=== PATIENT | female | born 1955 | race Caucasian/White ===

== ENCOUNTER 2023-06-06 09:47 | Outpatient (OUT) | payer OTHER, SELFPAY ==
--- NOTE | 2023-06-06 | XR_ITS ---
[address] [address] Patient Name: HENRY BROCK MRN: [id number] date: 1955 Sex: F Assigned Patient Location: [facility] Current Patient Location: [facility] Accession/Order Number: [id number] Exam Date: 06/06/2023 10:08 Report Date: 06/06/2023 11:14 At the request of: SIERRA AUGUSTINE Procedure: XR ankle RT min 3V PROCEDURE: XR ankle RT min 3V, XR foot RT min 3V COMPARISON: 06/06/2023 HISTORY: RIGHT ANKLE PAIN FINDINGS: BONES:Severe hallux valgus with degenerative osteoarthropathy. No acute fracture or dislocation. Mild degenerative changes. SOFT TISSUES:Moderate medial ankle soft tissue swelling EFFUSION:None visible. OTHER: Negative. XR/XR ankle RT min 3V IMPRESSION: Medial ankle soft tissue swelling No acute fracture Electronically authenticated by: JG RUTLEDGE Date: 06/06/2023 11:14
--- NOTE | 2023-06-06 | XR_ITS ---
[address] [address] Patient Name: HENRY BROCK MRN: [id number] date: 1955 Sex: F Assigned Patient Location: [facility] Current Patient Location: [facility] Accession/Order Number: [id number] Exam Date: 06/06/2023 10:08 Report Date: 06/06/2023 11:14 At the request of: SIERRA AUGUSTINE Procedure: XR foot RT min 3V PROCEDURE: XR ankle RT min 3V, XR foot RT min 3V COMPARISON: 06/06/2023 HISTORY: RIGHT ANKLE PAIN FINDINGS: BONES:Severe hallux valgus with degenerative osteoarthropathy. No acute fracture or dislocation. Mild degenerative changes. SOFT TISSUES:Moderate medial ankle soft tissue swelling EFFUSION:None visible. OTHER: Negative. XR/XR foot RT min 3V IMPRESSION: Medial ankle soft tissue swelling No acute fracture Electronically authenticated by: JG RUTLEDGE Date: 06/06/2023 11:14
== END 2023-06-06 09:48 | disposition home or self-care (01) ==
PROVIDERS: Visit Provider Podiatrist Foot & Ankle Surgery
DX: M25.571 Pain in right ankle and joints of right foot (principal)
CPT/HCPCS: 73610; 73630

== ENCOUNTER 2023-07-10 10:05 | Outpatient (OUT) | payer MEDICARE, SELFPAY ==
--- OUTSIDE RECORDS SUMMARY | 2023-07-10 10:23 | XMS_ITS | CCD ---
Author Name Unknown Address [id number] [place] [address] Organization [facility] Care Team Providers Care Quality Head Name Role Phone SHIN SCHWARTZ Unavailable Unavailable [facility] Unavailable Unavailable SHIN ARIAS Unavailable Unavailable Arias Shin NORMAN Primary Care Provider Arias Shin NORMAN Primary Care Provider ATWAY, SAID A Referring Unavailable SHIN ARIAS Primary Care Unavailable ATWAY, SAID A Attending Unavailable ATWAY, SAID A Attending Unavailable SELF, SELF Referring Unavailable SHIN ARIAS Primary Care Unavailable ARIASSHIN AREVALO Primary Care Unavailable ATWAY, SAID A Referring Unavailable ARIASSHIN Primary Care Unavailable ATWAY, SAID A Attending Unavailable Arias hSin NORMAN Primary Care Provider Arias Shin NORMAN Primary Care Provider Arias Shin NORMAN Primary Care Provider SHIN ARIAS Attending Unavailable ARIAS, SHIN Mckeon Primary Care Unavailable ARIAS, SHIN L Primary Care Unavailable ARIAS, SHIN L Attending Unavailable ARIASSHIN Primary Care Unavailable ARIASSHIN L Referring Unavailable ARIAS, SHIN Mckeon Primary Care Unavailable ARIAS, SHIN L Referring Unavailable ARIAS, SHIN Mckeon Primary Care Unavailable ARIAS, SHIN L Referring Unavailable ARIAS, SHIN L Primary Care Unavailable ARIAS, SHIN L Primary Care Unavailable ARIAS, SHIN L Attending Unavailable ARIAS, SHIN Mckeon Primary Care Unavailable ARIAS, SHIN L Attending Unavailable ARIAS, SHIN L Primary Care Unavailable ARIAS, SHIN L Referring Unavailable ARIASSHIN L Primary Care Unavailable ARIAS, SHIN L Attending Unavailable SHIN ARIAS L Primary Care Unavailable CARL LEYVA Attending Unavailable SHIN ARIAS L Primary Care Unavailable CARL LEYVA Attending Unavailable SHIN ARIAS L Primary Care Unavailable SHIN ARIAS L Primary Care Unavailable Shin Arias Primary Care Unavailable Mata [place]ilo Attending Unavailable Shin Arias Primary Care Unavailable Shin Arias Attending Unavailable Shin Arias Referring Unavailable Allergies Allergy Classification Reported Allergen(s) Allergy Type Date of Onset Reaction(s) Facility (20 sources) morphine; Translations: [MORPHINE SULFATE] Drug Allergy 5 Itching [facility] Repository (20 sources) sulfamethoxazole; Translations: [SULFAMETHOXAZOLE ] Drug Allergy 5 Hives [facility] Repository (20 sources) tea tree oil; Translations: [TEA TREE OIL] Drug Allergy 0 Rash [facility] Repository (2 sources) Morphine Drug Allergy 5 Itching [facility] (1 source) Trimethoprim Drug Allergy 0 unknown [facility] Work Phone: (1 source) tea tree Allergy to substance 0 unknown [facility] Work Phone: (1 source) Morphine Drug Allergy 0 [facility] Repository (1 source) Trimethoprim Drug Allergy 0 [facility] Repository (1 source) tea tree Drug allergy (disorder) 0 [facility] Repository Medications Current Medications Medication Drug Class(es) Dates Sig (Normalized) Sig (Original) amphetamine aspartate 2.5 mg / amphetamine sulfate 2.5 mg / dextroamphetamine saccharate 2.5 mg / dextroamphetamine sulfate 2.5 mg oral tablet (20 sources) Central Nervous System Stimulant Start: 05-18-2023 End: 07-23-2023 take 1 tablet by mouth once daily dextroamphetamine- amphetamine (ADDERALL) 10 mg tablet Indications: Concentration deficit Take 0.5-1 tablets by mouth once daily for 30 days. 30 tablet 0 06/23/2023 07/23/2023 Active Start: 02-20-2023 End: 05-12-2023 take 1 tablet by mouth once daily dextroamphetamine-amphetamine (ADDERALL) 10 mg tablet Indications: Concentration deficit Take 0.5-1 tablets by mouth once daily for 30 days. 30 tablet 0 04/12/2023 05/12/2023 Active Start: 02-13-2023 End: 02-16-2023 take 1 tablet by mouth once daily dextroamphetamine-amphetamine (ADDERALL) 10 mg tablet Indications: Concentration deficit Take 0.5-1 tablets by mouth once daily for 30 days. 30 tablet 0 02/13/2023 02/16/2023 Discontinued Start: 12-26-2022 End: 02-04-2023 take 1 tablet by mouth once daily dextroamphetamine-amphetamine (ADDERALL) 10 mg tablet Indications: Concentration deficit Take 0.5-1 tablets by mouth once daily for 30 days. 30 tablet 0 01/05/2023 02/04/2023 Active Start: 11-08-2022 End: 12-24-2022 take 1 tablet by mouth once daily dextroamphetamine-amphetamine (ADDERALL) 10 mg tablet Indications: Concentration deficit Take 0.5-1 tablets by mouth once daily for 30 days. 30 tablet 0 11/08/2022 12/24/2022 Discontinued Start: 10-04-2022 End: 11-03-2022 take 1 tablet by mouth once daily dextroamphetamine-amphetamine (ADDERALL) 10 mg tablet Indications: Concentration deficit Take 0.5-1 tablets by mouth once daily for 30 days. 30 tablet 0 10/04/2022 11/03/2022 Active Start: 06-20-2022 End: 07-21-2022 take 1 tablet by mouth once daily dextroamphetamine-amphetamine (ADDERALL) 10 mg tablet Indications: Concentration deficit Take 0.5-1 tablets by mouth once daily for 30 days. 30 tablet 0 06/21/2022 Active Start: 10-22-2021 End: 06-17-2022 take 1 tablet by mouth once daily dextroamphetamine-amphetamine (ADDERALL) 10 mg tablet Indications: Concentration deficit Take 0.5-1 tablets by mouth once daily for 30 days. 30 tablet 0 05/11/2022 06/17/2022 Discontinued Comment on above: Take 0.5-1 tablets b y mouth once daily for 30 days. Ca-D3-Mag Sn-Cyxh-Ehf-Ravi-Bor (Calcium 600-D3 Plus (Mag-Zinc)) 600 mg calcium- 800 unit-50 mg tablet (1 source) Start: 0 Ca-D3-Mag Ys-Hjsb-Fau-Ravi-Bor (Calcium 600-D3 Plus (Mag-Zinc)) 600 mg calcium- 800 unit-50 mg tablet Active TABLET PO April 01, 2020 12:00am calcium ascorbate 500 mg oral tablet (1 source) Start: 0 take 500 mg by mouth once daily Ascorbate Calcium (Vitamin C) Active 500 MG PO DAILY April 01, 2020 12:00am cholecalciferol 0.01 mg oral capsule (20 sources) Vitamin D Start: 0 take 10 ug by mouth once daily Cholecalciferol (Vitamin D3) Active 10 MCG PO DAILY April 01, 2020 12:00am Start: 08-15-2017 take 1 capsule by mo [facility] once daily Cholecalciferol, Vitamin D3, 5,000 unit cap Take 1 capsule by mouth once daily. 90 capsule 3 08/15/2017 Active Comment on above: Take 1 capsule by mo ut once daily. docusate sodium 100 mg oral capsule (1 source) Start: 10-05-19 19 take 1 capsule by mouth twice daily docusate 100 MG Cap Take 1 capsule by mouth 2 times daily. 0 10/04/2018 Active 1 ml heparin sodium, porcine 5000 unt/ml prefilled syringe (1 source) Unfractionated Heparin, Anti-coagulant Start: 10-04-19 19 heparin 5000 UNIT/ML Solution Indications: DVT/PE prophylaxis Inject 1 mL under the skin 3 times daily (at 8am, 4 pm and 10pm). 0 10/03/2018 Active lisinopril 5 mg oral tablet (1 source) Angiotensin Converting Enzyme Inhibitor Start: 10-05-19 19 take 1 tablet by mouth once daily lisinopril 5 MG Tab tablet Take 1 tablet by mouth daily. 0 10/04/2018 Active meloxicam 15 mg oral tablet (1 source) Nonsteroidal Anti-inflammatory Drug Start: 04-01-20 20 take 1 tablet by mouth once daily Meloxicam (Mobic) 15 mg tablet Active 15 MG PO DAILY April 01, 2020 12:00am Do not take in conjunction with other NSAIDs. Multivitamin With Minerals (Hair,Skin And Nails) tablet (1 source) Start: 04-01-20 take 1 tablet by mouth once daily Multivitamin With Minerals (Hair,Skin And Nails) tablet Active 1 TABLET PO DAILY April 01, 2020 12:00am perflutren lipid microspheres 1.3 mL in NaCl (PF) 0.9% 10 mL injection (DEFINITY) (20 sources) Start: 05-19-19 End: 08-18-19 perflutren lipid microspheres 1.3 mL in NaCl (PF) 0.9% 10 mL injection (DEFINITY) sennosides, chcf 8.6 mg oral tablet (1 source) Start: 10-05-19 19 take 1 tablet by mouth once daily in the morning senna 8.6 MG Tab Take 1 tablet by mouth daily every morning. 0 10/04/2018 Active 125 ml sodium chloride 9 mg/ml prefilled syringe (20 sources) Start: 05-19-19 End: 08-18-19 sodium chloride 0.9 % (flush) 10 mL (BD POSIFLUSH) Turmeric extract (1 source) Start: 04-01-20 Turmeric Active MG PO April 01, 2020 12:00am Completed/Discontinued Medications Medication Drug Class(es) Dates Sig (Normalized) Sig (Original) ascorbic acid 500 mg oral tablet (20 sources) Vitamin C Start: 08-15-2017 take 1 tablet by mouth three times daily ascorbic acid, vitamin C, (VITAMIN C) 500 mg tablet Take 1 tablet by mouth three times daily. 270 tablet 3 08/15/2017 Active Comment on above: Take 1 tablet by portia th three times daily. aspirin 325 mg oral tablet (20 sources) Platelet Aggregation Inhibitor, Nonsteroidal Anti-inflammatory Drug Start: 10-11-2018 End: 11-25-2022 take 1 tablet by mouth once daily aspirin 325 mg tablet Take 1 tablet by mouth once daily. 0 10/15/2018 11/25/2022 Discontinued (Discontinued by Patient) Start: 10-04-2018 take 1 tablet by portia th once daily aspirin EC [address] Take 1 tablet by mouth daily. 0 10/04/2018 Active Start: 11-18-2011 take 4 tablets by mouth once A spirin 81 mg Tab Indications: Chest pain at rest Take 4 tablets by mouth one time only for 1 dose. 4 tablet 0 11/18/2011 Active Comment on above: Take 4 tablets by mo uth one time only for 1 dose. Take 1 tablet by portia once daily. atorvastatin 80 mg oral tablet (2 sources) HMG-CoA Reductase Inhibitor Start: 9 End: 9 take 80 mg by mouth at bedtime Atorvastatin Discontinued 80 MG PO AT BEDTIME October 10, 2018 11:00pm November 22, 2018 3:24pm Start: 10-03-2018 take 1 tablet by portia at bedtime atorvastatin 40 MG Tab tablet Take 1 tablet by mouth at bedtime. 0 10/03/2018 Active cephalexin 500 mg oral capsule (1 source) Cephalosporin Antibacterial Start: 10-23-2019 End: 04-01-2020 take 500 mg by mouth four times daily Cephalexin Discontinued 500 MG PO 4 TIMES DAILY October 22, 2019 11:00pm April 01, 2020 9:49am CPAP (20 sources) Start: 05-14-2020 CPAP Indications: HERNAN (obstructive sleep apnea) Initiate CPAP @ 6 cm of water with humidification. Mask (per patient preference) optional chin strap (if indicated) , filters, tubing, humidifier and lifetime supplies. 1 Device 0 05/14/2020 Active Comment on above: Initiate CPAP @ 6 cm of water with humidification. Mask (per patient preference) optional chin strap (if indicated) , filters, tubing, humidifier and lifetime supplies. cyclobenzaprine hydrochloride 10 mg oral tablet (20 sources) Muscle Relaxant Start: 08-15-2017 End: 11-25-2022 take 1 tablet by mouth three times daily as needed for muscle spasms cyclobenzaprine (FLEXERIL) 10 mg tablet Indications: Fall, initial encounter Take 1 tablet by mouth three times daily as needed for Muscle Spasm. 30 tablet 0 08/15/2017 Active Comment on above: Take 1 tablet by portia three times daily as needed for Muscle Spasm. dexmethylphenidate hydrochloride 5 mg oral tablet (17 sources) Central Nervous System Stimulant Start: 01-23-2021 End: 10-22-2021 take 1 tablet by mouth twice daily dexmethylphenidate HCl (FOCALIN) 5 mg tablet Indications: Concentration deficit Take 1 tablet by mouth twice daily for 14 days. 28 tablet 0 10/08/2021 10/22/2021 Discontinued Comment on above: Take 1 tablet by portia twice daily for 30 days. Take 1 tablet by portia twice daily for 14 days. Take 1 tablet by portia twice daily for 30 days. Do not start before January 23, 2021. diazePAM 2 mg oral tablet (1 source) Benzodiazepine Start: 09-29-2018 End: 10-02-2018 take 2 mg by mouth three times daily Diazepam Discontinued 2 MG PO THREE TIMES A DAY 10 3 September 28, 2018 11:00pm October 01, 2018 11:06pm FLUoxetine 10 mg oral capsule (20 sources) Serotonin Reuptake Inhibitor Start: 02-08-2023 take 1 capsule by mouth once daily FLUoxetine (PROZAC) 10 mg capsule Indications: Adjustment insomnia , Anxiety with depression Take 1 capsule by mouth once daily. 90 capsule 1 02/08/2023 Active Start: 11-25-2022 take 1 capsule by mo [facility] once daily FLUoxetine (PROZAC) 10 mg capsule Indications: Adjustment insomnia , Anxiety with depression Take 1 capsule by mouth once daily. 90 capsule 1 11/25/2022 Active Start: 06-24-2021 End: 01-21-2022 take 1 capsule by mouth once daily FLUoxetine (PROZAC) 20 mg capsule Indications: Anxiety with depression , Mood disorder (HCC) Take 1 capsule by mouth once daily. 90 capsule 1 10/22/2021 01/21/2022 Discontinued Start: 10-11-2018 take 30 mg by mouth once daily Fluoxetine Active 30 MG PO DAILY October 10, 2018 11:00pm Start: 10-04-2018 take 3 capsules by [facility] once daily fluoxetine 10 MG Cap capsule Take 3 capsules by mouth daily. 0 10/04/2018 Active Start: 08-02-2018 End: 10-11-2018 Fluoxetine (Prozac) 40 mg ca psule Discontinued 30 MG PO DAILY August 01, 2018 11:00pm October 11, 2018 8:58am Comment on above: Take 1 capsule by mo [facility] once daily. hydrOXYzine hydrochloride 25 mg oral tablet (3 sources) Antihistamine Start: 08-11-19 End: 11-26-19 take 0.5-1 tablets by mouth four times daily as needed hydrOXYzine HCl (ATARAX) 25 mg tablet Indications: Dermatitis contact Take 0.5-1 tablets by mouth four times daily as needed for itching/rash. 20 tablet 0 08/10/2022 11/25/2022 Discontinued (Course of therapy completed) Comment on above: Take 0.5-1 tablets b y mouth four times daily as needed for itching/rash. L-LYSINE ORAL (20 sources) take 1 capsule by mouth once daily L-LYSINE ORAL Take 1 capsule by mouth once daily. 0 Active Comment on above: Take 1 capsule by mo uth once daily. mometasone furoate 0.001 mg/mg topical ointment (11 sources) Corticosteroid Start: 10-06-19 23 mometasone (ELOCON) 0.1 % ointment Indications: Rash and nonspecific skin eruption Apply to affected area once daily as needed. Once daily as needed on rash 15 g 2 10/05/2022 Active Comment on above: Apply to affected ar ea once daily as needed. Once daily as needed on rash mupirocin 0.02 mg/mg topical ointment (11 sources) RNA Synthetase Inhibitor Antibacterial Start: 10-06-19 23 mupirocin (BACTROBAN) 2 % ointment Indications: Rash and nonspecific skin eruption Apply to affected area twice daily as needed (skin infection). 30 g 0 10/05/2022 Active Comment on above: Apply to affected ar ea twice daily as needed (skin infection). omega 9-sjv-zvl-fish oil (FISH OIL) 100-160-1,000 mg cap (20 sources) omega 4-cqj-fyn-fish oil (FISH OIL) 100-160-1,000 mg cap Take 1 capsule by mouth. 0 Active Comment on above: Take [address] [facility]. ondansetron 4 mg disintegrating oral tablet (3 sources) Serotonin-3 Receptor Antagonist Start: 10-04-19 19 End: 10-12-19 19 take 4 mg by mouth every six hours as needed Ondansetron Discontinued 4 MG PO EVERY 6 HOURS NEEDED October 03, 2018 8:27pm October 11, 2018 8:58am Start: 10-03-2018 [facility] hours as needed ondansetron 4 MG Tab tablet Take 1 tablet by mouth every 6 hours as needed for Nausea / Vomiting. 0 10/03/2018 Active Start: 09-29-2018 End: 10-03-2018 take 4 mg by mouth every eight hours as needed Ondansetron Discontinued 4 MG PO EVERY 8 HOURS NEEDED September 28, 2018 11:00pm October 03, 2018 8:27pm predniSONE 20 mg oral tablet (3 sources) Start: 08-10-2022 End: 11-25-2022 take 1 tablet by mouth once daily at mealtime predniSONE (DELTASONE) 20 mg tablet Indications: Dermatitis contact Take 1 tablet by mouth once daily. With food 7 tablet 0 08/10/2022 11/25/2022 Discontinued (Course of therapy completed) Comment on above: Take 1 tablet by portia th once daily. With food PROPYLENE GLYCOL/PEG 400 (BLINK TEARS LUBRICATING) Eye Drops (20 sources) take 1 drop(s) into the eye(s) four times daily PROPYLENE GLYCOL/PEG 400 (BLINK TEARS LUBRICATING) Eye Drops Use 1 Drop in both eyes four times daily. 0 Active Comment on above: Use 1 Drop in both e yes four times daily. selenium 200 mcg cap (20 sources) selenium 200 mcg cap Take by mouth. 0 Active Comment on above: Take by mouth. thyroid (chcf) 60 mg oral tablet (20 sources) Start: 05-03-2023 take 1 tablet by mouth once daily ARMOUR THYROID 60 mg tablet Indications: Hypothyroidism, unspecified type Take 1 tablet by mouth once daily. 90 tablet 1 05/03/2023 Active Start: 02-08-2023 take 1 tablet by portia th once daily ARMOUR THYROID 60 mg tablet Indications: Hypothyroidism, unspecified type Take 1 tablet by mouth once daily. 90 tablet 1 02/08/2023 Active Start: 08-10-2022 take 1 tablet by portia th once daily ARMOUR THYROID 60 mg tablet Indications: Hypothyroidism, unspecified type Take 1 tablet by mouth once daily. 90 tablet 1 08/10/2022 Active Start: 10-11-2018 take 90 mg by mouth once daily Thyroid (Pork) Active 90 MG PO DAILY@0600 October 10, 2018 11:00pm Start: 09-29-2018 End: 08-10-2022 take 1 tablet by mouth once daily ARMOUR THYROID 90 mg tablet Take 1 tablet by mouth once daily. 30 tablet 0 07/21/2022 08/10/2022 Discontinued Start: 03-19-2018 End: 08-10-2022 take 1 tablet by mouth once daily in the morning Thyroid, Pork, (NATURE-THROID) 195 mg tab Indications: Fatigue, unspecified type , Hypothyroidism, unspecified type 1 tablet PO daily in the morning 30 tablet 11 03/19/2018 08/10/2022 Discontinued Comment on above: 1 tablet PO daily in the morning Take 1 tablet by portia th daily before breakfast. Take 1 tablet by portia th once daily. traZODone hydrochloride 50 mg oral tablet (20 sources) Serotonin Reuptake Inhibitor Start: 06-10-2021 End: 12-26-2022 traZODone (DESYREL) 50 mg tablet Indications: Situational insomnia , Anxiety with depression TAKE 1 TO 2 TABLETS AT BEDTIME FOR SLEEP 90 tablet 1 12/26/2022 Active Comment on above: Take 1-2 tablets by mouth daily at bedtime. For sleep TAKE 1 TO 2 TABLETS AT BEDTIME FOR SLEEP triamcinolone acetonide 5 mg/ml topical cream (20 sources) Corticosteroid Start: 08-10-2022 triamcinolone acetonide (KENALOG) 0.5 % cream Indications: Dermatitis contact Apply 1 application to affected area three times daily. For rash/itching. Apply sparingly. Avoid face/skin fold. 15 g 1 08/10/2022 Active Start: 08-15-2017 End: 08-10-2022 triamcinolone acetonide (JJ ALOG) 0.1 % cream Indications: Other eczema Apply 1 application to affected area twice daily as needed. Apply sparingly to area for rash/itching. 30 g 1 08/15/2017 08/10/2022 Discontinued Comment on above: Apply 1 application to affected area twice daily as needed. Apply sparingly to area for rash/itching. Apply 1 application to affected area three times daily. For rash/itching. Apply sparingly. Avoid face/skin fold. Vitamin B Complex (20 sources) take 1 tablet by mouth once daily vitamin B complex (B COMPLEX ORAL) Take 1 tablet by mouth once daily. 0 Active Comment on above: Take 1 tablet by portia th once daily. Zinc Sulfate (20 sources) zinc sulfate (ZINC-15 ORAL) Take by mouth. 0 Active Comment on above: Take by mouth. 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 artery; Translations: [Cerebral infarction due to unspecified occlusion or stenosis of right cerebellar artery] Onset: 09-30-2018 10-30-2018 Chronic Adjustment disorders (20 sources) Stress; Translations: [Reaction to severe stress, unspecified] Onset: 02-28-2017 02-28-2017 Chronic Anxiety disorders (20 sources) Anxiety; Translations: [Anxiety disorder, unspecified] Onset: 12-27-2012 12-27-2012 Chronic Cataract (20 sources) Bilateral age-related cataract; Translations: [Unspecified age-related cataract] Onset: 01-21-2022 Chronic Conditions associated with dizziness or vertigo (2 sources) Benign paroxysmal positional vertigo; Translations: [Benign paroxysmal vertigo, unspecified ear] Episodic Disorders of lipid metabolism (20 sources) Dyslipidemia; Translations: [Hyperlipidemia, unspecified] Onset: 11-08-2010 03-24-2021 Chronic Disorders usually diagnosed in infancy, childhood, or adolescence (20 sources) Attention deficit hyperactivity disorder, predominantly inattentive type; Translations: [Other specified behavioral and emotional disorders with onset usually occurring in childhood and adolescence] Onset: 09-21-2020 09-21-2020 Chronic Influenza (1 source) Influenza-like illness; Translations: [Influenza due to unidentified influenza virus with other respiratory manifestations] 01-25-2023 Episodic Miscellaneous mental health disorders (20 sources) Insomnia; Translations: [Other insomnia not due to a substance or known physiological condition] Onset: 12-21-2019 12-21-2019 Chronic Miscellaneous mental health disorders (1 source) Acute insomnia; Translations: [Adjustment insomnia] 11-25-2022 Episodic Mood disorders (20 sources) Depressive disorder; Translations: [Depression] Onset: 02-08-2013 02-08-2013 Chronic Nutritional deficiencies (20 sources) Vitamin D deficiency; Translations: [Vitamin D deficiency, unspecified] Onset: 10-30-2013 10-30-2013 Chronic Occlusion or stenosis of precerebral arteries (20 sources) Bilateral stenosis of vertebral arteries; Translations: [Occlusion and stenosis of bilateral vertebral arteries] Onset: 10-30-2018 10-30-2018 Chronic Open wounds of extremities (1 source) Laceration of right elbow; Translations: [Laceration without foreign body of right elbow, initial encounter] Episodic Osteoarthritis (20 sources) Osteoarthritis; Translations: [Unspecified osteoarthritis, unspecified site] Onset: 11-08-2010 08-08-2011 Chronic Other congenital anomalies (20 sources) Metatarsus primus varus; 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, unspecified foot] Onset: 09-02-2011 09-02-2011 Chronic Other connective tissue disease (1 source) Pain in both feet; Translations: [Pain in right foot] Episodic Other eye disorders (20 sources) Bilateral vitreous floaters; Translations: [Other vitreous opacities, bilateral] Onset: 02-23-2016 02-23-2016 Chronic Other liver diseases (5 sources) Alkaline phosphatase raised; Translations: [Abnormal levels of other serum enzymes] Episodic Other lower respiratory disease (2 sources) Shortness of breath; Translations: [SOB (shortness of breath)] Onset: 07-19-2022 Episodic Other nervous system disorders (20 sources) Disturbance of attention; Translations: [Attention and concentration deficit] Onset: 02-28-2017 02-28-2017 Chronic Other non-traumatic joint disorders (1 source) Chronic pain of right upper limb; Translations: [Pain in right shoulder] Episodic Other non-traumatic joint disorders (1 source) Chronic ankle pain; Translations: [Pain in right ankle and joints of right foot] Episodic Other non-traumatic joint disorders (1 source) Swollen ankle region; Translations: [Effusion, right ankle] Episodic Other skin disorders (1 source) Eruption; Translations: [Rash and other nonspecific skin eruption] Episodic Other upper respiratory infections (1 source) Sore throat symptom; Translations: [Acute pharyngitis, unspecified] 01-25-2023 Episodic Residual codes; unclassified (20 sources) Obstructive sleep apnea syndrome; Translations: [Obstructive sleep apnea (adult) (pediatric)] Onset: 05-23-2014 05-23-2014 Chronic Residual codes; unclassified (20 sources) Daytime somnolence; Translations: [Other hypersomnia] Onset: 05-23-2014 05-23-2014 Chronic Residual codes; unclassified (1 source) Influenza-like symptoms; Translations: [Other general symptoms and signs] Episodic Spondylosis; intervertebral disc disorders; other back problems (20 sources) Degeneration of lumbar intervertebral disc; Translations: [Other intervertebral disc degeneration, lumbar region] Onset: 07-17-2017 07-17-2017 Chronic Superficial injury; contusion (1 source) Contusion of elbow; Translations: [Contusion of right elbow, initial encounter] Episodic Syncope (2 sources) Vasovagal symptom; Translations: [Syncope and collapse] Episodic Thyroid disorders (20 sources) Hypothyroidism; Translations: [Hypothyroidism, unspecified] Onset: 10-27-2014 Chronic Varicose veins of lower extremity (20 sources) Venous varices; Translations: [Asymptomatic varicose veins of unspecified lower extremity] 08-08-2011 Episodic Past or Other Problems Problem Classification Problem Date Documented Date Episodic/Chronic Allergic reactions (3 sources) Contact dermatitis; Translations: [Unspecified contact dermatitis, unspecified cause] Onset: 10-05-2022 Episodic Blindness and vision defects (20 sources) Diplopia; Translations: [Diplopia] Onset: 01-21-2022 Episodic Diabetes mellitus without complication (20 sources) Hyperglycemia; Translations: [Hyperglycemia, unspecified] Onset: 03-24-2021 03-24-2021 Episodic Malaise and fatigue (20 sources) Fatigue; Translations: [Other fatigue] Onset: 02-28-2017 02-28-2017 Episodic Nutritional deficiencies (20 sources) Cobalamin deficiency; Translations: [Deficiency of other specified B group vitamins] Onset: 03-24-2021 03-24-2021 Episodic Other acquired deformities (20 sources) Acquired deformity of right foot; Translations: [Unspecified acquired deformity of right lower leg] Onset: 06-23-2021 06-23-2021 Episodic Other and unspecified benign neoplasm (20 sources) Benign neoplasm of skin of shoulder; Translations: [Melanocytic nevi of unspecified upper limb, including shoulder] Onset: 09-16-2015 09-16-2015 Episodic Other and unspecified benign neoplasm (20 sources) Dysplastic nevus of trunk; Translations: [Melanocytic nevi of trunk] Onset: 09-16-2015 09-16-2015 Episodic Other and unspecified benign neoplasm (5 sources) Dysplastic nevus of skin; Translations: [Melanocytic nevi of unspecified upper limb, including shoulder] Onset: 09-16-2015 09-16-2015 Episodic Other bone disease and musculoskeletal deformities (20 sources) Somatic dysfunction of pelvic region; Translations: [Segmental and somatic dysfunction of pelvic region] Onset: 11-01-2016 11-01-2016 Episodic Other bone disease and musculoskeletal deformities (20 sources) Somatic dysfunction of lumbar region; Translations: [Segmental and somatic dysfunction of lumbar region] Onset: 11-01-2016 11-01-2016 Episodic Other circulatory disease (20 sources) History of cerebellar stroke; Translations: [Personal history of transient ischemic attack (TIA), and cerebral infarction without residual deficits] Onset: 05-11-2022 05-11-2022 Episodic Other circulatory disease (1 source) Personal history of transient ischemic attack (TIA), and cerebral infarction without residual deficits; Translations: [Hx of ischemic vertebrobasilar artery cerebellar stroke] Onset: 05-11-2022 Episodic Other connective tissue disease (20 sources) Metatarsalgia; Translations: [Metatarsalgia, unspecified foot] Onset: 09-02-2011 09-02-2011 Episodic Other connective tissue disease (20 sources) Pain in right foot; Translations: [Pain in right foot] Onset: 06-23-2021 06-23-2021 Episodic Other connective tissue disease (20 sources) Tendonitis of right ankle; Translations: [Other enthesopathy of right foot and ankle] Onset: 07-19-2022 Episodic Other eye disorders (20 sources) Tear film insufficiency; Translations: [Dry eye syndrome of unspecified lacrimal gland] Onset: 02-23-2016 02-23-2016 Episodic Other liver diseases (1 source) Abnormal levels of other serum enzymes; Translations: [Elevated alkaline phosphatase level] Onset: 10-05-2022 Episodic Other lower respiratory disease (20 sources) Dyspnea; Translations: [Shortness of breath] Onset: 07-19-2022 Episodic Other non-traumatic joint disorders (20 sources) Pain of left wrist; Translations: [Pain in left wrist] Onset: 09-21-2020 09-21-2020 Episodic Other screening for suspected conditions (not mental disorders or infectious disease) (20 sources) Patient encounter status; Translations: [Encounter for screening mammogram for malignant neoplasm of breast] Onset: 03-31-2016 03-31-2016 Episodic Other skin disorders (20 sources) Loss of hair; Translations: [Nonscarring hair loss, unspecified] Onset: 07-19-2022 Episodic Other skin disorders (1 source) Nonscarring hair loss, unspecified; Translations: [Hair thinning] Onset: 07-19-2022 Episodic Residual codes; unclassified (20 sources) Insomnia; Translations: [Insomnia, unspecified] Onset: 12-27-2012 12-27-2012 Episodic Residual codes; unclassified (20 sources) Exposure to mercury; Translations: [Contact with and (suspected) exposure to other hazardous metals] Onset: 03-24-2021 03-24-2021 Episodic Spondylosis; intervertebral disc disorders; other back problems (20 sources) Chronic low back pain; Translations: [Chronic low back pain] Onset: 11-08-2010 08-08-2011 Episodic Results Test Name Value Interpretation Reference Range Facility Chest PA and Lateralon 06-20 Chest PA and Lateral [facility] Imaging Services [address] [place] [address] Chest PA and Lateral MR#: [id number] Acct: [id number] Name: HENRY OLIVEIRA Rep #: [id number] : 1955 F 67 From: Sathya Everett PCP: Dr. Shin Arias DO Status: REG CLI Study: Chest PA and Lateral Date of Exam: 06/20/23 Exam# [id number] Ordering Dr: Shin Arias DO [id number] INDICATION: Shortness of breath EXAMINATION/TECHNIQUE: X-RAY - XR Chest 2 Views COMPARISON: No relevant prior comparison study available FINDINGS: LINES/DEVICES: None. LUNGS: No consolidation, edema or effusion. No pneumothorax. MEDIASTINUM AND CARDIOVASCULAR STRUCTURES: Cardiac silhouette not enlarged. Central airways and mediastinal contour are unremarkable. BONES AND SOFT TISSUES: Unremarkable. RAD/Chest PA and Lateral IMPRESSION: No radiographic evidence of acute cardiopulmonary disease. Electronically Signed: Sathya Coreas MD at 9:45 EST , CC: Dr. Shin Arias DO Daily Sales Audit Clerk: Signed Normal [facility] Echo Completeon 06-20-2023 Echo Complete [facility] Cardi[facility] [address] [place] [address] Echo Complete 06/20/23 1324 MR#: [id number] Acct: [id number] Name: HENRY OLIVEIRA Rep #: [id number] : 1955 67 From: Shilo August MD Attending Dr: Dr. Shin Arias, Status: R EG CLI Ordering Dr: Shin Arias DO Date: 06/20/23 Location: [facility] Sex: F C Admitted: Reason For Study: SOB Procedure This was a 2D Doppler, Color Flow transthoracic echocardiogram. Exam performed in department. Left Ventricle Normal size and thickness. The left ventricular ejection fraction is 60 %. Normal diastology for age. Right Ventricle Normal right ventricle. Atria Normal left atrium. The right atrium is mildly enlarged. Mitral Valve Trivial mitral valve insufficiency. Tricuspid Valve Moderate to severe tricuspid valve regurgitation. Right ventricular systolic pressure estimated to be 37 mmHg. Aortic Valve Trisinus/trileaflet aortic valve. Pulmonic Valve The pulmonic valve is not well visualized. Great Vessels Normal sized aortic root. Pericardium/Pleural No pericardial effusion. MMode/2D Measurements Calculations LVIDd: 4.7 cm IVSd: 0.74 cm Ao root diam: 3.2 cm LVIDs: 3.0 cm LVPWd: 0.80 cm RVDd: 3.3 cm FS: 35.8 % LAV(MOD-bp): 49.9 ml LVAd ap4: 26.6 cm2 LVAd ap2: 22.8 cm2 LAV(MOD-bp) Indexed: 32.0 ml/m2 LVLd ap4: 7.5 cm LVLd ap2: 7.6 cm LAV(MOD-sp2): 49.8 ml EDV(MOD-sp4): 78.7 ml EDV(MOD-sp2): 55.7 ml LAV(MOD-sp4): 38.7 ml EDV(sp4-el): 80.7 ml EDV(sp2-el): 58.3 ml LVAs ap4: 15.4 cm2 LVAs ap2: 14.3 cm2 LVLs ap4: 6.1 cm LVLs ap2: 6.8 cm ESV(MOD-sp4): 33.8 ml ESV(MOD-sp2): 25.4 ml ESV(sp4-el): 33.1 ml ESV(sp2-el): 25.6 ml EF(MOD-sp4): 57.0 % EF(MOD-sp2): 54.4 % EF(sp4-el): 58.9 % SV(MOD-sp4): 44.9 ml SV(MOD-sp2): 30.3 ml SV(sp4-el): 47.5 ml LA dimension(2D): 2.8 cm LA A4 area: 14.3 cm2 RA A4 area: 16.4 cm2 TAPSE: 2.8 cm Time Measurements MV dec time: 0.20 sec Doppler Measurements Calculations MV E max yuni: 76.6 cm/sec Lat Peak E' Yuni: 9.6 cm/sec Med Peak E' Yuni: 9.7 cm/sec MV A max yuni: 84.1 cm/sec E/E' lat: 8.0 E/E' med: 7.9 MV E/A: 0.91 MV V2 max: 89.3 cm/sec MV P1/2t max yuni: 93.1 cm/sec Ao V2 max: 127.8 cm/sec MV max P.2 mmHg MV P1/2t: 72.8 msec Ao max P.5 mmHg MV V2 mean: 46.0 cm/sec MV dec slope: 374.4 cm/sec2 Ao V2 mean: 85.6 cm/sec MV mean P.1 mmHg Ao mean P.4 mmHg MV V2 VTI: 28.1 cm MVA(P1/2t): 3.0 cm2 Ao V2 VTI: 33.8 cm AV (velocity ratio): 0.77 LV V1 max: 101.0 cm/sec PA V2 max: 83.8 cm/sec TR max yuni: 235.1 cm/sec LV V1 max P.1 mmHg PA V2 mean: 57.2 cm/sec TR max P.1 mmHg LV V1 mean P.3 mmHg LV V1 mean: 72.1 cm/sec LV V1 VTI: 26.2 cm ECHO/Echo Complete Interpretation Summary The left ventricular ejection fraction is 60 %. The right atrium is mildly enlarged. Moderate to severe tricuspid valve regurgitation Right ventricular systolic pressure estimated to be 37 mmHg. Ordering Physician: Shin Arias Referring Physician: Shin Arias Performed By: Angela Marshall, ROZINA, RVT 06/20/234 Date Shilo August MD CC: Dr. Shin Arias DO Date Dictated: 06/20/23 1324 Date Transcribed: 06/20/231623 Daily Sales Audit Clerk: Signed [facility] 06-09-2023 [facility] Telephone (FAMPST) HENRY OLIVEIRA ([id number]) 1955 F Date Time Provider Department 06/09/23 SHIN ARIAS During your visit today, we recorded the following information about you: Mary Jo Alcantara 06/09/2023 4:24 PM Signed Tawana is calling Shin Arias DO today to request a RX to start generic synthroid as the [employer] thyroid has become too expensive. Patient has not picked up that RX from [facility] as it was to costly. Please send the levothyroxine to [facility] if provider agrees. Patient is almost out of this and only has two tablets left. Please call patient to advise of provider response at cell phone below which has been verified. Patient also asking for labs to do blood work if provider will need. Patient has been identified by name and birthdate. Duration of symptoms: N/A Person calling: self Call patient at: on cell [phone] (home) [phone] (work) [phone] (cell) Was an appointment scheduled: No Closing statement: Results or non-symptom based questions: Thank you for calling [facility], your call will be returned within the next business day. [place] Jo [place] [facility] [place] Fagan RN 06/12/2023 9:27 AM Signed Pt wants to cancel this request. States she wants to stick with the [employer] thyroid for now. Allergies As of Date: 06/09/2023 Noted Allergy Reaction BACTRIM (SULFAMETHOXAZOLE) 05/23/2014 4 - Hives MORPHINE SULFATE 03/30/2005 9 - Itching TEA TREE OIL 07/22/2009 2 - Rash Date Reviewed: 05/03/2023 Reviewed by: Lupe Stoll LPN - Fully Assessed Reason for Visit: Medication Request [138] Prescriptions as of 06/12/2023 - dextroamphetamine-amph etamine (ADDERALL) 10 mg tablet Take 0.5-1 tablets by mouth once daily for 30 days. - ARMOUR THYROID 60 mg tablet Take 1 tablet by mouth once daily. - FLUoxetine (PROZAC) 10 mg capsule Take 1 capsule by mouth once daily. - traZODone (DESYREL) 50 mg tablet TAKE 1 TO 2 TABLETS AT BEDTIME FOR SLEEP - mometasone (ELOCON) 0.1 % ointment Apply to affected area once daily as needed. Once daily as needed on rash - mupirocin (BACTROBAN) 2 % ointment Apply to affected area twice daily as needed (skin infection). - omega 8-vrc-xwd-fish oil (FISH OIL) 100-160-1,000 mg cap Take 1 capsule by mouth. - selenium 200 mcg cap Take by mouth. - zinc sulfate (ZINC-15 ORAL) Take by mouth. - CPAP Initiate CPAP @ 6 cm of water with humidification. Mask (per patient preference) optional chin strap (if indicated) , filters, tubing, humidifier and lifetime supplies. - vitamin B complex (B COMPLEX ORAL) Take 1 tablet by mouth once daily. - L-LYSINE ORAL Take 1 capsule by mouth once daily. - cyclobenzaprine (FLEXERIL) 10 mg tablet Take 1 tablet by mouth three times daily as needed for Muscle Spasm. - Cholecalciferol, Vitamin D3, 5,000 unit cap Take 1 capsule by mouth once daily. - ascorbic acid, vitamin C, (VITAMIN C) 500 mg tablet Take 1 tablet by mouth three times daily. - PROPYLENE GLYCOL/PEG 400 (BLINK TEARS LUBRICATING) Eye Drops Use 1 Drop in both eyes four times daily. - Aspirin 81 mg Tab Take 4 tablets by mouth one time only for 1 dose. Facility-Administered Medications as of 06/12/2023 - perflutren lipid microspheres 1.3 mL in NaCl (PF) 0.9% 10 mL injection (DEFINITY) - sodium chloride 0.9 % (flush) 10 mL (BD POSIFLUSH) Meds Comments as of 08/09/2021: .rxe Problem List As Of Date 06/09/2023 Noted Resolved DEPRESSIVE DISORDER NEC [F32.89] 09/27/2006 09/19/2008 SPRAIN OF NECK [S13.9XXA] 10/11/2006 06/28/2007 CERVICALGIA [M54.2] 11/13/2006 06/28/2007 ANXIETY STATE NOS [F41.1] 12/12/2006 09/19/2008 Asymptomatic varicose veins [I83.90] Adjustment disorder with mixed anxiety and depr*09/19/2008 11/30/2015 Dyslipidemia [E78.5] 11/08/2010 Chronic low back pain [M54.50, G89.29] 11/08/2010 Degenerative joint disease [M19.90] 11/08/2010 Metatarsalgia [M77.40] 09/02/2011 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] 09/02/2011 Other hammer toe (acquired) [M20.40] 09/02/2011 Hallux valgus (acquired) [M20.10] 09/02/2011 Traumatic tear of right rotator cuff [S46.011A] 05/03/2012 11/11/2013 Rotator cuff (capsule) sprain [S43.429A] 05/23/2012 11/11/2013 Insomnia [G47.00] 12/27/2012 Anxiety [F41.9] 12/27/2012 Depression [F32.A] 02/08/2013 Vitamin D deficiency [E55.9] 10/30/2013 Pain in joint, shoulder region [M25.519] 11/04/2013 11/30/2015 HERNAN (obstructive sleep apnea) [G47.33] 05/23/2014 Excessive daytime sleepiness [G47.19] 05/23/2014 Hypothyroidism [E03.9] 10/27/2014 Atypical nevus of shoulder [D22.60] 09/16/2015 Atypical nevus of back [D22.5] 09/16/2015 Vitreous floaters of both eyes [H43.393] 02/23/2016 Dry eye syndrome [H04.129] 02/23/2016 Encounter for screening mammogram for malignant*03/31/2016 Acute bilateral low back pain with right-sided *11/01/2016 (more content not included)... Normal [facility] CNOVon 05-03-2023 CNOV Office Visit (FAMPWS ) HENRY OLIVEIRA ([id number]) 1955 F Date Time Provider Department 05/03/23 9:40 AM [facility] During your visit today, we recorded the following information about you: Temperature Pulse Respiration Blood pressure 97.1 degrees 64/minute 16/minute 120/80 Weight 54.9 kg Shin Arias DO 05/03/2023 2:17 PM Signed CC: Henry Oliveira is a 67 year old female who presents to the office for follow up HPI: Sen in office in October, at that time History of stroke 4 years ago, no new neurologic symptoms. Still able to drive without difficulty. Sometimes with low back pain/aching that comes and goes with prolonged standing or walking. 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 Did have some b/l foot soreness and low back pain at work and end of the day, better with rest. No injuries. Bunions b/l feet and hammer toe 2nd toe left foot, has been seen by Podiatry, doesn't want to have surgery if doesn't have to Fatigue, stable, is taking supplements for B complex and vitamin D and trying to eat healthy diet. Mood, still sometimes very frustrated with her daughter and her lack of wanting to be in her life, still watching her 2 granddaughters several days a week and enjoying this although makes her feel tired afterwards. No SI or HI. Doesn't want to start new medication for mood. Hypothyroidism, taking armour thyroid supplement, feels stable TSH Date Value Ref Range Status 10/14/2022 1.130 0.270 - 4.200 mIU/L Final Free T4 Date Value Ref Range Status 10/14/2022 1.2 0.9 - 1.7 ng/dL Final Free T3 5.2 10/14/2022 HPL, trying to cut out sugar from her diet, has made drastic dietary changes, doesn't want to start statin therapy Cholesterol, Total Date Value Ref Range Status 10/14/2022 200 (H) <200 mg/dL Final Comment: <200 mg/dL, Desirable 200-239 mg/dL, Borderline high >239 mg/dL, High HDL Cholesterol Date Value Ref Range Status 10/14/2022 71 >39 mg/dL Final Comment: 40-59 mg/dL, Acceptable >59 mg/dL, High: Negative risk factor for coronary heart disease <40 mg/dL, Low: Positive risk factor for coronary heart disease LDL Cholesterol Date Value Ref Range Status 10/14/2022 121 (H) <100 mg/dL Final Comment: <100 mg/dL, Optimal 100-129 mg/dL, Near optimal/above optimal 130-159 mg/dL, Borderline high 160-189 mg/dL, High >189 mg/dL, Very high Secondary prevention optimal LDL Cholesterol levels are recommended to be < 70 mg/dL Triglyceride Date Value Ref Range Status 10/14/2022 38 <150 mg/dL Final Comment: <150 mg/dL, Normal 150-199 mg/dL, Borderline high 200-499 mg/dL, High >499 mg/dL, Very high Glucose (mg/dL) Date Value 10/14/2022 83 06/30/2021 88 Potassium (mmol/L) Date Value 10/14/2022 3.9 06/30/2021 4.8 Sodium (mmol/L) Date Value 10/14/2022 143 06/30/2021 139 Chloride (mmol/L) Date Value 10/14/2022 106 06/30/2021 103 CO2 (mmol/L) Date Value 10/14/2022 25 06/30/2021 29 Creatinine (mg/dL) Date Value 10/14/2022 0.56 06/30/2021 0.57 BUN (mg/dL) Date Value 10/14/2022 9 06/30/2021 13 Anion Gap (mmol/L) Date Value 10/14/2022 12 06/30/2021 7 Calcium (mg/dL) Date Value 06/30/2021 9.6 Calcium, Total (mg/dL) Date Value 10/14/2022 9.7 Protein, Total (g/dL) Date Value 10/14/2022 6.6 06/30/2021 7.0 Albumin (g/dL) Date Value 10/14/2022 4.5 06/30/2021 4.4 Bilirubin, Total (mg/dL) Date Value 10/14/2022 0.5 06/30/2021 0.4 Alkaline Phosphatase (U/L) Date Value 10/14/2022 104 06/30/2021 106 AST (U/L) Date Value 10/14/2022 20 06/30/2021 23 ALT (U/L) Date Value 10/14/2022 14 06/30/2021 16 Hemoglobin (g/dL) Date Value 10/14/2022 13.9 06/30/2021 13.8 Hematocrit (%) Date Value 10/14/2022 42.5 06/30/2021 42.5 WBC (k/uL) Date Value 10/14/2022 5.09 06/30/2021 5.11 Currently Admits to having some intermittent feeling of dyspnea, no chest pressure or pain symptoms, no dizziness/Lh or edema, no fevers or chills. No known history of CAD Anxiety, depression, taking prozac, recently has been having increased stressors with her grown adult daughter and has difficulty with talking with her and she would like to have a closer relationship. She is babysitting her daughter's 2 children, her grandchildren, which she really enjoys and this brings her melyssa. 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 Interested in seeing [employer] at [facility]. PAST MEDICAL HISTORY Diagnosis Date Abnormal glandular Papanicolaou smear of cervix Abn. Pap smear (cervix) Asymptomatic varicose veins Depressive disorder, not elsewhere classified 09/27/2006 Hearing decreased Hyperlipidemia Hypothyroidism 2010 HERNAN on CPAP [facility] Peripheral vascular disease, (more content not included)... Normal [facility] [id number] 05-03-2023 ECG01 Ventricular Rate : 5 2 BPM Atrial Rate : 52 BPM P-R Interval : 160 ms QRS Duration : 84 ms Q-T Interval : 442 ms QTC Calculation(Bazett) : 411 ms Calculated P Raymond : 67 degrees Calculated R Raymond : 28 degrees Calculated T Raymond : 55 degrees SINUS BRADYCARDIA OTHERWISE NORMAL ECG Confirmed by ISRAEL LIU D.O. ([id number]) on 05/19/2023 3:41:26 PM NAME : HENRY OLIVEIRA PID : [id number] : 1955 Gender : Female Race : ORD : Procedure Date : May 03 2023 10:54:51 Edit Date : May 19 2023 15:41:31 Diagnosis: SINUS BRADYCARDIA OTHERWISE NORMAL ECG Confirmed by ISRAEL LIU D.O. ([id number]) on 05/19/2023 3:41:26 PM Test Reason : Location : 185 : [facility] Overread By : ISRAEL LIU D.O. Edited By : ISRAEL LIU D.O. Referred By : , Acquired by : Ana arcos [facility] HENRY OLIVEIRA ([id number]) 1955 F Date Time Provider Department 02/09/23 [facility] During your visit today, we recorded the following information about you: Marie Dobson Mabeth 02/09/2023 8:48 AM Signed Received fax from pharmacy PA needed for [place] thyroid. Electronic PA submitted Sera Matt Ma, Ma 02/09/2023 10:00 AM Signed PA denied [place] Thyroid is not covered and does not look has tried formulary levothyroxine or unithroid Spoke to patient who refuses to change an will continue to pay out of pocket for rx Sera Dobson Ma Allergies As of Date: 02/09/2023 Noted Allergy Reaction BACTRIM (SULFAMETHOXAZOLE) 05/23/2014 4 - Hives MORPHINE SULFATE 03/30/2005 9 - Itching TEA TREE OIL 07/22/2009 2 - Rash Date Reviewed: 01/25/2023 Reviewed by: Marjorie Cui - Fully Assessed Reason for Visit: Insurance Authorization [[id number]] Cmt: [employer] thyroid Prescriptions as of 02/09/2023 - ARMCHRISTINA THYROID 60 mg tablet Take 1 tablet by mouth once daily. - FLUoxetine (PROZAC) 10 mg capsule Take 1 capsule by mouth once daily. - dextroamphetamine-amph etamine (ADDERALL) 10 mg tablet Take 0.5-1 tablets by mouth once daily for 30 days. - traZODone (DESYREL) 50 mg tablet TAKE 1 TO 2 TABLETS AT BEDTIME FOR SLEEP - mometasone (ELOCON) 0.1 % ointment Apply to affected area once daily as needed. Once daily as needed on rash - mupirocin (BACTROBAN) 2 % ointment Apply to affected area twice daily as needed (skin infection). - omega 7-zma-fhb-fish oil (FISH OIL) 100-160-1,000 mg cap Take 1 capsule by mouth. - selenium 200 mcg cap Take by mouth. - zinc sulfate (ZINC-15 ORAL) Take by mouth. - CPAP Initiate CPAP @ 6 cm of water with humidification. Mask (per patient preference) optional chin strap (if indicated) , filters, tubing, humidifier and lifetime supplies. - vitamin B complex (B COMPLEX ORAL) Take 1 tablet by mouth once daily. - L-LYSINE ORAL Take 1 capsule by mouth once daily. - cyclobenzaprine (FLEXERIL) 10 mg tablet Take 1 tablet by mouth three times daily as needed for Muscle Spasm. - Cholecalciferol, Vitamin D3, 5,000 unit cap Take 1 capsule by mouth once daily. - ascorbic acid, vitamin C, (VITAMIN C) 500 mg tablet Take 1 tablet by mouth three times daily. - PROPYLENE GLYCOL/PEG 400 (BLINK TEARS LUBRICATING) Eye Drops Use 1 Drop in both eyes four times daily. - Aspirin 81 mg Tab Take 4 tablets by mouth one time only for 1 dose. Facility-Administered Medications as of 02/09/2023 - perflutren lipid microspheres 1.3 mL in NaCl (PF) 0.9% 10 mL injection (DEFINITY) - sodium chloride 0.9 % (flush) 10 mL (BD POSIFLUSH) Meds Comments as of 08/09/2021: .rxe Problem List As Of Date 02/09/2023 Noted Resolved DEPRESSIVE DISORDER NEC [F32.89] 09/27/2006 09/19/2008 SPRAIN OF NECK [S13.9XXA] 10/11/2006 06/28/2007 CERVICALGIA [M54.2] 11/13/2006 06/28/2007 ANXIETY STATE NOS [F41.1] 12/12/2006 09/19/2008 Asymptomatic varicose veins [I83.90] Adjustment disorder with mixed anxiety and depr*09/19/2008 11/30/2015 Dyslipidemia [E78.5] 11/08/2010 Chronic low back pain [M54.50, G89.29] 11/08/2010 Degenerative joint disease [M19.90] 11/08/2010 Metatarsalgia [M77.40] 09/02/2011 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] 09/02/2011 Other hammer toe (acquired) [M20.40] 09/02/2011 Hallux valgus (acquired) [M20.10] 09/02/2011 Traumatic tear of right rotator cuff [S46.011A] 05/03/2012 11/11/2013 Rotator cuff (capsule) sprain [S43.429A] 05/23/2012 11/11/2013 Insomnia [G47.00] 12/27/2012 Anxiety [F41.9] 12/27/2012 Depression [F32.A] 02/08/2013 Vitamin D deficiency [E55.9] 10/30/2013 Pain in joint, shoulder region [M25.519] 11/04/2013 11/30/2015 HERNAN (obstructive sleep apnea) [G47.33] 05/23/2014 Excessive daytime sleepiness [G47.19] 05/23/2014 Hypothyroidism [E03.9] 10/27/2014 Atypical nevus of shoulder [D22.60] 09/16/2015 Atypical nevus of back [D22.5] 09/16/2015 Vitreous floaters of both eyes [H43.393] 02/23/2016 Dry eye syndrome [H04.129] 02/23/2016 Encounter for screening mammogram for malignant*03/31/2016 Acute bilateral low back pain with right-sided *11/01/2016 Somatic dysfunction of pelvic region [M99.05] 11/01/2016 Somatic dysfunction of lumbar region [M99.03] 11/01/2016 Acute back pain with sciatica [M54.40] 12/05/2016 Situational stress [F43.9] 02/28/2017 Fatigue [R53.83] 02/28/2017 Concentration deficit [R41.840] 02/28/2017 Mood disorder (HCC) [F39] 02/28/2017 Neural foraminal stenosis of lumbar spine [M48.*07/17/2017 Intervertebral disc disorder with radiculopathy*07/18/19 DDD (degenerative disc disease), lumbar [M51.36]07/17/2017 Hypothyroidism, acquired [E03.9] 07/25/2018 Well adult exam [Z00.00] 07/25/2018 Vertebral artery stenosis, bilateral [I65.03] 10/30/2018 Stroke due to occlusion of ri (more content not included)... Normal [facility] CNPZainab 01-26-2023 CNPN Telephone (UCWSTR) HENRY OLIVEIRA ([id number]) 1955 F Date Time Provider Department 01/26/23 [facility] CARDENAS [facility] During your visit today, we recorded the following information about you: Kelsea VallecilloZIA 01/26/2023 8:35 AM Signed ----- Message from Lida Cardenas APRN.ARA sent at 01/26/2023 7:21 AM EDT ----- Please advise patient: You tested positive for COVID-19. Follow the CDC guidelines for isolation: 1. Everyone, regardless of vaccination status, should stay home for 5 days. 2. If you have no symptoms or your symptoms are resolving after 5 days, you can leave your house. 3. Continue to wear a mask around others for 5 additional days. If you have a fever, continue to stay home until your fever resolves, even if it is longer than 5 days. Please monitor your symptoms, and for any worrisome symptoms, call your primary care provider or schedule a visit with [facility]. A test is not recommended to return to work/school when meeting the above criteria. Lida Cardenas APRN.Xochilt Mott LPN 01/26/2023 8:42 AM Signed Left message for patient to return call. VITA Smith Melissa 01/26/2023 4:38 PM Signed Patient given results and verbalized understanding of instructions given. Marjorie Cui Allergies As of Date: 01/26/2023 Noted Allergy Reaction BACTRIM (SULFAMETHOXAZOLE) 05/23/2014 4 - Hives MORPHINE SULFATE 03/30/2005 9 - Itching TEA TREE OIL 07/22/2009 2 - Rash Date Reviewed: 01/25/2023 Reviewed by: Marjorie Cui - Fully Assessed Reason for Visit: Results [95] Prescriptions as of 01/26/2023 - dextroamphetamine-amph etamine (ADDERALL) 10 mg tablet Take 0.5-1 tablets by mouth once daily for 30 days. - traZODone (DESYREL) 50 mg tablet TAKE 1 TO 2 TABLETS AT BEDTIME FOR SLEEP - FLUoxetine (PROZAC) 10 mg capsule Take 1 capsule by mouth once daily. - mometasone (ELOCON) 0.1 % ointment Apply to affected area once daily as needed. Once daily as needed on rash - mupirocin (BACTROBAN) 2 % ointment Apply to affected area twice daily as needed (skin infection). - ARMOUR THYROID 60 mg tablet Take 1 tablet by mouth once daily. - omega 3-mdt-pww-fish oil (FISH OIL) 100-160-1,000 mg cap Take 1 capsule by mouth. - selenium 200 mcg cap Take by mouth. - zinc sulfate (ZINC-15 ORAL) Take by mouth. - CPAP Initiate CPAP @ 6 cm of water with humidification. Mask (per patient preference) optional chin strap (if indicated) , filters, tubing, humidifier and lifetime supplies. - vitamin B complex (B COMPLEX ORAL) Take 1 tablet by mouth once daily. - L-LYSINE ORAL Take 1 capsule by mouth once daily. - cyclobenzaprine (FLEXERIL) 10 mg tablet Take 1 tablet by mouth three times daily as needed for Muscle Spasm. - Cholecalciferol, Vitamin D3, 5,000 unit cap Take 1 capsule by mouth once daily. - ascorbic acid, vitamin C, (VITAMIN C) 500 mg tablet Take 1 tablet by mouth three times daily. - PROPYLENE GLYCOL/PEG 400 (BLINK TEARS LUBRICATING) Eye Drops Use 1 Drop in both eyes four times daily. - Aspirin 81 mg Tab Take 4 tablets by mouth one time only for 1 dose. Facility-Administered Medications as of 01/26/2023 - perflutren lipid microspheres 1.3 mL in NaCl (PF) 0.9% 10 mL injection (DEFINITY) - sodium chloride 0.9 % (flush) 10 mL (BD POSIFLUSH) Meds Comments as of 08/09/2021: .rxe Problem List As Of Date 01/26/2023 Noted Resolved DEPRESSIVE DISORDER NEC [F32.89] 09/27/2006 09/19/2008 SPRAIN OF NECK [S13.9XXA] 10/11/2006 06/28/2007 CERVICALGIA [M54.2] 11/13/2006 06/28/2007 ANXIETY STATE NOS [F41.1] 12/12/2006 09/19/2008 Asymptomatic varicose veins [I83.90] Adjustment disorder with mixed anxiety and depr*09/19/2008 11/30/2015 Dyslipidemia [E78.5] 11/08/2010 Chronic low back pain [M54.50, G89.29] 11/08/2010 Degenerative joint disease [M19.90] 11/08/2010 Metatarsalgia [M77.40] 09/02/2011 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] 09/02/2011 Other hammer toe (acquired) [M20.40] 09/02/2011 Hallux valgus (acquired) [M20.10] 09/02/2011 Traumatic tear of right rotator cuff [S46.011A] 05/03/2012 11/11/2013 Rotator cuff (capsule) sprain [S43.429A] 05/23/2012 11/11/2013 Insomnia [G47.00] 12/27/2012 Anxiety [F41.9] 12/27/2012 Depression [F32.A] 02/08/2013 Vitamin D deficiency [E55.9] 10/30/2013 Pain in joint, shoulder region [M25.519] 11/04/2013 11/30/2015 HERNAN (obstructive sleep apnea) [G47.33] 05/23/2014 Excessive daytime sleepiness [G47.19] 05/23/2014 Hypothyroidism [E03.9] 10/27/2014 Atypical nevus of shoulder [D22.60] 09/16/2015 Atypical nevus of back [D22.5] 09/16/2015 Vitreous floaters of both eyes [H43.393] 02/23/2016 Dry eye syndrome [H04.129] 02/23/2016 Encounter for screening mammogram for malignant*03/31/2016 Acute bilateral low back pain with right-sided *11/01/2016 Somatic dysfunction of pelvic region [M99.0 (more content not included)... Normal [facility] Influenza virus A and B RNA and SARS-CoV-2 (COVID-19) N gene panel TAYLER+probe (Resp)on 01-26-2023 FLUAV RNA TAYLER+probe Ql (Unsp spec) Not detected Not Detected [facility] FLUBV RNA TAYLER+probe Ql (Unsp spec) Not detected Not Detected [facility] SARS-CoV-2 (COVID-19) RNA TAYLER+probe Ql (Resp) Detected Abnormal See comment [facility] CNOVon 01-25-2023 CNOV Office Visit (UCWSTR ) HENRY OLIVEIRA ([id number]) 1955 F Date Time Provider Department 01/25/23 3:30 PM CHRIS RENDON [facility] During your visit today, we recorded the following information about you: Temperature Pulse Respiration Blood pressure 98.8 degrees 58/minute 16/minute 120/80 Weight 56.2 kg Chris Rendon MD 01/25/2023 3:56 PM Signed Patient presents with: Sore Throat: head congestion x 4 days HPI: Feeling sick for 5 days. Positive symptoms: sore throat, Fever, Chills, Malaise, Fatigue, Headache, Nausea, some Cough, Sinus pressure, Nasal Congestion, Rhinorrhea, Negative symptoms: Vomiting, Diarrhea, OTC: Mucinex, Cold Medicine, Tylenol MEDICATIONS: Current Outpatient Medications Medication Sig dextroamphetamine-amph etamine (ADDERALL) 10 mg tablet Take 0.5-1 tablets by mouth once daily for 30 days. traZODone (DESYREL) 50 mg tablet TAKE 1 TO 2 TABLETS AT BEDTIME FOR SLEEP FLUoxetine (PROZAC) 10 mg capsule Take 1 capsule by mouth once daily. mometasone (ELOCON) 0.1 % ointment Apply to affected area once daily as needed. Once daily as needed on rash mupirocin (BACTROBAN) 2 % ointment Apply to affected area twice daily as needed (skin infection). ARMOUR THYROID 60 mg tablet Take 1 tablet by mouth once daily. omega 2-qst-aar-fish oil (FISH OIL) 100-160-1,000 mg cap Take 1 capsule by mouth. selenium 200 mcg cap Take by mouth. zinc sulfate (ZINC-15 ORAL) Take by mouth. CPAP Initiate CPAP @ 6 cm of water with humidification. Mask (per patient preference) optional chin strap (if indicated) , filters, tubing, humidifier and lifetime supplies. vitamin B complex (B COMPLEX ORAL) Take 1 tablet by mouth once daily. L-LYSINE ORAL Take 1 capsule by mouth once daily. cyclobenzaprine (FLEXERIL) 10 mg tablet Take 1 tablet by mouth three times daily as needed for Muscle Spasm. Cholecalciferol, Vitamin D3, 5,000 unit cap Take 1 capsule by mouth once daily. ascorbic acid, vitamin C, (VITAMIN C) 500 mg tablet Take 1 tablet by mouth three times daily. PROPYLENE GLYCOL/PEG 400 (BLINK TEARS LUBRICATING) Eye Drops Use 1 Drop in both eyes four times daily. Aspirin 81 mg Tab Take 4 tablets by mouth one time only for 1 dose. Current Facility-Administered Medications Medication Dose Route Frequency perflutren lipid microspheres 1.3 mL in NaCl (PF) 0.9% 10 mL injection (DEFINITY) INTRAVENOUS DIRECTED PRN sodium chloride 0.9 % (flush) 10 mL (BD POSIFLUSH) 10 mL INTRAVENOUS DIRECTED PRN ALLERGIES: ALLERGIES Allergen Reactions Bactrim [Sulfametho* Hives Morphine Sulfate Itching Tea Tree Oil Rash VITALS: BP 120/80 Pulse (!) 58 Temp 37.1 ?C (98.8 ?F) Resp 16 Wt 56.2 kg (124 lb) LMP 10/13/2006 SpO2 98% BMI 21.83 kg/m? PHYSICAL EXAM: GEN: mildly ill appearing HEENT: PERRL, EOMI, conjunctiva clear Ears: canals clear. TMs without erythema, bulge, or effusion Sinuses: non-tender frontal sinus, non-tender maxillary sinuses Throat: moist mucous membranes, mild erythema, no exudate Neck: supple, no thyromegaly, no lymphadenopathy HEART: regular rate and rhythm, no murmurs LUNGS: clear to auscultation, no wheezes or crackles, no increased WOB ASSESSMENT/PLAN: 1. Sore throat - ICD9: 462, ICD10: J02.9 (primary diagnosis) 2. Influenza-like illness - ICD9: 487.1, ICD10: J11.1 - STREP A MOLECULAR (POC) - negative - suspect viral URI, differential includes COVID-19. - Discussed supportive care treatment with home isolation, rest, cold medicine, and analgesia. - Red flags to seek further treatment include chest pain, shortness of breath, and lethargy; in the ER if severe. - COVID AND INFLUENZA A/B NAAT, ROUTINE Chris Rendon MD Allergies As of Date: 01/25/2023 Noted Allergy Reaction BACTRIM (SULFAMETHOXAZOLE) 05/23/2014 4 - Hives MORPHINE SULFATE 03/30/2005 9 - Itching TEA TREE OIL 07/22/2009 2 - Rash Date Reviewed: 01/25/2023 Reviewed by: Marjorie Cui - Fully Assessed Reason for Visit: Sore Throat [200] Cmt: head congestion x 4 days Primary Visit Diagnosis:Sore throat [J02.9] Other Visit Diagnosis:Influenza-li ke illness [J11.1] Order(s):STREP A MOLECULAR (POC) [[id number]] Order #: [id number]. #:[id number] COVID AND INFLUENZA A/B NAAT, ROUTINE [SQCOVFLU] Order #: [id number]. #:[id number] Prescriptions as of 01/25/2023 - dextroamphetamine-amph etamine (ADDERALL) 10 mg tablet Take 0.5-1 tablets by mouth once daily for 30 days. - traZODone (DESYREL) 50 mg tablet TAKE 1 TO 2 TABLETS AT BEDTIME FOR SLEEP - FLUoxetine (PROZAC) 10 mg capsule Take 1 capsule by mouth once daily. - mometasone (ELOCON) 0.1 % ointment Apply to affected area once daily as needed. Once daily as needed on rash - mupirocin (BACTROBAN) 2 % ointment Apply to affected area twice daily as needed (skin infection). - ARMOUR THYROID (more content not included)... Normal [facility] FLUABV + SARS-CoV-2 Pnl Resp TAYLER+prbon 01-25-2023 Influenza virus A and B RNA and SARS-CoV-2 (COVID-19) N gene panel TAYLER+probe (Resp) COVID 19 RESULT: Detected The method used is RT-PCR or an equivalent NAAT method. Reference Range (the expected result in uninfected individuals): Not detected INFLUENZA A PCR: Not detected INFLUENZA B PCR: Not detected Abnormal [facility] Comment on above: Performed By: #### 2 4323-8, [id number], 2276-4, 2284-8 #### [facility] CLIA [id number] [address] [place] [address] [place] STREP A MOLECULAR (POC)on Procedural Control Valid [facility] Strep A (POCT) Negative Negative [facility] CNOVon 12-26-2022 CNOV Office Visit (FAMPWS ) HENRY OLIVEIRA ([id number]) 1955 F Date Time Provider Department 12/26/22 8:00 AM [facility] During your visit today, we recorded the following information about you: Pulse Respiration Blood pressure Weight 67/minute 16/minute 110/60 55.8 kg Alivia Leyva PA-C 12/26/2022 9:17 AM Signed 67 year old female with c/o here for follow up on fluoxetine. F/U on medication start: fluoxetine 10 mg daily Feeling better, can tell medication is making a difference. Less anxious. Sleeping with trazodone, not waking as often. Talked with daughter about her feelings, daughter shut down the conversation by saying she was traumatized by the stroke event. Tawana felt she was again in a hopeless situation Went to counselor who has also counseled her daughter and ex-, and advised to understand they are unlikely to be sympathetic or change. Feels today that she will just have to accept the relationship Found someone she liked dated for a few months, and he stopped. Discussed relationship and details regarding his friend, and also with his ex- and daughter. He called later and apologized but also stated he need to take time to work on his own issues. HISTORIES FAMILY HISTORY Problem Relation Age of Onset Cancer Father LUNG Hypertension Mother Cataract Mother Heart Maternal Grandfather Cancer Maternal Aunt BLADDER Cancer Maternal Uncle KIDNEY Diabetes Maternal Uncle Diabetes Maternal Aunt other (HODGKINS) Sister Lung Cancer Breast Cancer Maternal Aunt Hyperlipidemia Son Hypertension Son PAST MEDICAL HISTORY Diagnosis Date Abnormal glandular Papanicolaou smear of cervix Abn. Pap smear (cervix) Asymptomatic varicose veins Depressive disorder, not elsewhere classified 09/27/2006 Hearing decreased Hyperlipidemia Hypothyroidism 2010 HERNAN on CPAP [facility] Peripheral vascular disease, unspecified (HCC) varicose veins Sleep apnea CPAP Supraspinatus tendon tear 04/03/2012 right shoulder Vitamin B12 deficiency Vitamin D deficiency 10/30/2013 PAST SURGICAL HISTORY Procedure Laterality Date COLPOSCOPY CERVIX UPPER/ADJACENT VAGINA Colposcopy CORRECT BUNION,SIMPLE 01-31-12 Bunion, left DILATION AND CURETTAGE DXAND/THER NONOBSTETRIC 1980s Dilation AND curettage LIG/TRNSXJ FLP TUBE ABDL/VAG APPR UNI/BI COMPLETE Tubal ligation PAST SURGICAL HISTORY OF 11/2003 breast biopsy right, benign PAST SURGICAL HISTORY OF 1997 wrist surgery - after fracture, right PAST SURGICAL HISTORY OF 06/28/13 arthroscopy with open rotator cuff repair Social History Tobacco Use Smoking status: Former Packs/day: 1.00 Years: 15.00 Additional pack years: 0.00 Total pack years: 15.00 Types: Cigarettes Quit date: 02/12/1987 Years since quittin.8 Smokeless tobacco: Never Vaping Use Vaping Use: Never used Substance Use Topics Alcohol use: No Drug use: No ACTIVE PROBLEM LIST Asymptomatic Varicose Veins Dyslipidemia Chronic Low Back Pain Degenerative Joint Disease Metatarsalgia Metatarsus Primus Varus Other Hammer Toe (Acquired) Hallux Valgus (Acquired) Insomnia Anxiety Depression Vitamin D Deficiency Hernan (Obstructive Sleep Apnea) Excessive Daytime Sleepiness Hypothyroidism Atypical Nevus of Shoulder Atypical Nevus of Back Vitreous Floaters of Both Eyes Dry Eye Syndrome Encounter for Screening Mammogram for Malignant Neoplasm of Breast Acute Bilateral Low Back Pain With Right-Sided Sciatica Somatic Dysfunction of Pelvic Region Somatic Dysfunction of Lumbar Region Acute Back Pain With Sciatica Situational Stress Fatigue Concentration 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 Ddd (Degenerative Disc Disease), Lumbar Hypothyroidism, Acquired Well Adult Exam Vertebral Artery Stenosis, 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 90 capsule 1 dextroamphetamine-amph etamine (ADDERALL) 10 mg tablet Take 0.5-1 tablets by mouth once daily for 30 days. 30 tablet 0 mometasone (ELOCON) 0.1 % ointment Apply to affected area once daily as needed. Once daily as needed on rash 15 (more content not included)... Normal [facility] CNOVon 11-25-2022 CNOV Office Visit (FAMPWS ) HENRY OLIVEIRA ([id number]) 1955 F Date Time Provider Department 11/25/22 2:00 PM [facility] During your visit today, we recorded the following information about you: Pulse Respiration Blood pressure Weight 87/minute 16/minute 116/68 57.6 kg M Thien Leyva PA-C 11/25/2022 5:53 PM Signed 67 year old female with c/o insomnia over last three weeks. Doesn't seem to matter when she goes to bed, seems to wake 2-3h and then can't go back to sleep. Drinks chamomile tea and water in the evening. Has trazodone 50 mg and has taken doses from 25 to 75 mg but states when she gets higher doses causes hangover in the morning which she does not like. Stopped fluoxetine a year ago because she felt she was stable and can go without. Notes that she has been steadily more melancholy and irritable. Much of this surrounds relationship with her daughter who seems to be more open to her father and his new , vacationing together, allowing her granddaughter to stay overnight with them but not with her. Feels the daughter hasn't forgiven for divorce, loveless marriage. She is grandmother who babysits . Due to her history of stroke, daughter does not want her to take her granddaughter anywhere that she would have to drive. She had no driving restrictions, nor has any specialist been concerned about her ability. She knows her daughter loves her but does not feel she has been able to talk about these issues openly. Identifies a sense of feeling trapped. No thoughts of self injury. Continues to work at [employer], job that she enjoys related to the social environment. Feels content at home and in no particular need. HISTORIES FAMILY HISTORY Problem Relation Age of Onset Cancer Father LUNG Hypertension Mother Cataract Mother Heart Maternal Grandfather Cancer Maternal Aunt BLADDER Cancer Maternal Uncle KIDNEY Diabetes Maternal Uncle Diabetes Maternal Aunt other (HODGKINS) Sister Lung Cancer Breast Cancer Maternal Aunt Hyperlipidemia Son Hypertension Son PAST MEDICAL HISTORY Diagnosis Date Abnormal glandular Papanicolaou smear of cervix Abn. Pap smear (cervix) Asymptomatic varicose veins Depressive disorder, not elsewhere classified 09/27/2006 Hearing decreased Hyperlipidemia Hypothyroidism 2010 HERNAN on CPAP [facility] Peripheral vascular disease, unspecified (HCC) varicose veins Sleep apnea CPAP Supraspinatus tendon tear 04/03/2012 right shoulder Vitamin B12 deficiency Vitamin D deficiency 10/30/2013 PAST SURGICAL HISTORY Procedure Laterality Date COLPOSCOPY CERVIX UPPER/ADJACENT VAGINA Colposcopy CORRECT BUNION,SIMPLE 01-31-12 Bunion, left DILATION AND CURETTAGE DXAND/THER NONOBSTETRIC 1980s Dilation AND curettage LIG/TRNSXJ FLP TUBE ABDL/VAG APPR UNI/BI COMPLETE Tubal ligation PAST SURGICAL HISTORY OF 11/2003 breast biopsy right, benign PAST SURGICAL HISTORY OF 1997 wrist surgery - after fracture, right PAST SURGICAL HISTORY OF 06/28/13 arthroscopy with open rotator cuff repair Social History Tobacco Use Smoking status: Former Packs/day: 1.00 Years: 15.00 Total pack years: 15.00 Types: Cigarettes Quit date: 02/12/1987 Years since quittin.8 Smokeless tobacco: Never Vaping Use Vaping Use: Never used Substance Use Topics Alcohol use: No Drug use: No ACTIVE PROBLEM LIST Asymptomatic Varicose Veins Dyslipidemia Chronic Low Back Pain Degenerative Joint Disease Metatarsalgia Metatarsus Primus Varus Other Hammer Toe (Acquired) Hallux Valgus (Acquired) Insomnia Anxiety Depression Vitamin D Deficiency Hernan (Obstructive Sleep Apnea) Excessive Daytime Sleepiness Hypothyroidism Atypical Nevus of Shoulder Atypical Nevus of Back Vitreous Floaters of Both Eyes Dry Eye Syndrome Encounter for Screening Mammogram for Malignant Neoplasm of Breast Acute Bilateral Low Back Pain With Right-Sided Sciatica Somatic Dysfunction of Pelvic Region Somatic Dysfunction of Lumbar Region Acute Back Pain With Sciatica Situational Stress Fatigue Concentration 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 Ddd (Degenerative Disc Disease), Lumbar Hypothyroidism, Acquired Well Adult Exam Vertebral Artery Stenosis, 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 (Hcc) Situational Insomnia Anxiety With Depression Attention Deficit Disorder (Add) Without Hyperactivity Left Wrist Pain Vitamin B12 Deficiency Hyperglycemia Exposure to Mercury Foot Pain, Right Acquired Deformity of Right Foot Double Vision Age-Related Cataract of Both Eyes Occlusion and Stenosis of Right Vertebral Artery Hx of Ischemic Vertebrobasilar Artery Cerebellar Stroke Sob (Shortness of (more content not included)... Normal [facility] CNOVon 10-19-2022 CNOV Office Visit (FAMPWS ) TEEHENRY J ([id number]) 1955 F Date Time Provider Department 10/19/22 8:40 AM [facility]IN [facility]AS [facility] During your visit today, we recorded the following information about you: Temperature Pulse Respiration Blood pressure 98.2 degrees 64/minute 16/minute 130/74 Weight 58.5 kg Shin Arias DO 10/19/2022 11:09 AM Signed CC: Henry Oliveira is a 67 year old female who presents to the office for follow up HPI: Seen in office 2 weeks ago as below Rash on right hand and skin changes around left great toe, using Mometasone ointment with benefit. Had this ointment at home. Wasn't getting better with triamcinolone cream given. 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 Hx of stroke and is watching her 4 year old and 18 month old granddaughters 2 days a week and enjoying this. No new neurologic symptoms Hair is thinning, + fatigue, taking her armour thyroid supplement for hypothyroidism, thinning hair mostly in front, mother did have alopecia and thinning early in her life as well. Hyperlipidemia, diet controlled, refuses statin therapy Currently History of stroke 4 years ago, no new neurologic symptoms. Still able to drive without difficulty. Sometimes with low back pain/aching that comes and goes with prolonged standing or walking. 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 Did have some b/l foot soreness and low back pain at work and end of the day, better with rest. No injuries. Bunions b/l feet and hammer toe 2nd toe left foot, has been seen by Podiatry, doesn't want to have surgery if doesn't have to Fatigue, stable, is taking supplements for B complex and vitamin D and trying to eat healthy diet. Mood, still sometimes very frustrated with her daughter and her lack of wanting to be in her life, still watching her 2 granddaughters several days a week and enjoying this although makes her feel tired afterwards. No SI or HI. Doesn't want to start new medication for mood. Hypothyroidism, taking armour thyroid supplement, feels stable TSH Date Value Ref Range Status 10/14/2022 1.130 0.270 - 4.200 mIU/L Final Free T4 Date Value Ref Range Status 10/14/2022 1.2 0.9 - 1.7 ng/dL Final Free T3 5.2 10/14/2022 HPL, trying to cut out sugar from her diet, has made drastic dietary changes, doesn't want to start statin therapy Cholesterol, Total Date Value Ref Range Status 10/14/2022 200 (H) <200 mg/dL Final Comment: <200 mg/dL, Desirable 200-239 mg/dL, Borderline high >239 mg/dL, High HDL Cholesterol Date Value Ref Range Status 10/14/2022 71 >39 mg/dL Final Comment: 40-59 mg/dL, Acceptable >59 mg/dL, High: Negative risk factor for coronary heart disease <40 mg/dL, Low: Positive risk factor for coronary heart disease LDL Cholesterol Date Value Ref Range Status 10/14/2022 121 (H) <100 mg/dL Final Comment: <100 mg/dL, Optimal 100-129 mg/dL, Near optimal/above optimal 130-159 mg/dL, Borderline high 160-189 mg/dL, High >189 mg/dL, Very high Secondary prevention optimal LDL Cholesterol levels are recommended to be < 70 mg/dL Triglyceride Date Value Ref Range Status 10/14/2022 38 <150 mg/dL Final Comment: <150 mg/dL, Normal 150-199 mg/dL, Borderline high 200-499 mg/dL, High >499 mg/dL, Very high Glucose (mg/dL) Date Value 10/14/2022 83 06/30/2021 88 Potassium (mmol/L) Date Value 10/14/2022 3.9 06/30/2021 4.8 Sodium (mmol/L) Date Value 10/14/2022 143 06/30/2021 139 Chloride (mmol/L) Date Value 10/14/2022 106 06/30/2021 103 CO2 (mmol/L) Date Value 10/14/2022 25 06/30/2021 29 Creatinine (mg/dL) Date Value 10/14/2022 0.56 06/30/2021 0.57 BUN (mg/dL) Date Value 10/14/2022 9 06/30/2021 13 Anion Gap (mmol/L) Date Value 10/14/2022 12 06/30/2021 7 Calcium (mg/dL) Date Value 06/30/2021 9.6 Calcium, Total (mg/dL) Date Value 10/14/2022 9.7 Protein, Total (g/dL) Date Value 10/14/2022 6.6 06/30/2021 7.0 Albumin (g/dL) Date Value 10/14/2022 4.5 06/30/2021 4.4 Bilirubin, Total (mg/dL) Date Value 10/14/2022 0.5 06/30/2021 0.4 Alkaline Phosphatase (U/L) Date Value 10/14/2022 104 06/30/2021 106 AST (U/L) Date Value 10/14/2022 20 06/30/2021 23 ALT (U/L) Date Value 10/14/2022 14 06/30/2021 16 Hemoglobin (g/dL) Date Value 10/14/2022 13.9 06/30/2021 13.8 Hematocrit (%) Date Value 10/14/2022 42.5 06/30/2021 42.5 WBC (k/uL) Date Value 10/14/2022 5.09 06/30/2021 5.11 PAST MEDICAL HISTORY Diagnosis Date Abnormal glandular Papanicolaou smear of cervix Abn. Pap smear (cervix) Asymptomatic varicose veins Depressive disorder, not elsewhere classified 09/27/2006 Hearing decreased Hyperlipidemia Hypothyroidism 2010 HERNAN on CPAP JUSTIN Oleary (more content not included)... Normal [facility] CBC W Auto Differential pane l (Bld)on 10-14-2022 Basophils (Bld) [#/Vol] 0.05 10*3/uL Normal <0.11 [facility] Comment on above: Order Comment: Speci men Type: BLOOD SPECIMEN Ordering Facility: [facility] Address: [address] [address] Performed By: #### 5 7021-8 #### [facility] CLIA [id number] [address] [place] [address] [place] Basophils/100 WBC (Bld) 1.0 % Normal [facility] Comment on above: Order Comment: Speci men Type: BLOOD SPECIMEN Ordering Facility: [facility] Address: [address] [place] [address] Performed By: #### 5 7021-8 #### [facility] CLIA [id number] [address] [place] [address] [place] Differential cell count method Nom (Bld) Auto Normal [facility] Comment on above: Order Comment: Speci men Type: BLOOD SPECIMEN Ordering Facility: [facility] Address: [address] [place], [place] [address] Performed By: #### 5 7021-8 #### [facility] CLIA [id number] [address] [place] [address] [place] Eosinophils (Bld) [#/Vol] 0.12 10*3/uL Normal <0.46 [facility] Comment on above: Order Comment: Speci men Type: BLOOD SPECIMEN Ordering Facility: [facility] Address: [address] [place] [address] Performed By: #### 5 7021-8 #### [facility] CLIA [id number] [address] [place] [address] [place] Eosinophils/100 WBC (Bld) 2.4 % Normal [facility] Comment on above: Order Comment: Speci men Type: BLOOD SPECIMEN Ordering Facility: [facility] Address: [address] [place] [address] Performed By: #### 5 7021-8 #### [facility] CLIA [id number] [address] [place] [address] [place] Erythrocyte distribution width (RBC) [Ratio] 12.4 % Normal 11.5-15.0 [facility] Comment on above: Order Comment: Speci men Type: BLOOD SPECIMEN Ordering Facility: [facility] Address: [address] [place] [address] Performed By: #### 5 7021-8 #### [facility] CLIA [id number] [address] [place] [address] [place] Hematocrit (Bld) [Volume fraction] 42.5 % Normal 36.0-46.0 [facility] Comment on above: Order Comment: Speci men Type: BLOOD SPECIMEN Ordering Facility: [facility] Address: [address] [place], [place] [address] Performed By: #### 5 7021-8 #### [facility] CLIA [id number] [address] [place] [address] [place] Hemoglobin (Bld) [Mass/Vol] 13.9 g/dL Normal 11.5-15.5 [facility] Comment on above: Order Comment: Speci men Type: BLOOD SPECIMEN Ordering Facility: [facility] Address: [address] [place], [place] [address] Performed By: #### 5 7021-8 #### [facility] CLIA [id number] [address] [place] [address] [place] Immature granulocytes (Bld) [#/Vol] 10*3/uL Normal <0.10 [facility] Comment on above: Order Comment: Speci men Type: BLOOD SPECIMEN Ordering Facility: [facility] Address: [address] Performed By: #### 5 7021-8 #### [facility] CLIA [id number] [address] [place] [address] [place] Immature granulocytes/100 WBC (Bld) 0.2 % Normal [facility] Comment on above: Order Comment: Speci men Type: BLOOD SPECIMEN Ordering Facility: [facility] Address: [address] Performed By: #### 5 7021-8 #### [facility] CLIA [id number] [address] [place] [address] [place] Lymphocytes (Bld) [#/Vol] 1.71 10*3/uL Normal 1.00-4.00 [facility] Comment on above: Order Comment: Speci men Type: BLOOD SPECIMEN Ordering Facility: [facility] Address: [address] Performed By: #### 5 7021-8 #### [facility] CLIA [id number] [address] [place] [address] [place] Lymphocytes/100 WBC (Bld) 33.6 % Normal [facility] Comment on above: Order Comment: Speci men Type: BLOOD SPECIMEN Ordering Facility: [facility] Address: [address] Performed By: #### 5 7021-8 #### [facility] CLIA [id number] [address] [place] [address] [place] MCH (RBC) [Entitic mass] 30.2 pg Normal 26.0-34.0 [facility] Comment on above: Order Comment: Speci men Type: BLOOD SPECIMEN Ordering Facility: [facility] Address: [address] Performed By: #### 5 7021-8 #### [facility] CLIA [id number] [address] [place] [address] [place] MCHC (RBC) [Mass/Vol] 32.7 g/dL Normal 30.5-36.0 [facility] Comment on above: Order Comment: Speci men Type: BLOOD SPECIMEN Ordering Facility: [facility] Address: [address] [address] Performed By: #### 5 7021-8 #### [facility] CLIA [id number] [address] [place] [address] [place] MCV (RBC) [Entitic vol] 92.2 fL Normal 80.0-100.0 [facility] Comment on above: Order Comment: Speci men Type: BLOOD SPECIMEN Ordering Facility: [facility] Address: [address] [place] [address] Performed By: #### 5 7021-8 #### [facility] CLIA [id number] [address] [place] [address] [place] Monocytes (Bld) [#/Vol] 0.40 10*3/uL Normal <0.87 [facility] Comment on above: Order Comment: Speci men Type: BLOOD SPECIMEN Ordering Facility: [facility] Address: [address] [place], [place] [address] Performed By: #### 5 7021-8 #### [facility] CLIA [id number] [address] [place] [address] [place] Monocytes/100 WBC (Bld) 7.9 % Normal [facility] Comment on above: Order Comment: Speci men Type: BLOOD SPECIMEN Ordering Facility: [facility] Address: [address] [place] [address] Performed By: #### 5 7021-8 #### [facility] CLIA [id number] [address] [place] [address] [place] Neutrophils (Bld) [#/Vol] 2.80 10*3/uL Normal 1.45-7.50 [facility] Comment on above: Order Comment: Speci men Type: BLOOD SPECIMEN Ordering Facility: [facility] Address: [address] Performed By: #### 5 7021-8 #### [facility] CLIA [id number] [address] [place] [address] [place] Neutrophils/100 WBC (Bld) 54.9 % Normal [facility] Comment on above: Order Comment: Speci men Type: BLOOD SPECIMEN Ordering Facility: [facility] Address: [address] Performed By: #### 5 7021-8 #### [facility] CLIA [id number] [address] [place] [address] [place] Nucleated RBC (Bld) [#/Vol] 10*3/uL Normal <0.01 [facility] Comment on above: Order Comment: Speci men Type: BLOOD SPECIMEN Ordering Facility: [facility] Address: [address] Performed By: #### 5 7021-8 #### [facility] CLIA [id number] [address] [place] [address] [place] Nucleated RBC/100 WBC (Bld) [Ratio] 0.0 /100 WBC Normal [facility] Comment on above: Order Comment: Speci men Type: BLOOD SPECIMEN Ordering Facility: [facility] Address: [address] Performed By: #### 5 7021-8 #### [facility] CLIA [id number] [address] [place] [address] [place] Platelet mean volume (Bld) [Entitic vol] 11.1 fL Normal 9.0-12.7 [facility] Comment on above: Order Comment: Speci men Type: BLOOD SPECIMEN Ordering Facility: [facility] Address: [address] [place] [address] Performed By: #### 5 7021-8 #### [facility] CLIA [id number] [address] [place] [address] [place] Platelets (Bld) [#/Vol] 214 10*3/uL Normal 150-400 [facility] Comment on above: Order Comment: Speci men Type: BLOOD SPECIMEN Ordering Facility: [facility] Address: [address] Performed By: #### 5 7021-8 #### [facility] CLIA [id number] [address] OF [facility] RBC (Bld) [#/Vol] 4.61 10*6/uL Normal 3.90-5.20 [facility] Comment on above: Order Comment: Speci men Type: BLOOD SPECIMEN Ordering Facility: [facility] Address: [address] Performed By: #### 5 7021-8 #### [facility] CLIA [id number] [address] [place] [address] [place] WBC (Bld) [#/Vol] 5.09 10*3/uL Normal 3.70-11.00 [facility] Comment on above: Order Comment: Speci men Type: BLOOD SPECIMEN Ordering Facility: [facility] Address: [address] Performed By: #### 5 7021-8 #### [facility] CLIA [id number] [address] [place] [address] [place] Comprehensive metabolic 2000 panelon 10-14-2022 Albumin [Mass/Vol] 4.5 g/dL Normal 3.9-4.9 [facility] Comment on above: Order Comment: Speci men Type: BLOOD SPECIMEN Ordering Facility: [facility] Address: [address] [place], [place] [address] Performed By: #### 2 4323-8, 85691-3, 2275-4, 8 #### [facility] CLIA [id number] [address] [place] [address] [place] ALP [Catalytic activity/Vol] 104 U/L Normal 34-123 [facility] Comment on above: Order Comment: Speci men Type: BLOOD SPECIMEN Ordering Facility: [facility] Address: [address] [place] [address] Performed By: #### 2 4323-8, 87729-8, 2275-4, 8 #### [facility] CLIA [id number] [address] [place] [address] [place] ALT [Catalytic activity/Vol] 14 U/L Normal 7-38 [facility] Comment on above: Order Comment: Speci men Type: BLOOD SPECIMEN Ordering Facility: [facility] Address: [address] [place] [address] Performed By: #### 2 4323-8, 31750-9, 2275-4, 8 #### [facility] CLIA [id number] [address] [place] [address] [place] Anion gap [Moles/Vol] 12 mmol/L Normal 9-18 [facility] Comment on above: Order Comment: Speci men Type: BLOOD SPECIMEN Ordering Facility: [facility] Address: [address] [place], [place] [address] Performed By: #### 2 4323-8, 30440-8, 2275-4, 8 #### [facility] CLIA [id number] [address] [place] [address] [place] AST [Catalytic activity/Vol] 20 U/L Normal 13-35 [facility] Comment on above: Order Comment: Speci men Type: BLOOD SPECIMEN Ordering Facility: [facility] Address: [address] [place], [place] [address] Performed By: #### 2 4323-8, 05274-7, 2275-08, 2283-12 #### [facility] CLIA [id number] [address] [place] [address] [place] Bilirubin [Mass/Vol] 0.5 mg/dL Normal 0.2-1.3 [facility] Comment on above: Order Comment: Speci men Type: BLOOD SPECIMEN Ordering Facility: [facility] Address: [address] [place] [address] Performed By: #### 2 4323-8, 04381-9, 4, 2283-12 #### [facility] CLIA [id number] [address] [place] [address] [place] Calcium [Mass/Vol] 9.7 mg/dL Normal 8.5-10.2 [facility] Comment on above: Order Comment: Speci men Type: BLOOD SPECIMEN Ordering Facility: [facility] Address: [address] [place], [place] [address] Performed By: #### 2 4323-8, 86121-2, 2275-08, 8 #### [facility] CLIA [id number] [address] [place] [address] [place] Chloride [Moles/Vol] 106 mmol/L High 97-105 [facility] Comment on above: Order Comment: Speci men Type: BLOOD SPECIMEN Ordering Facility: [facility] Address: [address] [place] [address] Performed By: #### 2 4323-8, 10508-2, 2275-08, 8 #### [facility] CLIA [id number] [address] [place], [place] [address] [place] CO2 [Moles/Vol] 25 mmol/L Normal 22-30 [facility] Comment on above: Order Comment: Speci men Type: BLOOD SPECIMEN Ordering Facility: [facility] Address: [address] [place], [place] [address] Performed By: #### 2 4323-8, 59276-4, 4, 8 #### [facility] CLIA [id number] [address] [place] Creatinine [Mass/Vol] 0.56 mg/dL Low 0.58-0.96 [facility] Comment on above: Order Comment: Ciara levine Type: BLOOD SPECIMEN Ordering Facility: [facility] Address: [address] [place] [address] Performed By: #### 2 4323-8, 81593-2, 2275-08, 8 #### [facility] CLIA [id number] [facility] [place] [address] [place] ESTIMATED GLOMERULAR FILTRATION RATE 100 mL/min/1.73m??? Normal >=60 [facility] Comment on above: Order Comment: Ciara levine Type: BLOOD SPECIMEN Ordering Facility: [facility] Address: [address] [place] [address] Result Comment: Letty mated Glomerular Filtration Rate (eGFR) is calculated using the 2020 CKD-EPI creatinine equation. This equation utilizes serum creatinine, sex, and age as parameters. The creatinine assay has traceable calibration to isotope dilution-mass spectrometry. Refer to KDIGO guidelines for clinical interpretation. In patients with unstable renal function, e.g. those with acute kidney injury, the eGFR may not accurately reflect actual GFR. Performed By: #### 2 4323-8, 40502-5, 4, 8 #### [facility] CLIA [id number] [facility] [place] [address] [place] Glucose [Mass/Vol] 83 mg/dL Normal 74-99 [facility] Comment on above: Order Comment: Alexanderi julianna Type: BLOOD SPECIMEN Ordering Facility: [facility] Address: [address] [place] [address] Result Comment: The [place] Diabetes Association (ADA) provides guidance for cutoff values for fasting glucose and random glucose. The ADA defines fasting as no caloric intake for at least 8 hours. Fasting plasma glucose results between 100 to 125 mg/dL indicate increased risk for diabetes (prediabetes). Fasting plasma glucose results greater than or equal to 126 mg/dL meet the criteria for diagnosis of diabetes. In the absence of unequivocal hyperglycemia, results should be confirmed by repeat testing. In a patient with classic symptoms of hyperglycemia or hyperglycemic crisis, random plasma glucose results greater than or equal to 200 mg/dL meet the criteria for diagnosis of diabetes. Reference: Standards of Medical Care in Diabetes 2016, [place] Diabetes Association. Diabetes Care. 2016.39(Suppl 1). Performed By: #### 2 4323-8, 44718-1, 4, 2283-12 #### [facility] CLIA [id number] [address] [place] [address] [place] Potassium [Moles/Vol] 3.9 mmol/L Normal 3.7-5.1 [facility] Comment on above: Order Comment: Ciara levine Type: BLOOD SPECIMEN Ordering Facility: [facility] Address: [address] [place] [address] Performed By: #### 2 4323-8, 24438-7, 2275-08, 2283-12 #### [facility] CLIA [id number] [address] [place] [address] [place] Protein [Mass/Vol] 6.6 g/dL Normal 6.3-8.0 [facility] Comment on above: Order Comment: Ciara levine Type: BLOOD SPECIMEN Ordering Facility: [facility] Address: [address] [place] [address] Performed By: #### 2 4323-8, 61940-4, 2275-08, 2283-12 #### [facility] CLIA [id number] [address] [place] [address] [place] Sodium [Moles/Vol] 143 mmol/L Normal 136-144 [facility] Comment on above: Order Comment: Alexanderi julianna Type: BLOOD SPECIMEN Ordering Facility: [facility] Address: [address] [place], [place] [address] Performed By: #### 2 4323-8, 96055-2, 2275-08, 8 #### [facility] CLIA [id number] [facility] [place] [address] [place] Urea nitrogen [Mass/Vol] 9 mg/dL Normal 7-21 [facility] Comment on above: Order Comment: Speci men Type: BLOOD SPECIMEN Ordering Facility: [facility] Address: [address] [place] [address] Performed By: #### 2 4323-8, 29041-4, 2275-4, 8 #### [facility] CLIA [id number] [address] [place] [address] [place] Ferritin SerPl-mCncon 2022 Ferritin [Mass/Vol] 170.0 ng/mL Normal 14.7-205.1 [facility] Comment on above: Order Comment: Speci men Type: BLOOD SPECIMEN Ordering Facility: [facility] Address: [address] [place] [address] Performed By: #### 2 4323-8, 03393-5, 4, 8 #### [facility] [place] [id number] [address] [place] [address] [place] Folate SerPl-mCncon 10-15-19 23 Folate [Mass/Vol] ng/mL Normal >4.7 [facility] Comment on above: Order Comment: Speci men Type: BLOOD SPECIMEN Ordering Facility: [facility] Address: [address] [place] [address] Result Comment: A re sult of > 20 ng/mL is not necessarily indicative of a pathologic or treatable condition: it reflects a limitation of the test methodology. Assay reference range: 4.8 to 24.2 ng/mL. Suitable for detection of folate deficiency. Reference: Folate III (Folate III) [package insert V 1.0 [place]]. [facility], [place], [place]: March 2015. Performed By: #### 2 4323-8, 66596-0, 2275-4, 2283-8 #### [facility] CLIA [id number] [address] [place] [address] [place] HbA1c (Bld)on 10-14-2022 Average glucose Estimated from glycated hemoglobin (Bld) [Mass/Vol] 100 mg/dL Normal [facility] Comment on above: Order Comment: Specshahnaz men Type: BLOOD SPECIMEN Ordering Facility: [facility] Address: [address] [place] [address] Result Comment: eAG: (Estimated average glucose) is a calculated value from HgbA1c and is student services representative of the average blood glucose level in the last 2-3 month period. Performed By: #### 2 4323-8, 36481-3, 2275-4, 8 #### [facility] [place] [id number] [address] [place] [address] OF [facility] HbA1c (Bld) [Mass fraction] 5.1 % Normal 4.3-5.6 [facility] Comment on above: Order Comment: Ciara men Type: BLOOD SPECIMEN Ordering Facility: [facility] Address: [address] [place] [address] Result Comment: [place] Diabetes Association guidelines indicate that patients with HgbA1c in the range 5.7-6.4% are at increased risk for development of diabetes, and intervention by lifestyle modification may be beneficial. HgbA1c greater or equal to 6.5% is considered diagnostic of diabetes. Performed By: #### 2 4323-8, 95100-0, 2275-4, 8 #### [facility] [place] [id number] [address] [place] [address] [place] [employer] and [employer] binding capaci ty panelon 10-14-2022 Iron [Mass/Vol] 119 ug/dL Normal 41-186 [facility] Comment on above: Order Comment: Alexanderi men Type: BLOOD SPECIMEN Ordering Facility: [facility] Address: [address] [place] [address] Performed By: #### 2 4323-8, 29478-8, 2275-4, 2284-8 #### [facility] CLIA [id number] [address] [place] [address] [place] Iron binding capacity [Mass/Vol] 277 ug/dL Normal 232-386 [facility] Comment on above: Order Comment: Speci men Type: BLOOD SPECIMEN Ordering Facility: [facility] Address: [address] [place] [address] Performed By: #### 2 4323-8, 32258-2, 2275-4, 8 #### [facility] CLIA [id number] [address] [place] [address] [place] Iron/TIBC [Molar ratio] 43.0 % Normal 15.0-57.0 [facility] Comment on above: Order Comment: Speci men Type: BLOOD SPECIMEN Ordering Facility: [facility] Address: [address] [place] [address] Performed By: #### 2 4323-8, 00209-6, 2275-4, 8 #### [facility] CLIA [id number] [address] [place] [address] [place] Lipid 1996 panelon 3 Cholesterol [Mass/Vol] 200 mg/dL High <200 [facility] Comment on above: Order Comment: Speci men Type: BLOOD SPECIMEN Ordering Facility: [facility] Address: [address] [place], [place] [address] Result Comment: <200 mg/dL, Desirable 200-239 mg/dL, Borderline high >239 mg/dL, High Performed By: #### 2 4323-8, 96340-4, 2275-4, 2283-8 #### [facility] CLIA [id number] [address] [id number] [place] Cholesterol in HDL [Mass/Vol] 71 mg/dL Normal >39 [facility] Comment on above: Order Comment: Speci men Type: BLOOD SPECIMEN Ordering Facility: [facility] Address: [address] [place] [address] Result Comment: 40-5 9 mg/dL, Acceptable >59 mg/dL, High: Negative risk factor for coronary heart disease <40 mg/dL, Low: Positive risk factor for coronary heart disease Performed By: #### 2 4323-8, 27273-4, 2275-4, 8 #### [facility] CLIA [id number] [address] [place] [address] [place] Cholesterol in LDL [Mass/Vol] 121 mg/dL High <100 [facility] Comment on above: Order Comment: Speci men Type: BLOOD SPECIMEN Ordering Facility: [facility] Address: [address] [place] [place] [address] Result Comment: <100 mg/dL, Optimal 100-129 mg/dL, Near optimal/above optimal 130-159 mg/dL, Borderline high 160-189 mg/dL, High >189 mg/dL, Very high Secondary prevention optimal LDL Cholesterol levels are recommended to be < 70 mg/dL Performed By: #### 2 4323-8, 69122-0, 2275-4, 2283-12 #### [facility] CLIA [id number] [address] [place] [address] [place] Cholesterol in LDL/Cholesterol in HDL [Mass ratio] 1.70 {ratio} Normal <2.54 [facility] Comment on above: Order Comment: Speci men Type: BLOOD SPECIMEN Ordering Facility: [facility] Address: [address] [place] [place] [address] Result Comment: Miguel pena: 1. National Cholesterol Education Program ATP III Guideline At-A-Glance Quick Desk Reference: National Heart, Lung, and Blood Harvey. National Institutes of Health. 2001: NIH Publication No. 01-3305. 2. An International Atherosclerosis Society position paper: global recommendations for the management of dyslipidemia: executive summary, Atherosclerosis. 2014: 232(2):410-413. Performed By: #### 2 4323-8, 26994-3, 2275-4, 2283-8 #### [facility] CLIA [id number] [address] [place] [address] [place] Cholesterol in VLDL [Mass/Vol] 8 mg/dL Normal <30 [facility] Comment on above: Order Comment: Speci men Type: BLOOD SPECIMEN Ordering Facility: [facility] Address: [address] [place], [place] [address] Performed By: #### 2 4323-8, 96326-5, 6-4, 2283-8 #### [facility] CLIA [id number] [address] [place] [address] [place] Cholesterol non HDL [Mass/Vol] 129 mg/dL Normal <130 [facility] Comment on above: Order Comment: Speci men Type: BLOOD SPECIMEN Ordering Facility: [facility] Address: [address] [place] [address] Result Comment: <130 mg/dL, Optimal 130-159 mg/dL, Near optimal/above optimal 160-189 mg/dL, Borderline high 190-219 mg/dL, High >219 mg/dL, Very high Secondary prevention optimal non HDL Cholesterol levels are recommended to be <100 mg/dL Performed By: #### 2 4323-8, 42998-6, 6-4, 2283-8 #### [facility] CLIA [id number] [address] [place] [address] [place] Cholesterol.total/C holesterol in HDL [Mass ratio] 2.82 {ratio} Normal <5.10 [facility] Comment on above: Order Comment: Speci men Type: BLOOD SPECIMEN Ordering Facility: [facility] Address: [address] [place] [address] Performed By: #### 2 4323-8, 14973-4, 2275-4, 2283-8 #### [facility] CLIA [id number] [address] [place] [address] [place] FASTING TIME 14 hrs Normal [facility] Comment on above: Order Comment: Speci men Type: BLOOD SPECIMEN Ordering Facility: [facility] Address: [address] [place] [address] Performed By: #### 2 4323-8, 97522-0, 2275-4, 2283-8 #### [facility] CLIA [id number] [address] [place] [address] [place] Triglyceride [Mass/Vol] 38 mg/dL Normal <150 [facility] Comment on above: Order Comment: Speci men Type: BLOOD SPECIMEN Ordering Facility: [facility] Address: [address] [place], [place] [id number] Result Comment: <150 mg/dL, Normal 150-199 mg/dL, Borderline high 200-499 mg/dL, High >499 mg/dL, Very high Performed By: #### 2 4323-8, 57539-2, 2275-4, 8 #### [facility] CLIA [id number] [facility] [place] [address] [place] T3Free SerPl-mCncon 10-15-19 23 Free T3 [Mass/Vol] 5.2 pg/mL High 2.3-4.1 [facility] Comment on above: Order Comment: Speci men Type: BLOOD SPECIMEN Ordering Facility: [facility] Address: [address] [place] [address] Performed By: #### 2 4323-8, 32538-3, 2275-4, 8 #### [facility] CLIA [id number] [address] [place] [address] [place] T4 Free SerPl-mCncon 023 Free T4 [Mass/Vol] 1.2 ng/dL Normal 0.9-1.7 [facility] Comment on above: Order Comment: Speci men Type: BLOOD SPECIMEN Ordering Facility: [facility] Address: [address] [place] [address] Performed By: #### 2 4323-8, 98795-8, 2275-4, 2283-8 #### [facility] CLIA [id number] [address] [place] TSH SerPl-aCncon 10-14-2022 TSH Qn 1.130 m[IU]/L Normal 0.270-4.200 [facility] Comment on above: Order Comment: Speci men Type: BLOOD SPECIMEN Ordering Facility: [facility] Address: [address] [place] [address] Performed By: #### 2 4323-8, 15284-3, 2276-4, 2284-8 #### [facility] CLIA [id number] [address] [place] VITAMIN B6/PYRIDOXINon 10-14 VITAMIN B6 73.3 nmol/L Normal 20.0-125.0 [facility] Comment on above: Order Comment: Alexandershahnaz levine Type: BLOOD SPECIMENOrdering Facility: [facility] Address: [address] [address] Result Comment: INTE RPRETIVE INFORMATION: Vitamin B6 (Pyridoxal 5-Phosphate) Pyridoxal 5'-phosphate measured in a specimen collected following an 8-hour or overnight fast accurately indicates vitamin B6 nutritional status. Non-fasting specimen concentration reflects recent vitamin intake. This test was developed and its performance characteristics determined by [employer]. It has not been cleared or approved by the [place] Food and Drug Administration. This test was performed in a CLIA certified laboratory and is intended for clinical purposes. Performed By: [facility] [address] [place] [address] Physical Therapist Center Manager: Steve Rios MD, PhD Performed By: #### V ITB6 ####[facility] [employer] [employer] [id number] [place] [address] CNOVon 10-05-2022 CNOV Office Visit (FAMPWS ) HENRY OLIVEIRA ([id number]) 1955 F Date Time Provider Department 10/05/22 8:20 AM SHIN ARIAS During your visit today, we recorded the following information about you: Temperature Pulse Respiration Blood pressure 98.5 degrees 76/minute 16/minute 120/60 Weight 58.1 kg Shin Arias DO 10/05/2022 10:54 AM Signed CC: Henry Oliveira is a 67 year old female who presents to the office for follow up HPI: Rash on right hand and skin changes around left great toe, using Mometasone ointment with benefit. Had this ointment at home. Wasn't getting better with triamcinolone cream given. 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 Hx of stroke and is watching her 4 year old and 18 month old granddaughters 2 days a week and enjoying this. No new neurologic symptoms Hair is thinning, + fatigue, taking her armour thyroid supplement for hypothyroidism, thinning hair mostly in front, mother did have alopecia and thinning early in her life as well. Hyperlipidemia, diet controlled, refuses statin therapy PAST MEDICAL HISTORY Diagnosis Date Abnormal glandular Papanicolaou smear of cervix Abn. Pap smear (cervix) Asymptomatic varicose veins Depressive disorder, not elsewhere classified 09/27/2006 Hearing decreased Hyperlipidemia Hypothyroidism 2010 HERNAN on CPAP [facility] Peripheral vascular disease, unspecified (HCC) varicose veins Sleep apnea CPAP Supraspinatus tendon tear 04/03/2012 right shoulder Vitamin B12 deficiency Vitamin D deficiency 10/30/2013 PAST SURGICAL HISTORY Procedure Laterality Date COLPOSCOPY CERVIX UPPER/ADJACENT VAGINA Colposcopy CORRECT BUNION,SIMPLE 01-31-12 Bunion, left DILATION AND CURETTAGE DXAND/THER NONOBSTETRIC Dilation AND curettage LIG/TRNSXJ FLP TUBE ABDL/VAG APPR UNI/BI COMPLETE Tubal ligation PAST SURGICAL HISTORY OF 11/2003 breast biopsy right, benign PAST SURGICAL HISTORY OF 1997 wrist surgery - after fracture, right PAST SURGICAL HISTORY OF 06/28/13 arthroscopy with open rotator cuff repair Current Outpatient Medications Medication Sig omega 4-pcw-fxw-fish oil (FISH OIL) 100-160-1,000 mg cap Take 1 capsule by mouth. traZODone (DESYREL) 50 mg tablet TAKE 1 TO 2 TABLETS AT BEDTIME FOR SLEEP selenium 200 mcg cap Take by mouth. zinc sulfate (ZINC-15 ORAL) Take by mouth. vitamin B complex (B COMPLEX ORAL) Take 1 tablet by mouth once daily. L-LYSINE ORAL Take 1 capsule by mouth once daily. Cholecalciferol, Vitamin D3, 5,000 unit cap Take 1 capsule by mouth once daily. Aspirin 81 mg Tab Take 4 tablets by mouth one time only for 1 dose. mometasone (ELOCON) 0.1 % ointment Apply to affected area once daily as needed. Once daily as needed on rash mupirocin (BACTROBAN) 2 % ointment Apply to affected area twice daily as needed (skin infection). dextroamphetamine-amph etamine (ADDERALL) 10 mg tablet Take 0.5-1 tablets by mouth once daily for 30 days. predniSONE (DELTASONE) 20 mg tablet Take 1 tablet by mouth once daily. With food hydrOXYzine HCl (ATARAX) 25 mg tablet Take 0.5-1 tablets by mouth four times daily as needed for itching/rash. ARMOUR THYROID 60 mg tablet Take 1 tablet by mouth once daily. cyclobenzaprine (FLEXERIL) 10 mg tablet Take 1 tablet by mouth three times daily as needed for muscle spasm. CPAP Initiate CPAP @ 6 cm of water with humidification. Mask (per patient preference) optional chin strap (if indicated) , filters, tubing, humidifier and lifetime supplies. aspirin 325 mg tablet Take 1 tablet by mouth once daily. cyclobenzaprine (FLEXERIL) 10 mg tablet Take 1 tablet by mouth three times daily as needed for Muscle Spasm. ascorbic acid, vitamin C, (VITAMIN C) 500 mg tablet Take 1 tablet by mouth three times daily. PROPYLENE GLYCOL/PEG 400 (BLINK TEARS LUBRICATING) Eye Drops Use 1 Drop in both eyes four times daily. Current Facility-Administered Medications Medication Dose Route Frequency perflutren lipid microspheres 1.3 mL in NaCl (PF) 0.9% 10 mL injection (DEFINITY) INTRAVENOUS DIRECTED PRN sodium chloride 0.9 % (flush) 10 mL (BD POSIFLUSH) 10 mL INTRAVENOUS DIRECTED PRN ALLERGIES Allergen Reactions Bactrim [Sulfametho* Hives Morphine Sulfate Itching Tea Tree Oil Rash Social History Tobacco Use Smoking status: Former Packs/day: 1.00 Years: 15.00 Pack years: 15.00 Types: Cigarettes Quit date: 02/12/1987 Years since quittin.6 Smokeless tobacco: Never Vaping Use Vaping Use: Never used Substance Use Topics Alcohol use: No Drug use: No ROS: See HPI PE: BP 120/60 Pulse 76 Temp (Src) 98.5 (Left Tympanic) Resp 16 Wt 128 lb (58.1kg) LMP 10/13/2006 Gen: AANDOX3, NAD, non-toxic appearing HEENT: PERRLA, EOMs intact b/l, na (more content not included)... Normal [facility] CNOVon 08-10-2022 CNOV Office Visit (FAMPWS ) TEEHENRY J ([id number]) 1955 F Date Time Provider Department 08/10/22 11:20 AM [facility] During your visit today, we recorded the following information about you: Temperature Pulse Respiration Blood pressure 98.4 degrees 88/minute 16/minute 120/80 Weight 58.1 kg Shin Arias DO 08/10/2022 12:04 PM Signed CC: Henryamie Oliveira is a 66 year old female who presents to the office for rash HPI: Rash, present on great toes/feet, as well as present on her hands, mostly thenar eminence and thumb and index finger by description, red and irritated and blistering. Present for the last 3-4 weeks, no known exposures except for was doing some weeding in her flower bed prior to this starting. Has been trying over the counter creams without relief. Itching a lot, worse at night and sometimes causes difficulty to fall asleep due to the itching. PAST MEDICAL HISTORY Diagnosis Date Abnormal glandular Papanicolaou smear of cervix Abn. Pap smear (cervix) Asymptomatic varicose veins Depressive disorder, not elsewhere classified 09/27/2006 Hearing decreased Hyperlipidemia Hypothyroidism 2010 HERNAN on CPAP [facility] Peripheral vascular disease, unspecified (HCC) varicose veins Sleep apnea CPAP Supraspinatus tendon tear 04/03/2012 right shoulder Vitamin B12 deficiency Vitamin D deficiency 10/30/2013 PAST SURGICAL HISTORY Procedure Laterality Date COLPOSCOPY CERVIX UPPER/ADJACENT VAGINA Colposcopy CORRECT BUNION,SIMPLE 01-31-12 Bunion, left DILATION AND CURETTAGE DXAND/THER NONOBSTETRIC 1980s Dilation AND curettage LIG/TRNSXJ FLP TUBE ABDL/VAG APPR UNI/BI COMPLETE Tubal ligation PAST SURGICAL HISTORY OF 11/2003 breast biopsy right, benign PAST SURGICAL HISTORY OF 1997 wrist surgery - after fracture, right PAST SURGICAL HISTORY OF 06/28/13 arthroscopy with open rotator cuff repair Current Outpatient Medications Medication Sig omega 9-dux-kqm-fish oil (FISH OIL) 100-160-1,000 mg cap Take 1 capsule by mouth. traZODone (DESYREL) 50 mg tablet TAKE 1 TO 2 TABLETS AT BEDTIME FOR SLEEP selenium 200 mcg cap Take by mouth. zinc sulfate (ZINC-15 ORAL) Take by mouth. CPAP Initiate CPAP @ 6 cm of water with humidification. Mask (per patient preference) optional chin strap (if indicated) , filters, tubing, humidifier and lifetime supplies. vitamin B complex (B COMPLEX ORAL) Take 1 tablet by mouth once daily. L-LYSINE ORAL Take 1 capsule by mouth once daily. aspirin 325 mg tablet Take 1 tablet by mouth once daily. cyclobenzaprine (FLEXERIL) 10 mg tablet Take 1 tablet by mouth three times daily as needed for Muscle Spasm. Cholecalciferol, Vitamin D3, 5,000 unit cap Take 1 capsule by mouth once daily. ascorbic acid, vitamin C, (VITAMIN C) 500 mg tablet Take 1 tablet by mouth three times daily. PROPYLENE GLYCOL/PEG 400 (BLINK TEARS LUBRICATING) Eye Drops Use 1 Drop in both eyes four times daily. Aspirin 81 mg Tab Take 4 tablets by mouth one time only for 1 dose. triamcinolone acetonide (KENALOG) 0.5 % cream Apply 1 application to affected area three times daily. For rash/itching. Apply sparingly. Avoid face/skin fold. predniSONE (DELTASONE) 20 mg tablet Take 1 tablet by mouth once daily. With food hydrOXYzine HCl (ATARAX) 25 mg tablet Take 0.5-1 tablets by mouth four times daily as needed for itching/rash. ARMOUR THYROID 60 mg tablet Take 1 tablet by mouth once daily. dextroamphetamine-amph etamine (ADDERALL) 10 mg tablet Take 0.5-1 tablets by mouth once daily for 30 days. cyclobenzaprine (FLEXERIL) 10 mg tablet Take 1 tablet by mouth three times daily as needed for muscle spasm. Current Facility-Administered Medications Medication Dose Route Frequency perflutren lipid microspheres 1.3 mL in NaCl (PF) 0.9% 10 mL injection (DEFINITY) INTRAVENOUS DIRECTED PRN sodium chloride 0.9 % (flush) 10 mL (BD POSIFLUSH) 10 mL INTRAVENOUS DIRECTED PRN ALLERGIES Allergen Reactions Bactrim [Sulfametho* Hives Morphine Sulfate Itching Tea Tree Oil Rash Social History Tobacco Use Smoking status: Former Packs/day: 1.00 Years: 15.00 Pack years: 15.00 Types: Cigarettes Quit date: 02/12/1987 Years since quittin.5 Smokeless tobacco: Never Vaping Use Vaping Use: Never used Substance Use Topics Alcohol use: No Drug use: No ROS: See HPI PE: BP 120/80 Pulse 88 Temp (Src) 98.4 (Right Tympanic) Resp 16 Wt 128 lb (58.1kg) LMP 10/13/2006 Gen: AANDOX3, NAD, non-toxic appearing Skin: vesicular papular rash with crusting and erythematous base on thenar and 1-2nd fingers on hands as well as b/l great toes and onto proximal dorsal foot without signs of infection ASSESSMENT/PLAN: 1. Dermatitis contact - ICD9: 692.9, ICD10: L25.9 (primary diagnosis) - Oral Steriod tx -Prednisone burst - Topica (more content not included)... Normal [facility] 08-09-2022 CNPN Telephone (FAMPWS) HENRY OLIVEIRA ([id number]) 1955 F Date Time Provider Department 08/09/22 SHIN ARIAS During your visit today, we recorded the following information about you: Breana Saha FLIGHT PHYSICIAN 08/09/2022 8:08 AM Signed Patient calling asking for appt today with PCP she has poison ismael rash and hands and feet and is spreading. Patient refuses to go to express care, aware PLAYERS ASSISTANT are out of office today. Please advise Shin Arias DO 08/09/2022 5:22 PM Signed Please schedule her an appt. I have 3 openings tomorrow or can see PLAYERS ASSISTANT as well Shin Arias DO Lupe Jerman GORMAN 08/09/2022 5:26 PM Signed Appointment made message left on . Allergies As of Date: 08/09/2022 Noted Allergy Reaction BACTRIM (SULFAMETHOXAZOLE) 05/23/2014 4 - Hives MORPHINE SULFATE 03/30/2005 9 - Itching TEA TREE OIL 07/22/2009 2 - Rash Date Reviewed: 06/06/2022 Reviewed by: Jossy Gustafson APRN.BANK OPERATIONS OFFICER - Fully Assessed Reason for Visit: Appointment [186] Prescriptions as of 08/09/2022 - ARMOUR THYROID 90 mg tablet Take 1 tablet by mouth once daily. - dextroamphetamine-amph etamine (ADDERALL) 10 mg tablet Take 0.5-1 tablets by mouth once daily for 30 days. - omega 1-drt-ogp-fish oil (FISH OIL) 100-160-1,000 mg cap Take 1 capsule by mouth. - ARMOUR THYROID 90 mg tablet Take 1 tablet by mouth daily before breakfast. - traZODone (DESYREL) 50 mg tablet TAKE 1 TO 2 TABLETS AT BEDTIME FOR SLEEP - selenium 200 mcg cap Take by mouth. - zinc sulfate (ZINC-15 ORAL) Take by mouth. - cyclobenzaprine (FLEXERIL) 10 mg tablet Take 1 tablet by mouth three times daily as needed for muscle spasm. - CPAP Initiate CPAP @ 6 cm of water with humidification. Mask (per patient preference) optional chin strap (if indicated) , filters, tubing, humidifier and lifetime supplies. - vitamin B complex (B COMPLEX ORAL) Take 1 tablet by mouth once daily. - L-LYSINE ORAL Take 1 capsule by mouth once daily. - aspirin 325 mg tablet Take 1 tablet by mouth once daily. - Thyroid, Pork, (NATURE-THROID) 195 mg tab 1 tablet PO daily in the morning - cyclobenzaprine (FLEXERIL) 10 mg tablet Take 1 tablet by mouth three times daily as needed for Muscle Spasm. - triamcinolone acetonide (KENALOG) 0.1 % cream Apply 1 application to affected area twice daily as needed. Apply sparingly to area for rash/itching. - Cholecalciferol, Vitamin D3, 5,000 unit cap Take 1 capsule by mouth once daily. - ascorbic acid, vitamin C, (VITAMIN C) 500 mg tablet Take 1 tablet by mouth three times daily. - PROPYLENE GLYCOL/PEG 400 (BLINK TEARS LUBRICATING) Eye Drops Use 1 Drop in both eyes four times daily. - Aspirin 81 mg Tab Take 4 tablets by mouth one time only for 1 dose. Facility-Administered Medications as of 08/09/2022 - perflutren lipid microspheres 1.3 mL in NaCl (PF) 0.9% 10 mL injection (DEFINITY) - sodium chloride 0.9 % (flush) 10 mL (BD POSIFLUSH) Meds Comments as of 08/09/2021: .rxe Problem List As Of Date 08/09/2022 Noted Resolved DEPRESSIVE DISORDER NEC [F32.89] 09/27/2006 09/19/2008 SPRAIN OF NECK [S13.9XXA] 10/11/2006 06/28/2007 CERVICALGIA [M54.2] 11/13/2006 06/28/2007 ANXIETY STATE NOS [F41.1] 12/12/2006 09/19/2008 Asymptomatic varicose veins [I83.90] Adjustment disorder with mixed anxiety and depr*09/19/2008 11/30/2015 Dyslipidemia [E78.5] 11/08/2010 Chronic low back pain [M54.50, G89.29] 11/08/2010 Degenerative joint disease [M19.90] 11/08/2010 Metatarsalgia [M77.40] 09/02/2011 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] 09/02/2011 Other hammer toe (acquired) [M20.40] 09/02/2011 Hallux valgus (acquired) [M20.10] 09/02/2011 Traumatic tear of right rotator cuff [S46.011A] 05/03/2012 11/11/2013 Rotator cuff (capsule) sprain [S43.429A] 05/23/2012 11/11/2013 Insomnia [G47.00] 12/27/2012 Anxiety [F41.9] 12/27/2012 Depression [F32.A] 02/08/2013 Vitamin D deficiency [E55.9] 10/30/2013 Pain in joint, shoulder region [M25.519] 11/04/2013 11/30/2015 HERNAN (obstructive sleep apnea) [G47.33] 05/23/2014 Excessive daytime sleepiness [G47.19] 05/23/2014 Hypothyroidism [E03.9] 10/27/2014 Atypical nevus of shoulder [D22.60] 09/16/2015 Atypical nevus of back [D22.5] 09/16/2015 Vitreous floaters of both eyes [H43.393] 02/23/2016 Dry eye syndrome [H04.129] 02/23/2016 Encounter for screening mammogram for malignant*03/31/2016 Acute bilateral low back pain with right-sided *11/01/2016 Somatic dysfunction of pelvic region [M99.05] 11/01/2016 Somatic dysfunction of lumbar region [M99.03] 11/01/2016 Acute back pain with sciatica [M54.40] 12/05/2016 Situational stress [F43.9] 02/28/2017 Fatigue [R53.83] 02/28/2017 Concentration deficit [R41.840] 02/28/2017 Mood disorder (HCC) [F39] 02/28/2017 Neural foraminal stenosis of lumbar spine [M48.*07/17/2017 Intervertebral disc disorder with radiculopathy*03 (more content not included)... Normal [facility] CNPNon 08-03-2022 CNPN Telephone (FAMPWS) HENRY OLIVEIRA ([id number]) 1955 F Date Time Provider Department 08/03/22 HUGOSHIN FAMPWS During your visit today, we recorded the following information about you: Shin Arias, 08/03/2022 8:53 PM Signed Please inform patient that her labs show that her cholesterol is still high but improving. Continue good diet with less intake of animal fats as well as need for regular exercise 3-4 days a week Her free t3 is slightly high and free t4 is normal and TSH is normal. Would recommend holding her armour thyroid 1 day a week Shin Arias, DO 08/04/2022 8:48 AM Signed Left message for patient to return call [facility] Breana Yifan GORMAN 08/05/2022 8:38 AM Signed Patient returned call and went over results, notes from Dr Arias with understanding. Patient said she has been skipping one day a week for long time with her amour thyroid. Patient asking what did you want her to do now? Jossy Gustafson APRN.ARA 08/05/2022 3:25 PM Signed Hold armour thyroid 2x per week. Jossy Gustafson APRN.ARA Jaz08/05/2022 3:29 PM Signed Pt informed, verbalized understanding Allergies As of Date: 08/03/2022 Noted Allergy Reaction BACTRIM (SULFAMETHOXAZOLE) 05/23/2014 4 - Hives MORPHINE SULFATE 03/30/2005 9 - Itching TEA TREE OIL 07/22/2009 2 - Rash Date Reviewed: 06/06/2022 Reviewed by: Jossy Gustafson APRN.BANK OPERATIONS OFFICER - Fully Assessed Reason for Visit: Results [95] Prescriptions as of 08/05/2022 - ARMOUR THYROID 90 mg tablet Take 1 tablet by mouth once daily. - dextroamphetamine-amph etamine (ADDERALL) 10 mg tablet Take 0.5-1 tablets by mouth once daily for 30 days. - omega 4-rbw-wpx-fish oil (FISH OIL) 100-160-1,000 mg cap Take 1 capsule by mouth. - ARMOUR THYROID 90 mg tablet Take 1 tablet by mouth daily before breakfast. - traZODone (DESYREL) 50 mg tablet TAKE 1 TO 2 TABLETS AT BEDTIME FOR SLEEP - selenium 200 mcg cap Take by mouth. - zinc sulfate (ZINC-15 ORAL) Take by mouth. - cyclobenzaprine (FLEXERIL) 10 mg tablet Take 1 tablet by mouth three times daily as needed for muscle spasm. - CPAP Initiate CPAP @ 6 cm of water with humidification. Mask (per patient preference) optional chin strap (if indicated) , filters, tubing, humidifier and lifetime supplies. - vitamin B complex (B COMPLEX ORAL) Take 1 tablet by mouth once daily. - L-LYSINE ORAL Take 1 capsule by mouth once daily. - aspirin 325 mg tablet Take 1 tablet by mouth once daily. - Thyroid, Pork, (NATURE-THROID) 195 mg tab 1 tablet PO daily in the morning - cyclobenzaprine (FLEXERIL) 10 mg tablet Take 1 tablet by mouth three times daily as needed for Muscle Spasm. - triamcinolone acetonide (KENALOG) 0.1 % cream Apply 1 application to affected area twice daily as needed. Apply sparingly to area for rash/itching. - Cholecalciferol, Vitamin D3, 5,000 unit cap Take 1 capsule by mouth once daily. - ascorbic acid, vitamin C, (VITAMIN C) 500 mg tablet Take 1 tablet by mouth three times daily. - PROPYLENE GLYCOL/PEG 400 (BLINK TEARS LUBRICATING) Eye Drops Use 1 Drop in both eyes four times daily. - Aspirin 81 mg Tab Take 4 tablets by mouth one time only for 1 dose. Facility-Administered Medications as of 08/05/2022 - perflutren lipid microspheres 1.3 mL in NaCl (PF) 0.9% 10 mL injection (DEFINITY) - sodium chloride 0.9 % (flush) 10 mL (BD POSIFLUSH) Meds Comments as of 08/09/2021: .rxe Problem List As Of Date 08/03/2022 Noted Resolved DEPRESSIVE DISORDER NEC [F32.89] 09/27/2006 09/19/2008 SPRAIN OF NECK [S13.9XXA] 10/11/2006 06/28/2007 CERVICALGIA [M54.2] 11/13/2006 06/28/2007 ANXIETY STATE NOS [F41.1] 12/12/2006 09/19/2008 Asymptomatic varicose veins [I83.90] Adjustment disorder with mixed anxiety and depr*09/19/2008 11/30/2015 Dyslipidemia [E78.5] 11/08/2010 Chronic low back pain [M54.50, G89.29] 11/08/2010 Degenerative joint disease [M19.90] 11/08/2010 Metatarsalgia [M77.40] 09/02/2011 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] 09/02/2011 Other hammer toe (acquired) [M20.40] 09/02/2011 Hallux valgus (acquired) [M20.10] 09/02/2011 Traumatic tear of right rotator cuff [S46.011A] 05/03/2012 11/11/2013 Rotator cuff (capsule) sprain [S43.429A] 05/23/2012 11/11/2013 Insomnia [G47.00] 12/27/2012 Anxiety [F41.9] 12/27/2012 Depression [F32.A] 02/08/2013 Vitamin D deficiency [E55.9] 10/30/2013 Pain in joint, shoulder region [M25.519] 11/04/2013 11/30/2015 HERNAN (obstructive sleep apnea) [G47.33] 05/23/2014 Excessive daytime sleepiness [G47.19] 05/23/2014 Hypothyroidism [E03.9] 10/27/2014 Atypical nevus of shoulder [D22.60] 09/16/2015 Atypical nevus of back [D22.5] 09/16/2015 Vitreous floaters of both eyes [H43.393] 02/23/2016 Dry eye syndrome [H04.129] 02/23/2016 Encounter for screening mammogram for malignant*03/31/2016 (more content not included)... [facility] ([id number]) 1955 F Date Time Provider Department 08/03/22 [facility]AS [facility] During your visit today, we recorded the following information about you: Laury Pierre RN 08/03/2022 10:55 AM Signed Pt called in and reports office will need to call insurance phone # [phone] to get their [employer] Thyroid added to insurance formulary. Pt reports she is almost out of medication. Prior Authorization Documentation Prior authorization requested for the following medication: Medication: [employer] Thyroid Provider: Dr Arias Insurance Company Name: [facility] Medicare Insurance Company Phone number: [phone] Patient ID number: [id number] Pharmacy Name: [facility] Telephone number: [phone] Doretha Judd [facility] 08/05/2022 2:03 PM Addendum THE OFFICE CAN COMPLETE A PA. we have no pharmacy benefits on file. Will have to review via covermymeds.We do not have the ability to add meds to a formulary. Doretha Judd FLIGHT PHYSICIAN 08/03/2022 11:39 AM Signed Henry Oliveira Sawyer: [id number] - PA help? Call us at Status Sent to [facility] [employer] Thyroid 90MG tablets Form [employer] Electronic Prior Authorization Form (2016 NCPDP) Doretha Judd FLIGHT PHYSICIAN 08/03/2022 2:23 PM Signed Henry Oliveira Sawyer: [id number] - [place] help? Call us at Outcome Deniedtoday Request Reference Number: [id number]. ARMOUR THYRO TAB 90MG is denied for not meeting the prior authorization requirement(s). Details of this decision are in the notice attached below or have been faxed to you Breana Saha [facility] 08/05/2022 8:37 AM Signed Patient calling said she needs formulary exception done for the Amour thyroid. Doretha Judd FLIGHT PHYSICIAN 08/05/2022 2:08 PM Signed Called the number provided. This was not correct. Pharmacy is [phone]. PA already completed and denied. Tier exception is being reviewed. Will rec'd response via fax. The reference number for this is [id number]. This call took over 20 minutes. Doretha Judd FLIGHT PHYSICIAN 09/07/2022 10:25 AM Signed Called insurance and they report if the if the insurance has denied this for a PA for the medicine. The tier exception is also denied. They are faxing this info to the providers office. Doretha Judd VITA 09/07/2022 10:53 AM Signed Rec'd fax and this was dated 08/05/22. To medical records for scanning. My chart message to pt. Allergies As of Date: 08/03/2022 Noted Allergy Reaction BACTRIM (SULFAMETHOXAZOLE) 05/23/2014 4 - Hives MORPHINE SULFATE 03/30/2005 9 - Itching TEA TREE OIL 07/22/2009 2 - Rash Date Reviewed: 06/06/2022 Reviewed by: Jossy Gustafson APRN.BANK OPERATIONS OFFICER - Fully Assessed Reason for Visit: Medication Problem [65] Prescriptions as of 09/07/2022 - triamcinolone acetonide (KENALOG) 0.5 % cream Apply 1 application to affected area three times daily. For rash/itching. Apply sparingly. Avoid face/skin fold. - predniSONE (DELTASONE) 20 mg tablet Take 1 tablet by mouth once daily. With food - hydrOXYzine HCl (ATARAX) 25 mg tablet Take 0.5-1 tablets by mouth four times daily as needed for itching/rash. - ARMOUR THYROID 60 mg tablet Take 1 tablet by mouth once daily. - dextroamphetamine-amph etamine (ADDERALL) 10 mg tablet Take 0.5-1 tablets by mouth once daily for 30 days. - omega 0-sdf-fbh-fish oil (FISH OIL) 100-160-1,000 mg cap Take 1 capsule by mouth. - traZODone (DESYREL) 50 mg tablet TAKE 1 TO 2 TABLETS AT BEDTIME FOR SLEEP - selenium 200 mcg cap Take by mouth. - zinc sulfate (ZINC-15 ORAL) Take by mouth. - cyclobenzaprine (FLEXERIL) 10 mg tablet Take 1 tablet by mouth three times daily as needed for muscle spasm. - CPAP Initiate CPAP @ 6 cm of water with humidification. Mask (per patient preference) optional chin strap (if indicated) , filters, tubing, humidifier and lifetime supplies. - vitamin B complex (B COMPLEX ORAL) Take 1 tablet by mouth once daily. - L-LYSINE ORAL Take 1 capsule by mouth once daily. - aspirin 325 mg tablet Take 1 tablet by mouth once daily. - cyclobenzaprine (FLEXERIL) 10 mg tablet Take 1 tablet by mouth three times daily as needed for Muscle Spasm. - Cholecalciferol, Vitamin D3, 5,000 unit cap Take 1 capsule by mouth once daily. - ascorbic acid, vitamin C, (VITAMIN C) 500 mg tablet Take 1 tablet by mouth three times daily. - PROPYLENE GLYCOL/PEG 400 (BLINK TEARS LUBRICATING) Eye Drops Use 1 Drop in both eyes four times daily. - Aspirin 81 mg Tab Take 4 tablets by mouth one time only for 1 dose. Facility-Administered Medications as of 09/07/2022 - perflutren lipid microspheres 1.3 mL in NaCl (PF) 0.9% 10 mL injection (DEFINITY) - sodium chloride 0.9 % (flush) 10 mL (BD POSIFLUSH) Meds Comments as of 08/09/2021: .rxe Problem List As Of Date 08/03/2022 Noted Resolved (more content not included)... Normal [facility] Hemoccult Stl Ql IAon 2022 Lower GI hemoglobin IA Ql (Stl) Negative Normal Negative [facility] Comment on above: Order Comment: Speci men Type: STOOL SPECIMENOrdering Facility: [facility] Address: [address] [place] [address] Performed By: #### 2 9771-3 ####[facility] LABCLIA [id number] [address] [place] Bailey 07-22-2022 ARAN Telephone (NORRISWS) HENRY OLIVEIRA ([id number]) 1955 F Date Time Provider Department 07/22/22 SHIN ARIAS During your visit today, we recorded the following information about you: Shin Arias DO 07/22/2022 7:36 AM Signed Please inform patient that her PFTs and lung volumes were normal as below IMPRESSION: Spirometry is normal. There was not a significant bronchodilator response. The TLC, RV and RV/TLC are normal. DO Lupe Yarbrough LPN 07/22/2022 10:09 AM Signed Pt. informed via My Chart. Allergies As of Date: 07/22/2022 Noted Allergy Reaction BACTRIM (SULFAMETHOXAZOLE) 05/23/2014 4 - Hives MORPHINE SULFATE 03/30/2005 9 - Itching TEA TREE OIL 07/22/2009 2 - Rash Date Reviewed: 06/06/2022 Reviewed by: Jossy Gustafson APRN.BANK OPERATIONS OFFICER - Fully Assessed Reason for Visit: Results [95] Prescriptions as of 07/22/2022 - ARMOUR THYROID 90 mg tablet Take 1 tablet by mouth once daily. - dextroamphetamine-amph etamine (ADDERALL) 10 mg tablet Take 0.5-1 tablets by mouth once daily for 30 days. - omega 8-gqg-vyc-fish oil (FISH OIL) 100-160-1,000 mg cap Take 1 capsule by mouth. - ARMOUR THYROID 90 mg tablet Take 1 tablet by mouth daily before breakfast. - traZODone (DESYREL) 50 mg tablet TAKE 1 TO 2 TABLETS AT BEDTIME FOR SLEEP - selenium 200 mcg cap Take by mouth. - zinc sulfate (ZINC-15 ORAL) Take by mouth. - cyclobenzaprine (FLEXERIL) 10 mg tablet Take 1 tablet by mouth three times daily as needed for muscle spasm. - CPAP Initiate CPAP @ 6 cm of water with humidification. Mask (per patient preference) optional chin strap (if indicated) , filters, tubing, humidifier and lifetime supplies. - vitamin B complex (B COMPLEX ORAL) Take 1 tablet by mouth once daily. - L-LYSINE ORAL Take 1 capsule by mouth once daily. - aspirin 325 mg tablet Take 1 tablet by mouth once daily. - Thyroid, Pork, (NATURE-THROID) 195 mg tab 1 tablet PO daily in the morning - cyclobenzaprine (FLEXERIL) 10 mg tablet Take 1 tablet by mouth three times daily as needed for Muscle Spasm. - triamcinolone acetonide (KENALOG) 0.1 % cream Apply 1 application to affected area twice daily as needed. Apply sparingly to area for rash/itching. - Cholecalciferol, Vitamin D3, 5,000 unit cap Take 1 capsule by mouth once daily. - ascorbic acid, vitamin C, (VITAMIN C) 500 mg tablet Take 1 tablet by mouth three times daily. - PROPYLENE GLYCOL/PEG 400 (BLINK TEARS LUBRICATING) Eye Drops Use 1 Drop in both eyes four times daily. - Aspirin 81 mg Tab Take 4 tablets by mouth one time only for 1 dose. Facility-Administered Medications as of 07/22/2022 - perflutren lipid microspheres 1.3 mL in NaCl (PF) 0.9% 10 mL injection (DEFINITY) - sodium chloride 0.9 % (flush) 10 mL (BD POSIFLUSH) Meds Comments as of 08/09/2021: .rxe Problem List As Of Date 07/22/2022 Noted Resolved DEPRESSIVE DISORDER NEC [F32.89] 09/27/2006 09/19/2008 SPRAIN OF NECK [S13.9XXA] 10/11/2006 06/28/2007 CERVICALGIA [M54.2] 11/13/2006 06/28/2007 ANXIETY STATE NOS [F41.1] 12/12/2006 09/19/2008 Asymptomatic varicose veins [I83.90] Adjustment disorder with mixed anxiety and depr*09/19/2008 11/30/2015 Dyslipidemia [E78.5] 11/08/2010 Chronic low back pain [M54.50, G89.29] 11/08/2010 Degenerative joint disease [M19.90] 11/08/2010 Metatarsalgia [M77.40] 09/02/2011 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] 09/02/2011 Other hammer toe (acquired) [M20.40] 09/02/2011 Hallux valgus (acquired) [M20.10] 09/02/2011 Traumatic tear of right rotator cuff [S46.011A] 05/03/2012 11/11/2013 Rotator cuff (capsule) sprain [S43.429A] 05/23/2012 11/11/2013 Insomnia [G47.00] 12/27/2012 Anxiety [F41.9] 12/27/2012 Depression [F32.A] 02/08/2013 Vitamin D deficiency [E55.9] 10/30/2013 Pain in joint, shoulder region [M25.519] 11/04/2013 11/30/2015 HERNAN (obstructive sleep apnea) [G47.33] 05/23/2014 Excessive daytime sleepiness [G47.19] 05/23/2014 Hypothyroidism [E03.9] 10/27/2014 Atypical nevus of shoulder [D22.60] 09/16/2015 Atypical nevus of back [D22.5] 09/16/2015 Vitreous floaters of both eyes [H43.393] 02/23/2016 Dry eye syndrome [H04.129] 02/23/2016 Encounter for screening mammogram for malignant*03/31/2016 Acute bilateral low back pain with right-sided *11/01/2016 Somatic dysfunction of pelvic region [M99.05] 11/01/2016 Somatic dysfunction of lumbar region [M99.03] 11/01/2016 Acute back pain with sciatica [M54.40] 12/05/2016 Situational stress [F43.9] 02/28/2017 Fatigue [R53.83] 02/28/2017 Concentration deficit [R41.840] 02/28/2017 Mood disorder (HCC) [F39] 02/28/2017 Neural foraminal stenosis of lumbar spine [M48.*07/17/2017 Intervertebral disc disorder with radiculopathy*07/18/19 DDD (degenerative disc disease), lumbar [M51.36]07/17/2017 Hypothyroidism, acquired [E03.9] 07/25/2018 Well adult exam [Z00.00 (more content not included)... Normal [facility] 25(OH)D3 [facility] 2022 25-hydroxyvitamin D3 [Mass/Vol] 59.2 ng/mL Normal 31.0-80.0 [facility] Comment on above: Order Comment: Speci men Type: BLOOD SPECIMEN [facility]: [facility] Address: [address] [place] [address] [place] [address] Result Comment: Clas sification of 25 [place] Vitamin D status: Deficiency/Insufficiency: < or = 30 ng/ml. Sufficiency/Optimal Levels: 31-80 ng/mL Toxicity: > 100 ng/mL. Test performed by chemiluminescent immunoassay. Performed By: #### 2 4323-8, 54752-9, 2276-4, 2284-8 #### [facility] CLIA [id number] [address] [place] [address] [place] CBC W Auto Differential pane l (Bld)on 07-20-2022 Basophils (Bld) [#/Vol] 0.08 10*3/uL Normal <0.11 [facility] Comment on above: Order Comment: Speci men Type: BLOOD SPECIMENOrdering Facility: [facility] Address: [address] [place] [address] Performed By: #### 5 7021-8 ####[facility] LABCLIA [id number] [place] [address] [place] Basophils/100 WBC (Bld) 1.3 % Normal [facility] Comment on above: Order Comment: Speci men Type: BLOOD SPECIMENOrdering Facility: [facility] Address: [address] [place] [address] Performed By: #### 5 7021-8 ####[facility] LABCLIA [id number] [place] [address] [place] Differential cell count method Nom (Bld) Auto Normal [facility] Comment on above: Order Comment: Speci men Type: BLOOD SPECIMENOrdering Facility: [facility] Address: [address] [place] [address] Performed By: #### 5 7021-8 ####[facility] LABCLIA [id number] [place] [address] [place] Eosinophils (Bld) [#/Vol] 0.12 10*3/uL Normal <0.46 [facility] Comment on above: Order Comment: Speci men Type: BLOOD SPECIMENOrdering Facility: [facility] Address: [address] [place] [address] Performed By: #### 5 7021-8 ####[facility] LABCLIA [id number] [place] [address] [place] Eosinophils/100 WBC (Bld) 1.9 % Normal [facility] Comment on above: Order Comment: Speci men Type: BLOOD SPECIMENOrdering Facility: [facility] Address: [address] [place], [place] [address] Performed By: #### 5 7021-8 ####[facility] LABCLIA [id number] [place] [address] [place] Erythrocyte distribution width (RBC) [Ratio] 12.4 % Normal 11.5-15.0 [facility] Comment on above: Order Comment: Speci men Type: BLOOD SPECIMENOrdering Facility: [facility] Address: [address] [place], [place] [address] Performed By: #### 5 7021-8 ####[facility] LABIA [id number] [place] [address] [place] Hematocrit (Bld) [Volume fraction] 43.5 % Normal 36.0-46.0 [facility] Comment on above: Order Comment: Speci men Type: BLOOD SPECIMENOrdering Facility: [facility] Address: [address] [place], [place] [address] Performed By: #### 5 7021-8 ####[facility] LABIA [id number] [place] [address] [place] Hemoglobin (Bld) [Mass/Vol] 14.7 g/dL Normal 11.5-15.5 [facility] Comment on above: Order Comment: Speci men Type: BLOOD SPECIMENOrdering Facility: [facility] Address: [address] [place], [place] [address] Performed By: #### 5 7021-8 ####[facility] LABIA [id number] [place] [address] [place] Immature granulocytes (Bld) [#/Vol] 10*3/uL Normal <0.10 [facility] Comment on above: Order Comment: Speci men Type: BLOOD SPECIMENOrdering Facility: [facility] Address: [address] Performed By: #### 5 7021-8 ####[facility] LABCLIA [id number] [address] STATES [facility] Immature granulocytes/100 WBC (Bld) 0.2 % Normal [facility] Comment on above: Order Comment: Speci men Type: BLOOD SPECIMENOrdering Facility: [facility] Address: [address] Performed By: #### 5 7021-8 ####[facility] LABIA [id number] [place] [address] [place] Lymphocytes (Bld) [#/Vol] 1.98 10*3/uL Normal 1.00-4.00 [facility] Comment on above: Order Comment: Speci men Type: BLOOD SPECIMENOrdering Facility: [facility] Address: [address] [place], [place] [address] Performed By: #### 5 7021-8 ####[facility] LABIA [id number] [address] [place] Lymphocytes/100 WBC (Bld) 31.8 % Normal [facility] Comment on above: Order Comment: Speci men Type: BLOOD SPECIMENOrdering Facility: [facility] Address: [address] [place], [place] [address] Performed By: #### 5 7021-8 ####[facility] LABIA [id number] [place] [address] [place] MCH (RBC) [Entitic mass] 30.1 pg Normal 26.0-34.0 [facility] Comment on above: Order Comment: Speci men Type: BLOOD SPECIMENOrdering Facility: [facility] Address: [address] [place], [place] [address] Performed By: #### 5 7021-8 ####[facility] LABIA [id number] [place] [address] [place] [facility] MCHC (RBC) [Mass/Vol] 33.8 g/dL Normal 30.5-36.0 [facility] Comment on above: Order Comment: Speci men Type: BLOOD SPECIMENOrdering Facility: [facility] Address: [address] [place] [address] Performed By: #### 5 7021-8 ####[facility] LABIA [id number] [place] [address] [place] MCV (RBC) [Entitic vol] 89.0 fL Normal 80.0-100.0 [facility] Comment on above: Order Comment: Speci men Type: BLOOD SPECIMENOrdering Facility: [facility] Address: [address] [place] [address] Performed By: #### 5 7021-8 ####[facility] LABIA [id number] [place] [address] [place] Monocytes (Bld) [#/Vol] 0.45 10*3/uL Normal <0.87 [facility] Comment on above: Order Comment: Speci men Type: BLOOD SPECIMENOrdering Facility: [facility] Address: [address] [place] [address] Performed By: #### 5 7021-8 ####[facility] LABIA [id number] [place] [address] [place] Monocytes/100 WBC (Bld) 7.2 % Normal [facility] Comment on above: Order Comment: Speci men Type: BLOOD SPECIMENOrdering Facility: [facility] Address: [address] [place], [place] [address] Performed By: #### 5 7021-8 ####[facility] LABIA [id number] [place] [address] [place] Neutrophils (Bld) [#/Vol] 3.59 10*3/uL Normal 1.45-7.50 [facility] Comment on above: Order Comment: Speci men Type: BLOOD SPECIMENOrdering Facility: [facility] Address: [address] Performed By: #### 5 7021-8 ####[facility] LABCLIA [id number] [address] [place] Neutrophils/100 WBC (Bld) 57.6 % Normal [facility] Comment on above: Order Comment: Speci men Type: BLOOD SPECIMENOrdering Facility: [facility] Address: [address] Performed By: #### 5 7021-8 ####[facility] LABCLIA [id number] [place] [address] [place] Nucleated RBC (Bld) [#/Vol] 10*3/uL Normal <0.01 [facility] Comment on above: Order Comment: Speci men Type: BLOOD SPECIMENOrdering Facility: [facility] Address: [address] Performed By: #### 5 7021-8 ####[facility] LABCLIA [id number] [place] [address] [place] Nucleated RBC/100 WBC (Bld) [Ratio] 0.0 /100 WBC Normal [facility] Comment on above: Order Comment: Speci men Type: BLOOD SPECIMENOrdering Facility: [facility] Address: [address] [place], [place] [address] Performed By: #### 5 7021-8 ####[facility] LABCLIA [id number] [place] [address] [place] Platelet mean volume (Bld) [Entitic vol] 10.6 fL Normal 9.0-12.7 [facility] Comment on above: Order Comment: Speci men Type: BLOOD SPECIMENOrdering Facility: [facility] Address: [address] Performed By: #### 5 7021-8 ####[facility] LABCLIA [id number] [place] [address] [place] Platelets (Bld) [#/Vol] 233 10*3/uL Normal 150-400 [facility] Comment on above: Order Comment: Speci men Type: BLOOD SPECIMENOrdering Facility: [facility] Address: [address] [place] [address] Performed By: #### 5 7021-8 ####[facility] LABCLIA [id number] [place] [address] [place] RBC (Bld) [#/Vol] 4.89 10*6/uL Normal 3.90-5.20 [facility] Comment on above: Order Comment: Speci men Type: BLOOD SPECIMENOrdering Facility: [facility] Address: [address] [place] [address] Performed By: #### 5 7021-8 ####[facility] LABCLIA [id number] [place] [address] [place] WBC (Bld) [#/Vol] 6.23 10*3/uL Normal 3.70-11.00 [facility] Comment on above: Order Comment: Speci men Type: BLOOD SPECIMENOrdering Facility: [facility] Address: [address] [place] [address] Performed By: #### 5 7021-8 ####[facility] LABCLIA [id number] [place] [address] [place] Comprehensive metabolic 2000 panelon 07-20-2022 Albumin [Mass/Vol] 4.6 g/dL Normal 3.9-4.9 [facility] Comment on above: Order Comment: Speci men Type: BLOOD SPECIMEN [facility] Address: [address] [place] [address] Performed By: #### 2 4323-8, 28143-9, 2276-4, 2284-8 #### [facility] CLIA [id number] [address] [place] [address] [place] ALP [Catalytic activity/Vol] 116 U/L Normal 34-123 [facility] Comment on above: Order Comment: Speci men Type: BLOOD SPECIMEN [facility] Address: [address] [place], [place] [address] Performed By: #### 2 4323-8, 98693-8, 2275-4, 2283-8 #### [facility] CLIA [id number] [address] [place] [address] [place] ALT [Catalytic activity/Vol] 14 U/L Normal 7-38 [facility] Comment on above: Order Comment: Speci men Type: BLOOD SPECIMEN [facility] Address: [address] [place] [address] Performed By: #### 2 4323-8, 65449-7, 2275-4, 2283-8 #### [facility] CLIA [id number] [address] [place] [address] [place] Anion gap [Moles/Vol] 9 mmol/L Normal 9-18 [facility] Comment on above: Order Comment: Speci men Type: BLOOD SPECIMEN [facility] Address: [address] [place] [address] Performed By: #### 2 4323-8, 92445-5, 2275-4, 2283-8 #### [facility] CLIA [id number] [facility] [place] [address] [place] AST [Catalytic activity/Vol] 17 U/L Normal 13-35 [facility] Comment on above: Order Comment: Speci men Type: BLOOD SPECIMEN [facility] Address: [address] [place] [address] Performed By: #### 2 4323-8, 44558-9, 2275-4, 2283-8 #### [facility] CLIA [id number] [address] [place] [address] [place] Bilirubin [Mass/Vol] 0.4 mg/dL Normal 0.2-1.3 [facility] Comment on above: Order Comment: Speci men Type: BLOOD SPECIMEN [facility] Address: [address] [place] [address] Performed By: #### 2 4323-8, 97930-8, 2275-4, 2283-8 #### [facility] CLIA [id number] [address] [place] [address] [place] Calcium [Mass/Vol] 10.0 mg/dL Normal 8.5-10.2 [facility] Comment on above: Order Comment: Speci men Type: BLOOD SPECIMEN [facility] Address: [address] [place] [address] Performed By: #### 2 4323-8, 43119-6, 4, 8 #### [facility] CLIA [id number] [address] [place] [address] [place] Chloride [Moles/Vol] 107 mmol/L High 97-105 [facility] Comment on above: Order Comment: Speci men Type: BLOOD SPECIMEN [facility] Address: [address] [place] [address] Performed By: #### 2 4323-8, 58403-4, 2275-4, 8 #### [facility] CLIA [id number] [address] [place] [address] [place] CO2 [Moles/Vol] 28 mmol/L Normal 22-30 [facility] Comment on above: Order Comment: Speci men Type: BLOOD SPECIMEN [facility] Address: [address] [place] [address] Performed By: #### 2 4323-8, 43515-1, 2275-4, 2283-8 #### [facility] CLIA [id number] [address] [place] [address] [place] [facility] Creatinine [Mass/Vol] 0.63 mg/dL Normal 0.58-0.96 [facility] Comment on above: Order Comment: Ciara levine Type: BLOOD SPECIMEN [facility] Address: [address] [place] [id number] Performed By: #### 2 4323-8, 41947-5, 6-4, 2283-8 #### [facility] CLIA [id number] [address] [place] [address] [place] ESTIMATED GLOMERULAR FILTRATION RATE 98 mL/min/1.73m??? Normal >=60 [facility] Comment on above: Order Comment: Ciara levine Type: BLOOD SPECIMEN [facility] Address: [address] [place] [address] Result Comment: Letty mated Glomerular Filtration Rate (eGFR) is calculated using the 2020 CKD-EPI creatinine equation. This equation utilizes serum creatinine, sex, and age as parameters. The creatinine assay has traceable calibration to isotope dilution-mass spectrometry. Refer to KDIGO guidelines for clinical interpretation. In patients with unstable renal function, e.g. those with acute kidney injury, the eGFR may not accurately reflect actual GFR. Performed By: #### 2 4323-8, 08941-8, 6-4, 2283-8 #### [facility] CLIA [id number] [address] [place] [address] [place] Glucose [Mass/Vol] 92 mg/dL Normal 74-99 [facility] Comment on above: Order Comment: Ciara levine Type: BLOOD SPECIMEN [facility] Address: [address] [place], [place] [address] Result Comment: The [place] Diabetes Association (ADA) provides guidance for cutoff values for fasting glucose and random glucose. The ADA defines fasting as no caloric intake for at least 8 hours. Fasting plasma glucose results between 100 to 125 mg/dL indicate increased risk for diabetes (prediabetes). Fasting plasma glucose results greater than or equal to 126 mg/dL meet the criteria for diagnosis of diabetes. In the absence of unequivocal hyperglycemia, results should be confirmed by repeat testing. In a patient with classic symptoms of hyperglycemia or hyperglycemic crisis, random plasma glucose results greater than or equal to 200 mg/dL meet the criteria for diagnosis of diabetes. Reference: Standards of Medical Care in Diabetes 2016, [place] [employer]. Diabetes Care. 2016.39(Suppl 1). Performed By: #### 2 4323-8, 41506-2, 2275-4, 2283-8 #### [facility] CLIA [id number] [address] [place] [address] [place] [place] Potassium [Moles/Vol] 4.7 mmol/L Normal 3.7-5.1 [facility] Comment on above: Order Comment: Ciara levine Type: BLOOD SPECIMEN Ordering Facility: [facility] Address: [address] [place] [address] Performed By: #### 2 4323-8, 07129-8, 2275-4, 8 #### [facility] CLIA [id number] [address] [place] [address] [place] Protein [Mass/Vol] 7.4 g/dL Normal 6.3-8.0 [facility] Comment on above: Order Comment: Ciara levine Type: BLOOD SPECIMEN Ordering Facility: [facility] Address: [address] [place] [address] Performed By: #### 2 4323-8, 07571-9, 2275-4, 8 #### [facility] CLIA [id number] [address] [place] [address] [place] Sodium [Moles/Vol] 144 mmol/L Normal 136-144 [facility] Comment on above: Order Comment: Ciara levine Type: BLOOD SPECIMEN Ordering Facility: [facility] Address: [address] [place] [address] Performed By: #### 2 4323-8, 01421-8, 2275-4, 8 #### [facility] CLIA [id number] [address] [place] [address] [place] Urea nitrogen [Mass/Vol] 8 mg/dL Normal 7-21 [facility] Comment on above: Order Comment: Speci men Type: BLOOD SPECIMEN Ordering Facility: [facility] Address: [address] [place] [address] Performed By: #### 2 4323-8, 46577-6, 2275-4, 8 #### [facility] CLIA [id number] [address] [place] [address] [place] Ferritin SerPl-mCncon 2022 Ferritin [Mass/Vol] 265.0 ng/mL High 14.7-205.1 [facility] Comment on above: Order Comment: Speci men Type: BLOOD SPECIMENOrdering Facility: [facility] Address: [address] [place] [address] Performed By: #### 1 9123-9, 6-4, 3024-7, 3016-3 ####[facility] [id number] [place] [address] [place] Iron and Iron binding capaci ty panelon 07-20-2022 Iron [Mass/Vol] 99 ug/dL Normal 41-186 [facility] Comment on above: Order Comment: Speci men Type: BLOOD SPECIMEN Ordering Facility: [facility] Address: [address] [place], [place] [address] Performed By: #### 2 4323-8, 72255-3, 2275-4, 8 #### [facility] CLIA [id number] [address] [place] [address] [place] Iron binding capacity [Mass/Vol] 303 ug/dL Normal 232-386 [facility] Comment on above: Order Comment: Speci men Type: BLOOD SPECIMEN Ordering Facility: [facility] Address: [address] [place], [place] [address] Performed By: #### 2 4323-8, 43880-6, 2275-08, 2283-12 #### [facility] CLIA [id number] [address] [place] [address] [place] Iron/TIBC [Molar ratio] 32.7 % Normal 15.0-57.0 [facility] Comment on above: Order Comment: Speci men Type: BLOOD SPECIMEN Ordering Facility: [facility] Address: [address] [place] [address] Performed By: #### 2 4323-8, 03650-8, 2275-08, 2283-12 #### [facility] CLIA [id number] [address] [place] [address] [place] Lipid 1996 panelon 3 Cholesterol [Mass/Vol] 213 mg/dL High <200 [facility] Comment on above: Order Comment: Speci men Type: BLOOD SPECIMEN Ordering Facility: [facility] Address: [address] [place], [place] [address] Result Comment: <200 mg/dL, Desirable 200-239 mg/dL, Borderline high >239 mg/dL, High Performed By: #### 2 4323-8, 09180-6, 2275-08, 2283-12 #### [facility] CLIA [id number] [address] [place] [address] [place] Cholesterol in HDL [Mass/Vol] 73 mg/dL Normal >39 [facility] Comment on above: Order Comment: Speci men Type: BLOOD SPECIMEN Ordering Facility: [facility] Address: [address] [place], [place] [id number] Result Comment: 40-5 9 mg/dL, Acceptable >59 mg/dL, High: Negative risk factor for coronary heart disease <40 mg/dL, Low: Positive risk factor for coronary heart disease Performed By: #### 2 4323-8, 85163-2, 2275-08, 2283-12 #### [facility] CLIA [id number] [address] [place] [address] [place] Cholesterol in LDL [Mass/Vol] 129 mg/dL High <100 [facility] Comment on above: Order Comment: Ciara levine Type: BLOOD SPECIMEN Ordering Facility: [facility] Address: [address] [place] [address] Result Comment: <100 mg/dL, Optimal 100-129 mg/dL, Near optimal/above optimal 130-159 mg/dL, Borderline high 160-189 mg/dL, High >189 mg/dL, Very high Secondary prevention optimal LDL Cholesterol levels are recommended to be < 70 mg/dL Performed By: #### 2 4323-8, 95933-6, 2275-4, 2283-8 #### [facility] CLIA [id number] [address] [place] [address] [place] Cholesterol in LDL/Cholesterol in HDL [Mass ratio] 1.77 {ratio} Normal <2.54 [facility] Comment on above: Order Comment: Ciara levine Type: BLOOD SPECIMEN Ordering Facility: [facility] Address: [address] [place] [address] Result Comment: Refe rence: 1. National Cholesterol Education Program ATP III Guideline At-A-Glance Quick Desk Reference: National Heart, Lung, and Blood Harvey. National Institutes of Health. 2001: NIH Publication No. 01-3305. 2. An International Atherosclerosis Society position paper: global recommendations for the management of dyslipidemia: executive summary, Atherosclerosis. 2014: 232(2):410-413. Performed By: #### 2 4323-8, 87485-4, 2275-4, 2283-8 #### [facility] CLIA [id number] [address] [place] [address] [place] Cholesterol in VLDL [Mass/Vol] 11 mg/dL Normal <30 [facility] Comment on above: Order Comment: Ciara levine Type: BLOOD SPECIMEN Ordering Facility: [facility] Address: [address] [place] [address] Performed By: #### 2 4323-8, 55015-6, 2275-4, 2283-8 #### [facility] CLIA [id number] [address] [place] [id number] [place] Cholesterol non HDL [Mass/Vol] 140 mg/dL High <130 [facility] Comment on above: Order Comment: Speci men Type: BLOOD SPECIMEN Ordering Facility: [facility] Address: [address] [place] [id number] Result Comment: <130 mg/dL, Optimal 130-159 mg/dL, Near optimal/above optimal 160-189 mg/dL, Borderline high 190-219 mg/dL, High >219 mg/dL, Very high Secondary prevention optimal non HDL Cholesterol levels are recommended to be <100 mg/dL Performed By: #### 2 4323-8, 93487-1, 6-4, 2283-8 #### [facility] CLIA [id number] [facility] [place] [address] [place] Cholesterol.total/C holesterol in HDL [Mass ratio] 2.92 {ratio} Normal <5.10 [facility] Comment on above: Order Comment: Speci men Type: BLOOD SPECIMEN Ordering Facility: [facility] Address: [address] [address] Performed By: #### 2 4323-8, 59276-0, 2275-4, 2283-8 #### [facility] CLIA [id number] [facility] [place] [address] [place] FASTING TIME 12 hrs Normal [facility] Comment on above: Order Comment: Speci men Type: BLOOD SPECIMEN Ordering Facility: [facility] Address: [address] [place] [id number] Performed By: #### 2 4323-8, 63195-2, 2275-4, 2283-8 #### [facility] CLIA [id number] [address] [place] [address] [place] Triglyceride [Mass/Vol] 54 mg/dL Normal <150 [facility] Comment on above: Order Comment: Speci men Type: BLOOD SPECIMEN Ordering Facility: [facility] Address: [address] [place], [place] [phone] Result Comment: <150 mg/dL, Normal 150-199 mg/dL, Borderline high 200-499 mg/dL, High >499 mg/dL, Very high Performed By: #### 2 4323-8, 84330-3, 2275-4, 8 #### [facility] CLIA [id number] [address] [place] [address] [place] Magnesium SerPl-mCncon 07-20 Magnesium [Mass/Vol] 2.4 mg/dL High 1.7-2.3 [facility] Comment on above: Order Comment: Speci men Type: BLOOD SPECIMEN Ordering Facility: [facility] Address: [address] [place] [address] Performed By: #### 2 4323-8, 64948-9, 2275-4, 8 #### [facility] CLIA [id number] [address] [place] [address] [place] T3Free SerPl-mCncon 07-21-19 23 Free T3 [Mass/Vol] 7.4 pg/mL High 2.3-4.1 [facility] Comment on above: Order Comment: Speci men Type: BLOOD SPECIMEN Ordering Facility: [facility] Address: [address] [place] [address] Performed By: #### 2 4323-8, 83438-5, 4, 8 #### [facility] CLIA [id number] [address] [place] [address] [place] T4 Free SerPl-mCncon 023 Free T4 [Mass/Vol] 1.3 ng/dL Normal 0.9-1.7 [facility] Comment on above: Order Comment: Speci men Type: BLOOD SPECIMENOrdering Facility: [facility] Address: [address] [place] [address] Performed By: #### 1 9123-9, 2275-4, 3024-7, 3016-3 ####[facility] [id number] [place] [id number] [place] TSH SerPl-aCncon 07-20-2022 TSH Qn 1.280 m[IU]/L Normal 0.270-4.200 [facility] Comment on above: Order Comment: Speci men Type: BLOOD SPECIMENOrdering Facility: [facility] Address: [address] [place] [address] Performed By: #### 1 9123-9, 6-4, 3024-7, 3016-3 ####[facility] [id number] [place] [address] [place] VITAMIN Con 07-20-2022 VITAMIN C 59 umol/L Normal 23-114 [facility] Comment on above: Order Comment: Speci men Type: BLOOD SPECIMEN Ordering Facility: [facility] Address: [address] [place] [address] Result Comment: INTE RPRETIVE DATA: Vitamin C (Ascorbic Acid), Plasma Vitamin C concentrations lower than 11 umol/L indicate deficiency. Concentrations between 11 and 23 umol/L are consistent with a moderate risk of deficiency due to inadequate tissue stores. Vitamin C concentration is reported as micromoles per liter (umol/L). To convert concentration to milligrams per deciliter (mg/dL), multiply the result by 0.0176. This test was developed and its performance characteristics determined by [employer]. It has not been cleared or approved by the US Food and Drug Administration. This test was performed in a CLIA certified laboratory and is intended for clinical purposes. Performed By: [facility] [address] [place] [address] Physical Therapist Center Manager: Steve Rios MD, PhD Performed By: #### 2 4323-8, 38992-7, 6-4, 2283-8 #### [facility] CLIA [id number] [address] [place] [address] [place] Vit B12 SerPl-mCncon 023 Cobalamin (Vitamin B12) [Mass/Vol] 1429 pg/mL High 232-1245 [facility] Comment on above: Order Comment: Speci men Type: BLOOD SPECIMEN Ordering Facility: [facility] Address: [address] [place] [address] Performed By: #### 2 4323-8, 12871-4, 2276-4, 2284-8 #### [facility] CLIA [id number] [address] [facility] [id number] [address] [facility] CNOVon 07-19-2022 CNOV Office Visit (FAMPWS ) TEEHENRY J ([id number]) 1955 F Date Time Provider Department 07/19/22 9:00 AM SHIN ARIAS FAMPWS During your visit today, we recorded the following information about you: Temperature Pulse Respiration Blood pressure 98.5 degrees 72/minute 16/minute 138/82 Weight 59.9 kg Shin Arias DO 07/19/2022 5:20 PM Signed CC: Henry Oliveira is a 66 year old female who presents to the office for follow up HPI: Right ankle and foot pain, was told needs to wear a Boot then x-rays then likely brace for right ankle tendinitis, seen by Supervisor [employer], no surgery needed at this time. Going to have metal fillings removed from her mouth. Feels that this is affecting her health Mood, feels she is managing well with being off the Prozac medication, doesn't feel she needs anything at this time. Has good foundation with scientologist and scientologist friends as well. Hypothyroidism, taking her armour thyroid medication, cost is expensive, doesn't want to be on synthetic medication. Hair is thinning, + chronic fatigue + shortness of breath, mostly at scientologist when she is trying to sing or when trying to take a deep breath feels she is unable. No known wheezing or cough or chest pressure or pain. No fevers or chills. No sputum PAST MEDICAL HISTORY Diagnosis Date Abnormal glandular Papanicolaou smear of cervix Abn. Pap smear (cervix) Asymptomatic varicose veins Depressive disorder, not elsewhere classified 09/27/2006 Hearing decreased Hyperlipidemia Hypothyroidism 2010 HERNAN on CPAP DME [facility] Peripheral vascular disease, unspecified (HCC) varicose veins Sleep apnea CPAP Supraspinatus tendon tear 04/03/2012 right shoulder Vitamin B12 deficiency Vitamin D deficiency 10/30/2013 PAST SURGICAL HISTORY Procedure Laterality Date COLPOSCOPY CERVIX UPPER/ADJACENT VAGINA Colposcopy CORRECT BUNION,SIMPLE 01-31-12 Bunion, left DILATION AND CURETTAGE DXAND/THER NONOBSTETRIC 1980s Dilation AND curettage LIG/TRNSXJ FLP TUBE ABDL/VAG APPR UNI/BI COMPLETE Tubal ligation PAST SURGICAL HISTORY OF 11/2003 breast biopsy right, benign PAST SURGICAL HISTORY OF 1997 wrist surgery - after fracture, right PAST SURGICAL HISTORY OF 06/28/13 arthroscopy with open rotator cuff repair Current Outpatient Medications Medication Sig omega 8-ons-ren-fish oil (FISH OIL) 100-160-1,000 mg cap Take 1 capsule by mouth. ARMOUR THYROID 90 mg tablet Take 1 tablet by mouth daily before breakfast. traZODone (DESYREL) 50 mg tablet TAKE 1 TO 2 TABLETS AT BEDTIME FOR SLEEP selenium 200 mcg cap Take by mouth. zinc sulfate (ZINC-15 ORAL) Take by mouth. cyclobenzaprine (FLEXERIL) 10 mg tablet Take 1 tablet by mouth three times daily as needed for muscle spasm. CPAP Initiate CPAP @ 6 cm of water with humidification. Mask (per patient preference) optional chin strap (if indicated) , filters, tubing, humidifier and lifetime supplies. L-LYSINE ORAL Take 1 capsule by mouth once daily. dextroamphetamine-amph etamine (ADDERALL) 10 mg tablet Take 0.5-1 tablets by mouth once daily for 30 days. vitamin B complex (B COMPLEX ORAL) Take 1 tablet by mouth once daily. aspirin 325 mg tablet Take 1 tablet by mouth once daily. (Patient not taking: Reported on 06/06/2022) Thyroid, Pork, (NATURE-THROID) 195 mg tab 1 tablet PO daily in the morning cyclobenzaprine (FLEXERIL) 10 mg tablet Take 1 tablet by mouth three times daily as needed for Muscle Spasm. (Patient not taking: Reported on 06/06/2022) triamcinolone acetonide (KENALOG) 0.1 % cream Apply 1 application to affected area twice daily as needed. Apply sparingly to area for rash/itching. Cholecalciferol, Vitamin D3, 5,000 unit cap Take 1 capsule by mouth once daily. ascorbic acid, vitamin C, (VITAMIN C) 500 mg tablet Take 1 tablet by mouth three times daily. PROPYLENE GLYCOL/PEG 400 (BLINK TEARS LUBRICATING) Eye Drops Use 1 Drop in both eyes four times daily. Aspirin 81 mg Tab Take 4 tablets by mouth one time only for 1 dose. Current Facility-Administered Medications Medication Dose Route Frequency perflutren lipid microspheres 1.3 mL in NaCl (PF) 0.9% 10 mL injection (DEFINITY) INTRAVENOUS DIRECTED PRN sodium chloride 0.9 % (flush) 10 mL (BD POSIFLUSH) 10 mL INTRAVENOUS DIRECTED PRN ALLERGIES Allergen Reactions Bactrim [Sulfametho* Hives Morphine Sulfate Itching Tea Tree Oil Rash Social History Tobacco Use Smoking status: Former Packs/day: 1.00 Years: 15.00 Pack years: 15.00 Types: Cigarettes Quit date: 02/12/1987 Years since quittin.4 Smokeless tobacco: Never Vaping Use Vaping Use: Never used Substance Use Topics Alcohol use: No Drug use: No ROS: See HPI PE: BP 138/82 Pulse 72 Temp (Src) 98.5 (Left Tympanic) Resp 16 Wt 132 lb (59.9kg) LMP 10/13/2006 Gen: AANDOX3, NAD, non-toxic a (more content not included)... Normal [facility] 07-19-2022 [facility] HENRY OLIVEIRA ([id number]) 1955 F Date Time Provider Department 07/19/22 SHIN ARIAS [facility] During your visit today, we recorded the following information about you: Neri Robles LPN 07/19/2022 3:18 PM Signed Pt calling office to request a 1 month supply of [employer] thyroid to be sent to [facility]. in [place]. Rx pending. Please review and advise. Neri Gustafson APRN.[facility] 07/21/2022 2:21 PM Signed The following approved medication requests have been transmitted electronically. Requested Prescriptions Signed Prescriptions Disp Refills ARMOUR THYROID 90 mg tablet 30 tablet 0 Sig: Take 1 tablet by mouth once daily. Authorizing Provider: JOSSY GUSTAFSON APRN.[facility] 07/21/2022 3:49 PM Signed Sent Biz[employer] message [facility] Allergies As of Date: 07/19/2022 Noted Allergy Reaction BACTRIM (SULFAMETHOXAZOLE) 05/23/2014 4 - Hives MORPHINE SULFATE 03/30/2005 9 - Itching TEA TREE OIL 07/22/2009 2 - Rash Date Reviewed: 06/06/2022 Reviewed by: Jossy Gustafson APRN.BANK OPERATIONS OFFICER - Fully Assessed Reason for Visit: Medication Question [1478] Order(s):ARMOUR THYROID 90 mg tabletTake 1 tablet by mouth once daily.Disp: 30 tabletRfl: 0 Prescriptions as of 07/21/2022 - ARMOUR THYROID 90 mg tablet Take 1 tablet by mouth once daily. - dextroamphetamine-amph etamine (ADDERALL) 10 mg tablet Take 0.5-1 tablets by mouth once daily for 30 days. - omega 8-tpe-hna-fish oil (FISH OIL) 100-160-1,000 mg cap Take 1 capsule by mouth. - ARMOUR THYROID 90 mg tablet Take 1 tablet by mouth daily before breakfast. - traZODone (DESYREL) 50 mg tablet TAKE 1 TO 2 TABLETS AT BEDTIME FOR SLEEP - selenium 200 mcg cap Take by mouth. - zinc sulfate (ZINC-15 ORAL) Take by mouth. - cyclobenzaprine (FLEXERIL) 10 mg tablet Take 1 tablet by mouth three times daily as needed for muscle spasm. - CPAP Initiate CPAP @ 6 cm of water with humidification. Mask (per patient preference) optional chin strap (if indicated) , filters, tubing, humidifier and lifetime supplies. - vitamin B complex (B COMPLEX ORAL) Take 1 tablet by mouth once daily. - L-LYSINE ORAL Take 1 capsule by mouth once daily. - aspirin 325 mg tablet Take 1 tablet by mouth once daily. - Thyroid, Pork, (NATURE-THROID) 195 mg tab 1 tablet PO daily in the morning - cyclobenzaprine (FLEXERIL) 10 mg tablet Take 1 tablet by mouth three times daily as needed for Muscle Spasm. - triamcinolone acetonide (KENALOG) 0.1 % cream Apply 1 application to affected area twice daily as needed. Apply sparingly to area for rash/itching. - Cholecalciferol, Vitamin D3, 5,000 unit cap Take 1 capsule by mouth once daily. - ascorbic acid, vitamin C, (VITAMIN C) 500 mg tablet Take 1 tablet by mouth three times daily. - PROPYLENE GLYCOL/PEG 400 (BLINK TEARS LUBRICATING) Eye Drops Use 1 Drop in both eyes four times daily. - Aspirin 81 mg Tab Take 4 tablets by mouth one time only for 1 dose. Facility-Administered Medications as of 07/21/2022 - perflutren lipid microspheres 1.3 mL in NaCl (PF) 0.9% 10 mL injection (DEFINITY) - sodium chloride 0.9 % (flush) 10 mL (BD POSIFLUSH) Meds Comments as of 08/09/2021: .rxe Problem List As Of Date 07/19/2022 Noted Resolved DEPRESSIVE DISORDER NEC [F32.89] 09/27/2006 09/19/2008 SPRAIN OF NECK [S13.9XXA] 10/11/2006 06/28/2007 CERVICALGIA [M54.2] 11/13/2006 06/28/2007 ANXIETY STATE NOS [F41.1] 12/12/2006 09/19/2008 Asymptomatic varicose veins [I83.90] Adjustment disorder with mixed anxiety and depr*09/19/2008 11/30/2015 Dyslipidemia [E78.5] 11/08/2010 Chronic low back pain [M54.50, G89.29] 11/08/2010 Degenerative joint disease [M19.90] 11/08/2010 Metatarsalgia [M77.40] 09/02/2011 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] 09/02/2011 Other hammer toe (acquired) [M20.40] 09/02/2011 Hallux valgus (acquired) [M20.10] 09/02/2011 Traumatic tear of right rotator cuff [S46.011A] 05/03/2012 11/11/2013 Rotator cuff (capsule) sprain [S43.429A] 05/23/2012 11/11/2013 Insomnia [G47.00] 12/27/2012 Anxiety [F41.9] 12/27/2012 Depression [F32.A] 02/08/2013 Vitamin D deficiency [E55.9] 10/30/2013 Pain in joint, shoulder region [M25.519] 11/04/2013 11/30/2015 HERNAN (obstructive sleep apnea) [G47.33] 05/23/2014 Excessive daytime sleepiness [G47.19] 05/23/2014 Hypothyroidism [E03.9] 10/27/2014 Atypical nevus of shoulder [D22.60] 09/16/2015 Atypical nevus of back [D22.5] 09/16/2015 Vitreous floaters of both eyes [H43.393] 02/23/2016 Dry eye syndrome [H04.129] 02/23/2016 Encounter for screening mammogram for malignant*03/31/2016 Acute bilateral low back pain with right-sided *11/01/2016 Somatic dysfunction of pelvic region [M99.05] 11/01/2016 Somatic dysfunction of lumbar region [M99.03] 11/01/2016 Acute back pain with sciatica [M54.40] 12/05/2016 Situational stress [F43.9] (more content not included)... Normal [facility] Hepatic function 2000 panelo n 05-20-2022 Albumin [Mass/Vol] 3.9 g/dL 3.9 - 4.9 g/dL [facility] ALP [Catalytic activity/Vol] 99 U/L 34 - 123 U/L [facility] ALT [Catalytic activity/Vol] 15 U/L 7 - 38 U/L [facility] AST [Catalytic activity/Vol] 21 U/L 13 - 35 U/L [facility] Bilirubin [Mass/Vol] 0.2 mg/dL 0.2 - 1.3 mg/dL [facility] Bilirubin.conjugate d [Mass/Vol] <0.2 mg/dL [facility] Protein [Mass/Vol] 6.6 g/dL 6.3 - 8.0 g/dL [facility] Influenza virus A and B RNA and SARS-CoV-2 (COVID-19) N gene panel TAYLER+probe (Resp)on 05-20-2022 FLUAV RNA TAYLER+probe Ql (Unsp spec) Negative Negative for Influenza A by RT-PCR [facility] FLUBV RNA TAYLER+probe Ql (Unsp spec) Negative Negative for Influenza B by RT-PCR [facility] SARS-CoV-2 (COVID-19) RNA TAYLER+probe Ql (Resp) SARS-CoV-2 (Agent of COVID-19) Not Detected by RT-PCR or equivalent method. Not Detected [facility] CBC W Auto Differential pane l (Bld)on 05-19-2022 Basophils (Bld) [#/Vol] 0.03 10*3/uL <0.11 k/uL [facility] Basophils/100 WBC (Bld) 0.5 % [facility] Differential cell count method Nom (Bld) Auto [facility] Eosinophils (Bld) [#/Vol] 0.08 10*3/uL <0.46 k/uL [facility] Eosinophils/100 WBC (Bld) 1.4 % [facility] Erythrocyte distribution width (RBC) [Ratio] 11.5 % 11.5 - 15.0 % [facility] Hematocrit (Bld) [Volume fraction] 40.3 % 36.0 - 46.0 % [facility] Hemoglobin (Bld) [Mass/Vol] 13.4 g/dL 11.5 - 15.5 g/dL [facility] Immature granulocytes (Bld) [#/Vol] <0.10 k/uL [facility] Immature granulocytes/100 WBC (Bld) 0.3 % [facility] Lymphocytes (Bld) [#/Vol] 1.92 10*3/uL 1.00 - 4.00 k/uL [facility] Lymphocytes/100 WBC (Bld) 33.3 % [facility] MCH (RBC) [Entitic mass] 29.8 pg 26.0 - 34.0 pg [facility] MCHC (RBC) [Mass/Vol] 33.3 g/dL 30.5 - 36.0 g/dL [facility] MCV (RBC) [Entitic vol] 89.6 fL 80.0 - 100.0 fL [facility] Monocytes (Bld) [#/Vol] 0.30 10*3/uL <0.87 k/uL [facility] Monocytes/100 WBC (Bld) 5.2 % [facility] Neutrophils (Bld) [#/Vol] 3.41 10*3/uL 1.45 - 7.50 k/uL [facility] Neutrophils/100 WBC (Bld) 59.3 % [facility] Nucleated RBC (Bld) [#/Vol] <0.01 k/uL [facility] Nucleated RBC/100 WBC (Bld) [Ratio] 0.0 /100 WBC [facility] Platelet mean volume (Bld) [Entitic vol] 10.4 fL 9.0 - 12.7 fL [facility] Platelets (Bld) [#/Vol] 206 10*3/uL 150 - 400 k/uL [facility] RBC (Bld) [#/Vol] 4.50 10*6/uL 3.90 - 5.2 0 m/uL [facility] WBC (Bld) [#/Vol] 5.76 10*3/uL 3.70 - 11. 00 k/uL [facility] XR FOOT LEFT 3 VIEWSon 07-29 XR FOOT LEFT 3 VIEWS EXAM: XR FOOT LEFT 3 VIEWS, 07/29/2021 11:38 AM COMPARISON: No prior studies available for comparison. CLINICAL INDICATIONS: left foot pain RELEVANT CLINICAL HISTORY: M79.671:Bilateral foot pain M79.672:Bilateral foot pain AP/lat/oblique weight bearing; FINDINGS: 3 nonweightbearing images obtained. There is a severe hallux valgus deformity with likely postsurgical changes in the first metatarsal head. There is minimal diffuse interphalangeal joint osteoarthritis. There is fusion at the second PIP joint. More proximally there is an arthrodesis at the first metatarsal tarsal joints which is fused. Hardware is intact. The calcaneal inclination angle is 16 degrees IMPRESSION: Severe hallux valgus deformity with likely partial resection of the first metatarsal head. Prior arthrodesis at the first metatarsal tarsal joint with intact hardware Diffuse interphalangeal joint arthritic changes with likely prior surgery at the second PIP joint [facility] XR FOOT RIGHT 3 VIEWSon 07-13 XR FOOT RIGHT 3 VIEWS EXAM: XR FOOT RIGHT 3 VIEWS, 07/29/2021 11:37 AM COMPARISON: No prior studies available for comparison. CLINICAL INDICATIONS: Right Foot Pain RELEVANT CLINICAL HISTORY: M79.671:Bilateral foot pain M79.672:Bilateral foot pain AP/lat/oblique weight bearing; FINDINGS: 3 nonweightbearing images obtained. Right foot: There is a hallux valgus deformity with first MTP and diffuse interphalangeal joint osteoarthritis. No acute osseous abnormality. In addition there is hammertoe deformity. The calcaneal inclination angle is approximately 17 degrees. IMPRESSION: Hallux valgus deformity with first MTP and diffuse interphalangeal joint osteoarthritis No acute osseous abnormality [facility] XR Foot - left 3 Viewson IMPRESSION: Severe hallux valgus deformity with likely partial resection of the first metatarsal head. Prior arthrodesis at the first metatarsal tarsal joint with intact hardware Diffuse interphalangeal joint arthritic changes with likely prior surgery at the second PIP joint OLOGY EXAM: XR FOOT LEFT 3 VIEWS, 07/29/2021 11:38 AM COMPARISON: No prior studies available for comparison. CLINICAL INDICATIONS: left foot pain RELEVANT CLINICAL HISTORY: M79.671:Bilateral foot pain M79.672:Bilateral foot pain AP/lat/oblique weight bearing; FINDINGS: 3 nonweightbearing images obtained. There is a severe hallux valgus deformity with likely postsurgical changes in the first metatarsal head. There is minimal diffuse interphalangeal joint osteoarthritis. There is fusion at the second PIP joint. More proximally there is an arthrodesis at the first metatarsal tarsal joints which is fused. Hardware is intact. The calcaneal inclination angle is 16 degrees RADIOLOGY Andria Bermudez D O - 07/29/2021 EXAM: XR FOOT LEFT 3 VIEWS, 07/29/2021 11:38 AM COMPARISON: No prior studies available for comparison. CLINICAL INDICATIONS: left foot pain RELEVANT CLINICAL HISTORY: M79.671:Bilateral foot pain M79.672:Bilateral foot pain AP/lat/oblique weight bearing; FINDINGS: 3 nonweightbearing images obtained. There is a severe hallux valgus deformity with likely postsurgical changes in the first metatarsal head. There is minimal diffuse interphalangeal joint osteoarthritis. There is fusion at the second PIP joint. More proximally there is an arthrodesis at the first metatarsal tarsal joints which is fused. Hardware is intact. The calcaneal inclination angle is 16 degrees IMPRESSION IMPRESSION: Severe hallux valgus deformity with likely partial resection of the first metatarsal head. Prior arthrodesis at the first metatarsal tarsal joint with intact hardware Diffuse interphalangeal joint arthritic changes with likely prior surgery at the second PIP joint [facility] Radiology Study observation (narrative) [facility] XR Foot - right 3 Viewson IMPRESSION: Hallux valgus deformity with first MTP and diffuse interphalangeal joint osteoarthritis No acute osseous abnormality OLOGY EXAM: XR FOOT RIGHT 3 VIEWS, 07/29/2021 11:37 AM COMPARISON: No prior studies available for comparison. CLINICAL INDICATIONS: Right Foot Pain RELEVANT CLINICAL HISTORY: M79.671:Bilateral foot pain M79.672:Bilateral foot pain AP/lat/oblique weight bearing; FINDINGS: 3 nonweightbearing images obtained. Right foot: There is a hallux valgus deformity with first MTP and diffuse interphalangeal joint osteoarthritis. No acute osseous abnormality. In addition there is hammertoe deformity. The calcaneal inclination angle is approximately 17 degrees. RADIOLOGY Andria Bermudez D O - 07/29/2021 EXAM: XR FOOT RIGHT 3 VIEWS, 07/29/2021 11:37 AM COMPARISON: No prior studies available for comparison. CLINICAL INDICATIONS: Right Foot Pain RELEVANT CLINICAL HISTORY: M79.671:Bilateral foot pain M79.672:Bilateral foot pain AP/lat/oblique weight bearing; FINDINGS: 3 nonweightbearing images obtained. Right foot: There is a hallux valgus deformity with first MTP and diffuse interphalangeal joint osteoarthritis. No acute osseous abnormality. In addition there is hammertoe deformity. The calcaneal inclination angle is approximately 17 degrees. IMPRESSION IMPRESSION: Hallux valgus deformity with first MTP and diffuse interphalangeal joint osteoarthritis No acute osseous abnormality [facility] Radiology Study observation (narrative) [facility] XR Foot - right 3 ViewsOrder ed By: Andria Bermudez on 07-29-2021 [facility] Work Phone: Vital Signs Date Time Vital Sign Value Performing Clinician Faci lity 01-25-2023 15:35-0400 Body temperature 98.8 [degF] Chris Rendon MD Work Phone: [facility] 01-25-2023 15:35-0400 Body weight 56.25 kg Chris Rendon MD Work Phone: [facility] 01-25-2023 15:35-0400 Diastolic blood pressure 80 mm[Hg] Chris Rendon MD Work Phone: [facility] 01-25-2023 15:35-0400 Heart rate 58 /min Chris Rendon MD Work Phone: [facility] 01-25-2023 15:35-0400 Respiratory rate 16 /min Chris Rendon MD Work Phone: [facility] 01-25-2023 15:35-0400 SaO2% (BldA) [Mass fraction] 98 % Chris Rendon MD Work Phone: [facility] 01-25-2023 15:35-0400 Systolic blood pressure 120 mm[Hg] Chris Rendon MD Work Phone: [facility] 12-26-2022 07:59-0400 Body weight 55.79 kg JOSEFINA Leyva PA-C Work Phone: [facility] 12-26-2022 07:59-0400 Diastolic blood pressure 60 mm[Hg] JOSEFINA Leyva PA-C Work Phone: [facility] 12-26-2022 07:59-0400 Heart rate 67 /min NA Leyva PA-C Work Phone: [facility] 12-26-2022 07:59-0400 Respiratory rate 16 /min NA Leyva PA-C Work Phone: [facility] 12-26-2022 07:59-0400 SaO2% (BldA) [Mass fraction] 97 % NA Leyva PA-C Work Phone: [facility] 12-26-2022 07:59-0400 Systolic blood pressure 110 mm[Hg] NA Leyva PA-C Work Phone: [facility] 11-25-2022 13:59-0400 Body weight 57.61 kg NA Leyva PA-C Work Phone: [facility] 11-25-2022 13:59-0400 Diastolic blood pressure 68 mm[Hg] NA Leyva PA-C Work Phone: [facility] 11-25-2022 13:59-0400 Heart rate 87 /min NA Leyva PA-C Work Phone: [facility] 11-25-2022 13:59-0400 Respiratory rate 16 /min NA Leyva PA-C Work Phone: [facility] 11-25-2022 13:59-0400 SaO2% (BldA) [Mass fraction] 100 % NA Leyva PA-C Work Phone: [facility] 11-25-2022 13:59-0400 Systolic blood pressure 116 mm[Hg] NA Leyva PA-C Work Phone: [facility] 10-19-2022 08:29-0400 Body temperature 98.2 [degF] Shin Arias DO Work Phone: [facility] 10-19-2022 08:29-0400 Body weight 58.51 kg Shin Arias DO Work Phone: [facility] 10-19-2022 08:29-0400 Diastolic blood pressure 74 mm[Hg] Shin Arias DO Work Phone: [facility] 10-19-2022 08:29-0400 Heart rate 64 /min Shin Arias DO Work Phone: [facility] 10-19-2022 08:29-0400 Respiratory rate 16 /min Shin Arias DO Work Phone: [facility] 10-19-2022 08:29-0400 Systolic blood pressure 130 mm[Hg] Shin Arias DO Work Phone: [facility] 08-10-2022 11:05-0400 Body temperature 98.4 [degF] Shin Arias DO Work Phone: [facility] 08-10-2022 11:05-0400 Body weight 58.06 kg Shin Arias DO Work Phone: [facility] 08-10-2022 11:05-0400 Diastolic blood pressure 80 mm[Hg] Shin Arias DO Work Phone: [facility] 08-10-2022 11:05-0400 Heart rate 88 /min Shin Arias DO Work Phone: [facility] 08-10-2022 11:05-0400 Respiratory rate 16 /min Shin Arias DO Work Phone: [facility] 08-10-2022 11:05-0400 Systolic blood pressure 120 mm[Hg] Shin Arias DO Work Phone: [facility] 07-20-2022 09:10-0500 Body height 160.5 cm Pulm Wstr Work Phone: [facility] 07-20-2022 09:10-0500 Body weight 58.06 kg Pulm Wstr Work Phone: [facility] 07-20-2022 09:10-0500 Heart rate 70 /min Pulm Wstr Work Phone: [facility] 07-20-2022 09:10-0500 Respiratory rate 14 /min Pulm Wstr Work Phone: [facility] 07-20-2022 09:10-0500 SaO2% (BldA) [Mass fraction] 99 % Pulm Wstr Work Phone: [facility] 07-19-2022 08:54-0500 Body temperature 98.49 [degF] Shin Arias DO Work Phone: [facility] 07-19-2022 08:54-0500 Body weight 59.88 kg Shin Arias DO Work Phone: [facility] 07-19-2022 08:54-0500 Diastolic blood pressure 82 mm[Hg] Shin Arias DO Work Phone: [facility] 07-19-2022 08:54-0500 Heart rate 72 /min Shin Arias DO Work Phone: [facility] 07-19-2022 08:54-0500 Respiratory rate 16 /min Shin Arias DO Work Phone: [facility] 07-19-2022 08:54-0500 Systolic blood pressure 138 mm[Hg] Shin Arias DO Work Phone: [facility] 06-06-2022 10:10-0500 Body weight 59.33 kg Jossy Gustafson 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.[employer]ANK OPERATIONS OFFICER Work Phone: [facility] 06-06-2022 10:10-0500 Diastolic blood pressure 60 mm[Hg] Jossy Gustafson 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.BANK OPERATIONS OFFICER Work Phone: [facility] 06-06-2022 10:10-0500 Heart rate 62 /min Jossy Gustafson 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.BANK OPERATIONS OFFICER Work Phone: [facility] 06-06-2022 10:10-0500 Respiratory rate 14 /min Jossy Gustafson 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.BANK OPERATIONS OFFICER Work Phone: [facility] 06-06-2022 10:10-0500 Systolic blood pressure 120 mm[Hg] Jossy Gustafson 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.BANK OPERATIONS OFFICER Work Phone: [facility] 05-19-2022 13:35-0500 Body temperature 98.91 [degF] JOSEFINA Leyva PA-C Work Phone: [facility] 05-19-2022 13:35-0500 Body weight 59.42 kg NA Leyva PA-C Work Phone: [facility] 05-19-2022 13:35-0500 Diastolic blood pressure 70 mm[Hg] NA Leyva PA-C Work Phone: [facility] 05-19-2022 13:35-0500 Heart rate 70 /min NA Leyva PA-C Work Phone: [facility] 05-19-2022 13:35-0500 Respiratory rate 14 /min NA Leyva PA-C Work Phone: [facility] 05-19-2022 13:35-0500 SaO2% (BldA) [Mass fraction] 99 % NA Leyva PA-C Work Phone: [facility] 05-19-2022 13:35-0500 Systolic blood pressure 128 mm[Hg] NA Leyva PA-C Work Phone: [facility] 05-10-2022 16:40-0500 Body weight 60.78 kg NA Leyva PA-C Work Phone: [facility] 05-10-2022 16:40-0500 Diastolic blood pressure 58 mm[Hg] NA Leyva PA-C Work Phone: [facility] 05-10-2022 16:40-0500 Heart rate 98 /min NA Leyva PA-C Work Phone: [facility] 05-10-2022 16:40-0500 Respiratory rate 16 /min NA Leyva PA-C Work Phone: [facility] 05-10-2022 16:40-0500 SaO2% (BldA) [Mass fraction] 97 % NA Leyva PA-C Work Phone: [facility] 05-10-2022 16:40-0500 Systolic blood pressure 118 mm[Hg] NA Leyva PA-C Work Phone: [facility] 04-19-2022 09:47-0500 Body temperature 97.81 [degF] Shin Arias DO Work Phone: [facility] 04-19-2022 09:47-0500 Body weight 61.24 kg Shin Arias DO Work Phone: [facility] 04-19-2022 09:47-0500 Diastolic blood pressure 80 mm[Hg] Shin Arias DO Work Phone: [facility] 04-19-2022 09:47-0500 Heart rate 64 /min Shin Arias DO Work Phone: [facility] 04-19-2022 09:47-0500 Respiratory rate 16 /min Shin Arias DO Work Phone: [facility] 04-19-2022 09:47-0500 Systolic blood pressure 138 mm[Hg] Shin Arias DO Work Phone: [facility] 01-21-2022 12:03-0400 Body height 158.8 cm Shin Arias DO Work Phone: [facility] 01-21-2022 12:03-0400 Body temperature 98.2 [degF] Shin Arias DO Work Phone: [facility] 01-21-2022 12:03-0400 Body weight 61.24 kg Shin Arias DO Work Phone: [facility] 01-21-2022 12:03-0400 Diastolic blood pressure 70 mm[Hg] Shin Arias DO Work Phone: [facility] 01-21-2022 12:03-0400 Heart rate 76 /min Shin Arias DO Work Phone: [facility] 01-21-2022 12:03-0400 Respiratory rate 16 /min Shin Arias DO Work Phone: [facility] 01-21-2022 12:03-0400 Systolic blood pressure 120 mm[Hg] Shin Arias DO Work Phone: [facility] 10-22-2021 16:03-0400 Body temperature 98.91 [degF] Shin Arias DO Work Phone: [facility] 10-22-2021 16:03-0400 Body weight 60.78 kg Shin Arias DO Work Phone: [facility] 10-22-2021 16:03-0400 Diastolic blood pressure 60 mm[Hg] Shin Arias DO Work Phone: [facility] 10-22-2021 16:03-0400 Heart rate 64 /min Shin Arias DO Work Phone: [facility] 10-22-2021 16:03-0400 Respiratory rate 16 /min Shin Arias DO Work Phone: [facility] 10-22-2021 16:03-0400 Systolic blood pressure 120 mm[Hg] Shin Arias DO Work Phone: [facility] Encounters Encounter Date Encounter Type Care Provider Facility Start: 06-23-2023 Refill Shin Reavesri son DO Work Phone: Family [facility] Comment on above: Refill Request Start: 06-20-2023 End: 06-20-2023 ambulatory Shin Arias Facility:[facility] Start: 05-17-2023 ambulatory Shin Mckeon Garri son DO Work Phone: Internal Medicine [facility] Start: 05-04-2023 ambulatory Pcp (Historical) [facility] Start: 05-03-2023 End: 05-04-2023 ambulatory SHIN L ARIAS Facility:[facility] Start: 04-11-2023 Refill Shin Reavesri son DO Work Phone: [facility] [place] Comment on above: Refill Request Start: 02-16-2023 Refill Shin Mckeon Garri son DO Work Phone: [facility] [place] Comment on above: Refill Request Start: 01-26-2023 Telephone encounter Lida Garcia APRN.BANK OPERATIONS OFFICER Work Phone: [place] Comment on above: Results Start: 01-25-2023 End: 01-25-2023 ambulatory SHIN L ARIAS Facility:[facility] Start: 01-25-2023 End: 01-25-2023 Patient encounter procedure Chris Rendon MD Work Phone: [facility] Comment on above: Sore throat (Primary Dx); Influenza-like illness Start: 12-26-2022 End: 12-27-2022 ambulatory CARL LEYVA Facility:[facility] Start: 12-26-2022 End: 12-26-2022 Patient encounter procedure Alivia Leyva PA-C Work Phone: [facility] Comment on above: Situational insomnia ; Anxiety with depression Start: 12-24-2022 Refill Shin L Jean Paulri son DO Work Phone: [facility] Comment on above: Refill Request Start: 11-25-2022 End: 11-25-2022 ambulatory CARL LEYVA Facility:[facility] Start: 11-25-2022 End: 11-25-2022 Patient encounter procedure Alivia Leyva PA-C Work Phone: [facility] Comment on above: Adjustment insomnia (Primary Dx); Anxiety with depression; Hx of ischemic vertebrobasilar artery cerebellar stroke Start: 10-19-2022 End: 10-19-2022 ambulatory SHIN L ARIAS Facility:[facility] Start: 10-19-2022 End: 10-19-2022 Patient encounter procedure Shin L Arias DO Work Phone: [facility] [place] Comment on above: Elevated ferritin (P rimary Dx); Rash and nonspecific skin eruption; Elevated alkaline phosphatase level; Dermatitis contact; Hypothyroidism, unspecified type; Dyslipidemia; Mood disorder (HCC); Fatigue, unspecified type; Hyperglycemia Start: 10-14-2022 End: 10-15-2022 ambulatory SHIN L ARIAS Facility:[facility] Start: 10-05-2022 End: 10-06-2022 ambulatory SHIN L ARIAS Facility:[facility] Start: 10-05-2022 End: 10-05-2022 ambulatory SHIN L ARIAS Facility:[facility] Start: 08-10-2022 End: 08-10-2022 ambulatory SHIN L ARIAS Facility:[facility] Start: 08-10-2022 End: 08-10-2022 Patient encounter procedure Shin Arias DO Work Phone: [facility] [place] Comment on above: Dermatitis contact ( Primary Dx); Hypothyroidism, unspecified type Start: 08-09-2022 Telephone encounter Shin steiner DO Work Phone: [facility] Comment on above: Appointment Start: 08-03-2022 Telephone encounter Shin steiner DO Work Phone: [facility] [place] Comment on above: Results Medication Problem Start: 07-29-2022 End: 07-30-2022 ambulatory SHIN ARIAS Facility:[facility] Start: 07-22-2022 Telephone encounter Shin steiner DO Work Phone: [facility] Comment on above: Results Start: 07-20-2022 End: 07-21-2022 ambulatory Pulm [facility] Work Phone: PULM [facility] Comment on above: Spirometry Start: 07-20-2022 End: 07-20-2022 Patient encounter procedure [facility] Work Phone: [place] [facility] [place] Start: 07-19-2022 Telephone encounter Shin steiner DO Work Phone: [facility] [place] Comment on above: Medication Question Start: 07-19-2022 End: 07-19-2022 ambulatory SHIN ARIAS Facility:[facility] Start: 07-19-2022 End: 07-19-2022 Patient encounter procedure Shin Arias DO Work Phone: [facility] Comment on above: Dyslipidemia (Primar y Dx); Hair thinning; Fatigue, unspecified type; Tendinitis of right ankle; SOB (shortness of breath); Hypothyroidism, unspecified type; Screening for colon cancer; Concentration deficit; Anxiety with depression Start: 06-21-2022 Refill Shin ortiz DO Work Phone: [facility] Comment on above: Refill Request Start: 06-17-2022 Refill Shin ortiz DO Work Phone: [facility] [place] Comment on above: Refill Request Start: 06-07-2022 Telephone encounter Jossy ortiz 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.BANK OPERATIONS OFFICER Work Phone: [facility] Comment on above: Results Start: 06-06-2022 End: 06-06-2022 Patient encounter procedure Jossy Gustafson 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.BANK OPERATIONS OFFICER Work Phone: [facility] Comment on above: Right ankle swelling (Primary Dx); Encounter for screening for osteoporosis; Encounter for screening mammogram for malignant neoplasm of breast Start: 05-19-2022 End: 05-19-2022 Patient encounter procedure Alivia Thien Gordon NIXON Work Phone: [facility] Comment on above: Flu-like symptoms (P rimary Dx); Elevated alkaline phosphatase level Start: 05-17-2022 Refill Shin ortiz DO Work Phone: [facility] Comment on above: Refill Request Start: 05-11-2022 Telephone encounter Shin steiner DO Work Phone: [facility] Comment on above: requesting orders fo r stress test Start: 05-10-2022 End: 05-10-2022 Refill Shin Arias DO Work Phone: [facility] Comment on above: Refill Request Vasovagal symptom (P rimary Dx); Elevated alkaline phosphatase level; Hypothyroidism, unspecified type; Hyperglycemia; Mood disorder (HCC); Anxiety with depression; Hx of ischemic vertebrobasilar artery cerebellar stroke; Occlusion and stenosis of right vertebral artery; Stenosis of left vertebral artery Start: 05-03-2022 Telephone encounter Shin steiner DO Work Phone: [facility] Comment on above: Results; Appointment Start: 04-19-2022 End: 04-19-2022 Patient encounter procedure Shin Arias DO Work Phone: [facility] Comment on above: Vitamin B12 deficien cy (Primary Dx); Vitamin D deficiency; Dyslipidemia; Hypothyroidism, unspecified type; Elevated alkaline phosphatase level; Chronic right shoulder pain; Chronic pain of right ankle Start: 03-15-2022 Refill Shin ortiz DO Work Phone: [facility] [place] Comment on above: Refill Request Start: 01-21-2022 End: 01-21-2022 Patient encounter procedure Shin Arias DO Work Phone: [facility] [place] Comment on above: Age-related cataract of both eyes, unspecified age-related cataract type (Primary Dx); Double vision; Vitamin B12 deficiency; Vitamin D deficiency; Hypothyroidism, unspecified type; Dyslipidemia; Hyperglycemia; Anxiety with depression Start: 01-19-2022 Refill Shin ortiz DO Work Phone: [facility] [place] Comment on above: Refill Request Start: 12-31-2021 Refill Jossy Tri k 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.BANK OPERATIONS OFFICER Work Phone: [facility] [place] Comment on above: Refill Request Start: 11-25-2021 Refill Shin ortiz DO Work Phone: [facility] [place] Comment on above: Refill Request Start: 11-10-2021 ambulatory Shin ortiz DO Work Phone: [facility] [place] Start: 10-22-2021 End: 10-22-2021 Patient encounter procedure Shin Arias DO Work Phone: [facility] [place] Comment on above: Anxiety with depress ion (Primary Dx); Mood disorder (HCC); Concentration deficit; Hypothyroidism, unspecified type; Vitamin B12 deficiency; Vitamin D deficiency; Fatigue, unspecified type; Dyslipidemia Start: 10-08-2021 Refill Shin ortiz DO Work Phone: [facility] Comment on above: Refill Request Start: 09-06-2021 Refill Shin ortiz DO Work Phone: [facility] [place] Comment on above: Refill Request Start: 08-09-2021 Refill Jossysilvia Suarezc k 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.BANK OPERATIONS OFFICER Work Phone: [facility] [place] Start: 07-29-2021 ambulatory SAID A ATWAY Facility:[facility] Start: 07-29-2021 End: 07-29-2021 Office outpatient new 30 minutes Said A Atway DPM Work Phone: [facility] [place] Comment on above: Bilateral foot pain (Primary Dx) Start: 07-22-2021 ambulatory SHIN Garay ity:[facility] Start: 06-28-2021 Telephone encounter Shin steiner DO Work Phone: [facility] Comment on above: Medication Problem Start: 07-25-2018 Patient encounter status Aleah kimi Chahal 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.BANK OPERATIONS OFFICER Work Phone: [facility] Work Phone: Start: 08-17-2017 Ambulatory SHIN SCHWARTZ Facil ity:[facility] Procedures Date Procedure Procedure Detail Performing Clinician Start: 01-25-2023 COVID & INFLUENZA A/ B NAAT, ROUTINE Chris Rendon MD Work Phone: Start: 01-25-2023 STREP A MOLECULAR (POC) Latanya Seaman PAKristenC Work Phone: Start: 10-14-2022 Lipid 1996 panel - S zen or Plasma Chris Rendon MD Work Phone: Start: 07-20-2022 Brncdilat rspse spmt ry pre&post-brncdilat admn Shin Arias DO Work Phone: Start: 05-19-2022 COVID WITH FLUA+B, ROUTINE M Thien Leyva PAKristenC Work Phone: Start: 11-20-2018 Mammography Jossywhitney murray 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.BANK OPERATIONS OFFICER Work Phone: Start: 10-01-2018 Lipid 1996 panel - S zen or Plasma Said Atway DPM Work Phone: Plan of Treatment Date Care Activity Detail Author Start: 10-22-2029 Urine microalbumin profile DTa P,Tdap,Td Vaccine (3 - Td or Tdap) [facility] Start: 10-15-2027 Lipid 1996 panel - S zen or Plasma Lipid Screening [facility] Start: 10-15-2027 Lipid panel Lipid Screening [facility] Start: 10-15-2027 LIPID SCREEN LIPID SCREEN [facility] Start: 07-21-2027 LIPID SCREEN LIPID SCREEN [facility] Start: 04-19-2027 LIPID SCREEN LIPID SCREEN [facility] Start: 01-28-2027 LIPID SCREEN LIPID SCREEN [facility] Start: 10-26-2026 LIPID SCREEN LIPID SCREEN [facility] Start: 06-30-2026 LIPID SCREEN LIPID SCREEN [facility] Start: 10-14-2025 DIABETES SCREEN DIABETES SCREEN [facility] Start: 10-14-2025 Diabetes Screening Diabetes Screenin g [facility] Start: 07-20-2025 DIABETES SCREEN DIABETES SCREEN [facility] Start: 04-19-2025 DIABETES SCREEN DIABETES SCREEN [facility] Start: 01-28-2025 DIABETES SCREEN DIABETES SCREEN [facility] Start: 10-26-2024 DIABETES SCREEN DIABETES SCREEN [facility] Start: 06-30-2024 DIABETES SCREEN DIABETES SCREEN [facility] Start: 05-03-2024 Annual PCP Team Money [employer]er paulie Disease Visit Annual PCP Team Chronic Disease Visit [facility] Start: 05-03-2024 Covid-19 Vaccine (#1) Covid-19 Vacci ne (#1) [facility] Comment on above: Postponed from 03/12 (Declined at this time) Start: 12-27-2023 ANNUAL PCP TEAM BLOWER INSTALLER PAULIE DISEASE VISIT ANNUAL PCP TEAM CHRONIC DISEASE VISIT [facility] Start: 11-26-2023 ANNUAL PCP TEAM BLOWER INSTALLER PAULIE DISEASE VISIT ANNUAL PCP TEAM CHRONIC DISEASE VISIT [facility] Start: 11-12-2023 Influenza vaccination Influenza Vacc ine (#1) [facility] Comment on above: Postponed from 01/13 (Declined at this time) Start: 10-20-2023 ANNUAL PCP TEAM BLOWER INSTALLER PAULIE DISEASE VISIT ANNUAL PCP TEAM CHRONIC DISEASE VISIT [facility] Start: 10-02-2023 Fasting lipid profile LIPID SCREENIN [facility] Start: 08-11-2023 ANNUAL PCP TEAM BLOWER INSTALLER PAULIE DISEASE VISIT ANNUAL PCP TEAM CHRONIC DISEASE VISIT [facility] Start: 07-29-2023 COLORECTAL CANCER SCREENING COLORECTAL CANCER SCREENING [facility] Start: 07-29-2023 FECAL OCCULT BLOOD FECAL OCCULT BLOO D [facility] Start: 07-29-2023 Screening for malign ant neoplasm of colon [facility] Start: 03-07-2024 ANNUAL PCP TEAM BLOWER INSTALLER PAULIE DISEASE VISIT ANNUAL PCP TEAM CHRONIC DISEASE VISIT [facility] Start: 06-06-2023 ANNUAL PCP TEAM BLOWER INSTALLER PAULIE DISEASE VISIT ANNUAL PCP TEAM CHRONIC DISEASE VISIT [facility] Start: 06-06-2023 Pneumococcal Vaccine : 65+ (1 - PCV) Pneumococcal Vaccine: 65+ (1 - PCV) [facility] Comment on above: Postponed from 09/10 (Declined at this time) Start: 06-06-2023 Pneumococcal Vaccine : 65+ (1 of 1 - PCV) Pneumococcal Vaccine: 65+ (1 of 1 - PCV) [facility] Comment on above: Postponed from 09/10 (Declined at this time) Start: 06-06-2023 PNEUMOCOCCAL: 65+ (1 - PCV) PNEUMOCOCCAL: 65+ (1 - PCV) [facility] Comment on above: Postponed from 09/10 (Declined at this time) Start: 06-06-2023 Urine microalbumin profile [facility] Comment on above: Postponed from 08/03 (Declined at this time) Start: 05-19-2023 ANNUAL PCP TEAM BLOWER INSTALLER PAULIE DISEASE VISIT ANNUAL PCP TEAM CHRONIC DISEASE VISIT [facility] Start: 05-10-2023 ANNUAL PCP TEAM BLOWER INSTALLER PAULIE DISEASE VISIT ANNUAL PCP TEAM CHRONIC DISEASE VISIT [facility] Start: 04-19-2023 ANNUAL PCP TEAM BLOWER INSTALLER PAULIE DISEASE VISIT ANNUAL PCP TEAM CHRONIC DISEASE VISIT [facility] Start: 01-21-2023 ANNUAL PCP TEAM BLOWER INSTALLER PAULIE DISEASE VISIT ANNUAL PCP TEAM CHRONIC DISEASE VISIT [facility] Start: 01-21-2023 COVID-19 VACCINE (#1) COVID-19 VACCI NE (#1) [facility] Comment on above: Postponed from 03/12 (Declined at this time) Start: 01-13-2023 Influenza vaccination [facility] Start: 11-11-2022 Influenza vaccination INFLUENZA (#1) [facility] Comment on above: Postponed from 01/13 (Declined at this time) Start: 10-22-2022 ANNUAL PCP TEAM BLOWER INSTALLER PAULIE DISEASE VISIT ANNUAL PCP TEAM CHRONIC DISEASE VISIT [facility] Start: 07-19-2022 End: 09-18-2022 25-hydroxyvitamin D3 [Mass/volume] in Serum or Plasma VITAMIN D 25 HYDROXY Lab Routine Hair thinning Fatigue, unspecified type Expected: 07/19/2022, Expires: 09/18/[address] [facility] Work Phone: Comment on above: Expected: 07/19/2022 , Expires: 09/18/2022 Start: 07-19-2022 End: 09-18-2022 Ascorbate [Mass/volume] in Serum or Plasma VITAMIN C Lab Routine Hair thinning Fatigue, unspecified type Expected: 07/19/2022, Expires: 09/18/[address] [facility] Work Phone: Comment on above: Expected: 07/19/2022 , Expires: 09/18/2022 Start: 07-19-2022 End: 09-18-2022 CBC W Auto Differential panel - Blood CBC + DIFF Lab Routine SOB (shortness of breath) Expected: 07/19/2022, Expires: 09/18/[address] [facility] Work Phone: Comment on above: Expected: 07/19/2022 , Expires: 09/18/2022 Start: 07-19-2022 End: 09-18-2022 Cobalamin (Vitamin B12) [Mass/volume] in Serum or Plasma VITAMIN B12 BLOOD Lab Routine Hair thinning Fatigue, unspecified type Expected: 07/19/2022, Expires: 09/18/[address] [facility] Work Phone: Comment on above: Expected: 07/19/2022 , Expires: 09/18/2022 Start: 07-19-2022 End: 09-18-2022 Comprehensive metabolic 2000 panel - Serum or Plasma COMP METABOLIC PANEL Lab Routine SOB (shortness of breath) Expected: 07/19/2022, Expires: 09/18/[address] [facility] Work Phone: Comment on above: Expected: 07/19/2022 , Expires: 09/18/2022 Start: 07-19-2022 End: 09-18-2022 Ferritin [Mass/volume] in Serum or Plasma FERRITIN BLD Lab Routine SOB (shortness of breath) Expected: 07/19/2022, Expires: 09/18/[address] [facility] Work Phone: Comment on above: Expected: 07/19/2022 , Expires: 09/18/2022 Start: 07-19-2022 End: 09-18-2022 Iron and Iron binding capacity panel - Serum or Plasma IRON + TIBC Lab Routine SOB (shortness of breath) Expected: 07/19/2022, Expires: 09/18/[address] [facility] Work Phone: Comment on above: Expected: 07/19/2022 , Expires: 09/18/2022 Start: 07-19-2022 End: 09-18-2022 Lipid 1996 panel - Serum or Plasma LIPID PANEL BASIC Lab Routine Dyslipidemia Expected: 07/19/2022, Expires: 09/18/[address] [facility] Work Phone: Comment on above: Expected: 07/19/2022 , Expires: 09/18/2022 Start: 07-19-2022 End: 09-18-2022 Magnesium [Mass/volume] in Serum or Plasma MAGNESIUM BLD Lab Routine Hair thinning Fatigue, unspecified type Expected: 07/19/2022, Expires: 09/18/[address] [facility] Work Phone: Comment on above: Expected: 07/19/2022 , Expires: 09/18/2022 Start: 07-19-2022 End: 09-18-2022 Thyrotropin [Units/volume] in Serum or Plasma TSH BLD Lab Routine Hypothyroidism, unspecified type Expected: 07/19/2022, Expires: 09/18/[address] [facility] Work Phone: Comment on above: Expected: 07/19/2022 , Expires: 09/18/2022 Start: 07-19-2022 End: 09-18-2022 Thyroxine (T4) free [Mass/volume] in Serum or Plasma T4 FREE/FREE THYROX Lab Routine Hypothyroidism, unspecified type Expected: 07/19/2022, Expires: 09/18/[address] [facility] Work Phone: Comment on above: Expected: 07/19/2022 , Expires: 09/18/2022 Start: 07-19-2022 End: 09-18-2022 Triiodothyronine (T3) Free [Mass/volume] in Serum or Plasma T3 FREE BLD Lab Routine Hypothyroidism, unspecified type Expected: 07/19/2022, Expires: 09/18/[address] [facility] Work Phone: Comment on above: Expected: 07/19/2022 , Expires: 09/18/2022 Start: 06-23-2022 ANNUAL PCP TEAM BLOWER INSTALLER PAULIE DISEASE VISIT ANNUAL PCP TEAM CHRONIC DISEASE VISIT [facility] Start: 05-15-2022 ADVANCE DIRECTIVE DISCUSSION ADVANCE DIRECTIVE DISCUSSION [facility] Start: 04-19-2022 End: 06-19-2022 ALK PHOS ISOENZYM BL [facility] Work Phone: Comment on above: Expected: 04/19/2022 , Expires: 06/19/2022 Start: 04-19-2022 End: 06-19-2022 Comprehensive metabolic 2000 panel - Serum or Plasma [facility] Work Phone: Comment on above: Expected: 04/19/2022 , Expires: 06/19/2022 Start: 04-19-2022 End: 06-19-2022 Lipid 1996 panel - Serum or Plasma [facility] Work Phone: Comment on above: Expected: 04/19/2022 , Expires: 06/19/2022 Start: 04-19-2022 End: 06-19-2022 Thyrotropin [Units/volume] in Serum or Plasma [facility] Work Phone: Comment on above: Expected: 04/19/2022 , Expires: 06/19/2022 Start: 04-19-2022 End: 06-19-2022 Thyroxine (T4) free [Mass/volume] in Serum or Plasma [facility] Work Phone: Comment on above: Expected: 04/19/2022 , Expires: 06/19/2022 Start: 04-19-2022 End: 06-19-2022 Triiodothyronine (T3) Free [Mass/volume] in Serum or Plasma [facility] Work Phone: Comment on above: Expected: 04/19/2022 , Expires: 06/19/2022 Start: 01-21-2022 End: 03-23-2022 25-hydroxyvitamin D3 [Mass/volume] in Serum or Plasma VITAMIN D 25 HYDROXY Lab Routine Vitamin D deficiency Expected: 01/21/2022, Expires: 03/23/[address] [facility] Work Phone: Comment on above: Expected: 01/21/2022 , Expires: 03/23/2022 Start: 01-21-2022 End: 03-23-2022 CBC W Auto Differential panel - Blood CBC + DIFF Lab Routine Hypothyroidism, unspecified type Expected: 01/21/2022, Expires: 03/23/[address] [facility] Work Phone: Comment on above: Expected: 01/21/2022 , Expires: 03/23/2022 Start: 01-21-2022 End: 03-23-2022 Cobalamin (Vitamin B12) [Mass/volume] in Serum or Plasma VITAMIN B12 BLOOD Lab Routine Vitamin B12 deficiency Expected: 01/21/2022, Expires: 03/23/[address] [facility] Work Phone: Comment on above: Expected: 01/21/2022 , Expires: 03/23/2022 Start: 01-21-2022 End: 03-23-2022 Comprehensive metabolic 2000 panel - Serum or Plasma COMP METABOLIC PANEL Lab Routine Hypothyroidism, unspecified type Expected: 01/21/2022, Expires: 03/23/[address] [facility] Work Phone: Comment on above: Expected: 01/21/2022 , Expires: 03/23/2022 Start: 01-21-2022 End: 03-23-2022 Hemoglobin A1c in Blood HGB A1C Lab Routine Hyperglycemia Expected: 01/21/2022 (Approximate), Expires: 03/23/[address] [facility] Work Phone: Comment on above: Expected: 01/21/2022 (Approximate), Expires: 03/23/2022 Start: 01-21-2022 End: 03-23-2022 Lipid 1996 panel - Serum or Plasma LIPID PANEL BASIC Lab Routine Dyslipidemia Expected: 01/21/2022, Expires: 03/23/[address] [facility] Work Phone: Comment on above: Expected: 01/21/2022 , Expires: 03/23/2022 Start: 01-21-2022 End: 03-23-2022 Magnesium [Mass/volume] in Serum or Plasma MAGNESIUM BLD Lab Routine Hypothyroidism, unspecified type Expected: 01/21/2022, Expires: 03/23/[address] [facility] Work Phone: Comment on above: Expected: 01/21/2022 , Expires: 03/23/2022 Start: 01-21-2022 End: 03-23-2022 THYROID PEROXIDASE ANTIBODY BLOOD THYROID PEROXIDASE ANTIBODY BLOOD Lab Routine Hypothyroidism, unspecified type Expected: 01/21/2022, Expires: 03/23/[address] [facility] Work Phone: Comment on above: Expected: 01/21/2022 , Expires: 03/23/2022 Start: 01-21-2022 End: 03-23-2022 Thyrotropin [Units/volume] in Serum or Plasma TSH BLD Lab Routine Hypothyroidism, unspecified type Expected: 01/21/2022, Expires: 03/23/[address] [facility] Work Phone: Comment on above: Expected: 01/21/2022 , Expires: 03/23/2022 Start: 01-21-2022 End: 03-23-2022 Thyroxine (T4) free [Mass/volume] in Serum or Plasma T4 FREE/FREE THYROX Lab Routine Hypothyroidism, unspecified type Expected: 01/21/2022, Expires: 03/23/[address] [facility] Work Phone: Comment on above: Expected: 01/21/2022 , Expires: 03/23/2022 Start: 01-21-2022 End: 03-23-2022 Triiodothyronine (T3) Free [Mass/volume] in Serum or Plasma T3 FREE BLD Lab Routine Hypothyroidism, unspecified type Expected: 01/21/2022, Expires: 03/23/[address] [facility] Work Phone: Comment on above: Expected: 01/21/2022 , Expires: 03/23/2022 Start: 01-13-2022 Influenza vaccination O [facility] Start: 11-11-2021 Influenza vaccination INFLUENZA (#1) [facility] Comment on above: Postponed from 01/13 (Declined at this time) Start: 10-23-2021 End: 12-23-2021 25-hydroxyvitamin D3 [Mass/volume] in Serum or Plasma VITAMIN D 25 HYDROXY Lab Routine Vitamin D deficiency Fatigue, unspecified type Expected: 10/23/2021, Expires: 12/23/[address] [facility] Work Phone: Comment on above: Expected: 10/23/2021 , Expires: 12/23/2021 Start: 10-23-2021 End: 12-23-2021 CBC W Auto Differential panel - Blood CBC + DIFF Lab Routine Fatigue, unspecified type Expected: 10/23/2021, Expires: 12/23/[address] [facility] Work Phone: Comment on above: Expected: 10/23/2021 , Expires: 12/23/2021 Start: 10-23-2021 End: 12-23-2021 Cobalamin (Vitamin B12) [Mass/volume] in Serum or Plasma VITAMIN B12 BLOOD Lab Routine Vitamin B12 deficiency Fatigue, unspecified type Expected: 10/23/2021, Expires: 12/23/[address] [facility] Work Phone: Comment on above: Expected: 10/23/2021 , Expires: 12/23/2021 Start: 10-23-2021 End: 12-23-2021 Comprehensive metabolic 2000 panel - Serum or Plasma COMP METABOLIC PANEL Lab Routine Fatigue, unspecified type Expected: 10/23/2021, Expires: 12/23/[address] [facility] Work Phone: Comment on above: Expected: 10/23/2021 , Expires: 12/23/2021 Start: 10-23-2021 End: 12-23-2021 Lipid 1996 panel - Serum or Plasma LIPID PANEL BASIC Lab Routine Dyslipidemia Expected: 10/23/2021, Expires: 12/23/[address] [facility] Work Phone: Comment on above: Expected: 10/23/2021 , Expires: 12/23/2021 Start: 10-23-2021 End: 12-23-2021 Thyrotropin [Units/volume] in Serum or Plasma TSH BLD Lab Routine Hypothyroidism, unspecified type Fatigue, unspecified type Expected: 10/23/2021, Expires: 12/23/[address] [facility] Work Phone: Comment on above: Expected: 10/23/2021 , Expires: 12/23/2021 Start: 10-23-2021 End: 12-23-2021 Thyroxine (T4) free [Mass/volume] in Serum or Plasma T4 FREE/FREE THYROX Lab Routine Hypothyroidism, unspecified type Fatigue, unspecified type Expected: 10/23/2021, Expires: 12/23/[address] [facility] Work Phone: Comment on above: Expected: 10/23/2021 , Expires: 12/23/2021 Start: 10-23-2021 End: 12-23-2021 Triiodothyronine (T3) Free [Mass/volume] in Serum or Plasma T3 FREE BLD Lab Routine Hypothyroidism, unspecified type Fatigue, unspecified type Expected: 10/23/2021, Expires: 12/23/[address] [facility] Work Phone: Comment on above: Expected: 10/23/2021 , Expires: 12/23/2021 Start: 05-15-2021 ADVANCE DIRECTIVE DISCUSSION ADVANCE DIRECTIVE DISCUSSION [facility] Start: 04-07-2021 COLORECTAL CANCER SCREENING COLORECTAL CANCER SCREENING [facility] Start: 04-07-2021 FECAL OCCULT BLOOD FECAL OCCULT BLOO D [facility] Start: 09-10-2020 BONE DENSITY BONE DENSITY [facility] Start: 09-10-2020 Bone Density Screening Bone Density Screening [facility] Start: 09-10-2020 Pneumococcal vaccination PNEUM OCOCCAL VACCINE SERIES (1 of 1 - PPSV23) [facility] Start: 09-10-2020 Pneumococcal Vaccine : 65+ (1 of 1 - PCV) Pneumococcal Vaccine: 65+ (1 of 1 - PCV) [facility] Start: 09-10-2020 PNEUMOCOCCAL: 65+ (1 - PCV) PNEUMOCOCCAL: 65+ (1 - PCV) [facility] Start: 09-10-2020 PNEUMOVAX AGE 65 AND OVER WITH 5YR LOOKBACK (#1) PNEUMOVAX AGE 65 AND OVER WITH 5YR LOOKBACK (#1) [facility] Start: 09-10-2020 Screening for osteoporosis Bone Dens ity Screening [facility] Start: 08-03-2020 Urine microalbumin profile DTA P,TDAP,TD (2 - Td or Tdap) [facility] Start: 11-21-2019 Mammography [facility] Start: 11-21-2019 Screening for malign ant neoplasm of breast Mammogram Screening [facility] Start: 10-02-2019 Thyroid stimulating hormone measurement TSH [facility] Start: 2015 RSV Vaccine (1 - 1-d ose 60+ series) RSV Vaccine (1 - 1-dose 60+ series) [facility] Start: 09-10-2005 SHINGRIX VACCINE (1 of 2) HAIRSTON GRIX VACCINE (1 of 2) [facility] Start: 09-10-2005 Zoster vaccine hzv l rafy for subcutaneous use ZOSTER (SHINGLES) VACCINE (1 of 2) [facility] Start: 09-10-2000 COLOGUARD (FIT-DNA) COLOGUARD (FIT-D NA) [facility] Start: 09-10-2000 Colonoscopy [facility] Start: 09-10-[address] COLONOGRAPHY [facility] Start: 09-10-2000 Screening for malign ant neoplasm of colon [facility] Start: 09-10-2000 SIGMOIDOSCOPY SIGMOIDOSCOPY [facility] Start: 1995 Screening mammography MAMMOGRA M SCREENING DISCUSSION [facility] Start: 09-10-1976 Screening for malign ant neoplasm of cervix CERVICAL CANCER SCREENING DISCUSSION [facility] Start: 09-10-1974 Third diphtheria, te tanus and acellular pertussis (DTaP) vaccination TDAP (ADULT) [facility] Start: 09-10-1973 HIV SCREENING HIV SCREENING [facility] Start: 09-10-1973 Tetanus vaccination TETANUS [facility] Start: 09-10-1960 COVID-19 VACCINE (#1) COVID-19 VACCI NE (#1) [facility] Start: 09-10-1960 COVID-19 VACCINE (1) COVID-19 VACCIN E (1) [facility] Start: 03-12-1956 COVID-19 VACCINE (#1) COVID-19 VACCI NE (#1) [facility] Start: 1955 Hepatitis C antibody , confirmatory test HEPATITIS C VIRUS SCREENING [facility] Start: 1955 Screening for osteoporosis DEXA SCAN DISCUSSION [facility] End: 07-06-2023 DXA-AXIAL SKELETON DXA-AXIAL SKELETON Radiology Routine Encounter for screening for osteoporosis 1 Occurrences starting 06/06/2022 until 07/06/[address] [facility] Work Phone: Comment on above: 1 Occurrences starti ng 06/06/2022 until 07/06/2023 Hemoglobin.gastroint estina l.lower [Presence] in Stool by Immunoassay FECAL OCCULT BLOOD TEST Lab Routine Screening for colon cancer Ordered: 07/19/[address] [facility] Work Phone: Comment on above: Ordered: 07/19/2022 End: 08-18-2023 LUNG VOLUMES LUNG VOLUMES PFT Routine SOB (shortness of breath) 1 Occurrences starting 07/19/2022 until 08/18/[address] [facility] Work Phone: Comment on above: 1 Occurrences starti ng 07/19/2022 until 08/18/2023 LUNG VOLUMES LUNG VOLUMES PFT Routine SOB (shortness of breath) 07/20/2022 8:[address] [facility] Work Phone: End: 07-06-2023 MANDO SCREENING MANDO SCREENING Radiology Routine Encounter for screening mammogram for malignant neoplasm of breast 1 Occurrences starting 06/06/2022 until 07/06/[address] [facility] Work Phone: Comment on above: 1 Occurrences starti ng 06/06/2022 until 07/06/2023 End: 06-15-2024 MANDO SCREENING MANDO SCREENING Radiology Routine Encounter for screening mammogram for breast cancer 1 Occurrences starting 05/17/2023 until 06/15/[address] [facility] Work Phone: Comment on above: 1 Occurrences starti ng 05/17/2023 until 06/15/2024 End: 08-18-2023 Radiologic exam chest 2 views XR CHEST 2V FRONTAL/LAT Radiology Routine SOB (shortness of breath) 1 Occurrences starting 07/19/2022 until 08/18/[address] [facility] Work Phone: Comment on above: 1 Occurrences starti ng 07/19/2022 until 08/18/2023 End: 12-10-2022 Screening mammography bi 2-view breast inc cad MANDO SCREENING Radiology Routine Encounter for screening mammogram for breast cancer 1 Occurrences starting 11/10/2021 until 12/10/[address] [facility] Work Phone: Comment on above: 1 Occurrences starti ng 11/10/2021 until 12/10/2022 End: 08-18-2023 SPIROMETRY - BASELINE AND POST DILATOR SPIROMETRY - BASELINE AND POST DILATOR PFT Routine SOB (shortness of breath) 1 Occurrences starting 07/19/2022 until 08/18/[address] [facility] Work Phone: Comment on above: 1 Occurrences starti ng 07/19/2022 until 08/18/2023 SPIROMETRY - BASELIN E AND POST DILATOR SPIROMETRY - BASELINE AND POST DILATOR PFT Routine SOB (shortness of breath) 07/20/2022 8:[address] [facility] Work Phone: End: 05-19-2023 STRESS ECHO TREADMILL STRESS ECHO TREADMILL Cardiology Routine Near syncope 1 Occurrences starting 05/19/2022 until 05/19/[address] [facility] Work Phone: Comment on above: 1 Occurrences starti ng 05/19/2022 until 05/19/2023 End: 06-02-2023 Us abdominal real time w/image limited US ABD RT UPPER QUADRANT Radiology Routine Elevated alkaline phosphatase level 1 Occurrences starting 05/03/2022 until 06/02/[address] [facility] Work Phone: Comment on above: 1 Occurrences starti ng 05/03/2022 until 06/02/2023 End: 07-06-2023 XR ANKLE GENERAL 3V AP/LAT/OBL RIGHT XR ANKLE GENERAL 3V AP/LAT/OBL RIGHT Radiology Routine Right ankle swelling 1 Occurrences starting 06/06/2022 until 07/06/[address] [facility] Work Phone: Comment on above: 1 Occurrences starti ng 06/06/2022 until 07/06/2023 XR ANKLE GENERAL 3V AP/LAT/OBL RIGHT XR ANKLE GENERAL 3V AP/LAT/OBL RIGHT Radiology Routine Right ankle swelling 06/06/2022 11:[address] [facility] Work Phone: [facility] Immunizations Immunization Date Immunization Notes Care Provider Kareem sanders 03-24-2020 influenza, seasonal, injectable 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.[facility] Work Phone: [facility] Work Phone: 03-24-2020 influenza virus vaccine, unspecified formulation Said Atway DPM Work Phone: [facility] 03-18-2020 influenza, seasonal, injectable [facility] Work Phone: 10-23-2019 tetanus toxoid, redu bianka diphtheria toxoid, and acellular pertussis vaccine, adsorbed [facility] Work Phone: 03-27-2019 influenza, seasonal, injectable [facility] Work Phone: 02-19-2019 influenza, seasonal, injectable 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.[facility] Work Phone: [facility] Work Phone: 03-05-2018 influenza, seasonal, injectable [facility] Work Phone: 02-14-2018 influenza, seasonal, injectable 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.[employer]IC[employer] Work Phone: [facility] Work Phone: 08-03-2010 tetanus toxoid, redu bianka diphtheria toxoid, and acellular pertussis vaccine, adsorbed 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.[facility] Work Phone: [facility] Work Phone: Payers Date Payer Category Payer Self-pay [id number] 2023 Unknown [id number] 2022 Medicare [id number] 2021 Medicare [id number] 2021 Medicare HUMANA MEDICARE HUMANA GOLD PLUS [id number] 2021-[facility] [phone] [place] [id number] [facility] [id number] 2021 Medicare [id number] 2017 Unknown [id number] 1955 Unknown [id number] 1955 Unknown [id number] 1955 Unknown [id number] 1955 Unknown [id number] Medicare MEDICARE PART A B [id number] Unknown [id number] Unknown [employer] OTHER [id number] Unknown [employer] [id number] Unknown [facility] [id number] Unknown [id number] Unknown [id number] Social History Date Type Detail Facility Start: 09-30-2018 End: 01-21-2022 Tobacco smoking status NHIS Ex-smoker [facility] Work Phone: End: 05-15-1988 History of tobacco use Current smoker [facility] Work Phone: End: 05-15-1988 History of tobacco use Cigarette Smoker [facility] Work Phone: Start: 06-23-2021 End: 05-03-2023 Alcohol intake Current non-drinker of alcohol (finding) [facility] Start: 1955 Sex Assigned At Not on file [facility] Start: 09-30-2018 End: 10-05-2022 Cigarettes smoked current (pack per day) - Reported 2 [facility] Start: 09-30-2018 End: 01-21-2022 Tobacco use and exposure Smokeless tobacco non-user [facility] Start: 07-19-2021 End: 01-21-2022 Exposure to SARS-CoV-2 (event) Not sure [facility] Start: 1955 Sex Assigned At Female [facility] Work Phone: Start: 10-05-2022 End: 11-25-2022 Tobacco use panel [facility] Adult Depression Screening Assessment 0 [facility] Medical Equipment Procedure Code Equipment Code Equipment Origin al Text Equipment Identifier Dates [id number] Implant - [id number] Start: 01-31-2012 Comment on above: Description: [id number],S CREW Screw Bn 3.5mm 45mm Ti Harris - [id number] Start: 01-31-2012 Wire Fix .054in 6in Krsh Ss Ns - [id number] Start: 01-31-2012 Comment on above: Description: ONE .O5 4 KWIRE EXPLANTED Clinical Notes 11-04-2013 to 06-23-2023 Telephone Encounter - Ivana Mitchell APRN.CNP - 06/23/2023 2:58 PM ESTTelephone Encounter - Cydney Mahmood LPN - 06/23/2023 1:19 PM Viji Parekh - 05/04/2023 12:04 PM EST Note Date & Type Note Facility 06-23-2023 Miscellaneous Notes The following approved medication requests have been transmitted electronically. Requested Prescriptions Signed Prescriptions Disp Refills dextroamphetamine-amphetamine (ADDERALL) 10 mg tablet 30 tablet 0 Sig: Take 0.5-1 tablets by mouth once daily for 30 days. Authorizing Provider: IVANA MITCHELL APRN.CNP PDMP website checked and validated. All prescriptions have been APPROPRIATELY filled. No suspicious activity was identified. 06/23/2023 by Ivana Mitchell CNP. Patient has been identified by name and date of : Yes, Provider Dr. Arias Date 06/23/23 Time 1:21 Patient phones for refill(s): Requested Prescriptions Pending Prescriptions Disp Refills dextroamphetamine-amphetamine (ADDERALL) 10 mg tablet 30 tablet 0 Sig: Take 0.5-1 tablets by mouth once daily for 30 days. Date of last office visit in primary care: Visit date not found Date of next office visit in primary care: Visit date not found Please advise. Thank you. Cydney Mahmood LPN. Patient has been identified by name and date of : Yes, Provider Shin Arias DO Date 06/23/2023 Time 12:45 pm Patient phones for refill(s): Requested Prescriptions Pending Prescriptions Disp Refills dextroamphetamine-amphetamine (ADDERALL) 10 mg tablet 30 tablet 0 Sig: Take 0.5-1 tablets by mouth once daily for 30 days. Date of last office visit in primary care: Date of next office visit in primary care: 08/02/2023 Please advise. Thank you. Mary Jo Rodriguez. documented in this encounter [facility] 05-17-2023 Note Patient Outreach (IN TMMN) HENRY OLIVEIRA ([id number]) 1955 F Date Time Provider Department 05/17/23 SHIN ARIAS During your visit today, we recorded the following information about you: Allergies As of Date: 05/17/2023 Noted Allergy Reaction BACTRIM (SULFAMETHOXAZOLE) 05/23/2014 4 - Hives MORPHINE SULFATE 03/30/2005 9 - Itching TEA TREE OIL 07/22/2009 2 - Rash Date Reviewed: 05/03/2023 Reviewed by: Lupe Stoll LPN - Fully Assessed Visit Diagnosis:Encounter for screening mammogram for breast cancer [Z12.31] Order(s):[facility] SCREENING [[id number]] Order #: [id number] FUTURE Prescriptions as of 05/22/2023 - dextroamphetamine-amphetamine (ADDERALL) 10 mg tablet Take 0.5-1 tablets by mouth once daily for 30 days. - ARMOUR THYROID 60 mg tablet Take 1 tablet by mouth once daily. - FLUoxetine (PROZAC) 10 mg capsule Take 1 capsule by mouth once daily. - traZODone (DESYREL) 50 mg tablet TAKE 1 TO 2 TABLETS AT BEDTIME FOR SLEEP - mometasone (ELOCON) 0.1 % ointment Apply to affected area once daily as needed. Once daily as needed on rash - mupirocin (BACTROBAN) 2 % ointment Apply to affected area twice daily as needed (skin infection). - omega 5-fuf-asv-fish oil (FISH OIL) 100-160-1,000 mg cap Take 1 capsule by mouth. - selenium 200 mcg cap Take by mouth. - zinc sulfate (ZINC-15 ORAL) Take by mouth. - CPAP Initiate CPAP @ 6 cm of water with humidification. Mask (per patient preference) optional chin strap (if indicated) , filters, tubing, humidifier and lifetime supplies. - vitamin B complex (B COMPLEX ORAL) Take 1 tablet by mouth once daily. - L-LYSINE ORAL Take 1 capsule by mouth once daily. - cyclobenzaprine (FLEXERIL) 10 mg tablet Take 1 tablet by mouth three times daily as needed for Muscle Spasm. - Cholecalciferol, Vitamin D3, 5,000 unit cap Take 1 capsule by mouth once daily. - ascorbic acid, vitamin C, (VITAMIN C) 500 mg tablet Take 1 tablet by mouth three times daily. - PROPYLENE GLYCOL/PEG 400 (BLINK TEARS LUBRICATING) Eye Drops Use 1 Drop in both eyes four times daily. - Aspirin 81 mg Tab Take 4 tablets by mouth one time only for 1 dose. Facility-Administered Medications as of 05/22/2023 - perflutren lipid microspheres 1.3 mL in NaCl (PF) 0.9% 10 mL injection (DEFINITY) - sodium chloride 0.9 % (flush) 10 mL (BD POSIFLUSH) Meds Comments as of 08/09/2021: .rxe Problem List As Of Date 05/17/2023 Noted Resolved DEPRESSIVE DISORDER NEC [F32.89] 09/27/2006 09/19/2008 SPRAIN OF NECK [S13.9XXA] 10/11/2006 06/28/2007 CERVICALGIA [M54.2] 11/13/2006 06/28/2007 ANXIETY STATE NOS [F41.1] 12/12/2006 09/19/2008 Asymptomatic varicose veins [I83.90] Adjustment disorder with mixed anxiety and depr*09/19/2008 11/30/2015 Dyslipidemia [E78.5] 11/08/2010 Chronic low back pain [M54.50, G89.29] 11/08/2010 Degenerative joint disease [M19.90] 11/08/2010 Metatarsalgia [M77.40] 09/02/2011 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] 09/02/2011 Other hammer toe (acquired) [M20.40] 09/02/2011 Hallux valgus (acquired) [M20.10] 09/02/2011 Traumatic tear of right rotator cuff [S46.011A] 05/03/2012 11/11/2013 Rotator cuff (capsule) sprain [S43.429A] 05/23/2012 11/11/2013 Insomnia [G47.00] 12/27/2012 Anxiety [F41.9] 12/27/2012 Depression [F32.A] 02/08/2013 Vitamin D deficiency [E55.9] 10/30/2013 Pain in joint, shoulder region [M25.519] 11/04/2013 11/30/2015 HERNAN (obstructive sleep apnea) [G47.33] 05/23/2014 Excessive daytime sleepiness [G47.19] 05/23/2014 Hypothyroidism [E03.9] 10/27/2014 Atypical nevus of shoulder [D22.60] 09/16/2015 Atypical nevus of back [D22.5] 09/16/2015 Vitreous floaters of both eyes [H43.393] 02/23/2016 Dry eye syndrome [H04.129] 02/23/2016 Encounter for screening mammogram for malignant*03/31/2016 Acute bilateral low back pain with right-sided *11/01/2016 Somatic dysfunction of pelvic region [M99.05] 11/01/2016 Somatic dysfunction of lumbar region [M99.03] 11/01/2016 Acute back pain with sciatica [M54.40] 12/05/2016 Situational stress [F43.9] 02/28/2017 Fatigue [R53.83] 02/28/2017 Concentration deficit [R41.840] 02/28/2017 Mood disorder (HCC) [F39] 02/28/2017 Neural foraminal stenosis of lumbar spine [M48.*07/17/2017 Intervertebral disc disorder with radiculopathy*07/17/2017 DDD (degenerative disc disease), lumbar [M51.36]07/17/2017 Hypothyroidism, acquired [E03.9] 07/25/2018 Well adult exam [Z00.00] 07/25/2018 Vertebral artery stenosis, bilateral [I65.03] 10/30/2018 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 [facility] 05-09-2023 Note HNO ID: [id number] Author: Viji Marrero Service: ? Author Type: ? Type: Progress Notes Filed: 05/09/2023 12:09 PM Note Text: POPULATION HEALTH NAVIGATION OUTREACH Action/FYI 2nd call, left vm Patient Identified by Name and : NO Outreach Outcome/Action Unable to reach patient: Left message [employer] S[employer] message sent Did you use a PCP flex slot to schedule this appointment? No Reason for Outreach Care Gap or Scheduling/Wellness visits Payer: Payor: O MEDICARE / Plan: [employer] HMO / Product Type: HMO / Care Gap Reviewed:: Specialty Scheduling Reminder: Reminder note to check Health Maintenance for items below Health Maintenance items due: Shingrix Vaccine(1 of 2) Never done RSV Vaccine(1 - 1-dose 60+ series) Never done Mammogram Screening due on 11/21/2019 Bone Density Screening Never done Colorectal Cancer Screening due on 07/29/2023 Navigation Signature: Viji Marrero May 09, 2023 12:09 PM [facility] 05-09-2023 Note Patient Outreach (AC CC) HENRY OLIVEIRA ([id number]) 1955 F Date Time Provider Department 05/09/23 PCP (HISTORICAL) [facility] During your visit today, we recorded the following information about you: Viji Marrero 05/09/2023 12:09 PM Signed POPULATION HEALTH NAVIGATION OUTREACH Action/FYI 2nd call, left vm Patient Identified by Name and : NO Outreach Outcome/Action Unable to reach patient: Left message [employer] message sent Did you use a PCP flex slot to schedule this appointment? No Reason for Outreach Care Gap or Scheduling/Wellness visits Payer: Payor: O MEDICARE / Plan: [employer] HMO / Product Type: HMO / Care Gap Reviewed:: Specialty Scheduling Reminder: Reminder note to check Health Maintenance for items below Health Maintenance items due: Shingrix Vaccine(1 of 2) Never done RSV Vaccine(1 - 1-dose 60+ series) Never done Mammogram Screening due on 11/21/2019 Bone Density Screening Never done Colorectal Cancer Screening due on 07/29/2023 Navigation Signature: Viji Marrero May 09, 2023 12:09 PM Allergies As of Date: 05/09/2023 Noted Allergy Reaction BACTRIM (SULFAMETHOXAZOLE) 05/23/2014 4 - Hives MORPHINE SULFATE 03/30/2005 9 - Itching TEA TREE OIL 07/22/2009 2 - Rash Date Reviewed: 05/03/2023 Reviewed by: Lupe Stoll LPN - Fully Assessed Prescriptions as of 05/09/2023 - ARMOUR THYROID 60 mg tablet Take 1 tablet by mouth once daily. - dextroamphetamine-amphetamine (ADDERALL) 10 mg tablet Take 0.5-1 tablets by mouth once daily for 30 days. - FLUoxetine (PROZAC) 10 mg capsule Take 1 capsule by mouth once daily. - traZODone (DESYREL) 50 mg tablet TAKE 1 TO 2 TABLETS AT BEDTIME FOR SLEEP - mometasone (ELOCON) 0.1 % ointment Apply to affected area once daily as needed. Once daily as needed on rash - mupirocin (BACTROBAN) 2 % ointment Apply to affected area twice daily as needed (skin infection). - omega 2-gks-wqg-fish oil (FISH OIL) 100-160-1,000 mg cap Take 1 capsule by mouth. - selenium 200 mcg cap Take by mouth. - zinc sulfate (ZINC-15 ORAL) Take by mouth. - CPAP Initiate CPAP @ 6 cm of water with humidification. Mask (per patient preference) optional chin strap (if indicated) , filters, tubing, humidifier and lifetime supplies. - vitamin B complex (B COMPLEX ORAL) Take 1 tablet by mouth once daily. - L-LYSINE ORAL Take 1 capsule by mouth once daily. - cyclobenzaprine (FLEXERIL) 10 mg tablet Take 1 tablet by mouth three times daily as needed for Muscle Spasm. - Cholecalciferol, Vitamin D3, 5,000 unit cap Take 1 capsule by mouth once daily. - ascorbic acid, vitamin C, (VITAMIN C) 500 mg tablet Take 1 tablet by mouth three times daily. - PROPYLENE GLYCOL/PEG 400 (BLINK TEARS LUBRICATING) Eye Drops Use 1 Drop in both eyes four times daily. - Aspirin 81 mg Tab Take 4 tablets by mouth one time only for 1 dose. Facility-Administered Medications as of 05/09/2023 - perflutren lipid microspheres 1.3 mL in NaCl (PF) 0.9% 10 mL injection (DEFINITY) - sodium chloride 0.9 % (flush) 10 mL (BD POSIFLUSH) Meds Comments as of 08/09/2021: .rxe Problem List As Of Date 05/09/2023 Noted Resolved DEPRESSIVE DISORDER NEC [F32.89] 09/27/2006 09/19/2008 SPRAIN OF NECK [S13.9XXA] 10/11/2006 06/28/2007 CERVICALGIA [M54.2] 11/13/2006 06/28/2007 ANXIETY STATE NOS [F41.1] 12/12/2006 09/19/2008 Asymptomatic varicose veins [I83.90] Adjustment disorder with mixed anxiety and depr*09/19/2008 11/30/2015 Dyslipidemia [E78.5] 11/08/2010 Chronic low back pain [M54.50, G89.29] 11/08/2010 Degenerative joint disease [M19.90] 11/08/2010 Metatarsalgia [M77.40] 09/02/2011 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] 09/02/2011 Other hammer toe (acquired) [M20.40] 09/02/2011 Hallux valgus (acquired) [M20.10] 09/02/2011 Traumatic tear of right rotator cuff [S46.011A] 05/03/2012 11/11/2013 Rotator cuff (capsule) sprain [S43.429A] 05/23/2012 11/11/2013 Insomnia [G47.00] 12/27/2012 Anxiety [F41.9] 12/27/2012 Depression [F32.A] 02/08/2013 Vitamin D deficiency [E55.9] 10/30/2013 Pain in joint, shoulder region [M25.519] 11/04/2013 11/30/2015 HERNAN (obstructive sleep apnea) [G47.33] 05/23/2014 Excessive daytime sleepiness [G47.19] 05/23/2014 Hypothyroidism [E03.9] 10/27/2014 Atypical nevus of shoulder [D22.60] 09/16/2015 Atypical nevus of back [D22.5] 09/16/2015 Vitreous floaters of both eyes [H43.393] 02/23/2016 Dry eye syndrome [H04.129] 02/23/2016 Encounter for screening mammogram for malignant*03/31/2016 Acute bilateral low back pain with right-sided *11/01/2016 Somatic dysfunction of pelvic region [M99.05] 11/01/2016 Somatic dysfunction of lumbar region [M99.03] 11/01/2016 Acute back pain with sciatica [M54.40] 12/05/2016 Situational stress [F43.9] 02/28/2017 Fatigue [R53.83] 02/28/2017 Concentration deficit [R41.840] 02/28/2017 (more content not included)... [facility] 05-04-2023 Note HNO ID: [id number] Author: Viji Marrero Service: ? Author Type: ? Type: Progress Notes Filed: 05/04/2023 12:04 PM Note Text: POPULATION HEALTH NAVIGATION OUTREACH Action/FYI Left vm Patient Identified by Name and : NO Outreach Outcome/Action Unable to reach patient: Left message Red Swooshhart message sent Did you use a PCP flex slot to schedule this appointment? No Reason for Outreach Care Gap or Scheduling/Wellness visits Payer: Payor: MMO MEDICARE / Plan: [employer] HMO / Product Type: HMO / Care Gap Reviewed:: Specialty Scheduling Reminder: Reminder note to check Health Maintenance for items below Health Maintenance items due: Shingrix Vaccine(1 of 2) Never done RSV Vaccine(1 - 1-dose 60+ series) Never done Mammogram Screening due on 11/21/2019 Bone Density Screening Never done Colorectal Cancer Screening due on 07/29/2023 Navigation Signature: Viji Marrero May 04, 2023 12:04 PM [facility] 05-04-2023 Note Patient Outreach (AC CC) HENRY OLIVEIRA ([id number]) 1955 F Date Time Provider Department 05/04/23 PCP (HISTORICAL) [facility] During your visit today, we recorded the following information about you: Viji Marrero 05/04/2023 12:04 PM Signed POPULATION HEALTH NAVIGATION OUTREACH Action/FYI Left vm Patient Identified by Name and : NO Outreach Outcome/Action Unable to reach patient: Left message [employer] message sent Did you use a PCP flex slot to schedule this appointment? No Reason for Outreach Care Gap or Scheduling/Wellness visits Payer: Payor: O MEDICARE / Plan: [employer] HMO / Product Type: HMO / Care Gap Reviewed:: Specialty Scheduling Reminder: Reminder note to check Health Maintenance for items below Health Maintenance items due: Shingrix Vaccine(1 of 2) Never done RSV Vaccine(1 - 1-dose 60+ series) Never done Mammogram Screening due on 11/21/2019 Bone Density Screening Never done Colorectal Cancer Screening due on 07/29/2023 Navigation Signature: Viji Marrero May 04, 2023 12:04 PM Allergies As of Date: 05/04/2023 Noted Allergy Reaction BACTRIM (SULFAMETHOXAZOLE) 05/23/2014 4 - Hives MORPHINE SULFATE 03/30/2005 9 - Itching TEA TREE OIL 07/22/2009 2 - Rash Date Reviewed: 05/03/2023 Reviewed by: Lupe Stoll LPN - Fully Assessed Prescriptions as of 05/04/2023 - ARMOUR THYROID 60 mg tablet Take 1 tablet by mouth once daily. - dextroamphetamine-amphetamine (ADDERALL) 10 mg tablet Take 0.5-1 tablets by mouth once daily for 30 days. - FLUoxetine (PROZAC) 10 mg capsule Take 1 capsule by mouth once daily. - traZODone (DESYREL) 50 mg tablet TAKE 1 TO 2 TABLETS AT BEDTIME FOR SLEEP - mometasone (ELOCON) 0.1 % ointment Apply to affected area once daily as needed. Once daily as needed on rash - mupirocin (BACTROBAN) 2 % ointment Apply to affected area twice daily as needed (skin infection). - omega 3-lkg-kvl-fish oil (FISH OIL) 100-160-1,000 mg cap Take 1 capsule by mouth. - selenium 200 mcg cap Take by mouth. - zinc sulfate (ZINC-15 ORAL) Take by mouth. - CPAP Initiate CPAP @ 6 cm of water with humidification. Mask (per patient preference) optional chin strap (if indicated) , filters, tubing, humidifier and lifetime supplies. - vitamin B complex (B COMPLEX ORAL) Take 1 tablet by mouth once daily. - L-LYSINE ORAL Take 1 capsule by mouth once daily. - cyclobenzaprine (FLEXERIL) 10 mg tablet Take 1 tablet by mouth three times daily as needed for Muscle Spasm. - Cholecalciferol, Vitamin D3, 5,000 unit cap Take 1 capsule by mouth once daily. - ascorbic acid, vitamin C, (VITAMIN C) 500 mg tablet Take 1 tablet by mouth three times daily. - PROPYLENE GLYCOL/PEG 400 (BLINK TEARS LUBRICATING) Eye Drops Use 1 Drop in both eyes four times daily. - Aspirin 81 mg Tab Take 4 tablets by mouth one time only for 1 dose. Facility-Administered Medications as of 05/04/2023 - perflutren lipid microspheres 1.3 mL in NaCl (PF) 0.9% 10 mL injection (DEFINITY) - sodium chloride 0.9 % (flush) 10 mL (BD POSIFLUSH) Meds Comments as of 08/09/2021: .rxe Problem List As Of Date 05/04/2023 Noted Resolved DEPRESSIVE DISORDER NEC [F32.89] 09/27/2006 09/19/2008 SPRAIN OF NECK [S13.9XXA] 10/11/2006 06/28/2007 CERVICALGIA [M54.2] 11/13/2006 06/28/2007 ANXIETY STATE NOS [F41.1] 12/12/2006 09/19/2008 Asymptomatic varicose veins [I83.90] Adjustment disorder with mixed anxiety and depr*09/19/2008 11/30/2015 Dyslipidemia [E78.5] 11/08/2010 Chronic low back pain [M54.50, G89.29] 11/08/2010 Degenerative joint disease [M19.90] 11/08/2010 Metatarsalgia [M77.40] 09/02/2011 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] 09/02/2011 Other hammer toe (acquired) [M20.40] 09/02/2011 Hallux valgus (acquired) [M20.10] 09/02/2011 Traumatic tear of right rotator cuff [S46.011A] 05/03/2012 11/11/2013 Rotator cuff (capsule) sprain [S43.429A] 05/23/2012 11/11/2013 Insomnia [G47.00] 12/27/2012 Anxiety [F41.9] 12/27/2012 Depression [F32.A] 02/08/2013 Vitamin D deficiency [E55.9] 10/30/2013 Pain in joint, shoulder region [M25.519] 11/04/2013 11/30/2015 HERNAN (obstructive sleep apnea) [G47.33] 05/23/2014 Excessive daytime sleepiness [G47.19] 05/23/2014 Hypothyroidism [E03.9] 10/27/2014 Atypical nevus of shoulder [D22.60] 09/16/2015 Atypical nevus of back [D22.5] 09/16/2015 Vitreous floaters of both eyes [H43.393] 02/23/2016 Dry eye syndrome [H04.129] 02/23/2016 Encounter for screening mammogram for malignant*03/31/2016 Acute bilateral low back pain with right-sided *11/01/2016 Somatic dysfunction of pelvic region [M99.05] 11/01/2016 Somatic dysfunction of lumbar region [M99.03] 11/01/2016 Acute back pain with sciatica [M54.40] 12/05/2016 Situational stress [F43.9] 02/28/2017 Fatigue [R53.83] 02/28/2017 Concentration deficit [R41.840] 02/28/2017 Mood diso (more content not included)... [facility] 05-04-2023 History of Present illness Narrative POPULATION HEALTH NAVIGATION OUTREACH Action/FYI Left vm Patient Identified by Name and : NO Outreach Outcome/Action Unable to reach patient: Left message [employer] S[employer] message sent Did you use a PCP flex slot to schedule this appointment? No Reason for Outreach Care Gap or Scheduling/Wellness visits Payer: Payor: O MEDICARE / Plan: [employer] HMO / Product Type: HMO / Care Gap Reviewed:: Specialty Scheduling Reminder: Reminder note to check Health Maintenance for items below Health Maintenance items due: Shingrix Vaccine(1 of 2) Never done RSV Vaccine(1 - 1-dose 60+ series) Never done Mammogram Screening due on 11/21/2019 Bone Density Screening Never done Colorectal Cancer Screening due on 07/29/2023 Navigation Signature: Viji Marrero May 04, 2023 12:04 PM documented in this encounter [facility] 05-03-2023 Note HNO ID: [id number] Author: Shin Arias, DO Service: ? Author Type: Physician Type: Progress Notes Filed: 05/03/2023 2:17 PM Note Text: CC: Henry Oliveira is a 67 year old female who presents to the office for follow up HPI: Sen in office in October, at that time History of stroke 4 years ago, no new neurologic symptoms. Still able to drive without difficulty. Sometimes with low back pain/aching that comes and goes with prolonged standing or walking. 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 Did have some b/l foot soreness and low back pain at work and end of the day, better with rest. No injuries. Bunions b/l feet and hammer toe 2nd toe left foot, has been seen by Podiatry, doesn't want to have surgery if doesn't have to Fatigue, stable, is taking supplements for B complex and vitamin D and trying to eat healthy diet. Mood, still sometimes very frustrated with her daughter and her lack of wanting to be in her life, still watching her 2 granddaughters several days a week and enjoying this although makes her feel tired afterwards. No SI or HI. Doesn't want to start new medication for mood. Hypothyroidism, taking armour thyroid supplement, feels stable TSH Date Value Ref Range Status 10/14/2022 1.130 0.270 - 4.200 mIU/L Final Free T4 Date Value Ref Range Status 10/14/2022 1.2 0.9 - 1.7 ng/dL Final Free T3 5.2 10/14/2022 HPL, trying to cut out sugar from her diet, has made drastic dietary changes, doesn't want to start statin therapy Cholesterol, Total Date Value Ref Range Status 10/14/2022 200 (H) <200 mg/dL Final Comment: <200 mg/dL, Desirable 200-239 mg/dL, Borderline high >239 mg/dL, High HDL Cholesterol Date Value Ref Range Status 10/14/2022 71 >39 mg/dL Final Comment: 40-59 mg/dL, Acceptable >59 mg/dL, High: Negative risk factor for coronary heart disease <40 mg/dL, Low: Positive risk factor for coronary heart disease LDL Cholesterol Date Value Ref Range Status 10/14/2022 121 (H) <100 mg/dL Final Comment: <100 mg/dL, Optimal 100-129 mg/dL, Near optimal/above optimal 130-159 mg/dL, Borderline high 160-189 mg/dL, High >189 mg/dL, Very high Secondary prevention optimal LDL Cholesterol levels are recommended to be < 70 mg/dL Triglyceride Date Value Ref Range Status 10/14/2022 38 <150 mg/dL Final Comment: <150 mg/dL, Normal 150-199 mg/dL, Borderline high 200-499 mg/dL, High >499 mg/dL, Very high Glucose (mg/dL) Date Value 10/14/2022 83 06/30/2021 88 Potassium (mmol/L) Date Value 10/14/2022 3.9 06/30/2021 4.8 Sodium (mmol/L) Date Value 10/14/2022 143 06/30/2021 139 Chloride (mmol/L) Date Value 10/14/2022 106 06/30/2021 103 CO2 (mmol/L) Date Value 10/14/2022 25 06/30/2021 29 Creatinine (mg/dL) Date Value 10/14/2022 0.56 06/30/2021 0.57 BUN (mg/dL) Date Value 10/14/2022 9 06/30/2021 13 Anion Gap (mmol/L) Date Value 10/14/2022 12 06/30/2021 7 Calcium (mg/dL) Date Value 06/30/2021 9.6 Calcium, Total (mg/dL) Date Value 10/14/2022 9.7 Protein, Total (g/dL) Date Value 10/14/2022 6.6 06/30/2021 7.0 Albumin (g/dL) Date Value 10/14/2022 4.5 06/30/2021 4.4 Bilirubin, Total (mg/dL) Date Value 10/14/2022 0.5 06/30/2021 0.4 Alkaline Phosphatase (U/L) Date Value 10/14/2022 104 06/30/2021 106 AST (U/L) Date Value 10/14/2022 20 06/30/2021 23 ALT (U/L) Date Value 10/14/2022 14 06/30/2021 16 Hemoglobin (g/dL) Date Value 10/14/2022 13.9 06/30/2021 13.8 Hematocrit (%) Date Value 10/14/2022 42.5 06/30/2021 42.5 WBC (k/uL) Date Value 10/14/2022 5.09 06/30/2021 5.11 Currently Admits to having some intermittent feeling of dyspnea, no chest pressure or pain symptoms, no dizziness/Lh or edema, no fevers or chills. No known history of CAD Anxiety, depression, taking prozac, recently has been having increased stressors with her grown adult daughter and has difficulty with talking with her and she would like to have a closer relationship. She is babysitting her daughter's 2 children, her grandchildren, which she really enjoys and this brings her melyssa. 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 Interested in seeing [employer] at [facility]. PAST MEDICAL HISTORY Diagnosis Date Abnormal glandular Papanicolaou smear of cervix Abn. Pap smear (cervix) Asymptomatic varicose veins Depressive disorder, not elsewhere classified 09/27/2006 Hearing decreased Hyperlipidemia Hypothyroidism 2010 HERNAN on CPAP [facility] Peripheral vascular disease, unspecified (HCC) varicose veins Sleep apnea CPAP Supraspinatus tendon tear 04/03/2012 right shoulder Vitamin B12 deficiency Vitamin D deficiency 10/30/2013 PAST SURGICAL HISTORY Procedure Laterality Date COLPOSCOPY CERVIX UPPER/ADJACENT VAGINA Colposcopy CORRECT BUNION,SIMPLE - (more content not included)... [facility] 04-11-2023 Miscellaneous Notes Patient has been identified by name and date of : Yes Requested Prescriptions Pending Prescriptions Disp Refills dextroamphetamine-amphetamine (ADDERALL) 10 mg tablet 30 tablet 0 Sig: Take 0.5-1 tablets by mouth once daily for 30 days. RX INSTRUCTIONS: Patient aware RX will be sent to pharmacy. No need to notify patient. Komal Smith MA Nohemi 12/2022 Nov 04/2023 Last refill; 02/20/2023 Patient has been identified by name and date of : Yes Requested Prescriptions Pending Prescriptions Disp Refills dextroamphetamine-amphetamine (ADDERALL) 10 mg tablet 30 tablet 0 Sig: Take 0.5-1 tablets by mouth once daily for 30 days. RX INSTRUCTIONS: Patient aware RX will be sent to pharmacy. No need to notify patient. Jamia Young documented in this encounter [facility] 02-20-2023 Miscellaneous Notes TC to patient who verbalized understanding of script sent to pharmacy. Nothing further at this time. CLAUDE Powell PDMP website checked and validated. All prescriptions have been APPROPRIATELY filled. No suspicious activity was identified. 02/20/2023 by Jossy Gustafson APRN.CNP The following approved medication requests have been transmitted electronically. Requested Prescriptions Signed Prescriptions Disp Refills dextroamphetamine-amphetamine (ADDERALL) 10 mg tablet 30 tablet 0 Sig: Take 0.5-1 tablets by mouth once daily for 30 days. Authorizing Provider: JOSSY GUSTAFSON APRN.CNP Patient called frustrated to check on the status of her refill. Review and advise. Patient's Adderall was sent to the wrong pharmacy. She is asking it be sent to the [facility] in [place]. Pended order pharmacy has been updated. Please resend. Pharmacy verified in Epic Patient has been identified by name and date of : Yes Patient aware RX will be sent to pharmacy. No need to notify patient. Patient phones for refill(s): Requested Prescriptions Pending Prescriptions Disp Refills dextroamphetamine-amphetamine (ADDERALL) 10 mg tablet 30 tablet 0 Sig: Take 0.5-1 tablets by mouth once daily for 30 days. Date of last office visit : 12/26/2022 Date of next office visit : 05/03/2023 Last 2 Encounter Wt Readings: Date: Wt: 01/25/2023 56.2 kg (124 lb) 12/26/2022 55.8 kg (123 lb) Not applicable Please advise. Gayla Peck documented in this encounter [facility] 01-26-2023 Miscellaneous Notes Patient given results and verbalized understanding of instructions given. Marjorie Cui Left message for patient to return call. Xochilt Thomson LPN ----- Message from Lida Cardenas APRN.BANK OPERATIONS OFFICER sent at 01/26/2023 7:21 AM EDT ----- Please advise patient: You tested positive for COVID-19. Follow the CDC guidelines for isolation: 1. Everyone, regardless of vaccination status, should stay home for 5 days. 2. If you have no symptoms or your symptoms are resolving after 5 days, you can leave your house. 3. Continue to wear a mask around others for 5 additional days. If you have a fever, continue to stay home until your fever resolves, even if it is longer than 5 days. Please monitor your symptoms, and for any worrisome symptoms, call your primary care provider or schedule a visit with [facility]. A test is not recommended to return to work/school when meeting the above criteria. Lida Cardenas APRN.BANK OPERATIONS OFFICER documented in this encounter [facility] 01-25-2023 Note HNO ID: [id number] Author: Chris Rendon MD Service: ? Author Type: Physician Type: Progress Notes Filed: 01/25/2023 3:56 PM Note Text: Patient presents with: Sore Throat: head congestion x 4 days HPI: Feeling sick for 5 days. Positive symptoms: sore throat, Fever, Chills, Malaise, Fatigue, Headache, Nausea, some Cough, Sinus pressure, Nasal Congestion, Rhinorrhea, Negative symptoms: Vomiting, Diarrhea, OTC: Mucinex, Cold Medicine, Tylenol MEDICATIONS: Current Outpatient Medications Medication Sig dextroamphetamine-amphetamine (ADDERALL) 10 mg tablet Take 0.5-1 tablets by mouth once daily for 30 days. traZODone (DESYREL) 50 mg tablet TAKE 1 TO 2 TABLETS AT BEDTIME FOR SLEEP FLUoxetine (PROZAC) 10 mg capsule Take 1 capsule by mouth once daily. mometasone (ELOCON) 0.1 % ointment Apply to affected area once daily as needed. Once daily as needed on rash mupirocin (BACTROBAN) 2 % ointment Apply to affected area twice daily as needed (skin infection). ARMOUR THYROID 60 mg tablet Take 1 tablet by mouth once daily. omega 9-lur-vjw-fish oil (FISH OIL) 100-160-1,000 mg cap Take 1 capsule by mouth. selenium 200 mcg cap Take by mouth. zinc sulfate (ZINC-15 ORAL) Take by mouth. CPAP Initiate CPAP @ 6 cm of water with humidification. Mask (per patient preference) optional chin strap (if indicated) , filters, tubing, humidifier and lifetime supplies. vitamin B complex (B COMPLEX ORAL) Take 1 tablet by mouth once daily. L-LYSINE ORAL Take 1 capsule by mouth once daily. cyclobenzaprine (FLEXERIL) 10 mg tablet Take 1 tablet by mouth three times daily as needed for Muscle Spasm. Cholecalciferol, Vitamin D3, 5,000 unit cap Take 1 capsule by mouth once daily. ascorbic acid, vitamin C, (VITAMIN C) 500 mg tablet Take 1 tablet by mouth three times daily. PROPYLENE GLYCOL/PEG 400 (BLINK TEARS LUBRICATING) Eye Drops Use 1 Drop in both eyes four times daily. Aspirin 81 mg Tab Take 4 tablets by mouth one time only for 1 dose. Current Facility-Administered Medications Medication Dose Route Frequency perflutren lipid microspheres 1.3 mL in NaCl (PF) 0.9% 10 mL injection (DEFINITY) INTRAVENOUS DIRECTED PRN sodium chloride 0.9 % (flush) 10 mL (BD POSIFLUSH) 10 mL INTRAVENOUS DIRECTED PRN ALLERGIES: ALLERGIES Allergen Reactions Bactrim [Sulfametho* Hives Morphine Sulfate Itching Tea Tree Oil Rash VITALS: BP 120/80 Pulse (!) 58 Temp 37.1 ?C (98.8 ?F) Resp 16 Wt 56.2 kg (124 lb) LMP 10/13/2006 SpO2 98% BMI 21.83 kg/m? PHYSICAL EXAM: GEN: mildly ill appearing HEENT: PERRL, EOMI, conjunctiva clear Ears: canals clear. TMs without erythema, bulge, or effusion Sinuses: non-tender frontal sinus, non-tender maxillary sinuses Throat: moist mucous membranes, mild erythema, no exudate Neck: supple, no thyromegaly, no lymphadenopathy HEART: regular rate and rhythm, no murmurs LUNGS: clear to auscultation, no wheezes or crackles, no increased WOB ASSESSMENT/PLAN: 1. Sore throat - ICD9: 462, ICD10: J02.9 (primary diagnosis) 2. Influenza-like illness - ICD9: 487.1, ICD10: J11.1 - STREP A MOLECULAR (POC) - negative - suspect viral URI, differential includes COVID-19. - Discussed supportive care treatment with home isolation, rest, cold medicine, and analgesia. - Red flags to seek further treatment include chest pain, shortness of breath, and lethargy; in the ER if severe. - COVID AND INFLUENZA A/B NAAT, ROUTINE Chris Rendon MD [facility] 01-25-2023 History of Present illness Narrative Patient presents with: Sore Throat: head congestion x 4 days HPI: Feeling sick for 5 days. Positive symptoms: sore throat, Fever, Chills, Malaise, Fatigue, Headache, Nausea, some Cough, Sinus pressure, Nasal Congestion, Rhinorrhea, Negative symptoms: Vomiting, Diarrhea, OTC: Mucinex, Cold Medicine, Tylenol MEDICATIONS: Current Outpatient Medications Medication Sig dextroamphetamine-amphetamine (ADDERALL) 10 mg tablet Take 0.5-1 tablets by mouth once daily for 30 days. traZODone (DESYREL) 50 mg tablet TAKE 1 TO 2 TABLETS AT BEDTIME FOR SLEEP FLUoxetine (PROZAC) 10 mg capsule Take 1 capsule by mouth once daily. mometasone (ELOCON) 0.1 % ointment Apply to affected area once daily as needed. Once daily as needed on rash mupirocin (BACTROBAN) 2 % ointment Apply to affected area twice daily as needed (skin infection). ARMOUR THYROID 60 mg tablet Take 1 tablet by mouth once daily. omega 4-gad-bbu-fish oil (FISH OIL) 100-160-1,000 mg cap Take 1 capsule by mouth. selenium 200 mcg cap Take by mouth. zinc sulfate (ZINC-15 ORAL) Take by mouth. CPAP Initiate CPAP @ 6 cm of water with humidification. Mask (per patient preference) optional chin strap (if indicated) , filters, tubing, humidifier and lifetime supplies. vitamin B complex (B COMPLEX ORAL) Take 1 tablet by mouth once daily. L-LYSINE ORAL Take 1 capsule by mouth once daily. cyclobenzaprine (FLEXERIL) 10 mg tablet Take 1 tablet by mouth three times daily as needed for Muscle Spasm. Cholecalciferol, Vitamin D3, 5,000 unit cap Take 1 capsule by mouth once daily. ascorbic acid, vitamin C, (VITAMIN C) 500 mg tablet Take 1 tablet by mouth three times daily. PROPYLENE GLYCOL/PEG 400 (BLINK TEARS LUBRICATING) Eye Drops Use 1 Drop in both eyes four times daily. Aspirin 81 mg Tab Take 4 tablets by mouth one time only for 1 dose. Current Facility-Administered Medications Medication Dose Route Frequency perflutren lipid microspheres 1.3 mL in NaCl (PF) 0.9% 10 mL injection (DEFINITY) INTRAVENOUS DIRECTED PRN sodium chloride 0.9 % (flush) 10 mL (BD POSIFLUSH) 10 mL INTRAVENOUS DIRECTED PRN ALLERGIES: ALLERGIES Allergen Reactions Bactrim [Sulfametho* Hives Morphine Sulfate Itching Tea Tree Oil Rash VITALS: BP 120/80 Pulse (!) 58 Temp 37.1 C (98.8 F) Resp 16 Wt 56.2 kg (124 lb) LMP 10/13/2006 SpO2 98% BMI 21.83 kg/m PHYSICAL EXAM: GEN: mildly ill appearing HEENT: PERRL, EOMI, conjunctiva clear Ears: canals clear. TMs without erythema, bulge, or effusion Sinuses: non-tender frontal sinus, non-tender maxillary sinuses Throat: moist mucous membranes, mild erythema, no exudate Neck: supple, no thyromegaly, no lymphadenopathy HEART: regular rate and rhythm, no murmurs LUNGS: clear to auscultation, no wheezes or crackles, no increased WOB ASSESSMENT/PLAN: 1. Sore throat - ICD9: 462, ICD10: J02.9 (primary diagnosis) 2. Influenza-like illness - ICD9: 487.1, ICD10: J11.1 - STREP A MOLECULAR (POC) - negative - suspect viral URI, differential includes COVID-19. - Discussed supportive care treatment with home isolation, rest, cold medicine, and analgesia. - Red flags to seek further treatment include chest pain, shortness of breath, and lethargy; in the ER if severe. - COVID & INFLUENZA A/B NAAT, ROUTINE Chris Rendon MD documented in this encounter [facility] 12-26-2022 Note HNO ID: [id number] Author: Alivia Leyva PA-C Service: ? Author Type: Physician Object Oriented Programmer Type: Progress Notes Filed: 12/26/2022 9:17 AM Note Text: 67 year old female with c/o here for follow up on fluoxetine. F/U on medication start: fluoxetine 10 mg daily Feeling better, can tell medication is making a difference. Less anxious. Sleeping with trazodone, not waking as often. Talked with daughter about her feelings, daughter shut down the conversation by saying she was traumatized by the stroke event. Tawana felt she was again in a hopeless situation Went to counselor who has also counseled her daughter and ex-, and advised to understand they are unlikely to be sympathetic or change. Feels today that she will just have to accept the relationship Found someone she liked dated for a few months, and he stopped. Discussed relationship and details regarding his friend, and also with his ex- and daughter. He called later and apologized but also stated he need to take time to work on his own issues. HISTORIES FAMILY HISTORY Problem Relation Age of Onset Cancer Father LUNG Hypertension Mother Cataract Mother Heart Maternal Grandfather Cancer Maternal Aunt BLADDER Cancer Maternal Uncle KIDNEY Diabetes Maternal Uncle Diabetes Maternal Aunt other (HODGKINS) Sister Lung Cancer Breast Cancer Maternal Aunt Hyperlipidemia Son Hypertension Son PAST MEDICAL HISTORY Diagnosis Date Abnormal glandular Papanicolaou smear of cervix Abn. Pap smear (cervix) Asymptomatic varicose veins Depressive disorder, not elsewhere classified 09/27/2006 Hearing decreased Hyperlipidemia Hypothyroidism 2010 HERNAN on CPAP [facility] Peripheral vascular disease, unspecified (HCC) varicose veins Sleep apnea CPAP Supraspinatus tendon tear 04/03/2012 right shoulder Vitamin B12 deficiency Vitamin D deficiency 10/30/2013 PAST SURGICAL HISTORY Procedure Laterality Date COLPOSCOPY CERVIX UPPER/ADJACENT VAGINA Colposcopy CORRECT BUNION,SIMPLE 01-31-12 Bunion, left DILATION AND CURETTAGE DXAND/THER NONOBSTETRIC 1980s Dilation AND curettage LIG/TRNSXJ FLP TUBE ABDL/VAG APPR UNI/BI COMPLETE Tubal ligation PAST SURGICAL HISTORY OF 11/2003 breast biopsy right, benign PAST SURGICAL HISTORY OF 1997 wrist surgery - after fracture, right PAST SURGICAL HISTORY OF 06/28/13 arthroscopy with open rotator cuff repair Social History Tobacco Use Smoking status: Former Packs/day: 1.00 Years: 15.00 Additional pack years: 0.00 Total pack years: 15.00 Types: Cigarettes Quit date: 02/12/1987 Years since quittin.8 Smokeless tobacco: Never Vaping Use Vaping Use: Never used Substance Use Topics Alcohol use: No Drug use: No ACTIVE PROBLEM LIST Asymptomatic Varicose Veins Dyslipidemia Chronic Low Back Pain Degenerative Joint Disease Metatarsalgia Metatarsus Primus Varus Other Hammer Toe (Acquired) Hallux Valgus (Acquired) Insomnia Anxiety Depression Vitamin D Deficiency Hernan (Obstructive Sleep Apnea) Excessive Daytime Sleepiness Hypothyroidism Atypical Nevus of Shoulder Atypical Nevus of Back Vitreous Floaters of Both Eyes Dry Eye Syndrome Encounter for Screening Mammogram for Malignant Neoplasm of Breast Acute Bilateral Low Back Pain With Right-Sided Sciatica Somatic Dysfunction of Pelvic Region Somatic Dysfunction of Lumbar Region Acute Back Pain With Sciatica Situational Stress Fatigue Concentration 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 Ddd (Degenerative Disc Disease), Lumbar Hypothyroidism, Acquired Well Adult Exam Vertebral Artery Stenosis, 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 90 capsule 1 dextroamphetamine-amphetamine (ADDERALL) 10 mg tablet Take 0.5-1 tablets by mouth once daily for 30 days. 30 tablet 0 mometasone (ELOCON) 0.1 % ointment Apply to affected area once daily as needed. Once daily as needed on rash 15 g 2 mupirocin (BACTROBAN) 2 % ointment Apply to affected area twice daily as needed (skin infection). 30 g 0 ARMOUR THYROID 60 mg tablet Take 1 tablet by mouth once daily. 90 tablet 1 omega 5-ltq-ivm-fish oil (FISH OIL) 100-160-1,000 mg cap Take 1 capsul (more content not included)... [facility] 12-26-2022 Miscellaneous Notes The following approved medication requests have been transmitted electronically. Requested Prescriptions Signed Prescriptions Disp Refills dextroamphetamine-amphetamine (ADDERALL) 10 mg tablet 30 tablet 0 Sig: Take 0.5-1 tablets by mouth once daily for 30 days. Authorizing Provider: IVANA MITCHELL APRN.CNP PDMP website checked and validated. All prescriptions have been APPROPRIATELY filled. No suspicious activity was identified. 12/26/2022 by Ivana Mitchell CNP. Last Office Visit: 10/19/2022 Future Office Visit: 01/25/2023 Requested Prescriptions Pending Prescriptions Disp Refills dextroamphetamine-amphetamine (ADDERALL) 10 mg tablet 30 tablet 0 Sig: Take 0.5-1 tablets by mouth once daily for 30 days. Date of Last Labs: 10/14/2022 Patient has been identified by name and date of : Yes Last office visit in this department: Visit date not found RX INSTRUCTIONS: Patient aware RX will be sent to pharmacy. No need to notify patient. Patient phones requesting refills as follows: Requested Prescriptions Pending Prescriptions Disp Refills dextroamphetamine-amphetamine (ADDERALL) 10 mg tablet 30 tablet 0 Sig: Take 0.5-1 tablets by mouth once daily for 30 days. Please review and advise. Lizzy Peck documented in this encounter [facility] 12-26-2022 History of Present illness Narrative 67 year old female with c/o here for follow up on fluoxetine. F/U on medication start: fluoxetine 10 mg daily Feeling better, can tell medication is making a difference. Less anxious. Sleeping with trazodone, not waking as often. Talked with daughter about her feelings, daughter shut down the conversation by saying she was traumatized by the stroke event. Tawana felt she was again in a hopeless situation Went to counselor who has also counseled her daughter and ex-, and advised to understand they are unlikely to be sympathetic or change. Feels today that she will just have to accept the relationship Found someone she liked dated for a few months, and he stopped. Discussed relationship and details regarding his friend, and also with his ex- and daughter. He called later and apologized but also stated he need to take time to work on his own issues. HISTORIES FAMILY HISTORY Problem Relation Age of Onset Cancer Father LUNG Hypertension Mother Cataract Mother Heart Maternal Grandfather Cancer Maternal Aunt BLADDER Cancer Maternal Uncle KIDNEY Diabetes Maternal Uncle Diabetes Maternal Aunt other (HODGKINS) Sister Lung Cancer Breast Cancer Maternal Aunt Hyperlipidemia Son Hypertension Son PAST MEDICAL HISTORY Diagnosis Date Abnormal glandular Papanicolaou smear of cervix Abn. Pap smear (cervix) Asymptomatic varicose veins Depressive disorder, not elsewhere classified 09/27/2006 Hearing decreased Hyperlipidemia Hypothyroidism 2010 HERNAN on CPAP [facility] Peripheral vascular disease, unspecified (HCC) varicose veins Sleep apnea CPAP Supraspinatus tendon tear 04/03/2012 right shoulder Vitamin B12 deficiency Vitamin D deficiency 10/30/2013 PAST SURGICAL HISTORY Procedure Laterality Date COLPOSCOPY CERVIX UPPER/ADJACENT VAGINA Colposcopy CORRECT BUNION,SIMPLE 01-31-12 Bunion, left DILATION & CURETTAGE DX&/THER NONOBSTETRIC 1980s Dilation & curettage LIG/TRNSXJ FLP TUBE ABDL/VAG APPR UNI/BI COMPLETE Tubal ligation PAST SURGICAL HISTORY OF 11/2003 breast biopsy right, benign PAST SURGICAL HISTORY OF 1997 wrist surgery - after fracture, right PAST SURGICAL HISTORY OF 06/28/13 arthroscopy with open rotator cuff repair Social History Tobacco Use Smoking status: Former Packs/day: 1.00 Years: 15.00 Additional pack years: 0.00 Total pack years: 15.00 Types: Cigarettes Quit date: 02/12/1987 Years since quittin.8 Smokeless tobacco: Never Vaping Use Vaping Use: Never used Substance Use Topics Alcohol use: No Drug use: No ACTIVE PROBLEM LIST Asymptomatic Varicose Veins Dyslipidemia Chronic Low Back Pain Degenerative Joint Disease Metatarsalgia Metatarsus Primus Varus Other Hammer Toe (Acquired) Hallux Valgus (Acquired) Insomnia Anxiety Depression Vitamin D Deficiency Hernan (Obstructive Sleep Apnea) Excessive Daytime Sleepiness Hypothyroidism Atypical Nevus of Shoulder Atypical Nevus of Back Vitreous Floaters of Both Eyes Dry Eye Syndrome Encounter for Screening Mammogram for Malignant Neoplasm of Breast Acute Bilateral Low Back Pain With Right-Sided Sciatica Somatic Dysfunction of Pelvic Region Somatic Dysfunction of Lumbar Region Acute Back Pain With Sciatica Situational Stress Fatigue Concentration 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 Ddd (Degenerative Disc Disease), Lumbar Hypothyroidism, Acquired Well Adult Exam Vertebral Artery Stenosis, 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 90 capsule 1 dextroamphetamine-amphetamine (ADDERALL) 10 mg tablet Take 0.5-1 tablets by mouth once daily for 30 days. 30 tablet 0 mometasone (ELOCON) 0.1 % ointment Apply to affected area once daily as needed. Once daily as needed on rash 15 g 2 mupirocin (BACTROBAN) 2 % ointment Apply to affected area twice daily as needed (skin infection). 30 g 0 ARMOUR THYROID 60 mg tablet Take 1 tablet by mouth once daily. 90 tablet 1 omega 7-jif-xst-fish oil (FISH OIL) 100-160-1,000 mg cap Take 1 capsule by mouth. traZODone (DESYREL) 50 mg tablet TAKE 1 TO 2 TABLETS AT BEDTIME FOR SLEEP 90 tablet 0 selenium 200 mcg cap Take by mouth. zinc sulfate (ZINC-15 ORAL) Take by mouth. CPAP Initiate CPAP @ 6 cm of water with humidification. Mask (per patient preference) optional chin strap (if indicated) , filters, tubing, humidifier and lifetime supplies. 1 Device 0 vitamin B complex (B COMPLEX ORAL) Take 1 tablet by mouth once daily. L-LYSINE ORAL Take 1 capsule by mouth once daily. cyclobenzaprine (FLEXERIL) 10 mg tablet Take 1 tablet by mouth three times daily as needed for Muscle Spasm. 30 tablet 0 Cholecalciferol, Vitamin D3, 5,000 unit cap Take 1 capsule by mouth once daily. 90 capsule 3 ascorbic acid, vitamin C, (VITAMIN C) 500 mg tablet Take 1 tablet by mouth three times daily. 270 tablet 3 PROPYLENE GLYCOL/PEG 400 (BLINK TEARS LUBRICATING) Eye Drops Use 1 Drop in both eyes four times daily. Aspirin 81 mg Tab Take 4 tablets by mouth one time only for 1 dose. 4 tablet 0 Current Facility-Administered Medications Medication Dose Route Frequency Provider Last Rate Last Admin perflutren lipid microspheres 1.3 mL in NaCl (PF) 0.9% 10 mL injection (DEFINITY) INTRAVENOUS DIRECTED PRN Alivia Leyva PA-C sodium chloride 0.9 % (flush) 10 mL (BD POSIFLUSH) 10 mL INTRAVENOUS DIRECTED PRN Alivia Leyva PA-C SHINGRIX VACCINE(1 of 2) Never done MAMMOGRAM due on 11/21/2019 BONE DENSITY Never done EXAM: BP 110/60 Pulse 67 Resp 16 Wt 55.8 kg (123 lb) LMP 10/13/2006 SpO2 97% BMI 21.65 kg/m Pleasant adult woman in no acute distress. Alert and oriented all spheres. Normal affect and cognition. Speech normal. No deficits to learning or comprehension. Skin warm, dry, pink to lips and nailbeds. Normal turgor. Respirations regular and unlabored. Extrem: no clubbing or cyanosis. Edema: none. Extremities are warm and pink with prompt capillary refill. ASSESSMENT/PLAN: 1. Situational insomnia - ICD9: 307.41, ICD10: F51.09 2. Anxiety with depression - ICD9: 300.4, ICD10: F41.8 Continue Floxetine which seems to be helping - TRAZODONE 50 MG TABLET Discussed hopeless feeling for improvement in daughter relationship: was able to self identify a great opportunity to explore what daughter meant by being traumatized, and discussed validating and working through her daughter's experience while also working toward a better compromise. She plans to have an appointment with her daughter to explore how she feels and to continue working toward a win-win. With new friend, she plans to let him contact her, but otherwise will move on. F/u as needed with me or with Dr. Arias. 35 minute visit Alivia Leyva PA-C documented in this encounter [facility] 11-25-2022 Note HNO ID: [id number] Author: Alivia Leyva PA-C Service: ? Author Type: Physician Object Oriented Programmer Type: Progress Notes Filed: 11/25/2022 5:53 PM Note Text: 67 year old female with c/o insomnia over last three weeks. Doesn't seem to matter when she goes to bed, seems to wake 2-3h and then can't go back to sleep. Drinks chamomile tea and water in the evening. Has trazodone 50 mg and has taken doses from 25 to 75 mg but states when she gets higher doses causes hangover in the morning which she does not like. Stopped fluoxetine a year ago because she felt she was stable and can go without. Notes that she has been steadily more melancholy and irritable. Much of this surrounds relationship with her daughter who seems to be more open to her father and his new , vacationing together, allowing her granddaughter to stay overnight with them but not with her. Feels the daughter hasn't forgiven for divorce, loveless marriage. She is grandmother who babysits . Due to her history of stroke, daughter does not want her to take her granddaughter anywhere that she would have to drive. She had no driving restrictions, nor has any specialist been concerned about her ability. She knows her daughter loves her but does not feel she has been able to talk about these issues openly. Identifies a sense of feeling trapped. No thoughts of self injury. Continues to work at [employer], job that she enjoys related to the social environment. Feels content at home and in no particular need. HISTORIES FAMILY HISTORY Problem Relation Age of Onset Cancer Father LUNG Hypertension Mother Cataract Mother Heart Maternal Grandfather Cancer Maternal Aunt BLADDER Cancer Maternal Uncle KIDNEY Diabetes Maternal Uncle Diabetes Maternal Aunt other (HODGKINS) Sister Lung Cancer Breast Cancer Maternal Aunt Hyperlipidemia Son Hypertension Son PAST MEDICAL HISTORY Diagnosis Date Abnormal glandular Papanicolaou smear of cervix Abn. Pap smear (cervix) Asymptomatic varicose veins Depressive disorder, not elsewhere classified 09/27/2006 Hearing decreased Hyperlipidemia Hypothyroidism 2010 HERNAN on CPAP [facility] Peripheral vascular disease, unspecified (HCC) varicose veins Sleep apnea CPAP Supraspinatus tendon tear 04/03/2012 right shoulder Vitamin B12 deficiency Vitamin D deficiency 10/30/2013 PAST SURGICAL HISTORY Procedure Laterality Date COLPOSCOPY CERVIX UPPER/ADJACENT VAGINA Colposcopy CORRECT BUNION,SIMPLE 9-18-12 Bunion, left DILATION AND CURETTAGE DXAND/THER NONOBSTETRIC 1980s Dilation AND curettage LIG/TRNSXJ FLP TUBE ABDL/VAG APPR UNI/BI COMPLETE Tubal ligation PAST SURGICAL HISTORY OF 11/2003 breast biopsy right, benign PAST SURGICAL HISTORY OF 1997 wrist surgery - after fracture, right PAST SURGICAL HISTORY OF 06/28/13 arthroscopy with open rotator cuff repair Social History Tobacco Use Smoking status: Former Packs/day: 1.00 Years: 15.00 Total pack years: 15.00 Types: Cigarettes Quit date: 02/12/1987 Years since quittin.8 Smokeless tobacco: Never Vaping Use Vaping Use: Never used Substance Use Topics Alcohol use: No Drug use: No ACTIVE PROBLEM LIST Asymptomatic Varicose Veins Dyslipidemia Chronic Low Back Pain Degenerative Joint Disease Metatarsalgia Metatarsus Primus Varus Other Hammer Toe (Acquired) Hallux Valgus (Acquired) Insomnia Anxiety Depression Vitamin D Deficiency Hernan (Obstructive Sleep Apnea) Excessive Daytime Sleepiness Hypothyroidism Atypical Nevus of Shoulder Atypical Nevus of Back Vitreous Floaters of Both Eyes Dry Eye Syndrome Encounter for Screening Mammogram for Malignant Neoplasm of Breast Acute Bilateral Low Back Pain With Right-Sided Sciatica Somatic Dysfunction of Pelvic Region Somatic Dysfunction of Lumbar Region Acute Back Pain With Sciatica Situational Stress Fatigue Concentration 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 Ddd (Degenerative Disc Disease), Lumbar Hypothyroidism, Acquired Well Adult Exam Vertebral Artery Stenosis, 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 (Hcc) Situational Insomnia Anxiety With Depression Attention Deficit Disorder (Add) Without Hyperactivity Left Wrist Pain Vitamin B12 Deficiency Hyperglycemia Exposure to Mercury Foot Pain, Right Acquired Deformity of Right Foot Double Vision Age-Related Cataract of Both Eyes Occlusion and Stenosis of Right Vertebral Artery Hx of Ischemic Vertebrobasilar Artery Cerebellar Stroke Sob (Shortness of Breath) Tendinitis of Right Ankle Hair Thinning Current Outpatient Medications Medication Sig Dispense Refill dextroamphetamine-amphetamine (ADDERALL) 10 mg tablet Take 0.5-1 tablets by mouth once daily for 30 days. 30 tablet 0 mometasone (ELOCON) (more content not included)... [facility] 11-25-2022 History of Present illness Narrative 67 year old female with c/o insomnia over last three weeks. Doesn't seem to matter when she goes to bed, seems to wake 2-3h and then can't go back to sleep. Drinks chamomile tea and water in the evening. Has trazodone 50 mg and has taken doses from 25 to 75 mg but states when she gets higher doses causes hangover in the morning which she does not like. Stopped fluoxetine a year ago because she felt she was stable and can go without. Notes that she has been steadily more melancholy and irritable. Much of this surrounds relationship with her daughter who seems to be more open to her father and his new , vacationing together, allowing her granddaughter to stay overnight with them but not with her. Feels the daughter hasn't forgiven for divorce, loveless marriage. She is grandmother who babysits . Due to her history of stroke, daughter does not want her to take her granddaughter anywhere that she would have to drive. She had no driving restrictions, nor has any specialist been concerned about her ability. She knows her daughter loves her but does not feel she has been able to talk about these issues openly. Identifies a sense of feeling trapped. No thoughts of self injury. Continues to work at [employer], job that she enjoys related to the social environment. Feels content at home and in no particular need. HISTORIES FAMILY HISTORY Problem Relation Age of Onset Cancer Father LUNG Hypertension Mother Cataract Mother Heart Maternal Grandfather Cancer Maternal Aunt BLADDER Cancer Maternal Uncle KIDNEY Diabetes Maternal Uncle Diabetes Maternal Aunt other (HODGKINS) Sister Lung Cancer Breast Cancer Maternal Aunt Hyperlipidemia Son Hypertension Son PAST MEDICAL HISTORY Diagnosis Date Abnormal glandular Papanicolaou smear of cervix Abn. Pap smear (cervix) Asymptomatic varicose veins Depressive disorder, not elsewhere classified 09/27/2006 Hearing decreased Hyperlipidemia Hypothyroidism 2010 HERNAN on CPAP [facility] Peripheral vascular disease, unspecified (HCC) varicose veins Sleep apnea CPAP Supraspinatus tendon tear 04/03/2012 right shoulder Vitamin B12 deficiency Vitamin D deficiency 10/30/2013 PAST SURGICAL HISTORY Procedure Laterality Date COLPOSCOPY CERVIX UPPER/ADJACENT VAGINA Colposcopy CORRECT BUNION,SIMPLE 01-31-12 Bunion, left DILATION & CURETTAGE DX&/THER NONOBSTETRIC 1980s Dilation & curettage LIG/TRNSXJ FLP TUBE ABDL/VAG APPR UNI/BI COMPLETE Tubal ligation PAST SURGICAL HISTORY OF 11/2003 breast biopsy right, benign PAST SURGICAL HISTORY OF 1997 wrist surgery - after fracture, right PAST SURGICAL HISTORY OF 06/28/13 arthroscopy with open rotator cuff repair Social History Tobacco Use Smoking status: Former Packs/day: 1.00 Years: 15.00 Total pack years: 15.00 Types: Cigarettes Quit date: 02/12/1987 Years since quittin.8 Smokeless tobacco: Never Vaping Use Vaping Use: Never used Substance Use Topics Alcohol use: No Drug use: No ACTIVE PROBLEM LIST Asymptomatic Varicose Veins Dyslipidemia Chronic Low Back Pain Degenerative Joint Disease Metatarsalgia Metatarsus Primus Varus Other Hammer Toe (Acquired) Hallux Valgus (Acquired) Insomnia Anxiety Depression Vitamin D Deficiency Hernan (Obstructive Sleep Apnea) Excessive Daytime Sleepiness Hypothyroidism Atypical Nevus of Shoulder Atypical Nevus of Back Vitreous Floaters of Both Eyes Dry Eye Syndrome Encounter for Screening Mammogram for Malignant Neoplasm of Breast Acute Bilateral Low Back Pain With Right-Sided Sciatica Somatic Dysfunction of Pelvic Region Somatic Dysfunction of Lumbar Region Acute Back Pain With Sciatica Situational Stress Fatigue Concentration 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 Ddd (Degenerative Disc Disease), Lumbar Hypothyroidism, Acquired Well Adult Exam Vertebral Artery Stenosis, 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 (Hcc) Situational Insomnia Anxiety With Depression Attention Deficit Disorder (Add) Without Hyperactivity Left Wrist Pain Vitamin B12 Deficiency Hyperglycemia Exposure to Mercury Foot Pain, Right Acquired Deformity of Right Foot Double Vision Age-Related Cataract of Both Eyes Occlusion and Stenosis of Right Vertebral Artery Hx of Ischemic Vertebrobasilar Artery Cerebellar Stroke Sob (Shortness of Breath) Tendinitis of Right Ankle Hair Thinning Current Outpatient Medications Medication Sig Dispense Refill dextroamphetamine-amphetamine (ADDERALL) 10 mg tablet Take 0.5-1 tablets by mouth once daily for 30 days. 30 tablet 0 mometasone (ELOCON) 0.1 % ointment Apply to affected area once daily as needed. Once daily as needed on rash 15 g 2 mupirocin (BACTROBAN) 2 % ointment Apply to affected area twice daily as needed (skin infection). 30 g 0 predniSONE (DELTASONE) 20 mg tablet Take 1 tablet by mouth once daily. With food 7 tablet 0 hydrOXYzine HCl (ATARAX) 25 mg tablet Take 0.5-1 tablets by mouth four times daily as needed for itching/rash. 20 tablet 0 ARMOUR THYROID 60 mg tablet Take 1 tablet by mouth once daily. 90 tablet 1 omega 3-gnb-teo-fish oil (FISH OIL) 100-160-1,000 mg cap Take 1 capsule by mouth. traZODone (DESYREL) 50 mg tablet TAKE 1 TO 2 TABLETS AT BEDTIME FOR SLEEP 90 tablet 0 selenium 200 mcg cap Take by mouth. zinc sulfate (ZINC-15 ORAL) Take by mouth. cyclobenzaprine (FLEXERIL) 10 mg tablet Take 1 tablet by mouth three times daily as needed for muscle spasm. 30 tablet 0 CPAP Initiate CPAP @ 6 cm of water with humidification. Mask (per patient preference) optional chin strap (if indicated) , filters, tubing, humidifier and lifetime supplies. 1 Device 0 vitamin B complex (B COMPLEX ORAL) Take 1 tablet by mouth once daily. L-LYSINE ORAL Take 1 capsule by mouth once daily. aspirin 325 mg tablet Take 1 tablet by mouth once daily. cyclobenzaprine (FLEXERIL) 10 mg tablet Take 1 tablet by mouth three times daily as needed for Muscle Spasm. 30 tablet 0 Cholecalciferol, Vitamin D3, 5,000 unit cap Take 1 capsule by mouth once daily. 90 capsule 3 ascorbic acid, vitamin C, (VITAMIN C) 500 mg tablet Take 1 tablet by mouth three times daily. 270 tablet 3 PROPYLENE GLYCOL/PEG 400 (BLINK TEARS LUBRICATING) Eye Drops Use 1 Drop in both eyes four times daily. Aspirin 81 mg Tab Take 4 tablets by mouth one time only for 1 dose. 4 tablet 0 Current Facility-Administered Medications Medication Dose Route Frequency Provider Last Rate Last Admin perflutren lipid microspheres 1.3 mL in NaCl (PF) 0.9% 10 mL injection (DEFINITY) INTRAVENOUS DIRECTED PRN Alivia Leyva PA-C sodium chloride 0.9 % (flush) 10 mL (BD POSIFLUSH) 10 mL INTRAVENOUS DIRECTED PRN Alivia Leyva PA-C SHINGRIX VACCINE(1 of 2) Never done MAMMOGRAM due on 11/21/2019 BONE DENSITY Never done EXAM: BP 116/68 Pulse 87 Resp 16 Wt 57.6 kg (127 lb) LMP 10/13/2006 SpO2 100% BMI 22.35 kg/m Pleasant well-appearing middle-aged adult woman in no acute distress. Alert and oriented all spheres. Mood mildly depressed, somewhat tearful intermittently. Easy report. Speech is normal. No barriers to learning. No perceptions. Skin warm, dry, pink to lips and nailbeds. Normal turgor. Respirations regular and unlabored. HEENT: NCAT. No scleral icterus or conjunctival injection. TM's clear. Nose and oropharynx free from injection or lesion. Oral membranes moist and pink. No cervical lymph nodes. Thyroid non-tender, no masses, or enlargement. Carotids pulses 2+/4+ without bruits. No JVD with HOB at 30 degrees. Chest is normal shape. Lungs are clear to all allen with good air exchange through out. HRRR without murmur or gallop. No lifts, heaves, or rubs. Extrem: no clubbing or cyanosis. Edema: none. Extremities are warm and pink with prompt capillary refill. ASSESSMENT/PLAN: 1. Adjustment insomnia - ICD9: 307.41, ICD10: F51.02 (primary diagnosis) 2. Anxiety with depression - ICD9: 300.4, ICD10: F41.8 Recommended fluid intake to stop in early evening around 5 PM based on her schedule. Try to get fluids in before that time so she is not waking at night. We discussed the effects of unresolved anger and grief which may also be stimulating restlessness at night since she has not yet resolved her problems with this appointment and managing her grandchildren. We discussed the need to only her only problem which is her disappointment, not try to fix her daughter's problem which she feels is a sense of unfairness. Encouraged her to approach with seeking to understand first and then to be understood, asking open-ended questions with how and what rather than why. Encouraged her to be vulnerable about her hurt feelings and sense of being for lack of a better word second rate to her father and stepmother. We did also discuss the possible posttrauma stress her daughter experienced having been present when her stroke took place and having to summon and follow emergency services. Also encouraged discussion on the fact that he has no medical restrictions on driving and/or to find alternative ways for transportation such as having a friend or relative drive she and her granddaughter, or taking a taxi when they want to go on an outing. - FLUOXETINE 10 MG CAPSULE 3. Hx of ischemic vertebrobasilar artery cerebellar stroke - ICD9: V12.54, ICD10: Z86.73 40-minute appointment almost all spent in [id number] counseling and education. Follow-up 4 weeks to see how fluoxetine and fluid restrictions are affecting sleep Alivia Leyva PA-C documented in this encounter [facility] 10-19-2022 Note HNO ID: [id number] Author: Shin Arias, DO Service: ? Author Type: Physician Type: Progress Notes Filed: 10/19/2022 11:09 AM Note Text: CC: Henry Oliveira is a 67 year old female who presents to the office for follow up HPI: Seen in office 2 weeks ago as below Rash on right hand and skin changes around left great toe, using Mometasone ointment with benefit. Had this ointment at home. Wasn't getting better with triamcinolone cream given. 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 Hx of stroke and is watching her 4 year old and 18 month old granddaughters 2 days a week and enjoying this. No new neurologic symptoms Hair is thinning, + fatigue, taking her armour thyroid supplement for hypothyroidism, thinning hair mostly in front, mother did have alopecia and thinning early in her life as well. Hyperlipidemia, diet controlled, refuses statin therapy Currently History of stroke 4 years ago, no new neurologic symptoms. Still able to drive without difficulty. Sometimes with low back pain/aching that comes and goes with prolonged standing or walking. 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 Did have some b/l foot soreness and low back pain at work and end of the day, better with rest. No injuries. Bunions b/l feet and hammer toe 2nd toe left foot, has been seen by Podiatry, doesn't want to have surgery if doesn't have to Fatigue, stable, is taking supplements for B complex and vitamin D and trying to eat healthy diet. Mood, still sometimes very frustrated with her daughter and her lack of wanting to be in her life, still watching her 2 granddaughters several days a week and enjoying this although makes her feel tired afterwards. No SI or HI. Doesn't want to start new medication for mood. Hypothyroidism, taking armour thyroid supplement, feels stable TSH Date Value Ref Range Status 10/14/2022 1.130 0.270 - 4.200 mIU/L Final Free T4 Date Value Ref Range Status 10/14/2022 1.2 0.9 - 1.7 ng/dL Final Free T3 5.2 10/14/2022 HPL, trying to cut out sugar from her diet, has made drastic dietary changes, doesn't want to start statin therapy Cholesterol, Total Date Value Ref Range Status 10/14/2022 200 (H) <200 mg/dL Final Comment: <200 mg/dL, Desirable 200-239 mg/dL, Borderline high >239 mg/dL, High HDL Cholesterol Date Value Ref Range Status 10/14/2022 71 >39 mg/dL Final Comment: 40-59 mg/dL, Acceptable >59 mg/dL, High: Negative risk factor for coronary heart disease <40 mg/dL, Low: Positive risk factor for coronary heart disease LDL Cholesterol Date Value Ref Range Status 10/14/2022 121 (H) <100 mg/dL Final Comment: <100 mg/dL, Optimal 100-129 mg/dL, Near optimal/above optimal 130-159 mg/dL, Borderline high 160-189 mg/dL, High >189 mg/dL, Very high Secondary prevention optimal LDL Cholesterol levels are recommended to be < 70 mg/dL Triglyceride Date Value Ref Range Status 10/14/2022 38 <150 mg/dL Final Comment: <150 mg/dL, Normal 150-199 mg/dL, Borderline high 200-499 mg/dL, High >499 mg/dL, Very high Glucose (mg/dL) Date Value 10/14/2022 83 06/30/2021 88 Potassium (mmol/L) Date Value 10/14/2022 3.9 06/30/2021 4.8 Sodium (mmol/L) Date Value 10/14/2022 143 06/30/2021 139 Chloride (mmol/L) Date Value 10/14/2022 106 06/30/2021 103 CO2 (mmol/L) Date Value 10/14/2022 25 06/30/2021 29 Creatinine (mg/dL) Date Value 10/14/2022 0.56 06/30/2021 0.57 BUN (mg/dL) Date Value 10/14/2022 9 06/30/2021 13 Anion Gap (mmol/L) Date Value 10/14/2022 12 06/30/2021 7 Calcium (mg/dL) Date Value 06/30/2021 9.6 Calcium, Total (mg/dL) Date Value 10/14/2022 9.7 Protein, Total (g/dL) Date Value 10/14/2022 6.6 06/30/2021 7.0 Albumin (g/dL) Date Value 10/14/2022 4.5 06/30/2021 4.4 Bilirubin, Total (mg/dL) Date Value 10/14/2022 0.5 06/30/2021 0.4 Alkaline Phosphatase (U/L) Date Value 10/14/2022 104 06/30/2021 106 AST (U/L) Date Value 10/14/2022 20 06/30/2021 23 ALT (U/L) Date Value 10/14/2022 14 06/30/2021 16 Hemoglobin (g/dL) Date Value 10/14/2022 13.9 06/30/2021 13.8 Hematocrit (%) Date Value 10/14/2022 42.5 06/30/2021 42.5 WBC (k/uL) Date Value 10/14/2022 5.09 06/30/2021 5.11 PAST MEDICAL HISTORY Diagnosis Date Abnormal glandular Papanicolaou smear of cervix Abn. Pap smear (cervix) Asymptomatic varicose veins Depressive disorder, not elsewhere classified 09/27/2006 Hearing decreased Hyperlipidemia Hypothyroidism 2010 HERNAN on CPAP [facility] Peripheral vascular disease, unspecified (HCC) varicose veins Sleep apnea CPAP Supraspinatus tendon tear 04/03/2012 right shoulder Vitamin B12 deficiency Vitamin D deficiency 10/30/2013 PAST SURGICAL HISTORY Procedure Laterality Date COLPOSCOPY CERVIX UPPER/ADJACENT VAGINA (more content not included)... [facility] 10-19-2022 History of Present illness Narrative CC: Henry Oliveira is a 67 year old female who presents to the office for follow up HPI: Seen in office 2 weeks ago as below Rash on right hand and skin changes around left great toe, using Mometasone ointment with benefit. Had this ointment at home. Wasn't getting better with triamcinolone cream given. 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 Hx of stroke and is watching her 4 year old and 18 month old granddaughters 2 days a week and enjoying this. No new neurologic symptoms Hair is thinning, + fatigue, taking her armour thyroid supplement for hypothyroidism, thinning hair mostly in front, mother did have alopecia and thinning early in her life as well. Hyperlipidemia, diet controlled, refuses statin therapy Currently History of stroke 4 years ago, no new neurologic symptoms. Still able to drive without difficulty. Sometimes with low back pain/aching that comes and goes with prolonged standing or walking. 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 Did have some b/l foot soreness and low back pain at work and end of the day, better with rest. No injuries. Bunions b/l feet and hammer toe 2nd toe left foot, has been seen by Podiatry, doesn't want to have surgery if doesn't have to Fatigue, stable, is taking supplements for B complex and vitamin D and trying to eat healthy diet. Mood, still sometimes very frustrated with her daughter and her lack of wanting to be in her life, still watching her 2 granddaughters several days a week and enjoying this although makes her feel tired afterwards. No SI or HI. Doesn't want to start new medication for mood. Hypothyroidism, taking armour thyroid supplement, feels stable TSH Date Value Ref Range Status 10/14/2022 1.130 0.270 - 4.200 mIU/L Final Free T4 Date Value Ref Range Status 10/14/2022 1.2 0.9 - 1.7 ng/dL Final Free T3 5.2 10/14/2022 HPL, trying to cut out sugar from her diet, has made drastic dietary changes, doesn't want to start statin therapy Cholesterol, Total Date Value Ref Range Status 10/14/2022 200 (H) <200 mg/dL Final Comment: <200 mg/dL, Desirable 200-239 mg/dL, Borderline high >239 mg/dL, High HDL Cholesterol Date Value Ref Range Status 10/14/2022 71 >39 mg/dL Final Comment: 40-59 mg/dL, Acceptable >59 mg/dL, High: Negative risk factor for coronary heart disease <40 mg/dL, Low: Positive risk factor for coronary heart disease LDL Cholesterol Date Value Ref Range Status 10/14/2022 121 (H) <100 mg/dL Final Comment: <100 mg/dL, Optimal 100-129 mg/dL, Near optimal/above optimal 130-159 mg/dL, Borderline high 160-189 mg/dL, High >189 mg/dL, Very high Secondary prevention optimal LDL Cholesterol levels are recommended to be < 70 mg/dL Triglyceride Date Value Ref Range Status 10/14/2022 38 <150 mg/dL Final Comment: <150 mg/dL, Normal 150-199 mg/dL, Borderline high 200-499 mg/dL, High >499 mg/dL, Very high Glucose (mg/dL) Date Value 10/14/2022 83 06/30/2021 88 Potassium (mmol/L) Date Value 10/14/2022 3.9 06/30/2021 4.8 Sodium (mmol/L) Date Value 10/14/2022 143 06/30/2021 139 Chloride (mmol/L) Date Value 10/14/2022 106 06/30/2021 103 CO2 (mmol/L) Date Value 10/14/2022 25 06/30/2021 29 Creatinine (mg/dL) Date Value 10/14/2022 0.56 06/30/2021 0.57 BUN (mg/dL) Date Value 10/14/2022 9 06/30/2021 13 Anion Gap (mmol/L) Date Value 10/14/2022 12 06/30/2021 7 Calcium (mg/dL) Date Value 06/30/2021 9.6 Calcium, Total (mg/dL) Date Value 10/14/2022 9.7 Protein, Total (g/dL) Date Value 10/14/2022 6.6 06/30/2021 7.0 Albumin (g/dL) Date Value 10/14/2022 4.5 06/30/2021 4.4 Bilirubin, Total (mg/dL) Date Value 10/14/2022 0.5 06/30/2021 0.4 Alkaline Phosphatase (U/L) Date Value 10/14/2022 104 06/30/2021 106 AST (U/L) Date Value 10/14/2022 20 06/30/2021 23 ALT (U/L) Date Value 10/14/2022 14 06/30/2021 16 Hemoglobin (g/dL) Date Value 10/14/2022 13.9 06/30/2021 13.8 Hematocrit (%) Date Value 10/14/2022 42.5 06/30/2021 42.5 WBC (k/uL) Date Value 10/14/2022 5.09 06/30/2021 5.11 PAST MEDICAL HISTORY Diagnosis Date Abnormal glandular Papanicolaou smear of cervix Abn. Pap smear (cervix) Asymptomatic varicose veins Depressive disorder, not elsewhere classified 09/27/2006 Hearing decreased Hyperlipidemia Hypothyroidism 2010 HERNAN on CPAP [facility] Peripheral vascular disease, unspecified (HCC) varicose veins Sleep apnea CPAP Supraspinatus tendon tear 04/03/2012 right shoulder Vitamin B12 deficiency Vitamin D deficiency 10/30/2013 PAST SURGICAL HISTORY Procedure Laterality Date COLPOSCOPY CERVIX UPPER/ADJACENT VAGINA Colposcopy CORRECT BUNION,SIMPLE 01-31-12 Bunion, left DILATION & CURETTAGE DX&/THER NONOBSTETRIC 1980s Dilation & curettage LIG/TRNSXJ FLP TUBE ABDL/VAG APPR UNI/BI COMPLETE Tubal ligation PAST SURGICAL HISTORY OF 11/2003 breast biopsy right, benign PAST SURGICAL HISTORY OF 1997 wrist surgery - after fracture, right PAST SURGICAL HISTORY OF 06/28/13 arthroscopy with open rotator cuff repair Current Outpatient Medications Medication Sig mometasone (ELOCON) 0.1 % ointment Apply to affected area once daily as needed. Once daily as needed on rash mupirocin (BACTROBAN) 2 % ointment Apply to affected area twice daily as needed (skin infection). dextroamphetamine-amphetamine (ADDERALL) 10 mg tablet Take 0.5-1 tablets by mouth once daily for 30 days. predniSONE (DELTASONE) 20 mg tablet Take 1 tablet by mouth once daily. With food hydrOXYzine HCl (ATARAX) 25 mg tablet Take 0.5-1 tablets by mouth four times daily as needed for itching/rash. ARMOUR THYROID 60 mg tablet Take 1 tablet by mouth once daily. omega 2-ugf-kcn-fish oil (FISH OIL) 100-160-1,000 mg cap Take 1 capsule by mouth. traZODone (DESYREL) 50 mg tablet TAKE 1 TO 2 TABLETS AT BEDTIME FOR SLEEP selenium 200 mcg cap Take by mouth. zinc sulfate (ZINC-15 ORAL) Take by mouth. cyclobenzaprine (FLEXERIL) 10 mg tablet Take 1 tablet by mouth three times daily as needed for muscle spasm. CPAP Initiate CPAP @ 6 cm of water with humidification. Mask (per patient preference) optional chin strap (if indicated) , filters, tubing, humidifier and lifetime supplies. vitamin B complex (B COMPLEX ORAL) Take 1 tablet by mouth once daily. L-LYSINE ORAL Take 1 capsule by mouth once daily. aspirin 325 mg tablet Take 1 tablet by mouth once daily. cyclobenzaprine (FLEXERIL) 10 mg tablet Take 1 tablet by mouth three times daily as needed for Muscle Spasm. Cholecalciferol, Vitamin D3, 5,000 unit cap Take 1 capsule by mouth once daily. ascorbic acid, vitamin C, (VITAMIN C) 500 mg tablet Take 1 tablet by mouth three times daily. PROPYLENE GLYCOL/PEG 400 (BLINK TEARS LUBRICATING) Eye Drops Use 1 Drop in both eyes four times daily. Aspirin 81 mg Tab Take 4 tablets by mouth one time only for 1 dose. Current Facility-Administered Medications Medication Dose Route Frequency perflutren lipid microspheres 1.3 mL in NaCl (PF) 0.9% 10 mL injection (DEFINITY) INTRAVENOUS DIRECTED PRN sodium chloride 0.9 % (flush) 10 mL (BD POSIFLUSH) 10 mL INTRAVENOUS DIRECTED PRN ALLERGIES Allergen Reactions Bactrim [Sulfametho* Hives Morphine Sulfate Itching Tea Tree Oil Rash Social History Tobacco Use Smoking status: Former Packs/day: 1.00 Years: 15.00 Pack years: 15.00 Types: Cigarettes Quit date: 02/12/1987 Years since quittin.7 Smokeless tobacco: Never Vaping Use Vaping Use: Never used Substance Use Topics Alcohol use: No Drug use: No ROS: See HPI PE: BP 130/74 Pulse 64 Temp (Src) 98.2 (Left Tympanic) Resp 16 Wt 129 lb (58.5kg) LMP 10/13/2006 Gen: A&OX3, NAD, non-toxic appearing HEENT: PERRLA, EOMs intact b/l, nares without drainage, pharynx without erythema, exudate, lesions, or drainage. Uvula midline. Neck: No LAD, no thyromegaly, no meningismus. CV: RRR, no murmur Lungs: CTA b/l, no wheezing Skin: mild redness right great toe around nailbed without signs of infection- eczema changes of feet Bunion b/l great toe, hammer toe on left foot 2nd toe Mild papular rash on hands by thumbs No edema, normal pulses Normal non focal neurologic exam ASSESSMENT/PLAN: 1. Elevated ferritin - ICD9: 790.6, ICD10: R79.89 (primary diagnosis) Resolved, now normal 2. Rash and nonspecific skin eruption - ICD9: 782.1, ICD10: R21 - improving, secondary to contact dermatitis/eczema, continue prn steroid cream 3. Elevated alkaline phosphatase level - ICD9: 790.5, ICD10: R74.8 - resolved, now normal 4. Dermatitis contact - ICD9: 692.9, ICD10: L25.9 - discussed skin care of rash - follow up if symptoms persist or worsen. 5. Hypothyroidism, unspecified type - ICD9: 244.9, ICD10: E03.9 - Instructed patient on importance of taking on an empty stomach either first thing in the morning or at bedtime. Stable - Behavioral intervention and - Continue current medications 6. Dyslipidemia - ICD9: 272.4, ICD10: E78.5 - Improving control - Counseled on healthy diet and regular exercise 7. Mood disorder (HCC) - ICD9: 296.90, ICD10: F39 Stable, chronic, situational 8. Fatigue, unspecified type - ICD9: 780.79, ICD10: R53.83 - stable 9. Hyperglycemia - ICD9: 790.29, ICD10: R73.9 Stable, improving with dietary changes, a1c at 5.1% Shin Arias DO Return if no improvement. Follow up with Shin Arias DO. To ER if develops chest pain, shortness of breath Discussed risks, benefits, alternatives, and potential side effects of medications. Patient/Guardian expressed understanding and agreed with the plan. See patient instructions. Shin Arias DO [address] [place] [address] documented in this encounter [facility] 10-05-2022 Note HNO ID: [id number] Author: Shin Arias DO Service: ? Author Type: Physician Type: Progress Notes Filed: 10/05/2022 10:54 AM Note Text: CC: Henry Oliveira is a 67 year old female who presents to the office for follow up HPI: Rash on right hand and skin changes around left great toe, using Mometasone ointment with benefit. Had this ointment at home. Wasn't getting better with triamcinolone cream given. 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 Hx of stroke and is watching her 4 year old and 18 month old granddaughters 2 days a week and enjoying this. No new neurologic symptoms Hair is thinning, + fatigue, taking her armour thyroid supplement for hypothyroidism, thinning hair mostly in front, mother did have alopecia and thinning early in her life as well. Hyperlipidemia, diet controlled, refuses statin therapy PAST MEDICAL HISTORY Diagnosis Date Abnormal glandular Papanicolaou smear of cervix Abn. Pap smear (cervix) Asymptomatic varicose veins Depressive disorder, not elsewhere classified 09/27/2006 Hearing decreased Hyperlipidemia Hypothyroidism 2010 HERNAN on CPAP [facility] Peripheral vascular disease, unspecified (HCC) varicose veins Sleep apnea CPAP Supraspinatus tendon tear 04/03/2012 right shoulder Vitamin B12 deficiency Vitamin D deficiency 10/30/2013 PAST SURGICAL HISTORY Procedure Laterality Date COLPOSCOPY CERVIX UPPER/ADJACENT VAGINA Colposcopy CORRECT BUNION,SIMPLE 01-31-12 Bunion, left DILATION AND CURETTAGE DXAND/THER NONOBSTETRIC 1980s Dilation AND curettage LIG/TRNSXJ FLP TUBE ABDL/VAG APPR UNI/BI COMPLETE Tubal ligation PAST SURGICAL HISTORY OF 11/2003 breast biopsy right, benign PAST SURGICAL HISTORY OF 1997 wrist surgery - after fracture, right PAST SURGICAL HISTORY OF 06/28/13 arthroscopy with open rotator cuff repair Current Outpatient Medications Medication Sig omega 0-wui-ruv-fish oil (FISH OIL) 100-160-1,000 mg cap Take 1 capsule by mouth. traZODone (DESYREL) 50 mg tablet TAKE 1 TO 2 TABLETS AT BEDTIME FOR SLEEP selenium 200 mcg cap Take by mouth. zinc sulfate (ZINC-15 ORAL) Take by mouth. vitamin B complex (B COMPLEX ORAL) Take 1 tablet by mouth once daily. L-LYSINE ORAL Take 1 capsule by mouth once daily. Cholecalciferol, Vitamin D3, 5,000 unit cap Take 1 capsule by mouth once daily. Aspirin 81 mg Tab Take 4 tablets by mouth one time only for 1 dose. mometasone (ELOCON) 0.1 % ointment Apply to affected area once daily as needed. Once daily as needed on rash mupirocin (BACTROBAN) 2 % ointment Apply to affected area twice daily as needed (skin infection). dextroamphetamine-amphetamine (ADDERALL) 10 mg tablet Take 0.5-1 tablets by mouth once daily for 30 days. predniSONE (DELTASONE) 20 mg tablet Take 1 tablet by mouth once daily. With food hydrOXYzine HCl (ATARAX) 25 mg tablet Take 0.5-1 tablets by mouth four times daily as needed for itching/rash. ARMOUR THYROID 60 mg tablet Take 1 tablet by mouth once daily. cyclobenzaprine (FLEXERIL) 10 mg tablet Take 1 tablet by mouth three times daily as needed for muscle spasm. CPAP Initiate CPAP @ 6 cm of water with humidification. Mask (per patient preference) optional chin strap (if indicated) , filters, tubing, humidifier and lifetime supplies. aspirin 325 mg tablet Take 1 tablet by mouth once daily. cyclobenzaprine (FLEXERIL) 10 mg tablet Take 1 tablet by mouth three times daily as needed for Muscle Spasm. ascorbic acid, vitamin C, (VITAMIN C) 500 mg tablet Take 1 tablet by mouth three times daily. PROPYLENE GLYCOL/PEG 400 (BLINK TEARS LUBRICATING) Eye Drops Use 1 Drop in both eyes four times daily. Current Facility-Administered Medications Medication Dose Route Frequency perflutren lipid microspheres 1.3 mL in NaCl (PF) 0.9% 10 mL injection (DEFINITY) INTRAVENOUS DIRECTED PRN sodium chloride 0.9 % (flush) 10 mL (BD POSIFLUSH) 10 mL INTRAVENOUS DIRECTED PRN ALLERGIES Allergen Reactions Bactrim [Sulfametho* Hives Morphine Sulfate Itching Tea Tree Oil Rash Social History Tobacco Use Smoking status: Former Packs/day: 1.00 Years: 15.00 Pack years: 15.00 Types: Cigarettes Quit date: 02/12/1987 Years since quittin.6 Smokeless tobacco: Never Vaping Use Vaping Use: Never used Substance Use Topics Alcohol use: No Drug use: No ROS: See HPI PE: BP 120/60 Pulse 76 Temp (Src) 98.5 (Left Tympanic) Resp 16 Wt 128 lb (58.1kg) LMP 10/13/2006 Gen: AANDOX3, NAD, non-toxic appearing HEENT: PERRLA, EOMs intact b/l, nares without drainage, pharynx without erythema, exudate, lesions, or drainage. Uvula midline. Neck: No LAD, no thyromegaly, no meningismus. CV: RRR, no murmur Lungs: CTA b/l, no wheezing Skin: mild redness right great toe around nailbed without signs of infection Mild papular rash on hands (more content not included)... [facility] 09-07-2022 Miscellaneous Notes Rec'd fax and this was dated 08/05/22. To medical records for scanning. My chart message to pt. Called insurance and they report if the if the insurance has denied this for a PA for the medicine. The tier exception is also denied. They are faxing this info to the providers office. Called the number provided. This was not correct. Pharmacy is [phone]. PA already completed and denied. Tier exception is being reviewed. Will rec'd response via fax. The reference number for this is [id number]. This call took over 20 minutes. Patient calling said she needs formulary exception done for the Amour thyroid. Henry Oliveira Sawyer: [id number] - PA help? Call us at Outcome Deniedtoday Request Reference Number: [id number]. ARMOUR THYRO TAB 90MG is denied for not meeting the prior authorization requirement(s). Details of this decision are in the notice attached below or have been faxed to you Henry Oliveira Sawyer: [id number] - PA help? Call us at Status Sent to [facility] [employer] Thyroid 90MG tablets Form [employer] Electronic Prior Authorization Form (2016 NCPDP) THE OFFICE CAN COMPLETE A PA. we have no pharmacy benefits on file. Will have to review via covermymeds.We do not have the ability to add meds to a formulary. Pt called in and reports office will need to call insurance phone # [phone] to get their [employer] Thyroid added to insurance formulary. Pt reports she is almost out of medication. Prior Authorization Documentation Prior authorization requested for the following medication: Medication: [employer] Thyroid Provider: Dr Arias Insurance Company Name: [facility] Medicare Insurance Company Phone number: [phone] Patient ID number: [id number] Pharmacy Name: [facility] Telephone number: [phone] documented in this encounter [facility] 08-10-2022 Note HNO ID: [id number] Author: Shin Arias, DO Service: ? Author Type: Physician Type: Progress Notes Filed: 08/10/2022 12:04 PM Note Text: CC: Henry Oliveira is a 66 year old female who presents to the office for rash HPI: Rash, present on great toes/feet, as well as present on her hands, mostly thenar eminence and thumb and index finger by description, red and irritated and blistering. Present for the last 3-4 weeks, no known exposures except for was doing some weeding in her flower bed prior to this starting. Has been trying over the counter creams without relief. Itching a lot, worse at night and sometimes causes difficulty to fall asleep due to the itching. PAST MEDICAL HISTORY Diagnosis Date Abnormal glandular Papanicolaou smear of cervix Abn. Pap smear (cervix) Asymptomatic varicose veins Depressive disorder, not elsewhere classified 09/27/2006 Hearing decreased Hyperlipidemia Hypothyroidism 2010 HERNAN on CPAP [facility] Peripheral vascular disease, unspecified (HCC) varicose veins Sleep apnea CPAP Supraspinatus tendon tear 04/03/2012 right shoulder Vitamin B12 deficiency Vitamin D deficiency 10/30/2013 PAST SURGICAL HISTORY Procedure Laterality Date COLPOSCOPY CERVIX UPPER/ADJACENT VAGINA Colposcopy CORRECT BUNION,SIMPLE 01-31-12 Bunion, left DILATION AND CURETTAGE DXAND/THER NONOBSTETRIC 1980s Dilation AND curettage LIG/TRNSXJ FLP TUBE ABDL/VAG APPR UNI/BI COMPLETE Tubal ligation PAST SURGICAL HISTORY OF 11/2003 breast biopsy right, benign PAST SURGICAL HISTORY OF 1997 wrist surgery - after fracture, right PAST SURGICAL HISTORY OF 06/28/13 arthroscopy with open rotator cuff repair Current Outpatient Medications Medication Sig omega 1-juj-cfa-fish oil (FISH OIL) 100-160-1,000 mg cap Take 1 capsule by mouth. traZODone (DESYREL) 50 mg tablet TAKE 1 TO 2 TABLETS AT BEDTIME FOR SLEEP selenium 200 mcg cap Take by mouth. zinc sulfate (ZINC-15 ORAL) Take by mouth. CPAP Initiate CPAP @ 6 cm of water with humidification. Mask (per patient preference) optional chin strap (if indicated) , filters, tubing, humidifier and lifetime supplies. vitamin B complex (B COMPLEX ORAL) Take 1 tablet by mouth once daily. L-LYSINE ORAL Take 1 capsule by mouth once daily. aspirin 325 mg tablet Take 1 tablet by mouth once daily. cyclobenzaprine (FLEXERIL) 10 mg tablet Take 1 tablet by mouth three times daily as needed for Muscle Spasm. Cholecalciferol, Vitamin D3, 5,000 unit cap Take 1 capsule by mouth once daily. ascorbic acid, vitamin C, (VITAMIN C) 500 mg tablet Take 1 tablet by mouth three times daily. PROPYLENE GLYCOL/PEG 400 (BLINK TEARS LUBRICATING) Eye Drops Use 1 Drop in both eyes four times daily. Aspirin 81 mg Tab Take 4 tablets by mouth one time only for 1 dose. triamcinolone acetonide (KENALOG) 0.5 % cream Apply 1 application to affected area three times daily. For rash/itching. Apply sparingly. Avoid face/skin fold. predniSONE (DELTASONE) 20 mg tablet Take 1 tablet by mouth once daily. With food hydrOXYzine HCl (ATARAX) 25 mg tablet Take 0.5-1 tablets by mouth four times daily as needed for itching/rash. ARMOUR THYROID 60 mg tablet Take 1 tablet by mouth once daily. dextroamphetamine-amphetamine (ADDERALL) 10 mg tablet Take 0.5-1 tablets by mouth once daily for 30 days. cyclobenzaprine (FLEXERIL) 10 mg tablet Take 1 tablet by mouth three times daily as needed for muscle spasm. Current Facility-Administered Medications Medication Dose Route Frequency perflutren lipid microspheres 1.3 mL in NaCl (PF) 0.9% 10 mL injection (DEFINITY) INTRAVENOUS DIRECTED PRN sodium chloride 0.9 % (flush) 10 mL (BD POSIFLUSH) 10 mL INTRAVENOUS DIRECTED PRN ALLERGIES Allergen Reactions Bactrim [Sulfametho* Hives Morphine Sulfate Itching Tea Tree Oil Rash Social History Tobacco Use Smoking status: Former Packs/day: 1.00 Years: 15.00 Pack years: 15.00 Types: Cigarettes Quit date: 02/12/1987 Years since quittin.5 Smokeless tobacco: Never Vaping Use Vaping Use: Never used Substance Use Topics Alcohol use: No Drug use: No ROS: See HPI PE: BP 120/80 Pulse 88 Temp (Src) 98.4 (Right Tympanic) Resp 16 Wt 128 lb (58.1kg) LMP 10/13/2006 Gen: AANDOX3, NAD, non-toxic appearing Skin: vesicular papular rash with crusting and erythematous base on thenar and 1-2nd fingers on hands as well as b/l great toes and onto proximal dorsal foot without signs of infection ASSESSMENT/PLAN: 1. Dermatitis contact - ICD9: 692.9, ICD10: L25.9 (primary diagnosis) - Oral Steriod tx -Prednisone burst - Topical steriod tx with Rx for steriod cream/ointment- see orders - Anti itch therapy of Rx for Atarax recommended prn - discussed skin care of rash - follow up if symptoms persist or worsen. - TRIAMCINOLONE ACETONIDE 0.5 % TOPICAL CREAM - PREDNISONE 20 MG TABLET - HYDROXYZINE HCL 25 MG TABLET (more content not included)... [facility] 08-10-2022 History of Present illness Narrative CC: Henry Oliveira is a 66 year old female who presents to the office for rash HPI: Rash, present on great toes/feet, as well as present on her hands, mostly thenar eminence and thumb and index finger by description, red and irritated and blistering. Present for the last 3-4 weeks, no known exposures except for was doing some weeding in her flower bed prior to this starting. Has been trying over the counter creams without relief. Itching a lot, worse at night and sometimes causes difficulty to fall asleep due to the itching. PAST MEDICAL HISTORY Diagnosis Date Abnormal glandular Papanicolaou smear of cervix Abn. Pap smear (cervix) Asymptomatic varicose veins Depressive disorder, not elsewhere classified 09/27/2006 Hearing decreased Hyperlipidemia Hypothyroidism 2010 HERNAN on CPAP [facility] Peripheral vascular disease, unspecified (HCC) varicose veins Sleep apnea CPAP Supraspinatus tendon tear 04/03/2012 right shoulder Vitamin B12 deficiency Vitamin D deficiency 10/30/2013 PAST SURGICAL HISTORY Procedure Laterality Date COLPOSCOPY CERVIX UPPER/ADJACENT VAGINA Colposcopy CORRECT BUNION,SIMPLE 01-31-12 Bunion, left DILATION & CURETTAGE DX&/THER NONOBSTETRIC 1980s Dilation & curettage LIG/TRNSXJ FLP TUBE ABDL/VAG APPR UNI/BI COMPLETE Tubal ligation PAST SURGICAL HISTORY OF 11/2003 breast biopsy right, benign PAST SURGICAL HISTORY OF 1997 wrist surgery - after fracture, right PAST SURGICAL HISTORY OF 06/28/13 arthroscopy with open rotator cuff repair Current Outpatient Medications Medication Sig omega 1-nlv-wrb-fish oil (FISH OIL) 100-160-1,000 mg cap Take 1 capsule by mouth. traZODone (DESYREL) 50 mg tablet TAKE 1 TO 2 TABLETS AT BEDTIME FOR SLEEP selenium 200 mcg cap Take by mouth. zinc sulfate (ZINC-15 ORAL) Take by mouth. CPAP Initiate CPAP @ 6 cm of water with humidification. Mask (per patient preference) optional chin strap (if indicated) , filters, tubing, humidifier and lifetime supplies. vitamin B complex (B COMPLEX ORAL) Take 1 tablet by mouth once daily. L-LYSINE ORAL Take 1 capsule by mouth once daily. aspirin 325 mg tablet Take 1 tablet by mouth once daily. cyclobenzaprine (FLEXERIL) 10 mg tablet Take 1 tablet by mouth three times daily as needed for Muscle Spasm. Cholecalciferol, Vitamin D3, 5,000 unit cap Take 1 capsule by mouth once daily. ascorbic acid, vitamin C, (VITAMIN C) 500 mg tablet Take 1 tablet by mouth three times daily. PROPYLENE GLYCOL/PEG 400 (BLINK TEARS LUBRICATING) Eye Drops Use 1 Drop in both eyes four times daily. Aspirin 81 mg Tab Take 4 tablets by mouth one time only for 1 dose. triamcinolone acetonide (KENALOG) 0.5 % cream Apply 1 application to affected area three times daily. For rash/itching. Apply sparingly. Avoid face/skin fold. predniSONE (DELTASONE) 20 mg tablet Take 1 tablet by mouth once daily. With food hydrOXYzine HCl (ATARAX) 25 mg tablet Take 0.5-1 tablets by mouth four times daily as needed for itching/rash. ARMOUR THYROID 60 mg tablet Take 1 tablet by mouth once daily. dextroamphetamine-amphetamine (ADDERALL) 10 mg tablet Take 0.5-1 tablets by mouth once daily for 30 days. cyclobenzaprine (FLEXERIL) 10 mg tablet Take 1 tablet by mouth three times daily as needed for muscle spasm. Current Facility-Administered Medications Medication Dose Route Frequency perflutren lipid microspheres 1.3 mL in NaCl (PF) 0.9% 10 mL injection (DEFINITY) INTRAVENOUS DIRECTED PRN sodium chloride 0.9 % (flush) 10 mL (BD POSIFLUSH) 10 mL INTRAVENOUS DIRECTED PRN ALLERGIES Allergen Reactions Bactrim [Sulfametho* Hives Morphine Sulfate Itching Tea Tree Oil Rash Social History Tobacco Use Smoking status: Former Packs/day: 1.00 Years: 15.00 Pack years: 15.00 Types: Cigarettes Quit date: 02/12/1987 Years since quittin.5 Smokeless tobacco: Never Vaping Use Vaping Use: Never used Substance Use Topics Alcohol use: No Drug use: No ROS: See HPI PE: BP 120/80 Pulse 88 Temp (Src) 98.4 (Right Tympanic) Resp 16 Wt 128 lb (58.1kg) LMP 10/13/2006 Gen: A&OX3, NAD, non-toxic appearing Skin: vesicular papular rash with crusting and erythematous base on thenar and 1-2nd fingers on hands as well as b/l great toes and onto proximal dorsal foot without signs of infection ASSESSMENT/PLAN: 1. Dermatitis contact - ICD9: 692.9, ICD10: L25.9 (primary diagnosis) - Oral Steriod tx -Prednisone burst - Topical steriod tx with Rx for steriod cream/ointment- see orders - Anti itch therapy of Rx for Atarax recommended prn - discussed skin care of rash - follow up if symptoms persist or worsen. - TRIAMCINOLONE ACETONIDE 0.5 % TOPICAL CREAM - PREDNISONE 20 MG TABLET - HYDROXYZINE HCL 25 MG TABLET 2. Hypothyroidism, unspecified type - ICD9: 244.9, ICD10: E03.9 - Instructed patient on importance of taking on an empty stomach either first thing in the morning or at bedtime. Stable - Behavioral intervention - ARMOUR THYROID 60 MG TABLET Shin Arias DO Return if no improvement. Follow up with Shin Arias DO. To ER if develops chest pain, shortness of breath Discussed risks, benefits, alternatives, and potential side effects of medications. Patient/Guardian expressed understanding and agreed with the plan. See patient instructions. Shin Arias DO [address] [place] [address] documented in this encounter [facility] 08-09-2022 Miscellaneous Notes Appointment made message left on . Please schedule her an appt. I have 3 openings tomorrow or can see PLAYERS ASSISTANT as well Shin Arias DO Patient calling asking for appt today with PCP she has poison ismael rash and hands and feet and is spreading. Patient refuses to go to express care, aware PLAYERS ASSISTANT are out of office today. Please advise documented in this encounter [facility] 08-05-2022 Miscellaneous Notes Pt informed, verbalized understanding Jaz Solis Hold armour thyroid 2x per week. Jossy Gustafson APRN.ARA Patient returned call and went over results, notes from Dr Arias with understanding. Patient said she has been skipping one day a week for long time with her amour thyroid. Patient asking what did you want her to do now? Left message for patient to return call Jaz Solis Please inform patient that her labs show that her cholesterol is still high but improving. Continue good diet with less intake of animal fats as well as need for regular exercise 3-4 days a week Her free t3 is slightly high and free t4 is normal and TSH is normal. Would recommend holding her armour thyroid 1 day a week Shin Arias DO documented in this encounter [facility] 07-22-2022 Miscellaneous Notes Pt. informed via My Chart. Please inform patient that her PFTs and lung volumes were normal as below IMPRESSION: Spirometry is normal. There was not a significant bronchodilator response. The TLC, RV and RV/TLC are normal. Shin Arias DO documented in this encounter [facility] 07-21-2022 Miscellaneous Notes Sent [employer] message Jaz Irma The following approved medication requests have been transmitted electronically. Requested Prescriptions Signed Prescriptions Disp Refills ARMOUR THYROID 90 mg tablet 30 tablet 0 Sig: Take 1 tablet by mouth once daily. Authorizing Provider: JOSSY GUSTAFSON APRN.ARA Pt calling office to request a 1 month supply of [employer] thyroid to be sent to [facility] in [place]. Rx pending. Please review and advise. Neri Robles LPN documented in this encounter [facility] 07-20-2022 Note HNO ID: [id number] Author: ONEYDA Narnajo Service: ? Author Type: Respiratory Therapist Type: Progress Notes Filed: 07/20/2022 9:11 AM Note Text: PULM FUNCTION SMARTBLOCK: Provider: Shin Arias DO Assisting Tech: ONEYDA Naranjo Spirometry w/BD: 1 LV - Box: 1 [facility] 07-20-2022 History of Present illness Narrative PULM FUNCTION SMARTBLOCK: Provider: Shin Arias DO Assisting Tech: ONEYDA Naranjo Spirometry w/BD: 1 LV - Box: 1 documented in this encounter [facility] 07-19-2022 Note HNO ID: [id number] Author: Shin Arias DO Service: ? Author Type: Physician Type: Progress Notes Filed: 07/19/2022 5:20 PM Note Text: CC: Henry Oliveira is a 66 year old female who presents to the office for follow up HPI: Right ankle and foot pain, was told needs to wear a Boot then x-rays then likely brace for right ankle tendinitis, seen by Supervisor Power Reactor, no surgery needed at this time. Going to have metal fillings removed from her mouth. Feels that this is affecting her health Mood, feels she is managing well with being off the Prozac medication, doesn't feel she needs anything at this time. Has good foundation with scientologist and scientologist friends as well. Hypothyroidism, taking her armour thyroid medication, cost is expensive, doesn't want to be on synthetic medication. Hair is thinning, + chronic fatigue + shortness of breath, mostly at scientologist when she is trying to sing or when trying to take a deep breath feels she is unable. No known wheezing or cough or chest pressure or pain. No fevers or chills. No sputum PAST MEDICAL HISTORY Diagnosis Date Abnormal glandular Papanicolaou smear of cervix Abn. Pap smear (cervix) Asymptomatic varicose veins Depressive disorder, not elsewhere classified 09/27/2006 Hearing decreased Hyperlipidemia Hypothyroidism 2010 HERNAN on CPAP DME [facility] Peripheral vascular disease, unspecified (HCC) varicose veins Sleep apnea CPAP Supraspinatus tendon tear 04/03/2012 right shoulder Vitamin B12 deficiency Vitamin D deficiency 10/30/2013 PAST SURGICAL HISTORY Procedure Laterality Date COLPOSCOPY CERVIX UPPER/ADJACENT VAGINA Colposcopy CORRECT BUNION,SIMPLE 01-31-12 Bunion, left DILATION AND CURETTAGE DXAND/THER NONOBSTETRIC 1980s Dilation AND curettage LIG/TRNSXJ FLP TUBE ABDL/VAG APPR UNI/BI COMPLETE Tubal ligation PAST SURGICAL HISTORY OF 11/2003 breast biopsy right, benign PAST SURGICAL HISTORY OF 1997 wrist surgery - after fracture, right PAST SURGICAL HISTORY OF 06/28/13 arthroscopy with open rotator cuff repair Current Outpatient Medications Medication Sig omega 7-afk-hqp-fish oil (FISH OIL) 100-160-1,000 mg cap Take 1 capsule by mouth. ARMOUR THYROID 90 mg tablet Take 1 tablet by mouth daily before breakfast. traZODone (DESYREL) 50 mg tablet TAKE 1 TO 2 TABLETS AT BEDTIME FOR SLEEP selenium 200 mcg cap Take by mouth. zinc sulfate (ZINC-15 ORAL) Take by mouth. cyclobenzaprine (FLEXERIL) 10 mg tablet Take 1 tablet by mouth three times daily as needed for muscle spasm. CPAP Initiate CPAP @ 6 cm of water with humidification. Mask (per patient preference) optional chin strap (if indicated) , filters, tubing, humidifier and lifetime supplies. L-LYSINE ORAL Take 1 capsule by mouth once daily. dextroamphetamine-amphetamine (ADDERALL) 10 mg tablet Take 0.5-1 tablets by mouth once daily for 30 days. vitamin B complex (B COMPLEX ORAL) Take 1 tablet by mouth once daily. aspirin 325 mg tablet Take 1 tablet by mouth once daily. (Patient not taking: Reported on 06/06/2022) Thyroid, Pork, (NATURE-THROID) 195 mg tab 1 tablet PO daily in the morning cyclobenzaprine (FLEXERIL) 10 mg tablet Take 1 tablet by mouth three times daily as needed for Muscle Spasm. (Patient not taking: Reported on 06/06/2022) triamcinolone acetonide (KENALOG) 0.1 % cream Apply 1 application to affected area twice daily as needed. Apply sparingly to area for rash/itching. Cholecalciferol, Vitamin D3, 5,000 unit cap Take 1 capsule by mouth once daily. ascorbic acid, vitamin C, (VITAMIN C) 500 mg tablet Take 1 tablet by mouth three times daily. PROPYLENE GLYCOL/PEG 400 (BLINK TEARS LUBRICATING) Eye Drops Use 1 Drop in both eyes four times daily. Aspirin 81 mg Tab Take 4 tablets by mouth one time only for 1 dose. Current Facility-Administered Medications Medication Dose Route Frequency perflutren lipid microspheres 1.3 mL in NaCl (PF) 0.9% 10 mL injection (DEFINITY) INTRAVENOUS DIRECTED PRN sodium chloride 0.9 % (flush) 10 mL (BD POSIFLUSH) 10 mL INTRAVENOUS DIRECTED PRN ALLERGIES Allergen Reactions Bactrim [Sulfametho* Hives Morphine Sulfate Itching Tea Tree Oil Rash Social History Tobacco Use Smoking status: Former Packs/day: 1.00 Years: 15.00 Pack years: 15.00 Types: Cigarettes Quit date: 02/12/1987 Years since quittin.4 Smokeless tobacco: Never Vaping Use Vaping Use: Never used Substance Use Topics Alcohol use: No Drug use: No ROS: See HPI PE: BP 138/82 Pulse 72 Temp (Src) 98.5 (Left Tympanic) Resp 16 Wt 132 lb (59.9kg) LMP 10/13/2006 Gen: AANDOX3, NAD, non-toxic appearing, cooperative, pleasant HEENT: PERRLA, wearing glasses, EOMs intact b/l, nares without drainage, pharynx without erythema, exudate, lesions, or drainage. Uvula midline. Neck: No LAD, no thyromegaly, no meningismus. CV: RRR, no murmur Lungs: CTA b/l, no wheezing No edema, norm (more content not included)... [facility] 07-19-2022 History of Present illness Narrative CC: Henry Oliveira is a 66 year old female who presents to the office for follow up HPI: Right ankle and foot pain, was told needs to wear a Boot then x-rays then likely brace for right ankle tendinitis, seen by Supervisor Power Reactor, no surgery needed at this time. Going to have metal fillings removed from her mouth. Feels that this is affecting her health Mood, feels she is managing well with being off the Prozac medication, doesn't feel she needs anything at this time. Has good foundation with scientologist and scientologist friends as well. Hypothyroidism, taking her armour thyroid medication, cost is expensive, doesn't want to be on synthetic medication. Hair is thinning, + chronic fatigue + shortness of breath, mostly at scientologist when she is trying to sing or when trying to take a deep breath feels she is unable. No known wheezing or cough or chest pressure or pain. No fevers or chills. No sputum PAST MEDICAL HISTORY Diagnosis Date Abnormal glandular Papanicolaou smear of cervix Abn. Pap smear (cervix) Asymptomatic varicose veins Depressive disorder, not elsewhere classified 09/27/2006 Hearing decreased Hyperlipidemia Hypothyroidism 2010 HERNAN on CPAP [facility] Peripheral vascular disease, unspecified (HCC) varicose veins Sleep apnea CPAP Supraspinatus tendon tear 04/03/2012 right shoulder Vitamin B12 deficiency Vitamin D deficiency 10/30/2013 PAST SURGICAL HISTORY Procedure Laterality Date COLPOSCOPY CERVIX UPPER/ADJACENT VAGINA Colposcopy CORRECT BUNION,SIMPLE -- Bunion, left DILATION & CURETTAGE DX&/THER NONOBSTETRIC [facility] Dilation & curettage LIG/TRNSXJ FLP TUBE ABDL/VAG APPR UNI/BI COMPLETE Tubal ligation PAST SURGICAL HISTORY OF 11/2003 breast biopsy right, benign PAST SURGICAL HISTORY OF 1997 wrist surgery - after fracture, right PAST SURGICAL HISTORY OF 06/28/13 arthroscopy with open rotator cuff repair Current Outpatient Medications Medication Sig omega 7-zrb-ant-fish oil (FISH OIL) 100-160-1,000 mg cap Take 1 capsule by mouth. ARMOUR THYROID 90 mg tablet Take 1 tablet by mouth daily before breakfast. traZODone (DESYREL) 50 mg tablet TAKE 1 TO 2 TABLETS AT BEDTIME FOR SLEEP selenium 200 mcg cap Take by mouth. zinc sulfate (ZINC-15 ORAL) Take by mouth. cyclobenzaprine (FLEXERIL) 10 mg tablet Take 1 tablet by mouth three times daily as needed for muscle spasm. CPAP Initiate CPAP @ 6 cm of water with humidification. Mask (per patient preference) optional chin strap (if indicated) , filters, tubing, humidifier and lifetime supplies. L-LYSINE ORAL Take 1 capsule by mouth once daily. dextroamphetamine-amphetamine (ADDERALL) 10 mg tablet Take 0.5-1 tablets by mouth once daily for 30 days. vitamin B complex (B COMPLEX ORAL) Take 1 tablet by mouth once daily. aspirin 325 mg tablet Take 1 tablet by mouth once daily. (Patient not taking: Reported on 06/06/2022) Thyroid, Pork, (NATURE-THROID) 195 mg tab 1 tablet PO daily in the morning cyclobenzaprine (FLEXERIL) 10 mg tablet Take 1 tablet by mouth three times daily as needed for Muscle Spasm. (Patient not taking: Reported on 06/06/2022) triamcinolone acetonide (KENALOG) 0.1 % cream Apply 1 application to affected area twice daily as needed. Apply sparingly to area for rash/itching. Cholecalciferol, Vitamin D3, 5,000 unit cap Take 1 capsule by mouth once daily. ascorbic acid, vitamin C, (VITAMIN C) 500 mg tablet Take 1 tablet by mouth three times daily. PROPYLENE GLYCOL/PEG 400 (BLINK TEARS LUBRICATING) Eye Drops Use 1 Drop in both eyes four times daily. Aspirin 81 mg Tab Take 4 tablets by mouth one time only for 1 dose. Current Facility-Administered Medications Medication Dose Route Frequency perflutren lipid microspheres 1.3 mL in NaCl (PF) 0.9% 10 mL injection (DEFINITY) INTRAVENOUS DIRECTED PRN sodium chloride 0.9 % (flush) 10 mL (BD POSIFLUSH) 10 mL INTRAVENOUS DIRECTED PRN ALLERGIES Allergen Reactions Bactrim [Sulfametho* Hives Morphine Sulfate Itching Tea Tree Oil Rash Social History Tobacco Use Smoking status: Former Packs/day: 1.00 Years: 15.00 Pack years: 15.00 Types: Cigarettes Quit date: 02/12/1987 Years since quittin.4 Smokeless tobacco: Never Vaping Use Vaping Use: Never used Substance Use Topics Alcohol use: No Drug use: No ROS: See HPI PE: BP 138/82 Pulse 72 Temp (Src) 98.5 (Left Tympanic) Resp 16 Wt 132 lb (59.9kg) LMP 10/13/2006 Gen: A&OX3, NAD, non-toxic appearing, cooperative, pleasant HEENT: PERRLA, wearing glasses, EOMs intact b/l, nares without drainage, pharynx without erythema, exudate, lesions, or drainage. Uvula midline. Neck: No LAD, no thyromegaly, no meningismus. CV: RRR, no murmur Lungs: CTA b/l, no wheezing No edema, normal pulses Skin: No rashes, lesions, or wounds on exposed skin. ASSESSMENT/PLAN: 1. Dyslipidemia - ICD9: 272.4, ICD10: E78.5 (primary diagnosis) - suboptimal control - Encouraged following a low fat, low cholesterol diet. - Discussed the benefits of regular aerobic exercise and weight loss. - Check fasting lipid panel - LIPID PANEL BASIC 2. Hair thinning - ICD9: 704.00, ICD10: L65.9 Recheck labs, worsening symptoms - MAGNESIUM BLD - VITAMIN C - VITAMIN D 25 HYDROXY - VITAMIN B12 BLOOD 3. Fatigue, unspecified type - ICD9: 780.79, ICD10: R53.83 Recheck labs, chronic, consistent symptoms - MAGNESIUM BLD - VITAMIN C - VITAMIN D 25 HYDROXY - VITAMIN B12 BLOOD 4. Tendinitis of right ankle - ICD9: 727.06, ICD10: M77.51 - f/u with Supervisor [employer] 5. SOB (shortness of breath) - ICD9: 786.05, ICD10: R06.02 Chronic, worsening, no chest pressure or pain, no tobacco exposure or known COPD or Asthma - COMP METABOLIC PANEL - IRON + TIBC - FERRITIN BLD - CBC + DIFF - SPIROMETRY - BASELINE AND POST DILATOR - LUNG VOLUMES - XR CHEST 2V FRONTAL/LAT 6. Hypothyroidism, unspecified type - ICD9: 244.9, ICD10: E03.9 - Instructed patient on importance of taking on an empty stomach either first thing in the morning or at bedtime. Stable - Behavioral intervention, - Pharmacological intervention, and - Continue current medications - T4 FREE/FREE THYROX - T3 FREE BLD - TSH BLD 7. Screening for colon cancer - ICD9: V76.51, ICD10: Z12.11 - FECAL OCCULT BLOOD TEST 8. Concentration deficit - ICD9: 799.51, ICD10: R41.840 Continue prn use of stimulant, stable 9. Anxiety with depression - ICD9: 300.4, ICD10: F41.8 Stable off of medications at this time Shin Arias DO Return if no improvement. Follow up with Shin Arias DO. To ER if develops chest pain, shortness of breath Discussed risks, benefits, alternatives, and potential side effects of medications. Patient/Guardian expressed understanding and agreed with the plan. See patient instructions. Shin Arias DO [address] [place] [address] documented in this encounter [facility] 06-21-2022 Miscellaneous Notes Pt informed, verbalized understanding Jaz Solis Yes, please inform patient that [facility] Shin Arias DO Patient reports Baljinder is out of adderall 10 mg. Reports she has 4 pills left. Asking if provider would send Rx to [facility]? Pended. documented in this encounter [facility] 06-20-2022 Miscellaneous Notes PDMP website checked and validated. All prescriptions have been APPROPRIATELY filled. No suspicious activity was identified. 06/20/2022 by Jossy Gustafson APRN.[facility] The following approved medication requests have been transmitted electronically. Requested Prescriptions Signed Prescriptions Disp Refills dextroamphetamine-amphetamine (ADDERALL) 10 mg tablet 30 tablet 0 Sig: Take 0.5-1 tablets by mouth once daily for 30 days. Authorizing Provider: JOSSY GUSTAFSON APRN.CNP [facility] 06/06/22 NOV 07/19/22 Patient has been identified by name and date of : Yes Requested Prescriptions Pending Prescriptions Disp Refills dextroamphetamine-amphetamine (ADDERALL) 10 mg tablet 30 tablet 0 Sig: Take 0.5-1 tablets by mouth once daily for 30 days. RX INSTRUCTIONS: Patient aware RX will be sent to pharmacy. No need to notify patient. Angela Buchanan Pss documented in this encounter [facility] 06-09-2022 Miscellaneous Notes Status on below was pt scheduled? Rosamaria Montaño LPN Telephone on 05/11/22 STRESS ECHO TREADMILL .please schedule Thanks, Bonifacio Leyva PA-C Will send to Bonifacio to review since she saw her last week Shin Arias DO Pt is calling and due to everything going on she would like to have a stress test done. Her family is asking her to do this also. Please review and advise pt. Pt wa sseen by Bonifacio Leyva yesterday 05-10-22, please review his notes. Pt reports she is going to come in and get labs done Bonifacio has asked her to do. Aware US to be done. Please advise pt. Rosamaria Montaño LPN documented in this encounter [facility] 06-08-2022 Miscellaneous Notes Patient called and notified of results and providers instructions. Patient verbalizes understanding. Genie Calles RN X-ray showed swelling but no abnormalities to bone or alignment. This could be ankle sprain from unknown cause or related to bunions. I would continue RICE therapy as discussed in office,rotate between motrin or tylenol as needed and if no improvement within 2 weeks -- get opinion of desk operator. Thank you, Jossy Gustafson APRN.BANK OPERATIONS OFFICER Patient calls to request results of right ankle x-ray. Reviewed x-ray results and OV note from 06/06/2022. Patient asking if any further instructions from provider. Patient aware provider out of office today and will return tomorrow. Please review and advise, Genie Calles RN documented in this encounter [facility] 06-06-2022 Instructions Cydney Mahmood LPN - 06/06/2022 10:16 AM EST BONE MINERAL DENSITY PATIENT INSTRUCTIONS ======== Bone mineral density testing measures the amount of calcium in certain parts of your bones. This information determines how strong your bones are. The test is used to detect osteoporosis, a disease in which the bone's mineral content and density are low, increasing a person's risk of fractures. The lumbar spine (lower back) and the hip are the skeletal sites usually examined. For the test, remember that: 1. You cannot take this test if you are . 2. Eat a normal diet on the day of the test. 3. Take your medications as you normally would. 4. DO NOT take calcium supplements (such as Tums) for 24 hours before the test. 5. On the day of the test, leave valuables (jewelry or credit cards) at home. 6. The test should be performed prior to oral, rectal or IV contrast studies, or at least 7 days after any of these studies. For the test, you may be asked to wear a hospital gown. You will lie on your back, on a padded table, in a comfortable position. Generally, you can resume your usual activities immediately. documented in this encounter [facility] 06-06-2022 History of Present illness Narrative Chief Complaint Patient presents with: rt ankle swelling: Been bothersome for a while now worse swelling and bothersome HPI Henry Oliveira is a 66 year old female who presents here today for Above Complaints.. Henry is an established patient of Dr. Hugo DO. Tawana is a new patient to me today. Concerns today... Ankle pain --- No fall or injury. R ankle pain x a few months. Worsening over the last week or so. Started as pain only when first waking up or when standing up. Pain has worsened to all of the time. Swelling started this week to inside park of ankle. Has not taken any analgesic for discomfort. Reports pain is minimal. Using Aspercreme with some relief. Able to walk on this ankle. Reports hx of severe bunions to bilateral feet. Had surgery on L foot bunion due to causing similar problems a few years ago that did not go well. Did not improve. Pt hesitant and worried about going back to desk operator for repeat surgery on other foot. Past medical history, appointments, medications, allergies reviewed. Previous Medical History PAST MEDICAL HISTORY Diagnosis Date Abnormal glandular Papanicolaou smear of cervix Abn. Pap smear (cervix) Asymptomatic varicose veins Depressive disorder, not elsewhere classified 09/27/2006 Hearing decreased Hyperlipidemia Hypothyroidism 2010 HERNAN on CPAP [facility] Peripheral vascular disease, unspecified (HCC) varicose veins Sleep apnea CPAP Supraspinatus tendon tear 04/03/2012 right shoulder Vitamin B12 deficiency Vitamin D deficiency 10/30/2013 Previous Surgical History PAST SURGICAL HISTORY Procedure Laterality Date COLPOSCOPY CERVIX UPPER/ADJACENT VAGINA Colposcopy CORRECT BUNION,SIMPLE 01-31-12 Bunion, left DILATION & CURETTAGE DX&/THER NONOBSTETRIC 1980s Dilation & curettage LIG/TRNSXJ FLP TUBE ABDL/VAG APPR UNI/BI COMPLETE Tubal ligation PAST SURGICAL HISTORY OF 11/2003 breast biopsy right, benign PAST SURGICAL HISTORY OF 1997 wrist surgery - after fracture, right PAST SURGICAL HISTORY OF 06/28/13 arthroscopy with open rotator cuff repair Family History FAMILY HISTORY Problem Relation Age of Onset Cancer Father LUNG Hypertension Mother Cataract Mother Heart Maternal Grandfather Cancer Maternal Aunt BLADDER Cancer Maternal Uncle KIDNEY Diabetes Maternal Uncle Diabetes Maternal Aunt other (HODGKINS) Sister Lung Cancer Breast Cancer Maternal Aunt Hyperlipidemia Son Hypertension Son Patient Allergies ALLERGIES Allergen Reactions Bactrim [Sulfametho* Hives Morphine Sulfate Itching Tea Tree Oil Rash Current Medications Current Outpatient Medications on File Prior to Visit Medication Sig ARMOUR THYROID 90 mg tablet Take 1 tablet by mouth daily before breakfast. dextroamphetamine-amphetamine (ADDERALL) 10 mg tablet Take 0.5-1 tablets by mouth once daily for 30 days. traZODone (DESYREL) 50 mg tablet TAKE 1 TO 2 TABLETS AT BEDTIME FOR SLEEP selenium 200 mcg cap Take by mouth. zinc sulfate (ZINC-15 ORAL) Take by mouth. cyclobenzaprine (FLEXERIL) 10 mg tablet Take 1 tablet by mouth three times daily as needed for muscle spasm. CPAP Initiate CPAP @ 6 cm of water with humidification. Mask (per patient preference) optional chin strap (if indicated) , filters, tubing, humidifier and lifetime supplies. vitamin B complex (B COMPLEX ORAL) Take 1 tablet by mouth once daily. L-LYSINE ORAL Take 1 capsule by mouth once daily. aspirin 325 mg tablet Take 1 tablet by mouth once daily. Thyroid, Pork, (NATURE-THROID) 195 mg tab 1 tablet PO daily in the morning cyclobenzaprine (FLEXERIL) 10 mg tablet Take 1 tablet by mouth three times daily as needed for Muscle Spasm. triamcinolone acetonide (KENALOG) 0.1 % cream Apply 1 application to affected area twice daily as needed. Apply sparingly to area for rash/itching. Cholecalciferol, Vitamin D3, 5,000 unit cap Take 1 capsule by mouth once daily. ascorbic acid, vitamin C, (VITAMIN C) 500 mg tablet Take 1 tablet by mouth three times daily. PROPYLENE GLYCOL/PEG 400 (BLINK TEARS LUBRICATING) Eye Drops Use 1 Drop in both eyes four times daily. Aspirin 81 mg Tab Take 4 tablets by mouth one time only for 1 dose. Current Facility-Administered Medications on File Prior to Visit Medication perflutren lipid microspheres 1.3 mL in NaCl (PF) 0.9% 10 mL injection (DEFINITY) sodium chloride 0.9 % (flush) 10 mL (BD POSIFLUSH) Social History Social History Tobacco Use Smoking status: Former Packs/day: 1.00 Years: 15.00 Pack years: 15.00 Types: Cigarettes Quit date: 02/12/1987 Years since quittin.3 Smokeless tobacco: Never Vaping Use Vaping Use: Never used Substance Use Topics Alcohol use: No Drug use: No REVIEW OF SYSTEMS: as above Reviewed relevant PMHx, PSHx, Social Hx, current medications and allergies. Review of Symptoms REVIEW OF SYSTEMS See HPI. All other systems are negative. EXAM: BP 120/60 (BP Site: Left Arm, BP Position: Sitting, BP Cuff Size: Regular Adult) Pulse 62 Resp 14 Wt 59.3 kg (130 lb 12.8 oz) LMP 10/13/2006 BMI 23.54 kg/m General Appearance: Well appearing, alert, in no acute distress, well-hydrated, well nourished.. Skin: Skin color, texture, turgor normal, no suspicious rashes or lesions. Head: Normocephalic, no masses, lesions, tenderness or abnormalities. Extremities: Normal except for joint location: on right ankle pain and swelling. Possible slight effusion. Full ROM with discomfort. Bunion to R proximal phalanx of great toe. Musculoskeletal: Range of motion normal in hips, knees, shoulders, and spine. Peripheral Pulses: Normal. Neurologic: Gait normal. Reflexes normal and symmetric. Sensation grossly intact.. Health Maintenance List SHINGRIX VACCINE(1 of 2) Never done MAMMOGRAM due on 11/21/2019 DTAP,TDAP,TD(2 - Td or Tdap) due on 08/03/2020 BONE DENSITY Never done PNEUMOCOCCAL: 65+(1 - PCV) Never done COLORECTAL CANCER SCREENING due on 04/07/2021 ADVANCE DIRECTIVE DISCUSSION Never done INFLUENZA(1) due on 11/11/2022 COVID-19 VACCINE(1) due on 01/21/2023 ANNUAL PCP TEAM CHRONIC DISEASE VISIT due on 05/19/2023 DIABETES SCREEN due on 04/19/2025 LIPID SCREEN due on 04/19/2027 HEPATITIS C SCREENING Completed ASSESSMENT/PLAN: 1. Right ankle swelling - ICD9: 719.07, ICD10: M25.471 (primary diagnosis) X-ray ankle. OTC tylenol or ibuprofen as needed for discomfort. RICE therapy -- rest, ice, compress, and elevate extremity. If no improvement within 1-2 weeks, may need to see desk operator about bunion correction. Pt agrees. Has recommendation of which desk operator she would like to go to if needed. - XR ANKLE GENERAL 3V AP/LAT/OBL RIGHT 2. Encounter for screening for osteoporosis - ICD9: V82.81, ICD10: Z13.820 - DXA-AXIAL SKELETON 3. Encounter for screening mammogram for malignant neoplasm of breast - ICD9: V76.12, ICD10: Z12.31 - MANDO SCREENING RTO if symptoms do not improve. Prescription instructions reviewed with patient as applicable. Potential red flag symptoms discussed with the patient. Reviewed appropriate action plan to take if red flag symptoms occur. Patient agreeable to treatment plan. Jossy Chahal APRN.BANK OPERATIONS OFFICER [address] [place] [address] documented in this encounter [facility] 05-19-2022 History of Present illness Narrative 66 year old female with c/o not feeling well since last visit. Low grade temp, nauseous and weak. 3 days ago 101.3F Was blowing out green mucus previously which stopped. Nausea without vomiting. No diarrhea. Normal BMs. Appetite so-so, a little better. Lost 3lbs from last. Had one day with generalized achiness. See note from Dr. Arias- patient asking for stress test. HISTORIES FAMILY HISTORY Problem Relation Age of Onset Cancer Father LUNG Hypertension Mother Cataract Mother Heart Maternal Grandfather Cancer Maternal Aunt BLADDER Cancer Maternal Uncle KIDNEY Diabetes Maternal Uncle Diabetes Maternal Aunt other (HODGKINS) Sister Lung Cancer Breast Cancer Maternal Aunt Hyperlipidemia Son Hypertension Son PAST MEDICAL HISTORY Diagnosis Date Abnormal glandular Papanicolaou smear of cervix Abn. Pap smear (cervix) Asymptomatic varicose veins Depressive disorder, not elsewhere classified 09/27/2006 Hearing decreased Hyperlipidemia Hypothyroidism 2010 HERNAN on CPAP [facility] Peripheral vascular disease, unspecified (HCC) varicose veins Sleep apnea CPAP Supraspinatus tendon tear 04/03/2012 right shoulder Vitamin B12 deficiency Vitamin D deficiency 10/30/2013 PAST SURGICAL HISTORY Procedure Laterality Date COLPOSCOPY CERVIX UPPER/ADJACENT VAGINA Colposcopy CORRECT BUNION,SIMPLE 01-31-12 Bunion, left DILATION & CURETTAGE DX&/THER NONOBSTETRIC 1980s Dilation & curettage LIG/TRNSXJ FLP TUBE ABDL/VAG APPR UNI/BI COMPLETE Tubal ligation PAST SURGICAL HISTORY OF 11/2003 breast biopsy right, benign PAST SURGICAL HISTORY OF 1997 wrist surgery - after fracture, right PAST SURGICAL HISTORY OF 06/28/13 arthroscopy with open rotator cuff repair Social History Tobacco Use Smoking status: Former Packs/day: 1.00 Years: 15.00 Pack years: 15.00 Types: Cigarettes Quit date: 02/12/1987 Years since quittin.2 Smokeless tobacco: Never Vaping Use Vaping Use: Never used Substance Use Topics Alcohol use: No Drug use: No ACTIVE PROBLEM LIST Asymptomatic Varicose Veins Dyslipidemia Chronic Low Back Pain Degenerative Joint Disease Metatarsalgia Metatarsus Primus Varus Other Hammer Toe (Acquired) Hallux Valgus (Acquired) Insomnia Anxiety Depression Vitamin D Deficiency Hernan (Obstructive Sleep Apnea) Excessive Daytime Sleepiness Hypothyroidism Atypical Nevus of Shoulder Atypical Nevus of Back Vitreous Floaters of Both Eyes Dry Eye Syndrome Encounter for Screening Mammogram for Malignant Neoplasm of Breast Acute Bilateral Low Back Pain With Right-Sided Sciatica Somatic Dysfunction of Pelvic Region Somatic Dysfunction of Lumbar Region Acute Back Pain With Sciatica Situational Stress Fatigue Concentration 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 Ddd (Degenerative Disc Disease), Lumbar Hypothyroidism, Acquired Well Adult Exam Vertebral Artery Stenosis, 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 90 tablet 3 dextroamphetamine-amphetamine (ADDERALL) 10 mg tablet Take 0.5-1 tablets by mouth once daily for 30 days. 30 tablet 0 traZODone (DESYREL) 50 mg tablet TAKE 1 TO 2 TABLETS AT BEDTIME FOR SLEEP 90 tablet 0 selenium 200 mcg cap Take by mouth. zinc sulfate (ZINC-15 ORAL) Take by mouth. cyclobenzaprine (FLEXERIL) 10 mg tablet Take 1 tablet by mouth three times daily as needed for muscle spasm. 30 tablet 0 CPAP Initiate CPAP @ 6 cm of water with humidification. Mask (per patient preference) optional chin strap (if indicated) , filters, tubing, humidifier and lifetime supplies. 1 Device 0 vitamin B complex (B COMPLEX ORAL) Take 1 tablet by mouth once daily. L-LYSINE ORAL Take 1 capsule by mouth once daily. aspirin 325 mg tablet Take 1 tablet by mouth once daily. Thyroid, Pork, (NATURE-THROID) 195 mg tab 1 tablet PO daily in the morning 30 tablet 11 cyclobenzaprine (FLEXERIL) 10 mg tablet Take 1 tablet by mouth three times daily as needed for Muscle Spasm. 30 tablet 0 triamcinolone acetonide (KENALOG) 0.1 % cream Apply 1 application to affected area twice daily as needed. Apply sparingly to area for rash/itching. 30 g 1 Cholecalciferol, Vitamin D3, 5,000 unit cap Take 1 capsule by mouth once daily. 90 capsule 3 ascorbic acid, vitamin C, (VITAMIN C) 500 mg tablet Take 1 tablet by mouth three times daily. 270 tablet 3 PROPYLENE GLYCOL/PEG 400 (BLINK TEARS LUBRICATING) Eye Drops Use 1 Drop in both eyes four times daily. Aspirin 81 mg Tab Take 4 tablets by mouth one time only for 1 dose. 4 tablet 0 Current Facility-Administered Medications Medication Dose Route Frequency Provider Last Rate Last Admin perflutren lipid microspheres 1.3 mL in NaCl (PF) 0.9% 10 mL injection (DEFINITY) INTRAVENOUS DIRECTED PRN Alivia Leyva PA-C sodium chloride 0.9 % (flush) 10 mL (BD POSIFLUSH) 10 mL INTRAVENOUS DIRECTED PRN Alivia Leyva PA-C SHINGRIX VACCINE(1 of 2) Never done MAMMOGRAM due on 11/21/2019 DTAP,TDAP,TD(2 - Td or Tdap) due on 08/03/2020 BONE DENSITY Never done PNEUMOCOCCAL: 65+(1 - PCV) Never done COLORECTAL CANCER SCREENING due on 04/07/2021 ADVANCE DIRECTIVE DISCUSSION Never done EXAM: BP 128/70 Pulse 70 Temp 37.2 C (98.9 F) (Tympanic) Resp 14 Wt 59.4 kg (131 lb) LMP 10/13/2006 SpO2 99% BMI 23.58 kg/m Pleasant well appearing but slightly fatigued adult woman in no acute distress. Alert and oriented all spheres. Normal affect and cognition. Speech normal. No deficits to learning or comprehension. Skin warm, dry, pink to lips and nailbeds. Normal turgor. Respirations regular and unlabored. HEENT: NCAT. No scleral icterus or conjunctival injection. TM's clear. Nose and oropharynx free from injection or lesion. Oral membranes moist and pink. No cervical lymph nodes. Thyroid non-tender, no masses, or enlargement. Carotids pulses 2+/4+ without bruits. No JVD with HOB at 30 degrees. Chest is normal shape. Lungs are clear to all allen with good air exchange through out. HRRR without murmur or gallop. No lifts, heaves, or rubs. Abdomen: active bowel sounds throughout, soft, nontender, no masses or organomegaly. No CVAT. Extrem: no clubbing or cyanosis. Edema: none. Extremities are warm and pink with prompt capillary refill. ASSESSMENT/PLAN: 1. Flu-like symptoms - ICD9: 780.99, ICD10: R68.89 (primary diagnosis) Suspect viral illness - COVID WITH FLUA+B, ROUTINE - CBC + DIFF - HEPATIC FUNCTION PNL 2. Elevated alkaline phosphatase level - ICD9: 790.5, ICD10: R74.8 - CBC + DIFF - HEPATIC FUNCTION PNL Alivia Leyva PA-C documented in this encounter [facility] 05-17-2022 Miscellaneous Notes Patient has been identified by name and date of : Yes (by Jazlyn Clifford RN 05/17/22) Patient phones for refill(s): Requested Prescriptions Pending Prescriptions Disp Refills ARMOUR THYROID 90 mg tablet 90 tablet 3 Sig: Take 1 tablet by mouth daily before breakfast. Date of last office visit in primary care: 05/10/22 Last 2 Encounter Wt Readings: Date: Wt: 05/10/2022 60.8 kg (134 lb) 04/19/2022 61.2 kg (135 lb) Previous labs/tests for medication: Thyroid: TSH Date Value 04/19/2022 0.715 mIU/L 06/30/2021 0.822 uU/mL Please advise. Thank you. Jazlyn Marquez RN documented in this encounter [facility] 05-11-2022 Miscellaneous Notes PDMP website checked and validated. All prescriptions have been APPROPRIATELY filled. No suspicious activity was identified. 05/11/2022 by Jossy Chahal APRN.BANK OPERATIONS OFFICER The following approved medication requests have been transmitted electronically. Requested Prescriptions Signed Prescriptions Disp Refills dextroamphetamine-amphetamine (ADDERALL) 10 mg tablet 30 tablet 0 Sig: Take 0.5-1 tablets by mouth once daily for 30 days. Authorizing Provider: JOSSY CHAHAL APRN.CNP Patient has been identified by name and date of : Yes Requested Prescriptions Pending Prescriptions Disp Refills dextroamphetamine-amphetamine (ADDERALL) 10 mg tablet 30 tablet 0 Sig: Take 0.5-1 tablets by mouth once daily for 30 days. NOHEMI-04/19/22 Labs-04/19/22 NOV-07/19/22 med filled 03/16/22 RX INSTRUCTIONS: Patient aware RX will be sent to pharmacy. No need to notify patient. Lupe Garcia Pss documented in this encounter [facility] 05-11-2022 Miscellaneous Notes Spoke with pt and information listed below given. Pt verbalizes understanding. Rosamaria Montaño LPN Called and left a voicemail for the Patient to call back and ask for a nurse to receive the providers message. Laury Pierre RN Please inform patient that her labs show that her alkaline phosphatase is slightly high, with further lab analysis this is coming from the liver. I would like her to have a RUQ US to check liver. I am suspicious of potential fatty liver causing this due to her elevated cholesterol levels. Shin Arias DO documented in this encounter [facility] 05-10-2022 History of Present illness Narrative 66 year old female with hx anxiety, depression, ADD, hypothyroidism, HERNAN, stroke r/t right cerebellar artery, VA stenosis with c/o episode hot, weak, sick to stomach . [place]acios like when she had her stroke. 9:30a Giving an infirm friend a bath: she was standing, Tawana was bent over washing under belly and suddenly felt sick to stomach, weak, drove home. Episode came up from toes, hot all over, nausea, weak, not syncopal but somewhat lightheaded. No focal symptoms. [place]ios somewhat like sx when she had her stroke. Lasted about an hour but within a few minutes was rapidly improving. Slight headache twice today which didn't last very long, both which went away. Just had two cataract surgery. Daughter who is a PA-C was concerned for heart issues. We discussed the appropriate actions if concerned about stroke or heart attack and that we cannot safely rule them out in the office, and less so at this hour. She was directed to go to ED but says she really doesn't think it was a stoke but came because daughter urged her to be checked. Asking to be examined here at her own risk. Currently she feels better not 100 percent but near. She denies specifically chest, neck, jaw, shoulder, or upper back pain. She denies focal weakness, loss of speech or swallowing difficulty, change in vision, change in balance. No nausea, vomiting, heartburn, change in bowels. Notes skin has been tender. Has been coughing over last week. Feels maybe getting cold/flu bug Hx cerebellar stroke 12/14/2018 echo: LV size + LVSF WNL, EF 60%. Normal wall motion. RV size and RVSF WNL. RVSP 27mmHg Atria size WNL, negative bubble study MVI trace-1+, TV1 1-2+, Normal great vessels 10/03/2018 CT brain WO: microvascular changes MRI 4 x 1.7 cm area inferior right cerebellar consistent with stroke MRA neck: occlusion right VA, normal carotid flow. 09/29/2018 admit [facility] Right inferior cerebellar infarct (09/29/18): Presenting with acute onset of headache and nausea with no prior trauma. Does state her PCP 'cracked her neck' ~4 weeks before symptom onset. No prior history of stroke. No ASA/statin prior to admission as well. CT head: Subacute R inferior cerebellar infarct. CTA brain/neck: R vert occlusion with reconstitution at V4. Severe stenosis of L vert with multifocal irregularity and narrowing up to 50%. OSH MRI: R cerebellar infarct without hemorrhage. LDL: 123, continue Lipitor 40mg daily. A1C: 5.2. TTE: Normal EF, no shunt or thrombus. 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 Continue ASA 325mg daily. Instructed patient to avoid heavy lifting (including grandchild) for 3-6 months after stroke given likely dissection HISTORIES FAMILY HISTORY Problem Relation Age of Onset Cancer Father LUNG Hypertension Mother Cataract Mother Heart Maternal Grandfather Cancer Maternal Aunt BLADDER Cancer Maternal Uncle KIDNEY Diabetes Maternal Uncle Diabetes Maternal Aunt other (HODGKINS) Sister Lung Cancer Breast Cancer Maternal Aunt Hyperlipidemia Son Hypertension Son PAST MEDICAL HISTORY Diagnosis Date Abnormal glandular Papanicolaou smear of cervix Abn. Pap smear (cervix) Asymptomatic varicose veins Depressive disorder, not elsewhere classified 09/27/2006 Hearing decreased Hyperlipidemia Hypothyroidism 2010 HERNAN on CPAP [facility] Peripheral vascular disease, unspecified (HCC) varicose veins Sleep apnea CPAP Supraspinatus tendon tear 04/03/2012 right shoulder Vitamin B12 deficiency Vitamin D deficiency 10/30/2013 PAST SURGICAL HISTORY Procedure Laterality Date COLPOSCOPY CERVIX UPPER/ADJACENT VAGINA Colposcopy CORRECT BUNION,SIMPLE 01-31-12 Bunion, left DILATION & CURETTAGE DX&/THER NONOBSTETRIC 1980s Dilation & curettage LIG/TRNSXJ FLP TUBE ABDL/VAG APPR UNI/BI COMPLETE Tubal ligation PAST SURGICAL HISTORY OF 11/2003 breast biopsy right, benign PAST SURGICAL HISTORY OF 1997 wrist surgery - after fracture, right PAST SURGICAL HISTORY OF 06/28/13 arthroscopy with open rotator cuff repair Social History Tobacco Use Smoking status: Former Packs/day: 1.00 Years: 15.00 Pack years: 15.00 Types: Cigarettes Quit date: 02/12/1987 Years since quittin.2 Smokeless tobacco: Never Vaping Use Vaping Use: Never used Substance Use Topics Alcohol use: No Drug use: No ACTIVE PROBLEM LIST Asymptomatic Varicose Veins Dyslipidemia Chronic Low Back Pain Degenerative Joint Disease Metatarsalgia Metatarsus Primus Varus Other Hammer Toe (Acquired) Hallux Valgus (Acquired) Insomnia Anxiety Depression Vitamin D Deficiency Hernan (Obstructive Sleep Apnea) Excessive Daytime Sleepiness Hypothyroidism Atypical Nevus of Shoulder Atypical Nevus of Back Vitreous Floaters of Both Eyes Dry Eye Syndrome Encounter for Screening Mammogram for Malignant Neoplasm of Breast Acute Bilateral Low Back Pain With Right-Sided Sciatica Somatic Dysfunction of Pelvic Region Somatic Dysfunction of Lumbar Region Acute Back Pain With Sciatica Situational Stress Fatigue Concentration 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 Ddd (Degenerative Disc Disease), Lumbar Hypothyroidism, Acquired Well Adult Exam Vertebral Artery Stenosis, 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 90 tablet 3 selenium 200 mcg cap Take by mouth. zinc sulfate (ZINC-15 ORAL) Take by mouth. cyclobenzaprine (FLEXERIL) 10 mg tablet Take 1 tablet by mouth three times daily as needed for muscle spasm. 30 tablet 0 CPAP Initiate CPAP @ 6 cm of water with humidification. Mask (per patient preference) optional chin strap (if indicated) , filters, tubing, humidifier and lifetime supplies. 1 Device 0 vitamin B complex (B COMPLEX ORAL) Take 1 tablet by mouth once daily. L-LYSINE ORAL Take 1 capsule by mouth once daily. Thyroid, Pork, (NATURE-THROID) 195 mg tab 1 tablet PO daily in the morning 30 tablet 11 cyclobenzaprine (FLEXERIL) 10 mg tablet Take 1 tablet by mouth three times daily as needed for Muscle Spasm. 30 tablet 0 triamcinolone acetonide (KENALOG) 0.1 % cream Apply 1 application to affected area twice daily as needed. Apply sparingly to area for rash/itching. 30 g 1 ascorbic acid, vitamin C, (VITAMIN C) 500 mg tablet Take 1 tablet by mouth three times daily. 270 tablet 3 PROPYLENE GLYCOL/PEG 400 (BLINK TEARS LUBRICATING) Eye Drops Use 1 Drop in both eyes four times daily. dextroamphetamine-amphetamine (ADDERALL) 10 mg tablet Take 0.5-1 tablets by mouth once daily for 30 days. 30 tablet 0 aspirin 325 mg tablet Take 1 tablet by mouth once daily. Cholecalciferol, Vitamin D3, 5,000 unit cap Take 1 capsule by mouth once daily. 90 capsule 3 Aspirin 81 mg Tab Take 4 tablets by mouth one time only for 1 dose. 4 tablet 0 No current facility-administered medications for this visit. SHINGRIX VACCINE(1 of 2) Never done MAMMOGRAM due on 11/21/2019 DTAP,TDAP,TD(2 - Td or Tdap) due on 08/03/2020 BONE DENSITY Never done PNEUMOCOCCAL: 65+(1 - PCV) Never done COLORECTAL CANCER SCREENING due on 04/07/2021 ADVANCE DIRECTIVE DISCUSSION Never done Lab review: Component Latest Ref Rng & Units 10/26/2021 01/28/2022 04/19/2022 TSH 0.270 - 4.200 mIU/L 0.222 (L) 0.672 0.715 Free T4 0.9 - 1.7 ng/dL 1.2 1.2 1.4 Free T3 2.3 - 4.1 pg/mL 6.7 (H) 5.9 (H) 4.8 (H) Component Latest Ref Rng & Units 01/28/2022 04/19/2022 Cholesterol, Total <200 mg/dL 235 (H) 238 (H) Triglyceride <150 mg/dL 46 42 HDL Cholesterol >39 mg/dL 83 84 Non HDL Cholesterol <130 mg/dL 152 (H) 154 (H) Fasting Time hrs 12 12 VLDL Cholesterol <30 mg/dL 9 8 TC:HDL Ratio <5.10 2.83 2.83 LDL Cholesterol <100 mg/dL 143 (H) 146 (H) LDL:HDL Ratio <2.54 1.72 1.74 Component Latest Ref Rng & Units 01/28/2022 04/19/2022 Protein, Total 6.3 - 8.0 g/dL 6.5 7.3 Albumin 3.9 - 4.9 g/dL 4.4 4.7 Calcium 8.5 - 10.2 mg/dL 9.6 9.8 Bilirubin, Total 0.2 - 1.3 mg/dL 0.4 0.5 Alkaline Phosphatase 34 - 123 U/L 126 (H) 128 (H) AST 13 - 35 U/L 22 21 ALT 7 - 38 U/L 20 17 Glucose 74 - 99 mg/dL 91 89 BUN 7 - 21 mg/dL 12 13 Creatinine 0.58 - 0.96 mg/dL 0.64 0.66 Sodium 136 - 144 mmol/L 141 140 Potassium 3.7 - 5.1 mmol/L 4.6 4.3 Chloride 97 - 105 mmol/L 104 103 CO2 22 - 30 mmol/L 28 27 Anion Gap 9 - 18 mmol/L 9 10 eGFR >=60 mL/min/1.73m 98 97 Component Latest Ref Rng & Units 01/28/2022 Hemoglobin A1C 4.3 - 5.6 % 5.4 Estimated Average Glucose mg/dL 108 Magnesium 1.7 - 2.3 mg/dL 2.2 Component Latest Ref Rng & Units 10/26/2021 01/28/2022 WBC 3.70 - 11.00 k/uL 5.56 5.14 RBC 3.90 - 5.20 m/uL 4.68 4.77 Hemoglobin 11.5 - 15.5 g/dL 14.1 14.4 Hematocrit 36.0 - 46.0 % 42.5 44.2 MCV 80.0 - 100.0 fL 90.8 92.7 MCH 26.0 - 34.0 pg 30.1 30.2 MCHC 30.5 - 36.0 g/dL 33.2 32.6 RDW-CV 11.5 - 15.0 % 12.5 12.2 Platelet Count 150 - 400 k/uL 218 247 MPV 9.0 - 12.7 fL 10.3 10.4 Neut% % 57.7 56.4 Abs Neut (ANC) 1.45 - 7.50 k/uL 3.21 2.90 Lymph% % 31.7 32.7 Abs Lymph 1.00 - 4.00 k/uL 1.[address] [place]% % 7.[address] [place] <0.87 k/uL 0.40 0.39 Eosin% % 2.3 2.1 Abs Eosin <0.46 k/uL 0.13 0.11 Baso% % 0.9 1.0 Abs Baso <0.11 k/uL 0.05 0.05 Immature Gran % % 0.2 0.2 IMMATURE GRANS (ABS) <0.10 k/uL <0.03 <0.03 NRBC /100 WBC 0.0 0.0 Absolute nRBC <0.01 k/uL <0.01 <0.01 DTYPE Auto Auto Component Latest Ref Rng & Units 10/26/2021 01/28/2022 Vitamin D 25 Hydroxy 31.0 - 80.0 ng/mL 85.9 (H) 70.3 Vitamin B12 232 - 1,245 pg/mL 675 1,224 EXAM: BP 118/58 Pulse 98 Resp 16 Wt 60.8 kg (134 lb) LMP 10/13/2006 SpO2 97% BMI 24.12 kg/m Pleasant well appearing adult woman in no acute distress. Alert and oriented all spheres. Normal affect and cognition. Speech normal. No deficits to learning or comprehension. Skin warm, dry, pink to lips and nailbeds. Normal turgor. Respirations regular and unlabored. HEENT: NCAT. No scleral icterus or conjunctival injection. TM's clear. Nose and oropharynx free from injection or lesion. Oral membranes moist and pink. No cervical lymph nodes. Thyroid non-tender, no masses, or enlargement. Carotids pulses 2+/4+ without bruits. No JVD with HOB at 30 degrees. Chest is normal shape. Lungs are clear to all allen with good air exchange through out. HRRR without murmur or gallop. No lifts, heaves, or rubs. Extrem: no clubbing or cyanosis. Edema: none. Extremities are warm and pink with prompt capillary refill. Neuro: CN 2-12 grossly intact. Motor full upper and lower symmetric. Sensory intact distally to light touch. DTR's 2/4+ symmetric biceps, triceps, brachioradialis, knee jerk, Achilles. Plantars down-going bilaterally. Cerebellar intact finger to nose, heel to hairston. Romberg negative, able to walk heel to toe in tandem. ELIF normal. Downgoing Babinski. Gait and balance otherwise normal on walking and turning. EKG: NSR without ischemic changes from 12/20/2019 comparison on my interpretation pending cardiology review. Normal axes. ASSESSMENT/PLAN: 1. Vasovagal symptom - ICD9: 780.2, ICD10: R55 (primary diagnosis) Suspect vasovagal by description: straining to wash leaning over when sx started, no loss of motor or sensory. Currently not neurologic impairment on exam. If any change, to notify. Cardiac risk: former smoker, Hx CVA, negative FH, low risk lipid profile 2. Elevated alkaline phosphatase level - ICD9: 790.5, ICD10: R74.8 Being followed with US RUQ Mild ALP elevation, normal AST, ALT, bili 3. Hypothyroidism, unspecified type - ICD9: 244.9, ICD10: E03.9 Controlled current dose. Discussed elevated FT3 with normal FT4 and TSH a not concerning but will review with Dr. Arias as no notations on results. 4. Hyperglycemia - ICD9: 790.29, ICD10: R73.9 Controlled in prediabetic range. 5. Mood disorder (HCC) - ICD9: 296.90, ICD10: F39 6. Anxiety with depression - ICD9: 300.4, ICD10: F41.8 Doing well. 7. Hx of ischemic vertebrobasilar artery cerebellar stroke - ICD9: V12.54, ICD10: Z86.73 Stable currently without neuro deficit 8. Occlusion and stenosis of right vertebral artery - ICD9: 433.20, ICD10: I65.01 History as above 9. Stenosis of left vertebral artery - ICD9: 433.20, ICD10: I65.02 Has had no follow up Alivia Leyva PA-C Addendum 05/11/2022 called 5:30- and reviewed notes above. She really feels this is r/t possible illness/ URI vs flu. No fever . Feeling better. Daughter pressing her to ask for stress test. Will review with Erik Arias through note and tomorrow in person. Alivia Leyva PA-C documented in this encounter [facility] 04-19-2022 History of Present illness Narrative CC: Henry Oliveira is a 66 year old female who presents to the office for follow up HPI: HERNAN, recently is changing over mask type with CPAP since she was mouth breathing during the night and having a lot of daytime fatigue symptoms that were overwhelming. Waiting to see if full face mask that she just received will help with some of her symptoms Vision concerns, has irregular astigmatism and cataracts. Had recent surgery for cataracts at [facility] Is recently fully retired, taking care of 2 granddaughters 2 days a week. Is looking forward hopefully to be able to travel a little eventually but unsure if will be able due to financials. Has tapered off her Prozac and feels overall her mood is stable. Relies on her Taoist audrey and friends for support. 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 right shoulder discomfort, comes and goes, is Right hand dominant Also some right ankle (medial area) soreness that comes and goes. No known injuries. Right knee pain and bursitis seems to be improving. No injuries to knee either. Use of topical aspercream and some exercises only PAST MEDICAL HISTORY Diagnosis Date Abnormal glandular Papanicolaou smear of cervix Abn. Pap smear (cervix) Asymptomatic varicose veins Depressive disorder, not elsewhere classified 09/27/2006 Hearing decreased Hyperlipidemia Hypothyroidism 2010 HERNAN on CPAP [facility] Peripheral vascular disease, unspecified (HCC) varicose veins Sleep apnea CPAP Supraspinatus tendon tear 04/03/2012 right shoulder Vitamin B12 deficiency Vitamin D deficiency 10/30/2013 PAST SURGICAL HISTORY Procedure Laterality Date COLPOSCOPY CERVIX UPPER/ADJACENT VAGINA Colposcopy CORRECT BUNION,SIMPLE 01-31-12 Bunion, left DILATION & CURETTAGE DX&/THER NONOBSTETRIC 1980s Dilation & curettage LIG/TRNSXJ FLP TUBE ABDL/VAG APPR UNI/BI COMPLETE Tubal ligation PAST SURGICAL HISTORY OF 11/2003 breast biopsy right, benign PAST SURGICAL HISTORY OF 1997 wrist surgery - after fracture, right PAST SURGICAL HISTORY OF 06/28/13 arthroscopy with open rotator cuff repair Current Outpatient Medications Medication Sig dextroamphetamine-amphetamine (ADDERALL) 10 mg tablet Take 0.5-1 tablets by mouth once daily for 30 days. traZODone (DESYREL) 50 mg tablet TAKE 1 TO 2 TABLETS AT BEDTIME FOR SLEEP ARMOUR THYROID 90 mg Take 1 tablet by mouth daily before breakfast. selenium 200 mcg cap Take by mouth. zinc sulfate (ZINC-15 ORAL) Take by mouth. vitamin B complex (B COMPLEX ORAL) Take 1 tablet by mouth once daily. L-LYSINE ORAL Take 1 capsule by mouth once daily. Cholecalciferol, Vitamin D3, 5,000 unit cap Take 1 capsule by mouth once daily. Aspirin 81 mg Tab Take 4 tablets by mouth one time only for 1 dose. cyclobenzaprine (FLEXERIL) 10 mg tablet Take 1 tablet by mouth three times daily as needed for muscle spasm. CPAP Initiate CPAP @ 6 cm of water with humidification. Mask (per patient preference) optional chin strap (if indicated) , filters, tubing, humidifier and lifetime supplies. aspirin 325 mg tablet Take 1 tablet by mouth once daily. Thyroid, Pork, (NATURE-THROID) 195 mg tab 1 tablet PO daily in the morning cyclobenzaprine (FLEXERIL) 10 mg tablet Take 1 tablet by mouth three times daily as needed for Muscle Spasm. triamcinolone acetonide (KENALOG) 0.1 % cream Apply 1 application to affected area twice daily as needed. Apply sparingly to area for rash/itching. ascorbic acid, vitamin C, (VITAMIN C) 500 mg tablet Take 1 tablet by mouth three times daily. PROPYLENE GLYCOL/PEG 400 (BLINK TEARS LUBRICATING) Eye Drops Use 1 Drop in both eyes four times daily. No current facility-administered medications for this visit. ALLERGIES Allergen Reactions Bactrim [Sulfametho* Hives Morphine Sulfate Itching Tea Tree Oil Rash Social History Tobacco Use Smoking status: Former Packs/day: 1.00 Years: 15.00 Pack years: 15.00 Types: Cigarettes Quit date: 02/12/1987 Years since quittin.2 Smokeless tobacco: Never Vaping Use Vaping Use: Never used Substance Use Topics Alcohol use: No Drug use: No ROS: See HPI PE: BP 138/80 Pulse 64 Temp (Src) 97.8 (Left Tympanic) Resp 16 Wt 135 lb (61.2kg) LMP 10/13/2006 Gen: A&OX3, NAD, non-toxic appearing HEENT: PERRLA, EOMs intact b/l, nares without drainage, pharynx without erythema, exudate, lesions, or drainage. Uvula midline. Neck: No LAD, no thyromegaly, no meningismus. CV: RRR, no murmur Lungs: CTA b/l, no wheezing Mild right shoulder discomfort with ROM only, no swelling or joint tenderness Right ankle with mild discomfort medial tendons of ankle without swelling or deformity Skin: No rashes, lesions, or wounds on exposed skin. ASSESSMENT/PLAN: 1. Vitamin B12 deficiency - ICD9: 266.2, ICD10: E53.8 (primary diagnosis) - continue supplement, stable labs recently 2. Vitamin D deficiency - ICD9: 268.9, ICD10: E55.9 - continue supplement, stable labs recently 3. Dyslipidemia - ICD9: 272.4, ICD10: E78.5 - to be determined upon return of lab results - Encouraged following a low fat, low cholesterol diet. - Check fasting lipid panel - LIPID PANEL BASIC 4. Hypothyroidism, unspecified type - ICD9: 244.9, ICD10: E03.9 - Instructed patient on importance of taking on an empty stomach either first thing in the morning or at bedtime. Stable - Behavioral intervention - TSH BLD - T4 FREE/FREE THYROX - T3 FREE BLD - COMP METABOLIC PANEL 5. Elevated alkaline phosphatase level - ICD9: 790.5, ICD10: R74.8 - recheck labs - ALK PHOS ISOENZYM BL 6. Chronic right shoulder pain - ICD9: 719.41, 338.29, ICD10: M25.511, G89.29 Likely rotator cuff tendinitis, need for stretches and exercise as d/w her today 7. Chronic pain of right ankle - ICD9: 719.47, 338.29, ICD10: M25.571, G89.29 Likely related to lack of stretches and tendinitis of ankle medial area. Need for follow up with Supervisor [employer] if exercises don't help symptoms Shin Arias DO Return if no improvement. Follow up with Shin Arias DO. To ER if develops chest pain, shortness of breath Discussed risks, benefits, alternatives, and potential side effects of medications. Patient/Guardian expressed understanding and agreed with the plan. See patient instructions. Shin Arias DO [address] [place] [address] documented in this encounter [facility] 03-16-2022 Miscellaneous Notes PDMP website checked and validated. All prescriptions have been APPROPRIATELY filled. No suspicious activity was identified. 03/16/2022 by Jossy Chahal APRN.CNP The following approved medication requests have been transmitted electronically. Requested Prescriptions Signed Prescriptions Disp Refills dextroamphetamine-amphetamine (ADDERALL) 10 mg tablet 30 tablet 0 Sig: Take 0.5-1 tablets by mouth once daily for 30 days. Authorizing Provider: JOSSY CHAHAL APRN.CNP Patient has been identified by name and date of : Yes Requested Prescriptions Pending Prescriptions Disp Refills dextroamphetamine-amphetamine (ADDERALL) 10 mg tablet 30 tablet 0 Sig: Take 0.5-1 tablets by mouth once daily for 30 days. RX INSTRUCTIONS: Patient aware RX will be sent to pharmacy. No need to notify patient. Lupe Garcia Pss documented in this encounter [facility] 01-21-2022 Instructions Shin Arias DO - 01/21/2022 12:31 PM EDT Vitamin B complex in the AM- liquid or chewable (with at least 2000 mcg or more of vitamin B12 within it) documented in this encounter [facility] 01-21-2022 History of Present illness Narrative CC: Henry Oliveira is a 66 year old female who presents to the office for follow up HPI: HERNAN, recently is changing over mask type with CPAP since she was mouth breathing during the night and having a lot of daytime fatigue symptoms that were overwhelming. Waiting to see if full face mask that she just received will help with some of her symptoms Vision concerns, has irregular astigmatism and cataracts. Is in need of cataract surgery upcoming. Will be seeing Dr. Patterson for surgery upcoming. Is recently fully retired, taking care of 2 granddaughters 2 days a week. Is looking forward hopefully to be able to travel a little eventually but unsure if will be able due to financials. Has tapered off her Prozac and feels overall her mood is stable. Relies on her Taoist audrey and friends for support. Hypothyroidism, + fatigue, she is unsure if this is related to her thyroid dx or her HERNAN and not tolerating masks well. PAST MEDICAL HISTORY Diagnosis Date Abnormal glandular Papanicolaou smear of cervix Abn. Pap smear (cervix) Asymptomatic varicose veins Depressive disorder, not elsewhere classified 09/27/2006 Hearing decreased Hyperlipidemia Hypothyroidism 2010 HERNAN on CPAP [facility]ME [facility] Peripheral vascular disease, unspecified (HCC) varicose veins Sleep apnea CPAP Supraspinatus tendon tear 04/03/2012 right shoulder Vitamin B12 deficiency Vitamin D deficiency 10/30/2013 PAST SURGICAL HISTORY Procedure Laterality Date COLPOSCOPY CERVIX UPPER/ADJACENT VAGINA Colposcopy CORRECT BUNION,SIMPLE 01-31-12 Bunion, left DILATION & CURETTAGE DX&/THER NONOBSTETRIC 1980s Dilation & curettage LIG/TRNSXJ FLP TUBE ABDL/VAG APPR UNI/BI COMPLETE Tubal ligation PAST SURGICAL HISTORY OF 11/2003 breast biopsy right, benign PAST SURGICAL HISTORY OF 1997 wrist surgery - after fracture, right PAST SURGICAL HISTORY OF 06/28/13 arthroscopy with open rotator cuff repair Social History: Social History Tobacco Use Smoking status: Former Packs/day: 1.00 Years: 15.00 Pack years: 15.00 Types: Cigarettes Quit date: 02/12/1987 Years since quittin.9 Smokeless tobacco: Never Vaping Use Vaping Use: Never used Substance Use Topics Alcohol use: No Drug use: No FAMILY HISTORY Problem Relation Age of Onset Cancer Father LUNG Hypertension Mother Cataract Mother Heart Maternal Grandfather Cancer Maternal Aunt BLADDER Cancer Maternal Uncle KIDNEY Diabetes Maternal Uncle Diabetes Maternal Aunt other (HODGKINS) Sister Lung Cancer Breast Cancer Maternal Aunt Hyperlipidemia Son Hypertension Son Current Outpatient prescriptions: traZODone (DESYREL) 50 mg tablet TAKE 1 TO 2 TABLETS AT BEDTIME FOR SLEEP dextroamphetamine-amphetamine (ADDERALL) 10 mg tablet Take 0.5-1 tablets by mouth once daily for 30 days. FLUoxetine (PROZAC) 20 mg capsule Take 1 capsule by mouth once daily. ARMOUR THYROID 90 mg Take 1 tablet by mouth daily before breakfast. selenium 200 mcg cap Take by mouth. zinc sulfate (ZINC-15 ORAL) Take by mouth. cyclobenzaprine (FLEXERIL) 10 mg tablet Take 1 tablet by mouth three times daily as needed for muscle spasm. CPAP Initiate CPAP @ 6 cm of water with humidification. Mask (per patient preference) optional chin strap (if indicated) , filters, tubing, humidifier and lifetime supplies. vitamin B complex (B COMPLEX ORAL) Take 1 tablet by mouth once daily. L-LYSINE ORAL Take 1 capsule by mouth once daily. aspirin 325 mg tablet Take 1 tablet by mouth once daily. Thyroid, Pork, (NATURE-THROID) 195 mg tab 1 tablet PO daily in the morning cyclobenzaprine (FLEXERIL) 10 mg tablet Take 1 tablet by mouth three times daily as needed for Muscle Spasm. triamcinolone acetonide (KENALOG) 0.1 % cream Apply 1 application to affected area twice daily as needed. Apply sparingly to area for rash/itching. Cholecalciferol, Vitamin D3, 5,000 unit cap Take 1 capsule by mouth once daily. ascorbic acid, vitamin C, (VITAMIN C) 500 mg tablet Take 1 tablet by mouth three times daily. PROPYLENE GLYCOL/PEG 400 (BLINK TEARS LUBRICATING) Eye Drops Use 1 Drop in both eyes four times daily. Aspirin 81 mg Tab Take 4 tablets by mouth one time only for 1 dose. Allergies: ALLERGIES Allergen Reactions Bactrim [Sulfametho* Hives Morphine Sulfate Itching Tea Tree Oil Rash ROS: See HPI PE: 01/21/22 1203 BP: 120/70 Pulse: 76 Resp: 16 Temp: 36.8 C (98.2 F) TempSrc: Left Tympanic Weight: 61.2 kg (135 lb) Height: 158.8 cm (5' 2.5 ) Gen: A&O, NAD, non-toxic appearing, Pleasant, cooperative HEENT: NT/AC, PERRLA, EOMs intact b/l, nares clear and patent b/l, pharynx without erythema, exudate or lesions. MMM, Uvula midline. EACs without erythema or debris. TMs pearly bañuelos with intact landmarks b/l. Neck: supple, No cervical LAD, no thyromegaly, no carotid bruits CV: RRR, normal S1 and S2, no murmurs, no gallops, no rubs, Pulses 2+ and symmetric in UE and LE b/l Lungs: normal respiratory effort, CTA b/l, no wheezing or rhonchi or rales Abd: soft, NT, ND, +BS, no hepatosplenomegaly MS: FROM all 4 extremities Neuro: CN II-XII intact b/l, strength 5/5 b/l UE and LE, DTRs 2/4 UE and LE, sensation intact. Skin: warm, dry, intact, No rashes or lesions on exposed skin. No edema, normal pulses ASSESSMENT/PLAN: 1. Age-related cataract of both eyes, unspecified age-related cataract type - ICD9: 366.10, ICD10: H25.9 (primary diagnosis) - referral to ophthalmology for evaluation for cataract surgery - CONSULT TO OPHTHALMOLOGY 2. Double vision - ICD9: 368.2, ICD10: H53.2 See above, has new onset of cataracts and astigmatism per specialist - CONSULT TO OPHTHALMOLOGY 3. Vitamin B12 deficiency - ICD9: 266.2, ICD10: E53.8 - recheck labs, continue supplement - VITAMIN B12 BLOOD 4. Vitamin D deficiency - ICD9: 268.9, ICD10: E55.9 - recheck labs, continue supplement - VITAMIN D 25 HYDROXY 5. Hypothyroidism, unspecified type - ICD9: 244.9, ICD10: E03.9 - Instructed patient on importance of taking on an empty stomach either first thing in the morning or at bedtime. - continue current dose of thyroid hormone Stable - Behavioral intervention - THYROID PEROXIDASE ANTIBODY BLOOD - MAGNESIUM BLD - CBC + DIFF - COMP METABOLIC PANEL - TSH BLD - T4 FREE/FREE THYROX - T3 FREE BLD 6. Dyslipidemia - ICD9: 272.4, ICD10: E78.5 - to be determined upon return of lab results - Encouraged following a low fat, low cholesterol diet. - Discussed the benefits of regular aerobic exercise - Check fasting lipid panel - LIPID PANEL BASIC 7. Hyperglycemia - ICD9: 790.29, ICD10: R73.9 - HGB A1C 8. Anxiety with depression - ICD9: 300.4, ICD10: F41.8 She has successfully tapered off Prozac, overall mood seems stable Shin Arias DO To ER if develops chest pain, shortness of breath, or severe worsening of symptoms. Discussed risks, benefits, alternatives, and potential side effects of medications. Patient expressed understanding and agreed with the plan. Shin Arias DO [address] [place] [address] documented in this encounter [facility] 01-19-2022 Miscellaneous Notes The following approved medication requests have been transmitted electronically. Requested Prescriptions Signed Prescriptions Disp Refills dextroamphetamine-amphetamine (ADDERALL) 10 mg tablet 30 tablet 0 Sig: Take 0.5-1 tablets by mouth once daily for 30 days. Authorizing Provider: IVANA MITCHELL APRN.[facility] PDMP website checked and validated. All prescriptions have been APPROPRIATELY filled. No suspicious activity was identified. 01/19/2022 by Ivana Mitchell CNP. Last office visit: 10/22/21 Next appointment scheduled: 01/21/22 Patient phones requesting refills as follows: Requested Prescriptions Pending Prescriptions Disp Refills dextroamphetamine-amphetamine (ADDERALL) 10 mg tablet 30 tablet 0 Sig: Take 0.5-1 tablets by mouth once daily for 30 days. Please review and advise. Kayla Schwarz LPN Patient has been identified by name and date of : Yes Requested Prescriptions Pending Prescriptions Disp Refills dextroamphetamine-amphetamine (ADDERALL) 10 mg tablet 30 tablet 0 Sig: Take 0.5-1 tablets by mouth once daily for 30 days. RX INSTRUCTIONS: Please send today, if possible. Patient aware RX will be sent to pharmacy. No need to notify patient. Angela Buchanan Pss documented in this encounter [facility] 12-31-2021 Miscellaneous Notes Patient has been identified by name and date of : Yes Requested Prescriptions Pending Prescriptions Disp Refills traZODone (DESYREL) 50 mg tablet [Pharmacy Med Name: TRAZODONE HYDROCHLORIDE 50 MG Tablet] 90 tablet 0 Sig: TAKE 1 TO 2 TABLETS AT BEDTIME FOR SLEEP RX INSTRUCTIONS: Patient aware RX will be sent to pharmacy. No need to notify patient. Komal Smith MA Nohemi: 10/2019 Nov: 01/2022 Last refill: 05/2021 documented in this encounter [facility] 11-25-2021 Miscellaneous Notes The following approved medication requests have been transmitted electronically. Signed Prescriptions Disp Refills dextroamphetamine-amphetamine (ADDERALL) 10 mg tablet 30 tablet 0 Sig: Take 0.5-1 tablets by mouth once daily for 30 days. SANDRA Class: C-II RADHA: No Authorizing Provider: JOSSY CHAHAL APRN.[employer] PDMP website checked and validated. All prescriptions have been APPROPRIATELY filled. No suspicious activity was identified. 11/25/2021 by Jossy Chahal APRN.[employer]PER[employer] OFFICER Pharmacy verified in Epic Patient has been identified by name and date of : Yes Patient aware RX will be sent to pharmacy. No need to notify patient. Patient phones for refill(s): Pending Prescriptions Disp Refills DEXTROAMPHETAMINE-AMPHETAMINE 10 MG TABLET 30 tablet 0 Sig: Take 0.5-1 tablets by mouth once daily for 30 days. SANDRA Class: C-II RADHA: No Date of last office visit : 10/22/2021 Labs-10/26/21 Date of next office visit : 01/21/2022 Last 2 Encounter Wt Readings: Date: Wt: 10/22/2021 60.8 kg (134 lb) 06/23/2021 66.7 kg (147 lb) Please advise. Gayla Hernandez Pss documented in this encounter [facility] 10-23-2021 History of Present illness Narrative CC: Henry Oliveira is a 66 year old female who presents to the office for follow up HPI: Mood, overall feels the Prozac and prn trazodone for insomnia is helping symptoms stay stable. 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 Hypothyroidism, taking armour thyroid hormone supplement regularly ADD/concentration deficit, states that her Focalin rx is getting to be too expensive, wondering if can try alternative. Didn't tolerate XR formulation of Adderall well- hasn't tried short acting type yet. Has had some fatigue symptoms, also history of vitamin d deficiency PAST MEDICAL HISTORY Diagnosis Date Abnormal glandular Papanicolaou smear of cervix Abn. Pap smear (cervix) Asymptomatic varicose veins Depressive disorder, not elsewhere classified 09/27/2006 Hearing decreased Hyperlipidemia Hypothyroidism 2010 HERNAN on CPAP [facility] Peripheral vascular disease, unspecified (HCC) varicose veins Sleep apnea CPAP Supraspinatus tendon tear 04/03/2012 right shoulder Vitamin B12 deficiency Vitamin D deficiency 10/30/2013 PAST SURGICAL HISTORY Procedure Laterality Date COLPOSCOPY CERVIX UPPER/ADJACENT VAGINA Colposcopy CORRECT BUNION,SIMPLE 01-31-12 Bunion, left DILATION & CURETTAGE DX&/THER NONOBSTETRIC 1980s Dilation & curettage LIG/TRNSXJ FLP TUBE ABDL/VAG APPR UNI/BI COMPLETE Tubal ligation PAST SURGICAL HISTORY OF 11/2003 breast biopsy right, benign PAST SURGICAL HISTORY OF 1997 wrist surgery - after fracture, right PAST SURGICAL HISTORY OF 06/28/13 arthroscopy with open rotator cuff repair Current Outpatient Medications Medication Sig FLUoxetine (PROZAC) 20 mg capsule Take 1 capsule by mouth once daily. ARMOUR THYROID 90 mg Take 1 tablet by mouth daily before breakfast. selenium 200 mcg cap Take by mouth. zinc sulfate (ZINC-15 ORAL) Take by mouth. traZODone (DESYREL) 50 mg tablet Take 1-2 tablets by mouth daily at bedtime. For sleep cyclobenzaprine (FLEXERIL) 10 mg tablet Take 1 tablet by mouth three times daily as needed for muscle spasm. CPAP Initiate CPAP @ 6 cm of water with humidification. Mask (per patient preference) optional chin strap (if indicated) , filters, tubing, humidifier and lifetime supplies. vitamin B complex (B COMPLEX ORAL) Take 1 tablet by mouth once daily. L-LYSINE ORAL Take 1 capsule by mouth once daily. aspirin 325 mg tablet Take 1 tablet by mouth once daily. Thyroid, Pork, (NATURE-THROID) 195 mg tab 1 tablet PO daily in the morning cyclobenzaprine (FLEXERIL) 10 mg tablet Take 1 tablet by mouth three times daily as needed for Muscle Spasm. triamcinolone acetonide (KENALOG) 0.1 % cream Apply 1 application to affected area twice daily as needed. Apply sparingly to area for rash/itching. Cholecalciferol, Vitamin D3, 5,000 unit cap Take 1 capsule by mouth once daily. ascorbic acid, vitamin C, (VITAMIN C) 500 mg tablet Take 1 tablet by mouth three times daily. PROPYLENE GLYCOL/PEG 400 (BLINK TEARS LUBRICATING) Eye Drops Use 1 Drop in both eyes four times daily. Aspirin 81 mg Tab Take 4 tablets by mouth one time only for 1 dose. dextroamphetamine-amphetamine (ADDERALL) 10 mg tablet Take 0.5-1 tablets by mouth once daily for 30 days. No current facility-administered medications for this visit. ALLERGIES Allergen Reactions Bactrim [Sulfametho* Hives Morphine Sulfate Itching Tea Tree Oil Rash Social History Tobacco Use Smoking status: Former Smoker Packs/day: 1.00 Years: 15.00 Pack years: 15.00 Types: Cigarettes Quit date: 02/12/1987 Years since quittin.7 Smokeless tobacco: Never Used Vaping Use Vaping Use: Never used Substance Use Topics Alcohol use: No Drug use: No ROS: See HPI PE: BP 120/60 Pulse 64 Temp (Src) 98.9 (Right Tympanic) Resp 16 Wt 134 lb (60.8kg) LMP 10/13/2006 Gen: A&OX3, NAD, non-toxic appearing HEENT: PERRLA, EOMs intact b/l, nares without drainage, pharynx without erythema, exudate, lesions, or drainage. Uvula midline. Neck: No LAD, no thyromegaly, no meningismus. CV: RRR, no murmur Lungs: CTA b/l, no wheezing Skin: No rashes, lesions, or wounds on exposed skin. No edema, normal pulses Arthritis joints ASSESSMENT/PLAN: 1. Anxiety with depression - ICD9: 300.4, ICD10: F41.8 (primary diagnosis) Rx refilled, stable - FLUOXETINE 20 MG CAPSULE 2. Mood disorder (HCC) - ICD9: 296.90, ICD10: F39 - rx refilled, stable - FLUOXETINE 20 MG CAPSULE 3. Concentration deficit - ICD9: 799.51, ICD10: R41.840 - d/c Focalin due to co pay cost for her. Trial of short acting adderall 5-10 mg in the AM, she is aware of possible SE with medication, f/u in 1-2 months and prn - DEXTROAMPHETAMINE-AMPHETAMINE 10 MG TABLET 4. Hypothyroidism, unspecified type - ICD9: 244.9, ICD10: E03.9 - Instructed patient on importance of taking on an empty stomach either first thing in the morning or at bedtime. Stable - Behavioral intervention, - Eat well program and - Continue current medications - TSH BLD - T4 FREE/FREE THYROX - T3 FREE BLD 5. Vitamin B12 deficiency - ICD9: 266.2, ICD10: E53.8 - recheck labs, has fatigue - VITAMIN B12 BLOOD 6. Vitamin D deficiency - ICD9: 268.9, ICD10: E55.9 - recheck labs, has fatigue - VITAMIN D 25 HYDROXY 7. Fatigue, unspecified type - ICD9: 780.79, ICD10: R53.83 - recheck labs, has fatigue - CBC + DIFF - COMP METABOLIC PANEL - TSH BLD - T4 FREE/FREE THYROX - T3 FREE BLD - VITAMIN D 25 HYDROXY - VITAMIN B12 BLOOD 8. Dyslipidemia - ICD9: 272.4, ICD10: E78.5 - to be determined upon return of lab results - Encouraged following a low fat, low cholesterol diet. - LIPID PANEL BASIC Shin Arias DO PDMP website checked and validated. All prescriptions have been APPROPRIATELY filled. No suspicious activity was identified. 10/23/2021 by Shin Arias DO Return if no improvement. Follow up with Shin Arias DO. To ER if develops chest pain, shortness of breath Discussed risks, benefits, alternatives, and potential side effects of medications. Patient/Guardian expressed understanding and agreed with the plan. See patient instructions. Shin Arias DO [address] [place] [address] documented in this encounter [facility] 10-22-2021 Instructions Shin Arias DO - 10/22/2021 4:46 PM EDT Change your Marley to Zyrtec 10 mg or to Xyzal 5-10 mg a day for allergy symptoms Eye lubricating drops or allergy eye drops 1-2 times a day to help eye symptoms. documented in this encounter [facility] 10-08-2021 Miscellaneous Notes PDMP website checked and validated. All prescriptions have been APPROPRIATELY filled. No suspicious activity was identified. 10/08/2021 by Jossy Chaahl APRN.CNP The following approved medication requests have been transmitted electronically. Signed Prescriptions Disp Refills dexmethylphenidate HCl (FOCALIN) 5 mg tablet 28 tablet 0 Sig: Take 1 tablet by mouth twice daily for 14 days. SANDRA Class: C-II RADHA: No Authorizing Provider: JOSSY CHAHAL APRN.CNP Patient has been identified by name and date of : Yes Pending Prescriptions Disp Refills DEXMETHYLPHENIDATE 5 MG TABLET 28 tablet 0 Sig: Take 1 tablet by mouth twice daily for 14 days. SANDRA Class: C-II RADHA: No NOHEMI-06/23/21 Labs-06/30/21 NOV-10/22/21 med filled 08/04/21 ends 09/03/21 RX INSTRUCTIONS: Patient aware RX will be sent to pharmacy. No need to notify patient. NOTE: patient has only three days left of this medication Mary Jo Sedinger [employer] documented in this encounter [facility] 09-09-2021 Miscellaneous Notes PDMP website checked and validated. All prescriptions have been APPROPRIATELY filled. No suspicious activity was identified. 09/09/2021 by Jossy Chahal APRN.CNP The following approved medication requests have been transmitted electronically. Signed Prescriptions Disp Refills dexmethylphenidate HCl (FOCALIN) 5 mg tablet 60 tablet 0 Sig: Take 1 tablet by mouth twice daily for 30 days. SANDRA Class: C-II RADHA: No Authorizing Provider: JOSSY CHAHAL APRN.CNP Patient has been identified by name and date of : Yes Last office visit in this department: 06/23/2021 RX INSTRUCTIONS: Patient aware RX will be sent to pharmacy. No need to notify patient. Patient phones requesting refills as follows: Pending Prescriptions Disp Refills DEXMETHYLPHENIDATE 5 MG TABLET 60 tablet 0 Sig: Take 1 tablet by mouth twice daily for 30 days. SANDRA Class: C-II RADHA: No Please review and advise. Sera PECK documented in this encounter [facility] 08-09-2021 Miscellaneous Notes The following approved medication requests have been transmitted electronically. Signed Prescriptions Disp Refills ARMOUR THYROID 90 mg 90 tablet 3 Sig: Take 1 tablet by mouth daily before breakfast. 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 female presenting with complaint of bunion and hammertoes. Left foot bunion with continued recurrence after surgical treatment. Had difficulty healing previous procedure. Here to discuss potential treatments. She is a previous smoker Past Medical History: Diagnosis Date Depression Hypothyroid Stroke 09/2018 headache, vertigo, nausea; MR small patchy R inferior, medial cerebellar infarct; CTA head, neck occlusion origin R vertebral, reconstituted distally, R PICA not seen; TTE no embolic source No past surgical history on file. Social History Occupational History Not on file Tobacco Use Smoking status: Former Smoker Packs/day: 2.00 Years: 15.00 Pack years: 30.00 Types: Cigarettes Quit date: 1988 Years since quittin.2 Smokeless tobacco: Never Used Substance and Sexual Activity Alcohol use: Not on file Drug use: Not on file Sexual activity: Not on file History reviewed. No pertinent family history. Current Outpatient Medications Medication Sig aspirin EC [address] Take 1 tablet by mouth daily. (Patient taking differently: Take 81 mg by mouth daily.) Dexmethylphenidate HCl 5 MG tablet Take 5 mg by mouth 2 times daily. FLUoxetine 20 MG capsule Take 20 mg by mouth daily. thyroid 90 MG Tab Take 1 tablet by mouth every morning before breakfast. traZODone 50 MG tablet Take 50-100 mg by mouth. atorvastatin 40 MG Tab tablet Take 1 tablet by mouth at bedtime. (Patient not taking: Reported on 07/29/2021) docusate 100 MG Cap Take 1 capsule by mouth 2 times daily. (Patient not taking: Reported on 07/29/2021) fluoxetine 10 MG Cap capsule Take 3 capsules by mouth daily. (Patient not taking: Reported on 07/29/2021) heparin 5000 UNIT/ML Solution Inject 1 mL under the skin 3 times daily (at 8am, 4 pm and 10pm). (Patient not taking: Reported on 07/29/2021) lisinopril 5 MG Tab tablet Take 1 tablet by mouth daily. (Patient not taking: Reported on 07/29/2021) ondansetron 4 MG Tab tablet Take 1 tablet by mouth every 6 hours as needed for Nausea / Vomiting. (Patient not taking: Reported on 07/29/2021) senna 8.6 MG Tab Take 1 tablet by mouth daily every morning. (Patient not taking: Reported on 07/29/2021) Allergies Allergen Reactions Tea Tree Oil Rash Morphine Itching Sulfamethoxazole Hives Review of Systems: Constitutional: Negative. Negative for fever, chills, weight loss, weight gain and malaise/fatigue. Skin: Negative. Negative for rash, itching and skin lesions. Musculoskeletal: Negative. Negative for myalgias, back pain, joint pain and falls. Neurological: Negative. Negative for dizziness and seizures. Physical Exam General:Henry Oliveira is seated comfortably in the examination room. She is alert and oriented to time and place. In no acute distress. Mood and affect are normal and appropriate to situation.Henry presents well developed, well nourished female. Henry presents ambulating with a normal gait and shoe gear. Smoking Status Former Smoker Skin: Normal. No abrasions, lacerations, ecchymosis noted. Mild redness at the bunion metatarsal. Previous incisions healed. Musculoskeletal:all joints tested WNL and muscle strength 5/5 for all groups tested. Mild pain with limited motion bilateral great toes. Hypermobile TMT joint. Neurological:protective sensation grossly intact. Vascular: temperature warm to warm proximal to distal and DP and PT pulses +2 bilateral. Imaging Studies: Reviewed Henry was seen today for pain and pain. Diagnoses and all orders for this visit: Bilateral foot pain - XR FOOT LEFT 3 VIEWS; Future - XR FOOT RIGHT 3 VIEWS; Future Plan: On today's visit I have reviewed with the patient the diagnoses and treatment options for her lower extremity pathology. I have explained to her conservative treatment options. All of her questions were answered regarding this diagnosis. I did discuss with Henry Oliveira the biomechanics of her foot and how this can contribute to abnormal pressure uptake and eventual pain. The potential for further pain as well as short term and senior care results of neglecting the mechanics of this. I did therefore recommend the use of orthotics and improved control of the mechanics of her foot and how this can improve the pain. We discussed the etiology of the bunion deformity as well as treatment options. This included a discussion on the conservative treatment options available including wearing shoes with a wide toe box, padding, antiinflammatory medications, and icing. We also briefly discussed surgical options to address this. documented in this encounter [facility] 06-30-2021 Miscellaneous Notes Pt notified via [employer] message Jaz Addison Ma The following approved medication requests have been transmitted electronically. Signed Prescriptions Disp Refills FLUoxetine (PROZAC) 20 mg capsule 90 capsule 1 Sig: Take 1 capsule by mouth once daily. RADHA: No Authorizing Provider: SHIN ARIAS DO Please load rx's needed Shin Arias DO PT called and wanted her medication to be sent to [facility] in [place] instead of [employer]. documented in this encounter [facility] 11-04-2013 History of Past i llness Narrative Problem Noted Date Resolved Date Pain in joint, shoulder region 11/04/2013 0 11/30/2015 Rotator cuff (capsule) sprain 05/23/2012 Traumatic tear of right rotator cuff 05/03/2012 11/11/2013 Adjustment disorder with mixed anxiety and depre ssed mood 09/19/2008 11/30/2015 Anxiety state, unspecified 12/12/200609/19 Cervicalgia 11/13/2006 06/28/2007 Sprain of neck 10/11/2006 06/28/2007 Depressive disorder, not elsewhere classified 09/19/2008 documented as of this encounter (statuses as of 08/09/2021) [facility] History of Past illness Narrative* Problem Noted Date Resolved Date Pain in joint, shoulder region 11/04/2013 0 11/30/2015 Rotator cuff (capsule) sprain 05/23/2012 Traumatic tear of right rotator cuff 05/03/2012 11/11/2013 Adjustment disorder with mixed anxiety and depre ssed mood 09/19/2008 11/30/2015 Anxiety state, unspecified 12/12/200609/19 Cervicalgia 11/13/2006 06/28/2007 Sprain of neck 10/11/2006 06/28/2007 Depressive disorder, not elsewhere classified 09/19/2008 documented as of this encounter (statuses as of 09/09/2021) [facility] of Past illness Narrative* Problem Noted Date Resolved Date Pain in joint, shoulder region 11/04/2013 0 11/30/2015 Rotator cuff (capsule) sprain 05/23/2012 Traumatic tear of right rotator cuff 05/03/2012 11/11/2013 Adjustment disorder with mixed anxiety and depre ssed mood 09/19/2008 11/30/2015 Anxiety state, unspecified 12/12/200609/19 Cervicalgia 11/13/2006 06/28/2007 Sprain of neck 10/11/2006 06/28/2007 Depressive disorder, not elsewhere classified 09/19/2008 documented as of this encounter (statuses as of 10/08/2021) [facility] of Past illness Narrative* Problem Noted Date Resolved Date Pain in joint, shoulder region 11/04/2013 0 11/30/2015 Rotator cuff (capsule) sprain 05/23/2012 Traumatic tear of right rotator cuff 05/03/2012 11/11/2013 Adjustment disorder with mixed anxiety and depre ssed mood 09/19/2008 11/30/2015 Anxiety state, unspecified 12/12/200609/19 Cervicalgia 11/13/2006 06/28/2007 Sprain of neck 10/11/2006 06/28/2007 Depressive disorder, not elsewhere classified 09/19/2008 documented as of this encounter (statuses as of 10/16/2021) [facility] of Past [facility] Narrative* Problem Noted Date Resolved Date Pain in joint, shoulder region 11/04/2013 0 11/30/2015 Rotator cuff (capsule) sprain 05/23/2012 Traumatic tear of right rotator cuff 05/03/2012 11/11/2013 Adjustment disorder with mixed anxiety and depre ssed mood 09/19/2008 11/30/2015 Anxiety state, unspecified 12/12/200609/19 Cervicalgia 11/13/2006 06/28/2007 Sprain of neck 10/11/2006 06/28/2007 Depressive disorder, not elsewhere classified 09/19/2008 documented as of this encounter (statuses as of 10/23/2021) [facility] Narrative* Problem Noted Date Resolved Date Pain in joint, shoulder region 11/04/2013 0 11/30/2015 Rotator cuff (capsule) sprain 05/23/2012 Traumatic tear of right rotator cuff 05/03/2012 11/11/2013 Adjustment disorder with mixed anxiety and depre ssed mood 09/19/2008 11/30/2015 Anxiety state, unspecified 12/12/200609/19 Cervicalgia 11/13/2006 06/28/2007 Sprain of neck 10/11/2006 06/28/2007 Depressive disorder, not elsewhere classified 09/19/2008 documented as of this encounter (statuses as of 11/15/2021) [facility] Narrative* Problem Noted Date Resolved Date Pain in joint, shoulder region 11/04/2013 0 11/30/2015 Rotator cuff (capsule) sprain 05/23/2012 Traumatic tear of right rotator cuff 05/03/2012 11/11/2013 Adjustment disorder with mixed anxiety and depre ssed mood 09/19/2008 11/30/2015 Anxiety state, unspecified 12/12/200609/19 Cervicalgia 11/13/2006 06/28/2007 Sprain of neck 10/11/2006 06/28/2007 Depressive disorder, not elsewhere classified 09/19/2008 documented as of this encounter (statuses as of 11/25/2021) [facility] illness Narrative* Problem Noted Date Resolved Date Pain in joint, shoulder region 11/04/2013 0 11/30/2015 Rotator cuff (capsule) sprain 05/23/2012 Traumatic tear of right rotator cuff 05/03/2012 11/11/2013 Adjustment disorder with mixed anxiety and depre ssed mood 09/19/2008 11/30/2015 Anxiety state, unspecified 12/12/200609/19 Cervicalgia 11/13/2006 06/28/2007 Sprain of neck 10/11/2006 06/28/2007 Depressive disorder, not elsewhere classified 09/19/2008 documented as of this encounter (statuses as of 12/31/2021) [facility] Narrative* Problem Noted Date Resolved Date Pain in joint, shoulder region 11/04/2013 0 11/30/2015 Rotator cuff (capsule) sprain 05/23/2012 Traumatic tear of right rotator cuff 05/03/2012 11/11/2013 Adjustment disorder with mixed anxiety and depre ssed mood 09/19/2008 11/30/2015 Anxiety state, unspecified 12/12/200609/19 Cervicalgia 11/13/2006 06/28/2007 Sprain of neck 10/11/2006 06/28/2007 Depressive disorder, not elsewhere classified 09/19/2008 documented as of this encounter (statuses as of 01/19/2022) [facility] of [facility] Narrative* Problem Noted Date Resolved Date Pain in joint, shoulder region 11/04/2013 0 11/30/2015 Rotator cuff (capsule) sprain 05/23/2012 Traumatic tear of right rotator cuff 05/03/2012 11/11/2013 Adjustment disorder with mixed anxiety and depre ssed mood 09/19/2008 11/30/2015 Anxiety state, unspecified 12/12/200609/19 Cervicalgia 11/13/2006 06/28/2007 Sprain of neck 10/11/2006 06/28/2007 Depressive disorder, not elsewhere classified 09/19/2008 documented as of this encounter (statuses as of 01/21/2022) [facility] of [facility] Narrative* Problem Noted Date Resolved Date Pain in joint, shoulder region 11/04/2013 0 11/30/2015 Rotator cuff (capsule) sprain 05/23/2012 Traumatic tear of right rotator cuff 05/03/2012 11/11/2013 Adjustment disorder with mixed anxiety and depre ssed mood 09/19/2008 11/30/2015 Anxiety state, unspecified 12/12/200609/19 Cervicalgia 11/13/2006 06/28/2007 Sprain of neck 10/11/2006 06/28/2007 Depressive disorder, not elsewhere classified 09/19/2008 documented as of this encounter (statuses as of 03/16/2022) [facility] Narrative* Problem Noted Date Resolved Date Pain in joint, shoulder region 11/04/2013 0 11/30/2015 Rotator cuff (capsule) sprain 05/23/2012 Traumatic tear of right rotator cuff 05/03/2012 11/11/2013 Adjustment disorder with mixed anxiety and depre ssed mood 09/19/2008 11/30/2015 Anxiety state, unspecified 12/12/200609/19 Cervicalgia 11/13/2006 06/28/2007 Sprain of neck 10/11/2006 06/28/2007 Depressive disorder, not elsewhere classified 09/19/2008 documented as of this encounter (statuses as of 04/19/2022) [facility] of Past illness Narrative* Problem Noted Date Resolved Date Pain in joint, shoulder region 11/04/2013 0 11/30/2015 Rotator cuff (capsule) sprain 05/23/2012 Traumatic tear of right rotator cuff 05/03/2012 11/11/2013 Adjustment disorder with mixed anxiety and depre ssed mood 09/19/2008 11/30/2015 Anxiety state, unspecified 12/12/200609/19 Cervicalgia 11/13/2006 06/28/2007 Sprain of neck 10/11/2006 06/28/2007 Depressive disorder, not elsewhere classified 09/19/2008 documented as of this encounter (statuses as of 05/17/2022) [facility] Narrative* Problem Noted Date Resolved Date Pain in joint, shoulder region 11/04/2013 0 11/30/2015 Rotator cuff (capsule) sprain 05/23/2012 Traumatic tear of right rotator cuff 05/03/2012 11/11/2013 Adjustment disorder with mixed anxiety and depre ssed mood 09/19/2008 11/30/2015 Anxiety state, unspecified 12/12/200609/19 Cervicalgia 11/13/2006 06/28/2007 Sprain of neck 10/11/2006 06/28/2007 Depressive disorder, not elsewhere classified 09/19/2008 documented as of this encounter (statuses as of 05/18/2022) [facility] Narrative* Problem Noted Date Resolved Date Pain in joint, shoulder region 11/04/2013 0 11/30/2015 Rotator cuff (capsule) sprain 05/23/2012 Traumatic tear of right rotator cuff 05/03/2012 11/11/2013 Adjustment disorder with mixed anxiety and depre ssed mood 09/19/2008 11/30/2015 Anxiety state, unspecified 12/12/200609/19 Cervicalgia 11/13/2006 06/28/2007 Sprain of neck 10/11/2006 06/28/2007 Depressive disorder, not elsewhere classified 09/19/2008 documented as of this encounter (statuses as of 05/20/2022) [facility] Narrative* Problem Noted Date Resolved Date Pain in joint, shoulder region 11/04/2013 0 11/30/2015 Rotator cuff (capsule) sprain 05/23/2012 Traumatic tear of right rotator cuff 05/03/2012 11/11/2013 Adjustment disorder with mixed anxiety and depre ssed mood 09/19/2008 11/30/2015 Anxiety state, unspecified 12/12/200609/19 Cervicalgia 11/13/2006 06/28/2007 Sprain of neck 10/11/2006 06/28/2007 Depressive disorder, not elsewhere classified 09/19/2008 documented as of this encounter (statuses as of 05/21/2022) [facility] Narrative* Problem Noted Date Resolved Date Pain in joint, shoulder region 11/04/2013 0 11/30/2015 Rotator cuff (capsule) sprain 05/23/2012 Traumatic tear of right rotator cuff 05/03/2012 11/11/2013 Adjustment disorder with mixed anxiety and depre ssed mood 09/19/2008 11/30/2015 Anxiety state, unspecified 12/12/200609/19 Cervicalgia 11/13/2006 06/28/2007 Sprain of neck 10/11/2006 06/28/2007 Depressive disorder, not elsewhere classified 09/19/2008 documented as of this encounter (statuses as of 06/06/2022) [facility] Narrative* Problem Noted Date Resolved Date Pain in joint, shoulder region 11/04/2013 0 11/30/2015 Rotator cuff (capsule) sprain 05/23/2012 Traumatic tear of right rotator cuff 05/03/2012 11/11/2013 Adjustment disorder with mixed anxiety and depre ssed mood 09/19/2008 11/30/2015 Anxiety state, unspecified 12/12/200609/19 Cervicalgia 11/13/2006 06/28/2007 Sprain of neck 10/11/2006 06/28/2007 Depressive disorder, not elsewhere classified 09/19/2008 documented as of this encounter (statuses as of 06/08/2022) [facility] Narrative* Problem Noted Date Resolved Date Pain in joint, shoulder region 11/04/2013 0 11/30/2015 Rotator cuff (capsule) sprain 05/23/2012 Traumatic tear of right rotator cuff 05/03/2012 11/11/2013 Adjustment disorder with mixed anxiety and depre ssed mood 09/19/2008 11/30/2015 Anxiety state, unspecified 12/12/200609/19 Cervicalgia 11/13/2006 06/28/2007 Sprain of neck 10/11/2006 06/28/2007 Depressive disorder, not elsewhere classified 09/19/2008 documented as of this encounter (statuses as of 06/09/2022) [facility] Narrative* Problem Noted Date Resolved Date Pain in joint, shoulder region 11/04/2013 0 11/30/2015 Rotator cuff (capsule) sprain 05/23/2012 Traumatic tear of right rotator cuff 05/03/2012 11/11/2013 Adjustment disorder with mixed anxiety and depre ssed mood 09/19/2008 11/30/2015 Anxiety state, unspecified 12/12/200609/19 Cervicalgia 11/13/2006 06/28/2007 Sprain of neck 10/11/2006 06/28/2007 Depressive disorder, not elsewhere classified 09/19/2008 documented as of this encounter (statuses as of 06/21/2022) [facility]arrative* Problem Noted Date Resolved Date Pain in joint, shoulder region 11/04/2013 0 11/30/2015 Rotator cuff (capsule) sprain 05/23/2012 Traumatic tear of right rotator cuff 05/03/2012 11/11/2013 Adjustment disorder with mixed anxiety and depre ssed mood 09/19/2008 11/30/2015 Anxiety state, unspecified 12/12/200609/19 Cervicalgia 11/13/2006 06/28/2007 Sprain of neck 10/11/2006 06/28/2007 Depressive disorder, not elsewhere classified 09/19/2008 documented as of this encounter (statuses as of 06/22/2022) [facility]arrative* Problem Noted Date Resolved Date Pain in joint, shoulder region 11/04/2013 0 11/30/2015 Rotator cuff (capsule) sprain 05/23/2012 Traumatic tear of right rotator cuff 05/03/2012 11/11/2013 Adjustment disorder with mixed anxiety and depre ssed mood 09/19/2008 11/30/2015 Anxiety state, unspecified 12/12/200609/19 Cervicalgia 11/13/2006 06/28/2007 Sprain of neck 10/11/2006 06/28/2007 Depressive disorder, not elsewhere classified 09/19/2008 documented as of this encounter (statuses as of 07/20/2022) [facility]arrative* Problem Noted Date Resolved Date Pain in joint, shoulder region 11/04/2013 0 11/30/2015 Rotator cuff (capsule) sprain 05/23/2012 Traumatic tear of right rotator cuff 05/03/2012 11/11/2013 Adjustment disorder with mixed anxiety and depre ssed mood 09/19/2008 11/30/2015 Anxiety state, unspecified 12/12/200609/19 Cervicalgia 11/13/2006 06/28/2007 Sprain of neck 10/11/2006 06/28/2007 Depressive disorder, not elsewhere classified 09/19/2008 documented as of this encounter (statuses as of 07/20/2022) [facility]arrative* Problem Noted Date Resolved Date Pain in joint, shoulder region 11/04/2013 0 11/30/2015 Rotator cuff (capsule) sprain 05/23/2012 Traumatic tear of right rotator cuff 05/03/2012 11/11/2013 Adjustment disorder with mixed anxiety and depre ssed mood 09/19/2008 11/30/2015 Anxiety state, unspecified 12/12/200609/19 Cervicalgia 11/13/2006 06/28/2007 Sprain of neck 10/11/2006 06/28/2007 Depressive disorder, not elsewhere classified 09/19/2008 documented as of this encounter (statuses as of 07/21/2022) [facility]arrative* Problem Noted Date Resolved Date Pain in joint, shoulder region 11/04/2013 0 11/30/2015 Rotator cuff (capsule) sprain 05/23/2012 Traumatic tear of right rotator cuff 05/03/2012 11/11/2013 Adjustment disorder with mixed anxiety and depre ssed mood 09/19/2008 11/30/2015 Anxiety state, unspecified 12/12/200609/19 Cervicalgia 11/13/2006 06/28/2007 Sprain of neck 10/11/2006 06/28/2007 Depressive disorder, not elsewhere classified 09/19/2008 documented as of this encounter (statuses as of 07/22/2022) [facility]arrative* Problem Noted Date Resolved Date Pain in joint, shoulder region 11/04/2013 0 11/30/2015 Rotator cuff (capsule) sprain 05/23/2012 Traumatic tear of right rotator cuff 05/03/2012 11/11/2013 Adjustment disorder with mixed anxiety and depre ssed mood 09/19/2008 11/30/2015 Anxiety state, unspecified 12/12/200609/19 Cervicalgia 11/13/2006 06/28/2007 Sprain of neck 10/11/2006 06/28/2007 Depressive disorder, not elsewhere classified 09/19/2008 documented as of this encounter (statuses as of 08/05/2022) [facility]arrative* Problem Noted Date Resolved Date Pain in joint, shoulder region 11/04/2013 0 11/30/2015 Rotator cuff (capsule) sprain 05/23/2012 Traumatic tear of right rotator cuff 05/03/2012 11/11/2013 Adjustment disorder with mixed anxiety and depre ssed mood 09/19/2008 11/30/2015 Anxiety state, unspecified 12/12/200609/19 Cervicalgia 11/13/2006 06/28/2007 Sprain of neck 10/11/2006 06/28/2007 Depressive disorder, not elsewhere classified 09/19/2008 documented as of this encounter (statuses as of 08/10/2022) [facility]* Problem Noted Date Resolved Date Pain in joint, shoulder region 11/04/2013 0 11/30/2015 Rotator cuff (capsule) sprain 05/23/2012 Traumatic tear of right rotator cuff 05/03/2012 11/11/2013 Adjustment disorder with mixed anxiety and depre ssed mood 09/19/2008 11/30/2015 Anxiety state, unspecified 12/12/200609/19 Cervicalgia 11/13/2006 06/28/2007 Sprain of neck 10/11/2006 06/28/2007 Depressive disorder, not elsewhere classified 09/19/2008 documented as of this encounter (statuses as of 08/10/2022) [facility]* Problem Noted Date Resolved Date Pain in joint, shoulder region 11/04/2013 0 11/30/2015 Rotator cuff (capsule) sprain 05/23/2012 Traumatic tear of right rotator cuff 05/03/2012 11/11/2013 Adjustment disorder with mixed anxiety and depre ssed mood 09/19/2008 11/30/2015 Anxiety state, unspecified 12/12/200609/19 Cervicalgia 11/13/2006 06/28/2007 Sprain of neck 10/11/2006 06/28/2007 Depressive disorder, not elsewhere classified 09/19/2008 documented as of this encounter (statuses as of 09/07/2022) [facility]* Problem Noted Date Resolved Date Pain in joint, shoulder region 11/04/2013 0 11/30/2015 Rotator cuff (capsule) sprain 05/23/2012 Traumatic tear of right rotator cuff 05/03/2012 11/11/2013 Adjustment disorder with mixed anxiety and depre ssed mood 09/19/2008 11/30/2015 Anxiety state, unspecified 12/12/200609/19 Cervicalgia 11/13/2006 06/28/2007 Sprain of neck 10/11/2006 06/28/2007 Depressive disorder, not elsewhere classified 09/19/2008 documented as of this encounter (statuses as of 10/19/2022) [facility]* Problem Noted Date Diagnosed Date Resolved Date Pain in joint, shoulder region 11/04/2013 11/30/2015 Rotator cuff (capsule) sprain 05/23/2012 11/11/2013 Traumatic tear of right rotator cuff 05/03/2012 11/11/2013 Adjustment disorder with mix ed anxiety and depressed mood 09/19/2008 11/30/2015 Anxiety state, unspecified 12/12/2006 0 09/19/2008 Cervicalgia 11/13/2006 06/28/2007 Sprain of neck 10/11/2006 06/28/2007 Depressive disorder, not elsewhere classified 09/28/19 07 09/19/2008 documented as of this encounter (statuses as of 11/26/2022) [facility]arrative* Problem Noted Date Diagnosed Date Resolved Date Pain in joint, shoulder region 11/04/2013 11/30/2015 Rotator cuff (capsule) sprain 05/23/2012 11/11/2013 Traumatic tear of right rotator cuff 05/03/2012 11/11/2013 Adjustment disorder with mix ed anxiety and depressed mood 09/19/2008 11/30/2015 Anxiety state, unspecified 12/12/2006 0 09/19/2008 Cervicalgia 11/13/2006 06/28/2007 Sprain of neck 10/11/2006 06/28/2007 Depressive disorder, not elsewhere classified 09/28/19 09/19/2008 documented as of this encounter (statuses as of 12/26/2022) [facility]* Problem Noted Date Diagnosed Date Resolved Date Pain in joint, shoulder region 11/04/2013 11/30/2015 Rotator cuff (capsule) sprain 05/23/2012 11/11/2013 Traumatic tear of right rotator cuff 05/03/2012 11/11/2013 Adjustment disorder with mix ed anxiety and depressed mood 09/19/2008 11/30/2015 Anxiety state, unspecified 12/12/2006 0 09/19/2008 Cervicalgia 11/13/2006 06/28/2007 Sprain of neck 10/11/2006 06/28/2007 Depressive disorder, not elsewhere classified 09/28/19 07 09/19/2008 documented as of this encounter (statuses as of 12/26/2022) [facility]arrative* Problem Noted Date Diagnosed Date Resolved Date Pain in joint, shoulder region 11/04/2013 11/30/2015 Rotator cuff (capsule) sprain 05/23/2012 11/11/2013 Traumatic tear of right rotator cuff 05/03/2012 11/11/2013 Adjustment disorder with mix ed anxiety and depressed mood 09/19/2008 11/30/2015 Anxiety state, unspecified 12/12/2006 0 09/19/2008 Cervicalgia 11/13/2006 06/28/2007 Sprain of neck 10/11/2006 06/28/2007 Depressive disorder, not elsewhere classified 09/28/19 07 09/19/2008 documented as of this encounter (statuses as of 01/26/2023) [facility]* Problem Noted Date Diagnosed Date Resolved Date Pain in joint, shoulder region 11/04/2013 11/30/2015 Rotator cuff (capsule) sprain 05/23/2012 11/11/2013 Traumatic tear of right rotator cuff 05/03/2012 11/11/2013 Adjustment disorder with mix ed anxiety and depressed mood 09/19/2008 11/30/2015 Anxiety state, unspecified 12/12/2006 0 09/19/2008 Cervicalgia 11/13/2006 06/28/2007 Sprain of neck 10/11/2006 06/28/2007 Depressive disorder, not elsewhere classified 09/28/19 07 09/19/2008 documented as of this encounter (statuses as of 01/27/2023) [facility] History of Past illness Narrative* Problem Noted Date Diagnosed Date Resolved Date Pain in joint, shoulder region 11/04/2013 11/30/2015 Rotator cuff (capsule) sprain 05/23/2012 11/11/2013 Traumatic tear of right rotator cuff 05/03/2012 11/11/2013 Adjustment disorder with mix ed anxiety and depressed mood 09/19/2008 11/30/2015 Anxiety state, unspecified 12/12/2006 0 09/19/2008 Cervicalgia 11/13/2006 06/28/2007 Sprain of neck 10/11/2006 06/28/2007 Depressive disorder, not elsewhere classified 09/28/19 07 09/19/2008 documented as of this encounter (statuses as of 02/21/2023) [facility] History of Past illness Narrative* Problem Noted Date Diagnosed Date Resolved Date Pain in joint, shoulder region 11/04/2013 11/30/2015 Rotator cuff (capsule) sprain 05/23/2012 11/11/2013 Traumatic tear of right rotator cuff 05/03/2012 11/11/2013 Adjustment disorder with mix ed anxiety and depressed mood 09/19/2008 11/30/2015 Anxiety state, unspecified 12/12/2006 0 09/19/2008 Cervicalgia 11/13/2006 06/28/2007 Sprain of neck 10/11/2006 06/28/2007 Depressive disorder, not elsewhere classified 09/28/19 07 09/19/2008 documented as of this encounter (statuses as of 04/13/2023) [facility] History of Past illness Narrative* Problem Noted Date Diagnosed Date Resolved Date Pain in joint, shoulder region 11/04/2013 11/30/2015 Rotator cuff (capsule) sprain 05/23/2012 11/11/2013 Traumatic tear of right rotator cuff 05/03/2012 11/11/2013 Adjustment disorder with mix ed anxiety and depressed mood 09/19/2008 11/30/2015 Anxiety state, unspecified 12/12/2006 0 09/19/2008 Cervicalgia 11/13/2006 06/28/2007 Sprain of neck 10/11/2006 06/28/2007 Depressive disorder, not elsewhere classified 09/28/19 07 09/19/2008 documented as of this encounter (statuses as of 05/05/2023) [facility] History of Past illness Narrative* Problem Noted Date Diagnosed Date Resolved Date Pain in joint, shoulder region 11/04/2013 11/30/2015 Rotator cuff (capsule) sprain 05/23/2012 11/11/2013 Traumatic tear of right rotator cuff 05/03/2012 11/11/2013 Adjustment disorder with mix ed anxiety and depressed mood 09/19/2008 11/30/2015 Anxiety state, unspecified 12/12/2006 0 09/19/2008 Cervicalgia 11/13/2006 06/28/2007 Sprain of neck 10/11/2006 06/28/2007 Depressive disorder, not elsewhere classified 09/28/19 07 09/19/2008 documented as of this encounter (statuses as of 05/22/2023) [facility] History of Past illness Narrative* Problem Noted Date Diagnosed Date Resolved Date Pain in joint, shoulder region 11/04/2013 11/30/2015 Rotator cuff (capsule) sprain 05/23/2012 11/11/2013 Traumatic tear of right rotator cuff 05/03/2012 11/11/2013 Adjustment disorder with mix ed anxiety and depressed mood 09/19/2008 11/30/2015 Anxiety state, unspecified 12/12/2006 0 09/19/2008 Cervicalgia 11/13/2006 06/28/2007 Sprain of neck 10/11/2006 06/28/2007 Depressive disorder, not elsewhere classified 09/28/19 07 09/19/2008 documented as of this encounter (statuses as of 06/23/2023) [facility] Hypothyroidism, unspecified type [facility] Diagnosis Bilateral foot pain- Primary Pain in limb Bilateral foot pain Pain in limb Bilateral foot pain Pain in limb [facility] Concentration deficit Attention or concentration deficit [facility] Anxiety with depression Mood disorder (HCC) Unspecified episodic mood disorder [facility] Diagnosis Anxiety with depression- Primary Mood disorder (HCC) Unspecified episodic mood disorder Concentration deficit Attention or concentration deficit Hypothyroidism, unspecified type Vitamin B12 deficiency Other B-complex deficiencies Vitamin D deficiency Unspecified vitamin D deficiency Fatigue, unspecified type Dyslipidemia Other and unspecified hyperlipidemia [facility] Diagnosis Encounter for screening mammogram for breast cancer [facility] Diagnosis Concentration deficit Attention or concentration deficit [facility] Diagnosis Situational insomnia Transient disorder of initiating or maintaining sleep Anxiety with depression [facility] Diagnosis Concentration deficit Attention or concentration deficit [facility] Diagnosis Age-related cataract of both eyes, unspecified age-related cataract type- Primary Double vision Diplopia Vitamin B12 deficiency Other B-complex deficiencies Vitamin D deficiency Unspecified vitamin D deficiency Hypothyroidism, unspecified type Dyslipidemia Other and unspecified hyperlipidemia Hyperglycemia Other abnormal glucose Anxiety with depression [facility] Diagnosis Concentration deficit Attention or concentration deficit [facility] Diagnosis Vitamin B12 deficiency- Primary Other B-complex deficiencies Vitamin D deficiency Unspecified vitamin D deficiency Dyslipidemia Other and unspecified hyperlipidemia Hypothyroidism, unspecified type Elevated alkaline phosphatase level Other nonspecific abnormal serum enzyme levels Chronic right shoulder pain Pain in joint, shoulder region Chronic pain of right ankle [facility] noteNo assessment information availableWSouthwest [facility] Work Phone: Evaluation note* Diagnosis Elevated alkaline phosphatase level- Primary Other nonspecific abnormal serum enzyme levels [facility] Diagnosis Vasovagal symptom- Primary Elevated alkaline phosphatase level Other nonspecific abnormal serum enzyme levels Hypothyroidism, unspecified type Hyperglycemia Other abnormal glucose Mood disorder (HCC) Unspecified episodic mood disorder Anxiety with depression 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), and cerebral infarction without residual deficits Occlusion and stenosis of right vertebral artery Occlusion and stenosis of vertebral artery without mention of cerebral infarction Stenosis of left vertebral artery [facility]* Diagnosis Hypothyroidism, unspecified type [facility] Diagnosis Flu-like symptoms- Primary Other general symptoms Elevated alkaline phosphatase level Other nonspecific abnormal serum enzyme levels [facility] Diagnosis Right ankle swelling- Primary Effusion of ankle and foot joint Encounter for screening for osteoporosis Special screening for osteoporosis Encounter for screening mammogram for malignant neoplasm of breast Other screening mammogram [facility] Diagnosis Near syncope- Primary Syncope and collapse [facility] Diagnosis Concentration deficit Attention or concentration deficit [facility]* Diagnosis Dyslipidemia- Primary Other and unspecified hyperlipidemia Hair thinning Alopecia, unspecified Fatigue, unspecified type Tendinitis of right ankle Tenosynovitis of foot and ankle SOB (shortness of breath) Shortness of breath Hypothyroidism, unspecified type Screening for colon cancer Special screening for malignant neoplasms, colon Concentration deficit Attention or concentration deficit Anxiety with depression [facility]* Diagnosis SOB (shortness of breath) Shortness of breath [facility]* Diagnosis SOB (shortness of breath) Shortness of breath [facility]* Diagnosis Dermatitis contact- Primary Hypothyroidism, unspecified type [facility] Diagnosis Elevated ferritin- Primary Other abnormal blood chemistry Rash and nonspecific skin eruption Rash and other nonspecific skin eruption Elevated alkaline phosphatase level Other nonspecific abnormal serum enzyme levels Dermatitis contact Hypothyroidism, unspecified type Dyslipidemia Other and unspecified hyperlipidemia Mood disorder (HCC) Unspecified episodic mood disorder Fatigue, unspecified type Hyperglycemia Other abnormal glucose [facility]* Diagnosis Adjustment insomnia- Primary Transient disorder of initiating or maintaining sleep Anxiety with depression 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), and cerebral infarction without residual deficits [facility]* Diagnosis Concentration deficit Attention or concentration deficit [facility] Diagnosis Situational insomnia Transient disorder of initiating or maintaining sleep Anxiety with depression [facility]* Diagnosis Sore throat- Primary Acute pharyngitis Influenza-like illness Influenza with other respiratory manifestations [facility]* Diagnosis Concentration deficit Attention or concentration deficit [facility]* Diagnosis Encounter for screening mammogram for breast cancer documented in this encounter [facility] for referral (narrative)* Diagnostic Procedure Only (Routine) - Pending Review Specialty Diagnoses / Procedures Referred By Cassie payne Referred To Contact [facility] Diagnoses Encounter for screening mammogram for breast cancer Procedures MANDO SCREENING SCREENING MAMMOGRAPHY BI 2-VIEW BREAST INC CAD Shin Arias L, DO [address] [place] [address] [facility] [address] [place] [address] Referral ID Status Reason Start Date Expiration Date Visits Requested Visits Authorized [id number] Pending Review Auto-Generat ed Referral 11/10/2021 12/10/2022 [address] [facility] for referral (narrative)* Diagnostic Procedure Only (Routine) - Pending Review Specialty Diagnoses / Procedures Referred By Contac t Referred To Contact US IMAGING Diagnoses Elevated alkaline phosphatase level Procedures US ABD RT UPPER QUADRANT US ABDOMINAL REAL TIME W/IMAGE LIMITED Shin Arias DO [address] [place] [address] Us Imaging Referral ID Status Reason Start Date Expiration Date Visits Requested Visits Authorized [id number] Pending Review Auto-Generat ed Referral 06/02/2023 [address] [facility] for referral (narrative)* Diagnostic Procedure Only (Routine) - Closed Specialty Diagnoses / Procedures Referred By Kiaraac t Referred To Contact XR IMAGING Diagnoses Right ankle swelling Procedures XR ANKLE GENERAL 3V AP/LAT/OBL RIGHT RADEX ANKLE COMPLETE MINIMUM 3 VIEWS Jossy Gustafson, EDWIN[employer] OFFICER [address] [place] [address] Xr Imaging Referral ID Status Reason Start Date Expiration Date V isits Requested Visits Authorized [id number] Closed Auto-Generate d Referral 06/06/2022 07/06/2023 1 1 * Diagnostic Procedure Only (Routine) - Pending Review Specialty Diagnoses / Procedures Referred By Contac t Referred To Contact [facility] Diagnoses Encounter for screening mammogram for malignant neoplasm of breast Procedures MANDO SCREENING SCREENING MAMMOGRAPHY BI 2-VIEW BREAST INC CAD Jossy Gustafson, 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.[employer] OFFICER [address] [place] [address] [facility] [address] [place] [address] Referral ID Status Reason Start Date Expiration Date Visits Requested Visits Authorized [id number] Pending Review Auto-Generat ed Referral 06/06/2022 07/06/2023 [address] [facility] for referral (narrative)* Outpatient Procedure (Routine) - Pending Review Specialty Diagnoses / Procedures Referred By Contac t Referred To Contact [facility] Diagnoses Near syncope Procedures STRESS ECHO TREADMILL ECHO TTHRC R-T 2D W/WO M-MODE COMPLETE REST&ST Alivia Leyva PA-C [address] [place] [address] [facility] [address] [address] Referral ID Status Reason Start Date Expiration Date Visits Requested Visits Authorized [id number] Pending Review Auto-Generat ed Referral 05/19/2022 05/19/2023 [address] [facility] for referral (narrative)* Outpatient Procedure (Routine) - Authorized Specialty Diagnoses / Procedures Referred By Contac t Referred To Contact [facility] Diagnoses SOB (shortness of breath) Procedures LUNG VOLUMES Shin Arias DO [address] [place] [address] [facility] [address] [place] [id number] Referral ID Status Reason Start Date Expiration Date Visits Requested Visits Authorized [id number] Authorized Auto-Generat ed Referral 07/19/2022 08/18/2023 1 1 * Outpatient Procedure (Routine) - Authorized Specialty Diagnoses / Procedures Referred By Contac t Referred To Contact [facility] Diagnoses SOB (shortness of breath) Procedures SPIROMETRY - BASELINE AND POST DILATOR BRNCDILAT RSPSE SPMTRY PRE&POST-BRNCDILAT ADMN Shin Arias DO [address] [place] [address] [facility] [address] [place] [address] Referral ID Status Reason Start Date Expiration Date Visits Requested Visits Authorized [id number] Authorized Auto-Generat ed Referral 07/19/2022 08/18/2023 [facility] Diagnostic Procedure Only (Routine) - Pending Review Specialty Diagnoses / Procedures Referred By Cassie t Referred To Contact [facility] Diagnoses Encounter for screening mammogram for breast cancer Procedures MANDO SCREENING SCREENING MAMMOGRAPHY BI 2-VIEW BREAST INC CAD Shin Arias, [address] [place] [address] [facility] [address] [place] [address] Referral ID Status Reason Start Date Expiration Date Visits Requested Visits Authorized [id number] Pending Review Auto-Generat ed Referral 05/17/2023 06/15/2024 1 1 [facility] Summary Purpose Family History No Family History Records Found Relationship Condition Age at Onset Recorded Date/T claus father Malignant neoplasm Unknown mother Hypertension Unknown grandfather Cardiac disease Unknown sister Malignant neoplasm Unknown Advance Directives No Advanced Directives Records FoundDocuments on File Type Date Recorded Patient Seo Team Lead Expl anation Advance Directive(s) Latest Code Status on File Code Status Date Activated Date Inactivated Comments Full Code 09/30/2018 9:26 PM Would like her daughterLeah to be her HCPOA and make decisions on her behalf if she is unable to make them by herself Documents on File Type Date Recorded Patient Seo Team Lead Expl anation Advance Directive(s) Reason for Referral Specialty Diagnoses / Procedures Referred By Cassie payne Referred To Contact Diagnoses Bilateral foot pain Procedures XR FOOT RIGHT 3 VIEWS [facility], Bairon Lewis DPM [address] [place] [address] [place] [address] Referral ID Status Reason Start Date Expiration Date V isits Requested Visits Authorized [id number] New Request 07/29/2021 08/23/2022 1 1 Specialty Diagnoses / Procedures Referred By Contac t Referred To Contact Diagnoses Bilateral foot pain Procedures XR FOOT LEFT 3 VIEWS Kirsty, Bairon Lewis, DPM [address] [place] [place] [address] Referral ID Status Reason Start Date Expiration Date V isits Requested Visits Authorized [id number] New Request 07/29/2021 08/23/2022 1 1 Specialty Diagnoses / Procedures Referred By Contac t Referred To Contact Ophthalmology Diagnoses Age-related cataract of both eyes, unspecified age-related cataract type Double vision Procedures CONSULT TO OPHTHALMOLOGY OFFICE/OUTPATIENT NEW HIGH MDM 60-74 MINUTES Shin Arias, DO [address] [place] [address] Referral ID Status Reason Start Date Expiration Date Visits Requested Visits Authorized [id number] Pending Review PCP Requested Referral 01/21/2022 01/21/2023 1 1 Health Concerns Infection Onset Date Last Indicated Resolved Time COVID-19 Confirmed 01/25/2023 01/25/2023 Additional Source Comments INFORMATION SOURCE (unrecogn ized section and content) DATE CREATED AUTHOR 11/02/2017 [employer] [facility] DATE CREATED AUTHOR AUTHOR'S ORGANIZ ATION 08/21/2021 [facility] DATE CREATED AUTHOR AUTHOR'S ORGANIZ ATION 06/12/2023 [facility] DATE CREATED AUTHOR AUTHOR'S ORGANIZ ATION 07/04/2023 [facility] Source Comments (unrecognize d section and content) In the event this informatio n is protected by the Federal Confidentiality of Alcohol and Drug Abuse Patient Records regulations: The Federal rules restrict any use of the information to criminally investigate or prosecute any alcohol or drug abuse patient.[facility] the event this information is protected by the Federal Confidentiality of Alcohol and Drug Abuse Patient Records regulations: The Federal rules restrict any use of the information to criminally investigate or prosecute any alcohol or drug abuse patient.[facility] the event this information is protected by the Federal Confidentiality of Alcohol and Drug Abuse Patient Records regulations: The Federal rules restrict any use of the information to criminally investigate or prosecute any alcohol or drug abuse patient.[facility] the event this information is protected by the Federal Confidentiality of Alcohol and Drug Abuse Patient Records regulations: The Federal rules restrict any use of the information to criminally investigate or prosecute any alcohol or drug abuse patient.[facility] the event this information is protected by the Federal Confidentiality of Alcohol and Drug Abuse Patient Records regulations: The Federal rules restrict any use of the information to criminally investigate or prosecute any alcohol or drug abuse patient.[facility] the event this information is protected by the Federal Confidentiality of Alcohol and Drug Abuse Patient Records regulations: The Federal rules restrict any use of the information to criminally investigate or prosecute any alcohol or drug abuse patient.[facility] the event this information is protected by the Federal Confidentiality of Alcohol and Drug Abuse Patient Records regulations: The Federal rules restrict any use of the information to criminally investigate or prosecute any alcohol or drug abuse patient.[facility] the event this information is protected by the Federal Confidentiality of Alcohol and Drug Abuse Patient Records regulations: The Federal rules restrict any use of the information to criminally investigate or prosecute any alcohol or drug abuse patient.[facility] the event this information is protected by the Federal Confidentiality of Alcohol and Drug Abuse Patient Records regulations: The Federal rules restrict any use of the information to criminally investigate or prosecute any alcohol or drug abuse patient.[facility] the event this information is protected by the Federal Confidentiality of Alcohol and Drug Abuse Patient Records regulations: The Federal rules restrict any use of the information to criminally investigate or prosecute any alcohol or drug abuse patient.[facility] the event this information is protected by the Federal Confidentiality of Alcohol and Drug Abuse Patient Records regulations: The Federal rules restrict any use of the information to criminally investigate or prosecute any alcohol or drug abuse patient.[facility] the event this information is protected by the Federal Confidentiality of Alcohol and Drug Abuse Patient Records regulations: The Federal rules restrict any use of the information to criminally investigate or prosecute any alcohol or drug abuse patient.[facility] the event this information is protected by the Federal Confidentiality of Alcohol and Drug Abuse Patient Records regulations: The Federal rules restrict any use of the information to criminally investigate or prosecute any alcohol or drug abuse patient.[facility] the event this information is protected by the Federal Confidentiality of Alcohol and Drug Abuse Patient Records regulations: The Federal rules restrict any use of the information to criminally investigate or prosecute any alcohol or drug abuse patient.[facility] the event this information is protected by the Federal Confidentiality of Alcohol and Drug Abuse Patient Records regulations: The Federal rules restrict any use of the information to criminally investigate or prosecute any alcohol or drug abuse patient.[facility] the event this information is protected by the Federal Confidentiality of Alcohol and Drug Abuse Patient Records regulations: The Federal rules restrict any use of the information to criminally investigate or prosecute any alcohol or drug abuse patient.[facility] the event this information is protected by the Federal Confidentiality of Alcohol and Drug Abuse Patient Records regulations: The Federal rules restrict any use of the information to criminally investigate or prosecute any alcohol or drug abuse patient.[facility] the event this information is protected by the Federal Confidentiality of Alcohol and Drug Abuse Patient Records regulations: The Federal rules restrict any use of the information to criminally investigate or prosecute any alcohol or drug abuse patient.[facility] the event this information is protected by the Federal Confidentiality of Alcohol and Drug Abuse Patient Records regulations: The Federal rules restrict any use of the information to criminally investigate or prosecute any alcohol or drug abuse patient.[facility] the event this information is protected by the Federal Confidentiality of Alcohol and Drug Abuse Patient Records regulations: The Federal rules restrict any use of the information to criminally investigate or prosecute any alcohol or drug abuse patient.[facility] the event this information is protected by the Federal Confidentiality of Alcohol and Drug Abuse Patient Records regulations: The Federal rules restrict any use of the information to criminally investigate or prosecute any alcohol or drug abuse patient.[facility] the event this information is protected by the Federal Confidentiality of Alcohol and Drug Abuse Patient Records regulations: The Federal rules restrict any use of the information to criminally investigate or prosecute any alcohol or drug abuse patient.[facility] the event this information is protected by the Federal Confidentiality of Alcohol and Drug Abuse Patient Records regulations: The Federal rules restrict any use of the information to criminally investigate or prosecute any alcohol or drug abuse patient.[facility] the event this information is protected by the Federal Confidentiality of Alcohol and Drug Abuse Patient Records regulations: The Federal rules restrict any use of the information to criminally investigate or prosecute any alcohol or drug abuse patient.[facility] the event this information is protected by the Federal Confidentiality of Alcohol and Drug Abuse Patient Records regulations: The Federal rules restrict any use of the information to criminally investigate or prosecute any alcohol or drug abuse patient.[facility] HospitalIn the event this information is protected by the Federal Confidentiality of Alcohol and Drug Abuse Patient Records regulations: The Federal rules restrict any use of the information to criminally investigate or prosecute any alcohol or drug abuse patient.[facility] HospitalIn the event this information is protected by the Federal Confidentiality of Alcohol and Drug Abuse Patient Records regulations: The Federal rules restrict any use of the information to criminally investigate or prosecute any alcohol or drug abuse patient.[facility] HospitalIn the event this information is protected by the Federal Confidentiality of Alcohol and Drug Abuse Patient Records regulations: The Federal rules restrict any use of the information to criminally investigate or prosecute any alcohol or drug abuse patient.[facility] HospitalIn the event this information is protected by the Federal Confidentiality of Alcohol and Drug Abuse Patient Records regulations: The Federal rules restrict any use of the information to criminally investigate or prosecute any alcohol or drug abuse patient.[facility] HospitalIn the event this information is protected by the Federal Confidentiality of Alcohol and Drug Abuse Patient Records regulations: The Federal rules restrict any use of the information to criminally investigate or prosecute any alcohol or drug abuse patient.[facility] HospitalIn the event this information is protected by the Federal Confidentiality of Alcohol and Drug Abuse Patient Records regulations: The Federal rules restrict any use of the information to criminally investigate or prosecute any alcohol or drug abuse patient.[facility] HospitalIn the event this information is protected by the Federal Confidentiality of Alcohol and Drug Abuse Patient Records regulations: The Federal rules restrict any use of the information to criminally investigate or prosecute any alcohol or drug abuse patient.[facility] HospitalIn the event this information is protected by the Federal Confidentiality of Alcohol and Drug Abuse Patient Records regulations: The Federal rules restrict any use of the information to criminally investigate or prosecute any alcohol or drug abuse patient.[facility] HospitalIn the event this information is protected by the Federal Confidentiality of Alcohol and Drug Abuse Patient Records regulations: The Federal rules restrict any use of the information to criminally investigate or prosecute any alcohol or drug abuse patient.[facility] HospitalIn the event this information is protected by the Federal Confidentiality of Alcohol and Drug Abuse Patient Records regulations: The Federal rules restrict any use of the information to criminally investigate or prosecute any alcohol or drug abuse patient.[facility] HospitalIn the event this information is protected by the Federal Confidentiality of Alcohol and Drug Abuse Patient Records regulations: The Federal rules restrict any use of the information to criminally investigate or prosecute any alcohol or drug abuse patient.[facility] HospitalIn the event this information is protected by the Federal Confidentiality of Alcohol and Drug Abuse Patient Records regulations: The Federal rules restrict any use of the information to criminally investigate or prosecute any alcohol or drug abuse patient.[facility] HospitalIn the event this information is protected by the Federal Confidentiality of Alcohol and Drug Abuse Patient Records regulations: The Federal rules restrict any use of the information to criminally investigate or prosecute any alcohol or drug abuse patient.[facility] HospitalIn the event this information is protected by the Federal Confidentiality of Alcohol and Drug Abuse Patient Records regulations: The Federal rules restrict any use of the information to criminally investigate or prosecute any alcohol or drug abuse patient.[facility] HospitalIn the event this information is protected by the Federal Confidentiality of Alcohol and Drug Abuse Patient Records regulations: The Federal rules restrict any use of the information to criminally investigate or prosecute any alcohol or drug abuse patient.[facility] HospitalIn the event this information is protected by the [facility] Confidentiality of Alcohol and Drug Abuse Patient Records regulations: The Federal rules restrict any use of the information to criminally investigate or prosecute any alcohol or drug abuse patient.[facility] HospitalIn the event this information is protected by the Federal Confidentiality of Alcohol and Drug Abuse Patient Records regulations: The Federal rules restrict any use of the information to criminally investigate or prosecute any alcohol or drug abuse patient.[facility] Care Teams (unrecognized sec tion and content) Quality Head Relationship Specialty Start Date End Date Shin Arias, DO [address] [place] [address] PCP - General Family Practice 10/28/14 Quality Head Relationship Specialty Start Date End Date Shin Arias DO PCP - General Family Medicine 10/03/18 Quality Head Relationship Specialty Start Date End Date Shin Arias, DO [address] [place] [address] PCP - General Family Practice 10/28/14 Quality Head Relationship Specialty Start Date End Date Shin Arias, DO [address] [place] [address] PCP - General Family Practice 10/28/14 Quality Head Relationship Specialty Start Date End Date Shin Arias, DO [address] [place] [address] PCP - General Family Practice 10/28/14 Quality Head Relationship Specialty Start Date End Date Shin Arias, DO [address] [facility] [place] [address] PCP - General Family Practice 10/28/14 Quality Head Relationship Specialty Start Date End Date Shin Arias, DO [address] [facility] [place] [address] PCP - General Family Practice 10/28/14 Quality Head Relationship Specialty Start Date End Date Shin Arias, DO [address] [facility] [place] [address] PCP - General Family Practice 10/28/14 Quality Head Relationship Specialty Start Date End Date Shin Arias, DO [address] [facility] [place] [address] PCP - General Family Practice 10/28/14 Quality Head Relationship Specialty Start Date End Date Shin Airas, DO [address] [facility] [place] [address] PCP - General Family Medicine 10/28/14 Quality Head Relationship Specialty Start Date End Date Shin Arias, DO [address] [place] [address] PCP - General Family Medicine 10/28/14 Quality Head Relationship Specialty Start Date End Date Shin Arias, DO [address] [place] [address] PCP - General Family Medicine 10/28/14 Quality Head Relationship Specialty Start Date End Date Shin Arias, DO [address] [place] [address] PCP - General Family Medicine 10/28/14 Quality Head Relationship Specialty Start Date End Date Shin Arias, DO [address] [place] [address] PCP - General Family Medicine 10/28/14 Quality Head Relationship Specialty Start Date End Date Shin Arias, DO [address] [place] [address] PCP - General Family Medicine 10/28/14 Quality Head Relationship Specialty Start Date End Date Shin Arias, DO [address] [place] [address] PCP - General Family Medicine 10/28/14 Quality Head Relationship Specialty Start Date End Date Shin Arias, DO [address] [place] [address] PCP - General Family Medicine 10/28/14 Quality Head Relationship Specialty Start Date End Date Shin Arias, DO [address] [place] [address] PCP - General Family Medicine 10/28/14 Quality Head Relationship Specialty Start Date End Date Shin Arias, DO [address] [place] [address] PCP - General Family Medicine 10/28/14 Quality Head Relationship Specialty Start Date End Date Shin Arias, DO [address] [place] [address] PCP - General Family Medicine 10/28/14 Quality Head Relationship Specialty Start Date End Date Shin Arias, DO [address] [place] [address] PCP - General Family Medicine 10/28/14 Quality Head Relationship Specialty Start Date End Date Shin Arias, DO [address] [facility] [place] [address] PCP - General Family Medicine 10/28/14 Quality Head Relationship Specialty Start Date End Date Shin Arias DO [address] [facility] [place] [address] PCP - General Family Medicine 10/28/14 Quality Head Relationship Specialty Start Date End Date Shin Arias, DO [address] [facility] [place] [address] PCP - General Family Medicine 10/28/14 Quality Head Relationship Specialty Start Date End Date Shin Arias DO [address] [facility] [place] [address] PCP - General Family Medicine 10/28/14 Quality Head Relationship Specialty Start Date End Date Shin Arias DO [address] [facility] [place] [address] PCP - General Family Medicine 10/28/14 Quality Head Relationship Specialty Start Date End Date Shin Arias DO [address] [facility] [place] [address] PCP - General Family Medicine 10/28/14 Quality Head Relationship Specialty Start Date End Date Shin Arias DO [address] [facility] [place] [address] PCP - General Family Medicine 10/28/14 Quality Head Relationship Specialty Start Date End Date Shin Arias DO [address] [facility] [place] [address] PCP - General Family Medicine 10/28/14 Quality Head Relationship Specialty Start Date End Date Shin Arias DO [address] [place], [place] [address] PCP - General Family Medicine 10/28/14 Quality Head Relationship Specialty Start Date End Date Shin Arias DO [address] [place], [place] [address] PCP - General Family Medicine 10/28/14 Quality Head Relationship Specialty Start Date End Date Shin Arias DO [address] [place], [place] [address] PCP - General Family Medicine 10/28/14 Reason for Visit (unrecogniz ed section and content) Reason Comments Pain C/o bunion on rt chito t, hx of lft foot bunion sx in 2011 and had a bad time with it, has issues with it still, 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, has numbness in the toes and has pn in the foot and up into the ankle, also has a hammertoe next to it, tried one remedies w/ some pn relief, has orthotics and wears good shoes w/ arch support Pain Specialty Diagnoses / Procedures Referred By Cassie payne Referred To Contact Podiatry Diagnoses Foot pain, right Acquired deformity of right foot Shin Arias, DO [address] [place] [address] Bairon Lofton DPM [address] [facility] [address] [place] [address] Referral ID Status Reason Start Date Expiration Date V isits Requested Visits Authorized [id number] New Request 07/22/2021 08/16/2022 1 1 Reason Onset Date Comments Refill Request 09/06/2021 Reason Comments Refill Request Reason Comments Medication Problem Reason Comments Follow Up 3 months Reason Onset Date Comments Refill Request 11/25/2021 Reason Onset Date Comments Refill Request 01/19/2022 Reason Comments Yearly Exam Reason Onset Date Comments Refill Request 03/15/2022 Reason Comments F/U 3 Month Reason Comments Results Appointment Reason Onset Date Comments Refill Request 05/10/2022 Reason Comments Illness Weak, tired, nausea, had an episode of a wave of feeling hot from toes to head this morning. Also has a headache. Reason Onset Date Comments Refill Request 05/17/2022 Reason Comments Acute Visit Nausea, weak, fever tmax 101.3 3 days ago Reason Comments rt ankle swelling Been bothersome for a while now worse swelling and bothersome Reason Comments Results Reason Comments requesting orders for stress test Reason Onset Date Comments Refill Request 06/17/2022 Reason Onset Date Comments Refill Request 06/21/2022 Reason Comments F/U 3 Month Reason Comments Spirometry Specialty Diagnoses / Procedures Referred By Contac t Referred To Contact [facility] Diagnoses SOB (shortness of breath) Procedures SPIROMETRY - BASELINE AND POST DILATOR BRNCDILAT RSPSE SPMTRY PRE&POST-BRNCDILAT ADMN Shin Arias L, DO [address] [place] [address] Res[facility] [place] [id number] Referral ID Status Reason Start Date Expiration Date V isits Requested Visits Authorized [id number] Closed Auto-Generate d Referral 07/19/2022 08/18/2023 1 1 Specialty Diagnoses / Procedures Referred By Contac t Referred To Contact [facility] Diagnoses SOB (shortness of breath) Procedures LUNG VOLUMES Shin Arias L, DO [address] [place] [address] [facility] [place] [id number] Referral ID Status Reason Start Date Expiration Date V isits Requested Visits Authorized [id number] Closed Auto-Generate d Referral 07/19/2022 08/18/2023 1 1 Reason Comments Medication Question Reason Comments Appointment Reason Comments Derm Problem rash hands and feet x 1 week Reason Comments Sleep Problem Trouble staying asle ep for the past several weeks. Reason Onset Date Comments Refill Request 12/24/2022 Reason Comments Follow Up 4 week f/u Reason Comments Sore Throat head congestion x 4 days Reason Onset Date Comments Refill Request 02/16/2023 Reason Onset Date Comments Refill Request 04/11/2023 Goals (unrecognized section and content) Goals may be documented in a n alternate section FOR RECORDS PERTAINING TO PATIENTS WHO ARE OR HAVE BEEN ENROLLED IN A CHEMICAL DEPENDENCY/SUBSTANCEABUSE PROGRAM, SOME INFORMATION MAY BE OMITTED. This clinical summary was aggregated from multiple sources. Caution should be exercised in using it in the provision of clinical care. This summary normalizes information from multiple sources, and as a consequence, information in this document may materially change the coding, format and clinical context of patient data. In addition, data may be omitted in some cases. CLINICAL DECISIONS SHOULD BE BASED ON THE PRIMARY CLINICAL RECORDS. [email or web address]. provides no warranty or guarantee of the accuracy or completeness of information in this document.
== END 2023-07-10 10:06 | disposition home or self-care (01) ==
PROVIDERS: Visit Provider Podiatrist Foot & Ankle Surgery
DX: M20.11 Hallux valgus (acquired), right foot (principal); M20.21 Hallux rigidus, right foot

== ENCOUNTER 2023-07-24 06:14 | Day surgery (SDC) | payer MEDICARE, SELFPAY ==
[2023-07-10 10:45] VITALS: BP 124/69; PULSE 56; RESP 18; TEMP 36.4; O2SAT 99; BMI 21.3
[2023-07-24] VITALS (11 sets, daily range): BP systolic 114–157; BP diastolic 54–78; PULSE 48–63; RESP 12–17; TEMP 36.4–36.6; O2SAT 96–100; BMI 21.2
--- NOTE | 2023-07-24 | FL_ITS ---
[place] [id number] Patient Name: HENRY BROCK MRN: [id number] date: 1955 Sex: F Assigned Patient Location: [facility] Current Patient Location: [facility] Accession/Order Number: [id number] Exam Date: 07/24/2023 07:45 Report Date: 07/25/2023 08:12 At the request of: SIERRA AUGUSTINE Procedure: FL fluoroscopy <1hr NON-READ EXAM: FL fluoroscopy <1hr NON-READ HISTORY: TECHNIQUE: FINDINGS: Please see Operative Report. Electronically authenticated by: RADIOLOGIST NO Date: 07/25/2023 08:12
--- OUTSIDE RECORDS SUMMARY | 2023-07-24 06:21 | XMS_ITS | CCD ---
Author Name Unknown Address [address] [place] [address] Organization [facility] Care Team Providers Care Daycare Director Name Role Phone SHIN SCHWARTZ Unavailable Unavailable [...] Unavailable ATWAY, SAID A Attending Unavailable Arias Shin NORMAN Primary Care Provider Arias Shin NORMAN Primary Care Provider Arias Shin NORMAN Primary Care Provider SHIN ARIAS Attending Unavailable ARIAS, SHIN Mckeon Primary Care Unavailable ARIAS, SHIN Mckeon Primary Care Unavailable ARIAS, SHIN L Attending Unavailable ARIASSHIN Primary Care Unavailable ARIASSHIN AREVALO L Referring Unavailable ARIASSHIN Primary Care Unavailable ARIAS, SHIN L Referring Unavailable ARIAS, SHIN Mckeon Primary Care Unavailable ARIAS, SHIN L Referring Unavailable ARIAS, SHIN L Primary Care Unavailable ARIAS, SHIN Mckeon Primary Care Unavailable [...] SHIN ARIAS L Primary Care Unavailable Shin Arisa Primary Care Unavailable Mata Shilo Attending Unavailable Shin Airas Primary Care Unavailable Shin Arias Attending Unavailable Shin Arias Referring Unavailable Allergies Allergy Classification Reported Allergen(s) Allergy Type Date of Onset Reaction(s) Facility (20 sources) morphine; Translations: [MORPHINE SULFATE] Drug Allergy 5 Itching [facility] Repository (20 sources) sulfamethoxazole; Translations: [SULFAMETHOXAZOLE ] Drug Allergy 5 Hives [facility] Repository (20 sources) tea tree oil; Translations: [TEA TREE OIL] Drug Allergy 0 Rash [facility] Repository (2 sources) Morphine Drug Allergy 5 Itching [facility] (1 source) Trimethoprim Drug Allergy 0 unknown [facility] Work Phone: (1 source) tea tree Allergy to substance 0 unknown [facility] Work Phone: (1 source) Morphine Drug Allergy 0 [facility] Repository (1 source) Trimethoprim Drug Allergy 0 [facility] Repository (1 source) tea tree Drug allergy (disorder) 0 [facility] Repository Medications Current Medications Medication Drug Class(es) Dates Sig (Normalized) Sig (Original) amphetamine aspartate 2.5 mg / amphetamine sulfate 2.5 mg / dextroamphetamine saccharate 2.5 mg / dextroamphetamine sulfate 2.5 mg oral tablet (20 sources) Central Nervous System Stimulant Start: 05-18-2023 End: 10-12-2023 take 1 tablet by mouth once daily dextroamphetamine- amphetamine (ADDERALL) 10 mg tablet Indications: Concentration deficit Take 0.5-1 tablets by mouth once daily for 90 days. 90 tablet 0 07/14/2023 10/12/2023 Active Start: 02-20-2023 End: 05-12-2023 take 1 [...] y mouth once daily for 30 days. Take 0.5-1 tablets b y mouth once daily for 90 days. Ca-D3-Mag Be-Tqpb-Wyg-Ravi-Bor (Calcium 600-D3 Plus (Mag-Zinc)) 600 mg calcium- 800 unit-50 mg tablet (1 source) Start: 0 Ca-D3-Mag Fd-Zxpy-Qlw-Ravi-Bor (Calcium 600-D3 Plus (Mag-Zinc)) 600 mg calcium- [...] 12:00am Start: 08-15-2017 take 1 capsule by [facility] once daily Cholecalciferol, Vitamin D3, 5,000 unit cap Take 1 capsule by mouth once daily. 90 capsule 3 08/15/2017 Active Comment on above: Take 1 capsule by [facility] once daily. docusate sodium 100 mg oral [...] (PF) 0.9% 10 mL injection (DEFINITY) sennosides, care home 8.6 mg oral tablet (1 source) Start: [...] on above: Take 4 tablets by mo [facility] one time only for 1 dose. Take [...] Comment on above: Take 1 tablet by [facility] twice daily for 30 days. Take 1 tablet by [facility] twice daily for 14 days. Take 1 tablet by [facility] twice daily for 30 days. Do not start before January 23, 2021. diazePAM 2 mg oral tablet (1 source) Benzodiazepine Start: 09-29-2018 End: 10-02-2018 take 2 mg by mouth three times daily Diazepam Discontinued 2 MG PO THREE TIMES A DAY 10 September 28, 2018 11:00pm October 01, 2018 11:06pm FLUoxetine 10 mg oral capsule (20 sources) Serotonin Reuptake Inhibitor Start: 02-08-2023 take 1 capsule by mouth once daily FLUoxetine (PROZAC) 10 mg capsule Indications: Adjustment insomnia , Anxiety with depression Take 1 capsule by mouth once daily. 90 capsule 1 02/08/2023 Active Start: 11-25-2022 take 1 capsule by [facility] once daily FLUoxetine (PROZAC) 10 [...] 11:00pm Start: 10-04-2018 take 3 capsules by [facility] once daily fluoxetine 10 MG Cap capsule Take 3 capsules by mouth daily. 0 10/04/2018 Active Start: 08-02-2018 End: 10-11-2018 Fluoxetine (Prozac) 40 mg ca psule Discontinued 30 MG PO DAILY August 01, 2018 11:00pm October 11, 2018 8:58am Comment on above: Take 1 capsule by [facility] once daily. hydrOXYzine hydrochloride 25 [...] daily. mometasone furoate 0.001 mg/mg topical ointment (13 sources) Corticosteroid Start: 10-06-19 23 mometasone (ELOCON) 0.1 % ointment Indications: Rash and nonspecific skin eruption Apply to affected area once daily as needed. Once daily as needed on rash 15 g 2 10/05/2022 Active Comment on above: Apply to affected ar ea once daily as needed. Once daily as needed on rash mupirocin 0.02 mg/mg topical ointment (13 sources) RNA Synthetase Inhibitor Antibacterial Start: 10-06-19 23 mupirocin (BACTROBAN) 2 % ointment Indications: Rash and nonspecific skin eruption Apply to affected area twice daily as needed (skin infection). 30 g 0 10/05/2022 Active Comment on above: Apply to affected ar ea twice daily as needed (skin infection). omega 3-fza-qwk-fish oil (FISH OIL) 100-160-1,000 mg cap (20 sources) omega 9-tpb-mfa-fish oil (FISH OIL) 100-160-1,000 mg cap Take 1 capsule by mouth. 0 Active Comment on above: Take 1 capsule by mo [facility]. ondansetron 4 mg disintegrating oral tablet (3 sources) Serotonin-3 Receptor Antagonist Start: 10-04-19 19 End: 10-12-19 19 take 4 mg by mouth every six hours as needed Ondansetron Discontinued 4 MG PO EVERY 6 HOURS NEEDED October 03, 2018 8:27pm October 11, 2018 8:58am Start: 10-03-2018 take 1 tablet by [facility] every six hours as needed ondansetron 4 [...] Comment on above: Take by mouth. thyroid (care home) 60 mg oral tablet (20 sources) Start: 07-14-2023 take 1 tablet by mouth once daily ARMOUR THYROID 60 mg tablet Indications: Hypothyroidism, unspecified type Take 1 tablet by mouth once daily. 90 tablet 1 07/14/2023 Active Start: 05-03-2023 take 1 tablet by [facility] once [...] tablet (20 sources) Serotonin Reuptake Inhibitor Start: 07-14-2023 traZODone (DESYREL) 50 mg tablet Indications: Situational insomnia , Anxiety with depression TAKE 1 TO 2 TABLETS AT BEDTIME FOR SLEEP 90 tablet 1 07/14/2023 Active Start: 06-10-2021 End: 12-26-2022 traZODone (DESYREL) 50 mg ta blet Indications: Situational insomnia , Anxiety with depression [...] childhood and adolescence] Onset: 09-21-2020 09-21-2020 Chronic Heart valve disorders (1 source) Tricuspid valve regurgitation; Translations: [Rheumatic tricuspid insufficiency] Onset: 07-15-2023 07-15-2023 Chronic Influenza (1 source) Influenza-like illness; Translations: [...] 09-16-2015 Episodic Other and unspecified benign neoplasm (7 sources) Dysplastic nevus of skin; Translations: [Melanocytic [...] and Lateralon 06-20 Chest PA and Lateral [facility] Imaging Services [address] [place] [address] Chest PA and Lateral MR#: [id number] Acct: [id number] Name: HENRY OLIVEIRA Rep #: [id number] : 1955 F 67 From: Sathya Everett PCP: Dr. Shin Arias DO Status: [facility] CLI Study: Chest PA and Lateral Date of Exam: 06/20/23 Exam# [id number] Ordering Dr: Shin Arias DO [id number] INDICATION: Shortness of breath EXAMINATION/TECHNIQUE: X-RAY - [...] EST , CC: Dr. Shin Arias DO Cigar Wrapper: Signed Normal [facility] Echo Completeon 06-20-2023 Echo Complete [facility] Cardiovascular Services [address] [place] [address] Echo Complete 06/20/23 1324 MR#: [id number] Acct: [id number] Name: HENRY OLIVEIRA Rep #: [id number] : 1955 67 From: Shilo August MD Attending Dr: Dr. Shin Arias DO Status: R EG CLI Ordering Dr: Shin Arias DO Date: 06/20/23 Location[facility] Sex: F C Admitted: Reason For Study: [...] Physician: Shin Arias Performed By: Angela Marshall, RDCS, RVT 06/20/23 1624 Date Shilo August MD CC: Dr. Shin Arias DO Date Dictated: 06/20/23 1324 Date Transcribed: 06/20/23 162 Cigar Wrapper: Signed [facility] 06-09-2023 [facility] Telephone (FAMPST) HENRY OLIVEIRA ([id number]) 1955 F Date Time Provider Department 06/09/23 ARIAS, SHIN L FAMPST During your visit today, we recorded the following information about you: Mary Jo Alcantara 06/09/2023 4:24 PM Signed Tawana is calling Shin Arias DO today to request a RX to start generic synthroid as the [place] thyroid has become too expensive. Patient has not picked up that RX from [facility] as it was to costly. Please send the levothyroxine to [facility] Federico if provider agrees. Patient is almost out [...] calling: self Call patient at: on cell [phone] (home) [phone] (work) [phone] (cell) Was an appointment scheduled: No Closing statement: Results or non-symptom based questions: Thank you for calling [facility], your call will be returned within the next business day. Mary Jo Pitt [facility] Alivia Fagan, RN 06/12/2023 9:27 AM Signed Pt wants to cancel this request. States she wants to stick with the [place] thyroid for now. Allergies As of Date: [...] daily as needed (skin infection). - omega 6-vns-lwj-fish oil (FISH OIL) 100-160-1,000 mg cap Take [...] right-sided *11/01/2016 (more content not included)... Normal [facility] CNOVon 05-03-2023 CNOV Office Visit (FAMPWS ) HENRY OLIVEIRA ([id number]) 1955 F Date Time Provider Department 05/03/23 9:40 AM SHIN ARIAS FAMPWS During your visit today, we recorded the following information about you: Temperature Pulse Respiration Blood pressure 97.1 degrees 64/minute 16/minute 120/80 Weight 54.9 kg Shin Arias, DO 05/03/2023 2:17 PM Signed CC: Henry Oliveira is a 67 year old female who presents to the office for follow up HPI: Dave in office in October, at that time History of stroke 4 years ago, no new neurologic symptoms. Still able to drive without difficulty. Sometimes with low back pain/aching that comes and goes with prolonged standing or walking. 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 Did have some b/l [...] this brings her melyssa. 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 Interested in seeing Deboner at [facility]. PAST MEDICAL HISTORY Diagnosis Date Abnormal glandular Papanicolaou smear of cervix Abn. Pap smear (cervix) Asymptomatic varicose veins Depressive disorder, not elsewhere classified 09/27/2006 Hearing decreased Hyperlipidemia Hypothyroidism 2010 HERNAN on CPAP [facility] Peripheral vascular disease, (more content not included)... Normal [facility] [id number] 05-03-2023 ECG01 Ventricular Rate : 5 2 BPM Atrial Rate : 52 BPM P-R Interval : 160 ms QRS Duration : 84 ms Q-T Interval : 442 ms QTC Calculation(Bazett) : 411 ms Calculated P [place] : 67 degrees Calculated R [place] : 28 degrees Calculated T [place] : 55 degrees SINUS BRADYCARDIA OTHERWISE NORMAL ECG Confirmed by ISRAEL LIU D.O. ([id number]) on 05/19/2023 3:41:26 PM NAME : HENRY OLIVEIRA PID : [id number] : 1955 Gender : Female Race : ORD : Procedure Date : May 03 2023 10:54:51 Edit Date : May 19 2023 15:41:31 Diagnosis: SINUS BRADYCARDIA OTHERWISE NORMAL ECG Confirmed by ISRAEL LIU D.O. ([id number]) on 05/19/2023 3:41:26 PM Test Reason : Location : [address] [place] [address] Overread By : ISRAEL LIU D.O. Edited By : ISRAEL LIU D.O. Referred By : , Acquired by : Ana arcos [facility] 02-09-2023 CNPN Telephone (FAMPWS) HENRY OLIVEIRA ([id number]) 1955 F Date Time Provider Department 02/09/23 [facility] your visit today, we recorded the following information about you: Sera Dobson Ma 02/09/2023 8:48 AM Signed Received fax from pharmacy PA needed for [place] thyroid. Electronic PA submitted Sera Matt Ma, Ma 02/09/2023 10:00 AM Signed PA denied [place] Thyroid is not covered and does not [...] Reason for Visit: Insurance Authorization [[id number]] Cmt: [place] thyroid Prescriptions as of 02/09/2023 - ARMOUR THYROID 60 mg tablet Take [...] daily as needed (skin infection). - omega 5-yzq-rlu-fish oil (FISH OIL) 100-160-1,000 mg cap Take [...] of ri (more content not included)... [facility] HENRY OLIVEIRA ([id number]) 1955 F Date Time Provider Department 01/26/23 LIDA CARDENAS [facility] During your visit today, we recorded the following information about you: Kelsea Vallecillo MA 01/26/2023 8:35 AM Signed ----- Message from Lida Cardenas APRN.SEARCH DIRECTOR sent at 01/26/2023 7:21 AM EDT ----- [...] care provider or schedule a visit with [facility]. A test is not [...] tablet by mouth once daily. - omega 3-exo-abc-fish oil (FISH OIL) 100-160-1,000 mg cap Take [...] region [M99.0 (more content not included)... Normal [facility] Influenza virus A and B RNA and SARS-CoV-2 (COVID-19) N gene panel TAYLER+probe (Resp)on 01-26-2023 FLUAV RNA TAYLER+probe Ql (Unsp spec) Not detected Not Detected [facility] FLUBV RNA TAYLER+probe Ql (Unsp spec) Not detected Not Detected [facility] SARS-CoV-2 (COVID-19) RNA TAYLER+probe Ql (Resp) Detected Abnormal See comment [facility] CNOVon 01-25-2023 [facility] HENRY OLIVEIRA ([id number]) 1955 F Date Time Provider Department 01/25/23 3:30 PM CHRIS RENDON [facility] During your visit today, we [...] 1 tablet by mouth once daily. omega 9-hce-jpk-fish oil (FISH OIL) 100-160-1,000 mg cap Take [...] Rash Date Reviewed: 01/25/2023 Reviewed by: Marjorie uCi - Fully Assessed Reason for Visit: Sore Throat [200] Cmt: head congestion x 4 days Primary Visit Diagnosis:Sore throat [J02.9] Other Visit Diagnosis:Influenza-li ke illness [J11.1] Order(s):STREP A MOLECULAR (POC) [8669021] Order #: [id number]. #:[id number] COVID AND INFLUENZA A/B NAAT, ROUTINE [SQCOVFLU] Order #: [id number]. #:[id number] Prescriptions as of 01/25/2023 - dextroamphetamine-amph etamine [...] ARMOUR THYROID (more content not included)... Normal [facility] FLUABV + SARS-CoV-2 Pnl Resp TAYLER+prbon 01-25-2023 Influenza virus A and B RNA and SARS-CoV-2 (COVID-19) N gene panel TAYLER+probe (Resp) COVID 19 RESULT: Detected The method used is RT-PCR or an equivalent NAAT method. Reference Range (the expected result in uninfected individuals): Not detected INFLUENZA A PCR: Not detected INFLUENZA B PCR: Not detected Abnormal [facility] Comment on above: Performed By: #### 2 4323-8, 32735-2, 2276-4, 2284-8 #### [facility] CLIA [id number] [address] [place] [address] [place] STREP A MOLECULAR (POC)on Procedural Control Valid [facility] Strep A (POCT) Negative Negative [facility] CNOVon 12-26-2022 CNOV Office Visit (TANIYA ) HENRY OLIVEIRA ([id number]) 1955 F Date Time Provider Department 12/26/22 8:00 AM Alivia LEYVA During your visit today, we recorded the [...] decreased Hyperlipidemia Hypothyroidism 2010 HERNAN on CPAP [facility] Peripheral vascular disease, unspecified (HCC) varicose veins [...] rash 15 (more content not included)... Normal [facility] HARPALOVon 11-25-2022 [facility] Office Visit (TANIYA ) HENRY OLIVEIRA ([id number]) 1955 F Date Time Provider Department 11/25/22 2:00 PM Alivia LEYVA During your visit today, we recorded the [...] of self injury. Continues to work at [employer], job that she enjoys related to the [...] decreased Hyperlipidemia Hypothyroidism 2010 HERNAN on CPAP [facility] Peripheral vascular disease, unspecified (HCC) varicose veins [...] (Shortness of (more content not included)... Normal [facility] CNOVon 10-19-2022 CNOV Office Visit (FAMPWS ) HENRY OLIVEIRA ([id number]) 1955 F Date Time Provider Department 10/19/22 8:40 AM SHIN ARIAS During your visit today, we recorded the following information about you: Temperature Pulse Respiration Blood pressure 98.2 degrees 64/minute 16/minute 130/74 Weight 58.5 kg Shin Arias DO 10/19/2022 11:09 AM Signed CC: Henryamie Oliveira is a 67 year old female who presents to the office for follow up HPI: Seen in office 2 weeks ago as below Rash on right hand and skin changes around left great toe, using Mometasone ointment with benefit. Had this ointment at home. Wasn't getting better with triamcinolone cream given. 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 Did have some b/l [...] JUSTIN Oleary (more content not included)... Normal [facility] CBC W Auto Differential pane l (Bld)on 10-14-2022 Basophils (Bld) [#/Vol] 0.05 10*3/uL Normal <0.11 [facility] Comment on above: Order Comment: Speci men Type: BLOOD SPECIMEN Ordering Facility: [facility] Address: [address] [place] [address] Performed By: #### 5 7021-8 #### [facility] CLIA [id number] [address] [place] [address] [place] Basophils/100 WBC (Bld) 1.0 % Normal [facility] Comment on above: Order Comment: Speci men Type: BLOOD SPECIMEN Ordering Facility: [facility] Address: [address] [address] Performed By: #### 5 7021-8 #### [facility] CLIA [id number] [address] [place] [address] [place] Differential cell count method Nom (Bld) Auto Normal [facility] Comment on above: Order Comment: Speci men Type: BLOOD SPECIMEN Ordering Facility: [facility] Address: [address] [place], [place] [address] Performed By: #### 5 7021-8 #### [facility] CLIA [id number] [address] [place] [address] [place] Eosinophils (Bld) [#/Vol] 0.12 10*3/uL Normal <0.46 [facility] Comment on above: Order Comment: Speci men Type: BLOOD SPECIMEN Ordering Facility: [facility] Address: [address] Performed By: #### 5 7021-8 #### [facility] CLIA [id number] [address] [place] [address] [place] Eosinophils/100 WBC (Bld) 2.4 % Normal [facility] Comment on above: Order Comment: Speci men Type: BLOOD SPECIMEN Ordering Facility: [facility] Address: [address] Performed By: #### 5 7021-8 #### [facility] CLIA [id number] [address] [place] [address] [place] Erythrocyte distribution width (RBC) [Ratio] 12.4 % Normal 11.5-15.0 [facility] Comment on above: Order Comment: Speci men Type: BLOOD SPECIMEN Ordering Facility: [facility] Address: [address] Performed By: #### 5 7021-8 #### [facility] CLIA [id number] [address] [place] [address] [place] Hematocrit (Bld) [Volume fraction] 42.5 % Normal 36.0-46.0 [facility] Comment on above: Order Comment: Speci men Type: BLOOD SPECIMEN Ordering Facility: [facility] Address: [address] Performed By: #### 5 7021-8 #### [facility] CLIA [id number] [address] [id number] [address] [place] Hemoglobin (Bld) [Mass/Vol] 13.9 g/dL Normal 11.5-15.5 [facility] Comment on above: Order Comment: Speci men Type: BLOOD SPECIMEN Ordering Facility: [facility] Address: [address] [place], [place] [address] Performed By: #### 5 7021-8 #### [facility] CLIA [id number] [address] [place] [address] [place] Immature granulocytes (Bld) [#/Vol] 10*3/uL Normal <0.10 [facility] Comment on above: Order Comment: Speci men Type: BLOOD SPECIMEN Ordering Facility: [facility] Address: [address] [place], [place] [address] Performed By: #### 5 7021-8 #### [facility] CLIA [id number] [address] [place] [address] [place] Immature granulocytes/100 WBC (Bld) 0.2 % Normal [facility] Comment on above: Order Comment: Speci men Type: BLOOD SPECIMEN Ordering Facility: [facility] Address: [address] [place], [place] [address] Performed By: #### 5 7021-8 #### [facility] CLIA [id number] [address] [place] [address] [place] Lymphocytes (Bld) [#/Vol] 1.71 10*3/uL Normal 1.00-4.00 [facility] Comment on above: Order Comment: Speci men Type: BLOOD SPECIMEN Ordering Facility: [facility] Address: [address] [place], [place] [address] Performed By: #### 5 7021-8 #### [facility] CLIA [id number] [address] [place] [address] [place] Lymphocytes/100 WBC (Bld) 33.6 % Normal [facility] Comment on above: Order Comment: Speci men Type: BLOOD SPECIMEN Ordering Facility: [facility] Address: [address] Performed By: #### 5 7021-8 #### [facility] CLIA [id number] [address] [place] [address] MCH (RBC) [Entitic mass] 30.2 pg Normal 26.0-34.0 [facility] Comment on above: Order Comment: Speci men Type: BLOOD SPECIMEN Ordering Facility: [facility] Address: [address] Performed By: #### 5 7021-8 #### [facility] CLIA [id number] [address] [place] [address] [place] MCHC (RBC) [Mass/Vol] 32.7 g/dL Normal 30.5-36.0 [facility] Comment on above: Order Comment: Speci men Type: BLOOD SPECIMEN Ordering Facility: [facility] Address: [address] Performed By: #### 5 7021-8 #### [facility] CLIA [id number] [address] [place] [address] [place] MCV (RBC) [Entitic vol] 92.2 fL Normal 80.0-100.0 [facility] Comment on above: Order Comment: Speci men Type: BLOOD SPECIMEN Ordering Facility: [facility] Address: [address] [place] [address] Performed By: #### 5 7021-8 #### [facility] CLIA [id number] [address] [place] [address] [place] Monocytes (Bld) [#/Vol] 0.40 10*3/uL Normal <0.87 [facility] Comment on above: Order Comment: Speci men Type: BLOOD SPECIMEN Ordering Facility: [facility] Address: [address] Performed By: #### 5 7021-8 #### [facility] CLIA [id number] [address] [place] [address] [place] Monocytes/100 WBC (Bld) 7.9 % Normal [facility] [facility] Comment on above: Order Comment: Speci men Type: BLOOD SPECIMEN Ordering Facility: [facility] Address: [address] [address] Performed By: #### 5 7021-8 #### [facility] CLIA [id number] [address] [place] [address] [place] Neutrophils (Bld) [#/Vol] 2.80 10*3/uL Normal 1.45-7.50 [facility] Comment on above: Order Comment: Speci men Type: BLOOD SPECIMEN Ordering Facility: [facility] Address: [address] [address] Performed By: #### 5 7021-8 #### [facility] CLIA [id number] [address] [place] [address] [place] Neutrophils/100 WBC (Bld) 54.9 % Normal [facility] Comment on above: Order Comment: Speci men Type: BLOOD SPECIMEN Ordering Facility: [facility] Address: [address] [place], [place] [address] Performed By: #### 5 7021-8 #### [facility] CLIA [id number] [address] [place] [address] [place] Nucleated RBC (Bld) [#/Vol] 10*3/uL Normal <0.01 [facility] Comment on above: Order Comment: Speci men Type: BLOOD SPECIMEN Ordering Facility: [facility] Address: [address] [place], [place] [address] Performed By: #### 5 7021-8 #### [facility] CLIA [id number] [address] [place] [address] [place] Nucleated RBC/100 WBC (Bld) [Ratio] 0.0 /100 WBC Normal [facility] Comment on above: Order Comment: Speci men Type: BLOOD SPECIMEN Ordering Facility: [facility] Address: [address] Performed By: #### 5 7021-8 #### [facility] CLIA [id number] [address] [place] [address] [place] Platelet mean volume (Bld) [Entitic vol] 11.1 fL Normal 9.0-12.7 [facility] Comment on above: Order Comment: Speci men Type: BLOOD SPECIMEN Ordering Facility: [facility] Address: [address] [place], [place] [address] Performed By: #### 5 7021-8 #### [facility] CLIA [id number] [address] [place] [address] [place] Platelets (Bld) [#/Vol] 214 10*3/uL Normal 150-400 [facility] Comment on above: Order Comment: Speci men Type: BLOOD SPECIMEN Ordering Facility: [facility] Address: [address] [place], [place] [address] Performed By: #### 5 7021-8 #### [facility] CLIA [id number] [address] [place] [address] [place] RBC (Bld) [#/Vol] 4.61 10*6/uL Normal 3.90-5.20 [facility] Comment on above: Order Comment: Speci men Type: BLOOD SPECIMEN Ordering Facility: [facility] Address: [address] [place] [address] Performed By: #### 5 7021-8 #### [facility] CLIA [id number] [address] [place] [address] [place] WBC (Bld) [#/Vol] 5.09 10*3/uL Normal 3.70-11.00 [facility] Comment on above: Order Comment: Speci men Type: BLOOD SPECIMEN Ordering Facility: [facility] Address: [address] Performed By: #### 5 7021-8 #### [facility] CLIA [id number] [address] [place] [address] [place] Comprehensive metabolic 2000 panelon 10-14-2022 Albumin [Mass/Vol] 4.5 g/dL Normal 3.9-4.9 [facility] Comment on above: Order Comment: Speci men Type: BLOOD SPECIMEN Ordering Facility: [facility] Address: [address] Performed By: #### 2 4323-8, 29768-5, 6-4, 228-8 #### [facility] CLIA [id number] [address] [place] [address] [place] ALP [Catalytic activity/Vol] 104 U/L Normal 34-123 [facility] Comment on above: Order Comment: Speci men Type: BLOOD SPECIMEN Ordering Facility: [facility] Address: [address] Performed By: #### 2 4323-8, 53049-3, 6-4, 2283-8 #### [facility] CLIA [id number] [address] [place] [address] [place] ALT [Catalytic activity/Vol] 14 U/L Normal 7-38 [facility] Comment on above: Order Comment: Speci men Type: BLOOD SPECIMEN Ordering Facility: [facility] Address: [address] Performed By: #### 2 4323-8, 93201-1, 6-4, 2283-8 #### [facility] CLIA [id number] [address] [place] [address] [place] Anion gap [Moles/Vol] 12 mmol/L Normal 9-18 [facility] Comment on above: Order Comment: Speci men Type: BLOOD SPECIMEN Ordering Facility: [facility] Address: [address] Performed By: #### 2 4323-8, 06372-4, 6-4, 2284-8 #### [facility] CLIA [id number] [address] [place] [address] [place] AST [Catalytic activity/Vol] 20 U/L Normal 13-35 [facility] Comment on above: Order Comment: Speci men Type: BLOOD SPECIMEN Ordering Facility: [facility] Address: [address] [place] [address] Performed By: #### 2 4323-8, 93720-4, 6-4, 2283-8 #### [facility] CLIA [id number] [address] [place] [address] [place] Bilirubin [Mass/Vol] 0.5 mg/dL Normal 0.2-1.3 [facility] Comment on above: Order Comment: Speci men Type: BLOOD SPECIMEN Ordering Facility: [facility] Address: [address] [place] [address] Performed By: #### 2 4323-8, 77168-1, 6-4, 2283-8 #### [facility] CLIA [id number] [address] [place] [address] [place] Calcium [Mass/Vol] 9.7 mg/dL Normal 8.5-10.2 [facility] Comment on above: Order Comment: Speci men Type: BLOOD SPECIMEN Ordering Facility: [facility] Address: [address] [place], [place] [address] Performed By: #### 2 4323-8, 92847-0, 2275-4, 228-8 #### [facility] CLIA [id number] [address] [place] [address] [place] Chloride [Moles/Vol] 106 mmol/L High 97-105 [facility] Comment on above: Order Comment: Speci men Type: BLOOD SPECIMEN Ordering Facility: [facility] Address: [address] [place] [address] Performed By: #### 2 4323-8, 75208-3, 2275-4, 8 #### [facility] CLIA [id number] [address] [place] [address] [place] CO2 [Moles/Vol] 25 mmol/L Normal 22-30 [facility] Comment on above: Order Comment: Speci men Type: BLOOD SPECIMEN Ordering Facility: [facility] Address: [address] [place] [address] Performed By: #### 2 4323-8, 93118-4, 2275-4, 8 #### [facility] CLIA [id number] [address] [place] [address] [place] Creatinine [Mass/Vol] 0.56 mg/dL Low 0.58-0.96 [facility] Comment on above: Order Comment: Speci men Type: BLOOD SPECIMEN Ordering Facility: [facility] Address: [address] [place] [address] Performed By: #### 2 4323-8, 15939-6, 4, 8 #### [facility] CLIA [id number] [address] [place] [address] [place] ESTIMATED GLOMERULAR FILTRATION RATE 100 mL/min/1.73m??? Normal >=60 [facility] Comment on above: Order Comment: Speci men Type: BLOOD SPECIMEN Ordering Facility: [facility] Address: [address] [place] [address] Result Comment: Letty mated Glomerular Filtration Rate [...] actual GFR. Performed By: #### 2 4323-8, 92542-0, 2275-4, 2283-8 #### [facility] CLIA [id number] [address] [place] [address] [place] Glucose [Mass/Vol] 83 mg/dL Normal 74-99 [facility] Comment on above: Order Comment: Ciara levine Type: BLOOD SPECIMEN Ordering Facility: [facility] Address: [address] [place] [address] Result Comment: The [place] Diabetes Association (ADA) provides guidance for cutoff [...] Standards of Medical Care in Diabetes 2016, [place] Diabetes Association. Diabetes Care. 2016.39(Suppl 1). Performed By: #### 2 4323-8, 57613-1, 2276-4, 2284-8 #### [facility] CLIA [id number] [address] [place] [address] [place] Potassium [Moles/Vol] 3.9 mmol/L Normal 3.7-5.1 [facility] Comment on above: Order Comment: Ciara levine Type: BLOOD SPECIMEN Ordering Facility: [facility] Address: [address] [place], [place] [address] Performed By: #### 2 4323-8, 63604-5, 6-4, 228-8 #### [facility] CLIA [id number] [address] [place] [address] [place] Protein [Mass/Vol] 6.6 g/dL Normal 6.3-8.0 [facility] Comment on above: Order Comment: Ciara levine Type: BLOOD SPECIMEN Ordering Facility: [facility] Address: [address] [place], [place] [address] Performed By: #### 2 4323-8, 18426-6, 2276-4, 2284-8 #### [facility] CLIA [id number] [address] [place] [address] [place] Sodium [Moles/Vol] 143 mmol/L Normal 136-144 [facility] Comment on above: Order Comment: Speci men Type: BLOOD SPECIMEN Ordering Facility: [facility] Address: [address] [address] Performed By: #### 2 4323-8, 69270-8, 6-4, 2284-8 #### [facility] CLIA [id number] [address] [place] [address] [place] Urea nitrogen [Mass/Vol] 9 mg/dL Normal 7-21 [facility] Comment on above: Order Comment: Speci men Type: BLOOD SPECIMEN Ordering Facility: [facility] Address: [address] Performed By: #### 2 4323-8, 86101-9, 6-4, 2284-8 #### [facility] CLIA [id number] [address] [place] [address] [place] Ferritin SerPl-mCncon 2022 Ferritin [Mass/Vol] 170.0 ng/mL Normal 14.7-205.1 [facility] Comment on above: Order Comment: Speci men Type: BLOOD SPECIMEN Ordering Facility: [facility] Address: [address] Performed By: #### 2 4323-8, 01380-6, 6-4, 2284-8 #### [facility] CLIA [id number] [address] [place] [address] [place] Folate SerPl-mCncon 10-15-19 23 Folate [Mass/Vol] ng/mL Normal >4.7 [facility] Comment on above: Order Comment: Speci men Type: BLOOD SPECIMEN Ordering Facility: [facility] Address: [address] Result Comment: A re sult of > 20 ng/mL is not necessarily indicative of a pathologic or treatable condition: it reflects a limitation of the test methodology. Assay reference range: 4.8 to 24.2 ng/mL. Suitable for detection of folate deficiency. Reference: Folate III (Folate III) [package insert V 1.0 Lithuanian]. [employer], [place], [place]: March 2015. Performed By: #### 2 4323-8, 87780-8, 2275-4, 2283-12 #### [facility] CLIA [id number] [address] [place] [address] [place] HbA1c (Bld)on 10-14-2022 Average glucose Estimated from glycated hemoglobin (Bld) [Mass/Vol] 100 mg/dL Normal [facility] Comment on above: Order Comment: Ciara levine Type: BLOOD SPECIMEN Ordering Facility: [facility] Address: [address] Result Comment: eAG: (Estimated average glucose) is a calculated value from HgbA1c and is human resources representative of the average blood glucose level in the last 2-3 month period. Performed By: #### 2 4323-8, 17708-9, 4, 8 #### [facility] CLIA [id number] [address] [place] [address] [place] HbA1c (Bld) [Mass fraction] 5.1 % Normal 4.3-5.6 [facility] Comment on above: Order Comment: Ciara levine Type: BLOOD SPECIMEN Ordering Facility: [facility] Address: [address] [place] [address] Result Comment: [place] Diabetes Association guidelines indicate that patients with HgbA1c in the range 5.7-6.4% are at increased risk for development of diabetes, and intervention by lifestyle modification may be beneficial. HgbA1c greater or equal to 6.5% is considered diagnostic of diabetes. Performed By: #### 2 4323-8, 66074-2, 2275-4, 2283-8 #### [facility] CLIA [id number] [address] [place] [address] [place] Iron and Iron binding capaci ty panelon 10-14-2022 Iron [Mass/Vol] 119 ug/dL Normal 41-186 [facility] Comment on above: Order Comment: Speci men Type: BLOOD SPECIMEN Ordering Facility: [facility] Address: [address] [place] [address] Performed By: #### 2 4323-8, 84538-2, 2275-4, 2283-8 #### [facility] [place] [id number] [address] [place] [address] [place] Iron binding capacity [Mass/Vol] 277 ug/dL Normal 232-386 [facility] Comment on above: Order Comment: Speci men Type: BLOOD SPECIMEN Ordering Facility: [facility] Address: [address] [place] [address] Performed By: #### 2 4323-8, 19898-2, 6-4, 2283-8 #### [facility] [place] [id number] [address] [place] [address] [place] Iron/TIBC [Molar ratio] 43.0 % Normal 15.0-57.0 [facility] Comment on above: Order Comment: Speci men Type: BLOOD SPECIMEN Ordering Facility: [facility] Address: [address] [place] [address] Performed By: #### 2 4323-8, 30106-4, 6-4, 2283-8 #### [facility] [place] [id number] [address] [place] [address] [place] Lipid 1996 panelon 3 Cholesterol [Mass/Vol] 200 mg/dL High <200 [facility] Comment on above: Order Comment: Speci men Type: BLOOD SPECIMEN Ordering Facility: [facility] Address: [address] [place], [place] [address] Result Comment: <200 mg/dL, Desirable 200-239 mg/dL, Borderline high >239 mg/dL, High Performed By: #### 2 4323-8, 49104-5, 2275-4, 2283-8 #### [facility] CLIA [id number] [address] [address] [place] Cholesterol in HDL [Mass/Vol] 71 mg/dL Normal >39 [facility] Comment on above: Order Comment: Ciara levine Type: BLOOD SPECIMEN Ordering Facility: [facility] Address: [address] [place], [place] [address] Result Comment: 40-5 9 mg/dL, Acceptable >59 mg/dL, High: Negative risk factor for coronary heart disease <40 mg/dL, Low: Positive risk factor for coronary heart disease Performed By: #### 2 4323-8, 37999-1, 2275-4, 2283-8 #### [facility] CLIA [id number] [address] [id number] [place] Cholesterol in LDL [Mass/Vol] 121 mg/dL High <100 [facility] Comment on above: Order Comment: Ciara levine Type: BLOOD SPECIMEN Ordering Facility: [facility] Address: [address] [place] [address] Result Comment: <100 mg/dL, Optimal 100-129 mg/dL, Near optimal/above optimal 130-159 mg/dL, Borderline high 160-189 mg/dL, High >189 mg/dL, Very high Secondary prevention optimal LDL Cholesterol levels are recommended to be < 70 mg/dL Performed By: #### 2 4323-8, 82574-5, 2275-4, 2283-8 #### [facility] CLIA [id number] [address] [id number] [place] Cholesterol in LDL/Cholesterol in HDL [Mass ratio] 1.70 {ratio} Normal <2.54 [facility] Comment on above: Order Comment: Ciara levine Type: BLOOD SPECIMEN Ordering Facility: [facility] Address: [address] [place], [place] [address] Result Comment: Miguel pena: 1. National Cholesterol Education Program ATP III Guideline At-A-Glance Quick Desk Reference: National Heart, Lung, and Blood [place]. National Institutes of Health. 2001: NIH Publication No. 01-3305. 2. An International Atherosclerosis Society position paper: global recommendations for the management of dyslipidemia: executive summary, Atherosclerosis. 2014: 232(2):410-413. Performed By: #### 2 4323-8, 28564-3, 2275-4, 2283-8 #### [facility] CLIA [id number] [address] [place] [address] [place] Cholesterol in VLDL [Mass/Vol] 8 mg/dL Normal <30 [facility] Comment on above: Order Comment: Speci men Type: BLOOD SPECIMEN Ordering Facility: [facility] Address: [address] [place] [address] Performed By: #### 2 4323-8, 31635-7, 2275-4, 8 #### [facility] CLIA [id number] [address] [place] [address] [place] Cholesterol non HDL [Mass/Vol] 129 mg/dL Normal <130 [facility] Comment on above: Order Comment: Speci men Type: BLOOD SPECIMEN Ordering Facility: [facility] Address: [address] [place] [address] Result Comment: <130 mg/dL, Optimal 130-159 mg/dL, Near optimal/above optimal 160-189 mg/dL, Borderline high 190-219 mg/dL, High >219 mg/dL, Very high Secondary prevention optimal non HDL Cholesterol levels are recommended to be <100 mg/dL Performed By: #### 2 4323-8, 06418-5, 2275-4, 2283-8 #### [facility] CLIA [id number] [address] [address] [place] Cholesterol.total/C holesterol in HDL [Mass ratio] 2.82 {ratio} Normal <5.10 [facility] Comment on above: Order Comment: Speci men Type: BLOOD SPECIMEN Ordering Facility: [facility] Address: [address] [address] Performed By: #### 2 4323-8, 66533-9, 2275-4, 8 #### [facility] CLIA [id number] [address] [place] [address] [place] FASTING TIME 14 hrs Normal [facility] Comment on above: Order Comment: Speci men Type: BLOOD SPECIMEN Ordering Facility: [facility] Address: [address] [address] Performed By: #### 2 4323-8, 72611-1, 4, 8 #### [facility] CLIA [id number] [address] [place] [address] [place] Triglyceride [Mass/Vol] 38 mg/dL Normal <150 [facility] Comment on above: Order Comment: Speci men Type: BLOOD SPECIMEN Ordering Facility: [facility] Address: [address] [address] Result Comment: <150 mg/dL, Normal 150-199 mg/dL, Borderline high 200-499 mg/dL, High >499 mg/dL, Very high Performed By: #### 2 4323-8, 43454-8, 2275-4, 8 #### [facility] CLIA [id number] [address] [place] [address] [place] T3Free SerPl-mCncon 10-15-19 23 Free T3 [Mass/Vol] 5.2 pg/mL High 2.3-4.1 [facility] Comment on above: Order Comment: Speci men Type: BLOOD SPECIMEN Ordering Facility: [facility] Address: [address] [address] Performed By: #### 2 4323-8, 61626-6, 2275-4, 2283-8 #### [facility] CLIA [id number] [address] [place] [address] [place] T4 Free SerPl-mCncon 023 Free T4 [Mass/Vol] 1.2 ng/dL Normal 0.9-1.7 [facility] Comment on above: Order Comment: Speci men Type: BLOOD SPECIMEN Ordering Facility: [facility] Address: [address] [place] [address] Performed By: #### 2 4323-8, 90632-0, 2276-4, 228-8 #### [facility] CLIA [id number] [address] [place] [address] [place] TSH SerPl-aCncon 10-14-2022 TSH Qn 1.130 m[IU]/L Normal 0.270-4.200 [facility] Comment on above: Order Comment: Speci men Type: BLOOD SPECIMEN Ordering Facility: [facility] Address: [address] [place] [address] Performed By: #### 2 4323-8, 00312-3, 6-4, 2283-8 #### [facility] CLIA [id number] [address] [place] [address] [place] VITAMIN B6/PYRIDOXINon 10-14 VITAMIN B6 73.3 nmol/L Normal 20.0-125.0 [facility] Comment on above: Order Comment: Speci men Type: BLOOD SPECIMENOrdering Facility: [facility] Address: [address] [place] [address] Result Comment: INTE RPRETIVE INFORMATION: Vitamin B6 (Pyridoxal 5-Phosphate) Pyridoxal 5'-phosphate measured in a specimen collected following an 8-hour or overnight fast accurately indicates vitamin B6 nutritional status. Non-fasting specimen concentration reflects recent vitamin intake. This test was developed and its performance characteristics determined by [facility]. It has not been cleared or approved by the [place] Food and Drug Administration. This test was performed in a CLIA certified laboratory and is intended for clinical purposes. Performed By: [facility] [address] [place] [address] Apprentice: Steve Rios MD, PhD Performed By: #### V ITB6 ####[facility] [id number] [place] [address] HARPALOVon 10-05-2022 CN Office Visit (FAMPWS ) HENRY OLIVEIRA ([id number]) 1955 F Date Time Provider Department 10/05/22 8:20 AM [facility] During your visit today, we recorded [...] given. 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 Normal [facility] CNOVon 08-10-2022 CNOV Office Visit (FAMPWS ) HENRY OLIVEIRA ([id number]) 1955 F Date Time Provider Department 08/10/22 11:20 AM SHIN ARIAS [facility] During your visit today, we recorded the following information about you: Temperature Pulse Respiration Blood pressure 98.4 degrees 88/minute 16/minute 120/80 Weight 58.1 kg Shin Arias DO 08/10/2022 12:04 PM Signed CC: Henry Wood Rabiaenidshahnaz is a 66 year old female who [...] Hyperlipidemia Hypothyroidism 2010 HERNAN on CPAP [facility] Peripheral vascular disease, unspecified (HCC) [...] repair Current Outpatient Medications Medication Sig omega 7-abh-eci-fish oil (FISH OIL) 100-160-1,000 mg cap Take [...] - Topica (more content not included)... [facility] HENRY OLIVEIRA ([id number]) 1955 F Date Time Provider Department 08/09/22 SHIN ARIAS During your visit today, we recorded the following information about you: Breana Deleonoliviaaaron VITA 08/09/2022 8:08 AM Signed Patient calling asking for appt today with PCP she has poison ismael rash and hands and feet and is spreading. Patient refuses to go to express care, aware [employer] are out of office today. Please advise Shin Arias DO 08/09/2022 5:22 PM Signed Please schedule her an appt. I have 3 openings tomorrow or can see [employer] as well DO Lupe Yarbrough LPN 08/09/2022 5:26 PM Signed Appointment made message left on VM. Allergies As of Date: 08/09/2022 Noted Allergy Reaction BACTRIM (SULFAMETHOXAZOLE) 05/23/2014 4 - Hives MORPHINE SULFATE 03/30/2005 9 - Itching TEA TREE OIL 07/22/2009 2 - Rash Date Reviewed: 06/06/2022 Reviewed by: Jossy Gustafson APRN.SEARCH DIRECTOR - Fully Assessed Reason for Visit: Appointment [186] Prescriptions as of 08/09/2022 - ARMOUR THYROID 90 mg tablet Take 1 tablet by mouth once daily. - dextroamphetamine-amph etamine (ADDERALL) 10 mg tablet Take 0.5-1 tablets by mouth once daily for 30 days. - omega 5-unp-zio-fish oil (FISH OIL) 100-160-1,000 mg cap Take [...] with radiculopathy*03 (more content not included)... [facility] SO[facility] (FAMWS) TEEHENRY Israel ([id number]) 1955 F Date Time Provider Department 08/03/22 SHIN ARIAS [facility] During your visit today, we recorded the following information about you: Shin Arias DO 08/03/2022 8:53 PM Signed Please inform patient [...] 1 day a week Shin [facility]as DO [facility] 08/04/2022 8:48 AM Signed Left message for patient to return call [facility] Breana Saha LPN 08/05/2022 8:38 AM Signed Patient returned call and went over results, notes from Dr Arias with understanding. Patient said she has been skipping one day a week for long time with her amour thyroid. Patient asking what did you want her to do now? Jossy Gustafson APRN.ARA 08/05/2022 3:25 PM Signed Hold armour thyroid 2x per week. Jossy Gustafson APRN.ARA Jaz Holiday 08/05/2022 3:29 PM Signed Pt informed, verbalized understanding Allergies As of Date: 08/03/2022 Noted Allergy Reaction BACTRIM (SULFAMETHOXAZOLE) 05/23/2014 4 - Hives MORPHINE SULFATE 03/30/2005 9 - Itching TEA TREE OIL 07/22/2009 2 - Rash Date Reviewed: 06/06/2022 Reviewed by: Jossy Gustafson APRN.SEARCH DIRECTOR - Fully Assessed Reason for Visit: Results [95] Prescriptions as of 08/05/2022 - ARMOUR THYROID 90 mg tablet Take 1 tablet by mouth once daily. - dextroamphetamine-amph etamine (ADDERALL) 10 mg tablet Take 0.5-1 tablets by mouth once daily for 30 days. - omega 2-rvj-wrw-fish oil (FISH OIL) 100-160-1,000 mg cap Take [...] for malignant*03/31/2016 (more content not included)... Normal [facility] Telephone (FAMPWS) HENRY OLIVEIRA ([id number]) 1955 F Date Time Provider Department 08/03/22 [facility] During your visit today, we recorded the following information about you: Laury Pierre RN 08/03/2022 10:55 AM Signed Pt called in and reports office will need to call insurance phone # [phone] to get their [place] Thyroid added to insurance formulary. Pt reports she is almost out of medication. Prior Authorization Documentation Prior authorization requested for the following medication: Medication: [place] Thyroid Provider: Dr Arias Insurance Company Name: [facility] Medicare Insurance Company Phone number: [phone] Patient ID number: [id number] Pharmacy Name: [facility] Telephone number: [phone] Doretha Binta GORMAN 08/05/2022 2:03 PM Addendum THE OFFICE CAN COMPLETE A PA. we have no pharmacy benefits on file. Will have to review via covermymeds.We do not have the ability to add meds to a formulary. Doretha Binta GORMAN 08/03/2022 11:39 AM Signed Henry Oliveira Sawyer: [id number] - PA help? Call us at Status Sent to [facility] [place] Thyroid 90MG tablets Form [employer] Electronic Prior Authorization Form (2017 NCPDP) Doretha Binta GORMAN 08/03/2022 2:23 PM Signed Henry Oliveira Sawyer: [id number] - PA help? Call us at Outcome Deniedtoday Request Reference Number: [id number]. ARMOUR THYRO TAB 90MG is denied for not meeting the prior authorization requirement(s). Details of this decision are in the notice attached below or have been faxed to you Breana Saha [facility] 08/05/2022 8:37 AM Signed Patient calling said she needs formulary exception done for the Amour thyroid. Doretha Judd SPEECH WRITER 08/05/2022 2:08 PM Signed Called the number provided. This was not correct. Pharmacy is [phone]. PA already completed and denied. Tier exception is being reviewed. Will rec'd response via fax. The reference number for this is [id number]. This call took over 20 minutes. Doretha Judd SPEECH WRITER 09/07/2022 10:25 AM Signed Called insurance and they report if the if the insurance has denied this for a PA for the medicine. The tier exception is also denied. They are faxing this info to the providers office. Doretha Judd SPEECH WRITER 09/07/2022 10:53 AM Signed Rec'd fax and this was dated 08/05/22. To medical records for scanning. My chart message to pt. Allergies As of Date: 08/03/2022 Noted Allergy Reaction BACTRIM (SULFAMETHOXAZOLE) 05/23/2014 4 - Hives MORPHINE SULFATE 03/30/2005 9 - Itching TEA TREE OIL 07/22/2009 2 - Rash Date Reviewed: 06/06/2022 Reviewed by: Jossy Gustafson APRN.SEARCH DIRECTOR - Fully Assessed Reason for Visit: Medication [...] once daily for 30 days. - omega 7-fjp-ddz-fish oil (FISH OIL) 100-160-1,000 mg cap Take [...] Noted Resolved (more content not included)... Normal [facility] Hemoccult Stl Ql IAon 2022 Lower GI hemoglobin IA Ql (Stl) Negative Normal Negative [facility] Comment on above: Order Comment: Speci men Type: STOOL SPECIMENOrdering Facility: [facility] Address: [address] [place] [address] Performed By: #### 2 9771-3 ####[facility] [id number] [facility] [id number] [address] [place] CNPZainab 07-22-2022 CNPN [facility] HENRY OLIVEIRA ([id number]) 1955 F Date Time Provider Department 07/22/22 SHIN ARIAS [facility] During your visit today, we recorded [...] Date Reviewed: 06/06/2022 Reviewed by: Jossy Gustafson APRN.SEARCH DIRECTOR - Fully Assessed Reason for Visit: Results [95] Prescriptions as of 07/22/2022 - ARMOUR THYROID 90 mg tablet Take 1 tablet by mouth once daily. - dextroamphetamine-amph etamine (ADDERALL) 10 mg tablet Take 0.5-1 tablets by mouth once daily for 30 days. - omega 6-mei-bgr-fish oil (FISH OIL) 100-160-1,000 mg cap Take [...] spine [M48.*07/17/2017 Intervertebral disc disorder with radiculopathy*07/18/19 18 DDD (degenerative disc disease), lumbar [M51.36]07/17/2017 Hypothyroidism, acquired [E03.9] 07/25/2018 Well adult exam [Z00.00 (more content not included)... Normal [facility] 25(OH)[facility]3 [facility] 25-hydroxyvitamin D3 [Mass/Vol] 59.2 ng/mL Normal 31.0-80.0 [facility] Comment on above: Order Comment: Speci men Type: BLOOD SPECIMEN Ordering Facility: [facility] Address: [address] [place] [address] Result Comment: Clas sification of 25 [place] Vitamin D status: Deficiency/Insufficiency: < or = 30 ng/ml. Sufficiency/Optimal Levels: 31-80 ng/mL Toxicity: > 100 ng/mL. Test performed by chemiluminescent immunoassay. Performed By: #### 2 4323-8, 37021-8, 2276-4, 2284-8 #### [facility] CLIA [id number] [address] [place] [address] [place] CBC W Auto Differential pane l (Bld)on 07-20-2022 Basophils (Bld) [#/Vol] 0.08 10*3/uL Normal <0.11 [facility] Comment on above: Order Comment: Speci men Type: BLOOD SPECIMENOrdering Facility: [facility] Address: [address] [place] [address] Performed By: #### 5 7021-8 ####[facility]IA [id number] [place] [address] [place] Basophils/100 WBC (Bld) 1.3 % Normal [facility] Comment on above: Order Comment: Speci men Type: BLOOD SPECIMENOrdering Facility: [facility] Address: [address] [place], [place] [address] Performed By: #### 5 7021-8 ####[facility] [id number] [place] [address] [place] Differential cell count method Nom (Bld) Auto Normal [facility] Comment on above: Order Comment: Speci men Type: BLOOD SPECIMENOrdering Facility: [facility] Address: [address] [place] [address] Performed By: #### 5 7021-8 ####[facility] [id number] [place] [address] [place] Eosinophils (Bld) [#/Vol] 0.12 10*3/uL Normal <0.46 [facility] Comment on above: Order Comment: Speci men Type: BLOOD SPECIMENOrdering Facility: [facility] Address: [address] [place] [address] Performed By: #### 5 7021-8 ####[facility] [id number] [place] [address] [place] Eosinophils/100 WBC (Bld) 1.9 % Normal [facility] Comment on above: Order Comment: Speci men Type: BLOOD SPECIMENOrdering Facility: [facility] Address: [address] [place] [address] Performed By: #### 5 7021-8 ####[facility] [id number] [place] [address] [place] Erythrocyte distribution width (RBC) [Ratio] 12.4 % Normal 11.5-15.0 [facility] Comment on above: Order Comment: Speci men Type: BLOOD SPECIMENOrdering Facility: [facility] Address: [address] [place] [address] Performed By: #### 5 7021-8 ####[facility] [id number] [place] [address] [place] Hematocrit (Bld) [Volume fraction] 43.5 % Normal 36.0-46.0 [facility] Comment on above: Order Comment: Speci men Type: BLOOD SPECIMENOrdering Facility: [facility] Address: [address] [place], [place] [address] Performed By: #### 5 7021-8 ####[facility] [id number] [place] [address] [place] Hemoglobin (Bld) [Mass/Vol] 14.7 g/dL Normal 11.5-15.5 [facility] Comment on above: Order Comment: Speci men Type: BLOOD SPECIMENOrdering Facility: [facility] Address: [address] Performed By: #### 5 7021-8 ####[facility] [id number] [place] [address] [place] Immature granulocytes (Bld) [#/Vol] 10*3/uL Normal <0.10 [facility] Comment on above: Order Comment: Speci men Type: BLOOD SPECIMENOrdering Facility: [facility] Address: [address] Performed By: #### 5 7021-8 ####[facility] [id number] [place] [address] [place] Immature granulocytes/100 WBC (Bld) 0.2 % Normal [facility] Comment on above: Order Comment: Speci men Type: BLOOD SPECIMENOrdering Facility: [facility] Address: [address] Performed By: #### 5 7021-8 ####[facility] [id number] [place] [address] [place] Lymphocytes (Bld) [#/Vol] 1.98 10*3/uL Normal 1.00-4.00 [facility] Comment on above: Order Comment: Speci men Type: BLOOD SPECIMENOrdering Facility: [facility] Address: [address] Performed By: #### 5 7021-8 ####[facility] [id number] [place] [address] [place] Lymphocytes/100 WBC (Bld) 31.8 % Normal [facility] Comment on above: Order Comment: Speci men Type: BLOOD SPECIMENOrdering Facility: [facility] Address: [address] Performed By: #### 5 7021-8 ####[facility] [id number] [address] MCH (RBC) [Entitic mass] 30.1 pg Normal 26.0-34.0 [facility] Comment on above: Order Comment: Speci men Type: BLOOD SPECIMENOrdering Facility: [facility] Address: [address] [place] [address] Performed By: #### 5 7021-8 ####[facility] [id number] [address] [place] MCHC (RBC) [Mass/Vol] 33.8 g/dL Normal 30.5-36.0 [facility] Comment on above: Order Comment: Speci men Type: BLOOD SPECIMENOrdering Facility: [facility] Address: [address] [place] [address] Performed By: #### 5 7021-8 ####[facility] [id number] [address] [place] MCV (RBC) [Entitic vol] 89.0 fL Normal 80.0-100.0 [facility] Comment on above: Order Comment: Speci men Type: BLOOD SPECIMENOrdering Facility: [facility] Address: [address] [place] [address] Performed By: #### 5 7021-8 ####[facility] [id number] [address] [place] Monocytes (Bld) [#/Vol] 0.45 10*3/uL Normal <0.87 [facility] Comment on above: Order Comment: Speci men Type: BLOOD SPECIMENOrdering Facility: [facility] Address: [address] [place] [address] Performed By: #### 5 7021-8 ####[facility] [id number] [address] [id number] [address] [place] Monocytes/100 WBC (Bld) 7.2 % Normal [facility] Comment on above: Order Comment: Speci men Type: BLOOD SPECIMENOrdering Facility: [facility] Address: [address] [place], [place] [address] Performed By: #### 5 7021-8 ####[facility] [id number] [place] [address] [place] Neutrophils (Bld) [#/Vol] 3.59 10*3/uL Normal 1.45-7.50 [facility] Comment on above: Order Comment: Speci men Type: BLOOD SPECIMENOrdering Facility: [facility] Address: [address] [place] [address] Performed By: #### 5 7021-8 ####[facility] [id number] [place] [address] [place] Neutrophils/100 WBC (Bld) 57.6 % Normal [facility] Comment on above: Order Comment: Speci men Type: BLOOD SPECIMENOrdering Facility: [facility] Address: [address] [place], [place] [address] Performed By: #### 5 7021-8 ####[facility] [id number] [place] [address] [place] Nucleated RBC (Bld) [#/Vol] 10*3/uL Normal <0.01 [facility] Comment on above: Order Comment: Speci men Type: BLOOD SPECIMENOrdering Facility: [facility] Address: [address] [place], [place] [address] Performed By: #### 5 7021-8 ####[facility] [id number] [place] [address] [place] Nucleated RBC/100 WBC (Bld) [Ratio] 0.0 /100 WBC Normal [facility] Comment on above: Order Comment: Speci men Type: BLOOD SPECIMENOrdering Facility: [facility] Address: [address] [place] [address] Performed By: #### 5 7021-8 ####[facility] [id number] [place] [address] [place] Platelet mean volume (Bld) [Entitic vol] 10.6 fL Normal 9.0-12.7 [facility] Comment on above: Order Comment: Speci men Type: BLOOD SPECIMENOrdering Facility: [facility] Address: [address] [place], [place] [address] Performed By: #### 5 7021-8 ####[facility] [id number] [place] [address] [place] Platelets (Bld) [#/Vol] 233 10*3/uL Normal 150-400 [facility] Comment on above: Order Comment: Speci men Type: BLOOD SPECIMENOrdering Facility: [facility] Address: [address] [place] [address] Performed By: #### 5 7021-8 ####[facility]IA [id number] [place] [address] [place] RBC (Bld) [#/Vol] 4.89 10*6/uL Normal 3.90-5.20 [facility] Comment on above: Order Comment: Speci men Type: BLOOD SPECIMENOrdering Facility: [facility] Address: [address] [place] [address] Performed By: #### 5 7021-8 ####[facility] [id number] [place] [address] [place] WBC (Bld) [#/Vol] 6.23 10*3/uL Normal 3.70-11.00 [facility] Comment on above: Order Comment: Speci men Type: BLOOD SPECIMENOrdering Facility: [facility] Address: [address] [place] [address] Performed By: #### 5 7021-8 ####[facility] [id number] [place] [address] [place] Comprehensive metabolic 2000 panelon 07-20-2022 Albumin [Mass/Vol] 4.6 g/dL Normal 3.9-4.9 [facility] Comment on above: Order Comment: Speci men Type: BLOOD SPECIMEN Ordering Facility: [facility] Address: [address] [place] [address] Performed By: #### 2 4323-8, 37474-8, 2275-4, 2283-8 #### [facility] CLIA [id number] [address] [place] [address] [place] ALP [Catalytic activity/Vol] 116 U/L Normal 34-123 [facility] Comment on above: Order Comment: Speci men Type: BLOOD SPECIMEN Ordering Facility: [facility] Address: [address] [place] [address] Performed By: #### 2 4323-8, 41186-3, 2275-4, 2283-8 #### [facility] CLIA [id number] [address] [place] [address] [place] ALT [Catalytic activity/Vol] 14 U/L Normal 7-38 [facility] Comment on above: Order Comment: Speci men Type: BLOOD SPECIMEN Ordering Facility: [facility] Address: [address] [place], [place] [address] Performed By: #### 2 4323-8, 55761-5, 2275-4, 2283-8 #### [facility] CLIA [id number] [address] [place] [address] [place] Anion gap [Moles/Vol] 9 mmol/L Normal 9-18 [facility] Comment on above: Order Comment: Speci men Type: BLOOD SPECIMEN Ordering Facility: [facility] Address: [address] [place] [address] Performed By: #### 2 4323-8, 80815-8, 4, 2283-12 #### [facility] CLIA [id number] [address] [place] [address] [place] AST [Catalytic activity/Vol] 17 U/L Normal 13-35 [facility] Comment on above: Order Comment: Speci men Type: BLOOD SPECIMEN Ordering Facility: [facility] Address: [address] [place] [address] Performed By: #### 2 4323-8, 08854-8, 4, 2283-12 #### [facility] CLIA [id number] [address] [place] [address] [place] Bilirubin [Mass/Vol] 0.4 mg/dL Normal 0.2-1.3 [facility] Comment on above: Order Comment: Speci men Type: BLOOD SPECIMEN Ordering Facility: [facility] Address: [address] [place], [place] [address] Performed By: #### 2 4323-8, 90888-2, 2275-08, 8 #### [facility] CLIA [id number] [address] [place] [address] [place] Calcium [Mass/Vol] 10.0 mg/dL Normal 8.5-10.2 [facility] Comment on above: Order Comment: Speci men Type: BLOOD SPECIMEN Ordering Facility: [facility] Address: [address] [place], [place] [address] Performed By: #### 2 4323-8, 76740-1, 2275-08, 8 #### [facility] CLIA [id number] [address] [place] [address] [place] Chloride [Moles/Vol] 107 mmol/L High 97-105 [facility] Comment on above: Order Comment: Speci men Type: BLOOD SPECIMEN Ordering Facility: [facility] Address: [address] [place], [place] [address] Performed By: #### 2 4323-8, 86762-4, 2275-08, 8 #### [facility] CLIA [id number] [address] [place] [address] [place] CO2 [Moles/Vol] 28 mmol/L Normal 22-30 [facility] Comment on above: Order Comment: Speci men Type: BLOOD SPECIMEN Ordering Facility: [facility] Address: [address] [place] [address] Performed By: #### 2 4323-8, 44337-7, 4, 8 #### [facility] CLIA [id number] [facility] [place] [address] [place] Creatinine [Mass/Vol] 0.63 mg/dL Normal 0.58-0.96 [facility] Comment on above: Order Comment: Speci men Type: BLOOD SPECIMEN Ordering Facility: [facility] Address: [address] [place] [address] Performed By: #### 2 4323-8, 86896-8, 2275-08, 8 #### [facility] CLIA [id number] [address] [place] [address] [place] ESTIMATED GLOMERULAR FILTRATION RATE 98 mL/min/1.73m??? Normal >=60 [facility] Comment on above: Order Comment: Speci men Type: BLOOD SPECIMEN Ordering Facility: [facility] Address: [address] [place] [address] Result Comment: Letty mated Glomerular Filtration Rate [...] actual GFR. Performed By: #### 2 4323-8, 21327-8, 2275-4, 2283-8 #### [facility] CLIA [id number] [address] [place] [id number] [place] Glucose [Mass/Vol] 92 mg/dL Normal 74-99 [facility] Comment on above: Order Comment: Ciara levine Type: BLOOD SPECIMEN Ordering Facility: [facility] Address: [address] [place], [place] [address] Result Comment: The [place] [employer] (ADA) provides guidance for cutoff [...] Standards of Medical Care in Diabetes 2016, [place] [employer]. Diabetes Care. 2016.39(Suppl 1). Performed By: #### 2 4323-8, 87021-1, 2275-4, 8 #### [facility] CLIA [id number] [facility] [place] [address] [place] Potassium [Moles/Vol] 4.7 mmol/L Normal 3.7-5.1 [facility] Comment on above: Order Comment: Ciara levine Type: BLOOD SPECIMEN Ordering Facility: [facility] Address: [address] [place], [place] [address] Performed By: #### 2 4323-8, 86277-4, 2275-4, 8 #### [facility] CLIA [id number] [address] [place] [id number] [place] Protein [Mass/Vol] 7.4 g/dL Normal 6.3-8.0 [facility] Comment on above: Order Comment: Ciara levine Type: BLOOD SPECIMEN Ordering Facility: [facility] Address: [address] [place], [place] [address] Performed By: #### 2 4323-8, 87000-3, 2275-4, 8 #### [facility] CLIA [id number] [address] [place] [id number] [place] Sodium [Moles/Vol] 144 mmol/L Normal 136-144 [facility] Comment on above: Order Comment: Speci men Type: BLOOD SPECIMEN Ordering Facility: [facility] Address: [address] [place] [address] Performed By: #### 2 4323-8, 51170-5, 2275-4, 8 #### [facility] CLIA [id number] [address] [place] [address] [place] Urea nitrogen [Mass/Vol] 8 mg/dL Normal 7-21 [facility] Comment on above: Order Comment: Speci men Type: BLOOD SPECIMEN Ordering Facility: [facility] Address: [address] [place] [address] Performed By: #### 2 4323-8, 35206-4, 4, 8 #### [facility] CLIA [id number] [address] [place] [address] [place] Ferritin SerPl-mCncon 2022 Ferritin [Mass/Vol] 265.0 ng/mL High 14.7-205.1 [facility] Comment on above: Order Comment: Speci men Type: BLOOD SPECIMENOrdering Facility: [facility] Address: [address] [place] [address] Performed By: #### 1 9123-9, 6-4, 3024-7, 3016-3 ####[facility] [id number] [place] [address] [place] Iron and Iron binding capaci ty panelon 07-20-2022 Iron [Mass/Vol] 99 ug/dL Normal 41-186 [facility] Comment on above: Order Comment: Speci men Type: BLOOD SPECIMEN Ordering Facility: [facility] Address: [address] [place], [place] [address] Performed By: #### 2 4323-8, 84647-4, 2275-4, 8 #### [facility] CLIA [id number] [address] [place] [address] [place] Iron binding capacity [Mass/Vol] 303 ug/dL Normal 232-386 [facility] Comment on above: Order Comment: Speci men Type: BLOOD SPECIMEN Ordering Facility: [facility] Address: [address] [place], [place] [address] Performed By: #### 2 4323-8, 83404-1, 2275-4, 8 #### [facility] CLIA [id number] [address] [place] [address] [place] Iron/TIBC [Molar ratio] 32.7 % Normal 15.0-57.0 [facility] Comment on above: Order Comment: Speci men Type: BLOOD SPECIMEN Ordering Facility: [facility] Address: [address] Performed By: #### 2 4323-8, 96899-9, 2275-4, 8 #### [facility] CLIA [id number] [address] [place] [address] [place] Lipid 1996 panelon 3 Cholesterol [Mass/Vol] 213 mg/dL High <200 [facility] Comment on above: Order Comment: Speci men Type: BLOOD SPECIMEN Ordering Facility: [facility] Address: [address] Result Comment: <200 mg/dL, Desirable 200-239 mg/dL, Borderline high >239 mg/dL, High Performed By: #### 2 4323-8, 71508-2, 2275-4, 8 #### [facility] CLIA [id number] [facility] [place] [address] [place] Cholesterol in HDL [Mass/Vol] 73 mg/dL Normal >39 [facility] Comment on above: Order Comment: Ciara levine Type: BLOOD SPECIMEN Ordering Facility: [facility] Address: [address] [id number] Result Comment: 40-5 9 mg/dL, Acceptable >59 mg/dL, High: Negative risk factor for coronary heart disease <40 mg/dL, Low: Positive risk factor for coronary heart disease Performed By: #### 2 4323-8, 58093-2, 2275-4, 2283-8 #### [facility] CLIA [id number] [address] [place] [address] [place] Cholesterol in LDL [Mass/Vol] 129 mg/dL High <100 [facility] Comment on above: Order Comment: Ciara levine Type: BLOOD SPECIMEN Ordering Facility: [facility] Address: [address] [place] [address] Result Comment: <100 mg/dL, Optimal 100-129 mg/dL, Near optimal/above optimal 130-159 mg/dL, Borderline high 160-189 mg/dL, High >189 mg/dL, Very high Secondary prevention optimal LDL Cholesterol levels are recommended to be < 70 mg/dL Performed By: #### 2 4323-8, 57309-5, 2275-4, 8 #### [facility] CLIA [id number] [address] [place] [address] [place] Cholesterol in LDL/Cholesterol in HDL [Mass ratio] 1.77 {ratio} Normal <2.54 [facility] Comment on above: Order Comment: Ciara levine Type: BLOOD SPECIMEN Ordering Facility: [facility] Address: [address] [place] [address] Result Comment: Refe rence: 1. National Cholesterol Education Program ATP III Guideline At-A-Glance Quick Desk Reference: National Heart, Lung, and Blood [place]. National Institutes of Health. 2001: NIH Publication No. 01-3305. 2. An International Atherosclerosis Society position paper: global recommendations for the management of dyslipidemia: executive summary, Atherosclerosis. 2014: 232(2):410-413. Performed By: #### 2 4323-8, 12958-9, 2275-4, 8 #### [facility] CLIA [id number] [address] [place] [address] [place] Cholesterol in VLDL [Mass/Vol] 11 mg/dL Normal <30 [facility] Comment on above: Order Comment: Speci men Type: BLOOD SPECIMEN Ordering Facility: [facility] Address: [address] [address] Performed By: #### 2 4323-8, 04428-9, 2275-4, 8 #### [facility] CLIA [id number] [address] [place] [address] [place] Cholesterol non HDL [Mass/Vol] 140 mg/dL High <130 [facility] Comment on above: Order Comment: Speci men Type: BLOOD SPECIMEN Ordering Facility: [facility] Address: [address] [address] Result Comment: <130 mg/dL, Optimal 130-159 mg/dL, Near optimal/above optimal 160-189 mg/dL, Borderline high 190-219 mg/dL, High >219 mg/dL, Very high Secondary prevention optimal non HDL Cholesterol levels are recommended to be <100 mg/dL Performed By: #### 2 4323-8, 93165-4, 2275-4, 8 #### [facility] CLIA [id number] [address] [place] [address] [place] Cholesterol.total/C holesterol in HDL [Mass ratio] 2.92 {ratio} Normal <5.10 [facility] Comment on above: Order Comment: Speci men Type: BLOOD SPECIMEN Ordering Facility: [facility] Address: [address] [place] [address] Performed By: #### 2 4323-8, 73443-8, 2275-4, 8 #### [facility] CLIA [id number] [address] [id number] [place] FASTING TIME 12 hrs Normal [facility] Comment on above: Order Comment: Speci men Type: BLOOD SPECIMEN Ordering Facility: [facility] Address: [address] [place] [address] Performed By: #### 2 4323-8, 83117-8, 2275-4, 8 #### [facility] CLIA [id number] [address] [place] [address] [place] Triglyceride [Mass/Vol] 54 mg/dL Normal <150 [facility] Comment on above: Order Comment: Speci men Type: BLOOD SPECIMEN Ordering Facility: [facility] Address: [address] [place] [address] Result Comment: <150 mg/dL, Normal 150-199 mg/dL, Borderline high 200-499 mg/dL, High >499 mg/dL, Very high Performed By: #### 2 4323-8, 37175-9, 4, 8 #### [facility] CLIA [id number] [address] [place] [address] [place] Magnesium SerPl-mCncon 07-20 Magnesium [Mass/Vol] 2.4 mg/dL High 1.7-2.3 [facility] Comment on above: Order Comment: Speci men Type: BLOOD SPECIMEN Ordering Facility: [facility] Address: [address] [place] [address] Performed By: #### 2 4323-8, 81842-0, 4, 8 #### [facility] CLIA [id number] [address] [place] [address] [place] T3Free SerPl-mCncon 07-21-19 23 Free T3 [Mass/Vol] 7.4 pg/mL High 2.3-4.1 [facility] Comment on above: Order Comment: Speci men Type: BLOOD SPECIMEN Ordering Facility: [facility] Address: [address] [place] [address] Performed By: #### 2 4323-8, 04982-6, 2276-4, 2284-8 #### [facility] CLIA [id number] [address] [id number] [place] T4 Free SerPl-mCncon 023 Free T4 [Mass/Vol] 1.3 ng/dL Normal 0.9-1.7 [facility] Comment on above: Order Comment: Speci men Type: BLOOD SPECIMENOrdering Facility: [facility] Address: [address] [place] [address] Performed By: #### 1 9123-9, 6-4, 3024-7, 3016-3 ####[facility] [id number] [place] [address] [place] TSH SerPl-aCncon 07-20-2022 TSH Qn 1.280 m[IU]/L Normal 0.270-4.200 [facility] Comment on above: Order Comment: Speci men Type: BLOOD SPECIMENOrdering Facility: [facility] Address: [address] [place] [address] Performed By: #### 1 9123-9, 6-4, 3024-7, 3016-3 ####[facility] [id number] [place] [address] [place] VITAMIN Con 07-20-2022 VITAMIN C 59 umol/L Normal 23-114 [facility] Comment on above: Order Comment: Speci men Type: BLOOD SPECIMEN Ordering Facility: [facility] Address: [address] [place], [place] [address] Result Comment: INTE RPRETIVE DATA: Vitamin C [...] developed and its performance characteristics determined by [facility]. It has not been cleared or approved by the US Food and Drug Administration. This test was performed in a CLIA certified laboratory and is intended for clinical purposes. Performed By: [facility] [address] [place] [address] Apprentice: Steve Rios MD, PhD Performed By: #### 2 4323-8, 73159-3, 2276-4, 2284-8 #### [facility] CLIA [id number] [address] [place] [address] [place] Vit B12 SerPl-mCncon 023 Cobalamin (Vitamin B12) [Mass/Vol] 1429 pg/mL High 232-1245 [facility] Comment on above: Order Comment: Speci men Type: BLOOD SPECIMEN Ordering Facility: [facility] Address: [address] [place] [address] Performed By: #### 2 4323-8, 84953-6, 6-4, 2283-8 #### [facility] CLIA [id number] [address] [place] [address] [place] CNOVon 07-19-2022 CNOV Office Visit (FAMPWS ) HENRY OLIVEIRA ([id number]) 1955 F Date Time Provider Department 07/19/22 9:00 AM SHIN ARIAS FAMPWS During your visit today, we recorded the following information about you: Temperature Pulse Respiration Blood pressure 98.5 degrees 72/minute 16/minute 138/82 Weight 59.9 kg Shin Arias DO 07/19/2022 5:20 PM Signed CC: Henry Israel Oliveira is a 66 year old female who presents to the office for follow up HPI: Right ankle and foot pain, was told needs to wear a Boot then x-rays then likely brace for right ankle tendinitis, seen by [facility], no surgery needed at this time. Going to have metal fillings removed from her mouth. Feels that this is affecting her health Mood, feels she is managing well with being off the Prozac medication, doesn't feel she needs anything at this time. Has good foundation with jew and jew friends as well. Hypothyroidism, taking her armour thyroid medication, cost is expensive, doesn't want to be on synthetic medication. Hair is thinning, + chronic fatigue + shortness of breath, mostly at jew when she is trying to sing or [...] Hyperlipidemia Hypothyroidism 2010 [facility] on CPAP DME [facility] Peripheral vascular disease, unspecified (HCC) [...] repair Current Outpatient Medications Medication Sig omega 5-jfi-uuz-fish oil (FISH OIL) 100-160-1,000 mg cap Take [...] non-toxic a (more content not included)... [facility] (FAMPWS) HENRY OLIVEIRA ([id number]) 1955 F Date Time Provider Department 07/19/22 [facility] visit today, we recorded the following information about you: Neri Robles LPN 07/19/2022 3:18 PM Signed Pt calling office to request a 1 month supply of [place] thyroid to be sent to [facility] in [place]. Rx pending. Please review and advise. Neri Gustafson APRN.[facility] 07/21/2022 2:21 PM Signed The following approved medication requests have been transmitted electronically. Requested Prescriptions Signed Prescriptions Disp Refills ARMOUR THYROID 90 mg tablet 30 tablet 0 Sig: Take 1 tablet by mouth once daily. Authorizing Provider: JOSSY GUSTAFSON APRN.[facility] Jaz Hollori 07/21/2022 3:49 PM Signed [employer] message [place] Allergies As of Date: 07/19/2022 Noted Allergy Reaction BACTRIM (SULFAMETHOXAZOLE) 05/23/2014 4 - Hives MORPHINE SULFATE 03/30/2005 9 - Itching TEA TREE OIL 07/22/2009 2 - Rash Date Reviewed: 06/06/2022 Reviewed by: Jossy Gustafson APRN.[facility] - Fully Assessed Reason for Visit: Medication Question [4688] Order(s):ARMOUR THYROID 90 mg tabletTake 1 tablet by mouth once daily.Disp: 30 tabletRfl: 0 Prescriptions as of 07/21/2022 - ARMOUR THYROID 90 mg tablet Take 1 tablet by mouth once daily. - dextroamphetamine-amph etamine (ADDERALL) 10 mg tablet Take 0.5-1 tablets by mouth once daily for 30 days. - omega 2-sui-nji-fish oil (FISH OIL) 100-160-1,000 mg cap Take [...] stress [F43.9] (more content not included)... Normal [facility] Hepatic function 2000 panelo n 05-20-2022 Albumin [Mass/Vol] 3.9 g/dL 3.9 - 4.9 g/dL [facility] ALP [Catalytic activity/Vol] 99 U/L 34 - 123 U/L [facility] ALT [Catalytic activity/Vol] 15 U/L 7 - 38 U/L [facility] AST [Catalytic activity/Vol] 21 U/L 13 - 35 U/L [facility] Bilirubin [Mass/Vol] 0.2 mg/dL 0.2 - 1.3 mg/dL [facility] Bilirubin.conjugate d [Mass/Vol] <0.2 mg/dL [facility] Protein [Mass/Vol] 6.6 g/dL 6.3 - 8.0 g/dL [facility] Influenza virus A and B RNA and SARS-CoV-2 (COVID-19) N gene panel TAYLER+probe (Resp)on 05-20-2022 FLUAV RNA TAYLER+probe Ql (Unsp spec) Negative Negative for Influenza A by RT-PCR [facility] FLUBV RNA TAYLER+probe Ql (Unsp spec) Negative Negative for Influenza B by RT-PCR [facility] SARS-CoV-2 (COVID-19) RNA TAYLER+probe Ql (Resp) SARS-CoV-2 (Agent of COVID-19) Not Detected by RT-PCR or equivalent method. Not Detected [facility] CBC W Auto Differential pane l (Bld)on 05-19-2022 Basophils (Bld) [#/Vol] 0.03 10*3/uL <0.11 k/uL [facility] Basophils/100 WBC (Bld) 0.5 % [facility] Differential cell count method Nom (Bld) Auto [facility] Eosinophils (Bld) [#/Vol] 0.08 10*3/uL <0.46 k/uL [facility] Eosinophils/100 WBC (Bld) 1.4 % [facility] Erythrocyte distribution width (RBC) [Ratio] 11.5 % 11.5 - 15.0 % [facility] Hematocrit (Bld) [Volume fraction] 40.3 % 36.0 - 46.0 % [facility] Hemoglobin (Bld) [Mass/Vol] 13.4 g/dL 11.5 - 15.5 g/dL [facility] Immature granulocytes (Bld) [#/Vol] <0.10 k/uL [facility] Immature granulocytes/100 WBC (Bld) 0.3 % [facility] Lymphocytes (Bld) [#/Vol] 1.92 10*3/uL 1.00 - 4.00 k/uL [facility] Lymphocytes/100 WBC (Bld) 33.3 % [facility] MCH (RBC) [Entitic mass] 29.8 pg 26.0 - 34.[address] [facility] MCHC (RBC) [Mass/Vol] 33.3 g/dL 30.5 - 36.0 g/dL [facility] MCV (RBC) [Entitic vol] 89.6 fL 80.0 - 100.[address] [facility] Monocytes (Bld) [#/Vol] 0.30 10*3/uL <0.87 k/uL [facility] Monocytes/100 WBC (Bld) 5.2 % [facility] Neutrophils (Bld) [#/Vol] 3.41 10*3/uL 1.45 - 7.50 k/uL [facility] Neutrophils/100 WBC (Bld) 59.3 % [facility] Nucleated RBC (Bld) [#/Vol] <0.01 k/uL [facility] Nucleated RBC/100 WBC (Bld) [Ratio] 0.0 /[address] [facility] Platelet mean volume (Bld) [Entitic vol] 10.4 fL 9.0 - 12.[address] [facility] Platelets (Bld) [#/Vol] 206 10*3/uL 150 - 400 k/uL [facility] RBC (Bld) [#/Vol] 4.50 10*6/uL 3.90 - 5.2 0 m/uL [facility] WBC (Bld) [#/Vol] 5.76 10*3/uL 3.70 - 11. 00 k/uL [facility] XR FOOT LEFT 3 VIEWSon 07-29 [...] surgery at the second PIP joint Normal [facility] XR FOOT RIGHT 3 VIEWSon 07-13 [...] joint osteoarthritis No acute osseous abnormality Normal [facility] XR Foot - left 3 Viewson [...] The calcaneal inclination angle is 16 degrees Andria Aranda D O - 07/29/2021 EXAM: XR FOOT [...] prior surgery at the second PIP joint [facility] Rad[facility] Study observation (narrative) [facility] XR Foot - right 3 Viewson IMPRESSION: [...] interphalangeal joint osteoarthritis No acute osseous abnormality [facility] Radiology Study observation (narrative) [facility] XR Foot - right 3 ViewsOrder ed By: Andria Bermudez on 07-29-2021 [facility] Work Phone: Vital Signs Date Time Vital Sign Value Performing Clinician Gisell benavides 01-25-2023 15:35-0400 Body temperature 98.8 [degF] Chris Rendon MD Work Phone: [facility] 01-25-2023 15:35-0400 Body weight 56.25 kg Chris Rendon MD Work Phone: [facility] 01-25-2023 15:35-0400 Diastolic blood pressure 80 mm[Hg] Chris Rendon MD Work Phone: [facility] 01-25-2023 15:35-0400 Heart rate 58 /min Chris Rendon MD Work Phone: [facility] 01-25-2023 15:35-0400 Respiratory rate 16 /min Chris Rendon MD Work Phone: [facility] 01-25-2023 15:35-0400 SaO2% (BldA) [Mass fraction] 98 % Chris Rendon MD Work Phone: [facility] 01-25-2023 15:35-0400 Systolic blood pressure 120 mm[Hg] Chris Rendon MD Work Phone: [facility] 12-26-2022 07:59-0400 Body weight 55.79 kg NA Leyva PA-C Work Phone: [facility] 12-26-2022 07:59-0400 Diastolic blood pressure 60 mm[Hg] NA Leyva PA-C Work Phone: [facility] 12-26-2022 07:59-0400 Heart rate 67 /min NA Leyva PA-C Work Phone: [facility] 12-26-2022 07:59-0400 Respiratory rate 16 /min NA Leyva PA-C Work Phone: [facility] 12-26-2022 07:59-0400 SaO2% (BldA) [Mass fraction] 97 % NA Leyva PA-C Work Phone: [facility] 12-26-2022 07:59-0400 Systolic blood pressure 110 mm[Hg] NA Leyva PA-C Work Phone: [facility] 11-25-2022 13:59-0400 Body weight 57.61 kg NA Leyva PA-C Work Phone: [facility] 11-25-2022 13:59-0400 Diastolic blood pressure 68 mm[Hg] NA Leyva PA-C Work Phone: [facility] 11-25-2022 13:59-0400 Heart rate 87 /min NA Leyva PA-C Work Phone: [facility] 11-25-2022 13:59-0400 Respiratory rate 16 /min NA Leyva PA-C Work Phone: [facility] 11-25-2022 13:59-0400 SaO2% (BldA) [Mass fraction] 100 % NA Leyva PA-C Work Phone: [facility] 11-25-2022 13:59-0400 Systolic blood pressure 116 mm[Hg] JOSEFINA Leyva PA-C Work Phone: [facility] 10-19-2022 08:29-0400 Body temperature 98.2 [degF] Shin Arias DO Work Phone: [facility] 10-19-2022 08:29-0400 Body weight 58.51 kg Shin Arias DO Work Phone: [facility] 10-19-2022 08:29-0400 Diastolic blood pressure 74 mm[Hg] Shin Arias DO Work Phone: [facility] 10-19-2022 08:29-0400 Heart rate 64 /min Shin Arias DO Work Phone: [facility] 10-19-2022 08:29-0400 Respiratory rate 16 /min Shin Arias DO Work Phone: [facility] 10-19-2022 08:29-0400 Systolic blood pressure 130 mm[Hg] Shin Arias DO Work Phone: [facility] 08-10-2022 11:05-0400 Body temperature 98.4 [degF] Shin Arias DO Work Phone: [facility] 08-10-2022 11:05-0400 Body weight 58.06 kg Shin Arias DO Work Phone: [facility] 08-10-2022 11:05-0400 Diastolic blood pressure 80 mm[Hg] Shin Arias DO Work Phone: [facility] 08-10-2022 11:05-0400 Heart rate 88 /min Shin Arias DO Work Phone: [facility] 08-10-2022 11:05-0400 Respiratory rate 16 /min Shin Arias DO Work Phone: [facility] 08-10-2022 11:05-0400 Systolic blood pressure 120 mm[Hg] Shin Arias DO Work Phone: [facility] 07-20-2022 09:10-0500 Body height 160.5 cm Pulm Wstr Work Phone: [facility] 07-20-2022 09:10-0500 Body weight 58.06 kg Pulm Wstr Work Phone: [facility] 07-20-2022 09:10-0500 Heart rate 70 /min Pulm Wstr Work Phone: [facility] 07-20-2022 09:10-0500 Respiratory rate 14 /min Pulm Wstr Work Phone: [facility] 07-20-2022 09:10-0500 SaO2% (BldA) [Mass fraction] 99 % Pulm Wstr Work Phone: [facility] 07-19-2022 08:54-0500 Body temperature 98.49 [degF] Shin Airas DO Work Phone: [facility] 07-19-2022 08:54-0500 Body weight 59.88 kg Shin Arias DO Work Phone: [facility] 07-19-2022 08:54-0500 Diastolic blood pressure 82 mm[Hg] Shin Arias DO Work Phone: [facility] 07-19-2022 08:54-0500 Heart rate 72 /min Shin Arias DO Work Phone: [facility] 07-19-2022 08:54-0500 Respiratory rate 16 /min Shin Arias DO Work Phone: [facility] 07-19-2022 08:54-0500 Systolic blood pressure 138 mm[Hg] Shin Arias DO Work Phone: [facility] 06-06-2022 10:10-0500 Body weight 59.33 kg Jossy Gustafson SHEET ROCK APPLICATOR.SEARCH DIRECTOR Work Phone: [facility] 06-06-2022 10:10-0500 Diastolic blood pressure 60 mm[Hg] Jossy Gustafson SHEET ROCK APPLICATOR.SEARCH DIRECTOR Work Phone: [facility] 06-06-2022 10:10-0500 Heart rate 62 /min Jossy Gustafson SHEET ROCK APPLICATOR.SEARCH DIRECTOR Work Phone: [facility] 06-06-2022 10:10-0500 Respiratory rate 14 /min Jossy Gustafson SHEET ROCK APPLICATOR.SEARCH DIRECTOR Work Phone: [facility] 06-06-2022 10:10-0500 Systolic blood pressure 120 mm[Hg] Jossy Gustafson SHEET ROCK APPLICATOR.SEARCH DIRECTOR Work Phone: [facility] 05-19-2022 13:35-0500 Body temperature 98.91 [degF] NA Leyva PA-C Work Phone: [facility] 05-19-2022 13:35-0500 Body weight 59.42 kg NA Leyva PA-C Work Phone: [facility] 05-19-2022 13:35-0500 Diastolic blood pressure 70 mm[Hg] NA Leyva PA-C Work Phone: [facility] 05-19-2022 13:35-0500 Heart rate 70 /min NA Leyva PA-C Work Phone: [facility] 05-19-2022 13:35-0500 Respiratory rate 14 /min NA Leyva PA-C Work Phone: [facility] 05-19-2022 13:35-0500 SaO2% (BldA) [Mass fraction] 99 % NA Leyva PA-C Work Phone: [facility] 05-19-2022 13:35-0500 Systolic blood pressure 128 mm[Hg] NA Leyva PA-C Work Phone: [facility] 05-10-2022 16:40-0500 Body weight 60.78 kg NA Leyva PA-C Work Phone: [facility] 05-10-2022 16:40-0500 Diastolic blood pressure 58 mm[Hg] NA Leyva PA-C Work Phone: [facility] 05-10-2022 16:40-0500 Heart rate 98 /min NA Leyva PA-C Work Phone: [facility] 05-10-2022 16:40-0500 Respiratory rate 16 /min NA Leyva PA-C Work Phone: [facility] 05-10-2022 16:40-0500 SaO2% (BldA) [Mass fraction] 97 % NA Leyva PA-C Work Phone: [facility] 05-10-2022 16:40-0500 Systolic blood pressure 118 mm[Hg] NA Leyva PA-C Work Phone: [facility] 04-19-2022 09:47-0500 Body temperature 97.81 [degF] Shin Arias DO Work Phone: [facility] 04-19-2022 09:47-0500 Body weight 61.24 kg Shin Arias DO Work Phone: [facility] 04-19-2022 09:47-0500 Diastolic blood pressure 80 mm[Hg] Shin Arias DO Work Phone: [facility] 04-19-2022 09:47-0500 Heart rate 64 /min Shin Arias DO Work Phone: [facility] 04-19-2022 09:47-0500 Respiratory rate 16 /min Shin Arias DO Work Phone: [facility] 04-19-2022 09:47-0500 Systolic blood pressure 138 mm[Hg] Shin Arias DO Work Phone: [facility] 01-21-2022 12:03-0400 Body height 158.8 cm Shin Arias DO Work Phone: [facility] 01-21-2022 12:03-0400 Body temperature 98.2 [degF] Shin Arias DO Work Phone: [facility] 01-21-2022 12:03-0400 Body weight 61.24 kg Shin Arias DO Work Phone: [facility] 01-21-2022 12:03-0400 Diastolic blood pressure 70 mm[Hg] Shin Arias DO Work Phone: [facility] 01-21-2022 12:03-0400 Heart rate 76 /min Shin Arias DO Work Phone: [facility] 01-21-2022 12:03-0400 Respiratory rate 16 /min Shin Arias DO Work Phone: [facility] 01-21-2022 12:03-0400 Systolic blood pressure 120 mm[Hg] Shin Arias DO Work Phone: [facility] 10-22-2021 16:03-0400 Body temperature 98.91 [degF] Shin Arias DO Work Phone: [facility] 10-22-2021 16:03-0400 Body weight 60.78 kg Shin Arias DO Work Phone: [facility] 10-22-2021 16:03-0400 Diastolic blood pressure 60 mm[Hg] Shin Arias DO Work Phone: [facility] 10-22-2021 16:03-0400 Heart rate 64 /min Shin Arias DO Work Phone: [facility] 10-22-2021 16:03-0400 Respiratory rate 16 /min Shin Arias DO Work Phone: [facility] 10-22-2021 16:03-0400 Systolic blood pressure 120 mm[Hg] Shin Arias DO Work Phone: [facility] Encounters Encounter Date Encounter Type Care Provider Facility Start: 07-15-2023 Telephone encounter Shin Huber arrison DO Work Phone: [facility] [place] Start: 07-06-2023 Telephone encounter Shin Mckeon Cecile arrison DO Work Phone: [facility] Start: 06-23-2023 Refill Shin Preston son DO Work Phone: [facility] Comment on above: Refill Request Start: 06-20-2023 End: 06-20-2023 ambulatory Shin Arias Facility:[facility] Start: 05-17-2023 ambulatory Shin Preston son DO Work Phone: [facility] [place] Start: 05-04-2023 ambulatory Pcp (Historical) [facility] Start: 05-03-2023 End: 05-04-2023 ambulatory SHIN ARIAS Facility:[facility] Start: 04-11-2023 Refill Shin ortiz DO Work Phone: [facility] Comment on above: Refill Request Start: 02-16-2023 Refill Shin ortiz DO Work Phone: [facility] Comment on above: Refill Request Start: 01-26-2023 Telephone encounter Lida Garcia APRN.CNP Work Phone: [facility] Comment on above: Results Start: 01-25-2023 End: 01-25-2023 ambulatory SHIN ARIAS Facility:[facility] Start: 01-25-2023 End: 01-25-2023 Patient encounter procedure Chris Rendon MD Work Phone: [facility] Comment on above: Sore throat (Primary Dx); Influenza-like illness Start: 12-26-2022 End: 12-27-2022 ambulatory CARL LEYVA Facility:[facility] Start: 12-26-2022 End: 12-26-2022 Patient encounter procedure Alivia Leyva PA-C Work Phone: [facility] Comment on above: Situational insomnia ; Anxiety with depression Start: 12-24-2022 Refill Shin ortiz DO Work Phone: [facility] Comment on above: Refill Request Start: 11-25-2022 End: 11-25-2022 ambulatory CARL LEYVA Facility:[facility] Start: 11-25-2022 End: 11-25-2022 Patient encounter procedure Alivia Leyva PA-C Work Phone: [facility] Comment on above: Adjustment insomnia (Primary Dx); Anxiety with depression; Hx of ischemic vertebrobasilar artery cerebellar stroke Start: 10-19-2022 End: 10-19-2022 ambulatory SHIN ARIAS Facility:[facility] Start: 10-19-2022 End: 10-19-2022 Patient encounter procedure Shin Reavesrison DO Work Phone: [facility] [place] Comment on above: Elevated ferritin (P rimary Dx); Rash and nonspecific skin eruption; Elevated alkaline phosphatase level; Dermatitis contact; Hypothyroidism, unspecified type; Dyslipidemia; Mood disorder (HCC); Fatigue, unspecified type; Hyperglycemia Start: 10-14-2022 End: 10-15-2022 ambulatory SHIN L ARIAS Facility:[facility] Start: 10-05-2022 End: 10-06-2022 ambulatory SHIN L ARIAS Facility:[facility] Start: 10-05-2022 End: 10-05-2022 ambulatory SHIN L ARIAS Facility:[facility] Start: 08-10-2022 End: 08-10-2022 ambulatory SHIN L ARIAS Facility:[facility] Start: 08-10-2022 End: 08-10-2022 Patient encounter procedure Shin Reavesrison DO Work Phone: [facility] [place] Comment on above: Dermatitis contact ( Primary Dx); Hypothyroidism, unspecified type Start: 08-09-2022 Telephone encounter Shin Huber arrison DO Work Phone: [facility] [place] Comment on above: Appointment Start: 08-03-2022 Telephone encounter Shin Huber arrison DO Work Phone: [facility] [place] Comment on above: Results Medication Problem Start: 07-29-2022 End: 07-30-2022 ambulatory SHIN L ARIAS Facility:[facility] Start: 07-22-2022 Telephone encounter Shin Linda G arrison DO Work Phone: [facility] [place] Comment on above: Results Start: 07-20-2022 End: 07-21-2022 ambulatory Pulm Lab [facility] Work Phone: PULM [facility] Comment on above: Spirometry Start: 07-20-2022 End: 07-20-2022 Patient encounter procedure Pulm [facility] Work Phone: [place] [facility] [place] Start: 07-19-2022 Telephone encounter Shin Huber arrison DO Work Phone: [facility] Comment on above: Medication Question Start: 07-19-2022 End: 07-19-2022 ambulatory SHIN NICOLASON Facility:[facility] Start: 07-19-2022 End: 07-19-2022 Patient encounter procedure Shin Arias DO Work Phone: [facility] Comment on above: Dyslipidemia (Primar y Dx); Hair thinning; Fatigue, unspecified type; Tendinitis of right ankle; SOB (shortness of breath); Hypothyroidism, unspecified type; Screening for colon cancer; Concentration deficit; Anxiety with depression Start: 06-21-2022 Refill Shin ortiz DO Work Phone: [facility] Comment on above: Refill Request Start: 06-17-2022 Refill Shin ortiz DO Work Phone: [facility] Comment on above: Refill Request Start: 06-07-2022 Telephone encounter Jossy ortiz SHEET ROCK APPLICATOR.SEARCH DIRECTOR Work Phone: [facility] Comment on above: Results Start: 06-06-2022 End: 06-06-2022 Patient encounter procedure Jossy Gustafson SHEET ROCK APPLICATOR.SEARCH DIRECTOR Work Phone: [facility] Comment on above: Right ankle swelling (Primary Dx); Encounter for screening for osteoporosis; Encounter for screening mammogram for malignant neoplasm of breast Start: 05-19-2022 End: 05-19-2022 Patient encounter procedure Alivia Leyva PA-C Work Phone: [facility] Comment on above: Flu-like symptoms (P rimary Dx); Elevated alkaline phosphatase level Start: 05-17-2022 Refill Shin Preston son DO Work Phone: [facility] Comment on above: Refill Request Start: 05-11-2022 Telephone encounter Shin Huber jatin DO Work Phone: [facility] Comment on above: requesting orders fo r stress test Start: 05-10-2022 End: 05-10-2022 Refill Shin Nicolason DO Work Phone: [facility] Comment on above: Refill Request Vasovagal symptom (P rimary Dx); Elevated alkaline phosphatase level; Hypothyroidism, unspecified type; Hyperglycemia; Mood disorder (HCC); Anxiety with depression; Hx of ischemic vertebrobasilar artery cerebellar stroke; Occlusion and stenosis of right vertebral artery; Stenosis of left vertebral artery Start: 05-03-2022 Telephone encounter Shin Linda steiner DO Work Phone: [facility] Comment on above: Results; Appointment Start: 04-19-2022 End: 04-19-2022 Patient encounter procedure Shin Arias DO Work Phone: [facility] Comment on above: Vitamin B12 deficien cy (Primary Dx); Vitamin D deficiency; Dyslipidemia; Hypothyroidism, unspecified type; Elevated alkaline phosphatase level; Chronic right shoulder pain; Chronic pain of right ankle Start: 03-15-2022 Refill Shin ortiz DO Work Phone: [facility] Comment on above: Refill Request Start: 01-21-2022 End: 01-21-2022 Patient encounter procedure Shin Arias DO Work Phone: [facility] Comment on above: Age-related cataract of both eyes, unspecified age-related cataract type (Primary Dx); Double vision; Vitamin B12 deficiency; Vitamin D deficiency; Hypothyroidism, unspecified type; Dyslipidemia; Hyperglycemia; Anxiety with depression Start: 01-19-2022 Refill Shin ortiz DO Work Phone: [facility] Comment on above: Refill Request Start: 12-31-2021 Refill Jossy monae APRN.SEARCH DIRECTOR Work Phone: [facility] Comment on above: Refill Request Start: 11-25-2021 Refill Shin ortiz DO Work Phone: [facility] Comment on above: Refill Request Start: 11-10-2021 ambulatory Shin ortiz DO Work Phone: [facility] [place] Start: 10-22-2021 End: 10-22-2021 Patient encounter procedure Shin Arias DO Work Phone: [facility] Comment on above: Anxiety with depress ion (Primary Dx); Mood disorder (HCC); Concentration deficit; Hypothyroidism, unspecified type; Vitamin B12 deficiency; Vitamin D deficiency; Fatigue, unspecified type; Dyslipidemia Start: 10-08-2021 Refill Shin Preston son DO Work Phone: [facility] Comment on above: Refill Request Start: 09-06-2021 Refill Shin ortiz DO Work Phone: [facility] Comment on above: Refill Request Start: 08-09-2021 Refill Jossy monae SHEET ROCK APPLICATOR.SEARCH DIRECTOR Work Phone: [facility] Start: 07-29-2021 ambulatory SAID A ATWAY Facility:[facility] Start: 07-29-2021 End: 07-29-2021 Office outpatient new 30 minutes Said A Atway DPM Work Phone: [facility] Comment on above: Bilateral foot pain (Primary Dx) Start: 07-22-2021 ambulatory SHIN ARIAS Facil ity:[facility] Start: 06-28-2021 Telephone encounter Shin steiner DO Work Phone: [facility] Comment on above: Medication Problem Start: 07-25-2018 Patient encounter status Aleah Chahal SHEET ROCK APPLICATOR.SEARCH DIRECTOR Work Phone: [facility] Work Phone: Start: 08-17-2017 Ambulatory SHIN SCHWARTZ Facil ity:[facility] Procedures Date Procedure Procedure Detail Performing Clinician Start: 01-25-2023 COVID & INFLUENZA A/ B NAAT, ROUTINE Chris Rendon MD Work Phone: Start: 01-25-2023 STREP A MOLECULAR (POC) Latanya Seaman PASubhash Work Phone: Start: 10-14-2022 Lipid 1996 panel - S zen or Plasma Chris Rendon MD Work Phone: Start: 07-20-2022 Brncdilat rspse spmt ry pre&post-brncdilat admn Shin Arias DO Work Phone: Start: 05-19-2022 COVID WITH FLUA+B, ROUTINE M Thien Leyva PA-C Work Phone: Start: 11-20-2018 Mammography Jossy murray SHEET ROCK APPLICATORMontezSEARCH DIRECTOR Work Phone: Start: 10-01-2018 Lipid 1996 panel - S zen or Plasma Said Atway DPM Work Phone: Plan of Treatment Date Care Activity Detail Author Start: 10-22-2029 Urine microalbumin profile DTa P,Tdap,Td Vaccine (3 - Td or Tdap) [facility] Start: 10-15-2027 Lipid 1996 panel - S zen or Plasma Lipid Screening [facility] Start: 10-15-2027 Lipid panel Lipid Screening [facility] Start: 10-15-2027 L[address] S[address]EN LIPID SCREEN [facility] Start: 07-21-2027 LIPID SCREEN LIPID SCREEN [facility] Start: 04-19-2027 LIPID SCREEN LIPID SCREEN [facility] Start: 01-28-2027 LIPID SCREEN LIPID SCREEN [facility] Start: 10-26-2026 LIPID SCREEN LIPID SCREEN [facility] Start: 06-30-2026 LIPID SCREEN LIPID SCREEN [facility] Start: 10-14-2025 DIABETES SCREEN DIABETES SCREEN [facility] Start: 10-14-2025 Diabetes Screening Diabetes Screenin g [facility] Start: 07-20-2025 DIABETES SCREEN DIABETES SCREEN [facility] Start: 04-19-2025 DIABETES SCREEN DIABETES SCREEN [facility] Start: 01-28-2025 DIABETES SCREEN DIABETES SCREEN [facility] Start: 10-26-2024 DIABETES SCREEN DIABETES SCREEN [facility] Start: 07-13-2024 Annual PCP Team Associate Business Analyst paulie Disease Visit Annual PCP Team Chronic Disease Visit [facility] Start: 06-30-2024 DIABETES SCREEN DIABETES SCREEN [facility] Start: 05-03-2024 Annual PCP Team Associate Business Analyst paulie Disease Visit Annual PCP Team Chronic Disease Visit [facility] Start: 05-03-2024 Covid-19 Vaccine (#1) Covid-19 Vacci ne (#1) [facility] Comment on above: Postponed from 03/12 (Declined at this time) Start: 12-27-2023 ANNUAL PCP TEAM EQUIPMENT COORDINATOR PAULIE DISEASE VISIT ANNUAL PCP TEAM CHRONIC DISEASE VISIT [facility] Start: 11-26-2023 ANNUAL PCP TEAM EQUIPMENT COORDINATOR PAULIE DISEASE VISIT ANNUAL PCP TEAM CHRONIC DISEASE VISIT [facility] Start: 11-12-2023 Influenza vaccination Influenza Vacc ine (#1) [facility] Comment on above: Postponed from 01/13 (Declined at this time) Start: 10-20-2023 ANNUAL PCP TEAM EQUIPMENT COORDINATOR PAULIE DISEASE VISIT ANNUAL PCP TEAM CHRONIC DISEASE VISIT [facility] Start: 10-02-2023 Fasting lipid profile LIPID SCREENIN [facility] Start: 08-11-2023 ANNUAL PCP TEAM EQUIPMENT COORDINATOR PAULIE DISEASE VISIT ANNUAL PCP TEAM CHRONIC DISEASE VISIT [facility] Start: 07-29-2023 COLORECTAL CANCER SCREENING COLORECTAL CANCER SCREENING [facility] Start: 07-29-2023 FECAL OCCULT BLOOD FECAL OCCULT BLOO D [facility] Start: 07-29-2023 Screening for malign ant neoplasm of colon [facility] Start: 07-20-2023 ANNUAL PCP TEAM EQUIPMENT COORDINATOR PAULIE DISEASE VISIT ANNUAL PCP TEAM CHRONIC DISEASE VISIT [facility] Start: 06-06-2023 ANNUAL PCP TEAM EQUIPMENT COORDINATOR PAULIE DISEASE VISIT ANNUAL PCP TEAM CHRONIC DISEASE VISIT [facility] Start: 06-06-2023 Pneumococcal Vaccine : 65+ (1 - PCV) Pneumococcal Vaccine: 65+ (1 - PCV) [facility] Comment on above: Postponed from 09/10 (Declined at this time) Start: 06-06-2023 Pneumococcal Vaccine : 65+ (1 of 1 - PCV) Pneumococcal Vaccine: 65+ (1 of 1 - PCV) [facility] Comment on above: Postponed from 09/10 (Declined at this time) Start: 06-06-2023 PNEUMOCOCCAL: 65+ (1 - PCV) PNEUMOCOCCAL: 65+ (1 - PCV) [facility] Comment on above: Postponed from 09/10 (Declined at this time) Start: 06-06-[address] [facility] Comment on above: Postponed from 08/03 (Declined at this time) Start: 05-19-2023 ANNUAL PCP TEAM EQUIPMENT COORDINATOR PAULIE DISEASE VISIT ANNUAL PCP TEAM CHRONIC DISEASE VISIT [facility] Start: 05-10-2023 ANNUAL PCP TEAM EQUIPMENT COORDINATOR PAULIE DISEASE VISIT ANNUAL PCP TEAM CHRONIC DISEASE VISIT [facility] Start: 04-19-2023 ANNUAL PCP TEAM EQUIPMENT COORDINATOR PAULIE DISEASE VISIT ANNUAL PCP TEAM CHRONIC DISEASE VISIT [facility] Start: 01-21-2023 ANNUAL PCP TEAM EQUIPMENT COORDINATOR PAULIE DISEASE VISIT ANNUAL PCP TEAM CHRONIC DISEASE VISIT [facility] Start: 01-21-2023 COVID-19 VACCINE (#1) COVID-19 VACCI NE (#1) [facility] Comment on above: Postponed from 03/12 (Declined at this time) Start: 01-13-2023 Influenza vaccination [facility] Start: 11-11-2022 Influenza vaccination INFLUENZA (#1) [facility] Comment on above: Postponed from 01/13 (Declined at this time) Start: 10-22-2022 ANNUAL PCP TEAM EQUIPMENT COORDINATOR PAULIE DISEASE VISIT ANNUAL PCP TEAM CHRONIC DISEASE VISIT [facility] Start: 07-19-2022 End: 09-18-2022 25-hydroxyvitamin D3 [Mass/volume] in Serum or Plasma VITAMIN D 25 HYDROXY Lab Routine Hair thinning Fatigue, unspecified type Expected: 07/19/2022, Expires: 09/18/2022 [facility] Work Phone: Comment on above: Expected: 07/19/2022 , Expires: 09/18/2022 Start: 07-19-2022 End: 09-18-2022 Ascorbate [Mass/volume] in Serum or Plasma VITAMIN C Lab Routine Hair thinning Fatigue, unspecified type Expected: 07/19/2022, Expires: 09/18/2022 [facility] Work Phone: Comment on above: Expected: 07/19/2022 , Expires: 09/18/2022 Start: 07-19-2022 End: 09-18-2022 CBC W Auto Differential panel - Blood CBC + DIFF Lab Routine SOB (shortness of breath) Expected: 07/19/2022, Expires: 09/18/2022 [facility] Work Phone: Comment on above: Expected: 07/19/2022 , Expires: 09/18/2022 Start: 07-19-2022 End: 09-18-2022 Cobalamin (Vitamin B12) [Mass/volume] in Serum or Plasma VITAMIN B12 BLOOD Lab Routine Hair thinning Fatigue, unspecified type Expected: 07/19/2022, Expires: 09/18/2022 [facility] Work Phone: Comment on above: Expected: 07/19/2022 , Expires: 09/18/2022 Start: 07-19-2022 End: 09-18-2022 Comprehensive metabolic 2000 panel - Serum or Plasma COMP METABOLIC PANEL Lab Routine SOB (shortness of breath) Expected: 07/19/2022, Expires: 09/18/2022 [facility] Work Phone: Comment on above: Expected: 07/19/2022 , Expires: 09/18/2022 Start: 07-19-2022 End: 09-18-2022 Ferritin [Mass/volume] in Serum or Plasma FERRITIN BLD Lab Routine SOB (shortness of breath) Expected: 07/19/2022, Expires: 09/18/2022 [facility] Work Phone: Comment on above: Expected: 07/19/2022 , Expires: 09/18/2022 Start: 07-19-2022 End: 09-18-2022 Iron and Iron binding capacity panel - Serum or Plasma IRON + TIBC Lab Routine SOB (shortness of breath) Expected: 07/19/2022, Expires: 09/18/2022 [facility] Work Phone: Comment on above: Expected: 07/19/2022 , Expires: 09/18/2022 Start: 07-19-2022 End: 09-18-2022 Lipid 1996 panel - Serum or Plasma LIPID PANEL BASIC Lab Routine Dyslipidemia Expected: 07/19/2022, Expires: 09/18/2022 [facility] Work Phone: Comment on above: Expected: 07/19/2022 , Expires: 09/18/2022 Start: 07-19-2022 End: 09-18-2022 Magnesium [Mass/volume] in Serum or Plasma MAGNESIUM BLD Lab Routine Hair thinning Fatigue, unspecified type Expected: 07/19/2022, Expires: 09/18/2022 [facility] Work Phone: Comment on above: Expected: 07/19/2022 , Expires: 09/18/2022 Start: 07-19-2022 End: 09-18-2022 Thyrotropin [Units/volume] in Serum or Plasma TSH BLD Lab Routine Hypothyroidism, unspecified type Expected: 07/19/2022, Expires: 09/18/2022 [facility] Work Phone: Comment on above: Expected: 07/19/2022 , Expires: 09/18/2022 Start: 07-19-2022 End: 09-18-2022 Thyroxine (T4) free [Mass/volume] in Serum or Plasma T4 FREE/FREE THYROX Lab Routine Hypothyroidism, unspecified type Expected: 07/19/2022, Expires: 09/18/2022 [facility] Work Phone: Comment on above: Expected: 07/19/2022 , Expires: 09/18/2022 Start: 07-19-2022 End: 09-18-2022 Triiodothyronine (T3) Free [Mass/volume] in Serum or Plasma T3 FREE BLD Lab Routine Hypothyroidism, unspecified type Expected: 07/19/2022, Expires: 09/18/2022 [facility] Work Phone: Comment on above: Expected: 07/19/2022 , Expires: 09/18/2022 Start: 06-23-2022 ANNUAL PCP TEAM EQUIPMENT COORDINATOR PAULIE DISEASE VISIT ANNUAL PCP TEAM CHRONIC DISEASE VISIT [facility] Start: 05-15-2022 ADVANCE DIRECTIVE DISCUSSION ADVANCE DIRECTIVE DISCUSSION [facility] Start: 04-19-2022 End: 06-19-2022 ALK PHOS ISOENZYM BL [facility] Work Phone: Comment on above: Expected: 04/19/2022 , Expires: 06/19/2022 Start: 04-19-2022 End: 06-19-2022 Comprehensive metabolic 2000 panel - Serum or Plasma [facility] Work Phone: Comment on above: Expected: 04/19/2022 , Expires: 06/19/2022 Start: 04-19-2022 End: 06-19-2022 Lipid 1996 panel - Serum or Plasma [facility] Work Phone: Comment on above: Expected: 04/19/2022 , Expires: 06/19/2022 Start: 04-19-2022 End: 06-19-2022 Thyrotropin [Units/volume] in Serum or Plasma [facility] Work Phone: Comment on above: Expected: 04/19/2022 , Expires: 06/19/2022 Start: 04-19-2022 End: 06-19-2022 Thyroxine (T4) free [Mass/volume] in Serum or Plasma [facility] Work Phone: Comment on above: Expected: 04/19/2022 , Expires: 06/19/2022 Start: 04-19-2022 End: 06-19-2022 Triiodothyronine (T3) Free [Mass/volume] in Serum or Plasma [facility] Work Phone: Comment on above: Expected: 04/19/2022 , Expires: 06/19/2022 Start: 01-21-2022 End: 03-23-2022 25-hydroxyvitamin D3 [Mass/volume] in Serum or Plasma VITAMIN D 25 HYDROXY Lab Routine Vitamin D deficiency Expected: 01/21/2022, Expires: 03/23/2022 [facility] Work Phone: Comment on above: Expected: 01/21/2022 , Expires: 03/23/2022 Start: 01-21-2022 End: 03-23-2022 CBC W Auto Differential panel - Blood CBC + DIFF Lab Routine Hypothyroidism, unspecified type Expected: 01/21/2022, Expires: 03/23/2022 [facility] Work Phone: Comment on above: Expected: 01/21/2022 , Expires: 03/23/2022 Start: 01-21-2022 End: 03-23-2022 Cobalamin (Vitamin B12) [Mass/volume] in Serum or Plasma VITAMIN B12 BLOOD Lab Routine Vitamin B12 deficiency Expected: 01/21/2022, Expires: 03/23/2022 [facility] Work Phone: Comment on above: Expected: 01/21/2022 , Expires: 03/23/2022 Start: 01-21-2022 End: 03-23-2022 Comprehensive metabolic 2000 panel - Serum or Plasma COMP METABOLIC PANEL Lab Routine Hypothyroidism, unspecified type Expected: 01/21/2022, Expires: 03/23/2022 [facility] Work Phone: Comment on above: Expected: 01/21/2022 , Expires: 03/23/2022 Start: 01-21-2022 End: 03-23-2022 Hemoglobin A1c in Blood HGB A1C Lab Routine Hyperglycemia Expected: 01/21/2022 (Approximate), Expires: 03/23/2022 [facility] Work Phone: Comment on above: Expected: 01/21/2022 (Approximate), Expires: 03/23/2022 Start: 01-21-2022 End: 03-23-2022 Lipid 1996 panel - Serum or Plasma LIPID PANEL BASIC Lab Routine Dyslipidemia Expected: 01/21/2022, Expires: 03/23/2022 [facility] Work Phone: Comment on above: Expected: 01/21/2022 , Expires: 03/23/2022 Start: 01-21-2022 End: 03-23-2022 Magnesium [Mass/volume] in Serum or Plasma MAGNESIUM BLD Lab Routine Hypothyroidism, unspecified type Expected: 01/21/2022, Expires: 03/23/2022 [facility] Work Phone: Comment on above: Expected: 01/21/2022 , Expires: 03/23/2022 Start: 01-21-2022 End: 03-23-2022 THYROID PEROXIDASE ANTIBODY BLOOD THYROID PEROXIDASE ANTIBODY BLOOD Lab Routine Hypothyroidism, unspecified type Expected: 01/21/2022, Expires: 03/23/2022 [facility] Work Phone: Comment on above: Expected: 01/21/2022 , Expires: 03/23/2022 Start: 01-21-2022 End: 03-23-2022 Thyrotropin [Units/volume] in Serum or Plasma TSH BLD Lab Routine Hypothyroidism, unspecified type Expected: 01/21/2022, Expires: 03/23/2022 [facility] Work Phone: Comment on above: Expected: 01/21/2022 , Expires: 03/23/2022 Start: 01-21-2022 End: 03-23-2022 Thyroxine (T4) free [Mass/volume] in Serum or Plasma T4 FREE/FREE THYROX Lab Routine Hypothyroidism, unspecified type Expected: 01/21/2022, Expires: 03/23/2022 [facility] Work Phone: Comment on above: Expected: 01/21/2022 , Expires: 03/23/2022 Start: 01-21-2022 End: 03-23-2022 Triiodothyronine (T3) Free [Mass/volume] in Serum or Plasma T3 FREE BLD Lab Routine Hypothyroidism, unspecified type Expected: 01/21/2022, Expires: 03/23/2022 [facility] Work Phone: Comment on above: Expected: 01/21/2022 , Expires: 03/23/2022 Start: 01-13-2022 Influenza vaccination O [facility] Start: 11-11-2021 Influenza vaccination INFLUENZA (#1) [facility] Comment on above: Postponed from 01/13 (Declined at this time) Start: 10-23-2021 End: 12-23-2021 25-hydroxyvitamin D3 [Mass/volume] in Serum or Plasma VITAMIN D 25 HYDROXY Lab Routine Vitamin D deficiency Fatigue, unspecified type Expected: 10/23/2021, Expires: 12/23/2021 [facility] Work Phone: Comment on above: Expected: 10/23/2021 , Expires: 12/23/2021 Start: 10-23-2021 End: 12-23-2021 CBC W Auto Differential panel - Blood CBC + DIFF Lab Routine Fatigue, unspecified type Expected: 10/23/2021, Expires: 12/23/2021 [facility] Work Phone: Comment on above: Expected: 10/23/2021 , Expires: 12/23/2021 Start: 10-23-2021 End: 12-23-2021 Cobalamin (Vitamin B12) [Mass/volume] in Serum or Plasma VITAMIN B12 BLOOD Lab Routine Vitamin B12 deficiency Fatigue, unspecified type Expected: 10/23/2021, Expires: 12/23/2021 [facility] Work Phone: Comment on above: Expected: 10/23/2021 , Expires: 12/23/2021 Start: 10-23-2021 End: 12-23-2021 Comprehensive metabolic 2000 panel - Serum or Plasma COMP METABOLIC PANEL Lab Routine Fatigue, unspecified type Expected: 10/23/2021, Expires: 12/23/2021 [facility] Work Phone: Comment on above: Expected: 10/23/2021 , Expires: 12/23/2021 Start: 10-23-2021 End: 12-23-2021 Lipid 1996 panel - Serum or Plasma LIPID PANEL BASIC Lab Routine Dyslipidemia Expected: 10/23/2021, Expires: 12/23/2021 [facility] Work Phone: Comment on above: Expected: 10/23/2021 , Expires: 12/23/2021 Start: 10-23-2021 End: 12-23-2021 Thyrotropin [Units/volume] in Serum or Plasma TSH BLD Lab Routine Hypothyroidism, unspecified type Fatigue, unspecified type Expected: 10/23/2021, Expires: 12/23/2021 [facility] Work Phone: Comment on above: Expected: 10/23/2021 , Expires: 12/23/2021 Start: 10-23-2021 End: 12-23-2021 Thyroxine (T4) free [Mass/volume] in Serum or Plasma T4 FREE/FREE THYROX Lab Routine Hypothyroidism, unspecified type Fatigue, unspecified type Expected: 10/23/2021, Expires: 12/23/2021 [facility] Work Phone: Comment on above: Expected: 10/23/2021 , Expires: 12/23/2021 Start: 10-23-2021 End: 12-23-2021 Triiodothyronine (T3) Free [Mass/volume] in Serum or Plasma T3 FREE BLD Lab Routine Hypothyroidism, unspecified type Fatigue, unspecified type Expected: 10/23/2021, Expires: 12/23/2021 [facility] Work Phone: Comment on above: Expected: 10/23/2021 , Expires: 12/23/2021 Start: 05-15-2021 ADVANCE DIRECTIVE DISCUSSION ADVANCE DIRECTIVE DISCUSSION [facility] Start: 04-07-2021 COLORECTAL CANCER SCREENING COLORECTAL CANCER SCREENING [facility] Start: 04-07-2021 FECAL OCCULT BLOOD FECAL OCCULT BLOO D [facility] Start: 09-10-2020 [address] BONE D[address] [facility] Start: 09-10-2020 Bone Density Screening Bone Density Screening [facility] Start: 09-10-2020 Pneumococcal vaccination PNEUM OCOCCAL VACCINE SERIES (1 of 1 - PPSV23) [facility] Start: 09-10-2020 Pneumococcal Vaccine : 65+ (1 of 1 - PCV) Pneumococcal Vaccine: 65+ (1 of 1 - PCV) [facility] Start: 09-10-2020 PNEUMOCOCCAL: 65+ (1 - PCV) PNEUMOCOCCAL: 65+ (1 - PCV) [facility] Start: 09-10-2020 PNEUMOVAX AGE 65 AND OVER WITH 5YR LOOKBACK (#1) PNEUMOVAX AGE 65 AND OVER WITH 5YR LOOKBACK (#1) [facility] Start: 09-10-2020 Screening for osteoporosis Bone Dens ity Screening [facility] Start: 08-03-2020 Urine microalbumin profile DTA P,TDAP,TD (2 - Td or Tdap) [facility] Start: 11-21-[address] [facility] Start: 11-21-2019 Screening for malign ant neoplasm of breast Mammogram Screening [facility] Start: 10-02-2019 Thyroid stimulating hormone measurement TSH [facility] Start: 2015 RSV Vaccine (1 - 1-d ose 60+ series) RSV Vaccine (1 - 1-dose 60+ series) [facility] Start: 09-10-2005 SHINGRIX VACCINE (1 of 2) HAIRSTON GRIX VACCINE (1 of 2) [facility] Start: 09-10-2005 Zoster vaccine hzv l rafy for subcutaneous use ZOSTER (SHINGLES) VACCINE (1 of 2) [facility] Start: 09-10-2000 COLOGUARD (FIT-DNA) COLOGUARD (FIT-D NA) [facility] Start: 09-10-[address] [facility] Start: 09-10-[address] COLONOGRAPHY [facility] Start: 09-10-2000 Screening for malign ant neoplasm of colon [facility] Start: 09-10-2000 SIGMOIDOSCOPY SIGMOIDOSCOPY [facility] Start: 1995 Screening mammography MAMMOGRA M SCREENING DISCUSSION [facility] Start: 09-10-1976 Screening for malign ant neoplasm of cervix CERVICAL CANCER SCREENING DISCUSSION [facility] Start: 09-10-1974 Third diphtheria, te tanus and acellular pertussis (DTaP) vaccination TDAP (ADULT) [facility] Start: 09-10-1973 HIV SCREENING HIV SCREENING [facility] Start: 09-10-1973 Tetanus vaccination TETANUS [facility] Start: 09-10-1960 COVID-19 VACCINE (#1) COVID-19 VACCI NE (#1) [facility] Start: 09-10-1960 COVID-19 VACCINE (1) COVID-19 VACCIN E (1) [facility] Start: 03-12-1956 COVID-19 VACCINE (#1) COVID-19 VACCI NE (#1) [facility] Start: 1955 Hepatitis C antibody , confirmatory test HEPATITIS C VIRUS SCREENING [facility] Start: 1955 Screening for osteoporosis DEXA SCAN DISCUSSION [facility] End: 07-06-2023 DXA-AXIAL SKELETON DXA-AXIAL SKELETON Radiology Routine Encounter for screening for osteoporosis 1 Occurrences starting 06/06/2022 until 07/06/2023 [facility] Work Phone: Comment on above: 1 Occurrences starti ng 06/06/2022 until 07/06/2023 Hemoglobin.gastroint estina l.lower [Presence] in Stool by Immunoassay FECAL OCCULT BLOOD TEST Lab Routine Screening for colon cancer Ordered: 07/19/2022 [facility] Work Phone: Comment on above: Ordered: 07/19/2022 End: 08-18-2023 LUNG VOLUMES LUNG VOLUMES PFT Routine SOB (shortness of breath) 1 Occurrences starting 07/19/2022 until 08/18/2023 [facility] Work Phone: Comment on above: 1 Occurrences starti ng 07/19/2022 until 08/18/2023 LUNG VOLUMES LUNG VOLUMES PFT Routine SOB (shortness of breath) 07/20/2022 8:42 AM EST [facility] Work Phone: End: 07-06-2023 MANDO SCREENING MANDO SCREENING Radiology Routine Encounter for screening mammogram for malignant neoplasm of breast 1 Occurrences starting 06/06/2022 until 07/06/2023 [facility] Work Phone: Comment on above: 1 Occurrences starti ng 06/06/2022 until 07/06/2023 End: 06-15-2024 MANDO SCREENING MANDO SCREENING Radiology Routine Encounter for screening mammogram for breast cancer 1 Occurrences starting 05/17/2023 until 06/15/2024 [facility] Work Phone: Comment on above: 1 Occurrences starti ng 05/17/2023 until 06/15/2024 End: 08-18-2023 Radiologic exam chest 2 views XR CHEST 2V FRONTAL/LAT Radiology Routine SOB (shortness of breath) 1 Occurrences starting 07/19/2022 until 08/18/2023 [facility] Work Phone: Comment on above: 1 Occurrences starti ng 07/19/2022 until 08/18/2023 End: 12-10-2022 Screening mammography bi 2-view breast inc cad MANDO SCREENING Radiology Routine Encounter for screening mammogram for breast cancer 1 Occurrences starting 11/10/2021 until 12/10/2022 [facility] Work Phone: Comment on above: 1 Occurrences starti ng 11/10/2021 until 12/10/2022 End: 08-18-2023 SPIROMETRY - BASELINE AND POST DILATOR SPIROMETRY - BASELINE AND POST DILATOR PFT Routine SOB (shortness of breath) 1 Occurrences starting 07/19/2022 until 08/18/2023 [facility] Work Phone: Comment on above: 1 Occurrences starti ng 07/19/2022 until 08/18/2023 SPIROMETRY - BASELIN E AND POST DILATOR SPIROMETRY - BASELINE AND POST DILATOR PFT Routine SOB (shortness of breath) 07/20/2022 8:42 AM EST [facility] Work Phone: End: 05-19-2023 STRESS ECHO TREADMILL STRESS ECHO TREADMILL Cardiology Routine Near syncope 1 Occurrences starting 05/19/2022 until 05/19/2023 [facility] Work Phone: Comment on above: 1 Occurrences starti ng 05/19/2022 until 05/19/2023 End: 06-02-2023 Us abdominal real time w/image limited US ABD RT UPPER QUADRANT Radiology Routine Elevated alkaline phosphatase level 1 Occurrences starting 05/03/2022 until 06/02/2023 [facility] Work Phone: Comment on above: 1 Occurrences starti ng 05/03/2022 until 06/02/2023 End: 07-06-2023 XR ANKLE GENERAL 3V AP/LAT/OBL RIGHT XR ANKLE GENERAL 3V AP/LAT/OBL RIGHT Radiology Routine Right ankle swelling 1 Occurrences starting 06/06/2022 until 07/06/2023 [facility] Work Phone: Comment on above: 1 Occurrences starti ng 06/06/2022 until 07/06/2023 XR ANKLE GENERAL 3V AP/LAT/OBL RIGHT XR ANKLE GENERAL 3V AP/LAT/OBL RIGHT Radiology Routine Right ankle swelling 06/06/2022 11:36 AM EST [facility] Work Phone: [facility] Immunizations Immunization Date Immunization Notes Care Provider Fa lydia 03-24-2020 influenza, seasonal, injectable Jossy Chahal SHEET ROCK APPLICATOR.SEARCH DIRECTOR Work Phone: [facility] Work Phone: 03-24-2020 influenza virus vaccine, unspecified formulation Said Atway DPM Work Phone: [facility] 03-18-2020 influenza, seasonal, injectable [facility] Work Phone: 10-23-2019 tetanus toxoid, redu bianka diphtheria toxoid, and acellular pertussis vaccine, adsorbed [facility] Work Phone: 03-27-2019 influenza, seasonal, injectable [facility] Work Phone: 02-19-2019 influenza, seasonal, injectable 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 SHEET ROCK APPLICATOR.[facility] Work Phone: [facility] Work Phone: 03-05-2018 influenza, seasonal, injectable [facility] Work Phone: 02-14-2018 influenza, seasonal, injectable 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 SHEET ROCK APPLICATOR.[facility] Work Phone: [facility] Work Phone: 08-03-2010 tetanus toxoid, redu bianka diphtheria toxoid, and acellular pertussis vaccine, adsorbed 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 SHEET ROCK APPLICATOR.[facility] Work Phone: [facility] Work Phone: Payers Date Payer Category Payer Self-pay [id number] 2023 Unknown [id number] 2022 Medicare [id number] 2021 Medicare [id number] 2021 Medicare HUMANA MEDICARE HUMANA GOLD PLUS [id number] 2021-[facility] [id number] [place] [id number] [facility] [id number] 2021 Medicare [id number] 2017 Unknown [id number] 1955 Unknown [id number] 1955 Unknown [id number] 1955 Unknown [id number] 1955 Unknown [id number] Medicare MEDICARE PART A B [id number] Unknown [id number] Unknown [employer] OTHER [id number] Unknown [employer] CO [id number] Unknown [facility] 9 [id number] Unknown [id number] Unknown [id number] Social History Date Type Detail Facility Start: 09-30-2018 End: 01-21-2022 Tobacco smoking status NHIS Ex-smoker [facility] Work Phone: End: 05-15-1988 History of tobacco use Current smoker [facility] Work Phone: End: 05-15-1988 History of tobacco use Cigarette Smoker [facility] Work Phone: Start: 06-23-2021 End: 07-14-2023 Alcohol intake Current non-drinker of alcohol (finding) [facility] Start: 1955 Sex Assigned At Not on file [facility] Start: 09-30-2018 End: 10-05-2022 Cigarettes smoked current (pack per day) - Reported 2 [facility] Start: 09-30-2018 End: 01-21-2022 Tobacco use and exposure Smokeless tobacco non-user [facility] Start: 07-19-2021 End: 01-21-2022 Exposure to SARS-CoV-2 (event) Not sure [facility] Start: 1955 Sex Assigned At Female W [facility] Work Phone: Start: 10-05-2022 End: 11-25-[address] [facility] Adult Depression Screening Assessment 0 [facility] Medical Equipment Procedure Code Equipment Code Equipment Origin al Text Equipment Identifier Dates [id number] Implant - [id number] Start: 01-31-2012 Comment on above: Description: C1713,S CREW Screw Bn 3.5mm 45mm Ti [place] - [id number] Start: 01-31-2012 Wire Fix .054in 6in Krsh Ss Ns - [id number] Start: 01-31-2012 Comment on above: Description: ONE .O5 4 KWIRE EXPLANTED Clinical Notes 11-04-2013 to 07-15-2023 Telephone Encounter - Lupe Stoll LPN - 07/15/2023 9:26 AM ESTTelephone Encounter - Shin Arias DO - 07/15/2023 8:13 AM Viji Parekh - 05/04/2023 12:04 PM EST Note Date & Type Note Facility 07-15-2023 Miscellaneous Notes Pt. informed via My Chart. Please inform patient that her thyroid labs all look great, no changes needed Shin Arias DO documented in this encounter [facility] 07-07-2023 Miscellaneous Notes Pt. informed detailed message left on VM. Would you mind opening for pt and placing her in one of these. I can not open. Patient stated that she was needin to be seen earlier due to surgery upcoming Okay to schedule on Monday07/14/23 at 340 through 420 pm if this is still available and works for the patient Shin Arias DO documented in this encounter [facility] 06-23-2023 Miscellaneous Notes The following approved medication requests have been transmitted electronically. Requested Prescriptions Signed Prescriptions Disp Refills dextroamphetamine-amphetamine (ADDERALL) 10 mg tablet 30 tablet 0 Sig: Take 0.5-1 tablets by mouth once daily for 30 days. Authorizing Provider: IVANA MITCHELL APRN.[facility] PDMP website checked and validated. All prescriptions [...] Mary Jo Rodriguez. documented in this encounter [facility] 05-17-2023 Note Patient Outreach (IN TMMN) HENRY OLIVEIRA ([id number]) 1955 F Date Time Provider Department 05/17/23 [...] screening mammogram for breast cancer [Z12.31] Order(s):[facility] SCREENING [[id number]] Order #: [id number] FUTURE Prescriptions as of 05/22/2023 - dextroamphetamine-amphetamine [...] daily as needed (skin infection). - omega 6-lbd-usr-fish oil (FISH OIL) 100-160-1,000 mg cap Take [...] [Z77.018] 03/24/2021 Chito (more content not included)... [facility] 05-09-2023 Note HNO ID: [id number] Author: Viji Marrero Service: ? Author Type: ? Type: Progress Notes Filed: 05/09/2023 12:09 PM Note Text: POPULATION HEALTH NAVIGATION OUTREACH Action/FYI 2nd call, left vm Patient Identified by Name and : NO Outreach Outcome/Action Unable to reach patient: Left message [employer] message sent Did you use a PCP flex slot to schedule this appointment? No Reason for Outreach Care Gap or Scheduling/Wellness visits Payer: Payor: MMO MEDICARE / Plan: MMO MEDADiCopyright HMO / Product Type: HMO / Care [...] Viji Marrero May 09, 2023 12:09 PM [facility] 05-09-2023 Note Patient Outreach (AC CC) HENRY OLIVEIRA ([id number]) 1955 F Date Time Provider Department 05/09/23 PCP (HISTORICAL) [facility] During your visit today, we recorded the following information about you: NirmaldustinViji monae 05/09/2023 12:09 PM Signed POPULATION HEALTH NAVIGATION OUTREACH Action/FYI 2nd call, left vm Patient Identified by Name and : NO Outreach Outcome/Action Unable to reach patient: Left message [employer]hart message sent Did you use a PCP [...] Screening due on 07/29/2023 Navigation Signature: Viji Kinneydustinletha May 09, 2023 12:09 PM Allergies As [...] daily as needed (skin infection). - omega 6-htw-mww-fish oil (FISH OIL) 100-160-1,000 mg cap Take [...] deficit [R41.840] 02/28/2017 (more content not included)... [facility] 05-04-2023 Note HNO ID: [id number] Author: Viji Marrero Service: ? Author Type: ? Type: Progress Notes Filed: 05/04/2023 12:04 PM Note Text: POPULATION HEALTH NAVIGATION OUTREACH Action/FYI Left vm Patient Identified by Name and : NO Outreach Outcome/Action Unable to reach patient: Left message MyChart message sent Did you use a PCP flex slot to schedule this appointment? No Reason for Outreach Care Gap or Scheduling/Wellness visits Payer: Payor: MMO MEDICARE / Plan: MMO MEDADVANTAGE HMO / [...] Viji Marrero May 04, 2023 12:04 PM [facility] 05-04-2023 Note Patient Outreach (AC CC) HENRY OLIVEIRA ([id number]) 1955 F Date Time Provider Department 05/04/23 PCP (HISTORICAL) [facility] During your visit today, we recorded the following information about you: Viji Marrero 05/04/2023 12:04 PM Signed POPULATION HEALTH NAVIGATION OUTREACH Action/FYI Left vm Patient Identified by Name and : NO Outreach Outcome/Action Unable to reach patient: Left message [employer] message sent Did you use a PCP flex slot to schedule this appointment? No Reason for Outreach Care Gap or Scheduling/Wellness visits Payer: Payor: O MEDICARE / Plan: [employer] MySupportAssistant HMO / Product Type: HMO / Care [...] daily as needed (skin infection). - omega 1-apf-ycv-fish oil (FISH OIL) 100-160-1,000 mg cap Take [...] 02/28/2017 Mood diso (more content not included)... [facility] 05-04-2023 History of Present illness Narrative POPULATION HEALTH NAVIGATION OUTREACH Action/FYI Left vm Patient Identified by Name and : NO Outreach Outcome/Action Unable to reach patient: Left message [employer]hart message sent Did you use a PCP flex slot to schedule this appointment? No Reason for Outreach Care Gap or Scheduling/Wellness visits Payer: Payor: MMO MEDICARE / Plan: [employer] MEDADiCopyright HMO / Product Type: HMO / Care [...] 2023 12:04 PM documented in this encounter [facility] 05-03-2023 Note HNO ID: [id number] Author: Shin Arias, DO Service: ? Author [...] prolonged standing or walking. 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 Did have some b/l [...] this brings her melyssa. 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 Interested in seeing De[facility]er at [facility]. PAST MEDICAL HISTORY Diagnosis Date Abnormal glandular Papanicolaou smear of cervix Abn. Pap smear (cervix) Asymptomatic varicose veins Depressive disorder, not elsewhere classified 09/27/2006 Hearing decreased Hyperlipidemia Hypothyroidism 2010 HERNAN on CPAP DME [facility] Peripheral vascular disease, unspecified (HCC) varicose veins Sleep apnea CPAP Supraspinatus tendon tear 04/03/2012 right shoulder Vitamin B12 deficiency Vitamin D deficiency 10/30/2013 PAST SURGICAL HISTORY Procedure Laterality Date COLPOSCOPY CERVIX UPPER/ADJACENT VAGINA Colposcopy CORRECT BUNION,SIMPLE 9- (more content not included)... [facility] 04-11-2023 Miscellaneous Notes Patient has been identified [...] patient. Jamia Young documented in this encounter [facility] 02-20-2023 Miscellaneous Notes TC to patient who verbalized understanding of script sent to pharmacy. Nothing further at this time. CLAUDE Powell PDMP website checked and validated. All prescriptions have been APPROPRIATELY filled. No suspicious activity was identified. 02/20/2023 by Jossy Gustafson APRN.SEARCH DIRECTOR The following approved medication requests have been transmitted electronically. Requested Prescriptions Signed Prescriptions Disp Refills dextroamphetamine-amphetamine (ADDERALL) 10 mg tablet 30 tablet 0 Sig: Take 0.5-1 tablets by mouth once daily for 30 days. Authorizing Provider: JOSSY GUSTAFSON APRN.SEARCH DIRECTOR Patient called frustrated to check on the status of her refill. Review and advise. Patient's Adderall was sent to the wrong pharmacy. She is asking it be sent to the [facility] in [place]. Pended order pharmacy has been updated. Please resend. Pharmacy verified in [facility] Patient has been identified by name and [...] advise. Gayla Peck documented in this encounter [facility] 01-26-2023 Miscellaneous Notes Patient given results and verbalized understanding of instructions given. Marjorie Cui Left message for patient to return call. Xochilt Thomson LPN ----- Message from Lida Cardenas APRN.SEARCH DIRECTOR sent at 01/26/2023 7:21 AM EDT ----- [...] care provider or schedule a visit with [facility]. A test is not recommended to return to work/school when meeting the above criteria. Lida Cardenas APRN.SEARCH DIRECTOR documented in this encounter [facility] 01-25-2023 Note HNO ID: [id number] Author: Chris Rendon MD Service: ? Author [...] 1 tablet by mouth once daily. omega 6-ybc-gmd-fish oil (FISH OIL) 100-160-1,000 mg cap Take [...] INFLUENZA A/B NAAT, ROUTINE Chris Rendon MD [facility] 01-25-2023 History of Present illness Narrative Patient [...] 1 tablet by mouth once daily. omega 0-cby-hxn-fish oil (FISH OIL) 100-160-1,000 mg cap Take [...] Chris Rendon MD documented in this encounter [facility] 12-26-2022 Note HNO ID: [id number] Author: Alivia Leyva PA-C Service: ? Author Type: Physician Telecommunicator Supervisor Type: Progress Notes Filed: 12/26/2022 9:17 AM [...] decreased Hyperlipidemia Hypothyroidism 2010 HERNAN on CPAP [facility] Peripheral vascular disease, unspecified (HCC) varicose veins [...] mouth once daily. 90 tablet 1 omega 7-jhu-lwq-fish oil (FISH OIL) 100-160-1,000 mg cap Take 1 capsul (more content not included)... [facility] 12-26-2022 Miscellaneous Notes The following approved medication [...] advise. Lizzy Peck documented in this encounter [facility] 12-26-2022 History of Present illness Narrative [...] decreased Hyperlipidemia Hypothyroidism 2010 HERNAN on CPAP [facility] Peripheral vascular disease, unspecified (HCC) varicose veins [...] mouth once daily. 90 tablet 1 omega 3-saf-tdw-fish oil (FISH OIL) 100-160-1,000 mg cap Take [...] or with Dr. Arias. 35 minute visit Ailvia Leyva PA-C documented in this encounter [facility] 11-25-2022 Note HNO ID: [id number] Author: Alivia Leyva PA-C Service: ? Author Type: Physician Telecommunicator Supervisor Type: Progress Notes Filed: 11/25/2022 5:53 PM [...] of self injury. Continues to work at [employer], job that she enjoys related to the [...] decreased Hyperlipidemia Hypothyroidism 2010 HERNAN on CPAP [facility] Peripheral vascular disease, unspecified (HCC) varicose veins [...] 0 mometasone (ELOCON) (more content not included)... [facility] 11-25-2022 History of Present illness Narrative 67 [...] of self injury. Continues to work at [employer], job that she enjoys related to the [...] decreased Hyperlipidemia Hypothyroidism 2010 HERNAN on CPAP [facility] Peripheral vascular disease, unspecified (HCC) varicose veins [...] mouth once daily. 90 tablet 1 omega 7-iyf-yha-fish oil (FISH OIL) 100-160-1,000 mg cap Take [...] Z86.73 40-minute appointment almost all spent in [id number] counseling and education. Follow-up 4 weeks to see how fluoxetine and fluid restrictions are affecting sleep Alivia Leyva PA-C documented in this encounter [facility] 10-19-2022 Note HNO ID: [id number] Author: Shin Arias, DO Service: ? Author [...] given. 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 Did have some b/l [...] decreased Hyperlipidemia Hypothyroidism 2010 HERNAN on CPAP [facility] Peripheral vascular disease, unspecified (HCC) varicose veins Sleep apnea CPAP Supraspinatus tendon tear 04/03/2012 right shoulder Vitamin B12 deficiency Vitamin D deficiency 10/30/2013 PAST SURGICAL HISTORY Procedure Laterality Date COLPOSCOPY CERVIX UPPER/ADJACENT VAGINA (more content not included)... [facility] 10-19-2022 History of Present illness Narrative CC: [...] given. 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 Did have some b/l [...] decreased Hyperlipidemia Hypothyroidism 2010 HERNAN on CPAP [facility] Peripheral vascular disease, unspecified (HCC) varicose veins [...] 1 tablet by mouth once daily. omega 0-pkc-ngw-fish oil (FISH OIL) 100-160-1,000 mg cap Take [...] plan. See patient instructions. Shin Arias DO [address] [place] [address] documented in this encounter [facility] 10-05-2022 Note HNO ID: [id number] Author: Shin Arias DO Service: ? Author [...] given. 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 [facility] 09-07-2022 Miscellaneous Notes Rec'd fax and this [...] provided. This was not correct. Pharmacy is [phone]. PA already completed and denied. Tier exception is being reviewed. Will rec'd response via fax. The reference number for this is [id number]. This call took over 20 minutes. Patient calling said she needs formulary exception done for the Amour thyroid. Henry Oliveira Sawyer: [id number] - PA help? Call us at Outcome Deniedtoday Request Reference Number: [id number]. ARMOUR THYRO TAB 90MG is denied for not meeting the prior authorization requirement(s). Details of this decision are in the notice attached below or have been faxed to you Henry Oliveira Sawyer: [id number] - PA help? Call us at [facility] [place] Thyroid 90MG tablets Form [employer] Electronic Prior Authorization Form (2016 NCPDP) THE OFFICE CAN COMPLETE A PA. we have no pharmacy benefits on file. Will have to review via covermymeds.We do not have the ability to add meds to a formulary. Pt called in and reports office will need to call insurance phone # [phone] to get their [place] Thyroid added to insurance formulary. Pt reports she is almost out of medication. Prior Authorization Documentation Prior authorization requested for the following medication: Medication: [place] Thyroid Provider: Dr Arias Insurance Company Name: [facility] Medicare Insurance Company Phone number: [phone] Patient ID number: [id number] Pharmacy Name: [facility] Telephone number: [phone] documented in this encounter [facility] 08-10-2022 Note HNO ID: [id number] Author: Shin Arias, DO Service: ? Author [...] decreased Hyperlipidemia Hypothyroidism 2010 HERNAN on CPAP [facility] Peripheral vascular disease, unspecified (HCC) varicose veins [...] repair Current Outpatient Medications Medication Sig omega 8-jgm-ajw-fish oil (FISH OIL) 100-160-1,000 mg cap Take [...] 25 MG TABLET (more content not included)... [facility] 08-10-2022 History of Present illness Narrative CC: [...] decreased Hyperlipidemia Hypothyroidism 2010 HERNAN on CPAP [facility] Peripheral vascular disease, unspecified (HCC) varicose veins [...] repair Current Outpatient Medications Medication Sig omega 7-nmh-quh-fish oil (FISH OIL) 100-160-1,000 mg cap Take [...] plan. See patient instructions. Shin Arias DO [address] [place] [address] documented [address] this encounter [facility] 08-09-2022 Miscellaneous Notes Appointment made message left on VM. Please schedule her an appt. I have 3 openings tomorrow or can see [employer] MA[employer]GER as well Shin Arias DO Patient calling asking for appt today with PCP she has poison ismael rash and hands and feet and is spreading. Patient refuses to go to express care, aware FRO[employer] FOODS MANAGER are out of office today. Please advise documented in this encounter [facility] 08-05-2022 Miscellaneous Notes Pt informed, verbalized understanding Jaz Solis Hold armour thyroid 2x per week. Jossy Gustafson APRN.SEARCH DIRECTOR Patient returned call and went over results, [...] Shin Arias DO documented in this encounter [facility] 07-22-2022 Miscellaneous Notes Pt. informed via My Chart. Please inform patient that her PFTs and lung volumes were normal as below IMPRESSION: Spirometry is normal. There was not a significant bronchodilator response. The TLC, RV and RV/TLC are normal. Shin Arias DO documented in this encounter [facility] 07-21-2022 Miscellaneous Notes Sent [employer] message [employer] The following approved medication requests have been transmitted electronically. Requested Prescriptions Signed Prescriptions Disp Refills ARMOUR THYROID 90 mg tablet 30 tablet 0 Sig: Take 1 tablet by mouth once daily. Authorizing Provider: JOSSY GUSTAFSON APRN.CNP Pt calling office to request a 1 month supply of [place] thyroid to be sent to [facility] in [place]. Rx pending. Please review and advise. Neri Robles LPN documented in this encounter [facility] 07-20-2022 Note HNO ID: [id number] Author: ONEYDA Naranjo Service: ? Author Type: Respiratory Therapist Type: Progress Notes Filed: 07/20/2022 9:11 AM Note Text: PULM FUNCTION SMARTBLOCK: Provider: Shin Arias DO Assisting Tech: ONEYDA Naranjo Spirometry w/BD: 1 LV - Box: 1 [facility] 07-20-2022 History of Present illness Narrative PULM FUNCTION SMARTBLOCK: Provider: Shin Arias DO Assisting Tech: ONEYDA Naranjo Spirometry w/BD: 1 LV - Box: [address] encounter [facility] 07-19-2022 Note HNO ID: [id number] Author: Shin Arias DO Service: ? Author Type: Physician Type: Progress Notes Filed: 07/19/2022 5:20 PM Note Text: CC: Henry Oliveira is a 66 year old female who presents to the office for follow up HPI: Right ankle and foot pain, was told needs to wear a Boot then x-rays then likely brace for right ankle tendinitis, seen by De[facility], no surgery needed at this time. Going to have metal fillings removed from her mouth. Feels that this is affecting her health Mood, feels she is managing well with being off the Prozac medication, doesn't feel she needs anything at this time. Has good foundation with jew and jew friends as well. Hypothyroidism, taking her armour thyroid medication, cost is expensive, doesn't want to be on synthetic medication. Hair is thinning, + chronic fatigue + shortness of breath, mostly at jew when she is trying to sing or [...] decreased Hyperlipidemia Hypothyroidism 2010 HERNAN on CPAP [facility] Peripheral vascular disease, unspecified (HCC) varicose veins [...] repair Current Outpatient Medications Medication Sig omega 0-ovj-vwz-fish oil (FISH OIL) 100-160-1,000 mg cap Take [...] No edema, norm (more content not included)... [facility] 07-19-2022 History of Present illness Narrative CC: Henry Oliveira is a 66 year old female who presents to the office for follow up HPI: Right ankle and foot pain, was told needs to wear a Boot then x-rays then likely brace for right ankle tendinitis, seen by [facility], no surgery needed at this time. Going to have metal fillings removed from her mouth. Feels that this is affecting her health Mood, feels she is managing well with being off the Prozac medication, doesn't feel she needs anything at this time. Has good foundation with jew and jew friends as well. Hypothyroidism, taking her armour thyroid medication, cost is expensive, doesn't want to be on synthetic medication. Hair is thinning, + chronic fatigue + shortness of breath, mostly at jew when she is trying to sing or [...] Hyperlipidemia Hypothyroidism 2010 HERNAN on CPAP [facility] Peripheral vascular disease, unspecified (HCC) [...] repair Current Outpatient Medications Medication Sig omega 1-pls-sqv-fish oil (FISH OIL) 100-160-1,000 mg cap Take [...] ICD9: 727.06, ICD10: M77.51 - f/u with [facility] 5. SOB (shortness of breath) - ICD9: [...] plan. See patient instructions. Shin Arias DO [address] [place] [address] documented [address] this encounter [facility] 06-21-2022 Miscellaneous Notes Pt informed, verbalized understanding Jaz Solis Yes, please inform patient that [facility] Shin [facility]as DO Patient reports Baljinder is out of adderall 10 mg. Reports she has 4 pills left. Asking if provider would send Rx to [facility]? Pended. documented in this encounter [facility] 06-20-2022 Miscellaneous Notes PDMP website checked and validated. All prescriptions have been APPROPRIATELY filled. No suspicious activity was identified. 06/20/2022 by Jossy Gustafson APRN.CNP The following approved [...] Angela Buchanan Pss documented in this encounter [facility] 06-09-2022 Miscellaneous Notes Status on below [...] Rosamaria Montaño LPN documented in this encounter [facility] 06-08-2022 Miscellaneous Notes Patient called and notified of results and providers instructions. Patient verbalizes understanding. Genie Calles, SHAHAB X-ray showed swelling but no abnormalities to bone or alignment. This could be ankle sprain from unknown cause or related to bunions. I would continue RICE therapy as discussed in office,rotate between motrin or tylenol as needed and if no improvement within 2 weeks -- get opinion of military professional. Thank you, Jossy Gustafson APRN.SEARCH DIRECTOR Patient calls to request results of right ankle x-ray. Reviewed x-ray results and OV note from 06/06/2022. Patient asking if any further instructions from provider. Patient aware provider out of office today and will return tomorrow. Please review and advise, Genie Calles RN documented in this encounter [facility] 06-06-2022 Instructions Cydney Mahmood LPN - [...] usual activities immediately. documented in this encounter [facility] 06-06-2022 History of Present illness Narrative [...] hesitant and worried about going back to military professional for repeat surgery on other foot. Past medical history, appointments, medications, allergies reviewed. Previous Medical History PAST MEDICAL HISTORY Diagnosis Date Abnormal glandular Papanicolaou smear of cervix Abn. Pap smear (cervix) Asymptomatic varicose veins Depressive disorder, not elsewhere classified 09/27/2006 Hearing decreased Hyperlipidemia Hypothyroidism 2010 HERNAN on CPAP [facility] Peripheral vascular disease, unspecified (HCC) varicose veins Sleep apnea CPAP Supraspinatus tendon tear 04/03/2012 right shoulder Vitamin B12 deficiency Vitamin D deficiency 10/30/2013 Previous Surgical History PAST SURGICAL HISTORY Procedure Laterality Date COLPOSCOPY CERVIX UPPER/ADJACENT VAGINA Colposcopy CORRECT BUNION,SIMPLE 01-31-12 Bunion, left DILATION & CURETTAGE DX&/THER NONOBSTETRIC Dilation & curettage LIG/TRNSXJ FLP TUBE ABDL/VAG [...] within 1-2 weeks, may need to see military professional about bunion correction. Pt agrees. Has recommendation of which military professional she would like to go to if [...] Patient agreeable to treatment plan. Jossy Chahal APRN.SEARCH DIRECTOR [address] [place] [address] documented [address] this encounter [facility] 05-19-2022 History of Present illness Narrative [...] decreased Hyperlipidemia Hypothyroidism 2010 HERNAN on CPAP [facility] Peripheral vascular disease, unspecified (HCC) varicose veins [...] Alivia Leyva PA-C documented in this encounter [facility] 05-17-2022 Miscellaneous Notes Patient has been [...] Jazlyn Marquez RN documented in this encounter [facility] 05-11-2022 Miscellaneous Notes PDMP website checked and validated. All prescriptions have been APPROPRIATELY filled. No suspicious activity was identified. 05/11/2022 by Jossy Chahal APRN.CNP The following approved [...] Lupe Garcia Pss documented in this encounter [facility] 05-11-2022 Miscellaneous Notes Spoke with pt [...] Shin Arias DO documented in this encounter [facility] 05-10-2022 History of Present illness Narrative 66 year old female with hx anxiety, depression, ADD, hypothyroidism, HERNAN, stroke r/t right cerebellar artery, VA stenosis with c/o episode hot, weak, sick to stomach . [place] like when she had her stroke. 9:30a Giving an infirm friend a bath: she was standing, Tawana was bent over washing under belly and suddenly felt sick to stomach, weak, drove home. Episode came up from toes, hot all over, nausea, weak, not syncopal but somewhat lightheaded. No focal symptoms. [place] somewhat like sx when she had her [...] normal carotid flow. 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 04-19-2022 History of Present illness Narrative [...] cataracts. Had recent surgery for cataracts at [facility] Is recently fully retired, taking care of 2 granddaughters 2 days a week. Is looking forward hopefully to be able to travel a little eventually but unsure if will be able due to financials. Has tapered off her Prozac and feels overall her mood is stable. Relies on her Jew audrey and friends for support. 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 Need for follow up with De[facility]er if exercises don't help symptoms Shin Arias DO Return if no improvement. Follow up with Shin Arias DO. To ER if develops chest pain, shortness of breath Discussed risks, benefits, alternatives, and potential side effects of medications. Patient/Guardian expressed understanding and agreed with the plan. See patient instructions. Shin Arias DO [address] [place] [address] documented [address] this encounter [facility] 03-16-2022 Miscellaneous Notes PDMP website checked [...] Lupe Garcia Pss documented in this encounter [facility] 01-21-2022 Instructions Shin Arias DO - 01/21/2022 12:31 PM EDT Vitamin B complex in the AM- liquid or chewable (with at least 2000 mcg or more of vitamin B12 within it) documented in this encounter [facility] 01-21-2022 History of Present illness Narrative [...] her mood is stable. Relies on her Jew audrey and friends for support. Hypothyroidism, + fatigue, she is unsure if this is related to her thyroid dx or her HERNAN and not tolerating masks well. PAST MEDICAL HISTORY Diagnosis Date Abnormal glandular Papanicolaou smear of cervix Abn. Pap smear (cervix) Asymptomatic varicose veins Depressive disorder, not elsewhere classified 09/27/2006 Hearing decreased Hyperlipidemia Hypothyroidism 2010 HERNAN on CPAP [facility] Peripheral vascular disease, unspecified (HCC) varicose veins [...] off Prozac, overall mood seems stable Shin Arias, DO To ER if develops chest pain, shortness of breath, or severe worsening of symptoms. Discussed risks, benefits, alternatives, and potential side effects of medications. Patient expressed understanding and agreed with the plan. Shin Arias DO [address] [place] [address] documented [address] this encounter [facility] 01-19-2022 Miscellaneous Notes The following approved medication requests have been transmitted electronically. Requested Prescriptions Signed Prescriptions Disp Refills dextroamphetamine-amphetamine (ADDERALL) 10 mg tablet 30 tablet 0 Sig: Take 0.5-1 tablets by mouth once daily for 30 days. Authorizing Provider: IVANA MITCHELL APRN.SEARCH DIRECTOR PDMP website checked and validated. All prescriptions [...] Angela Buchanan Pss documented in this encounter [facility] 12-31-2021 Miscellaneous Notes Patient has been [...] Last refill: 05/2021 [address] encounter [facility] 11-25-2021 Miscellaneous Notes The following approved medication requests have been transmitted electronically. Signed Prescriptions Disp Refills dextroamphetamine-amphetamine (ADDERALL) 10 mg tablet 30 tablet 0 Sig: Take 0.5-1 tablets by mouth once daily for 30 days. SANDRA Class: C-II RADHA: No Authorizing Provider: JOSSY CHAHAL APRN.SEARCH DIRECTOR PDMP website checked and validated. All prescriptions have been APPROPRIATELY filled. No suspicious activity was identified. 11/25/2021 by Jossy Chahal APRN.ARA Pharmacy verified in [facility] Patient has been identified by name and [...] 66.7 kg (147 lb) Please advise. Gayla Peck documented in this encounter [facility] 10-23-2021 History of Present illness Narrative CC: Henry Oliveira is a 66 year old female who presents to the office for follow up HPI: Mood, overall feels the Prozac and prn trazodone for insomnia is helping symptoms stay stable. She is still enjoying watching her granddaughters and jew activities. Hypothyroidism, taking armour thyroid hormone supplement [...] Hyperlipidemia Hypothyroidism 2010 HERNAN on CPAP [facility]ME [facility] Peripheral vascular disease, unspecified (HCC) [...] plan. See patient instructions. Shin Arias DO [address] [place] [address] documented in this encounter [facility] 10-22-2021 Instructions Shin Arias DO - 10/22/2021 4:46 PM EDT Change your Marley to Zyrtec 10 mg or to Xyzal 5-10 mg a day for allergy symptoms Eye lubricating drops or allergy eye drops 1-2 times a day to help eye symptoms. documented in this encounter [facility] 10-08-2021 Miscellaneous Notes PDMP website checked and validated. All prescriptions have been APPROPRIATELY filled. No suspicious activity was identified. 10/08/2021 by Jossy Chahal APRN.ARA The following approved medication requests have [...] Jo Sedinger [employer] documented in this encounter [facility] 09-09-2021 Miscellaneous Notes PDMP website checked [...] advise. Sera PECK documented in this encounter [facility] 08-09-2021 Miscellaneous Notes The following approved medication requests have been transmitted electronically. Signed Prescriptions Disp Refills ARMOUR THYROID 90 mg 90 tablet 3 Sig: Take 1 tablet by mouth daily before breakfast. RADHA: Yes Authorizing Provider: JOSSY CHAHAL APRN.CNP documented in this encounter 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 [...] to address this. documented in this encounter [facility] 06-30-2021 Miscellaneous Notes Pt notified via [employer] message Jaz Addison Ma The following approved medication requests have been transmitted electronically. Signed Prescriptions Disp Refills FLUoxetine (PROZAC) 20 mg capsule 90 capsule 1 Sig: Take 1 capsule by mouth once daily. RADHA: No Authorizing Provider: SHIN ARIAS DO Please load rx's needed Shin Arias DO PT called and wanted her medication to be sent to [facility] in [place] instead of [facility]. documented in this encounter [facility] 11-04-2013 History of Past i llness [...] of this encounter (statuses as of 08/09/2021) [facility] of Past illness Narrative* Problem [...] of this encounter (statuses as of 09/09/2021) [facility] of [facility] Narrative* Problem [...] of this encounter (statuses as of 10/08/2021) [facility] Narrative* Problem [...] of this encounter (statuses as of 10/16/2021) [facility] Narrative* Problem [...] of this encounter (statuses as of 10/23/2021) [facility] Narrative* Problem [...] of this encounter (statuses as of 11/15/2021) [facility] Narrative* Problem [...] of this encounter (statuses as of 11/25/2021) [facility] Narrative* Problem [...] of this encounter (statuses as of 12/31/2021) [facility] Narrative* Problem [...] of this encounter (statuses as of 01/19/2022) [facility] Narrative* Problem [...] of this encounter (statuses as of 01/21/2022) [facility] Narrative* Problem [...] of this encounter (statuses as of 03/16/2022) [facility] Narrative* Problem [...] of this encounter (statuses as of 04/19/2022) [facility] Narrative* Problem [...] of this encounter (statuses as of 05/17/2022) [facility] Narrative* Problem [...] of this encounter (statuses as of 05/18/2022) [facility] Narrative* Problem [...] of this encounter (statuses as of 05/20/2022) [facility] Narrative* Problem [...] of this encounter (statuses as of 05/21/2022) [facility] Narrative* Problem [...] of this encounter (statuses as of 06/06/2022) [facility] Narrative* Problem [...] of this encounter (statuses as of 06/08/2022) [facility] Narrative* Problem [...] of this encounter (statuses as of 06/09/2022) [facility] Narrative* Problem [...] of this encounter (statuses as of 06/21/2022) [facility] Narrative* Problem [...] of this encounter (statuses as of 06/22/2022) [facility] Narrative* Problem [...] of this encounter (statuses as of 07/20/2022) [facility] Narrative* Problem [...] of this encounter (statuses as of 07/20/2022) [facility] Past illness Narrative* Problem [...] of this encounter (statuses as of 07/21/2022) [facility] of Past illness Narrative* Problem [...] of this encounter (statuses as of 07/22/2022) [facility] Past [facility] Narrative* Problem [...] of this encounter (statuses as of 08/05/2022) [facility] Past [facility] Narrative* Problem [...] of this encounter (statuses as of 08/10/2022) [facility] Narrative* Problem [...] of this encounter (statuses as of 08/10/2022) [facility] Narrative* Problem [...] of this encounter (statuses as of 09/07/2022) [facility] Narrative* Problem [...] of this encounter (statuses as of 10/19/2022) [facility] Narrative* Problem [...] of this encounter (statuses as of 11/26/2022) [facility] Narrative* Problem [...] of this encounter (statuses as of 12/26/2022) [facility] Narrative* Problem [...] of this encounter (statuses as of 12/26/2022) [facility] Narrative* Problem [...] of this encounter (statuses as of 01/26/2023) [facility] Narrative* Problem [...] of this encounter (statuses as of 01/27/2023) [facility] Narrative* Problem [...] of this encounter (statuses as of 02/21/2023) [facility] Narrative* Problem [...] of this encounter (statuses as of 04/13/2023) [facility] Narrative* Problem [...] of this encounter (statuses as of 05/05/2023) [facility] Narrative* Problem [...] of this encounter (statuses as of 05/22/2023) [facility] Narrative* Problem [...] of this encounter (statuses as of 06/23/2023) [facility] Narrative* Problem [...] as of this encounter (statuses as of 07/07/2023) [facility] Narrative* Problem [...] as of this encounter (statuses as of 07/15/2023) [facility] Diagnosis Hypothyroidism, unspecified type [facility] this [facility] Diagnosis Bilateral foot pain- Primary Pain in limb Bilateral foot pain Pain in limb Bilateral foot pain Pain in limb [facility] Diagnosis Concentration deficit Attention or concentration deficit [facility] this [facility] Diagnosis Anxiety with depression Mood disorder (HCC) Unspecified episodic mood disorder [facility] Diagnosis Anxiety with depression- Primary Mood disorder (HCC) Unspecified episodic mood disorder Concentration deficit Attention or concentration deficit Hypothyroidism, unspecified type Vitamin B12 deficiency Other B-complex deficiencies Vitamin D deficiency Unspecified vitamin D deficiency Fatigue, unspecified type Dyslipidemia Other and unspecified hyperlipidemia [facility] Diagnosis Encounter for screening mammogram for breast cancer [facility] Diagnosis Concentration deficit Attention or concentration deficit [facility] Diagnosis Situational insomnia Transient disorder of initiating or maintaining sleep Anxiety with depression [facility] Diagnosis Concentration deficit Attention or concentration deficit [facility] Diagnosis Age-related cataract of both eyes, unspecified age-related cataract type- Primary Double vision Diplopia Vitamin B12 deficiency Other B-complex deficiencies Vitamin D deficiency Unspecified vitamin D deficiency Hypothyroidism, unspecified type Dyslipidemia Other and unspecified hyperlipidemia Hyperglycemia Other abnormal glucose Anxiety with depression [facility] Diagnosis Concentration deficit Attention or concentration deficit [facility] Diagnosis Vitamin B12 deficiency- Primary Other B-complex deficiencies Vitamin D deficiency Unspecified vitamin D deficiency Dyslipidemia Other and unspecified hyperlipidemia Hypothyroidism, unspecified type Elevated alkaline phosphatase level Other nonspecific abnormal serum enzyme levels Chronic right shoulder pain Pain in joint, shoulder region Chronic pain of right ankle [facility] noteNo assessment information availableWHocking [facility] Work Phone: Evaluation note* Diagnosis Elevated alkaline phosphatase level- Primary Other nonspecific abnormal serum enzyme levels [facility] Diagnosis Vasovagal symptom- Primary Elevated alkaline [...] left vertebral artery [facility] Diagnosis Hypothyroidism, unspecified type [facility] Diagnosis Flu-like symptoms- Primary Other general symptoms Elevated alkaline phosphatase level Other nonspecific abnormal serum enzyme levels [facility] this [facility] Diagnosis Right ankle swelling- Primary Effusion of ankle and foot joint Encounter for screening for osteoporosis Special screening for osteoporosis Encounter for screening mammogram for malignant neoplasm of breast Other screening mammogram [facility] Diagnosis Near syncope- Primary Syncope and collapse [facility] Diagnosis Concentration deficit Attention or concentration deficit [facility] Diagnosis Dyslipidemia- Primary Other and unspecified hyperlipidemia Hair thinning Alopecia, unspecified Fatigue, unspecified type Tendinitis of right ankle Tenosynovitis of foot and ankle SOB (shortness of breath) Shortness of breath Hypothyroidism, unspecified type Screening for colon cancer Special screening for malignant neoplasms, colon Concentration deficit Attention or concentration deficit Anxiety with depression [facility] Diagnosis SOB (shortness of breath) Shortness of breath [facility]* Diagnosis SOB (shortness of breath) Shortness of breath [facility]* Diagnosis Dermatitis contact- Primary Hypothyroidism, unspecified type [facility]* Diagnosis Elevated ferritin- Primary Other abnormal blood chemistry Rash and nonspecific skin eruption Rash and other nonspecific skin eruption Elevated alkaline phosphatase level Other nonspecific abnormal serum enzyme levels Dermatitis contact Hypothyroidism, unspecified type Dyslipidemia Other and unspecified hyperlipidemia Mood disorder (HCC) Unspecified episodic mood disorder Fatigue, unspecified type Hyperglycemia Other abnormal glucose [facility]* Diagnosis Adjustment insomnia- Primary Transient disorder of initiating or maintaining sleep Anxiety with depression 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), and cerebral infarction without residual deficits [facility]* Diagnosis Concentration deficit Attention or concentration deficit documented in this encounter [facility] note* Diagnosis Situational insomnia Transient disorder of initiating or maintaining sleep Anxiety with depression [facility]* Diagnosis Sore throat- Primary Acute pharyngitis Influenza-like illness Influenza with other respiratory manifestations [facility]* Diagnosis Concentration deficit Attention or concentration deficit documented in this encounter [facility] note* Diagnosis Encounter for screening mammogram for breast cancer documented [facility] ([facility]arrative[facility] Diagnostic Procedure Only (Routine) - Pending Review Specialty Diagnoses / Procedures Referred By Cassie t Referred To Contact [facility] Diagnoses Encounter for screening mammogram for breast cancer Procedures MANDO SCREENING SCREENING MAMMOGRAPHY BI 2-VIEW BREAST INC Shin Peguero DO [address] [place] [address] [facility] [address] [place] [address] Referral ID Status Reason Start Date Expiration Date Visits Requested Visits Authorized [id number] Pending Review Auto-Generat ed Referral 11/10/2021 12/10/2022 1 1 [facility] ([facility] Diagnostic Procedure Only (Routine) - Pending Review Specialty Diagnoses / Procedures Referred By Kiaraac t Referred To Contact US IMAGING Diagnoses Elevated alkaline phosphatase level Procedures US ABD RT UPPER QUADRANT US ABDOMINAL REAL TIME W/IMAGE LIMITED Shin Arias DO [address] [place] [address] Us [facility] Referral ID Status Reason Start Date Expiration Date Visits Requested Visits Authorized [id number] Pending Review Auto-Generat ed Referral 2 06/02/2023 1 1 [facility] ([facility]ative)* Diagnostic Procedure Only (Routine) - Closed Specialty Diagnoses / Procedures Referred By Kiaraac t Referred To Contact XR IMAGING Diagnoses Right ankle swelling Procedures XR ANKLE GENERAL 3V AP/LAT/OBL RIGHT RADEX ANKLE COMPLETE MINIMUM 3 VIEWS Jossy Gustafson APRN.SEARCH DIRECTOR [address] [place] [address] Xr Imaging Referral ID Status Reason Start Date Expiration Date V isits Requested Visits Authorized [id number] Closed Auto-Generate d Referral 06/06/2022 07/06/2023 1 1 * Diagnostic Procedure Only (Routine) - Pending Review Specialty Diagnoses / Procedures Referred By Cassie t Referred To Contact [facility] Diagnoses Encounter for screening mammogram for malignant neoplasm of breast Procedures MANDO SCREENING SCREENING MAMMOGRAPHY BI 2-VIEW BREAST INC CAD Jossy Gustafson APRN.SEARCH DIRECTOR [address] [place] [address] [facility] [address] [place] [address] Referral ID Status Reason Start Date Expiration Date Visits Requested Visits Authorized [id number] Pending Review Auto-Generat ed Referral 06/06/2022 07/06/2023 1 1 [facility] ([facility] Outpatient Procedure (Routine) - Pending Review Specialty Diagnoses / Procedures Referred By Cassie t Referred To Contact [facility] Diagnoses Near syncope Procedures STRESS ECHO TREADMILL ECHO TTHRC R-T 2D W/WO M-MODE COMPLETE REST&ST Alivia Leyva PA-C [address] [place] [address] [address] Referral ID Status Reason Start Date Expiration Date Visits Requested Visits Authorized [id number] Pending Review Auto-Generat ed Referral 05/19/2022 05/19/2023 1 1 [facility] ([facility]ative[facility] Outpatient Procedure (Routine) - Authorized Specialty Diagnoses / Procedures Referred By Contac t Referred To Contact [facility] Diagnoses SOB (shortness of breath) Procedures LUNG VOLUMES Shin Arias DO [address] [place] [address] [address] Referral ID Status Reason Start Date Expiration Date Visits Requested Visits Authorized [id number] Authorized Auto-Generat ed Referral 07/19/2022 08/18/2023 1 1 * Outpatient Procedure (Routine) - Authorized Specialty Diagnoses / Procedures Referred By Contac t Referred To Contact [facility] Diagnoses SOB (shortness of breath) Procedures SPIROMETRY - BASELINE AND POST DILATOR BRNCDILAT RSPSE SPMTRY PRE&POST-BRNCDILAT ADMN Shin Arias, DO [address] [place] [address] [address] Referral ID Status Reason Start Date Expiration Date Visits Requested Visits Authorized [id number] Authorized Auto-Generat ed Referral 07/19/2022 08/18/2023 1 1 [facility] ([facility] Diagnostic Procedure Only (Routine) - Pending Review Specialty Diagnoses / Procedures Referred By Contac t Referred To Contact [facility] Diagnoses Encounter for screening mammogram for breast cancer Procedures MANDO SCREENING SCREENING MAMMOGRAPHY BI 2-VIEW BREAST INC Shin Peguero DO [address] [place] [address] [facility] [address] [place] [address] Referral ID Status Reason Start Date Expiration Date Visits Requested Visits Authorized [id number] Pending Review Auto-Generat ed Referral 05/17/2023 06/15/2024 1 1 [facility] Summary Purpose Family History Relationship Condition Age at Onset Recorded Date/T claus father Malignant neoplasm Unknown mother Hypertension Unknown grandfather Cardiac disease Unknown sister Malignant neoplasm Unknown Advance Directives Documents on File Type Date Recorded 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 [address] [place] [address] Referral ID Status Reason Start Date Expiration Date V isits Requested Visits Authorized [id number] New Request 07/29/2021 08/23/2022 1 1 Specialty Diagnoses / Procedures Referred By Cassie t Referred To Contact Diagnoses Bilateral foot pain Procedures XR FOOT LEFT 3 VIEWS Atway, Bairon Lewis DPM [address] [facility] [address] [place] [address] Referral ID Status Reason Start Date Expiration Date V isits Requested Visits Authorized [id number] New Request 07/29/2021 08/23/2022 1 1 Specialty Diagnoses / Procedures Referred By Cassie t Referred To Contact Ophthalmology Diagnoses Age-related cataract of both eyes, unspecified age-related cataract type Double vision Procedures CONSULT TO OPHTHALMOLOGY OFFICE/OUTPATIENT [facility] HIGH MDM 60-74 MINUTES Shin Arias, DO [address] [place] [address] Referral ID Status Reason Start Date Expiration Date Visits Requested Visits Authorized [id number] Pending Review PCP Requested Referral 01/21/2022 01/21/2023 1 1 Health Concerns Infection Onset Date Last Indicated Resolved Time COVID-19 Confirmed 01/25/2023 01/25/2023 Additional Source Comments INFORMATION SOURCE (unrecogn ized section and content) DATE CREATED AUTHOR 11/02/2017 [facility] DATE CREATED AUTHOR AUTHOR'S ORGANIZ ATION 08/21/2021 [facility] DATE CREATED AUTHOR AUTHOR'S ORGANIZ ATION 06/12/2023 [facility] DATE CREATED AUTHOR AUTHOR'S ORGANIZ ATION 07/04/2023 [facility] Source Comments (unrecognize d section and content) In the event this informatio n is protected by the Federal Confidentiality of Alcohol and Drug Abuse Patient Records regulations: The Federal rules restrict any use of the information to criminally investigate or prosecute any alcohol or drug abuse patient.[facility] event this information is protected by the Federal Confidentiality of Alcohol and Drug Abuse Patient Records regulations: The Federal rules restrict any use of the information to criminally investigate or prosecute any alcohol or drug abuse patient.[facility] the event this information is protected by the Federal Confidentiality of Alcohol and Drug Abuse Patient Records regulations: The Federal rules restrict any use of the information to criminally investigate or prosecute any alcohol or drug abuse patient.[facility] the event this information is protected by the Federal Confidentiality of Alcohol and Drug Abuse Patient Records regulations: The Federal rules restrict any use of the information to criminally investigate or prosecute any alcohol or drug abuse patient.[facility] the event this information is protected by the Federal Confidentiality of Alcohol and Drug Abuse Patient Records regulations: The Federal rules restrict any use of the information to criminally investigate or prosecute any alcohol or drug abuse patient.[facility] the event this information is protected by the Federal Confidentiality of Alcohol and Drug Abuse Patient Records regulations: The Federal rules restrict any use of the information to criminally investigate or prosecute any alcohol or drug abuse patient.[facility] the event this information is protected by the Federal Confidentiality of Alcohol and Drug Abuse Patient Records regulations: The Federal rules restrict any use of the information to criminally investigate or prosecute any alcohol or drug abuse patient.[facility] the event this information is protected by the Federal Confidentiality of Alcohol and Drug Abuse Patient Records regulations: The Federal rules restrict any use of the information to criminally investigate or prosecute any alcohol or drug abuse patient.[facility] the event this information is protected by the Federal Confidentiality of Alcohol and Drug Abuse Patient Records regulations: The Federal rules restrict any use of the information to criminally investigate or prosecute any alcohol or drug abuse patient.[facility] the event this information is protected by the Federal Confidentiality of Alcohol and Drug Abuse Patient Records regulations: The Federal rules restrict any use of the information to criminally investigate or prosecute any alcohol or drug abuse patient.[facility] event this information is protected by the Federal Confidentiality of Alcohol and Drug Abuse Patient Records regulations: The Federal rules restrict any use of the information to criminally investigate or prosecute any alcohol or drug abuse patient.[facility] event this information is protected by the Federal Confidentiality of Alcohol and Drug Abuse Patient Records regulations: The Federal rules restrict any use of the information to criminally investigate or prosecute any alcohol or drug abuse patient.[facility] event this information is protected by the Federal Confidentiality of Alcohol and Drug Abuse Patient Records regulations: The Federal rules restrict any use of the information to criminally investigate or prosecute any alcohol or drug abuse patient.[facility] event this information is protected by the Federal Confidentiality of Alcohol and Drug Abuse Patient Records regulations: The Federal rules restrict any use of the information to criminally investigate or prosecute any alcohol or drug abuse patient.[facility] the event this information is protected by the Federal Confidentiality of Alcohol and Drug Abuse Patient Records regulations: The Federal rules restrict any use of the information to criminally investigate or prosecute any alcohol or drug abuse patient.[facility] the event this information is protected by the Federal Confidentiality of Alcohol and Drug Abuse Patient Records regulations: The Federal rules restrict any use of the information to criminally investigate or prosecute any alcohol or drug abuse patient.[facility] the event this information is protected by the Federal Confidentiality of Alcohol and Drug Abuse Patient Records regulations: The Federal rules restrict any use of the information to criminally investigate or prosecute any alcohol or drug abuse patient.[facility] the event this information is protected by the Federal Confidentiality of Alcohol and Drug Abuse Patient Records regulations: The Federal rules restrict any use of the information to criminally investigate or prosecute any alcohol or drug abuse patient.[facility] the event this information is protected by the Federal Confidentiality of Alcohol and Drug Abuse Patient Records regulations: The Federal rules restrict any use of the information to criminally investigate or prosecute any alcohol or drug abuse patient.[facility] the event this information is protected by the Federal Confidentiality of Alcohol and Drug Abuse Patient Records regulations: The Federal rules restrict any use of the information to criminally investigate or prosecute any alcohol or drug abuse patient.[facility] the event this information is protected by the Federal Confidentiality of Alcohol and Drug Abuse Patient Records regulations: The Federal rules restrict any use of the information to criminally investigate or prosecute any alcohol or drug abuse patient.[facility] the event this information is protected by the Federal Confidentiality of Alcohol and Drug Abuse Patient Records regulations: The Federal rules restrict any use of the information to criminally investigate or prosecute any alcohol or drug abuse patient.[facility] the event this information is protected by the Federal Confidentiality of Alcohol and Drug Abuse Patient Records regulations: The Federal rules restrict any use of the information to criminally investigate or prosecute any alcohol or drug abuse patient.[facility] the event this information is protected by the Federal Confidentiality of Alcohol and Drug Abuse Patient Records regulations: The Federal rules restrict any use of the information to criminally investigate or prosecute any alcohol or drug abuse patient.[facility] the event this information is protected by the Federal Confidentiality of Alcohol and Drug Abuse Patient Records regulations: The Federal rules restrict any use of the information to criminally investigate or prosecute any alcohol or drug abuse patient.[facility] the event this information is protected by the Federal Confidentiality of Alcohol and Drug Abuse Patient Records regulations: The Federal rules restrict any use of the information to criminally investigate or prosecute any alcohol or drug abuse patient.[facility] the event this information is protected by the Federal Confidentiality of Alcohol and Drug Abuse Patient Records regulations: The Federal rules restrict any use of the information to criminally investigate or prosecute any alcohol or drug abuse patient.[facility] the event this information is protected by the Federal Confidentiality of Alcohol and Drug Abuse Patient Records regulations: The Federal rules restrict any use of the information to criminally investigate or prosecute any alcohol or drug abuse patient.[facility] the event this information is protected by the Federal Confidentiality of Alcohol and Drug Abuse Patient Records regulations: The Federal rules restrict any use of the information to criminally investigate or prosecute any alcohol or drug abuse patient.[facility] the event this information is protected by the Federal Confidentiality of Alcohol and Drug Abuse Patient Records regulations: The Federal rules restrict any use of the information to criminally investigate or prosecute any alcohol or drug abuse patient.[facility] HospitalIn the event this information is protected by the Federal Confidentiality of Alcohol and Drug Abuse Patient Records regulations: The Federal rules restrict any use of the information to criminally investigate or prosecute any alcohol or drug abuse patient.[facility] HospitalIn the event this information is protected by the Federal Confidentiality of Alcohol and Drug Abuse Patient Records regulations: The Federal rules restrict any use of the information to criminally investigate or prosecute any alcohol or drug abuse patient.[facility] HospitalIn the event this information is protected by the Federal Confidentiality of Alcohol and Drug Abuse Patient Records regulations: The Federal rules restrict any use of the information to criminally investigate or prosecute any alcohol or drug abuse patient.[facility] HospitalIn the event this information is protected by the Federal Confidentiality of Alcohol and Drug Abuse Patient Records regulations: The Federal rules restrict any use of the information to criminally investigate or prosecute any alcohol or drug abuse patient.[facility] HospitalIn the event this information is protected by the Federal Confidentiality of Alcohol and Drug Abuse Patient Records regulations: The Federal rules restrict any use of the information to criminally investigate or prosecute any alcohol or drug abuse patient.[facility] HospitalIn the event this information is protected by the Federal Confidentiality of Alcohol and Drug Abuse Patient Records regulations: The Federal rules restrict any use of the information to criminally investigate or prosecute any alcohol or drug abuse patient.[facility] HospitalIn the event this information is protected by the Federal Confidentiality of Alcohol and Drug Abuse Patient Records regulations: The Federal rules restrict any use of the information to criminally investigate or prosecute any alcohol or drug abuse patient.[facility] HospitalIn the event this information is protected by the Federal Confidentiality of Alcohol and Drug Abuse Patient Records regulations: The Federal rules restrict any use of the information to criminally investigate or prosecute any alcohol or drug abuse patient.[facility] HospitalIn the event this information is protected by the Federal Confidentiality of Alcohol and Drug Abuse Patient Records regulations: The Federal rules restrict any use of the information to criminally investigate or prosecute any alcohol or drug abuse patient.[facility] HospitalIn the event this information is protected by the Federal Confidentiality of Alcohol and Drug Abuse Patient Records regulations: The Federal rules restrict any use of the information to criminally investigate or prosecute any alcohol or drug abuse patient.[facility] HospitalIn the event this information is protected by the Federal Confidentiality of Alcohol and Drug Abuse Patient Records regulations: The Federal rules restrict any use of the information to criminally investigate or prosecute any alcohol or drug abuse patient.[facility] HospitalIn the event this information is protected by the Federal Confidentiality of Alcohol and Drug Abuse Patient Records regulations: The Federal rules restrict any use of the information to criminally investigate or prosecute any alcohol or drug abuse patient.[facility] HospitalIn the event this information is protected by the Federal Confidentiality of Alcohol and Drug Abuse Patient Records regulations: The Federal rules restrict any use of the information to criminally investigate or prosecute any alcohol or drug abuse patient.[facility] HospitalIn the event this information is protected by the Federal Confidentiality of Alcohol and Drug Abuse Patient Records regulations: The Federal rules restrict any use of the information to criminally investigate or prosecute any alcohol or drug abuse patient.[facility] Care Teams (unrecognized sec tion and content) Daycare Director Relationship Specialty Start Date End Date Shin Arias, [address] [place] [address] PCP - General Family Practice 10/28/14 Daycare Director Relationship Specialty Start Date End Date Shin Arias DO PCP - General Family Medicine 10/03/18 Daycare Director Relationship Specialty Start Date End Date Shin Arias, DO [address] [place] [address] PCP - General Family Practice 10/28/14 Daycare Director Relationship Specialty Start Date End Date Shin Arias, DO [address] [place] [address] PCP - General Family Practice 10/28/14 Daycare Director Relationship Specialty Start Date End Date Shin Arias, DO [address] [place] [address] PCP - General Family Practice 10/28/14 Daycare Director Relationship Specialty Start Date End Date Shin Arias, DO [address] [place] [address] PCP - General Family Practice 10/28/14 Daycare Director Relationship Specialty Start Date End Date Shin Arais, DO [address] [place] [address] PCP - General Family Practice 10/28/14 Daycare Director Relationship Specialty Start Date End Date Shin Arias, DO [address] [place] [address] PCP - General Family Practice 10/28/14 Daycare Director Relationship Specialty Start Date End Date Shin Arias, DO [address] [place] [address] PCP - General Family Practice 10/28/14 Daycare Director Relationship Specialty Start Date End Date Shin Arias, DO [address] [place] [address] PCP - General Family Medicine 10/28/14 Daycare Director Relationship Specialty Start Date End Date Shin Arias, DO [address] [place] [address] PCP - General Family Medicine 10/28/14 Daycare Director Relationship Specialty Start Date End Date Shin Arias, DO [address] [place] [address] PCP - General Family Medicine 10/28/14 Daycare Director Relationship Specialty Start Date End Date Shin Arias, DO [address] [place] [address] PCP - General Family Medicine 10/28/14 Daycare Director Relationship Specialty Start Date End Date Shin Arias, DO [address] [place] [address] PCP - General Family Medicine 10/28/14 Daycare Director Relationship Specialty Start Date End Date Shin Arias, DO [address] [place] [address] PCP - General Family Medicine 10/28/14 Daycare Director Relationship Specialty Start Date End Date Shin Arias, DO [address] [place] [address] PCP - General Family Medicine 10/28/14 Daycare Director Relationship Specialty Start Date End Date Shin Arias, DO [address] [place] [address] PCP - General Family Medicine 10/28/14 Daycare Director Relationship Specialty Start Date End Date Shin Arias, DO [address] [place] [address] PCP - General Family Medicine 10/28/14 Daycare Director Relationship Specialty Start Date End Date Shin Arias, DO [address] [place] [address] PCP - General Family Medicine 10/28/14 Daycare Director Relationship Specialty Start Date End Date Shin Arias, DO [address] [place] [address] PCP - General Family Medicine 10/28/14 Daycare Director Relationship Specialty Start Date End Date Shin Arias, DO [address] [place] [address] PCP - General Family Medicine 10/28/14 Daycare Director Relationship Specialty Start Date End Date Shin Arias DO [address] [place] [address] PCP - General Family Medicine 10/28/14 Daycare Director Relationship Specialty Start Date End Date Shin Arias DO [address] [place] [address] PCP - General Family Medicine 10/28/14 Daycare Director Relationship Specialty Start Date End Date Shin Arias DO [address] [place] [address] PCP - General Family Medicine 10/28/14 Daycare Director Relationship Specialty Start Date End Date Shin Arias DO [address] [place] [address] PCP - General Family Medicine 10/28/14 Daycare Director Relationship Specialty Start Date End Date Shin Arias DO [address] [place] [address] PCP - General Family Medicine 10/28/14 Daycare Director Relationship Specialty Start Date End Date Shin Arias DO [address] [place] [address] PCP - General Family Medicine 10/28/14 Daycare Director Relationship Specialty Start Date End Date Shin Arisa, [address] [place] [address] PCP - General Family Medicine 10/28/14 Daycare Director Relationship Specialty Start Date End Date Shin Arias, [address] [place] [address] PCP - General Family Medicine 10/28/14 Daycare Director Relationship Specialty Start Date End Date Shin Arias DO [address] [place] [address] PCP - General Family Medicine 10/28/14 Daycare Director Relationship Specialty Start Date End Date Shin Arias DO [address] [place] [address] PCP - General Family Medicine 10/28/14 Daycare Director Relationship Specialty Start Date End Date Shin Arias, [address] [place] [address] PCP - General Family Medicine 10/28/14 Daycare Director Relationship Specialty Start Date End Date Shin Arias DO [address] [place] [address] PCP - General Family Medicine 10/28/14 Reason for Visit (unrecogniz ed section and content) Reason Comments Pain C/o bunion on rt chito t, hx of lft foot bunion sx in 2011 and had a bad time with it, has issues with it still, senior care problem, has numbness in the toes and has pn in the foot and up into the ankle, also has a hammertoe next to it, tried one remedies w/ some pn relief, has orthotics and wears good shoes w/ arch support Pain Specialty Diagnoses / Procedures Referred By Kiaralilliam t Referred To Contact Podiatry Diagnoses Foot pain, right Acquired deformity of right foot Shin Arias, [address] [place] [address] Bairon Lofton DPM [address] [place] [address] Referral ID Status Reason Start Date Expiration Date V isits Requested Visits Authorized [id number] New Request 07/22/2021 08/16/2022 1 1 Reason [...] Spirometry Specialty Diagnoses / Procedures Referred By Cassie t Referred To Contact [facility] Diagnoses SOB (shortness of breath) Procedures SPIROMETRY - BASELINE AND POST DILATOR BRNCDILAT RSPSE SPMTRY PRE&POST-BRNCDILAT ADMN Shin Arias L, DO [address] [place] [address] [facility] [place] [address] [place] [address] Referral ID Status Reason Start Date Expiration Date V isits Requested Visits Authorized [id number] Closed Auto-Generate d Referral 07/19/2022 08/18/2023 1 1 Specialty Diagnoses / Procedures Referred By Contac t Referred To Contact [facility] Diagnoses SOB (shortness of breath) Procedures LUNG VOLUMES Shin Arias, DO [address] [place] [address] [facility] [place] [address] [place] [address] Referral ID Status Reason Start Date Expiration Date V isits Requested Visits Authorized [id number] Closed Auto-Generate d Referral 07/19/2022 08/18/2023 1 [...] BE BASED ON THE PRIMARY CLINICAL RECORDS. [facility]. provides no warranty or guarantee of the accuracy or completeness of information in this document.
[2023-07-24 06:32] LABS: Basophils Absolute Auto 0.1 10^3/uL (0.0-0.1); Basophils Percent Auto 1.4 % (0.2-2.0); Eosinophils Absolute Auto 0.2 10^3/uL (0.0-0.7); Hemoglobin 13.3 g/dL (12.0-16.0); Immature Granulocytes Abs Auto 0.01 10^3/uL (0.00-0.03); Immature Granulocytes Pct Auto 0.2 % (0.0-0.5); Lymphocytes Absolute Auto 1.9 10^3/uL (1.2-3.8); Lymphocytes Percent Auto 37.6 % (20.5-60.0); Mean Corpuscular HGB Conc 32.4 g/dL (29.9-35.2); Mean Corpuscular Hemoglobin 30.1 pg (26.7-34.0); Mean Corpuscular Volume 92.8 fL (81.0-99.0); Mean Platelet Volume 9.7 fL (9.5-13.5); Monocytes Absolute Auto 0.4 10^3/uL (0.3-0.8); Monocytes Percent Auto 7.5 % (1.7-12.0); Neutrophils Absolute Auto 2.5 10^3/uL (1.4-6.5); Neutrophils Percent Auto 50.3 % (43.0-75.0); Platelet Count 184 10^3/uL (150-450); Red Blood Count 4.42 10^6/uL (4.20-5.40); Red Cell Distribution Width 12.7 % (11.0-15.0); White Blood Count 5.1 10^3/uL (4.0-11.0)
[2023-07-24 07:04] LABS: Glucometer 104 mg/dL (74-106)
[2023-07-24] MEDS: LACTATED RINGER'S SOLUTION 1,000 ML 50 ML IV ×2 (07:07→08:37)
[2023-07-24] MEDS: CEFAZOLIN SODIUM/DEXTROSE,ISO 2 GM/50 ML PIGGYBACK IV (07:48)
--- NOTE | 2023-07-24 07:52 | PC.NURSE ---
time out performed 729. Dr. Krause marked patient prior to time out. Patient hooked to all safety monitors and supplemental O2 administered NC. Patient positioned per anesthesia on left lateral side. Via ultrasound guidance Juarez [employer]PER [employer]S MANAGER initiated a popliteal block. Patient tolerated procedure well. Patient turned to back at this time and a Via ultrasound guidance Juarez SHOPPER INSIGHTS MANAGER initiated saphenous block. Patient tolerated procedure well. Patient cleaned up following end of procedure and denies any needs at this time.
--- NOTE | 2023-07-24 09:53 | P.ORON_ITS ---
Brief Operative Note Date of procedure: 07/24/23 Pre-op diagnosis: right hallux valgus, 2nd hammertoe with dislocation syndrome & contracture Post-op diagnosis: same as pre-op Procedure: PROCEDURE(S) PERFORMED: 1. First metatarsal phalangeal joint fusion 2. Fernando 2nd metatarsal osteotomy 3. 2nd hammertoe correction with PIPJ arthroplasty 4. 2nd extensor tenotomy with lengthening and repair *All procedures were performed on the RIGHT foot INDICATION FOR PROCEDURE: patient is a 67-year-old female who is having worsening pain, dysfunction and deformity of her right foot. Her forefoot symptoms are more significant then her hindfoot and she initially was treated nonoperatively. Nonoperative treatment for her right forefoot pain included but not limited to shoe and activity modification, rice therapy, OTC pain medicine and toe spacers. Patient noted that the great toe was under lapping the 2nd toe and she was having difficulty finding reasonable shoe wear. Due to her failure to respond to nonsurgical care and worsening symptoms patient wished to undergo surgical correction and I recommended the above procedures. INTRAOPERATIVE FINDINGS: valgus deformity of the great toe with cartilage thinning and erosion of approximately one third of the metatarsal head. Bone was soft and consistent with osteopenia. sagittal plane 2nd toe contracture consistent with a hammertoe. The PIPJ arthroplasty did improve alignment of the toe however dorsal contracture of the 2nd metatarsal phalangeal joint persisted as there was contracture of the extensor tendon. Once the extensor tendon was released there was improvement in MPJ alignment however the 2nd toe was sig nificantly longer than the 1st and due to residual contracture shortening 2nd metatarsal osteotomy was performed which alleviated all 2nd ray deformity. PROCEDURE IN DETAIL: Patient was identified in pre op and consent was reviewed. Correct side and site were identified and marked. Pre-op antibiotics were started. Patient was brought to OR suite and place on table in a supine position. General anesthesia was administered. A tourniquet was applied. Operative extremity was prepped and draped in usual sterile fashion. Formal time-out was performed and the foot/ankle were exsanguinated and tourniquet inflated. Incision created over dorsal aspect of the 1st MPJ. Bleeders coagulated. EHL protected throughout the procedure. Capsulotomy performed and McGlammry elevator inserted into 1st MPJ. Guide Pin place in 1st metatarsal head. Conical reamers used on 1st metatarsal head to remove cartilage and subchondral bone. Guide pin removed. Conical reamers used on proximal phalanx in a similar manner. 2.0 mm drill used to on each side of the joint. The site was irrigated. Bone allograft was then packed into the fusion site. A stab incision was placed on the medial aspect of the hallux and blunt dissection down to the proximal phalanx base was performed. A guide wire was then used to pin the MPJ in a rectus position under fluoroscopic guidance. Position was checked both on the table and under fluoroscopy. A saw was used to contour the dorsal aspect of the 1st metatarsal and proximal phalanx to accommodate plate fixation. A 3.[address] over the fusion site and temporarily fixed. Then fire pilot holes were drilled for locking 3.5 mm screws which were measured and placed according to the manufactor's standard directions. Again position was checked under fluoroscopy as well as on the table. Temporary fixation was removed and additional screws were placed. A 3.5 mm cannulated headed screw was inserted over the previously placed guide wire accordingly. Again position of the great toe and hardware placement were checked on the table and under fluoroscopy. The surgical site was irrigated with copious amounts of sterile saline. A dorsal incision over the 2nd digit and extended over the 2nd metatarsal was utilized to expose the extensor tendon. The tendon contracted therefore was tenotomized in a z-type fashion then reflected dorsally and proximally exposing the proximal interphalangeal joint and metatarsophalangeal joint. the head of the proximal phalanx was then removed with a sagittal saw and there was notable improvement of the contracture at the PIPJ however contracture at the metatarsal phalangeal joint persisted and the 2nd toe was relatively long compared to the 1st. Capsulotomy of the 2nd metatarsophalangeal joint was performed sharply. A McGlammry elevator was utilized to expose the 2nd metatarsal head and a sagittal saw was used to create an osteotomy parallel to the weightbearing surface of the foot. The metatarsal head was then translated proximally and temporarily fixated with a K wire and the elevator was removed. Position was checked under fluoroscopy followed by a 2.0 mm snap off screw which was placed from a dorsal plantar direction. A rongeur was used to remove the dorsal cortical shelf. Temporary fixation was removed. Surgical site was irrigated with copious amounts of sterile saline. incisions were closed in layers. The tourniquet was deflated and a prompt hyperemic response was noted. A dry sterile dressing consisting of Xeroform on the incisions followed by 4 x 4 gauze, ABDs, and Kerlix were applied. Multiple layers of cast padding were then applied to ensure all bony prominences were well-padded. A plaster posterior splint was then applied which was held in place by Zurdo wraps. Capillary refill time to all digits was evaluated and had appropriate response. POSTOPERATIVE PLAN: Discharge home under family's care Post op instructions provided verbally and written prescription(s) were placed in chart NWB operative foot/ankle x1 wk Follow-up in 1 week Implants: Medline plates and screws Isto Sparc 1 cc bone allograft Anesthesia: MAC and regional Surgeon: Gui Urias Ham Rolling Machine Operator: Diallo Krause Estimated blood loss (mL): 10 Tourniquet time (min): 86 Condition: stable Disposition: PACU
[2023-07-24 10:19] LABS: Glucometer 98 mg/dL (74-106)
--- NOTE | 2023-07-24 10:34 | XR_ITS ---
The [address] [address] Patient Name: HENRY BROCK MRN: [id number] date: 1955 Sex: F Assigned Patient Location: [facility] Current Patient Location: Accession/Order Number: [id number] Exam Date: 07/24/2023 10:28 Report Date: 07/24/2023 14:34 At the request of: MISAEL SMITH Procedure: XR foot RT min 3V PROCEDURE: XR foot RT min 3V COMPARISON: 06/06/2023 HISTORY: postop xr pacu FINDINGS: BONES:No acute fracture or dislocation. Interval reduction in hallux valgus with fusion first metatarsal-phalangeal joint. Interval osteotomy and screw placement at of the second metatarsal. SOFT TISSUES:Postsurgical swelling and subcutaneous edema EFFUSION:None visible. OTHER: Posterior splint obscures bone detail XR/XR foot RT min 3V IMPRESSION: Postsurgical changes Electronically authenticated by: JG RUTLEDGE Date: 07/24/2023 14:34
== END 2023-07-24 11:37 | disposition home or self-care (01) ==
PROVIDERS: Visit Provider Podiatrist Foot & Ankle Surgery
PROC: (CPT 28208; principal; 2023-07-24 07:30)
DX: M20.11 Hallux valgus (acquired), right foot (principal); M20.21 Hallux rigidus, right foot; M85.871 Other specified disorders of bone density and structure, right ankle and foot; M19.90 Unspecified osteoarthritis, unspecified site; E07.9 Disorder of thyroid, unspecified; Z86.73 Personal history of transient ischemic attack (TIA), and cerebral infarction without residual deficits; Z87.891 Personal history of nicotine dependence; S93.144A Subluxation of metatarsophalangeal joint of right lesser toe(s), initial encounter; M76.821 Posterior tibial tendinitis, right leg; M21.071 Valgus deformity, not elsewhere classified, right ankle
CPT/HCPCS: 28208; 28285; 28308; 28750; 36415; 64445; 64450; 73630; 76000; 76942; 82948; 85025; C1713; J1094; J2704

== ENCOUNTER 2023-08-22 13:46 | Outpatient (OUT) | payer MEDICARE, SELFPAY ==
--- NOTE | 2023-08-22 | XR_ITS ---
The [address] [address] Patient Name: HENRY BROCK MRN: [id number] date: 1955 Sex: F Assigned Patient Location: Current Patient Location: Accession/Order Number: [id number] Exam Date: 08/22/2023 14:05 Report Date: 08/23/2023 07:49 At the request of: SIERRA AUGUSTINE Procedure: XR foot RT min 3V PROCEDURE: XR foot RT min 3V COMPARISON: 07/24/2023 HISTORY: RIGHT FOOT PAIN FINDINGS: BONES:Stable fusion the first metatarsal-phalangeal joint with a plate and screws. Stable osteotomy and screw placement at of the second metatarsal. No new fracture or dislocation. No mechanical failure SOFT TISSUES:Forefoot soft tissue swelling EFFUSION:None visible. OTHER: Negative. XR/XR foot RT min 3V IMPRESSION: Stable postsurgical changes Electronically authenticated by: JG RUTLEDGE Date: 08/23/2023 07:49
--- OUTSIDE RECORDS SUMMARY | 2023-08-22 14:04 | XMS_ITS | CCD ---
Author Organization [facility] Care Team Providers Care Marketing Director Assisted Living Name Role Phone SHIN SCHWARTZ Unavailable Unavailable [facility] Unavailable Unavailable ARIAS, SHIN Mckeon Unavailable Unavailable Arias Shin NORMAN Primary Care Provider Arias Shin NORMAN Primary Care Provider ATWAY, SAID A Referring Unavailable ARIASSHIN Primary Care Unavailable ATWAY, SAID A Attending Unavailable ATWAY, SAID A Attending Unavailable SELF, SELF Referring Unavailable ARIAS, SHIN L Primary Care Unavailable ARIAS, SHIN L Primary Care Unavailable ATWAY, SAID A Referring Unavailable ARIAS, SHIN Mckeon Primary Care Unavailable ATWAY, SAID A Attending Unavailable Arias Shin NORMAN Primary Care Provider Arias DOShin Primary Care Provider Arias DOShin Primary Care Provider HUGO SHIN L Attending Unavailable ARIAS, SHIN L [...] Unavailable ARIAS, SHIN L Primary Care Unavailable CARL LEYVA Attending Unavailable ARIAS, SHIN L Primary Care Unavailable CARL LEYVA Attending Unavailable SHIN ARIAS L Primary Care Unavailable SHIN ARIAS L Primary Care Unavailable Shin Arias Primary Care Unavailable Shilo August Attending Unavailable Shin Arias Primary Care Unavailable Shin Arias Attending Unavailable Shin Arias Referring Unavailable Allergies Allergy Classification Reported Allergen(s) Allergy Type Date of Onset Reaction(s) Facility (20 sources) morphine; Translations: [MORPHINE SULFATE] Drug Allergy 5 Itching [facility] Repository (20 sources) sulfamethoxazole; Translations: [SULFAMETHOXAZOLE ] Drug Allergy 5 Hives [facility] Repository (20 sources) tea tree oil; Translations: [TEA TREE OIL] Drug Allergy 0 Rash [facility] Repository (2 sources) Morphine Drug Allergy 5 Itching [facility] (1 source) Trimethoprim Drug Allergy 0 unknown [facility] Work Phone: (1 source) tea tree Allergy to substance 0 unknown [facility] Work Phone: (1 source) Morphine Drug Allergy 0 [facility] Repository (1 source) Trimethoprim Drug Allergy 0 [facility] Repository (1 source) tea tree Drug allergy (disorder) 0 [facility] Repository Medications Current Medications Medication Drug [...] 0 11/08/2022 12/24/2022 Discontinued Start: 10-04-2022 End: 11-05-2022 take 1 tablet by mouth once daily dextroamphetamine-amphetamine (ADDERALL) 10 mg tablet Indications: Concentration deficit Take 0.5-1 tablets by mouth once daily for 30 days. 30 tablet 0 10/04/2022 11/05/2022 Discontinued Start: 06-20-2022 End: 09-30-2022 take 1 tablet by mouth once daily dextroamphetamine-amphetamine (ADDERALL) 10 mg tablet Indications: Concentration deficit Take 0.5-1 tablets by mouth once daily for 30 days. 30 tablet 0 06/21/2022 09/30/2022 Discontinued Start: 10-22-2021 End: 06-17-2022 take 1 tablet by mouth once daily dextroamphetamine-amphetamine (ADDERALL) 10 mg tablet Indications: Concentration deficit Take 0.5-1 tablets by mouth once daily for 30 days. 30 tablet 0 05/11/2022 06/17/2022 Discontinued Comment on above: Take 0.5-1 tablets b y mouth once daily for 30 days. Take 0.5-1 tablets b y mouth once daily for 90 days. Ca-D3-Mag Cf-Mxkv-Gmq-Ravi-Bor (Calcium 600-D3 Plus (Mag-Zinc)) 600 mg calcium- 800 unit-50 mg tablet (1 source) Start: 0 Ca-D3-Mag Ut-Npqt-Ooa-Ravi-Bor (Calcium 600-D3 Plus (Mag-Zinc)) 600 mg calcium- [...] 12:00am Start: 08-15-2017 take 1 capsule by [facility] once daily Cholecalciferol, Vitamin D3, 5,000 unit cap Take 1 capsule by mouth once daily. 90 capsule 3 08/15/2017 Active Comment on above: Take 1 capsule by [facility] once daily. docusate sodium 100 mg oral [...] (PF) 0.9% 10 mL injection (DEFINITY) sennosides, intermediate 8.6 mg oral tablet (1 source) Start: 10-05-19 take 1 tablet by mouth once daily [...] End: 11-25-2022 take 1 tablet by mouth every eight hours as needed cyclobenzaprine (FLEXERIL) 10 mg tablet Take 1 tablet by mouth three times daily as needed for muscle spasm. 30 tablet 0 04/22/2021 11/25/2022 Discontinued Comment on above: Take 1 tablet [...] Start: 11-25-2022 take 1 capsule by [facility] once daily FLUoxetine (PROZAC) 10 [...] 11:00pm Start: 10-04-2018 take 3 capsules by [facility] once daily fluoxetine 10 MG Cap capsule Take 3 capsules by mouth daily. 0 10/04/2018 Active Start: 08-02-2018 End: 10-11-2018 Fluoxetine (Prozac) 40 mg ca psule Discontinued 30 MG PO DAILY August 01, 2018 11:00pm October 11, 2018 8:58am Comment on above: Take 1 capsule by mo [facility] once daily. hydrOXYzine hydrochloride 25 mg oral tablet (4 sources) Antihistamine Start: 08-11-19 End: 11-26-19 take [...] on above: Take 1 capsule by mo [facility] once daily. mometasone furoate 0.001 mg/mg topical ointment (13 sources) Corticosteroid Start: 10-06-19 mometasone (ELOCON) 0.1 % ointment Indications: Rash and nonspecific skin eruption Apply to affected area once daily as needed. Once daily as needed on rash 15 g 2 10/05/2022 Active Comment on above: Apply to affected ar ea once daily as needed. Once daily as needed on rash mupirocin 0.02 mg/mg topical ointment (13 sources) RNA Synthetase Inhibitor Antibacterial Start: 10-06-19 mupirocin (BACTROBAN) 2 % ointment Indications: Rash and nonspecific skin eruption Apply to affected area twice daily as needed (skin infection). 30 g 0 10/05/2022 Active Comment on above: Apply to affected ar ea twice daily as needed (skin infection). omega 0-wri-fto-fish oil (FISH OIL) 100-160-1,000 mg cap (20 sources) omega 6-sux-hzs-fish oil (FISH OIL) 100-160-1,000 mg cap Take 1 capsule by mouth. 0 Active Comment on above: Take 1 capsule by [facility]. ondansetron 4 mg disintegrating oral tablet (3 sources) Serotonin-3 Receptor Antagonist Start: 10-04-19 19 End: 10-12-19 19 take 4 mg by mouth every six hours as needed Ondansetron Discontinued 4 MG PO EVERY 6 HOURS NEEDED October 03, 2018 8:27pm October 11, 2018 8:58am Start: 10-03-2018 take 1 tablet by [facility] every six hours as needed ondansetron 4 MG Tab tablet Take 1 tablet by mouth every 6 hours as needed for Nausea / Vomiting. 0 10/03/2018 Active Start: 09-29-2018 End: 10-03-2018 take 4 mg by mouth every eight hours as needed Ondansetron Discontinued 4 MG PO EVERY 8 HOURS NEEDED September 28, 2018 11:00pm October 03, 2018 8:27pm predniSONE 20 mg oral tablet (4 sources) Start: 08-10-2022 End: 11-25-2022 take 1 [...] Comment on above: Take by mouth. thyroid (intermediate) 60 mg oral tablet (20 sources) Start: [...] daily. 90 tablet 1 05/03/2023 Active Start: 08-10-2022 End: 02-07-2023 take 1 tablet by mouth once daily ARMOUR THYROID 60 mg tablet Indications: Hypothyroidism, unspecified type Take 1 tablet by mouth once daily. 90 tablet 1 02/08/2023 Active Start: 10-11-2018 take 90 mg by [...] AT BEDTIME FOR SLEEP 90 tablet 0 12/31/2021 12/26/2022 Discontinued Comment on above: Take 1-2 tablets by mouth daily at bedtime. For sleep TAKE 1 TO 2 TABLETS AT BEDTIME FOR SLEEP triamcinolone acetonide 5 mg/ml topical cream (20 sources) Corticosteroid Start: 08-10-2022 End: 10-05-2022 triamcinolone acetonide (KENALOG) 0.5 % cream Indications: Dermatitis contact Apply 1 application to affected area three times daily. For rash/itching. Apply sparingly. Avoid face/skin fold. 15 g 1 08/10/2022 10/05/2022 Discontinued Start: 08-15-2017 End: 08-10-2022 triamcinolone acetonide (JJ [...] Onset: 09-21-2020 09-21-2020 Chronic Heart valve disorders (2 sources) Tricuspid valve regurgitation; Translations: [Rheumatic tricuspid insufficiency] [...] 09-16-2015 Episodic Other and unspecified benign neoplasm (8 sources) Dysplastic nevus of skin; Translations: [Melanocytic [...] and Lateralon 06-20 Chest PA and Lateral [facility] Imaging Services [address] [place] [address] Chest PA and Lateral MR#: [id number] Acct: [id number] Name: HENRY OLIVEIRA Rep #: [id number] : 1955 F 67 From: Sathya Everett PCP: Dr. Shin Arias DO Status: [facility] Study: Chest PA and Lateral Date of Exam: 06/20/23 Exam# [id number] Ordering Dr: Shin Arias DO [id number] INDICATION: Shortness of breath EXAMINATION/TECHNIQUE: X-RAY - [...] EST , CC: Dr. Shin Arias DO Fabrication Department Supervisor: Signed Normal [facility] Echo Completeon 06-20-2023 Echo Complete [facility] Cardiovascular Services [address] [place] [address] Echo Complete 06/20/23 1324 MR#: [id number] Acct: [id number] Name: HENRY OLIVEIRA Rep #: [id number] : 1955 67 From: Shilo August MD [...] Date Dictated: 06/20/23 1324 Date Transcribed: 06/20/231623 Fabrication Department Supervisor: Signed [facility] 06-09-2023 [facility] Telephone (FAMPST) HENRY OLIVEIRA ([id number]) 1955 F Date Time Provider Department 06/09/23 SHIN ARIAS During your visit today, we recorded the following information about you: Mary Jo Alcantara 06/09/2023 4:24 PM Signed Tawana is calling Shin L Arias, DO today to request a RX to start generic synthroid as the [place] thyroid has become too expensive. Patient has not picked up that RX from [facility] as it was to costly. Please send the levothyroxine to [facility] if provider agrees. Patient is almost [...] calling: self Call patient at: on cell [phone] (home) [phone] (work) [phone] (cell) Was an appointment scheduled: No Closing statement: Results or non-symptom based questions: Thank you for calling [facility], your call will be returned within the next business day. [facility] Alivia Fagan RN 06/12/2023 9:27 AM Signed Pt wants to cancel this request. States she wants to stick with the [place] thyroid for now. Allergies As of Date: [...] daily as needed (skin infection). - omega 2-xfb-xtu-fish oil (FISH OIL) 100-160-1,000 mg cap Take [...] right-sided *11/01/2016 (more content not included)... Normal [facility] CNOVon 05-03-2023 CNOV Office Visit (FAMPWS ) HENRY OLIVEIRA ([id number]) 1955 F Date Time Provider Department 05/03/23 9:40 AM SHIN ARIAS FAMPWS During your visit today, we recorded the following information about you: Temperature Pulse Respiration Blood pressure 97.1 degrees 64/minute 16/minute 120/80 Weight 54.9 kg Shin Arias, 05/03/2023 2:17 PM Signed CC: Henry Oliveira is a 67 year old female who presents to the office for follow up HPI: Dave in office in October, at that time History of stroke 4 years ago, no new neurologic symptoms. Still able to drive without difficulty. Sometimes with low back pain/aching that comes and goes with prolonged standing or walking. 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 Did have some b/l [...] this brings her melyssa. 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 Interested in seeing Business Applications Analyst at [facility]. PAST MEDICAL HISTORY Diagnosis Date Abnormal glandular Papanicolaou smear of cervix Abn. Pap smear (cervix) Asymptomatic varicose veins Depressive disorder, not elsewhere classified 09/27/2006 Hearing decreased Hyperlipidemia Hypothyroidism 2010 HERNAN on CPAP [facility] Peripheral vascular disease, (more content not included)... Normal [facility] [id number] 05-03-2023 ECG01 Ventricular Rate : 5 2 BPM Atrial Rate : 52 BPM P-R Interval : 160 ms QRS Duration : 84 ms Q-T Interval : 442 ms QTC Calculation(Bazett) : 411 ms Calculated P Fabens : 67 degrees Calculated R Fabens : 28 degrees Calculated T Fabens : 55 degrees SINUS BRADYCARDIA OTHERWISE NORMAL ECG Confirmed by ISRAEL LIU D.O. ([id number]) on 05/19/2023 3:41:26 PM NAME : HENRY OLIVEIRA PID : [id number] : 1955 Gender : Female Race : ORD : Procedure Date : May 03 2023 10:54:51 Edit Date : May 19 2023 15:41:31 Diagnosis: SINUS BRADYCARDIA OTHERWISE NORMAL ECG Confirmed by ISRAEL LIU D.O. ([id number]) on 05/19/2023 3:41:26 PM Test Reason : Location : 185 : [facility] Overread By : ISRAEL LIU D.O. Edited By : ISRAEL LIU D.O. Referred By : , Acquired by : Ana arcos [facility] Bailey 02-09-2023 [facility] Telephone (FAMPWS) TEEHENRY ([id number]) 1955 F Date Time Provider Department 02/09/23 SHIN ARIAS During your visit today, we recorded the following information about you: Sera Dobson Ma 02/09/2023 8:48 AM Signed Received fax from pharmacy PA needed for Toano thyroid. Electronic PA submitted Sera Matt Ma, [...] Reason for Visit: Insurance Authorization [[id number]] Cmt: [place] thyroid Prescriptions as of 02/09/2023 - ARMOUR [...] daily as needed (skin infection). - omega 4-kwx-wmu-fish oil (FISH OIL) 100-160-1,000 mg cap Take [...] of ri (more content not included)... Normal [facility] CNPZainab 01-26-2023 CNPN Telephone (UCWSTR) HENRY OLIVEIRA ([id number]) 1955 F Date Time Provider Department 01/26/23 LIDA CARDENAS During your visit today, we recorded the [...] care provider or schedule a visit with [facility]. A test is not recommended to [...] tablet by mouth once daily. - omega 5-arg-sht-fish oil (FISH OIL) 100-160-1,000 mg cap Take [...] region [M99.0 (more content not included)... Normal [facility] Influenza virus A and B RNA and SARS-CoV-2 (COVID-19) N gene panel TAYLER+probe (Resp)on 01-26-2023 FLUAV RNA TAYLER+probe Ql (Unsp spec) Not detected Not Detected [facility] FLUBV RNA TAYLER+probe Ql (Unsp spec) Not detected Not Detected [facility] SARS-CoV-2 (COVID-19) RNA TAYLER+probe Ql (Resp) Detected Abnormal See comment [facility] CNOVon 01-25-2023 CNOV Office Visit (UCTR ) HENRY OLIVEIRA ([id number]) 1955 F Date Time Provider Department 01/25/23 3:30 PM [facility]RIS RENDON [facility] During your visit today, we recorded [...] 1 tablet by mouth once daily. omega 0-mfh-fdf-fish oil (FISH OIL) 100-160-1,000 mg cap Take [...] ke illness [J11.1] Order(s):STREP A MOLECULAR (POC) [6702815] Order #: [id number]. #:[id number] COVID AND INFLUENZA A/B NAAT, ROUTINE [SQCOVFLU] Order #: [id number]. #:[id number] Prescriptions as of 01/25/2023 - dextroamphetamine-amph etamine [...] ARMOUR THYROID (more content not included)... Normal [facility] FLUABV + SARS-CoV-2 Pnl Resp TAYLER+prbon 01-25-2023 Influenza virus A and B RNA and SARS-CoV-2 (COVID-19) N gene panel TAYLER+probe (Resp) COVID 19 RESULT: Detected The method used is RT-PCR or an equivalent NAAT method. Reference Range (the expected result in uninfected individuals): Not detected INFLUENZA A PCR: Not detected INFLUENZA B PCR: Not detected Abnormal [facility] Comment on above: Performed By: #### 2 4323-8, 20119-7, 2276-4, 2284-8 #### [facility] CLIA [id number] [address] [facility] [place] [address] [place] STREP A MOLECULAR (POC)on Procedural Control Valid [facility] Strep A (POCT) Negative Negative [facility] CNOVon 12-26-2022 CNOV Office Visit (FAMPWS ) HENRY OLIVEIRA ([id number]) 1955 F Date Time Provider Department 12/26/22 8:00 AM [facility] During your visit today, we recorded [...] decreased Hyperlipidemia Hypothyroidism 2010 HERNAN on CPAP [facility] Peripheral vascular disease, unspecified (HCC) varicose [...] rash 15 (more content not included)... Normal [facility] CNOVon 11-25-2022 CNOV Office Visit (FAMPWS ) HENRY OLIVEIRA ([id number]) 1955 F Date Time Provider Department 11/25/22 [...] of self injury. Continues to work at [employer], job that she enjoys related to the [...] decreased Hyperlipidemia Hypothyroidism 2010 HERNAN on CPAP [facility]ipheral vascular disease, unspecified (HCC) varicose [...] (Shortness of (more content not included)... Normal [facility] CNOVon 10-19-2022 CNOV Office Visit (FAMPWS ) HENRY OLIVEIRA ([id number]) 1955 F Date Time Provider Department 10/19/22 8:40 AM SHIN ARIAS FAMPWS During your visit today, we recorded the following information about you: Temperature Pulse Respiration Blood pressure 98.2 degrees 64/minute 16/minute 130/74 Weight 58.5 kg Shin Arias DO 10/19/2022 11:09 AM Signed CC: Henryamie Camarilloenidshahnaz is a 67 year old female who presents to the office for follow up HPI: Seen in office 2 weeks ago as below Rash on right hand and skin changes around left great toe, using Mometasone ointment with benefit. Had this ointment at home. Wasn't getting better with triamcinolone cream given. 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 Did have some b/l [...] JUSTIN Oleary (more content not included)... Normal [facility] CBC W Auto Differential pane l (Bld)on 10-14-2022 Basophils (Bld) [#/Vol] 0.05 10*3/uL Normal <0.11 [facility] Comment on above: Order Comment: Speci men Type: BLOOD SPECIMEN Ordering Facility: [facility] Address: [address] [address] Performed By: #### 5 7021-8 #### [facility] CLIA [id number] [address] [place] [address] [place] Basophils/100 WBC (Bld) 1.0 % Normal [facility] Comment on above: Order Comment: Speci men Type: BLOOD SPECIMEN Ordering Facility: [facility] Address: [address] [place] [address] Performed By: #### 5 7021-8 #### [facility] CLIA [id number] [address] [place] [address] [place] Differential cell count method Nom (Bld) Auto Normal [facility] Comment on above: Order Comment: Speci men Type: BLOOD SPECIMEN Ordering Facility: [facility] Address: [address] [address] Performed By: #### 5 7021-8 #### [facility] CLIA [id number] [address] [place] [address] [place] Eosinophils (Bld) [#/Vol] 0.12 10*3/uL Normal <0.46 [facility] Comment on above: Order Comment: Speci men Type: BLOOD SPECIMEN Ordering Facility: [facility] Address: [address] [address] Performed By: #### 5 7021-8 #### [facility] CLIA [id number] [address] [place] [address] [place] Eosinophils/100 WBC (Bld) 2.4 % Normal [facility] Comment on above: Order Comment: Speci men Type: BLOOD SPECIMEN Ordering Facility: [facility] Address: [address] [place] [address] Performed By: #### 5 7021-8 #### [facility] CLIA [id number] [address] [place] [address] [place] Erythrocyte distribution width (RBC) [Ratio] 12.4 % Normal 11.5-15.0 [facility] Comment on above: Order Comment: Speci men Type: BLOOD SPECIMEN Ordering Facility: [facility] Address: [address] [place], [place] [address] Performed By: #### 5 7021-8 #### [facility] CLIA [id number] [address] [place] [address] [place] Hematocrit (Bld) [Volume fraction] 42.5 % Normal 36.0-46.0 [facility] Comment on above: Order Comment: Speci men Type: BLOOD SPECIMEN Ordering Facility: [facility] Address: [address] [place], [place] [address] Performed By: #### 5 7021-8 #### [facility] CLIA [id number] [address] [place] [address] [place] Hemoglobin (Bld) [Mass/Vol] 13.9 g/dL Normal 11.5-15.5 [facility] Comment on above: Order Comment: Speci men Type: BLOOD SPECIMEN Ordering Facility: [facility] Address: [address] Performed By: #### 5 7021-8 #### [facility] CLIA [id number] [address] [place] [address] [place] Immature granulocytes (Bld) [#/Vol] 10*3/uL Normal <0.10 [facility] Comment on above: Order Comment: Speci men Type: BLOOD SPECIMEN Ordering Facility: [facility] Address: [address] Performed By: #### 5 7021-8 #### [facility] CLIA [id number] [address] [place] [address] [place] Immature granulocytes/100 WBC (Bld) 0.2 % Normal [facility] Comment on above: Order Comment: Speci men Type: BLOOD SPECIMEN Ordering Facility: [facility] Address: [address] Performed By: #### 5 7021-8 #### [facility] CLIA [id number] [address] [place] [address] [place] Lymphocytes (Bld) [#/Vol] 1.71 10*3/uL Normal 1.00-4.00 [facility] Comment on above: Order Comment: Speci men Type: BLOOD SPECIMEN Ordering Facility: [facility] Address: [address] Performed By: #### 5 7021-8 #### [facility] CLIA [id number] [address] [place] [address] [place] Lymphocytes/100 WBC (Bld) 33.6 % Normal [facility] Comment on above: Order Comment: Speci men Type: BLOOD SPECIMEN Ordering Facility: [facility] Address: [address] Performed By: #### 5 7021-8 #### [facility] CLIA [id number] [address] [place] [address] [place] MCH (RBC) [Entitic mass] 30.2 pg Normal 26.0-34.0 [facility] Comment on above: Order Comment: Speci men Type: BLOOD SPECIMEN Ordering Facility: [facility] Address: [address] [place] [address] Performed By: #### 5 7021-8 #### [facility] CLIA [id number] [address] [place] [address] [place] MCHC (RBC) [Mass/Vol] 32.7 g/dL Normal 30.5-36.0 [facility] Comment on above: Order Comment: Speci men Type: BLOOD SPECIMEN Ordering Facility: [facility] Address: [address] [place] [address] Performed By: #### 5 7021-8 #### [facility] CLIA [id number] [address] [place] [address] [place] MCV (RBC) [Entitic vol] 92.2 fL Normal 80.0-100.0 [facility] Comment on above: Order Comment: Speci men Type: BLOOD SPECIMEN Ordering Facility: [facility] Address: [address] [place], [place] [address] Performed By: #### 5 7021-8 #### [facility] CLIA [id number] [address] [place] [address] [place] Monocytes (Bld) [#/Vol] 0.40 10*3/uL Normal <0.87 [facility] Comment on above: Order Comment: Speci men Type: BLOOD SPECIMEN Ordering Facility: [facility] Address: [address] [place], [place] [address] Performed By: #### 5 7021-8 #### [facility] CLIA [id number] [address] [place] [address] [place] Monocytes/100 WBC (Bld) 7.9 % Normal [facility] Comment on above: Order Comment: Speci men Type: BLOOD SPECIMEN Ordering Facility: [facility] Address: [address] Performed By: #### 5 7021-8 #### [facility] CLIA [id number] [address] [place] [address] [place] Neutrophils (Bld) [#/Vol] 2.80 10*3/uL Normal 1.45-7.50 [facility] Comment on above: Order Comment: Speci men Type: BLOOD SPECIMEN Ordering Facility: [facility] Address: [address] Performed By: #### 5 7021-8 #### [facility] CLIA [id number] [address] [place] [address] [place] Neutrophils/100 WBC (Bld) 54.9 % Normal [facility] Comment on above: Order Comment: Speci men Type: BLOOD SPECIMEN Ordering Facility: [facility] Address: [address] Performed By: #### 5 7021-8 #### [facility] CLIA [id number] [address] [place] [address] [place] Nucleated RBC (Bld) [#/Vol] 10*3/uL Normal <0.01 [facility] Comment on above: Order Comment: Speci men Type: BLOOD SPECIMEN Ordering Facility: [facility] Address: [address] Performed By: #### 5 7021-8 #### [facility] CLIA [id number] [address] [place] [address] [place] Nucleated RBC/100 WBC (Bld) [Ratio] 0.0 /100 WBC Normal [facility] Comment on above: Order Comment: Speci men Type: BLOOD SPECIMEN Ordering Facility: [facility] Address: [address] Performed By: #### 5 7021-8 #### [facility] CLIA [id number] [address] [place] [address] [place] Platelet mean volume (Bld) [Entitic vol] 11.1 fL Normal 9.0-12.7 [facility] Comment on above: Order Comment: Speci men Type: BLOOD SPECIMEN Ordering Facility: [facility] Address: [address] [place] [address] Performed By: #### 5 7021-8 #### [facility] CLIA [id number] [address] [place] [address] [place] Platelets (Bld) [#/Vol] 214 10*3/uL Normal 150-400 [facility] Comment on above: Order Comment: Speci men Type: BLOOD SPECIMEN Ordering Facility: [facility] Address: [address] [place], [place] [address] Performed By: #### 5 7021-8 #### [facility] CLIA [id number] [address] [place] [address] [place] RBC (Bld) [#/Vol] 4.61 10*6/uL Normal 3.90-5.20 [facility] Comment on above: Order Comment: Speci men Type: BLOOD SPECIMEN Ordering Facility: [facility] Address: [address] [place] [phone] Performed By: #### 5 7021-8 #### [facility] CLIA [id number] [address] [place] [address] [place] WBC (Bld) [#/Vol] 5.09 10*3/uL Normal 3.70-11.00 [facility] Comment on above: Order Comment: Speci men Type: BLOOD SPECIMEN Ordering Facility: [facility] Address: [address] [place] [phone] Performed By: #### 5 7021-8 #### [facility] CLIA [id number] [address] [place] [address] [place] Comprehensive metabolic 2000 panelon 10-14-2022 Albumin [Mass/Vol] 4.5 g/dL Normal 3.9-4.9 [facility] Comment on above: Order Comment: Speci men Type: BLOOD SPECIMEN Ordering Facility: [facility] Address: [address] [place] [address] Performed By: #### 2 4323-8, 63178-3, 2275-4, 2283-8 #### [facility] CLIA [id number] [address] [place] [address] [place] ALP [Catalytic activity/Vol] 104 U/L Normal 34-123 [facility] Comment on above: Order Comment: Speci men Type: BLOOD SPECIMEN Ordering Facility: [facility] Address: [address] [place] [address] Performed By: #### 2 4323-8, 44392-5, 2275-4, 2283-8 #### [facility] CLIA [id number] [address] [place] [address] [place] ALT [Catalytic activity/Vol] 14 U/L Normal 7-38 [facility] Comment on above: Order Comment: Speci men Type: BLOOD SPECIMEN Ordering Facility: [facility] Address: [address] [place] [address] Performed By: #### 2 4323-8, 76024-6, 2275-4, 2283-8 #### [facility] CLIA [id number] [address] [place] [address] [place] Anion gap [Moles/Vol] 12 mmol/L Normal 9-18 [facility] Comment on above: Order Comment: Speci men Type: BLOOD SPECIMEN Ordering Facility: [facility] Address: [address] [place] [address] Performed By: #### 2 4323-8, 16808-2, 2275-4, 2283-8 #### [facility] CLIA [id number] [address] [place] [address] [place] AST [Catalytic activity/Vol] 20 U/L Normal 13-35 [facility] Comment on above: Order Comment: Speci men Type: BLOOD SPECIMEN Ordering Facility: [facility] Address: [address] [place] [address] Performed By: #### 2 4323-8, 46156-7, 2275-4, 2283-8 #### [facility] CLIA [id number] [address] [place] [address] [place] Bilirubin [Mass/Vol] 0.5 mg/dL Normal 0.2-1.3 [facility] Comment on above: Order Comment: Speci men Type: BLOOD SPECIMEN Ordering Facility: [facility] Address: [address] [place] [address] Performed By: #### 2 4323-8, 54743-2, 2275-4, 8 #### [facility] CLIA [id number] [address] [place] [address] [place] Calcium [Mass/Vol] 9.7 mg/dL Normal 8.5-10.2 [facility] Comment on above: Order Comment: Speci men Type: BLOOD SPECIMEN Ordering Facility: [facility] Address: [address] [place] [address] Performed By: #### 2 4323-8, 96365-9, 2275-4, 2283-8 #### [facility] CLIA [id number] [address] [place] [address] [place] Chloride [Moles/Vol] 106 mmol/L High 97-105 [facility] Comment on above: Order Comment: Speci men Type: BLOOD SPECIMEN Ordering Facility: [facility] Address: [address] [place], [place] [address] Performed By: #### 2 4323-8, 29307-6, 2275-4, 2283-8 #### [facility] CLIA [id number] [address] [place] [address] [place] CO2 [Moles/Vol] 25 mmol/L Normal 22-30 [facility] Comment on above: Order Comment: Speci men Type: BLOOD SPECIMEN Ordering Facility: [facility] Address: [address] [place] [address] Performed By: #### 2 4323-8, 90398-7, 2275-4, 2283-8 #### [facility] CLIA [id number] [facility] [place] [address] [place] Creatinine [Mass/Vol] 0.56 mg/dL Low 0.58-0.96 [facility] Comment on above: Order Comment: Speci men Type: BLOOD SPECIMEN Ordering Facility: [facility] Address: [address] [place] [address] Performed By: #### 2 4323-8, 38127-3, 2275-4, 8 #### [facility] CLIA [id number] [address] [place] [address] [place] ESTIMATED GLOMERULAR FILTRATION RATE 100 mL/min/1.73m??? Normal >=60 [facility] Comment on above: Order Comment: Speci men Type: BLOOD SPECIMEN Ordering Facility: [facility] Address: [address] [place] [address] Result Comment: Letty mated Glomerular Filtration Rate [...] actual GFR. Performed By: #### 2 4323-8, 18424-8, 2275-4, 2283-8 #### [facility] CLIA [id number] [address] [place] [id number] [place] Glucose [Mass/Vol] 83 mg/dL Normal 74-99 [facility] Comment on above: Order Comment: Speci men Type: BLOOD SPECIMEN Ordering Facility: [facility] Address: [address] [place], [place] [phone] Result Comment: The [place] Diabetes Association (ADA) provides guidance for cutoff [...] Standards of Medical Care in Diabetes 2016, [place] Diabetes Association. Diabetes Care. 2016.39(Suppl 1). Performed By: #### 2 4323-8, 68154-2, 2275-4, 8 #### [facility] CLIA [id number] [address] [place] [address] [place] Potassium [Moles/Vol] 3.9 mmol/L Normal 3.7-5.1 [facility] Comment on above: Order Comment: Ciara levine Type: BLOOD SPECIMEN Ordering Facility: [facility] Address: [address] [place], [place] [phone] Performed By: #### 2 4323-8, 11693-2, 4, 8 #### [facility] CLIA [id number] [address] [place] [address] [place] Protein [Mass/Vol] 6.6 g/dL Normal 6.3-8.0 [facility] Comment on above: Order Comment: Ciara levine Type: BLOOD SPECIMEN Ordering Facility: [facility] Address: [address] [place], [place] [phone] Performed By: #### 2 4323-8, 11494-7, 2275-4, 8 #### [facility] CLIA [id number] [address] [place] [address] [place] Sodium [Moles/Vol] 143 mmol/L Normal 136-144 [facility] Comment on above: Order Comment: Speci men Type: BLOOD SPECIMEN Ordering Facility: [facility] Address: [address] [place] [address] Performed By: #### 2 4323-8, 99179-3, 2276-4, 2284-8 #### [facility] CLIA [id number] [address] [place] [address] [place] Urea nitrogen [Mass/Vol] 9 mg/dL Normal 7-21 [facility] Comment on above: Order Comment: Speci men Type: BLOOD SPECIMEN Ordering Facility: [facility] Address: [address] [place] [address] Performed By: #### 2 4323-8, 62792-7, 6-4, 2283-8 #### [facility] CLIA [id number] [address] [place] [address] [place] Ferritin SerPl-mCncon 2022 Ferritin [Mass/Vol] 170.0 ng/mL Normal 14.7-205.1 [facility] Comment on above: Order Comment: Speci men Type: BLOOD SPECIMEN Ordering Facility: [facility] Address: [address] [place] [address] Performed By: #### 2 4323-8, 46361-0, 6-4, 2284-8 #### [facility] CLIA [id number] [address] [place] [address] [place] Folate SerPl-mCncon 10-15-19 23 Folate [Mass/Vol] ng/mL Normal >4.7 [facility] Comment on above: Order Comment: Speci men Type: BLOOD SPECIMEN Ordering Facility: [facility] Address: [address] [place], [place] [address] Result Comment: A re sult of > 20 ng/mL is not necessarily indicative of a pathologic or treatable condition: it reflects a limitation of the test methodology. Assay reference range: 4.8 to 24.2 ng/mL. Suitable for detection of folate deficiency. Reference: Folate III (Folate III) [package insert V 1.0 Syriac]. Cristina Zephyr, [place], [place]: March 2015. Performed By: #### 2 4323-8, 86243-3, 2275-4, 2283-8 #### [facility] CLIA [id number] [address] [place] [address] [place] HbA1c (Bld)on 10-14-2022 Average glucose Estimated from glycated hemoglobin (Bld) [Mass/Vol] 100 mg/dL Normal [facility] Comment on above: Order Comment: Ciara levine Type: BLOOD SPECIMEN Ordering Facility: [facility] Address: [address] [place] [address] Result Comment: eAG: (Estimated average glucose) is a calculated value from HgbA1c and is entry level sales representative of the average blood glucose level in the last 2-3 month period. Performed By: #### 2 4323-8, 65245-4, 4, 8 #### [facility] CLIA [id number] [address] [place] [address] [place] HbA1c (Bld) [Mass fraction] 5.1 % Normal 4.3-5.6 [facility] Comment on above: Order Comment: Ciara levine Type: BLOOD SPECIMEN Ordering Facility: [facility] Address: [address] [place] [address] Result Comment: Amer [place] Diabetes Association guidelines indicate that patients with HgbA1c in the range 5.7-6.4% are at increased risk for development of diabetes, and intervention by lifestyle modification may be beneficial. HgbA1c greater or equal to 6.5% is considered diagnostic of diabetes. Performed By: #### 2 4323-8, 97379-1, 2275-4, 2283-8 #### [facility] CLIA [id number] [address] [place] Iron and Iron binding capaci ty panelon 10-14-2022 Iron [Mass/Vol] 119 ug/dL Normal 41-186 [facility] Comment on above: Order Comment: Speci men Type: BLOOD SPECIMEN Ordering Facility: [facility] Address: [address] [place] [address] Performed By: #### 2 4323-8, 57809-2, 6-4, 2283-8 #### [facility] CLIA [id number] [address] [place] [address] [place] Iron binding capacity [Mass/Vol] 277 ug/dL Normal 232-386 [facility] Comment on above: Order Comment: Speci men Type: BLOOD SPECIMEN Ordering Facility: [facility] Address: [address] [place] [address] Performed By: #### 2 4323-8, 53061-6, 2275-4, 2283-8 #### [facility] CLIA [id number] [address] [place] [address] OF [facility] Iron/TIBC [Molar ratio] 43.0 % Normal 15.0-57.0 [facility] Comment on above: Order Comment: Speci men Type: BLOOD SPECIMEN Ordering Facility: [facility] Address: [address] [place] [address] Performed By: #### 2 4323-8, 14188-0, 2275-4, 2283-8 #### [facility] CLIA [id number] [address] [place], [place] [id number] [place] Lipid 1996 panelon Cholesterol [Mass/Vol] 200 mg/dL High <200 [facility] Comment on above: Order Comment: Speci men Type: BLOOD SPECIMEN Ordering Facility: [facility] Address: [address] [place], [place] [phone] Result Comment: <200 mg/dL, Desirable 200-239 mg/dL, Borderline high >239 mg/dL, High Performed By: #### 2 4323-8, 48234-3, 2275-4, 8 #### [facility] CLIA [id number] [address] [place] [address] [place] Cholesterol in HDL [Mass/Vol] 71 mg/dL Normal >39 [facility] Comment on above: Order Comment: Alexanderi men Type: BLOOD SPECIMEN Ordering Facility: [facility] Address: [address] [place] [address] Result Comment: 40-5 9 mg/dL, Acceptable >59 mg/dL, High: Negative risk factor for coronary heart disease <40 mg/dL, Low: Positive risk factor for coronary heart disease Performed By: #### 2 4323-8, 10188-3, 2275-4, 8 #### [facility] CLIA [id number] [address] STATES [place] Cholesterol in LDL [Mass/Vol] 121 mg/dL High <100 [facility] Comment on above: Order Comment: Ciara levine Type: BLOOD SPECIMEN Ordering Facility: [facility] Address: [address] [place] [address] Result Comment: <100 mg/dL, Optimal 100-129 mg/dL, Near optimal/above optimal 130-159 mg/dL, Borderline high 160-189 mg/dL, High >189 mg/dL, Very high Secondary prevention optimal LDL Cholesterol levels are recommended to be < 70 mg/dL Performed By: #### 2 4323-8, 64303-7, 2275-4, 8 #### [facility] CLIA [id number] [address] [place] [address] [place] Cholesterol in LDL/Cholesterol in HDL [Mass ratio] 1.70 {ratio} Normal <2.54 [facility] Comment on above: Order Comment: Ciara levine Type: BLOOD SPECIMEN Ordering Facility: [facility] Address: [address] [place] [address] Result Comment: Refe rence: 1. National Cholesterol Education Program ATP III Guideline At-A-Glance Quick Desk Reference: National Heart, Lung, and Blood [place]. National Institutes of Health. 2001: NIH Publication No. 01-3305. 2. An International Atherosclerosis Society position paper: global recommendations for the management of dyslipidemia: executive summary, Atherosclerosis. 2014: 232(2):410-413. Performed By: #### 2 4323-8, 72977-5, 2275-4, 8 #### [facility] CLIA [id number] [address] [place] [address] [place] Cholesterol in VLDL [Mass/Vol] 8 mg/dL Normal <30 [facility] Comment on above: Order Comment: Speci men Type: BLOOD SPECIMEN Ordering Facility: [facility] Address: [address] [place] [address] Performed By: #### 2 4323-8, 19534-3, 2275-4, 8 #### [facility] CLIA [id number] [address] [place] [address] [place] Cholesterol non HDL [Mass/Vol] 129 mg/dL Normal <130 [facility] Comment on above: Order Comment: Speci men Type: BLOOD SPECIMEN Ordering Facility: [facility] Address: [address] [place] [address] Result Comment: <130 mg/dL, Optimal 130-159 mg/dL, Near optimal/above optimal 160-189 mg/dL, Borderline high 190-219 mg/dL, High >219 mg/dL, Very high Secondary prevention optimal non HDL Cholesterol levels are recommended to be <100 mg/dL Performed By: #### 2 4323-8, 29789-8, 2275-4, 8 #### [facility] CLIA [id number] [address] [place] [address] [place] Cholesterol.total/C holesterol in HDL [Mass ratio] 2.82 {ratio} Normal <5.10 [facility] Comment on above: Order Comment: Speci men Type: BLOOD SPECIMEN Ordering Facility: [facility] Address: [place] [address] Performed By: #### 2 4323-8, 74428-8, 2275-4, 2283-8 #### [facility] CLIA [id number] [address] [place] [address] [place] FASTING TIME 14 hrs Normal [facility] Comment on above: Order Comment: Speci men Type: BLOOD SPECIMEN Ordering Facility: [facility] Address: [address] Performed By: #### 2 4323-8, 45361-2, 2275-4, 2283-8 #### [facility] CLIA [id number] [address] [place] [address] [place] Triglyceride [Mass/Vol] 38 mg/dL Normal <150 [facility] Comment on above: Order Comment: Speci men Type: BLOOD SPECIMEN Ordering Facility: [facility] Address: [address] Result Comment: <150 mg/dL, Normal 150-199 mg/dL, Borderline high 200-499 mg/dL, High >499 mg/dL, Very high Performed By: #### 2 4323-8, 64584-5, 2275-4, 8 #### [facility] CLIA [id number] [address] [place] [address] [place] T3Free SerPl-mCncon 10-15-19 23 Free T3 [Mass/Vol] 5.2 pg/mL High 2.3-4.1 [facility] Comment on above: Order Comment: Speci men Type: BLOOD SPECIMEN Ordering Facility: [facility] Address: [address] [place] [address] Performed By: #### 2 4323-8, 97389-4, 2275-4, 8 #### [facility] CLIA [id number] [address] [place] [address] [place] T4 Free SerPl-mCncon 023 Free T4 [Mass/Vol] 1.2 ng/dL Normal 0.9-1.7 [facility] Comment on above: Order Comment: Speci men Type: BLOOD SPECIMEN Ordering Facility: [facility] Address: [address] [place] [address] Performed By: #### 2 4323-8, 82204-7, 6-4, 2283-8 #### [facility] CLIA [id number] [address] [place] [address] [place] TSH SerPl-aCncon 10-14-2022 TSH Qn 1.130 m[IU]/L Normal 0.270-4.200 [facility] Comment on above: Order Comment: Speci men Type: BLOOD SPECIMEN Ordering Facility: [facility] Address: [address] [place] [address] Performed By: #### 2 4323-8, 19690-4, 6-4, 8 #### [facility] CLIA [id number] [address] [place] [address] [place] VITAMIN B6/PYRIDOXINon 10-14 VITAMIN B6 73.3 nmol/L Normal 20.0-125.0 [facility] Comment on above: Order Comment: Speci julianna Type: BLOOD SPECIMENOrdering Facility: [facility] Address: [address] [place] [address] Result Comment: INTE RPRETIVE INFORMATION: Vitamin B6 (Pyridoxal 5-Phosphate) Pyridoxal 5'-phosphate measured in a specimen collected following an 8-hour or overnight fast accurately indicates vitamin B6 nutritional status. Non-fasting specimen concentration reflects recent vitamin intake. This test was developed and its performance characteristics determined by [employer] [facility]. It has not been cleared or approved by the [place] Food and Drug Administration. This test was performed in a CLIA certified laboratory and is intended for clinical purposes. Performed By: [facility] [address] [place] [address] Sexual Assault Response Coordinator: Steve Rios MD, PhD Performed By: #### V ITB6 ####[facility] [id number] [place] [address] CNOVon 10-05-2022 CNOV Office Visit (FAMPWS ) HENRY OLIVEIRA ([id number]) 1955 F Date Time Provider Department 10/05/22 8:20 AM SHIN ARIAS FAMPWS During your visit [...] given. 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[employer], is looking forward to this but concerned [...] decreased Hyperlipidemia Hypothyroidism 2010 HERNAN on CPAP [facility] Peripheral vascular disease, unspecified (HCC) varicose veins Sleep apnea CPAP Supraspinatus tendon tear 04/03/2012 right shoulder Vitamin B12 deficiency Vitamin D deficiency 10/30/2013 PAST SURGICAL HISTORY Procedure Laterality Date COLPOSCOPY CERVIX UPPER/ADJACENT VAGINA Colposcopy CORRECT BUNION,SIMPLE 12 Bunion, left DILATION AND CURETTAGE DXAND/THER NONOBSTETRIC 1980s Dilation AND curettage LIG/TRNSXJ FLP TUBE ABDL/VAG APPR UNI/BI COMPLETE Tubal ligation PAST SURGICAL HISTORY OF 11/2003 breast biopsy right, benign PAST SURGICAL HISTORY OF 1997 wrist surgery - after fracture, right PAST SURGICAL HISTORY OF 06/28/13 arthroscopy with open rotator cuff repair Current Outpatient Medications Medication Sig omega 0-bsr-tdb-fish oil (FISH OIL) 100-160-1,000 mg cap Take [...] b/l, na (more content not included)... Normal [facility] CNOVon 08-10-2022 CNOV Office Visit (FAMPWS ) TEEHENRY J ([id number]) 1955 F Date Time Provider Department 08/10/22 11:20 AM SHIN ARIAS FAMPWS During your visit today, we recorded the following information about you: Temperature Pulse Respiration Blood pressure 98.4 degrees 88/minute 16/minute 120/80 Weight 58.1 kg Shin Arias DO 08/10/2022 12:04 PM Signed CC: Henry Oliveira is a [...] Hyperlipidemia Hypothyroidism 2010 HERNAN on CPAP DME [facility] Peripheral vascular disease, unspecified (HCC) varicose veins [...] repair Current Outpatient Medications Medication Sig omega 9-nng-drv-fish oil (FISH OIL) 100-160-1,000 mg cap Take [...] - Topica (more content not included)... [facility] Telephone (FAMPWS) TEEHENRY Israel ([id number]) 1955 F Date Time Provider Department 08/09/22 SHIN ARIAS During your visit today, we recorded the following information about you: Breana Saha [facility] 08/09/2022 8:08 AM Signed Patient calling asking for appt today with PCP she has poison ismael rash and hands and feet and is spreading. Patient refuses to go to express care, aware MODEL TECHNICIAN are out of office today. Please advise Shin Arias DO 08/09/2022 5:22 PM Signed Please schedule her an appt. I have 3 openings tomorrow or can see MODEL TECHNICIAN as well DO Lupe Yarbrough [facility] 08/09/2022 5:26 PM Signed Appointment made message left on VM. Allergies As of Date: 08/09/2022 Noted Allergy Reaction BACTRIM (SULFAMETHOXAZOLE) 05/23/2014 4 - Hives MORPHINE SULFATE 03/30/2005 9 - Itching TEA TREE OIL 07/22/2009 2 - Rash Date Reviewed: 06/06/2022 Reviewed by: Jossy Gustafson APRN.[facility] - Fully Assessed Reason for Visit: Appointment [186] Prescriptions as of 08/09/2022 - ARMOUR THYROID 90 mg tablet Take 1 tablet by mouth once daily. - dextroamphetamine-amph etamine (ADDERALL) 10 mg tablet Take 0.5-1 tablets by mouth once daily for 30 days. - omega 3-xcy-gmi-fish oil (FISH OIL) 100-160-1,000 mg cap Take [...] with radiculopathy*03 (more content not included)... Normal [facility] CNPNon 08-03-2022 CNPN Telephone (FAMPWS) HENRY OLIVEIRA ([id number]) 1955 F Date Time Provider Department 08/03/22 [facility] During your visit today, we recorded the [...] 1 day a week Shin Arias DO [facility] 08/04/2022 8:48 AM Signed Left message for patient to return call [facility] Breana Puenteaaron [employer] 08/05/2022 8:38 AM Signed Patient returned call and went over results, notes from Dr Arias with understanding. Patient said she has been skipping one day a week for long time with her amour thyroid. Patient asking what did you want her to do now? Jossy Gustafson APRN.[facility] 08/05/2022 3:25 PM Signed Hold armour thyroid 2x per week. Joss[facility] Gustafson APRN.[facility] 08/05/2022 3:29 PM Signed Pt informed, verbalized understanding [facility] Allergies As of Date: 08/03/2022 Noted Allergy Reaction BACTRIM (SULFAMETHOXAZOLE) 05/23/2014 4 - Hives MORPHINE SULFATE 03/30/2005 9 - Itching TEA TREE OIL 07/22/2009 2 - Rash Date Reviewed: 06/06/2022 Reviewed by: Jossy Gustafson APRN.[facility] - Fully Assessed Reason for Visit: Results [95] Prescriptions as of 08/05/2022 - ARMOUR THYROID 90 mg tablet Take 1 tablet by mouth once daily. - dextroamphetamine-amph etamine (ADDERALL) 10 mg tablet Take 0.5-1 tablets by mouth once daily for 30 days. - omega 9-vhg-xlj-fish oil (FISH OIL) 100-160-1,000 mg cap Take [...] for malignant*03/31/2016 (more content not included)... [facility] HENRY OLIVEIRA ([id number]) 1955 F Date Time Provider Department 08/03/22 SHIN ARIAS During your visit today, we recorded the following information about you: Laury Pierre RN 08/03/2022 10:55 AM Signed Pt called in and reports office will need to call insurance phone # [phone] to get their Toano Thyroid added to insurance formulary. Pt reports she is almost out of medication. Prior Authorization Documentation Prior authorization requested for the following medication: Medication: Toano Thyroid Provider: Dr Arias Insurance Company Name: [facility] Medicare Insurance Company Phone number: [phone] Patient ID number: [id number] Pharmacy Name: [facility] Telephone number: [phone] Doretha Judd [employer] 08/05/2022 2:03 PM Addendum THE OFFICE CAN COMPLETE A PA. we have no pharmacy benefits on file. Will have to review via covermymeds.We do not have the ability to add meds to a formulary. Doretha Binta [employer] 08/03/2022 11:39 AM Signed Henry Oliveira Sawyer: [id number] - PA help? Call us at Status Sent to [facility] Toano Thyroid 90MG tablets Form [employer] Electronic Prior Authorization Form (2016 NCPDP) Doretha Binta GORMAN 08/03/2022 2:23 PM Signed Henry Oliveira Sawyer: [id number] - PA help? Call us at Outcome Deniedtoday Request Reference Number: [id number]. ARMOUR THYRO TAB 90MG is denied for not meeting the prior authorization requirement(s). Details of this decision are in the notice attached below or have been faxed to you Breana Saha [employer] 08/05/2022 8:37 AM Signed Patient calling said she needs formulary exception done for the Amour thyroid. Doretha Judd VITA 08/05/2022 2:08 PM Signed Called the number provided. This was not correct. Pharmacy is [phone]. PA already completed and denied. Tier exception is being reviewed. Will rec'd response via fax. The reference number for this is [id number]. This call took over 20 minutes. Doretha Judd VITA 09/07/2022 10:25 AM Signed Called insurance and [...] Date Reviewed: 06/06/2022 Reviewed by: Jossy Gustafson APRN.[employer] - Fully Assessed Reason for Visit: Medication [...] once daily for 30 days. - omega 6-xrn-vtv-fish oil (FISH OIL) 100-160-1,000 mg cap Take [...] Noted Resolved (more content not included)... Normal [facility] Hemoccult Stl Ql IAon 2022 Lower GI hemoglobin IA Ql (Stl) Negative Normal Negative [facility] Comment on above: Order Comment: Speci men Type: STOOL SPECIMENOrdering Facility: [facility] Address: [address] [place] [address] Performed By: #### 2 9771-3 ####[facility] LABCLIA [id number] [place] [id number] [place] Bailey 07-22-2022 SOFIYA Telephone (FAMPWS) JULIUSHENRY FABIAN ([id number]) 1955 F Date Time Provider Department 07/22/22 [...] Date Reviewed: 06/06/2022 Reviewed by: Jossy Gustafson APRN.[facility] - Fully Assessed Reason for Visit: Results [95] Prescriptions as of 07/22/2022 - ARMOUR THYROID 90 mg tablet Take 1 tablet by mouth once daily. - dextroamphetamine-amph etamine (ADDERALL) 10 mg tablet Take 0.5-1 tablets by mouth once daily for 30 days. - omega 4-amw-hpg-fish oil (FISH OIL) 100-160-1,000 mg cap Take [...] exam [Z00.00 (more content not included)... Normal [facility] 25(OH)D3 [facility] 20[facility] 25-hydroxyvitamin D3 [Mass/Vol] 59.2 ng/mL Normal 31.0-80.0 [facility] Comment on above: Order Comment: Speci men Type: BLOOD SPECIMEN [facility] Address: [address] [place] [address] Result Comment: Clas sification of 25 [place] Vitamin D status: Deficiency/Insufficiency: < or = 30 ng/ml. Sufficiency/Optimal Levels: 31-80 ng/mL Toxicity: > 100 ng/mL. Test performed by chemiluminescent immunoassay. Performed By: #### 2 4323-8, 87357-7, 2276-4, 2284-8 #### [facility] CLIA [id number] [address] [place] [address] [place] CBC W Auto Differential pane l (Bld)on 07-20-2022 Basophils (Bld) [#/Vol] 0.08 10*3/uL Normal <0.11 [facility] Comment on above: Order Comment: Speci men Type: BLOOD SPECIMENOrdering Facility: [facility] Address: [address] [place] [address] Performed By: #### 5 7021-8 ####[facility] LABCLIA [id number] [place] [address] [place] Basophils/100 WBC (Bld) 1.3 % Normal [facility] Comment on above: Order Comment: Speci men Type: BLOOD SPECIMENOrdering Facility: [facility] Address: [address] [place] [address] Performed By: #### 5 7021-8 ####[facility] LABCLIA [id number] [address] [place] Differential cell count method Nom (Bld) Auto Normal [facility] Comment on above: Order Comment: Speci men Type: BLOOD SPECIMENOrdering Facility: [facility] Address: [address] [place] [address] Performed By: #### 5 7021-8 ####[facility] LABCLIA [id number] [place] [address] [place] Eosinophils (Bld) [#/Vol] 0.12 10*3/uL Normal <0.46 [facility] Comment on above: Order Comment: Speci men Type: BLOOD SPECIMENOrdering Facility: [facility] Address: [address] Performed By: #### 5 7021-8 ####[facility] LABCLIA [id number] [place] [address] [place] Eosinophils/100 WBC (Bld) 1.9 % Normal [facility] Comment on above: Order Comment: Speci men Type: BLOOD SPECIMENOrdering Facility: [facility] Address: [address] Performed By: #### 5 7021-8 ####[facility] LABIA [id number] [place] [address] [place] Erythrocyte distribution width (RBC) [Ratio] 12.4 % Normal 11.5-15.0 [facility] Comment on above: Order Comment: Speci men Type: BLOOD SPECIMENOrdering Facility: [facility] Address: [address] [place], [place] [address] Performed By: #### 5 7021-8 ####[facility] LABIA [id number] [address] [place] Hematocrit (Bld) [Volume fraction] 43.5 % Normal 36.0-46.0 [facility] Comment on above: Order Comment: Speci men Type: BLOOD SPECIMENOrdering Facility: [facility] Address: [address] Performed By: #### 5 7021-8 ####[facility] LABIA [id number] [place] [address] [place] Hemoglobin (Bld) [Mass/Vol] 14.7 g/dL Normal 11.5-15.5 [facility] Comment on above: Order Comment: Speci men Type: BLOOD SPECIMENOrdering Facility: [facility] Address: [address] [place], [place] [address] Performed By: #### 5 7021-8 ####[facility] LABCLIA [id number] [place] [address] [place] Immature granulocytes (Bld) [#/Vol] 10*3/uL Normal <0.10 [facility] Comment on above: Order Comment: Speci men Type: BLOOD SPECIMENOrdering Facility: [facility] Address: [address] Performed By: #### 5 7021-8 ####[facility] LABCLIA [id number] [address] [place] Immature granulocytes/100 WBC (Bld) 0.2 % Normal [facility] Comment on above: Order Comment: Speci men Type: BLOOD SPECIMENOrdering Facility: [facility] Address: [address] [place], [place] [address] Performed By: #### 5 7021-8 ####[facility] LABCLIA [id number] [place] [address] [place] Lymphocytes (Bld) [#/Vol] 1.98 10*3/uL Normal 1.00-4.00 [facility] Comment on above: Order Comment: Speci men Type: BLOOD SPECIMENOrdering Facility: [facility] Address: [address] [place], [place] [address] Performed By: #### 5 7021-8 ####[facility] LABCLIA [id number] [address] [place] Lymphocytes/100 WBC (Bld) 31.8 % Normal [facility] Comment on above: Order Comment: Speci men Type: BLOOD SPECIMENOrdering Facility: [facility] Address: [address] [place], [place] [address] Performed By: #### 5 7021-8 ####[facility] LABCLIA [id number] [place] [address] [place] MCH (RBC) [Entitic mass] 30.1 pg Normal 26.0-34.0 [facility] Comment on above: Order Comment: Speci men Type: BLOOD SPECIMENOrdering Facility: [facility] Address: [address] [place] [address] Performed By: #### 5 7021-8 ####[facility] LABCLIA [id number] [address] [place] MCHC (RBC) [Mass/Vol] 33.8 g/dL Normal 30.5-36.0 [facility] Comment on above: Order Comment: Speci men Type: BLOOD SPECIMENOrdering Facility: [facility] Address: [address] [place], [place] [address] Performed By: #### 5 7021-8 ####[facility] LABIA [id number] [address] STATES OF [facility] MCV (RBC) [Entitic vol] 89.0 fL Normal 80.0-100.0 [facility] Comment on above: Order Comment: Speci men Type: BLOOD SPECIMENOrdering Facility: [facility] Address: [address] [place], [place] [address] Performed By: #### 5 7021-8 ####[facility] LABIA [id number] [address] [place] Monocytes (Bld) [#/Vol] 0.45 10*3/uL Normal <0.87 [facility] Comment on above: Order Comment: Speci men Type: BLOOD SPECIMENOrdering Facility: [facility] Address: [address] [place], [place] [address] Performed By: #### 5 7021-8 ####[facility] LABCLIA [id number] [address] STATES [facility] Monocytes/100 WBC (Bld) 7.2 % Normal [facility] Comment on above: Order Comment: Speci men Type: BLOOD SPECIMENOrdering Facility: [facility] Address: [address] Performed By: #### 5 7021-8 ####[facility] LABCLIA [id number] [place] [address] [place] Neutrophils (Bld) [#/Vol] 3.59 10*3/uL Normal 1.45-7.50 [facility] Comment on above: Order Comment: Speci men Type: BLOOD SPECIMENOrdering Facility: [facility] Address: [address] Performed By: #### 5 7021-8 ####[facility] LABCLIA [id number] [place] [address] [place] Neutrophils/100 WBC (Bld) 57.6 % Normal [facility] Comment on above: Order Comment: Speci men Type: BLOOD SPECIMENOrdering Facility: [facility] Address: [address] Performed By: #### 5 7021-8 ####[facility] LABCLIA [id number] [place] [address] [place] Nucleated RBC (Bld) [#/Vol] 10*3/uL Normal <0.01 [facility] Comment on above: Order Comment: Speci men Type: BLOOD SPECIMENOrdering Facility: [facility] Address: [address] Performed By: #### 5 7021-8 ####[facility] LABCLIA [id number] [place] [address] [place] Nucleated RBC/100 WBC (Bld) [Ratio] 0.0 /100 WBC Normal [facility] Comment on above: Order Comment: Speci men Type: BLOOD SPECIMENOrdering Facility: [facility] Address: [address] [place], [place] [address] Performed By: #### 5 7021-8 ####[facility] LABCLIA [id number] [place] [address] [place] Platelet mean volume (Bld) [Entitic vol] 10.6 fL Normal 9.0-12.7 [facility] Comment on above: Order Comment: Speci men Type: BLOOD SPECIMENOrdering Facility: [facility] Address: [address] [place], [place] [address] Performed By: #### 5 7021-8 ####[facility] LABCLIA [id number] [place] [address] [place] Platelets (Bld) [#/Vol] 233 10*3/uL Normal 150-400 [facility] Comment on above: Order Comment: Speci men Type: BLOOD SPECIMENOrdering Facility: [facility] Address: [address] [place], [place] [address] Performed By: #### 5 7021-8 ####[facility] LABCLIA [id number] [place] [address] [place] RBC (Bld) [#/Vol] 4.89 10*6/uL Normal 3.90-5.20 [facility] Comment on above: Order Comment: Speci men Type: BLOOD SPECIMENOrdering Facility: [facility] Address: [address] [place], [place] [address] Performed By: #### 5 7021-8 ####[facility] LABCLIA [id number] [place] [address] [place] WBC (Bld) [#/Vol] 6.23 10*3/uL Normal 3.70-11.00 [facility] Comment on above: Order Comment: Speci men Type: BLOOD SPECIMENOrdering Facility: [facility] Address: [address] [place], [place] [address] Performed By: #### 5 7021-8 ####[facility] LABCLIA [id number] [place] [address] [place] Comprehensive metabolic 2000 panelon 07-20-2022 Albumin [Mass/Vol] 4.6 g/dL Normal 3.9-4.9 [facility] Comment on above: Order Comment: Speci men Type: BLOOD SPECIMEN [facility] Address: [address] [place] [address] Performed By: #### 2 4323-8, 26158-0, 6-4, 2283-8 #### [facility] CLIA [id number] [address] [place] [address] [place] ALP [Catalytic activity/Vol] 116 U/L Normal 34-123 [facility] Comment on above: Order Comment: Speci men Type: BLOOD SPECIMEN [facility] Address: [address] [place] [address] Performed By: #### 2 4323-8, 77652-7, 2275-4, 2283-8 #### [facility] CLIA [id number] [address] [place] [address] [place] ALT [Catalytic activity/Vol] 14 U/L Normal 7-38 [facility] Comment on above: Order Comment: Speci men Type: BLOOD SPECIMEN [facility] Address: [address] [place] [address] Performed By: #### 2 4323-8, 93411-3, 6-4, 2283-8 #### [facility] CLIA [id number] [address] [place] [address] [place] Anion gap [Moles/Vol] 9 mmol/L Normal 9-18 [facility] Comment on above: Order Comment: Speci men Type: BLOOD SPECIMEN [facility] Address: [address] [place] [address] Performed By: #### 2 4323-8, 55207-2, 2275-4, 2283-8 #### [facility] CLIA [id number] [address] [place] [address] [place] AST [Catalytic activity/Vol] 17 U/L Normal 13-35 [facility] Comment on above: Order Comment: Speci men Type: BLOOD SPECIMEN [facility] Address: [address] [place] [address] Performed By: #### 2 4323-8, 24191-0, 6-4, 2283-8 #### [facility] CLIA [id number] [address] [place] [address] [place] Bilirubin [Mass/Vol] 0.4 mg/dL Normal 0.2-1.3 [facility] Comment on above: Order Comment: Speci men Type: BLOOD SPECIMEN [facility] Address: [address] [place] [address] Performed By: #### 2 4323-8, 60513-5, 2275-4, 2283-8 #### [facility] CLIA [id number] [address] [place] [address] [place] Calcium [Mass/Vol] 10.0 mg/dL Normal 8.5-10.2 [facility] Comment on above: Order Comment: Speci men Type: BLOOD SPECIMEN [facility] Address: [address] [place] [address] Performed By: #### 2 4323-8, 18608-0, 2275-4, 2283-8 #### [facility] CLIA [id number] [address] [place] [address] [place] Chloride [Moles/Vol] 107 mmol/L High 97-105 [facility] Comment on above: Order Comment: Speci men Type: BLOOD SPECIMEN [facility] Address: [address] [place] [address] Performed By: #### 2 4323-8, 35346-9, 2275-4, 2283-8 #### [facility] CLIA [id number] [address] [place] [address] [place] CO2 [Moles/Vol] 28 mmol/L Normal 22-30 [facility] Comment on above: Order Comment: Alexanderi julianna Type: BLOOD SPECIMEN [facility] Address: [address] [place] [address] Performed By: #### 2 4323-8, 09747-6, 6-4, 2283-8 #### [facility] CLIA [id number] [facility] [address] [place] Creatinine [Mass/Vol] 0.63 mg/dL Normal 0.58-0.96 [facility] Comment on above: Order Comment: Ciara levine Type: BLOOD SPECIMEN [facility] Address: [address] [place] [address] Performed By: #### 2 4323-8, 36638-0, 2275-4, 8 #### [facility] CLIA [id number] [address] [place] [address] OF [facility] ESTIMATED GLOMERULAR FILTRATION RATE 98 mL/min/1.73m??? Normal >=60 [facility] Comment on above: Order Comment: Ciara levine Type: BLOOD SPECIMEN [facility] Address: [address] [place] [address] Result Comment: Letty mated Glomerular Filtration Rate [...] actual GFR. Performed By: #### 2 4323-8, 28901-8, 2275-4, 2283-8 #### [facility] CLIA [id number] [address] [place] [address] [place] Glucose [Mass/Vol] 92 mg/dL Normal 74-99 [facility] Comment on above: Order Comment: Speci men Type: BLOOD SPECIMEN [facility] Address: [place] [id number] Result Comment: The [place] Diabetes Association (ADA) provides guidance for cutoff [...] Standards of Medical Care in Diabetes 2016, [place] [employer] Association. Diabetes Care. 2016.39(Suppl 1). Performed By: #### 2 4323-8, 70501-0, 2275-4, 8 #### [facility] CLIA [id number] [address] [place] [address] [place] Potassium [Moles/Vol] 4.7 mmol/L Normal 3.7-5.1 [facility] Comment on above: Order Comment: Speci men Type: BLOOD SPECIMEN Order[facility] Address: [address] [place], [place] [id number] Performed By: #### 2 4323-8, 83923-9, 2275-4, 8 #### [facility] CLIA [id number] [address] [place], [place] [address] [place] Protein [Mass/Vol] 7.4 g/dL Normal 6.3-8.0 [facility] Comment on above: Order Comment: Speci men Type: BLOOD SPECIMEN Order[facility] Address: [address] [place], [place] [id number] Performed By: #### 2 4323-8, 91898-0, 2275-4, 8 #### [facility] CLIA [id number] [address] [place] [address] [facility] [place] Sodium [Moles/Vol] 144 mmol/L Normal 136-144 [facility] Comment on above: Order Comment: Speci men Type: BLOOD SPECIMEN [facility] Address: [address] [place] [address] Performed By: #### 2 4323-8, 42310-1, 2275-4, 2283-8 #### [facility] CLIA [id number] [address] [place] [address] [place] Urea nitrogen [Mass/Vol] 8 mg/dL Normal 7-21 [facility] Comment on above: Order Comment: Speci men Type: BLOOD SPECIMEN [facility] Address: [address] [place] [address] Performed By: #### 2 4323-8, 58318-0, 2275-4, 8 #### [facility] CLIA [id number] [address] [place] [address] [place] Ferritin SerPl-mCncon 2022 Ferritin [Mass/Vol] 265.0 ng/mL High 14.7-205.1 [facility] Comment on above: Order Comment: Speci men Type: BLOOD SPECIMENOrdering Facility: [facility] Address: [address] [place] [address] Performed By: #### 1 9123-9, 2276-4, 3024-7, 3016-3 ####[facility] LABCLIA [id number] [place] [address] [place] Iron and Iron binding capaci ty panelon 07-20-2022 Iron [Mass/Vol] 99 ug/dL Normal 41-186 [facility] Comment on above: Order Comment: Speci men Type: BLOOD SPECIMEN [facility] Address: [address] [place] [address] Performed By: #### 2 4323-8, 34925-8, 2275-4, 8 #### [facility] CLIA [id number] [address] [place] [address] [place] Iron binding capacity [Mass/Vol] 303 ug/dL Normal 232-386 [facility] Comment on above: Order Comment: Speci men Type: BLOOD SPECIMEN [facility] Address: [address] [place] [address] Performed By: #### 2 4323-8, 64490-3, 6-4, 2283-8 #### [facility] CLIA [id number] [address] [place] [address] [place] Iron/TIBC [Molar ratio] 32.7 % Normal 15.0-57.0 [facility] Comment on above: Order Comment: Speci men Type: BLOOD SPECIMEN [facility] Address: [address] [place] [address] Performed By: #### 2 4323-8, 83493-0, 2275-4, 2283-8 #### [facility] CLIA [id number] [address] [place] [address] [place] Lipid 1996 panelon 3 Cholesterol [Mass/Vol] 213 mg/dL High <200 [facility] Comment on above: Order Comment: Speci men Type: BLOOD SPECIMEN Ordering Facility: [facility] Address: [address] [place], [place] [id number] Result Comment: <200 mg/dL, Desirable 200-239 mg/dL, Borderline high >239 mg/dL, High Performed By: #### 2 4323-8, 65609-7, 6-4, 2283-8 #### [facility] CLIA [id number] [address] [place] [address] [place] Cholesterol in HDL [Mass/Vol] 73 mg/dL Normal >39 [facility] Comment on above: Order Comment: Speci men Type: BLOOD SPECIMEN Ordering Facility: [facility] Address: [address] [place] [address] Result Comment: 40-5 9 mg/dL, Acceptable >59 mg/dL, High: Negative risk factor for coronary heart disease <40 mg/dL, Low: Positive risk factor for coronary heart disease Performed By: #### 2 4323-8, 87386-4, 2275-4, 8 #### [facility] CLIA [id number] [address] [facility] [address] [address] [place] Cholesterol in LDL [Mass/Vol] 129 mg/dL High <100 [facility] Comment on above: Order Comment: Speci men Type: BLOOD SPECIMEN Ordering Facility: [facility] Address: [address] [address] Result Comment: <100 mg/dL, Optimal 100-129 mg/dL, Near optimal/above optimal 130-159 mg/dL, Borderline high 160-189 mg/dL, High >189 mg/dL, Very high Secondary prevention optimal LDL Cholesterol levels are recommended to be < 70 mg/dL Performed By: #### 2 4323-8, 27488-0, 2275-, 2283-12 #### [facility] CLIA [id number] [address] [place] [address] [place] Cholesterol in LDL/Cholesterol in HDL [Mass ratio] 1.77 {ratio} Normal <2.54 [facility] Comment on above: Order Comment: Alexanderi men Type: BLOOD SPECIMEN Ordering Facility: [facility] Address: [address] [address] Result Comment: Refe rence: 1. National Cholesterol Education Program ATP III Guideline At-A-Glance Quick Desk Reference: National Heart, Lung, and Blood [place]. National Institutes of Health. 2001: NIH Publication No. 01-3305. 2. An International Atherosclerosis Society position paper: global recommendations for the management of dyslipidemia: executive summary, Atherosclerosis. 2014: 232(2):410-413. Performed By: #### 2 4323-8, 39869-9, 2275-4, 8 #### [facility] CLIA [id number] [address] [facility] [id number] [address] [place] Cholesterol in VLDL [Mass/Vol] 11 mg/dL Normal <30 [facility] Comment on above: Order Comment: Speci men Type: BLOOD SPECIMEN Ordering Facility: [facility] Address: [address] [place] [address] Performed By: #### 2 4323-8, 49905-7, 6-4, 2283-8 #### [facility] CLIA [id number] [address] [place] [address] [place] Cholesterol non HDL [Mass/Vol] 140 mg/dL High <130 [facility] Comment on above: Order Comment: Speci men Type: BLOOD SPECIMEN Ordering Facility: [facility] Address: [address] [place] [address] Result Comment: <130 mg/dL, Optimal 130-159 mg/dL, Near optimal/above optimal 160-189 mg/dL, Borderline high 190-219 mg/dL, High >219 mg/dL, Very high Secondary prevention optimal non HDL Cholesterol levels are recommended to be <100 mg/dL Performed By: #### 2 4323-8, 83241-0, 6-4, 2283-8 #### [facility] CLIA [id number] [address] [place] [address] [place] Cholesterol.total/C holesterol in HDL [Mass ratio] 2.92 {ratio} Normal <5.10 [facility] Comment on above: Order Comment: Speci men Type: BLOOD SPECIMEN Ordering Facility: [facility] Address: [address] [place], [place] Performed By: #### 2 4323-8, 73800-0, 6-4, 2283-8 #### [facility] CLIA [id number] [address] [place] [address] [place] FASTING TIME 12 hrs Normal [facility] Comment on above: Order Comment: Speci men Type: BLOOD SPECIMEN Ordering Facility: [facility] Address: [address] [place] [address] Performed By: #### 2 4323-8, 91838-1, 2275-4, 8 #### [facility] CLIA [id number] [address] [place] [address] [place] Triglyceride [Mass/Vol] 54 mg/dL Normal <150 [facility] Comment on above: Order Comment: Speci men Type: BLOOD SPECIMEN Ordering Facility: [facility] Address: [address] [place] [address] Result Comment: <150 mg/dL, Normal 150-199 mg/dL, Borderline high 200-499 mg/dL, High >499 mg/dL, Very high Performed By: #### 2 4323-8, 47950-2, 2275-08, 2283-12 #### [facility] CLIA [id number] [address] [place] [address] [place] Magnesium SerPl-mCncon 07-20 Magnesium [Mass/Vol] 2.4 mg/dL High 1.7-2.3 [facility] Comment on above: Order Comment: Speci men Type: BLOOD SPECIMEN Ordering Facility: [facility] Address: [address] [place] [address] Performed By: #### 2 4323-8, 81603-8, 4, 2283-12 #### [facility] CLIA [id number] [address] [place] [address] [place] T3Free SerPl-mCncon 07-21-19 23 Free T3 [Mass/Vol] 7.4 pg/mL High 2.3-4.1 [facility] Comment on above: Order Comment: Speci men Type: BLOOD SPECIMEN Ordering Facility: [facility] Address: [address] [place] [address] Performed By: #### 2 4323-8, 20089-3, 4, 8 #### [facility] CLIA [id number] [address] [id number] [address] [place] T4 Free SerPl-mCncon 023 Free T4 [Mass/Vol] 1.3 ng/dL Normal 0.9-1.7 [facility] Comment on above: Order Comment: Speci men Type: BLOOD SPECIMENOrdering Facility: [facility] Address: [address] [place], [place] [id number] Performed By: #### 1 9123-9, 2276-4, 3024-7, 3016-3 ####[facility] [id number] [address] [place] [id number] [facility] TSH SerPl-aCncon 07-20-2022 TSH Qn 1.280 m[IU]/L Normal 0.270-4.200 [facility] Comment on above: Order Comment: Speci men Type: BLOOD SPECIMENOrdering Facility: [facility] Address: [address] [place] [address] Performed By: #### 1 9123-9, 2276-4, 3024-7, 3016-3 ####[facility] [id number] [address] VITAMIN Con 07-20-2022 VITAMIN C 59 umol/L Normal 23-114 [facility] Comment on above: Order Comment: Speci men Type: BLOOD SPECIMEN Ordering Facility: [facility] Address: [address] [place] [address] Result Comment: INTE RPRETIVE DATA: Vitamin C [...] developed and its performance characteristics determined by [employer]. It has not been cleared or approved by the US Food and Drug Administration. This test was performed in a CLIA certified laboratory and is intended for clinical purposes. Performed By: [facility] [address] [place] [id number] Sexual Assault Response Coordinator: Steve Rios MD, PhD Performed By: #### 2 4323-8, 06154-2, 4, 8 #### [facility] CLIA [id number] [address] [place] [address] [place] Vit B12 SerPl-mCncon 023 Cobalamin (Vitamin B12) [Mass/Vol] 1429 pg/mL High 232-1245 [facility] Comment on above: Order Comment: Speci men Type: BLOOD SPECIMEN Ordering Facility: [facility] Address: [address] [place] [address] Performed By: #### 2 4323-8, 37038-4, 2275-08, 2283-12 #### [facility] CLIA [id number] [address] [place] [address] OF [place] CNOVon 07-19-2022 CNOV Office Visit (FAMPWS ) BARTHENRY Ramon ([id number]) 1955 F Date Time Provider Department 07/19/22 [...] brace for right ankle tendinitis, seen by Business Applications Analyst, no surgery needed at this time. Going to have metal fillings removed from her mouth. Feels that this is affecting her health Mood, feels she is managing well with being off the Prozac medication, doesn't feel she needs anything at this time. Has good foundation with buddhist and buddhist friends as well. Hypothyroidism, taking her armour thyroid medication, cost is expensive, doesn't want to be on synthetic medication. Hair is thinning, + chronic fatigue + shortness of breath, mostly at buddhist when she is trying to sing or [...] Hyperlipidemia Hypothyroidism 2010 HERNAN on [facility] DME [facility] Peripheral vascular disease, unspecified (HCC) varicose veins [...] repair Current Outpatient Medications Medication Sig omega 8-gfe-jad-fish oil (FISH OIL) 100-160-1,000 mg cap Take [...] non-toxic a (more content not included)... [facility] BARTHENRY Ramon ([id number]) 1955 F Date Time Provider Department 07/19/22 SHIN ARIAS During your visit today, we recorded the following information about you: Neri Robles LPN 07/19/2022 3:18 PM Signed Pt calling office to request a 1 month supply of [place] thyroid to be sent to [facility] [place]. Rx pending. Please review and advise. Neri Gustafson APRN.COUNTY ENGINEER 07/21/2022 2:21 PM Signed The following approved medication requests have been transmitted electronically. Requested Prescriptions Signed Prescriptions Disp Refills ARMOUR THYROID 90 mg tablet 30 tablet 0 Sig: Take 1 tablet by mouth once daily. Authorizing Provider: JOSSY GUSTAFSON APRN.COUNTY ENGINEER [employer] 07/21/2022 3:49 PM Signed Sent [employer] message [employer] Allergies As of Date: 07/19/2022 Noted Allergy Reaction BACTRIM (SULFAMETHOXAZOLE) 05/23/2014 4 - Hives MORPHINE SULFATE 03/30/2005 9 - Itching TEA TREE OIL 07/22/2009 2 - Rash Date Reviewed: 06/06/2022 Reviewed by: Jossy Gustafson APRN.COUNTY ENGINEER - Fully Assessed Reason for Visit: Medication Question [3978] Order(s):ARMOUR THYROID 90 mg tabletTake 1 tablet by mouth once daily.Disp: 30 tabletRfl: 0 Prescriptions as of 07/21/2022 - ARMOUR THYROID 90 mg tablet Take 1 tablet by mouth once daily. - dextroamphetamine-amph etamine (ADDERALL) 10 mg tablet Take 0.5-1 tablets by mouth once daily for 30 days. - omega 8-vmr-snz-fish oil (FISH OIL) 100-160-1,000 mg cap Take [...] stress [F43.9] (more content not included)... Normal [facility] Hepatic function 2000 panelo n 05-20-2022 Albumin [Mass/Vol] 3.9 g/dL 3.9 - 4.9 g/dL [facility] ALP [Catalytic activity/Vol] 99 U/L 34 - 123 U/L [facility] ALT [Catalytic activity/Vol] 15 U/L 7 - 38 U/L [facility] AST [Catalytic activity/Vol] 21 U/L 13 - 35 U/L [facility] Bilirubin [Mass/Vol] 0.2 mg/dL 0.2 - 1.3 mg/dL [facility] Bilirubin.conjugate d [Mass/Vol] <0.2 mg/dL [facility] Protein [Mass/Vol] 6.6 g/dL 6.3 - 8.0 g/dL Cl [facility] Influenza virus A and B RNA and SARS-CoV-2 (COVID-19) N gene panel TAYLER+probe (Resp)on 05-20-2022 FLUAV RNA TAYLER+probe Ql (Unsp spec) Negative Negative for Influenza A by RT-PCR [facility] FLUBV RNA TAYLER+probe Ql (Unsp spec) Negative Negative for Influenza B by RT-PCR [facility] SARS-CoV-2 (COVID-19) RNA TAYLER+probe Ql (Resp) SARS-CoV-2 (Agent of COVID-19) Not Detected by RT-PCR or equivalent method. Not Detected [facility] CBC W Auto Differential pane l (Bld)on 05-19-2022 Basophils (Bld) [#/Vol] 0.03 10*3/uL <0.11 k/uL [facility] Basophils/100 WBC (Bld) 0.5 % [facility] Differential cell count method Nom (Bld) Auto [facility] Eosinophils (Bld) [#/Vol] 0.08 10*3/uL <0.46 k/uL [facility] Eosinophils/100 WBC (Bld) 1.4 % [facility] Erythrocyte distribution width (RBC) [Ratio] 11.5 % 11.5 - 15.0 % [facility] Hematocrit (Bld) [Volume fraction] 40.3 % 36.0 - 46.0 % [facility] Hemoglobin (Bld) [Mass/Vol] 13.4 g/dL 11.5 - 15.5 g/dL [facility] Immature granulocytes (Bld) [#/Vol] <0.10 k/uL [facility] Immature granulocytes/100 WBC (Bld) 0.3 % [facility] Lymphocytes (Bld) [#/Vol] 1.92 10*3/uL 1.00 - 4.00 k/uL [facility] Lymphocytes/100 WBC (Bld) 33.3 % [facility] MCH (RBC) [Entitic mass] 29.8 pg 26.0 - 34.0 pg [facility] MCHC (RBC) [Mass/Vol] 33.3 g/dL 30.5 - 36.0 g/dL [facility] MCV (RBC) [Entitic vol] 89.6 fL 80.0 - 100.0 fL [facility] Monocytes (Bld) [#/Vol] 0.30 10*3/uL <0.87 k/uL [facility] Monocytes/100 WBC (Bld) 5.2 % [facility] Neutrophils (Bld) [#/Vol] 3.41 10*3/uL 1.45 - 7.50 k/uL [facility] Neutrophils/100 WBC (Bld) 59.3 % [facility] Nucleated RBC (Bld) [#/Vol] <0.01 k/uL [facility] Nucleated RBC/100 WBC (Bld) [Ratio] 0.0 /100 WBC [facility] Platelet mean volume (Bld) [Entitic vol] 10.4 fL 9.0 - 12.7 fL [facility] Platelets (Bld) [#/Vol] 206 10*3/uL 150 - 400 k/uL [facility] RBC (Bld) [#/Vol] 4.50 10*6/uL 3.90 - 5.2 0 m/uL [facility] WBC (Bld) [#/Vol] 5.76 10*3/uL 3.70 - 11. 00 k/uL [facility] XR FOOT LEFT 3 VIEWSon 07-29 [...] surgery at the second PIP joint Normal [facility] XR FOOT RIGHT 3 VIEWSon 07-13 [...] joint osteoarthritis No acute osseous abnormality Normal [facility] XR Foot - left 3 Viewson [...] prior surgery at the second PIP joint [facility] Radiology Study observation (narrative) [facility] XR Foot - right 3 [...] calcaneal inclination angle is approximately 17 degrees. Andria Aranda D O - 07/29/2021 EXAM: [...] osteoarthritis No acute osseous abnormality [facility] Radiology Study observation (narrative) [facility] XR Foot - right 3 ViewsOrder ed By: Andria Bermudez on 07-29-2021 [facility] Work Phone: Vital Signs Date Time Vital Sign Value Performing Clinician Faci lity 01-25-2023 15:35-0400 Body temperature 98.8 [degF] Chris Rendon MD Work Phone: [facility] 01-25-2023 15:35-0400 Body weight 56.25 kg Chris Rendon MD Work Phone: [facility] 01-25-2023 15:35-0400 Diastolic blood pressure 80 mm[Hg] Chris Rendon MD Work Phone: [facility] 01-25-2023 15:35-0400 Heart rate 58 /min Chirs Rendon MD Work Phone: [facility] 01-25-2023 15:35-0400 Respiratory rate 16 /min Chris Rendon MD Work Phone: [facility] 01-25-2023 15:35-0400 SaO2% (BldA) [Mass fraction] 98 % Chris Rendon MD Work Phone: [facility] 01-25-2023 15:35-0400 Systolic blood pressure 120 mm[Hg] Chris Rendon MD Work Phone: [facility] 12-26-2022 07:59-0400 Body weight 55.79 kg NA Leyva PA-C Work Phone: [facility] 12-26-2022 07:59-0400 Diastolic blood pressure 60 mm[Hg] NA Leyva PA-C Work Phone: [facility] 12-26-2022 07:59-0400 Heart rate 67 /min NA Leyva PA-C Work Phone: [facility] 12-26-2022 07:59-0400 Respiratory rate 16 /min NA Leyva PA-C Work Phone: [facility] 12-26-2022 07:59-0400 SaO2% (BldA) [Mass fraction] 97 % NA Leyva PA-C Work Phone: [facility] 12-26-2022 07:59-0400 Systolic blood pressure 110 mm[Hg] NA Leyva PA-C Work Phone: [facility] 11-25-2022 13:59-0400 Body weight 57.61 kg NA Leyva PA-C Work Phone: [facility] 11-25-2022 13:59-0400 Diastolic blood pressure 68 mm[Hg] NA Leyva PA-C Work Phone: [facility] 11-25-2022 13:59-0400 Heart rate 87 /min NA Leyva PA-C Work Phone: [facility] 11-25-2022 13:59-0400 Respiratory rate 16 /min NA Leyva PA-C Work Phone: [facility] 11-25-2022 13:59-0400 SaO2% (BldA) [Mass fraction] 100 % NA Leyva PA-C Work Phone: [facility] 11-25-2022 13:59-0400 Systolic blood pressure 116 mm[Hg] NA Leyva PA-C Work Phone: [facility] 10-19-2022 08:29-0400 Body temperature 98.2 [degF] Shin Arias DO Work Phone: [facility] 10-19-2022 08:29-0400 Body weight 58.51 kg Shin Arias DO Work Phone: [facility] 10-19-2022 08:29-0400 Diastolic blood pressure 74 mm[Hg] Shin Arias DO Work Phone: [facility] 10-19-2022 08:29-0400 Heart rate 64 /min Shin Arias DO Work Phone: [facility] 10-19-2022 08:29-0400 Respiratory rate 16 /min Shin Arias DO Work Phone: [facility] 10-19-2022 08:29-0400 Systolic blood pressure 130 mm[Hg] Shin Arias DO Work Phone: [facility] 08-10-2022 11:05-0400 Body temperature 98.4 [degF] Shin Arias DO Work Phone: [facility] 08-10-2022 11:05-0400 Body weight 58.06 kg Shin Arias DO Work Phone: [facility] 08-10-2022 11:05-0400 Diastolic blood pressure 80 mm[Hg] Shin Arias DO Work Phone: [facility] 08-10-2022 11:05-0400 Heart rate 88 /min Shin Arias DO Work Phone: [facility] 08-10-2022 11:05-0400 Respiratory rate 16 /min Shin Arias DO Work Phone: [facility] 08-10-2022 11:05-0400 Systolic blood pressure 120 mm[Hg] Shin Arias DO Work Phone: [facility] 07-20-2022 09:10-0500 Body height 160.5 cm Pulm Wstr Work Phone: [facility] 07-20-2022 09:10-0500 Body weight 58.06 kg Pulm Wstr Work Phone: [facility] 07-20-2022 09:10-0500 Heart rate 70 /min Pulm Wstr Work Phone: [facility] 07-20-2022 09:10-0500 Respiratory rate 14 /min Pulm Wstr Work Phone: [facility] 07-20-2022 09:10-0500 SaO2% (BldA) [Mass fraction] 99 % Pulm Wstr Work Phone: [facility] 07-19-2022 08:54-0500 Body temperature 98.49 [degF] Shin Arias DO Work Phone: [facility] 07-19-2022 08:54-0500 Body weight 59.88 kg Shin Arias DO Work Phone: [facility] 07-19-2022 08:54-0500 Diastolic blood pressure 82 mm[Hg] Shin Arias DO Work Phone: [facility] 07-19-2022 08:54-0500 Heart rate 72 /min Shin Arias DO Work Phone: [facility] 07-19-2022 08:54-0500 Respiratory rate 16 /min Shin Arias DO Work Phone: [facility] 07-19-2022 08:54-0500 Systolic blood pressure 138 mm[Hg] Shin Arias DO Work Phone: [facility] 06-06-2022 10:10-0500 Body weight 59.33 kg Jossy Gustafson SECONDARY SET UP MAN.COUNTY ENGINEER Work Phone: [facility] 06-06-2022 10:10-0500 Diastolic blood pressure 60 mm[Hg] Jossy Gustafson SECONDARY SET UP MAN.COUNTY ENGINEER Work Phone: [facility] 06-06-2022 10:10-0500 Heart rate 62 /min Jossy Gustafson SECONDARY SET UP MAN.COUNTY ENGINEER Work Phone: [facility] 06-06-2022 10:10-0500 Respiratory rate 14 /min Jossy Gustafson SECONDARY SET UP MAN.COUNTY ENGINEER Work Phone: [facility] 06-06-2022 10:10-0500 Systolic blood pressure 120 mm[Hg] Jossy Gustafson SECONDARY SET UP MAN.COUNTY ENGINEER Work Phone: [facility] 05-19-2022 13:35-0500 Body temperature 98.91 [degF] NA Leyva PA-C Work Phone: [facility] 05-19-2022 13:35-0500 Body weight 59.42 kg NA Leyva PA-C Work Phone: [facility] 05-19-2022 13:35-0500 Diastolic blood pressure 70 mm[Hg] NA Leyva PA-C Work Phone: [facility] 05-19-2022 13:35-0500 Heart rate 70 /min NA Leyva PA-C Work Phone: [facility] 05-19-2022 13:35-0500 Respiratory rate 14 /min NA Leyva PA-C Work Phone: [facility] 05-19-2022 13:35-0500 SaO2% (BldA) [Mass fraction] 99 % NA Leyva PA-C Work Phone: [facility] 05-19-2022 13:35-0500 Systolic blood pressure 128 mm[Hg] NA Leyva PA-C Work Phone: [facility] 05-10-2022 16:40-0500 Body weight 60.78 kg NA Lyeva PA-C Work Phone: [facility] 05-10-2022 16:40-0500 Diastolic blood pressure 58 mm[Hg] NA Leyva PA-C Work Phone: [facility] 05-10-2022 16:40-0500 Heart rate 98 /min NA Leyva PA-C Work Phone: [facility] 05-10-2022 16:40-0500 Respiratory rate 16 /min NA Leyva PA-C Work Phone: [facility] 05-10-2022 16:40-0500 SaO2% (BldA) [Mass fraction] 97 % NA Leyva PA-C Work Phone: [facility] 05-10-2022 16:40-0500 Systolic blood pressure 118 mm[Hg] NA Leyva PA-C Work Phone: [facility] 04-19-2022 09:47-0500 Body temperature 97.81 [degF] Shin Arias DO Work Phone: [facility] 04-19-2022 09:47-0500 Body weight 61.24 kg Shin Arias DO Work Phone: [facility] 04-19-2022 09:47-0500 Diastolic blood pressure 80 mm[Hg] Shin Arias DO Work Phone: [facility] 04-19-2022 09:47-0500 Heart rate 64 /min Shin Arias DO Work Phone: [facility] 04-19-2022 09:47-0500 Respiratory rate 16 /min Shin Arias DO Work Phone: [facility] 04-19-2022 09:47-0500 Systolic blood pressure 138 mm[Hg] Shin Arias DO Work Phone: [facility] 01-21-2022 12:03-0400 Body height 158.8 cm Shin Arias DO Work Phone: [facility] 01-21-2022 12:03-0400 Body temperature 98.2 [degF] Shin Arias DO Work Phone: [facility] 01-21-2022 12:03-0400 Body weight 61.24 kg Shin Arias DO Work Phone: [facility] 01-21-2022 12:03-0400 Diastolic blood pressure 70 mm[Hg] Shin Arias DO Work Phone: [facility] 01-21-2022 12:03-0400 Heart rate 76 /min Shin Arias DO Work Phone: [facility] 01-21-2022 12:03-0400 Respiratory rate 16 /min Shin Arias DO Work Phone: [facility] 01-21-2022 12:03-0400 Systolic blood pressure 120 mm[Hg] Shin Arias DO Work Phone: [facility] 10-22-2021 16:03-0400 Body temperature 98.91 [degF] Shin Arias DO Work Phone: [facility] 10-22-2021 16:03-0400 Body weight 60.78 kg Shin Arias DO Work Phone: [facility] 10-22-2021 16:03-0400 Diastolic blood pressure 60 mm[Hg] Shin Arias DO Work Phone: [facility] 10-22-2021 16:03-0400 Heart rate 64 /min Shin Arias DO Work Phone: [facility] 10-22-2021 16:03-0400 Respiratory rate 16 /min Shin Arias DO Work Phone: [facility] 10-22-2021 16:03-0400 Systolic blood pressure 120 mm[Hg] Shin Arias DO Work Phone: [facility] Encounters Encounter Date Encounter Type Care Provider Facility Start: 07-15-2023 Telephone encounter Shin Linda Huber arrison DO Work Phone: [facility] [place] Start: 07-06-2023 Telephone encounter Shin Mckeon G arrison DO Work Phone: [facility] [place] Start: 06-23-2023 Refill Shin Preston son DO Work Phone: [facility] Comment on above: Refill Request Start: 06-20-2023 End: 06-20-2023 ambulatory Shin Arias [facility] Start: 05-17-2023 ambulatory Shin Preston son DO Work Phone: [facility] [place] Start: 05-04-2023 [facility] Start: 05-03-2023 End: 05-04-2023 ambulatory SHIN Linda ARIAS Facility:[facility] Start: 04-11-2023 Refill Shin ortiz DO Work Phone: [facility] [place] Comment on above: Refill Request Start: 02-16-2023 Refill Shin ortiz DO Work Phone: [facility] [place] Comment on above: Refill Request Start: 01-26-2023 Telephone encounter Lida Cunninghamshahnaz Garcia APRN.COUNTY ENGINEER Work Phone: [facility] Comment on above: Results Start: 01-25-2023 End: 01-25-2023 ambulatory SHIN Linda MARTINEZARIAS Facility:[facility] Start: 01-25-2023 End: 01-25-2023 Patient encounter procedure Chris Rendon MD Work Phone: [facility] Comment on above: Sore throat (Primary Dx); Influenza-like illness Start: 12-26-2022 End: 12-27-2022 ambulatory CARL AVELARON Facility:[facility] Start: 12-26-2022 End: 12-26-2022 Patient encounter procedure Alivia Leyva PA-C Work Phone: [facility] [place] Comment on above: Situational insomnia ; Anxiety with depression Start: 12-24-2022 Refill Shin ortiz DO Work Phone: [facility] [place] Comment on above: Refill Request Start: 11-25-2022 End: 11-25-2022 ambulatory CARL LEYVA Facility:[facility] Start: 11-25-2022 End: 11-25-2022 Patient encounter procedure Alivia Leyva PA-C Work Phone: [facility] [place] Comment on above: Adjustment insomnia (Primary Dx); Anxiety with depression; Hx of ischemic vertebrobasilar artery cerebellar stroke Start: 10-19-2022 End: 10-19-2022 ambulatory SHIN Linda ARIAS Facility:[facility] Start: 10-19-2022 End: 10-19-2022 Patient encounter procedure Shin Arias DO Work Phone: [facility] [place] Comment on above: Elevated ferritin (P rimary Dx); Rash and nonspecific skin eruption; Elevated alkaline phosphatase level; Dermatitis contact; Hypothyroidism, unspecified type; Dyslipidemia; Mood disorder (HCC); Fatigue, unspecified type; Hyperglycemia Start: 10-14-2022 End: 10-15-2022 ambulatory SHIN NICOLASON Facility:[facility] Start: 10-05-2022 End: 10-06-2022 ambulatory SHIN ARIAS Facility:[facility] Start: 10-05-2022 End: 10-05-2022 ambulatory SHIN ARIAS Facility:[facility] Start: 09-30-2022 Refill Shin Preston son DO Work Phone: [facility] [place] Comment on above: Refill Request Start: 08-10-2022 End: 08-10-2022 ambulatory SHIN ARIAS Facility:[facility] Start: 08-10-2022 End: 08-10-2022 Patient encounter procedure Shin Arias DO Work Phone: [facility] [place] Comment on above: Dermatitis contact ( Primary Dx); Hypothyroidism, unspecified type Start: 08-09-2022 Telephone encounter Shin Huber arrison DO Work Phone: [facility] [place] Comment on above: Appointment Start: 08-03-2022 Telephone encounter Shin Mckeon Cecile arrison DO Work Phone: [facility] [place] Comment on above: Results Medication Problem Start: 07-29-2022 End: 07-30-2022 ambulatory SHIN ARIAS Facility:[facility] Start: 07-22-2022 Telephone encounter Shin Mckeon Cecile arrison DO Work Phone: [facility] [place] Comment on above: Results Start: 07-20-2022 End: 07-21-2022 ambulatory [facility] Work Phone: [facility] Comment on above: Spirometry Start: 07-20-2022 End: 07-20-2022 Patient encounter procedure [facility] Work Phone: [place] [facility] Start: 07-19-2022 Telephone encounter Shin Huber arrison DO Work Phone: [facility] Comment on above: Medication Question Start: 07-19-2022 End: 07-19-2022 ambulatory SHIN ARIAS Facility:[facility] Start: 07-19-2022 End: 07-19-2022 Patient encounter procedure Shin Arias DO Work Phone: [facility] [place] Comment on above: Dyslipidemia (Primar y Dx); Hair thinning; Fatigue, unspecified type; Tendinitis of right ankle; SOB (shortness of breath); Hypothyroidism, unspecified type; Screening for colon cancer; Concentration deficit; Anxiety with depression Start: 06-21-2022 Refill Shin ortiz DO Work Phone: [facility] Comment on above: Refill Request Start: 06-17-2022 Refill Shin ortiz DO Work Phone: [facility] Comment on above: Refill Request Start: 06-07-2022 Telephone encounter Jossy ortiz SECONDARY SET UP MAN.COUNTY ENGINEER Work Phone: [facility] Comment on above: Results Start: 06-06-2022 End: 06-06-2022 Patient encounter procedure Jossy Gustafson SECONDARY SET UP MAN.COUNTY ENGINEER Work Phone: [facility] Comment on above: Right ankle swelling (Primary Dx); Encounter for screening for osteoporosis; Encounter for screening mammogram for malignant neoplasm of breast Start: 05-19-2022 End: 05-19-2022 Patient encounter procedure Alivia Leyva PA-C Work Phone: [facility] Comment on above: Flu-like symptoms (P rimary Dx); Elevated alkaline phosphatase level Start: 05-17-2022 Refill Shin ortiz DO Work Phone: [facility] Comment on above: Refill Request Start: 05-11-2022 Telephone encounter Shin steiner DO Work Phone: [facility] Comment on above: requesting orders fo r stress test Start: 05-10-2022 End: 05-10-2022 Refill Shin Arias DO Work Phone: [facility] Comment on above: Refill Request Vasovagal symptom (P rimary Dx); Elevated alkaline phosphatase level; Hypothyroidism, unspecified type; Hyperglycemia; Mood disorder (HCC); Anxiety with depression; Hx of ischemic vertebrobasilar artery cerebellar stroke; Occlusion and stenosis of right vertebral artery; Stenosis of left vertebral artery Start: 05-03-2022 Telephone encounter Shin Linda steiner DO Work Phone: [facility] [place] Comment on above: Results; Appointment Start: 04-19-2022 End: 04-19-2022 Patient encounter procedure Shin Arias DO Work Phone: [facility] [place] Comment on above: Vitamin B12 deficien cy (Primary Dx); Vitamin D deficiency; Dyslipidemia; Hypothyroidism, unspecified type; Elevated alkaline phosphatase level; Chronic right shoulder pain; Chronic pain of right ankle Start: 03-15-2022 Refill Shni ortiz DO Work Phone: [facility] [place] Comment on above: Refill Request Start: 01-21-2022 End: 01-21-2022 Patient encounter procedure Shin Arias DO Work Phone: [facility] [place] Comment on above: Age-related cataract of both eyes, unspecified age-related cataract type (Primary Dx); Double vision; Vitamin B12 deficiency; Vitamin D deficiency; Hypothyroidism, unspecified type; Dyslipidemia; Hyperglycemia; Anxiety with depression Start: 01-19-2022 Refill Shin ortiz DO Work Phone: [facility] [place] Comment on above: Refill Request Start: 12-31-2021 Refill Jossy monae APRN.COUNTY ENGINEER Work Phone: [facility] [place] Comment on above: Refill Request Start: 11-25-2021 Refill Shin ortiz DO Work Phone: [facility] Comment on above: Refill Request Start: 11-10-2021 ambulatory Shin ortiz DO Work Phone: [facility] [place] Start: 10-22-2021 End: 10-22-2021 Patient encounter procedure Shin Arias DO Work Phone: [facility] Comment on above: Anxiety with depress ion (Primary Dx); Mood disorder (HCC); Concentration deficit; Hypothyroidism, unspecified type; Vitamin B12 deficiency; Vitamin D deficiency; Fatigue, unspecified type; Dyslipidemia Start: 10-08-2021 Refill Shin Preston son DO Work Phone: [facility] Comment on above: Refill Request Start: 09-06-2021 Refill Shin ortiz DO Work Phone: [facility] [place] Comment on above: Refill Request Start: 08-09-2021 Refill Jossy Tri monae SECONDARY SET UP MAN.COUNTY ENGINEER Work Phone: [facility] [place] Start: 07-29-2021 ambulatory SAID A ATWAY Facility:[facility] Start: 07-29-2021 End: 07-29-2021 Office outpatient new 30 minutes Said A Atway DPM Work Phone: [facility] Comment on above: Bilateral foot pain (Primary Dx) Start: 07-22-2021 ambulatory SHIN Linda ARIAS [facility]il it[facility] Start: 06-28-2021 Telephone encounter Shin steiner DO Work Phone: [facility] [place] Comment on above: Medication Problem Start: 07-25-2018 Patient encounter status Aleah Chahal SECONDARY SET UP MAN.COUNTY ENGINEER Work Phone: [facility] Work Phone: Start: 08-17-2017 Ambulatory SHIN SCHWARTZ Facil ity:[facility] Procedures Date Procedure Procedure Detail Performing Clinician Start: 01-25-2023 COVID & INFLUENZA A/ B NAAT, ROUTINE Chris Rendon MD Work Phone: Start: 01-25-2023 STREP A MOLECULAR (POC) Latanya Seaman PAKristenC Work Phone: Start: 10-14-2022 Lipid 1996 panel - S zen or Plasma Chris Rendon MD Work Phone: Start: 07-20-2022 Brncdilat rspse spmt ry pre&post-brncdilat admn Shin Martinezrison DO Work Phone: Start: 05-19-2022 COVID WITH FLUA+B, ROUTINE M Thien Leyva PA-C Work Phone: Start: 11-20-2018 Mammography Jossy murray APRN.COUNTY ENGINEER Work Phone: Start: 10-01-2018 Lipid 1996 panel - S zen or Plasma Said Atway DPM Work Phone: Plan of Treatment Date Care Activity Detail Author Start: 10-22-2029 Urine microalbumin profile DTa P,Tdap,Td Vaccine (3 - Td or Tdap) [facility] Start: 10-15-2027 Lipid 1996 panel - S zen or Plasma Lipid Screening [facility] Start: 10-15-2027 Lipid panel Lipid Screening [facility] Start: 10-15-2027 LIPID SCREEN LIPID SCREEN [facility] Start: 07-21-2027 LIPID SCREEN LIPID SCREEN [facility] Start: 04-19-2027 LIPID SCREEN LIPID SCREEN [facility] Start: 01-28-2027 LIPID SCREEN LIPID SCREEN [facility] Start: 10-26-2026 LIPID SCREEN LIPID SCREEN [facility] Start: 06-30-2026 LIPID SCREEN LIPID SCREEN [facility] Start: 10-14-2025 DIABETES SCREEN DIABETES SCREEN [facility] Start: 10-14-2025 Diabetes Screening Diabetes Screenin g [facility] Start: 07-20-2025 DIABETES SCREEN DIABETES SCREEN [facility] Start: 04-19-2025 DIABETES SCREEN DIABETES SCREEN [facility] Start: 01-28-2025 DIABETES SCREEN DIABETES SCREEN [facility] Start: 10-26-2024 DIABETES SCREEN DIABETES SCREEN [facility] Start: 07-13-2024 Annual PCP Team Documentation Manager paulie Disease Visit Annual PCP Team Chronic Disease Visit [facility] Start: 06-30-2024 DIABETES SCREEN DIABETES SCREEN [facility] Start: 05-03-2024 Annual PCP Team Documentation Manager paulie Disease Visit Annual PCP Team Chronic Disease Visit [facility] Start: 05-03-2024 Covid-19 Vaccine (#1) Covid-19 Vacci ne (#1) [facility] Comment on above: Postponed from 03/12 (Declined at this time) Start: 05-03-2024 Covid-19 Vaccine ( season) Covid-19 Vaccine () [facility] Comment on above: Postponed from 01/13 (Declined at this time) Start: 12-27-2023 ANNUAL PCP TEAM RAT CULTURIST PAULIE DISEASE VISIT ANNUAL PCP TEAM CHRONIC DISEASE VISIT [facility] Start: 11-26-2023 ANNUAL PCP TEAM RAT CULTURIST PAULIE DISEASE VISIT ANNUAL PCP TEAM CHRONIC DISEASE VISIT [facility] Start: 11-12-2023 Influenza vaccination Influenza Vacc ine (#1) [facility] Comment on above: Postponed from 01/13 (Declined at this time) Start: 10-20-2023 ANNUAL PCP TEAM RAT CULTURIST PAULIE DISEASE VISIT ANNUAL PCP TEAM CHRONIC DISEASE VISIT [facility] Start: 10-02-2023 Fasting lipid profile LIPID SCREENIN [facility] Start: 08-11-2023 ANNUAL PCP TEAM RAT CULTURIST PAULIE DISEASE VISIT ANNUAL PCP TEAM CHRONIC DISEASE VISIT [facility] Start: 07-29-2023 COLORECTAL CANCER SCREENING COLORECTAL CANCER SCREENING [facility] Start: 07-29-2023 FECAL OCCULT BLOOD FECAL OCCULT BLOO D [facility] Start: 07-29-2023 Screening for malign ant neoplasm of colon [facility] Start: 07-20-2023 ANNUAL PCP TEAM RAT CULTURIST PAULIE DISEASE VISIT ANNUAL PCP TEAM CHRONIC DISEASE VISIT [facility] Start: 06-06-2023 ANNUAL PCP TEAM RAT CULTURIST PAULIE DISEASE VISIT ANNUAL PCP TEAM CHRONIC DISEASE VISIT [facility] Start: 06-06-2023 Pneumococcal Vaccine : 65+ (1 - PCV) Pneumococcal Vaccine: 65+ (1 - PCV) [facility] Comment on above: Postponed from 09/10 (Declined at this time) Start: 06-06-2023 Pneumococcal Vaccine : 65+ (1 of 1 - PCV) Pneumococcal Vaccine: 65+ (1 of 1 - PCV) [facility] Comment on above: Postponed from 09/10 (Declined at this time) Start: 06-06-2023 PNEUMOCOCCAL: 65+ (1 - PCV) PNEUMOCOCCAL: 65+ (1 - PCV) [facility] Comment on above: Postponed from 09/10 (Declined at this time) Start: 06-06-2023 Urine microalbumin profile [facility] Comment on above: Postponed from 08/03 (Declined at this time) Start: 05-19-2023 ANNUAL PCP TEAM RAT CULTURIST PAULIE DISEASE VISIT ANNUAL PCP TEAM CHRONIC DISEASE VISIT [facility] Start: 05-10-2023 ANNUAL PCP TEAM RAT CULTURIST PAULIE DISEASE VISIT ANNUAL PCP TEAM CHRONIC DISEASE VISIT [facility] Start: 04-19-2023 ANNUAL PCP TEAM RAT CULTURIST PAULIE DISEASE VISIT ANNUAL PCP TEAM CHRONIC DISEASE VISIT [facility] Start: 01-21-2023 ANNUAL PCP TEAM RAT CULTURIST PAULIE DISEASE VISIT ANNUAL PCP TEAM CHRONIC DISEASE VISIT [facility] Start: 01-21-2023 COVID-19 VACCINE (#1) COVID-19 VACCI NE (#1) [facility] Comment on above: Postponed from 03/12 (Declined at this time) Start: 01-13-2023 Influenza vaccination [facility] Start: 11-11-2022 Influenza vaccination INFLUENZA (#1) [facility] Comment on above: Postponed from 01/13 (Declined at this time) Start: 10-22-2022 ANNUAL PCP TEAM RAT CULTURIST PAULIE DISEASE VISIT ANNUAL PCP TEAM CHRONIC DISEASE VISIT [facility] Start: 07-19-2022 End: 09-18-2022 25-hydroxyvitamin D3 [Mass/volume] in Serum or Plasma VITAMIN D 25 HYDROXY Lab Routine Hair thinning Fatigue, unspecified type Expected: 07/19/2022, Expires: 09/18/2022 [facility] Work Phone: Comment on above: Expected: 07/19/2022 , Expires: 09/18/2022 Start: 07-19-2022 End: 09-18-2022 Ascorbate [Mass/volume] in Serum or Plasma VITAMIN C Lab Routine Hair thinning Fatigue, unspecified type Expected: 07/19/2022, Expires: 09/18/2022 [facility] Work Phone: Comment on above: Expected: 07/19/2022 , Expires: 09/18/2022 Start: 07-19-2022 End: 09-18-2022 CBC W Auto Differential panel - Blood CBC + DIFF Lab Routine SOB (shortness of breath) Expected: 07/19/2022, Expires: 09/18/2022 [facility] Work Phone: Comment on above: Expected: 07/19/2022 , Expires: 09/18/2022 Start: 07-19-2022 End: 09-18-2022 Cobalamin (Vitamin B12) [Mass/volume] in Serum or Plasma VITAMIN B12 BLOOD Lab Routine Hair thinning Fatigue, unspecified type Expected: 07/19/2022, Expires: 09/18/2022 [facility] Work Phone: Comment on above: Expected: 07/19/2022 , Expires: 09/18/2022 Start: 07-19-2022 End: 09-18-2022 Comprehensive metabolic 2000 panel - Serum or Plasma COMP METABOLIC PANEL Lab Routine SOB (shortness of breath) Expected: 07/19/2022, Expires: 09/18/2022 [facility] Work Phone: Comment on above: Expected: 07/19/2022 , Expires: 09/18/2022 Start: 07-19-2022 End: 09-18-2022 Ferritin [Mass/volume] in Serum or Plasma FERRITIN BLD Lab Routine SOB (shortness of breath) Expected: 07/19/2022, Expires: 09/18/2022 [facility] Work Phone: Comment on above: Expected: 07/19/2022 , Expires: 09/18/2022 Start: 07-19-2022 End: 09-18-2022 Iron and Iron binding capacity panel - Serum or Plasma IRON + TIBC Lab Routine SOB (shortness of breath) Expected: 07/19/2022, Expires: 09/18/2022 [facility] Work Phone: Comment on above: Expected: 07/19/2022 , Expires: 09/18/2022 Start: 07-19-2022 End: 09-18-2022 Lipid 1996 panel - Serum or Plasma LIPID PANEL BASIC Lab Routine Dyslipidemia Expected: 07/19/2022, Expires: 09/18/2022 [facility] Work Phone: Comment on above: Expected: 07/19/2022 , Expires: 09/18/2022 Start: 07-19-2022 End: 09-18-2022 Magnesium [Mass/volume] in Serum or Plasma MAGNESIUM BLD Lab Routine Hair thinning Fatigue, unspecified type Expected: 07/19/2022, Expires: 09/18/2022 [facility] Work Phone: Comment on above: Expected: 07/19/2022 , Expires: 09/18/2022 Start: 07-19-2022 End: 09-18-2022 Thyrotropin [Units/volume] in Serum or Plasma TSH BLD Lab Routine Hypothyroidism, unspecified type Expected: 07/19/2022, Expires: 09/18/2022 [facility] Work Phone: Comment on above: Expected: 07/19/2022 , Expires: 09/18/2022 Start: 07-19-2022 End: 09-18-2022 Thyroxine (T4) free [Mass/volume] in Serum or Plasma T4 FREE/FREE THYROX Lab Routine Hypothyroidism, unspecified type Expected: 07/19/2022, Expires: 09/18/2022 [facility] Work Phone: Comment on above: Expected: 07/19/2022 , Expires: 09/18/2022 Start: 07-19-2022 End: 09-18-2022 Triiodothyronine (T3) Free [Mass/volume] in Serum or Plasma T3 FREE D Lab Routine Hypothyroidism, unspecified type Expected: 07/19/2022, Expires: 09/18/2022 [facility] Work Phone: Comment on above: Expected: 07/19/2022 , Expires: 09/18/2022 Start: 06-23-2022 ANNUAL PCP TEAM RAT CULTURIST PAULIE DISEASE VISIT ANNUAL PCP TEAM CHRONIC DISEASE VISIT [facility] Start: 05-15-2022 ADVANCE DIRECTIVE DISCUSSION ADVANCE DIRECTIVE DISCUSSION [facility] Start: 04-19-2022 End: 06-19-2022 ALK PHOS ISOENZYM BL [facility] Work Phone: Comment on above: Expected: 04/19/2022 , Expires: 06/19/2022 Start: 04-19-2022 End: 06-19-2022 Comprehensive metabolic 2000 panel - Serum or Plasma [facility] Work Phone: Comment on above: Expected: 04/19/2022 , Expires: 06/19/2022 Start: 04-19-2022 End: 06-19-2022 Lipid 1996 panel - Serum or Plasma [facility] Work Phone: Comment on above: Expected: 04/19/2022 , Expires: 06/19/2022 Start: 04-19-2022 End: 06-19-2022 Thyrotropin [Units/volume] in Serum or Plasma [facility] Work Phone: Comment on above: Expected: 04/19/2022 , Expires: 06/19/2022 Start: 04-19-2022 End: 06-19-2022 Thyroxine (T4) free [Mass/volume] in Serum or Plasma [facility] Work Phone: Comment on above: Expected: 04/19/2022 , Expires: 06/19/2022 Start: 04-19-2022 End: 06-19-2022 Triiodothyronine (T3) Free [Mass/volume] in Serum or Plasma [facility] Work Phone: Comment on above: Expected: 04/19/2022 , Expires: 06/19/2022 Start: 01-21-2022 End: 03-23-2022 25-hydroxyvitamin D3 [Mass/volume] in Serum or Plasma VITAMIN D 25 HYDROXY Lab Routine Vitamin D deficiency Expected: 01/21/2022, Expires: 03/23/2022 [facility] Work Phone: Comment on above: Expected: 01/21/2022 , Expires: 03/23/2022 Start: 01-21-2022 End: 03-23-2022 CBC W Auto Differential panel - Blood CBC + DIFF Lab Routine Hypothyroidism, unspecified type Expected: 01/21/2022, Expires: 03/23/2022 [facility] Work Phone: Comment on above: Expected: 01/21/2022 , Expires: 03/23/2022 Start: 01-21-2022 End: 03-23-2022 Cobalamin (Vitamin B12) [Mass/volume] in Serum or Plasma VITAMIN B12 BLOOD Lab Routine Vitamin B12 deficiency Expected: 01/21/2022, Expires: 03/23/2022 [facility] Work Phone: Comment on above: Expected: 01/21/2022 , Expires: 03/23/2022 Start: 01-21-2022 End: 03-23-2022 Comprehensive metabolic 2000 panel - Serum or Plasma COMP METABOLIC PANEL Lab Routine Hypothyroidism, unspecified type Expected: 01/21/2022, Expires: 03/23/2022 [facility] Work Phone: Comment on above: Expected: 01/21/2022 , Expires: 03/23/2022 Start: 01-21-2022 End: 03-23-2022 Hemoglobin A1c in Blood HGB A1C Lab Routine Hyperglycemia Expected: 01/21/2022 (Approximate), Expires: 03/23/2022 [facility] Work Phone: Comment on above: Expected: 01/21/2022 (Approximate), Expires: 03/23/2022 Start: 01-21-2022 End: 03-23-2022 Lipid 1996 panel - Serum or Plasma LIPID PANEL BASIC Lab Routine Dyslipidemia Expected: 01/21/2022, Expires: 03/23/2022 [facility] Work Phone: Comment on above: Expected: 01/21/2022 , Expires: 03/23/2022 Start: 01-21-2022 End: 03-23-2022 Magnesium [Mass/volume] in Serum or Plasma MAGNESIUM BLD Lab Routine Hypothyroidism, unspecified type Expected: 01/21/2022, Expires: 03/23/2022 [facility] Work Phone: Comment on above: Expected: 01/21/2022 , Expires: 03/23/2022 Start: 01-21-2022 End: 03-23-2022 THYROID PEROXIDASE ANTIBODY BLOOD THYROID PEROXIDASE ANTIBODY BLOOD Lab Routine Hypothyroidism, unspecified type Expected: 01/21/2022, Expires: 03/23/2022 [facility] Work Phone: Comment on above: Expected: 01/21/2022 , Expires: 03/23/2022 Start: 01-21-2022 End: 03-23-2022 Thyrotropin [Units/volume] in Serum or Plasma TSH BLD Lab Routine Hypothyroidism, unspecified type Expected: 01/21/2022, Expires: 03/23/2022 [facility] Work Phone: Comment on above: Expected: 01/21/2022 , Expires: 03/23/2022 Start: 01-21-2022 End: 03-23-2022 Thyroxine (T4) free [Mass/volume] in Serum or Plasma T4 FREE/FREE THYROX Lab Routine Hypothyroidism, unspecified type Expected: 01/21/2022, Expires: 03/23/2022 [facility] Work Phone: Comment on above: Expected: 01/21/2022 , Expires: 03/23/2022 Start: 01-21-2022 End: 03-23-2022 Triiodothyronine (T3) Free [Mass/volume] in Serum or Plasma T3 FREE BLD Lab Routine Hypothyroidism, unspecified type Expected: 01/21/2022, Expires: 03/23/2022 [facility] Work Phone: Comment on above: Expected: 01/21/2022 , Expires: 03/23/2022 Start: 01-13-2022 Influenza vaccination [facility] Start: 11-11-2021 Influenza vaccination INFLUENZA (#1) [facility] Comment on above: Postponed from 01/13 (Declined at this time) Start: 10-23-2021 End: 12-23-2021 25-hydroxyvitamin D3 [Mass/volume] in Serum or Plasma VITAMIN D 25 HYDROXY Lab Routine Vitamin D deficiency Fatigue, unspecified type Expected: 10/23/2021, Expires: 12/23/2021 [facility] Work Phone: Comment on above: Expected: 10/23/2021 , Expires: 12/23/2021 Start: 10-23-2021 End: 12-23-2021 CBC W Auto Differential panel - Blood CBC + DIFF Lab Routine Fatigue, unspecified type Expected: 10/23/2021, Expires: 12/23/2021 [facility] Work Phone: Comment on above: Expected: 10/23/2021 , Expires: 12/23/2021 Start: 10-23-2021 End: 12-23-2021 Cobalamin (Vitamin B12) [Mass/volume] in Serum or Plasma VITAMIN B12 BLOOD Lab Routine Vitamin B12 deficiency Fatigue, unspecified type Expected: 10/23/2021, Expires: 12/23/2021 [facility] Work Phone: Comment on above: Expected: 10/23/2021 , Expires: 12/23/2021 Start: 10-23-2021 End: 12-23-2021 Comprehensive metabolic 2000 panel - Serum or Plasma COMP METABOLIC PANEL Lab Routine Fatigue, unspecified type Expected: 10/23/2021, Expires: 12/23/2021 [facility] Work Phone: Comment on above: Expected: 10/23/2021 , Expires: 12/23/2021 Start: 10-23-2021 End: 12-23-2021 Lipid 1996 panel - Serum or Plasma LIPID PANEL BASIC Lab Routine Dyslipidemia Expected: 10/23/2021, Expires: 12/23/2021 [facility] Work Phone: Comment on above: Expected: 10/23/2021 , Expires: 12/23/2021 Start: 10-23-2021 End: 12-23-2021 Thyrotropin [Units/volume] in Serum or Plasma TSH BLD Lab Routine Hypothyroidism, unspecified type Fatigue, unspecified type Expected: 10/23/2021, Expires: 12/23/2021 [facility] Work Phone: Comment on above: Expected: 10/23/2021 , Expires: 12/23/2021 Start: 10-23-2021 End: 12-23-2021 Thyroxine (T4) free [Mass/volume] in Serum or Plasma T4 FREE/FREE THYROX Lab Routine Hypothyroidism, unspecified type Fatigue, unspecified type Expected: 10/23/2021, Expires: 12/23/2021 [facility] Work Phone: Comment on above: Expected: 10/23/2021 , Expires: 12/23/2021 Start: 10-23-2021 End: 12-23-2021 Triiodothyronine (T3) Free [Mass/volume] in Serum or Plasma T3 FREE BLD Lab Routine Hypothyroidism, unspecified type Fatigue, unspecified type Expected: 10/23/2021, Expires: 12/23/2021 [facility] Work Phone: Comment on above: Expected: 10/23/2021 , Expires: 12/23/2021 Start: 05-15-2021 ADVANCE DIRECTIVE DISCUSSION ADVANCE DIRECTIVE DISCUSSION [facility] Start: 04-07-2021 COLORECTAL CANCER SCREENING COLORECTAL CANCER SCREENING [facility] Start: 04-07-2021 FECAL OCCULT BLOOD FECAL OCCULT BLOO D [facility] Start: 09-10-2020 BONE DENSITY BONE DENSITY [facility] Start: 09-10-2020 Bone Density Screening Bone Density Screening [facility] Start: 09-10-2020 Pneumococcal vaccination PNEUM OCOCCAL VACCINE SERIES (1 of 1 - PPSV23) [facility] Start: 09-10-2020 Pneumococcal Vaccine : 65+ (1 of 1 - PCV) Pneumococcal Vaccine: 65+ (1 of 1 - PCV) [facility] Start: 09-10-2020 PNEUMOCOCCAL: 65+ (1 - PCV) PNEUMOCOCCAL: 65+ (1 - PCV) [facility] Start: 09-10-2020 PNEUMOVAX AGE 65 AND OVER WITH 5YR LOOKBACK (#1) PNEUMOVAX AGE 65 AND OVER WITH 5YR LOOKBACK (#1) [facility] Start: 09-10-2020 Screening for osteoporosis Bone Dens ity Screening [facility] Start: 08-03-2020 Urine microalbumin profile DTA P,TDAP,TD (2 - Td or Tdap) [facility] Start: 11-21-2019 Mammography [facility] Start: 11-21-2019 Screening for malign ant neoplasm of breast Mammogram Screening [facility] Start: 10-02-2019 Thyroid stimulating hormone measurement TSH [facility] Start: 2015 RSV Vaccine (1 - 1-d ose 60+ series) RSV Vaccine (1 - 1-dose 60+ series) [facility] Start: 09-10-2005 SHINGRIX VACCINE (1 of 2) HAIRSTON GRIX VACCINE (1 of 2) [facility] Start: 09-10-2005 Zoster vaccine hzv l rafy for subcutaneous use ZOSTER (SHINGLES) VACCINE (1 of 2) [facility] Start: 09-10-2000 COLOGUARD (FIT-DNA) COLOGUARD (FIT-D NA) [facility] Start: 09-10-2000 Colonoscopy [facility] Start: 09-10-[address] COLONOGRAPHY [facility] Start: 09-10-2000 Screening for malign ant neoplasm of colon [facility] Start: 09-10-2000 SIGMOIDOSCOPY SIGMOIDOSCOPY [facility] Start: 1995 Screening mammography MAMMOGRA M SCREENING DISCUSSION [facility] Start: 09-10-1976 Screening for malign ant neoplasm of cervix CERVICAL CANCER SCREENING DISCUSSION [facility] Start: 09-10-1974 Third diphtheria, te tanus and acellular pertussis (DTaP) vaccination TDAP (ADULT) [facility] Start: 09-10-1973 HIV SCREENING HIV SCREENING [facility] Start: 09-10-1973 Tetanus vaccination TETANUS [facility] Start: 09-10-1960 COVID-19 VACCINE (#1) COVID-19 VACCI NE (#1) [facility] Start: 09-10-1960 COVID-19 VACCINE (1) COVID-19 VACCIN E (1) [facility] Start: 03-12-1956 COVID-19 VACCINE (#1) COVID-19 VACCI NE (#1) [facility] Start: 1955 Hepatitis C antibody , confirmatory test HEPATITIS C VIRUS SCREENING [facility] Start: 1955 Screening for osteoporosis DEXA SCAN DISCUSSION [facility] End: 07-06-2023 DXA-AXIAL SKELETON DXA-AXIAL SKELETON Radiology Routine Encounter for screening for osteoporosis 1 Occurrences starting 06/06/2022 until 07/06/2023 [facility] Work Phone: Comment on above: 1 Occurrences starti ng 06/06/2022 until 07/06/2023 Hemoglobin.gastroint estina l.lower [Presence] in Stool by Immunoassay FECAL OCCULT BLOOD TEST Lab Routine Screening for colon cancer Ordered: 07/19/2022 [facility] Work Phone: Comment on above: Ordered: 07/19/2022 End: 08-18-2023 LUNG VOLUMES LUNG VOLUMES PFT Routine SOB (shortness of breath) 1 Occurrences starting 07/19/2022 until 08/18/2023 [facility] Work Phone: Comment on above: 1 Occurrences starti ng 07/19/2022 until 08/18/2023 LUNG VOLUMES LUNG VOLUMES PFT Routine SOB (shortness of breath) 07/20/2022 8:42 AM EST [facility] Work Phone: End: 07-06-2023 MANDO SCREENING MANDO SCREENING Radiology Routine Encounter for screening mammogram for malignant neoplasm of breast 1 Occurrences starting 06/06/2022 until 07/06/2023 [facility] Work Phone: Comment on above: 1 Occurrences starti ng 06/06/2022 until 07/06/2023 End: 06-15-2024 MANDO SCREENING MANDO SCREENING Radiology Routine Encounter for screening mammogram for breast cancer 1 Occurrences starting 05/17/2023 until 06/15/2024 [facility] Work Phone: Comment on above: 1 Occurrences starti ng 05/17/2023 until 06/15/2024 End: 08-18-2023 Radiologic exam chest 2 views XR CHEST 2V FRONTAL/LAT Radiology Routine SOB (shortness of breath) 1 Occurrences starting 07/19/2022 until 08/18/2023 [facility] Work Phone: Comment on above: 1 Occurrences starti ng 07/19/2022 until 08/18/2023 End: 12-10-2022 Screening mammography bi 2-view breast inc cad MANDO SCREENING Radiology Routine Encounter for screening mammogram for breast cancer 1 Occurrences starting 11/10/2021 until 12/10/2022 [facility] Work Phone: Comment on above: 1 Occurrences starti ng 11/10/2021 until 12/10/2022 End: 08-18-2023 SPIROMETRY - BASELINE AND POST DILATOR SPIROMETRY - BASELINE AND POST DILATOR PFT Routine SOB (shortness of breath) 1 Occurrences starting 07/19/2022 until 08/18/2023 [facility] Work Phone: Comment on above: 1 Occurrences starti ng 07/19/2022 until 08/18/2023 SPIROMETRY - BASELIN E AND POST DILATOR SPIROMETRY - BASELINE AND POST DILATOR PFT Routine SOB (shortness of breath) 07/20/2022 8:42 AM EST [facility] Work Phone: End: 05-19-2023 STRESS ECHO TREADMILL STRESS ECHO TREADMILL Cardiology Routine Near syncope 1 Occurrences starting 05/19/2022 until 05/19/2023 [facility] Work Phone: Comment on above: 1 Occurrences starti ng 05/19/2022 until 05/19/2023 End: 06-02-2023 Us abdominal real time w/image limited US ABD RT UPPER QUADRANT Radiology Routine Elevated alkaline phosphatase level 1 Occurrences starting 05/03/2022 until 06/02/2023 [facility] Work Phone: Comment on above: 1 Occurrences starti ng 05/03/2022 until 06/02/2023 End: 07-06-2023 XR ANKLE GENERAL 3V AP/LAT/OBL RIGHT XR ANKLE GENERAL 3V AP/LAT/OBL RIGHT Radiology Routine Right ankle swelling 1 Occurrences starting 06/06/2022 until 07/06/2023 [facility] Work Phone: Comment on above: 1 Occurrences starti ng 06/06/2022 until 07/06/2023 XR ANKLE GENERAL 3V AP/LAT/OBL RIGHT XR ANKLE GENERAL 3V AP/LAT/OBL RIGHT Radiology Routine Right ankle swelling 06/06/2022 11:36 AM EST [facility] Work Phone: [facility] Immunizations Immunization Date Immunization Notes Care Provider Kareem sanders 03-24-2020 influenza, seasonal, injectable Jossy Chahal SECONDARY SET UP MAN.COUNTY [employer]INE[employer] Work Phone: [facility] Work Phone: 03-24-2020 influenza virus vaccine, unspecified formulation Said Atway DPM Work Phone: [facility] 03-18-2020 influenza, seasonal, injectable [facility] Work Phone: 10-23-2019 tetanus toxoid, redu bianka diphtheria toxoid, and acellular pertussis vaccine, adsorbed [facility] Work Phone: 03-27-2019 influenza, seasonal, injectable [facility] Work Phone: 02-19-2019 influenza, seasonal, injectable 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 SECONDARY SET UP MAN.[facility] Work Phone: [facility] Work Phone: 03-05-2018 influenza, seasonal, injectable [facility] Work Phone: 02-14-2018 influenza, seasonal, injectable 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 SECONDARY SET UP MAN.[facility] Work Phone: [facility] Work Phone: 08-03-2010 tetanus toxoid, redu bianka diphtheria toxoid, and acellular pertussis vaccine, adsorbed 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 SECONDARY SET UP MAN.[facility] Work Phone: [facility] Work Phone: Payers Date Payer Category Payer Self-pay [id number] 2023 Unknown [id number] 2022 Medicare [id number] 2021 Medicare [id number] 2021 Medicare HUMANA MEDICARE HUMANA GOLD PLUS [id number] 2021-Present [phone] [address] [address] [place] [address] O [id number] 2021 Medicare [id number] 2017 Unknown [id number] 1955 Unknown [id number] 1955 Unknown [id number] 1955 Unknown [id number] 1955 Unknown [id number] Medicare MEDICARE PART A B [id number] Unknown [id number] Unknown [employer] OTHER [id number] Unknown PHYSICIAN [employer] CO [id number] Unknown [facility] [id number] Unknown [id number] Unknown [id number] Social History Date Type Detail Facility Start: 09-30-2018 End: 01-21-2022 Tobacco smoking status NHIS Ex-smoker [facility] Work Phone: End: 05-15-1988 History of tobacco use Current smoker [facility] Work Phone: End: 05-15-1988 History of tobacco use Cigarette Smoker [facility] Work Phone: Start: 06-23-2021 End: 07-20-2022 Alcohol intake Current non-drinker of alcohol (finding) [facility] Start: 1955 Sex Assigned At Not on file [facility] Start: 09-30-2018 End: 10-05-2022 Cigarettes smoked current (pack per day) - Reported 2 [facility] Start: 09-30-2018 End: 01-21-2022 Tobacco use and exposure Smokeless tobacco non-user [facility] Start: 07-19-2021 End: 01-21-2022 Exposure to SARS-CoV-2 (event) Not sure [facility] Start: 1955 Sex Assigned At Female W [facility] Work Phone: Start: 10-05-2022 End: 11-25-2022 Tobacco use panel [facility] Adult Depression Screening Assessment 0 [facility] Medical Equipment Procedure Code Equipment Code Equipment Origin al Text Equipment Identifier Dates Bwe-Zb-E-Kind Implant - [id number] Start: 01-31-2012 Comment on above: Description: [id number],S CREW Screw Bn 3.5mm 45mm Ti Harris - [id number] Start: 01-31-2012 Wire Fix .054in 6in Krsh Ss Ns - [id number] Start: 01-31-2012 Comment on above: Description: [...] Shin Arias DO documented in this encounter [facility] 07-07-2023 Miscellaneous Notes Pt. informed detailed [...] Shin Arias DO documented in this encounter [facility] 06-23-2023 Miscellaneous Notes The following approved medication requests have been transmitted electronically. Requested Prescriptions Signed Prescriptions Disp Refills dextroamphetamine-amphetamine (ADDERALL) 10 mg tablet 30 tablet 0 Sig: Take 0.5-1 tablets by mouth once daily for 30 days. Authorizing Provider: IVANA MITCHELL APRN.[facility] website checked and validated. All prescriptions have [...] Mary Jo Rodriguez. documented in this encounter [facility] 05-17-2023 Note Patient Outreach (IN TMMN) HENRY OLIVEIRA ([id number]) 1955 F Date Time Provider Department 05/17/23 SHIN ARIAS INTGELY During your visit today, we recorded the following information about you: Allergies As of Date: 05/17/2023 Noted Allergy Reaction BACTRIM (SULFAMETHOXAZOLE) 05/23/2014 4 - Hives MORPHINE SULFATE 03/30/2005 9 - Itching TEA TREE OIL 07/22/2009 2 - Rash Date Reviewed: 05/03/2023 Reviewed by: Lupe Stoll LPN - Fully Assessed Visit Diagnosis:Encounter for screening mammogram for breast cancer [Z12.31] Order(s):[facility] SCREENING [[id number]] Order #: [id number] FUTURE Prescriptions as of 05/22/2023 - dextroamphetamine-amphetamine [...] daily as needed (skin infection). - omega 2-fjr-its-fish oil (FISH OIL) 100-160-1,000 mg cap Take [...] [Z77.018] 03/24/2021 Chito (more content not included)... [facility] 05-09-2023 Note HNO ID: [id number] Author: Viji Marrero Service: ? Author Type: ? Type: Progress Notes Filed: 05/09/2023 12:09 PM Note Text: POPULATION HEALTH NAVIGATION OUTREACH Action/FYI 2nd call, left vm Patient Identified by Name and : NO Outreach Outcome/Action Unable to reach patient: Left message Ventrixt message sent Did you use a PCP flex slot to schedule this appointment? No Reason for Outreach Care Gap or Scheduling/Wellness visits Payer: Payor: O MEDICARE / Plan: MMO [employer]AD[employer] HMO / Product Type: HMO / Care [...] Viji Marrero May 09, 2023 12:09 PM [facility] 05-09-2023 Note Patient Outreach (AC CC) HENRY OLIVEIRA ([id number]) 1955 F Date Time Provider Department 05/09/23 PCP (HISTORICAL) [facility] During your visit today, we recorded the following information about you: NirmaldustinDelbert monaele 05/09/2023 12:09 PM Signed POPULATION HEALTH NAVIGATION OUTREACH Action/FYI 2nd call, left vm Patient Identified by Name and : NO Outreach Outcome/Action Unable to reach patient: Left message DabKick message sent Did you use a PCP flex slot to schedule this appointment? No Reason for Outreach Care Gap or Scheduling/Wellness visits Payer: Payor: [employer] MEDICARE / Plan: PIE Software HMO / Product Type: HMO / Care [...] daily as needed (skin infection). - omega 4-ckw-bke-fish oil (FISH OIL) 100-160-1,000 mg cap Take [...] deficit [R41.840] 02/28/2017 (more content not included)... [facility] 05-04-2023 Note HNO ID: [id number] Author: Viji Marrero Service: ? Author Type: [...] Viji Marrero May 04, 2023 12:04 PM [facility] 05-04-2023 Note Patient Outreach (AC CC) HENRY OLIVEIRA ([id number]) 1955 F Date Time Provider Department 05/04/23 PCP (HISTORICAL) [facility] During your visit today, we recorded the following information about you: Viji Marrero 05/04/2023 12:04 PM Signed POPULATION HEALTH NAVIGATION OUTREACH Action/FYI Left vm Patient Identified by Name and : NO Outreach Outcome/Action Unable to reach patient: Left message Ventrixt message sent Did you use a PCP flex slot to schedule this appointment? No Reason for Outreach Care Gap or Scheduling/Wellness visits Payer: Payor: [facility] MEDICARE / Plan: MMO MEDADVANTAGE HMO / [...] daily as needed (skin infection). - omega 4-yrz-ofd-fish oil (FISH OIL) 100-160-1,000 mg cap Take [...] 02/28/2017 Mood diso (more content not included)... [facility] 05-04-2023 History of Present illness Narrative POPULATION HEALTH NAVIGATION OUTREACH Action/FYI Left vm Patient Identified by Name and : NO Outreach Outcome/Action Unable to reach patient: Left message mobifriendshart message sent Did you use a PCP flex slot to schedule this appointment? No Reason for Outreach Care Gap or Scheduling/Wellness visits Payer: Payor: [employer] MEDICARE / Plan: PIE Software HMO / Product Type: HMO / Care [...] 2023 12:04 PM documented in this encounter [facility] 05-03-2023 Note HNO ID: [id number] Author: Shin Arias, DO Service: ? Author [...] prolonged standing or walking. 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 Did have some b/l [...] this brings her melyssa. 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 Interested in seeing Business Applications Analyst at [facility]. PAST MEDICAL HISTORY Diagnosis Date Abnormal glandular Papanicolaou smear of cervix Abn. Pap smear (cervix) Asymptomatic varicose veins Depressive disorder, not elsewhere classified 09/27/2006 Hearing decreased Hyperlipidemia Hypothyroidism 2010 HERNAN on CPAP DME [facility] Peripheral vascular disease, unspecified (HCC) varicose veins Sleep apnea CPAP Supraspinatus tendon tear 04/03/2012 right shoulder Vitamin B12 deficiency Vitamin D deficiency 10/30/2013 PAST SURGICAL HISTORY Procedure Laterality Date COLPOSCOPY CERVIX UPPER/ADJACENT VAGINA Colposcopy CORRECT BUNION,SIMPLE 01-30 (more content not included)... [facility] 04-11-2023 Miscellaneous Notes Patient has been identified by name and date of : Yes Requested Prescriptions Pending Prescriptions Disp Refills dextroamphetamine-amphetamine (ADDERALL) 10 mg tablet 30 tablet 0 Sig: Take 0.5-1 tablets by mouth once daily for 30 days. RX INSTRUCTIONS: Patient aware RX will be sent to pharmacy. No need to notify patient. Komal Smith MA [facility] 12/2022 Nov 04/2023 Last refill; 02/20/2023 Patient has been identified by name and date of : Yes Requested Prescriptions Pending Prescriptions Disp Refills dextroamphetamine-amphetamine (ADDERALL) 10 mg tablet 30 tablet 0 Sig: Take 0.5-1 tablets by mouth once daily for 30 days. RX INSTRUCTIONS: Patient aware RX will be sent to pharmacy. No need to notify patient. Jamia Young documented in this encounter [facility] 02-20-2023 Miscellaneous Notes TC to patient [...] is asking it be sent to the [facility] in [place]. Pended order pharmacy has been updated. Please resend. Pharmacy verified in [facility] Patient has been identified by name [...] advise. Gayla Peck documented in this encounter [facility] 01-26-2023 Miscellaneous Notes Patient given results and verbalized understanding of instructions given. Marjorie Cui Left message for patient to return call. Xochilt Thomson LPN ----- Message from Lida Cardenas APRN.COUNTY ENGINEER sent at 01/26/2023 7:21 AM EDT ----- [...] care provider or schedule a visit with [facility]. A test is not recommended to return to work/school when meeting the above criteria. Lida Cardenas APRN.COUNTY ENGINEER documented in this encounter [facility] 01-25-2023 Note HNO ID: [id number] Author: Chris Rendon MD Service: ? Author [...] 1 tablet by mouth once daily. omega 4-gtx-aqw-fish oil (FISH OIL) 100-160-1,000 mg cap Take [...] INFLUENZA A/B NAAT, ROUTINE Chris Rendon MD [facility] 01-25-2023 History of Present illness Narrative [...] 1 tablet by mouth once daily. omega 8-knp-lin-fish oil (FISH OIL) 100-160-1,000 mg cap Take [...] Chris Rendon MD documented in this encounter [facility] 12-26-2022 Note HNO ID: [id number] Author: Alviia Leyva PA-C Service: ? Author Type: Physician Server Systems Administrator Type: Progress Notes Filed: 12/26/2022 9:17 AM [...] decreased Hyperlipidemia Hypothyroidism 2010 HERNAN on CPAP [facility] Peripheral vascular disease, unspecified (HCC) varicose [...] mouth once daily. 90 tablet 1 omega 0-rkq-daj-fish oil (FISH OIL) 100-160-1,000 mg cap Take 1 capsul (more content not included)... [facility] 12-26-2022 Miscellaneous Notes The following approved medication requests have been transmitted electronically. Requested Prescriptions Signed Prescriptions Disp Refills dextroamphetamine-amphetamine (ADDERALL) 10 mg tablet 30 tablet 0 Sig: Take 0.5-1 tablets by mouth once daily for 30 days. Authorizing Provider: IVANA MITCHELL APRN.[facility] website checked and validated. All prescriptions have [...] advise. Lizzy Peck documented in this encounter [facility] 12-26-2022 History of Present illness Narrative [...] decreased Hyperlipidemia Hypothyroidism 2010 HERNAN on CPAP [facility] Peripheral vascular disease, unspecified (HCC) varicose [...] mouth once daily. 90 tablet 1 omega 7-epp-sfd-fish oil (FISH OIL) 100-160-1,000 mg cap Take [...] Alivia Leyva PA-C documented in this encounter [facility] 11-25-2022 Note HNO ID: [id number] Author: Alivia Leyva PA-C Service: ? Author Type: Physician Server Systems Administrator Type: Progress Notes Filed: 11/25/2022 5:53 PM [...] of self injury. Continues to work at [employer], job that she enjoys related to the [...] decreased Hyperlipidemia Hypothyroidism 2010 HERNAN on CPAP [facility] Peripheral vascular disease, unspecified (HCC) varicose [...] 0 mometasone (ELOCON) (more content not included)... [facility] 11-25-2022 History of Present illness Narrative [...] of self injury. Continues to work at [employer], job that she enjoys related to the [...] decreased Hyperlipidemia Hypothyroidism 2010 HERNAN on CPAP [facility] Peripheral vascular disease, unspecified (HCC) varicose [...] mouth once daily. 90 tablet 1 omega 4-nyq-wpj-fish oil (FISH OIL) 100-160-1,000 mg cap Take [...] Z86.73 40-minute appointment almost all spent in [id number]-pn-esea counseling and education. Follow-up 4 weeks to see how fluoxetine and fluid restrictions are affecting sleep Alivia Leyva PA-C documented in this encounter [facility] 10-19-2022 Note HNO ID: [id number] Author: Shin Arias, DO Service: ? Author [...] given. 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 Did have some b/l [...] decreased Hyperlipidemia Hypothyroidism 2010 HERNAN on CPAP [facility] Peripheral vascular disease, unspecified (HCC) varicose veins Sleep apnea CPAP Supraspinatus tendon tear 04/03/2012 right shoulder Vitamin B12 deficiency Vitamin D deficiency 10/30/2013 PAST SURGICAL HISTORY Procedure Laterality Date COLPOSCOPY CERVIX UPPER/ADJACENT VAGINA (more content not included)... [facility] 10-19-2022 History of Present illness Narrative [...] given. 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 Did have some b/l [...] decreased Hyperlipidemia Hypothyroidism 2010 HERNAN on CPAP [facility] Peripheral vascular disease, unspecified (HCC) varicose [...] 1 tablet by mouth once daily. omega 7-olt-mtm-fish oil (FISH OIL) 100-160-1,000 mg cap Take [...] See patient instructions. Shin Arias DO [address] [place] [address] documented in this encounter [facility] 10-05-2022 Note HNO ID: [id number] Author: Shin Arias DO Service: ? Author [...] given. 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 [facility] 10-04-2022 Miscellaneous Notes [facility] and [facility]. All prescriptions have been APPROPRIATELY filled. No suspicious activity was identified. 10/04/2022 by Shin Arias DO Last office visit: 08/10/22 F/u scheduled: 10/05/22 Last refilled on: Adderall #30 on 06/21/22 Shanti Cary Ma Patient has been identified by name and date of : Yes Requested Prescriptions Pending Prescriptions Disp Refills dextroamphetamine-amphetamine (ADDERALL) 10 mg tablet 30 tablet 0 Sig: Take 0.5-1 tablets by mouth once daily for 30 days. RX INSTRUCTIONS: Patient aware RX will be sent to pharmacy. No need to nofity patient. Controlled medication - must be call in. Corrine Peck documented in this encounter [facility] 09-07-2022 Miscellaneous Notes Rec'd fax and [...] provided. This was not correct. Pharmacy is [phone]. PA already completed and denied. Tier exception is being reviewed. Will rec'd response via fax. The reference number for this is [id number]. This call took over 20 minutes. Patient calling said she needs formulary exception done for the Amour thyroid. Henry Oliveira Sawyer: [id number] Kristen WINSTON help? Call us at Outcome Deniedtoday Request Reference Number: [id number]. ARMOUR THYRO TAB 90MG is denied for not meeting the prior authorization requirement(s). Details of this decision are in the notice attached below or have been faxed to you Henry Oliveira Sawyer: [id number] - CATRACHITO help? Call us at Status Sent to [facility] Toano Thyroid 90MG tablets Form [facility] Electronic Prior Authorization Form (2016 NCPDP) THE OFFICE CAN COMPLETE A PA. we have no pharmacy benefits on file. Will have to review via covermymeds.We do not have the ability to add meds to a formulary. Pt called in and reports office will need to call insurance phone # [phone] to get their Toano Thyroid added to insurance formulary. Pt reports she is almost out of medication. Prior Authorization Documentation Prior authorization requested for the following medication: Medication: Toano Thyroid Provider: Dr Arias Insurance Company Name: [facility] Medicare Insurance [employer] Phone number: [phone] Patient ID number: [id number] Pharmacy Name: [facility] Telephone number: [phone] documented in this encounter [facility] 08-10-2022 Note HNO ID: [id number] Author: Shin Arias, DO Service: ? Author [...] Hyperlipidemia Hypothyroidism 2010 HERNAN on CPAP DME [facility] Peripheral vascular disease, unspecified (HCC) varicose veins [...] repair Current Outpatient Medications Medication Sig omega 1-kyx-akr-fish oil (FISH OIL) 100-160-1,000 mg cap Take [...] 25 MG TABLET (more content not included)... [facility] 08-10-2022 History of Present illness Narrative [...] decreased Hyperlipidemia Hypothyroidism 2010 HERNAN on CPAP [facility] Peripheral vascular disease, unspecified (HCC) varicose [...] repair Current Outpatient Medications Medication Sig omega 0-ezn-qin-fish oil (FISH OIL) 100-160-1,000 mg cap Take [...] See patient instructions. Shin Arias DO [address] [place] [address] documented in this encounter [facility] 08-09-2022 Miscellaneous Notes Appointment made message left on VM. Please schedule her an appt. I have 3 openings tomorrow or can see MODEL TECHNICIAN as well Shin Arias DO Patient calling asking for appt today with PCP she has poison ismael rash and hands and feet and is spreading. Patient refuses to go to express care, aware MODEL TECHNICIAN are out of office today. Please advise documented in this encounter [facility] 08-05-2022 Miscellaneous Notes Pt informed, verbalized [...] Shin Arias DO documented in this encounter [facility] 07-22-2022 Miscellaneous Notes Pt. informed via My Chart. Please inform patient that her PFTs and lung volumes were normal as below IMPRESSION: Spirometry is normal. There was not a significant bronchodilator response. The TLC, RV and RV/TLC are normal. Shin Arias DO documented in this encounter [facility] 07-21-2022 Miscellaneous Notes Sent Plusmohart message Jaz Solis The following approved medication requests have been transmitted electronically. Requested Prescriptions Signed Prescriptions Disp Refills ARMOUR THYROID 90 mg tablet 30 tablet 0 Sig: Take 1 tablet by mouth once daily. Authorizing Provider: JOSSY GUSTAFSON APRN.COUNTY ENGINEER Pt calling office to request a 1 month supply of Toano thyroid to be sent to [facility] in [place]. Rx pending. Please review and advise. Neri Robles LPN documented in this encounter [facility] 07-20-2022 Note HNO ID: [id number] Author: ONEYDA Naranjo Service: ? Author Type: Respiratory Therapist Type: Progress Notes Filed: 07/20/2022 9:11 AM Note Text: PULM FUNCTION SMARTBLOCK: Provider: Shin Arias DO Assisting Tech: ONEYDA Naranjo Spirometry w/BD: 1 LV - Box: 1 [facility] 07-20-2022 History of Present illness Narrative PULM FUNCTION SMARTBLOCK: Provider: Shin Arias DO Assisting Tech: ONEYDA Naranjo Spirometry w/BD: 1 LV - Box: 1 documented in this encounter [facility] 07-19-2022 Note HNO ID: [id number] Author: Shin Arias, DO Service: ? Author Type: Physician Type: Progress Notes Filed: 07/19/2022 5:20 PM Note Text: CC: Henry Oliveira is a 66 year old female who presents to the office for follow up HPI: Right ankle and foot pain, was told needs to wear a Boot then x-rays then likely brace for right ankle tendinitis, seen by Business Applications Analyst, no surgery needed at this time. Going to have metal fillings removed from her mouth. Feels that this is affecting her health Mood, feels she is managing well with being off the Prozac medication, doesn't feel she needs anything at this time. Has good foundation with buddhist and buddhist friends as well. Hypothyroidism, taking her armour thyroid medication, cost is expensive, doesn't want to be on synthetic medication. Hair is thinning, + chronic fatigue + shortness of breath, mostly at buddhist when she is trying to sing or [...] decreased Hyperlipidemia Hypothyroidism 2010 HERNAN on CPAP [facility] Peripheral vascular disease, unspecified (HCC) varicose [...] repair Current Outpatient Medications Medication Sig omega 1-kgy-jwj-fish oil (FISH OIL) 100-160-1,000 mg cap Take [...] No edema, norm (more content not included)... [facility] 07-19-2022 History of Present illness Narrative CC: Henry Oliveira is a 66 year old female who presents to the office for follow up HPI: Right ankle and foot pain, was told needs to wear a Boot then x-rays then likely brace for right ankle tendinitis, seen by Business Applications Analyst, no surgery needed at this time. Going to have metal fillings removed from her mouth. Feels that this is affecting her health Mood, feels she is managing well with being off the Prozac medication, doesn't feel she needs anything at this time. Has good foundation with buddhist and buddhist friends as well. Hypothyroidism, taking her armour thyroid medication, cost is expensive, doesn't want to be on synthetic medication. Hair is thinning, + chronic fatigue + shortness of breath, mostly at buddhist when she is trying to sing or [...] decreased Hyperlipidemia Hypothyroidism 2010 HERNAN on CPAP [facility] Peripheral vascular disease, unspecified (HCC) varicose veins Sleep apnea CPAP Supraspinatus tendon tear 04/03/2012 right shoulder Vitamin B12 deficiency Vitamin D deficiency 10/30/2013 PAST SURGICAL HISTORY Procedure Laterality Date COLPOSCOPY CERVIX UPPER/ADJACENT VAGINA Colposcopy CORRECT BUNION,SIMPLE 9-18-12 Bunion, left DILATION & CURETTAGE DX&/THER NONOBSTETRIC 1980s Dilation & curettage LIG/TRNSXJ FLP TUBE ABDL/VAG APPR UNI/BI COMPLETE Tubal ligation PAST SURGICAL HISTORY OF 11/2003 breast biopsy right, benign PAST SURGICAL HISTORY OF 1997 wrist surgery - after fracture, right PAST SURGICAL HISTORY OF 06/28/13 arthroscopy with open rotator cuff repair Current Outpatient Medications Medication Sig omega 3-rmf-bsn-fish oil (FISH OIL) 100-160-1,000 mg cap Take [...] ICD9: 727.06, ICD10: M77.51 - f/u with Business Applications Analyst 5. SOB (shortness of breath) - ICD9: [...] See patient instructions. Shin Arias DO [address] [place] [address] documented in this encounter [facility] 06-21-2022 Miscellaneous Notes Pt informed, verbalized understanding Jaz Solis Yes, please inform patient that [facility] Shin Arias DO Patient reports Baljinder is out of adderall 10 mg. Reports she has 4 pills left. Asking if provider would send Rx to [facility]? Pended. documented in this encounter [facility] 06-20-2022 Miscellaneous Notes PDMP website checked and validated. All prescriptions have been APPROPRIATELY filled. No suspicious activity was identified. 06/20/2022 by Jossy Gustafson APRN.COUNTY ENGINEER The following approved medication requests have been transmitted electronically. Requested Prescriptions Signed Prescriptions Disp Refills dextroamphetamine-amphetamine (ADDERALL) 10 mg tablet 30 tablet 0 Sig: Take 0.5-1 tablets by mouth once daily for 30 days. Authorizing Provider: JOSSY GUSTAFSON APRN.ARA NOHEMI 06/06/22 NOV 07/19/22 Patient has been identified by name and date of : Yes Requested Prescriptions Pending Prescriptions Disp Refills dextroamphetamine-amphetamine (ADDERALL) 10 mg tablet 30 tablet 0 Sig: Take 0.5-1 tablets by mouth once daily for 30 days. RX INSTRUCTIONS: Patient aware RX will be sent to pharmacy. No need to notify patient. Angela Buchanan Pss documented in this encounter [facility] 06-09-2022 Miscellaneous Notes Status on below was pt scheduled? Rosamaria Montaño LPN Telephone on 05/11/22 STRESS ECHO TREADMILL .please schedule Thanks, Bonifacio Lyeva PA-C Will send to Bonifacio to review [...] Rosamaria Montaño LPN documented in this encounter [facility] 06-08-2022 Miscellaneous Notes Patient called and [...] within 2 weeks -- get opinion of construction technology instructor. Thank you, Jossy Gustafson APRN.COUNTY ENGINEER Patient calls to request results of right ankle x-ray. Reviewed x-ray results and OV note from 06/06/2022. Patient asking if any further instructions from provider. Patient aware provider out of office today and will return tomorrow. Please review and advise, Genie Calles RN documented in this encounter [facility] 06-06-2022 Instructions Cydney Mahmood LPN - [...] usual activities immediately. documented in this encounter [facility] 06-06-2022 History of Present illness Narrative [...] hesitant and worried about going back to construction technology instructor for repeat surgery on other foot. Past medical history, appointments, medications, allergies reviewed. Previous Medical History PAST MEDICAL HISTORY Diagnosis Date Abnormal glandular Papanicolaou smear of cervix Abn. Pap smear (cervix) Asymptomatic varicose veins Depressive disorder, not elsewhere classified 09/27/2006 Hearing decreased Hyperlipidemia Hypothyroidism 2010 HERNAN on CPAP DME [facility] Peripheral vascular disease, unspecified (HCC) varicose veins [...] within 1-2 weeks, may need to see construction technology instructor about bunion correction. Pt agrees. Has recommendation of which construction technology instructor she would like to go to if [...] Patient agreeable to treatment plan. Jossy Chahal APRN.ARA [address] [place] [address] documented in this encounter [facility] 05-19-2022 History of Present illness Narrative [...] decreased Hyperlipidemia Hypothyroidism 2010 HERNAN on CPAP [facility] Peripheral vascular disease, unspecified (HCC) varicose [...] Alivia Leyva PA-C documented in this encounter [facility] 05-17-2022 Miscellaneous Notes Patient has been [...] Jazlyn Marquez RN documented in this encounter [facility] 05-11-2022 Miscellaneous Notes PDMP website checked [...] Lupe Garcia Pss documented in this encounter [facility] 05-11-2022 Miscellaneous Notes Spoke with pt [...] Shin Arias DO documented in this encounter [facility] 05-10-2022 History of Present illness Narrative 66 year old female with hx anxiety, depression, ADD, hypothyroidism, HERNAN, stroke r/t right cerebellar artery, VA stenosis with c/o episode hot, weak, sick to stomach . Herminie like when she had her stroke. 9:30a Giving an infirm friend a bath: she was standing, Tawana was bent over washing under belly and suddenly felt sick to stomach, weak, drove home. Episode came up from toes, hot all over, nausea, weak, not syncopal but somewhat lightheaded. No focal symptoms. Herminie somewhat like sx when she had her [...] normal carotid flow. 09/29/2018 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 Had recent surgery for cataracts at [facility] Is recently fully retired, taking care of 2 granddaughters 2 days a week. Is looking forward hopefully to be able to travel a little eventually but unsure if will be able due to financials. Has tapered off her Prozac and feels overall her mood is stable. Relies on her Caodaism audrey and friends for support. 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 Need for follow up with Business Applications Analyst if exercises don't help symptoms Shin Arias DO Return if no improvement. Follow up with Shin Arias DO. To ER if develops chest pain, shortness of breath Discussed risks, benefits, alternatives, and potential side effects of medications. Patient/Guardian expressed understanding and agreed with the plan. See patient instructions. Shin Arias DO [address] [place] [address] documented in this encounter [facility] 03-16-2022 Miscellaneous Notes PDMP website checked [...] Lupe Garcia Pss documented in this encounter [facility] 01-21-2022 Instructions Shin Arias DO - 01/21/2022 12:31 PM EDT Vitamin B complex in the AM- liquid or chewable (with at least 2000 mcg or more of vitamin B12 within it) documented in this encounter [facility] 01-21-2022 History of Present illness Narrative [...] her mood is stable. Relies on her Caodaism audrey and friends for support. Hypothyroidism, + fatigue, she is unsure if this is related to her thyroid dx or her HERNAN and not tolerating masks well. PAST MEDICAL HISTORY Diagnosis Date Abnormal glandular Papanicolaou smear of cervix Abn. Pap smear (cervix) Asymptomatic varicose veins Depressive disorder, not elsewhere classified 09/27/2006 Hearing decreased Hyperlipidemia Hypothyroidism 2010 HERNAN on CPAP DME [facility] Peripheral vascular disease, unspecified (HCC) varicose veins [...] agreed with the plan. Shin Arias DO [address] [place] [address] documented in this encounter [facility] 01-19-2022 Miscellaneous Notes The following approved medication requests have been transmitted electronically. Requested Prescriptions Signed Prescriptions Disp Refills dextroamphetamine-amphetamine (ADDERALL) 10 mg tablet 30 tablet 0 Sig: Take 0.5-1 tablets by mouth once daily for 30 days. Authorizing Provider: IVANA MITCHELL APRN.COUNTY ENGINEER [facility] checked and validated. All prescriptions have [...] Angela Buchanan Pss documented in this encounter [facility] 12-31-2021 Miscellaneous Notes Patient has been [...] Last refill: 05/2021 documented in this encounter [facility] 11-25-2021 Miscellaneous Notes The following approved medication requests have been transmitted electronically. Signed Prescriptions Disp Refills dextroamphetamine-amphetamine (ADDERALL) 10 mg tablet 30 tablet 0 Sig: Take 0.5-1 tablets by mouth once daily for 30 days. SANDRA Class: C-II RADHA: No Authorizing Provider: JOSSY CHAHAL APRN.CNP PDMP website checked and validated. All prescriptions have been APPROPRIATELY filled. No suspicious activity was identified. 11/25/2021 by Jossy Chahal APRN.CNP Pharmacy verified in Epic Patient has been [...] Gayla Hernandez Pss documented in this encounter [facility] 10-23-2021 History of Present illness Narrative CC: Henry Oliveira is a 66 year old female who presents to the office for follow up HPI: Mood, overall feels the Prozac and prn trazodone for insomnia is helping symptoms stay stable. She is still enjoying watching her granddaughters and buddhist activities. Hypothyroidism, taking armour thyroid hormone supplement [...] Hyperlipidemia Hypothyroidism 2010 HERNAN on CPAP DME [facility] Peripheral vascular disease, unspecified (HCC) varicose veins [...] plan. See patient instructions. Shin Arias DO [address] [place] [address] documented in this encounter [facility] 10-22-2021 Instructions Shin Arias DO - 10/22/2021 4:46 PM EDT Change your Marley to Zyrtec 10 mg or to Xyzal 5-10 mg a day for allergy symptoms Eye lubricating drops or allergy eye drops 1-2 times a day to help eye symptoms. documented in this encounter [facility] 10-08-2021 Miscellaneous Notes [facility] checked and validated. All prescriptions have been APPROPRIATELY filled. No suspicious activity was identified. 10/08/2021 by Jossy Chahal APRN.CNP The following approved [...] Jo Sedinger [employer] documented in this encounter [facility] 09-09-2021 Miscellaneous Notes [facility] checked and [facility]. All prescriptions have [...] advise. Sera PECK documented in this encounter [facility] 08-09-2021 Miscellaneous Notes The following approved medication requests have been transmitted electronically. Signed Prescriptions Disp Refills ARMOUR THYROID 90 mg 90 tablet 3 Sig: Take 1 tablet by mouth daily before breakfast. RADHA: Yes Authorizing Provider: JOSSY CHAHAL APRN.CNP documented in this encounter [facility] 07-29-2021 History of Present illness Narrative [...] pain as well as short term and intermission coordinator results of neglecting the mechanics of this. [...] to address this. documented in this encounter [facility] 06-30-2021 Miscellaneous Notes Pt notified via [employer] message Jaz Addison Ma The following approved medication requests have been transmitted electronically. Signed Prescriptions Disp Refills FLUoxetine (PROZAC) 20 mg capsule 90 capsule 1 Sig: Take 1 capsule by mouth once daily. RADHA: No Authorizing Provider: SHIN ARIAS DO Please load rx's needed Shin rAias DO PT called and wanted her medication to be sent to [facility] in [place] instead of [facility]. documented in this encounter [facility] 11-04-2013 History of Past i llness [...] of this encounter (statuses as of 08/09/2021) [facility] History of Past illness Narrative* Problem [...] of this encounter (statuses as of 09/09/2021) [facility] History of Past illness Narrative* Problem [...] of this encounter (statuses as of 10/08/2021) [facility] History of Past illness Narrative* Problem [...] of this encounter (statuses as of 10/16/2021) [facility] Past illness Narrative* Problem [...] of this encounter (statuses as of 10/23/2021) [facility] Narrative* Problem [...] of this encounter (statuses as of 11/15/2021) [facility] Narrative* Problem [...] of this encounter (statuses as of 11/25/2021) [facility] Narrative* Problem [...] of this encounter (statuses as of 12/31/2021) [facility] Narrative* Problem [...] of this encounter (statuses as of 01/19/2022) [facility] Narrative* Problem [...] of this encounter (statuses as of 01/21/2022) [facility] Narrative* Problem [...] of this encounter (statuses as of 03/16/2022) [facility] Narrative* Problem [...] of this encounter (statuses as of 04/19/2022) [facility] Narrative* Problem [...] of this encounter (statuses as of 05/17/2022) [facility] Narrative* Problem [...] of this encounter (statuses as of 05/18/2022) [facility] Narrative* Problem [...] of this encounter (statuses as of 05/20/2022) [facility] Narrative* Problem [...] of this encounter (statuses as of 05/21/2022) [facility] Narrative* Problem [...] of this encounter (statuses as of 06/06/2022) [facility] Narrative* Problem [...] of this encounter (statuses as of 06/08/2022) [facility] N[facility]ative* Problem [...] of this encounter (statuses as of 06/09/2022) [facility] N[facility]ative* Problem [...] of this encounter (statuses as of 06/21/2022) [facility] Narrative* Problem [...] of this encounter (statuses as of 06/22/2022) [facility] Narrative* Problem [...] of this encounter (statuses as of 07/20/2022) [facility] Narrative* Problem [...] of this encounter (statuses as of 07/20/2022) [facility] Narrative* Problem [...] of this encounter (statuses as of 07/21/2022) [facility] Narrative* Problem [...] of this encounter (statuses as of 07/22/2022) [facility] Narrative* Problem [...] of this encounter (statuses as of 08/05/2022) [facility] N[facility]ative* Problem [...] of this encounter (statuses as of 08/10/2022) [facility] Narrative* Problem [...] of this encounter (statuses as of 08/10/2022) [facility] N[facility]ative* Problem [...] of this encounter (statuses as of 09/07/2022) [facility] N[facility]ative* Problem [...] of this encounter (statuses as of 10/19/2022) [facility] Narrative* Problem [...] of this encounter (statuses as of 11/26/2022) [facility] Narrative* Problem [...] of this encounter (statuses as of 12/26/2022) [facility] Narrative* Problem [...] of this encounter (statuses as of 12/26/2022) [facility] Narrative* Problem [...] of this encounter (statuses as of 01/26/2023) [facility] Narrative* Problem [...] of this encounter (statuses as of 01/27/2023) [facility] Narrative* Problem [...] of this encounter (statuses as of 02/21/2023) [facility] Narrative* Problem [...] of this encounter (statuses as of 04/13/2023) [facility] Narrative* Problem [...] of this encounter (statuses as of 05/05/2023) [facility] Narrative* Problem [...] of this encounter (statuses as of 05/22/2023) [facility] Narrative* Problem [...] of this encounter (statuses as of 06/23/2023) [facility] Narrative* Problem [...] of this encounter (statuses as of 07/07/2023) [facility] Narrative* Problem [...] of this encounter (statuses as of 07/15/2023) [facility] Narrative* Problem [...] as of this encounter (statuses as of 08/05/2023) [facility] Diagnosis Hypothyroidism, unspecified type documented [facility] this [facility] Diagnosis Bilateral foot pain- Primary Pain in limb Bilateral foot pain Pain in limb Bilateral foot pain Pain in limb [facility] Concentration deficit Attention or concentration deficit [facility] Diagnosis Anxiety with depression Mood disorder (HCC) Unspecified episodic mood disorder documented [facility] Diagnosis Anxiety with depression- Primary Mood disorder (HCC) Unspecified episodic mood disorder Concentration deficit Attention or concentration deficit Hypothyroidism, unspecified type Vitamin B12 deficiency Other B-complex deficiencies Vitamin D deficiency Unspecified vitamin D deficiency Fatigue, unspecified type Dyslipidemia Other and unspecified hyperlipidemia [facility] Diagnosis Encounter for screening mammogram for breast cancer documented [facility] Diagnosis Concentration deficit Attention or concentration deficit [facility] Diagnosis Situational insomnia Transient disorder of initiating or maintaining sleep Anxiety with depression [facility] Diagnosis Concentration deficit Attention or concentration deficit [facility] Diagnosis Age-related cataract of both eyes, unspecified age-related cataract type- Primary Double vision Diplopia Vitamin B12 deficiency Other B-complex deficiencies Vitamin D deficiency Unspecified vitamin D deficiency Hypothyroidism, unspecified type Dyslipidemia Other and unspecified hyperlipidemia Hyperglycemia Other abnormal glucose Anxiety with depression [facility] Diagnosis Concentration deficit Attention or concentration deficit documented [facility] Diagnosis Vitamin B12 deficiency- Primary Other B-complex deficiencies Vitamin D deficiency Unspecified vitamin D deficiency Dyslipidemia Other and unspecified hyperlipidemia Hypothyroidism, unspecified type Elevated alkaline phosphatase level Other nonspecific abnormal serum enzyme levels Chronic right shoulder pain Pain in joint, shoulder region Chronic pain of right ankle documented [facility] this encounter [facility] noteNo assessment information availableWPremier [facility] Work Phone: Evaluation note* Diagnosis Elevated alkaline phosphatase level- Primary Other nonspecific abnormal serum enzyme levels [facility] this [facility] Diagnosis Vasovagal symptom- Primary [...] left vertebral artery [facility] Diagnosis Hypothyroidism, unspecified type documented [facility] Diagnosis Flu-like symptoms- Primary Other general symptoms Elevated alkaline phosphatase level Other nonspecific abnormal serum enzyme levels documented [facility] this [facility]* Diagnosis Right ankle swelling- Primary Effusion of ankle and foot joint Encounter for screening for osteoporosis Special screening for osteoporosis Encounter for screening mammogram for malignant neoplasm of breast Other screening mammogram [facility] Diagnosis Near syncope- Primary Syncope and collapse [facility] Diagnosis Concentration deficit Attention or concentration deficit [facility] Diagnosis Dyslipidemia- Primary Other and unspecified hyperlipidemia Hair thinning Alopecia, unspecified Fatigue, unspecified type Tendinitis of right ankle Tenosynovitis of foot and ankle SOB (shortness of breath) Shortness of breath Hypothyroidism, unspecified type Screening for colon cancer Special screening for malignant neoplasms, colon Concentration deficit Attention or concentration deficit Anxiety with depression documented in this encounter [facility] note* Diagnosis SOB (shortness of breath) Shortness of breath documented in this encounter [facility] note* Diagnosis SOB (shortness of breath) Shortness of breath documented in this encounter [facility] note* Diagnosis Dermatitis contact- Primary Hypothyroidism, unspecified type documented in this encounter [facility] note* Diagnosis Elevated ferritin- Primary Other abnormal blood chemistry Rash and nonspecific skin eruption Rash and other nonspecific skin eruption Elevated alkaline phosphatase level Other nonspecific abnormal serum enzyme levels Dermatitis contact Hypothyroidism, unspecified type Dyslipidemia Other and unspecified hyperlipidemia Mood disorder (HCC) Unspecified episodic mood disorder Fatigue, unspecified type Hyperglycemia Other abnormal glucose documented in this encounter [facility] note* Diagnosis Adjustment insomnia- Primary Transient disorder of initiating or maintaining sleep Anxiety with depression 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), and cerebral infarction without residual deficits documented in this encounter [facility] note* Diagnosis Concentration deficit Attention or concentration deficit documented in this encounter [facility] note* Diagnosis Situational insomnia Transient disorder of initiating or maintaining sleep Anxiety with depression documented in this encounter [facility] note* Diagnosis Sore throat- Primary Acute pharyngitis Influenza-like illness Influenza with other respiratory manifestations documented in this encounter [facility] note* Diagnosis Concentration deficit Attention or concentration deficit documented in this encounter [facility] note* Diagnosis Encounter for screening mammogram for breast cancer documented in this encounter [facility] note* Diagnosis Concentration deficit Attention or concentration deficit documented in this encounter [facility] for referral (narrative)* Diagnostic Procedure Only (Routine) - Pending Review Specialty Diagnoses / Procedures Referred By Cassie payne Referred To Contact [facility] Diagnoses Encounter for screening mammogram for breast cancer Procedures MANDO SCREENING SCREENING MAMMOGRAPHY BI 2-VIEW BREAST INC Shin Peguero DO [address] [place] [address] [facility] [address] [place] [address] Referral ID Status Reason Start Date Expiration Date Visits Requested Visits Authorized [id number] Pending Review Auto-Generat ed Referral 11/10/2021 12/10/2022 1 1 [facility] for referral (narrative)* Diagnostic Procedure Only (Routine) - Pending Review Specialty Diagnoses / Procedures Referred By Kiaraac t Referred To Contact US IMAGING Diagnoses Elevated alkaline phosphatase level Procedures US ABD RT UPPER QUADRANT US ABDOMINAL REAL TIME W/IMAGE LIMITED Shin Arias DO [address] [place] [address] [facility] Referral ID Status Reason Start Date Expiration Date Visits Requested Visits Authorized [id number] Pending Review Auto-Generat ed Referral 06/02/2023 1 1 [facility] for referral (narrative)* Diagnostic Procedure Only (Routine) - Closed Specialty Diagnoses / Procedures Referred By Cassie payne Referred To Contact XR IMAGING Diagnoses Right ankle swelling Procedures XR ANKLE GENERAL 3V AP/LAT/OBL RIGHT RADEX ANKLE COMPLETE MINIMUM 3 VIEWS Jossy Gustafson APRN.COUNTY ENGINEER [address] [place] [address] Xr Imaging Referral ID Status Reason Start Date Expiration Date V isits Requested Visits Authorized [id number] Closed Auto-Generate d Referral 06/06/2022 07/06/2023 1 1 * Diagnostic Procedure Only (Routine) - Pending Review Specialty Diagnoses / Procedures Referred By Cassie payne Referred To Contact [facility] Diagnoses Encounter for screening mammogram for malignant neoplasm of breast Procedures MANDO SCREENING SCREENING MAMMOGRAPHY BI 2-VIEW BREAST INC CAD Jossy Gustafson APRN.COUNT[employer] ENGINEER [address] [place] [address] [facility] [address] [place] [address] Referral ID Status Reason Start Date Expiration Date Visits Requested Visits Authorized [id number] Pending Review Auto-Generat ed Referral 06/06/2022 07/06/2023 1 1 [facility] for referral (narrative)* Outpatient Procedure (Routine) - Pending Review Specialty Diagnoses / Procedures [facility] Referred To Contact [facility] Diagnoses Near syncope Procedures STRESS ECHO TREADMILL ECHO TTHRC R-T 2D W/WO M-MODE COMPLETE REST&ST Alivia Leyva PA-C [address] [place] [address] [facility] [address] [address] Referral ID Status Reason Start Date Expiration Date Visits Requested Visits Authorized [id number] Pending Review Auto-Generat ed Referral 05/19/2022 05/19/2023 1 1 [facility] for referral (narrative)* Outpatient Procedure (Routine) - Authorized Specialty Diagnoses / Procedures [facility]erred To [facility] Diagnoses SOB (shortness of breath) Procedures LUNG VOLUMES Shin Arias DO [address] [place] [address] [address] Referral ID Status Reason Start Date Expiration Date Visits Requested Visits Authorized [id number] Authorized Auto-Generat ed Referral 07/19/2022 08/18/2023 1 1 * Outpatient Procedure (Routine) - Authorized Specialty Diagnoses / Procedures [facility] Referred To Contact [facility] [place] Diagnoses SOB (shortness of breath) Procedures SPIROMETRY - BASELINE AND POST DILATOR BRNCDILAT RSPSE SPMTRY PRE&POST-BRNCDILAT ADMN Shin Arias DO [address] [place] [address] [address] Referral ID Status Reason Start Date Expiration Date Visits Requested Visits Authorized [id number] Authorized Auto-Generat ed Referral 07/19/2022 08/18/2023 1 1 [facility] Diagnostic Procedure Only (Routine) - Pending Review Specialty Diagnoses / Procedures Referred By Cassie t Referred To Contact [facility] Diagnoses Encounter for screening mammogram for breast cancer Procedures MANDO SCREENING SCREENING MAMMOGRAPHY BI 2-VIEW BREAST INC CAD Shin Arias DO [address] [place] [address] [facility] [address] [place] [address] Referral ID Status Reason Start Date Expiration Date Visits Requested Visits Authorized [id number] Pending Review Auto-Generat ed Referral 05/17/2023 06/15/2024 1 1 [facility] Summary Purpose Family History Relationship Condition Age at Onset Recorded Date/T claus father Malignant neoplasm Unknown mother Hypertension Unknown grandfather Cardiac disease Unknown sister Malignant neoplasm Unknown Advance Directives Documents on File Type Date 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 Advance Directive(s) Latest Code Status on File Code Status Date Activated Date Inactivated Comments Full Code 09/30/2018 9:26 PM Would like her daughterLeah to be her HCPOA and make decisions on her behalf if she is unable to make them by herself Documents on File Type Date 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 Advance Directive(s) Reason for Referral Specialty Diagnoses / Procedures Referred By Cassie payne Referred To Contact Diagnoses Bilateral foot pain Procedures XR FOOT RIGHT 3 VIEWS [employer], Said KULDEEP Lewis [address] [facility] [facility] [address] [place] [address] Referral ID Status Reason Start Date Expiration Date V isits Requested Visits Authorized [id number] New Request 07/29/2021 08/23/2022 1 1 Specialty Diagnoses / Procedures Referred By Cassie t Referred To Contact Diagnoses Bilateral foot pain Procedures XR FOOT LEFT 3 VIEWS [employer], Said KULDEEP Lewis [address] [address] [place] [address] Referral ID Status Reason Start Date Expiration Date V isits Requested Visits Authorized [id number] New Request 07/29/2021 08/23/2022 1 1 Specialty Diagnoses / Procedures Referred By Cassie t Referred To Contact Ophthalmology Diagnoses Age-related cataract of both eyes, unspecified age-related cataract type Double vision Procedures CONSULT TO OPHTHALMOLOGY OFFICE/OUTPATIENT NEW HIGH MDM 60-74 MINUTES Shin Arias, [address] [place] [address] Referral ID Status Reason Start Date Expiration Date Visits Requested Visits Authorized [id number] Pending Review PCP Requested Referral 01/21/2022 01/21/2023 1 1 Health Concerns Infection Onset Date Last Indicated Resolved Time COVID-19 Confirmed 01/25/2023 01/25/2023 Infection Onset Date Last Indicated Resolved Time COVID-19 Confirmed 01/25/2023 01/25/2023 3 8:51 PM EDT Additional Source Comments INFORMATION SOURCE (unrecogn ized section and content) DATE CREATED AUTHOR 11/02/2017 [facility] [employer] DATE CREATED AUTHOR AUTHOR'S ORGANIZ ATION 08/21/2021 [facility] DATE CREATED AUTHOR AUTHOR'S ORGANIZ ATION 06/12/2023 [facility] DATE CREATED AUTHOR AUTHOR'S ORGANIZ ATION 07/04/2023 [facility] Source Comments (unrecognize d section and content) In the event this informatio n is protected by the Federal Confidentiality of Alcohol and Drug Abuse Patient Records regulations: The Federal rules restrict any use of the information to criminally investigate or prosecute any alcohol or drug abuse patient.[facility] the event this information is protected by the Federal Confidentiality of Alcohol and Drug Abuse Patient Records regulations: The Federal rules restrict any use of the information to criminally investigate or prosecute any alcohol or drug abuse patient.[facility] the event this information is protected by the Federal Confidentiality of Alcohol and Drug Abuse Patient Records regulations: The Federal rules restrict any use of the information to criminally investigate or prosecute any alcohol or drug abuse patient.[facility] the event this information is protected by the Federal Confidentiality of Alcohol and Drug Abuse Patient Records regulations: The Federal rules restrict any use of the information to criminally investigate or prosecute any alcohol or drug abuse patient.[facility] the event this information is protected by the Federal Confidentiality of Alcohol and Drug Abuse Patient Records regulations: The Federal rules restrict any use of the information to criminally investigate or prosecute any alcohol or drug abuse patient.[facility] the event this information is protected by the Federal Confidentiality of Alcohol and Drug Abuse Patient Records regulations: The Federal rules restrict any use of the information to criminally investigate or prosecute any alcohol or drug abuse patient.[facility] the event this information is protected by the Federal Confidentiality of Alcohol and Drug Abuse Patient Records regulations: The Federal rules restrict any use of the information to criminally investigate or prosecute any alcohol or drug abuse patient.[facility] the event this information is protected by the Federal Confidentiality of Alcohol and Drug Abuse Patient Records regulations: The Federal rules restrict any use of the information to criminally investigate or prosecute any alcohol or drug abuse patient.[facility] the event this information is protected by the Federal Confidentiality of Alcohol and Drug Abuse Patient Records regulations: The Federal rules restrict any use of the information to criminally investigate or prosecute any alcohol or drug abuse patient.[facility] the event this information is protected by the Federal Confidentiality of Alcohol and Drug Abuse Patient Records regulations: The Federal rules restrict any use of the information to criminally investigate or prosecute any alcohol or drug abuse patient.[facility] the event this information is protected by the Federal Confidentiality of Alcohol and Drug Abuse Patient Records regulations: The Federal rules restrict any use of the information to criminally investigate or prosecute any alcohol or drug abuse patient.[facility] the event this information is protected by the Federal Confidentiality of Alcohol and Drug Abuse Patient Records regulations: The Federal rules restrict any use of the information to criminally investigate or prosecute any alcohol or drug abuse patient.[facility] the event this information is protected by the Federal Confidentiality of Alcohol and Drug Abuse Patient Records regulations: The Federal rules restrict any use of the information to criminally investigate or prosecute any alcohol or drug abuse patient.[facility] the event this information is protected by the Federal Confidentiality of Alcohol and Drug Abuse Patient Records regulations: The Federal rules restrict any use of the information to criminally investigate or prosecute any alcohol or drug abuse patient.[facility] HospitalIn the event this information is protected by the Federal Confidentiality of Alcohol and Drug Abuse Patient Records regulations: The Federal rules restrict any use of the information to criminally investigate or prosecute any alcohol or drug abuse patient.[facility] HospitalIn the event this information is protected by the Federal Confidentiality of Alcohol and Drug Abuse Patient Records regulations: The Federal rules restrict any use of the information to criminally investigate or prosecute any alcohol or drug abuse patient.[facility] HospitalIn the event this information is protected by the Federal Confidentiality of Alcohol and Drug Abuse Patient Records regulations: The Federal rules restrict any use of the information to criminally investigate or prosecute any alcohol or drug abuse patient.[facility]In the event this information is protected by the Federal Confidentiality of Alcohol and Drug Abuse Patient Records regulations: The Federal rules restrict any use of the information to criminally investigate or prosecute any alcohol or drug abuse patient.[facility] HospitalIn the event this information is protected by the Federal Confidentiality of Alcohol and Drug Abuse Patient Records regulations: The Federal rules restrict any use of the information to criminally investigate or prosecute any alcohol or drug abuse patient.[facility] HospitalIn the event this information is protected by the Federal Confidentiality of Alcohol and Drug Abuse Patient Records regulations: The Federal rules restrict any use of the information to criminally investigate or prosecute any alcohol or drug abuse patient.[facility] HospitalIn the event this information is protected by the Federal Confidentiality of Alcohol and Drug Abuse Patient Records regulations: The Federal rules restrict any use of the information to criminally investigate or prosecute any alcohol or drug abuse patient.[facility] HospitalIn the event this information is protected by the Federal Confidentiality of Alcohol and Drug Abuse Patient Records regulations: The Federal rules restrict any use of the information to criminally investigate or prosecute any alcohol or drug abuse patient.[facility] HospitalIn the event this information is protected by the Federal Confidentiality of Alcohol and Drug Abuse Patient Records regulations: The Federal rules restrict any use of the information to criminally investigate or prosecute any alcohol or drug abuse patient.[facility] HospitalIn the event this information is protected by the Federal Confidentiality of Alcohol and Drug Abuse Patient Records regulations: The Federal rules restrict any use of the information to criminally investigate or prosecute any alcohol or drug abuse patient.[facility] HospitalIn the event this information is protected by the Federal Confidentiality of Alcohol and Drug Abuse Patient Records regulations: The Federal rules restrict any use of the information to criminally investigate or prosecute any alcohol or drug abuse patient.[facility] HospitalIn the event this information is protected by the Federal Confidentiality of Alcohol and Drug Abuse Patient Records regulations: The Federal rules restrict any use of the information to criminally investigate or prosecute any alcohol or drug abuse patient.[facility] HospitalIn the event this information is protected by the Federal Confidentiality of Alcohol and Drug Abuse Patient Records regulations: The Federal rules restrict any use of the information to criminally investigate or prosecute any alcohol or drug abuse patient.[facility] HospitalIn the event this information is protected by the Federal Confidentiality of Alcohol and Drug Abuse Patient Records regulations: The Federal rules restrict any use of the information to criminally investigate or prosecute any alcohol or drug abuse patient.[facility] HospitalIn the event this information is protected by the Federal Confidentiality of Alcohol and Drug Abuse Patient Records regulations: The Federal rules restrict any use of the information to criminally investigate or prosecute any alcohol or drug abuse patient.[facility] HospitalIn the event this information is protected by the Federal Confidentiality of Alcohol and Drug Abuse Patient Records regulations: The Federal rules restrict any use of the information to criminally investigate or prosecute any alcohol or drug abuse patient.[facility] HospitalIn the event this information is protected by the Federal Confidentiality of Alcohol and Drug Abuse Patient Records regulations: The Federal rules restrict any use of the information to criminally investigate or prosecute any alcohol or drug abuse patient.[facility] HospitalIn the event this information is protected by the Federal Confidentiality of Alcohol and Drug Abuse Patient Records regulations: The Federal rules restrict any use of the information to criminally investigate or prosecute any alcohol or drug abuse patient.[facility] HospitalIn the event this information is protected by the Federal Confidentiality of Alcohol and Drug Abuse Patient Records regulations: The Federal rules restrict any use of the information to criminally investigate or prosecute any alcohol or drug abuse patient.[facility] HospitalIn the event this information is protected by the Federal Confidentiality of Alcohol and Drug Abuse Patient Records regulations: The Federal rules restrict any use of the information to criminally investigate or prosecute any alcohol or drug abuse patient.[facility] HospitalIn the event this information is protected by the Federal Confidentiality of Alcohol and Drug Abuse Patient Records regulations: The Federal rules restrict any use of the information to criminally investigate or prosecute any alcohol or drug abuse patient.[facility] HospitalIn the event this information is protected by the Federal Confidentiality of Alcohol and Drug Abuse Patient Records regulations: The Federal rules restrict any use of the information to criminally investigate or prosecute any alcohol or drug abuse patient.[facility] HospitalIn the event this information is protected by the Federal Confidentiality of Alcohol and Drug Abuse Patient Records regulations: The Federal rules restrict any use of the information to criminally investigate or prosecute any alcohol or drug abuse patient.[facility] HospitalIn the event this information is protected by the Federal Confidentiality of Alcohol and Drug Abuse Patient Records regulations: The Federal rules restrict any use of the information to criminally investigate or prosecute any alcohol or drug abuse patient.[facility] HospitalIn the event this information is protected by the Federal Confidentiality of Alcohol and Drug Abuse Patient Records regulations: The Federal rules restrict any use of the information to criminally investigate or prosecute any alcohol or drug abuse patient.[facility] HospitalIn the event this information is protected by the Federal Confidentiality of Alcohol and Drug Abuse Patient Records regulations: The Federal rules restrict any use of the information to criminally investigate or prosecute any alcohol or drug abuse patient.[facility] HospitalIn the event this information is protected by the Federal Confidentiality of Alcohol and Drug Abuse Patient Records regulations: The Federal rules restrict any use of the information to criminally investigate or prosecute any alcohol or drug abuse patient.[facility] HospitalIn the event this information is protected by the Federal Confidentiality of Alcohol and Drug Abuse Patient Records regulations: The Federal rules restrict any use of the information to criminally investigate or prosecute any alcohol or drug abuse patient.[facility] HospitalIn the event this information is protected by the Federal Confidentiality of Alcohol and Drug Abuse Patient Records regulations: The Federal rules restrict any use of the information to criminally investigate or prosecute any alcohol or drug abuse patient.[facility] HospitalIn the event this information is protected by the Federal Confidentiality of Alcohol and Drug Abuse Patient Records regulations: The Federal rules restrict any use of the information to criminally investigate or prosecute any alcohol or drug abuse patient.[facility] HospitalIn the event this information is protected by the Federal Confidentiality of Alcohol and Drug Abuse Patient Records regulations: The Federal rules restrict any use of the information to criminally investigate or prosecute any alcohol or drug abuse patient.[facility] Care Teams (unrecognized sec tion and content) Marketing Director Assisted Living Relationship Specialty Start Date End Date Shin Arias DO [address] [place] [address] PCP - General Family Practice 10/28/14 Marketing Director Assisted Living Relationship Specialty Start Date End Date Shin Arias DO PCP - General Family Medicine 10/03/18 Marketing Director Assisted Living Relationship Specialty Start Date End Date Shin Arias, DO [address] [place] [address] PCP - General Family Practice 10/28/14 Marketing Director Assisted Living Relationship Specialty Start Date End Date Shin Arias DO [address] [place] [address] PCP - General Family Practice 10/28/14 Marketing Director Assisted Living Relationship Specialty Start Date End Date Shin Arias, DO [address] [place] [address] PCP - General Family Practice 10/28/14 Marketing Director Assisted Living Relationship Specialty Start Date End Date Shin Arias, DO [address] [place] [address] PCP - General Family Practice 10/28/14 Marketing Director Assisted Living Relationship Specialty Start Date End Date Arias, Shin L, DO [address] [place] [address] PCP - General Family Practice 10/28/14 Marketing Director Assisted Living Relationship Specialty Start Date End Date Shin Arias, DO [address] [place] [address] PCP - General Family Practice 10/28/14 Marketing Director Assisted Living Relationship Specialty Start Date End Date Shin Arias, DO [address] [place] [address] PCP - General Family Practice 10/28/14 Marketing Director Assisted Living Relationship Specialty Start Date End Date Shin Arias, DO [address] [place] [address] PCP - General Family Medicine 10/28/14 Marketing Director Assisted Living Relationship Specialty Start Date End Date Shin Arias, DO [address] [place] [address] PCP - General Family Medicine 10/28/14 Marketing Director Assisted Living Relationship Specialty Start Date End Date Shin Arias, DO [address] [place] [address] PCP - General Family Medicine 10/28/14 Marketing Director Assisted Living Relationship Specialty Start Date End Date Shin Arias, DO [address] [place] [address] PCP - General Family Medicine 10/28/14 Marketing Director Assisted Living Relationship Specialty Start Date End Date Shin Arias, DO [address] [place] [address] PCP - General Family Medicine 10/28/14 Marketing Director Assisted Living Relationship Specialty Start Date End Date Shin Arias, DO [address] [place] [address] PCP - General Family Medicine 10/28/14 Marketing Director Assisted Living Relationship Specialty Start Date End Date Shin Arias, DO [address] [place] [address] PCP - General Family Medicine 10/28/14 Marketing Director Assisted Living Relationship Specialty Start Date End Date Shin Arias, DO [address] [place] [address] PCP - General Family Medicine 10/28/14 Marketing Director Assisted Living Relationship Specialty Start Date End Date Shin Arias, DO [address] [place] [address] PCP - General Family Medicine 10/28/14 Marketing Director Assisted Living Relationship Specialty Start Date End Date Shin Arias, DO [address] [place] [address] PCP - General Family Medicine 10/28/14 Marketing Director Assisted Living Relationship Specialty Start Date End Date Shin Arias, DO [address] [place] [address] PCP - General Family Medicine 10/28/14 Marketing Director Assisted Living Relationship Specialty Start Date End Date Shin Arias, DO [address] [place] [address] PCP - General Family Medicine 10/28/14 Marketing Director Assisted Living Relationship Specialty Start Date End Date Shin Arias, DO [address] [place] [address] PCP - General Family Medicine 10/28/14 Marketing Director Assisted Living Relationship Specialty Start Date End Date Shin Arias, DO [address] [place] [address] PCP - General Family Medicine 10/28/14 Marketing Director Assisted Living Relationship Specialty Start Date End Date Shin Arias, DO [address] [place] [address] PCP - General Family Medicine 10/28/14 Marketing Director Assisted Living Relationship Specialty Start Date End Date Shin Arias, [address] [place] [address] PCP - General Family Medicine 10/28/14 Marketing Director Assisted Living Relationship Specialty Start Date End Date Shin Arias, [address] [place] [address] PCP - General Family Medicine 10/28/14 Marketing Director Assisted Living Relationship Specialty Start Date End Date Shin Arias, [address] [place] [address] PCP - General Family Medicine 10/28/14 Marketing Director Assisted Living Relationship Specialty Start Date End Date Shin Arias DO [address] [place] [address] PCP - General Family Medicine 10/28/14 Marketing Director Assisted Living Relationship Specialty Start Date End Date Shin Arias DO [address] [place] [address] PCP - General Family Medicine 10/28/14 Marketing Director Assisted Living Relationship Specialty Start Date End Date Shin Arias DO [address] [place] [address] PCP - General Family Medicine 10/28/14 Marketing Director Assisted Living Relationship Specialty Start Date End Date Shin Arias DO [address] [place] [address] PCP - General Family Medicine 10/28/14 Marketing Director Assisted Living Relationship Specialty Start Date End Date Shin Arias, [address] [place] [address] PCP - General Family Medicine 10/28/14 Marketing Director Assisted Living Relationship Specialty Start Date End Date Shin Arias DO [address] [place], [place] [address] PCP - General Family Medicine 10/28/14 Marketing Director Assisted Living Relationship Specialty Start Date End Date Shin Arias DO [address] [place] [address] PCP - General Family Medicine 10/28/14 Reason [...] right Acquired deformity of right foot Shin Arias DO [address] [place] [address] Kirsty, Bairon Lewis, DPM [address] [facility] [address] [place] [address] Referral ID Status Reason Start Date Expiration Date V isits Requested Visits Authorized [id number] New Request 07/22/2021 08/16/2022 1 1 Reason [...] RSPSE SPMTRY PRE&POST-BRNCDILAT ADMN Shin Arias, DO [address] [place] [address] [facility] [place] [address] [place], [place] [id number] Referral ID Status Reason Start Date Expiration Date V isits Requested Visits Authorized [id number] Closed Auto-Generate d Referral 07/19/2022 08/18/2023 1 1 Specialty Diagnoses / [facility] To Contact [facility] Diagnoses SOB (shortness of breath) Procedures LUNG VOLUMES Shin Arias, DO [address] [place] [address] [address] Referral ID Status Reason Start Date Expiration Date V isits Requested Visits Authorized [id number] Closed Auto-Generate d Referral 07/19/2022 08/18/2023 1 [...] Reason Onset Date Comments Refill Request 04/11/2023 Reason Onset Date Comments Refill Request 09/30/2022 Goals (unrecognized section and content) Goals may [...] BE BASED ON THE PRIMARY CLINICAL RECORDS. [facility] [employer] [facility]. provides no warranty or guarantee of the accuracy or completeness of information in this document.
== END 2023-08-22 13:47 | disposition home or self-care (01) ==
LOC: EC 13:46
PROVIDERS: Visit Provider Podiatrist Foot & Ankle Surgery
DX: M20.11 Hallux valgus (acquired), right foot (principal); Z98.890 Other specified postprocedural states
CPT/HCPCS: 73630

== ENCOUNTER 2023-09-12 11:21 | Outpatient (OUT) | payer MEDICARE, SELFPAY ==
--- NOTE | 2023-09-12 | XR_ITS ---
The [address] [address] Patient Name: HENRY BROCK MRN: [id number] date: 1955 Sex: F Assigned Patient Location: Current Patient Location: Accession/Order Number: [id number] Exam Date: 09/12/2023 11:25 Report Date: 09/12/2023 11:57 At the request of: SIERRA AUGUSTINE Procedure: XR foot RT min 3V PROCEDURE: XR foot RT min 3V COMPARISON: 08/22/2023 HISTORY: RIGHT FOOT PAIN FINDINGS: BONES:Stable fusion first metatarsal-phalangeal joint with a dorsal plate and multiple screws. Remote osteotomy and screw placement at of the second metatarsal. Permeative pattern of the bones suggests osteopenia, increased. No acute fracture, dislocation or mechanical failure SOFT TISSUES:Negative. No visible soft tissue swelling. EFFUSION:None visible. OTHER: Negative. XR/XR foot RT min 3V IMPRESSION: Stable postsurgical changes Increased permeative pattern suggesting osteopenia Electronically authenticated by: JG RUTLEDGE Date: 09/12/2023 11:57
== END 2023-09-12 11:22 | disposition home or self-care (01) ==
LOC: EC 11:21
PROVIDERS: Visit Provider Podiatrist Foot & Ankle Surgery
DX: M79.671 Pain in right foot (principal); Z98.890 Other specified postprocedural states
CPT/HCPCS: 73630

== ENCOUNTER 2023-10-03 11:26 | Outpatient (OUT) | payer MEDICARE, SELFPAY ==
--- NOTE | 2023-10-03 | XR_ITS ---
The [address] [address] Patient Name: HENRY BROCK MRN: [id number] date: 1955 Sex: F Assigned Patient Location: Current Patient Location: Accession/Order Number: [id number] Exam Date: 10/03/2023 11:26 Report Date: 10/04/2023 06:34 At the request of: SIERRA AUGUSTINE Procedure: XR foot RT min 3V PROCEDURE: XR foot RT min 3V HISTORY: RIGHT FOOT PAIN COMPARISON: XR foot right 09/12/2023 FINDINGS: BONES:Mechanical fusion of first metatarsophalangeal joint via dorsal plate and screws. Single screw within head of second metatarsal. Suspect prior resection of distal articular surface of second proximal phalanx. SOFT TISSUES:No visible soft tissue swelling. EFFUSION:None visible. OTHER: Negative. XR/XR foot RT min 3V IMPRESSION: 1. Stable surgical changes without evidence of hardware failure or change in alignment. 2. No appreciable acute abnormality. Electronically authenticated by: DARBY PIERCE Date: 10/04/2023 06:34
== END 2023-10-03 11:27 | disposition home or self-care (01) ==
LOC: EC 11:26
PROVIDERS: Visit Provider Podiatrist Foot & Ankle Surgery
DX: M79.671 Pain in right foot (principal); Z98.890 Other specified postprocedural states
CPT/HCPCS: 73630

== ENCOUNTER 2024-01-23 11:21 | Outpatient (OUT) | payer MEDICARE, SELFPAY ==
--- NOTE | 2024-01-23 | XR_ITS ---
The [address] [address] Patient Name: HENRY BROCK MRN: [id number] date: 1955 Sex: F Assigned Patient Location: Current Patient Location: Accession/Order Number: [id number] Exam Date: 01/23/2024 11:39 Report Date: 01/24/2024 10:27 At the request of: SIERRA AUGUSTINE Procedure: XR foot RT min 3V PROCEDURE: XR foot RT min 3V HISTORY: RIGHT FOOT PAIN COMPARISON: XR foot right 10/03/2023 FINDINGS: BONES:Mechanical fusion the first metatarsophalangeal joint via dorsal plate and screws; no appreciable hardware fracture loosening. Single screw within head of second metatarsal. Prior resection of distal articular surface of the second toe proximal phalanx.. SOFT TISSUES:No visible soft tissue swelling. EFFUSION:None visible. OTHER: Negative. XR/XR foot RT min 3V IMPRESSION: 1. Stable surgical changes without evidence of hardware failure or change in alignment. Electronically authenticated by: DARBY PIERCE Date: 01/24/2024 10:27
--- OUTSIDE RECORDS SUMMARY | 2024-01-23 11:31 | XMS_ITS | CCD ---
Author Organization [facility] Inform ion Partnership [facility] Care Team Providers Care Moulder Operator Name Role Phone SHIN SCHWARTZ Unavailable Unavailable IMCA Unavailable Unavailable ARIAS, SHIN L Unavailable Unavailable Arias Shin NORMAN Primary Care Provider Arias Shin NORMAN Primary Care Provider ATWAY, SAID A Referring Unavailable ARIASSHIN Primary Care Unavailable ATWAY, SAID A Attending Unavailable ATWAY, SAID A Attending Unavailable SELF, SELF Referring Unavailable SHIN ARIAS Primary Care Unavailable ARIASSHIN Primary Care Unavailable ATWAY, SAID A Referring Unavailable ARIASSHIN Primary Care Unavailable ATWAY, SAID A Attending Unavailable Arias Shin NORMAN Primary Care Provider Arias DOShin Primary Care Provider Arias DO Shin Linda Primary Care Provider Arias Shin NORMAN Primary Care Provider SHIN ARIAS L Primary Care Unavailable Alivia LEYVA Attending Unavailable ARIAS, SHIN L Primary Care Unavailable Alivia LEYVA Attending Unavailable ARIAS, SHIN L Primary Care Unavailable ARIAS, SHIN L Primary Care Unavailable ARIAS, SHIN L Attending Unavailable ARIAS, SHIN L Referring Unavailable ARIAS, SHIN L Primary Care Unavailable ARIAS, SHIN L Primary Care Unavailable ARIAS, SHIN L Attending Unavailable ARIAS, SHIN L Attending Unavailable ARIAS, SHIN L Primary Care Unavailable Arias, Shin Primary Care Unavailable Arias, Shin Attending Unavailable Arias, Shin Referring Unavailable Arias, Shin Primary Care Unavailable LAURYN HARE Attending Unavailable LAURYN HARE Referring Unavailable LAURYN HARE Attending Unavailable LAURYN HARE Referring Unavailable Shin Arias Primary Care Unavailable Shin Arias Primary Care Unavailable Shilo August Attending Unavailable Allergies Allergy Classification Reported Allergen(s) Allergy Type Date of Onset Reaction(s) Facility (20 sources) morphine; Translations: [MORPHINE SULFATE] Drug Allergy 5 Itching [facility] Repository (20 sources) sulfamethoxazole; Translations: [SULFAMETHOXAZOLE ] Drug Allergy 5 Hives [facility] Repository (20 sources) tea tree oil; Translations: [TEA TREE OIL] Drug Allergy 0 Rash [facility] Repository (2 sources) Morphine Drug Allergy 5 Itching [facility] (1 source) Trimethoprim Drug Allergy 0 unknown [facility] Work Phone: (1 source) tea tree Allergy to substance 0 unknown [facility] Work Phone: (1 source) Morphine Drug Allergy 0 [facility] Repository (1 source) Trimethoprim Drug Allergy 0 [facility] Repository (1 source) tea tree Drug allergy (disorder) 0 [facility] Repository Medications Current Medications Medication Drug Class(es) Dates Sig (Normalized) Sig (Original) amphetamine aspartate 2.5 mg / amphetamine sulfate 2.5 mg / dextroamphetamine saccharate 2.5 mg / dextroamphetamine sulfate 2.5 mg oral tablet (20 sources) Central Nervous System Stimulant Start: 05-18-2023 End: 02-01-2024 take 1 tablet by mouth once daily dextroamphetamine- amphetamine (ADDERALL) 10 mg tablet Indications: Concentration deficit Take 0.5-1 tablets by mouth once daily for 30 days. 30 tablet 01/02/2024 02/01/2024 Active Start: 02-20-2023 End: 05-12-2023 take 1 [...] y mouth once daily for 90 days. ascorbic acid 500 mg oral tablet (20 sources) Vitamin C Start: 08-16-19 take 1 tablet by mouth three times daily ascorbic acid, vitamin C, (VITAMIN C) 500 mg tablet Take 1 tablet by mouth three times daily. 270 tablet 3 08/15/2017 Active Comment on above: [facility]. Ca-D3-Mag Gv-Euwk-Hlu-Ravi-Bor (Calcium 600-D3 Plus (Mag-Zinc)) 600 mg calcium- 800 unit-50 mg tablet (1 source) Start: 04-01-20 20 Ca-D3-Mag Di-Vclh-Kus-Ravi-Bor (Calcium 600-D3 Plus (Mag-Zinc)) 600 mg calcium- 800 unit-50 mg tablet Active TABLET PO April 01, 2020 12:00am calcium ascorbate 500 mg oral tablet (1 source) Start: 04-01-20 take 500 mg by mouth once daily Ascorbate Calcium (Vitamin C) Active 500 MG PO DAILY April 01, 2020 12:00am cholecalciferol 0.125 mg oral capsule (20 sources) Vitamin D Start: 04-01-20 take 10 ug by mouth once daily Cholecalciferol (Vitamin D3) Active 10 MCG PO DAILY April 01, 2020 12:00am Start: 08-15-2017 End: 10-23-2023 take 1 capsule by mouth once daily Cholecalciferol, Vitamin D3, 125 mcg (5,000 unit) cap Take 1 capsule by mouth once daily. 90 capsule 3 10/23/2023 Active Comment on above: Take 1 capsule by mo [facility] once daily. CPAP (20 sources) Start: 05-14-2020 CPAP Indications: HERNAN (obstructive sleep apnea) Initiate CPAP @ 6 cm of water with humidification. Mask (per patient preference) optional chin strap (if indicated) , filters, tubing, humidifier and lifetime supplies. 1 Device 05/14/2020 Active Start: 05-14-2020 CPAP Indicatio ns: HERNAN (obstructive sleep apnea) Initiate CPAP @ [...] oral tablet (20 sources) Muscle Relaxant Start: 018 End: 023 take 1 tablet by mouth three times daily as needed for muscle spasms cyclobenzaprine (FLEXERIL) 10 mg tablet Indications: Fall, initial encounter Take 1 tablet by mouth three times daily as needed for Muscle Spasm. 30 tablet 08/15/2017 Active Comment on above: Take 1 tablet by [facility] three times daily as needed for Muscle Spasm. docusate sodium 100 mg oral capsule (1 source) Start: 019 take 1 capsule by mouth twice daily docusate 100 MG Cap Take 1 capsule by mouth 2 times daily. 0 10/04/2018 Active FLUoxetine 10 mg oral capsule (20 sources) Serotonin Reuptake Inhibitor Start: 023 take 1 capsule by mouth once daily FLUoxetine (PROZAC) 10 mg capsule Indications: Adjustment insomnia , Anxiety with depression Take 1 capsule by mouth once daily. 90 capsule 1 02/08/2023 Active Start: 11-25-2022 take [address] [facility] once daily FLUoxetine (PROZAC) 10 mg capsule [...] Comment on above: Take [address] [facility] once daily. 1 ml heparin sodium, porcine 5000 unt/ml prefilled syringe (1 source) Unfractionated Heparin, Anti-coagulant Start: 9 heparin 5000 UNIT/ML Solution Indications: DVT/PE prophylaxis Inject 1 mL under the skin 3 times daily (at 8am, 4 pm and 10pm). 0 10/03/2018 Active L-LYSINE ORAL (20 sources) take 1 capsule by mouth once daily L-LYSINE ORAL Take 1 capsule by mouth once daily. Active take 1 capsule by mouth once eryn ly L-LYSINE ORAL Take 1 capsule by mouth once daily. 0 Active Comment on above: Take [address] [facility] once daily. lisinopril 5 mg oral tablet (1 source) [...] not take in conjunction with other NSAIDs. mometasone furoate 0.001 mg/mg topical ointment (18 sources) Corticosteroid Start: 10-06-19 mometasone (ELOCON) 0.1 % ointment Indications: Rash and nonspecific skin eruption Apply to affected area once daily as needed. Once daily as needed on rash 15 g 2 10/05/2022 Active Comment on above: Apply to affected ar ea once daily as needed. Once daily as needed on rash Multivitamin With Minerals (Hair,Skin And Nails) tablet (1 source) Start: 04-01-20 take 1 tablet by mouth once daily Multivitamin With Minerals (Hair,Skin And Nails) tablet Active 1 TABLET PO DAILY April 01, 2020 12:00am mupirocin 0.02 mg/mg topical ointment (18 sources) RNA Synthetase Inhibitor Antibacterial Start: 10-06-19 23 mupirocin (BACTROBAN) 2 % ointment Indications: Rash and nonspecific skin eruption Apply to affected area twice daily as needed (skin infection). 30 g 10/05/2022 Active Comment on above: Apply to affected ar ea twice daily as needed (skin infection). omega 5-gau-zab-fish oil (FISH OIL) 100-160-1,000 mg cap (20 sources) omega 3-dha-epa- fish oil (FISH OIL) 100-160-1,000 mg cap Take 1 capsule by mouth. Active omega 3-dha-epa- fish oil (FISH OIL) 100-160-1,000 mg cap Take 1 capsule by mouth. 0 Active Comment on above: Take 1 capsule by mo [facility]. perflutren lipid microspheres 1.3 mL in NaCl (PF) 0.9% 10 mL injection (DEFINITY) (20 sources) Start: 05-19-2022 End: 08-18-2023 perflutren lipid microspheres 1.3 mL in NaCl (PF) 0.9% 10 mL injection (DEFINITY) PROPYLENE GLYCOL/PEG 400 (BLINK TEARS LUBRICATING) Eye Drops (20 sources) take 1 drop(s) into the eye(s) four times daily PROPYLENE GLYCOL/PEG 400 (BLINK TEARS LUBRICATING) Eye Drops Use 1 Drop in both eyes four times daily. Active take 1 drop(s) into the eye(s) four times daily PROPYLENE GLYCOL/PEG 400 (BLINK TEARS LUBRICATING) Eye Drops Use 1 Drop in both eyes four times daily. 0 Active Comment on above: Use 1 Drop in both e yes four times daily. selenium 200 mcg cap (20 sources) selenium 200 mcg cap Take by mouth. Active selenium 200 mcg cap Take by mouth. 0 Active Comment on above: Take by mouth. sennosides, intermediate 8.6 mg oral tablet (1 source) Start: 10-04-2018 take 1 tablet by mouth once daily in the morning senna 8.6 MG Tab Take 1 tablet by mouth daily every morning. 0 10/04/2018 Active 125 ml sodium chloride 9 mg/ml prefilled syringe (20 sources) Start: 05-19-2022 End: 08-18-2023 sodium chloride 0.9 % (flush) 10 mL (BD POSIFLUSH) thyroid (intermediate) 60 mg oral tablet (20 sources) Start: 07-14-2023 take 1 tablet by mouth once daily ARMOUR THYROID 60 mg tablet Indications: Hypothyroidism, unspecified type Take 1 tablet by mouth once daily. 90 tablet 1 07/14/2023 Active Start: 05-03-2023 take 1 tablet by [facility] once daily ARMOUR THYROID 60 mg tablet [...] take 1 tablet by mouth once daily CLIFTON THYROID 90 mg tablet Take 1 tablet [...] TO 2 TABLETS AT BEDTIME FOR SLEEP Turmeric extract (1 source) Start: 04-01-2020 Turmeric Active MG PO April 01, 2020 12:00am Vitamin B Complex (20 sources) take 1 tablet by mouth once daily vitamin B complex (B COMPLEX ORAL) Take 1 tablet by mouth once daily. Active take 1 tablet by mouth once shazia y vitamin B complex (B COMPLEX ORAL) Take 1 tablet by mouth once daily. 0 Active Comment on above: Take 1 tablet by [facility] once daily. Zinc Sulfate (20 sources) zinc sulfate (ZI NC-15 ORAL) Take by mouth. Active zinc sulfate (ZI NC-15 ORAL) Take by mouth. 0 Active Comment on above: Take by mouth. Completed/Discontinued Medications Medication Drug Class(es) Dates Sig (Normalized) Sig (Original) aspirin 325 mg oral tablet (20 sources) [...] 1 dose. Take 1 tablet by [facility] once daily. atorvastatin 80 mg oral tablet (2 sources) HMG-CoA Reductase Inhibitor Start: 9 End: 9 take 80 mg by mouth at bedtime Atorvastatin Discontinued 80 MG PO AT BEDTIME October 10, 2018 11:00pm November 22, 2018 3:24pm Start: 10-03-2018 take 1 tablet by [facility] at bedtime atorvastatin 40 MG Tab tablet Take 1 tablet by mouth at bedtime. 0 10/03/2018 Active cephalexin 500 mg oral capsule (1 source) Cephalosporin Antibacterial Start: 10-23-2019 End: 04-01-2020 take 500 mg by mouth four times daily Cephalexin Discontinued 500 MG PO 4 TIMES DAILY October 22, 2019 11:00pm April 01, 2020 9:49am dexmethylphenidate hydrochloride 5 mg oral tablet (17 sources) Central Nervous System Stimulant Start: 01-23-2021 End: 10-22-2021 take 1 tablet by mouth twice daily dexmethylphenidate HCl (FOCALIN) 5 mg tablet Indications: Concentration deficit Take 1 tablet by mouth twice daily for 14 days. 28 tablet 0 10/08/2021 10/22/2021 Discontinued Comment on above: Take 1 tablet by [facility] twice daily for 30 days. Take 1 tablet by [facility] twice daily for 14 days. Take 1 tablet by [facility] twice daily for 30 days. Do not start before January 23, 2021. diazePAM 2 mg oral tablet (1 source) Benzodiazepine Start: 09-29-2018 End: 10-02-2018 take 2 mg by mouth three times daily Diazepam Discontinued 2 MG PO THREE TIMES A DAY 10 3 September 28, 2018 11:00pm October 01, 2018 11:06pm hydrOXYzine hydrochloride 25 mg oral tablet (4 sources) Antihistamine Start: 08-10-2022 End: 11-25-2022 take 0.5-1 tablets by mouth four times daily as needed hydrOXYzine HCl (ATARAX) 25 mg tablet Indications: Dermatitis contact Take 0.5-1 tablets by mouth four times daily as needed for itching/rash. 20 tablet 0 08/10/2022 11/25/2022 Discontinued (Course of therapy completed) Comment on above: Take 0.5-1 tablets b y mouth four times daily as needed for itching/rash. ondansetron 4 mg disintegrating oral tablet (3 sources) Serotonin-3 Receptor Antagonist Start: 10-03-2018 End: 10-11-2018 take 4 mg by mouth every six hours as needed Ondansetron Discontinued 4 MG PO EVERY 6 HOURS NEEDED October 03, 2018 8:27pm October 11, 2018 8:58am Start: 10-03-2018 take 1 tablet by [facility] every six hours as needed ondansetron 4 [...] by [facility] once daily. With food triamcinolone acetonide 5 mg/ml topical cream (20 [...] For rash/itching. Apply sparingly. Avoid face/skin fold. Problems Active Problems Problem Classification Problem Date [...] Translations: [Reaction to severe stress, unspecified] Onset: 09-19-2008 Resolved: 11-30-2015 02-28-2017 Chronic Allergic reactions (2 sources) Contact dermatitis; Translations: [Unspecified contact dermatitis, unspecified cause] Episodic Anxiety disorders (20 sources) Anxiety; Translations: [Anxiety disorder, unspecified] Onset: 12-12-2006 Resolved: 09-19-2008 12-27-2012 Chronic Cataract (20 sources) Bilateral age-related cataract; Translations: [Unspecified age-related cataract] Onset: 01-21-2022 Chronic Complications of surgical procedures or medical care (1 source) Pseudarthrosis after fusion or arthrodesis; Translations: [Pseudarthrosis after fusion or arthrodesis] Onset: 10-18-2023 Episodic Conditions associated with dizziness or vertigo (2 [...] Onset: 09-21-2020 09-21-2020 Chronic Heart valve disorders (8 sources) Tricuspid valve regurgitation; Translations: [Rheumatic tricuspid [...] (20 sources) Depressive disorder; Translations: [Depression] Onset: 09-27-2006 Resolved: 09-19-2008 02-08-2013 Chronic Nutritional deficiencies (20 sources) Vitamin D deficiency; Translations: [Vitamin D deficiency, unspecified] Onset: 10-30-2013 10-30-2013 Chronic Occlusion or stenosis of precerebral arteries (20 sources) Bilateral stenosis of vertebral arteries; Translations: [Occlusion and stenosis of bilateral vertebral arteries] Onset: 10-30-2018 Resolved: 12-16-2023 10-30-2018 Chronic Open wounds of extremities (1 source) Laceration of right elbow; Translations: [Laceration without foreign body of right elbow, initial encounter] Episodic Osteoarthritis (20 sources) Osteoarthritis; Translations: [Unspecified osteoarthritis, unspecified site] Onset: 11-08-2010 08-08-2011 Chronic Other bone disease and musculoskeletal deformities (1 source) Other specified disorders of bone density and structure, multiple sites; Translations: [Other specified disorders of bone density and structure, multiple sites] Onset: 11-26-2023 Episodic Other congenital anomalies (20 sources) Metatarsus primus [...] levels of other serum enzymes] Episodic Other nervous system disorders (20 sources) Disturbance of attention; Translations: [Attention and concentration deficit] Onset: 02-28-2017 02-28-2017 Chronic Other nervous system disorders (1 source) Attention and concentration deficit; Translations: [Concentration deficit] Onset: 02-28-2017 Chronic Other nervous system disorders (1 source) Abnormal gait; Translations: [Unspecified abnormalities of gait and mobility] 10-23-2023 Episodic Other nervous system disorders (1 source) Unspecified abnormalities of gait and mobility; Translations: [Gait disorder] Onset: 10-21-2023 Episodic Other non-traumatic joint disorders (1 source) [...] 05-23-2014 Chronic Residual codes; unclassified (1 source) Obstructive sleep apnea (adult) (pediatric); Translations: [HERNAN (obstructive sleep apnea)] Onset: 05-23-2014 Chronic Residual codes; unclassified (1 source) Influenza-like symptoms; Translations: [Other general symptoms and signs] Episodic Residual codes; unclassified (5 sources) History of operative procedure on foot; Translations: [Other specified postprocedural states] Onset: 10-23-2023 10-23-2023 Episodic Residual codes; unclassified (1 source) Other specified postprocedural states; Translations: [S/P foot surgery, right] Onset: 10-23-2023 Episodic Spondylosis; intervertebral disc disorders; other back [...] Problem Classification Problem Date Documented Date Episodic/Chronic Blindness and vision defects (20 sources) Diplopia; [...] 09-16-2015 Episodic Other and unspecified benign neoplasm (13 sources) Dysplastic nevus of skin; Translations: [Melanocytic [...] lacrimal gland] Onset: 02-23-2016 02-23-2016 Episodic Other lower respiratory disease (20 sources) Dyspnea; Translations: [Shortness of breath] Onset: 07-19-2022 Episodic Other lower respiratory disease (2 sources) Shortness of breath; Translations: [SOB (shortness of breath)] Onset: 07-19-2022 Episodic Other non-traumatic joint disorders (20 sources) Pain of left wrist; Translations: [Pain in left wrist] Onset: 09-21-2020 09-21-2020 Episodic Other non-traumatic joint disorders (5 sources) Shoulder joint pain; Translations: [Pain in unspecified shoulder] Onset: 11-04-2013 Resolved: 11-30-2015 11-30-2015 Episodic Other screening for suspected conditions (not mental disorders or infectious disease) (20 sources) Patient encounter status; Translations: [Encounter for screening mammogram for malignant neoplasm of breast] Onset: 03-31-2016 03-31-2016 Episodic Other skin disorders (20 sources) Loss of hair; Translations: [Nonscarring hair loss, unspecified] Onset: 07-19-2022 Episodic Residual codes; unclassified (20 sources) Insomnia; Translations: [Insomnia, unspecified] Onset: 12-27-2012 12-27-2012 Episodic Residual codes; unclassified (20 sources) Exposure to mercury; Translations: [Contact with and (suspected) exposure to other hazardous metals] Onset: 03-24-2021 03-24-2021 Episodic Spondylosis; intervertebral disc disorders; other back problems (20 sources) Chronic low back pain; Translations: [Chronic low back pain] Onset: 11-13-2006 Resolved: 06-28-2007 08-08-2011 Episodic Sprains and strains (15 sources) Neck sprain; Translations: [Sprain of joints and ligaments of unspecified parts of neck, initial encounter] Onset: 10-11-2006 Resolved: 11-11-2013 06-28-2007 Episodic Results Test Name Value Interpretation Reference Range Facility Dexa Bone Density Studyon Dexa Bone Density Study [facility] Imaging Services [address] [place] [id number] Dexa Bone Density Study MR#: [id number] Acct: [id number] Name: HENRY OLIVEIRA Rep #: [id number] : 1955 F 68 From: Espinoza thompson MD PCP: Dr. Shin Arias, DO Status: REG [facility] Study: Dexa Bone Density Study Date of Exam: 11/07/23 Exam# [id number] Ordering Dr: EVARISTO CROFT [id number] STUDY: DUAL ENERGY X-RAY ABSORPTIOMETRY / DXA REASON FOR EXAM: Female, 68 years old. M85.89 TECHNIQUE: Bone Mineral Density (BMD) measurements of lumbar spine and bilateral hips were obtained. COMPARISON: None. FINDINGS: Lumbar Spine (L1-L4): g/cm2 (1.016) / T-score (0.3) / Z-score (2.2) Findings are suggestive of normal bone density with a low fracture risk. Left Femur Total: g/cm2 (0.821) / T-score (-1.0) / Z-score (0.4) Left Femoral Neck: g/cm2 (0.668) / T-score (-1.6) / Z-score (0.1) Right Femur Total: g/cm2 (0.791) / T-score (-1.2) / Z-score (0.2) Right Femoral Neck: g/cm2 (0.718) / T-score (-1.2) / Z-score (0.5) BD/Dexa Bone Density Study IMPRESSION: The patient is considered osteopenic as outlined below according to World Hernandez Organization (WHO) criteria with a low fracture risk. Reference Information: The T-score is the number of standard deviations above or below the standard which is normal for young adults at their peak bone mineral density. The World Health Organization (WHO) interprets the T-scores as follows: Above -1 Normal bone density Between -1 and -2.5 Osteopenia Equal to / or below -2.5 Osteoporosis As a practical clinical guideline, osteopenia may be graded as follows: Mild -1 through -1.5 Moderate -1.6 through -2.0 Severe -2.1 through -2.4 The Z-score is the number of standard deviations above or below age-matched controls. A Z-score of less than -1.5 would be considered abnormal. References: 1. NIH Osteoporosis and Related Bone Diseases www osteo.org 2. International Society for Clinical Densitometry www iscd.org 3. National Osteoporosis Foundation www nof.org Electronically Signed: Espinoza Muller MD at 8:51 EDT , CC: Dr. Shin Arias DO; EVARISTO CROFT Silk Top Hat Body Maker: Signed [facility] HENRY OLIVEIRA ([id number]) 1955 F Date Time Provider Department 10/25/23 SHIN ARIAS FAMWS During your visit today, we recorded the following information about you: Breana Saha LPN 10/25/2023 2:40 PM Signed Patient calling asking if order for CPAP supplies had been faxed to [facility]. Patient said [facility] needs copy of office visit notes from 10/21/2023 visit and order faxed to [phone]. Pending order with diagnosis to file. Please advise Jossy Gustafson APRN.SCIENCE WRITER 10/26/2023 1:23 PM Signed Order printed and signed. In outbox. Please fax with notes. Thank you, Jossy Gustafson APRN.Cydney Barros LPN 10/26/2023 2:50 PM Signed Order and all information faxed to [facility] as requested. Allergies As of Date: 10/25/2023 Noted Allergy Reaction BACTRIM (SULFAMETHOXAZOLE) 05/23/2014 4 - Hives MORPHINE SULFATE 03/30/2005 9 - Itching TEA TREE OIL 07/22/2009 2 - Rash Date Reviewed: 07/14/2023 Reviewed by: Neri Robles LPN - Fully Assessed Reason for Visit: Orders [681] Primary Visit Diagnosis:HERNAN (obstructive sleep apnea) [G47.33] Order(s):CPAP DEVICE, WITH HUMIDIFIER [Z1163XFC] Order #: [id number] Prescriptions as of 10/27/2023 - Cholecalciferol, Vitamin D3, 125 mcg (5,000 unit) cap Take 1 capsule by mouth once daily. - ARMOUR THYROID 60 mg tablet Take 1 tablet by mouth once daily. - dextroamphetamine-amphet amine (ADDERALL) 10 mg tablet Take 0.5-1 tablets by mouth once daily for 90 days. - traZODone (DESYREL) 50 mg tablet [...] daily as needed (skin infection). - omega 6-orm-qms-fish oil (FISH OIL) 100-160-1,000 mg cap Take [...] daily as needed for Muscle Spasm. - ascorbic acid, vitamin C, (VITAMIN C) 500 mg tablet Take 1 tablet by mouth three times daily. - PROPYLENE GLYCOL/PEG 400 (BLINK TEARS LUBRICATING) Eye Drops Use 1 Drop in both eyes four times daily. - Aspirin 81 mg Tab Take 4 tablets by mouth one time only for 1 dose. Meds Comments as of 08/09/2021: .rxe Problem List As Of Date 10/25/2023 Noted Resolved DEPRESSIVE DISORDER NEC [F32.89] 09/27/2006 [...] [Z00.00] 07/25/2018 Vertebral artery stenosis, bilateral [I65.03] (more content not included)... Normal [facility] CNOVon 10-21-2023 CNOV Office Visit (FAMPWS ) -------- HENRY OLIVEIRA ([id number]) 1955 F Date Time Provider Department 10/21/23 10:40 AM [facility] During your visit today, we recorded the following information about you: Temperature Pulse Respiration Blood pressure 97.3 degrees 76/minute 16/minute 120/68 Weight 55.3 kg Shin Arias DO 10/21/2023 11:21 AM Signed Bone stimulator ??? Ask Dr. Urias if this is needed Protein pea powder or whey powder - scoop into milk or water once a day Transparent labs brand or Organic Bone broth daily drink Shin Arias DO 10/23/2023 7:32 AM Signed CC: Henry Oliveira is a 68 year old female who presents to the office for follow up HPI: She is overall doing well She is post operative from her right foot 1st MTP fusion surgery by [employer] Dr. Urias. She is in a walking boot with weight bearing now that is minimal. She is having follow up after recent CT for her foot to determine if she is getting adequate bone formation at the surgical site. Vitamin B12 and D deficiency, she is taking supplements. Has chronic fatigue but she feels some of her symptoms are still from her surgery and anesthesia. 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 She is going to trial a few masks to see what seems to fit best at this time with weight fluctuations. She is going to be changing to [facility] at this time. She uses the mask/machine and gives her benefit for her sleep and wellness in the morning and daytime PAST MEDICAL HISTORY Diagnosis Date Abnormal glandular Papanicolaou smear of cervix Abn. Pap smear (cervix) Asymptomatic varicose veins Depressive disorder, not elsewhere classified 09/27/2006 Hearing decreased Hyperlipidemia Hypothyroidism 2010 HERNAN on CPAP DME [facility] Peripheral vascular disease, unspecified (HCC) varicose veins [...] cuff repair Current Outpatient Medications Medication Sig ARMOUR THYROID 60 mg tablet Take 1 tablet by mouth once daily. dextroamphetamine-amphet amine (ADDERALL) 10 mg tablet Take 0.5-1 tablets by mouth once daily for 90 days. traZODone (DESYREL) 50 mg tablet TAKE 1 TO 2 TABLETS AT BEDTIME FOR SLEEP FLUoxetine (PROZAC) 10 mg capsule Take 1 capsule by mouth once daily. mometasone (ELOCON) 0.1 % ointment Apply to affected area once daily as needed. Once daily as needed on rash mupirocin (BACTROBAN) 2 % ointment Apply to affected area twice daily as needed (skin infection). omega 7-ppi-glc-fish oil (FISH OIL) 100-160-1,000 mg cap Take [...] mouth one time only for 1 dose. No current facility-administered medications for this visit. [...] use: No ROS: See HPI PE: BP 120/68 Pulse 76 Temp (Src) 97.3 (Left Tympanic) Resp 16 Wt 122 lb (55.3kg) LMP 10/13/2006 Gen: AANDOX3, NAD, non-toxic appearing HEENT: PERRLA, EOMs intact b/l, nares without drainage, pharynx without erythema, exudate, lesions, or drainag (more content not included)... Normal [facility] 10-20-2023 [facility] -------- HENRY OLIVEIRA ([id number]) 1955 F Date Time Provider Department 10/20/23 SHIN ARIAS [facility] During your visit today, we recorded the following information about you: Laury Pierre RN 10/20/2023 1:39 PM Signed Francia from [facility] called in and reports Pt is going to be getting their CPAP supplies through them now. She was asking to have OV notes and updated orders faxed to # [phone]. I did not see orders, or mention of Pts CPAP in any recent notes with PCP. I tried calling Pt to see if she had talked with provider about switching CPAP supplies from [facility] to [facility]. I didn't see any messages in the computer where the Pt had called in asking for supplies to be switched, so called Pt to verify. Pt may need to come in and be seen by provider as there is nothing in notes about CPAP. Jossy Gustafson APRN.ARA 10/20/2023 3:10 PM Signed Would recommend virtual visit to address this. Thank you, Jossy Gustafson APRN.Cydney Barros LPN 10/20/2023 3:14 PM Signed Left message to return call for appt. Jazlyn Marquez RN 10/20/2023 3:34 PM Signed OV appt made as recommended below. Pt unable to do virtual visit. Jazlyn Marquez RN Allergies As of Date: 10/20/2023 Noted Allergy Reaction BACTRIM (SULFAMETHOXAZOLE) 05/23/2014 4 - Hives MORPHINE SULFATE 03/30/2005 9 - Itching TEA TREE OIL 07/22/2009 2 - Rash Date Reviewed: 07/14/2023 Reviewed by: Neri Robles LPN - Fully Assessed Reason for Visit: Fax over OV notes and Updated Orders [Other] Prescriptions as of 10/20/2023 - ARMOUR THYROID 60 mg tablet Take 1 tablet by mouth once daily. - dextroamphetamine-amphet amine (ADDERALL) 10 mg tablet Take 0.5-1 tablets by mouth once daily for 90 days. - traZODone (DESYREL) 50 mg tablet [...] daily as needed (skin infection). - omega 4-ubr-lmy-fish oil (FISH OIL) 100-160-1,000 mg cap Take [...] mouth one time only for 1 dose. Meds Comments as of 08/09/2021: .rxe Problem List As Of Date 10/20/2023 Noted Resolved DEPRESSIVE DISORDER NEC [F32.89] 09/27/2006 [...] [R53.83] 02/28/2017 Concentration deficit [R41.840] 02/28/2017 Mood disor (more content not included)... Normal [facility] Extremity Lower without Cont raon 10-18-2023 Extremity Lower without Contra [facility] Imaging Services [address], [place] [id number] Extremity Lower without Contra MR#: [id number] Acct: [id number] Name: HENRY OLIVEIRA Israel Rep #: [id number] : 1955 F 68 From: Jared Yost MD PCP: Dr. 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 CTDIvol = ( 15.35 ) mGy, DLP = ( 351.15 ) mGycm This CT exam was performed using one or more of the following dose reduction techniques: automated exposure control, adjustment of the mA and/or kV according to patient size, and/or use of iterative reconstruction technique. COMPARISON: Single FINDINGS: BONES/JOINTS: Dorsal plate and screw fusion across the first metatarsophalangeal joint with bony bridging identified across the joint space. No palpitations. No acute fracture. No subluxation. Normal alignment. No sclerotic or destructive changes. SOFT TISSUES: Unremarkable. No radiopaque foreign body. No soft tissue masses or fluid collections. TUBES, LINES AND DEVICES: Single small cannulated screw is identified at extending across the second metatarsal tarsal head from a dorsal approach. The associated metatarsal head/neck appears healed. CT/Extremity Lower without Contra IMPRESSION: Dorsal plate and screw fusion across the first metatarsophalangeal joint with bony bridging identified across the joint space. No palpitations. Electronically Signed: Jared Yost MD at 15:16 EDT , CC: EVARISTO CROFT; Dr. Shin Arias DO Silk Top Hat Body Maker: Signed Normal [facility] 07-15-2023 [facility] Telephone ([facility]) -------- HENRY OLIVEIRA ([id number]) 1955 F Date Time Provider Department 07/15/23 HSIN ARIAS During your visit today, we recorded the following information about you: Shin Arias DO 07/15/2023 8:13 AM Signed Please inform patient that her thyroid labs all look great, no changes needed DO Jerman Yarbrough Susan LPN 07/15/2023 9:26 AM Signed Pt. informed via My Chart. Allergies As of Date: 07/15/2023 Noted Allergy Reaction BACTRIM (SULFAMETHOXAZOLE) 05/23/2014 4 - Hives MORPHINE SULFATE 03/30/2005 9 - Itching TEA TREE OIL 07/22/2009 2 - Rash Date Reviewed: 07/14/2023 Reviewed by: Neri Robles LPN - Fully Assessed Prescriptions as of 07/15/2023 - ARMOUR THYROID 60 mg tablet Take 1 tablet by mouth once daily. - dextroamphetamine-amphet amine (ADDERALL) 10 mg tablet Take 0.5-1 tablets by mouth once daily for 90 days. - traZODone (DESYREL) 50 mg tablet [...] daily as needed (skin infection). - omega 5-dmi-obc-fish oil (FISH OIL) 100-160-1,000 mg cap Take [...] for 1 dose. Facility-Administered Medications as of 07/15/2023 - perflutren lipid microspheres 1.3 mL in NaCl (PF) 0.9% 10 mL injection (DEFINITY) - sodium chloride 0.9 % (flush) 10 mL (BD POSIFLUSH) Meds Comments as of 08/09/2021: .rxe Problem List As Of Date 07/15/2023 Noted Resolved DEPRESSIVE DISORDER NEC [F32.89] 09/27/2006 [...] [M25.532] 09/21/2020 Vitamin B12 deficiency [E53.8] 03/24/2021 Hy (more content not included)... Normal [facility] CNOVon 07-14-2023 CNOV Office Visit ([facility] ) -------- HENRY OLIVEIRA ([id number]) 1955 F Date Time Provider Department 07/14/23 3:40 PM SHIN ARIAS [facility] During your visit today, we recorded the following information about you: Pulse Respiration Blood pressure Weight 63/minute 16/minute 130/84 55.3 kg Shin Arias, DO 07/15/2023 7:19 AM Signed CC: Henry Oliveira is a 67 year old female who presents to the office for follow up HPI: Last seen in office on May 03, 2023 Admits to having some intermittent feeling of [...] this brings her melyssa. 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 Interested in seeing Shuttler [facility] at [facility]. Currently She is going to be having upcoming surgery by Dr. Gui Urias on her right foot to help her great toe pain- will be having a fusion and will be off work for 3 months and potentially longer. Surgery is scheduled for 10 days from now, she has a shower chair and kneeled scooter and rollator walker already. She will have help from friends for surgery. Mood, overall doing well. Taking prozac and medication as prescribed ADD, chronic fatigue, she is taking adderall, no adverse SE with medication. Has great support from her zoroastrian family PAST MEDICAL HISTORY Diagnosis Date Abnormal glandular Papanicolaou smear of cervix Abn. Pap smear (cervix) Asymptomatic varicose veins Depressive disorder, not elsewhere classified 09/27/2006 Hearing decreased Hyperlipidemia Hypothyroidism 2010 HERNAN on CPAP [facility] Peripheral vascular disease, unspecified (HCC) varicose [...] Current Outpatient Medications Medication Sig FLUoxetine (PROZAC) 10 mg capsule Take 1 capsule by mouth once daily. mometasone (ELOCON) 0.1 % ointment Apply to affected area once daily as needed. Once daily as needed on rash mupirocin (BACTROBAN) 2 % ointment Apply to affected area twice daily as needed (skin infection). omega 8-wbk-zwg-fish oil (FISH OIL) 100-160-1,000 mg cap Take [...] mouth one time only for 1 dose. ARMOUR THYROID 60 mg tablet Take 1 tablet by mouth once daily. dextroamphetamine-amphet amine (ADDERALL) 10 mg tablet Take 0.5-1 tablets by mouth once daily for 90 days. traZODone (DESYREL) 50 mg tablet TAKE 1 TO 2 TABLETS AT BEDTIME FOR SLEEP Current Facility-Administered Medications Medication Dose Route Frequency [...] Smokeless tobacco: Never Vaping Use Vaping Use: Nev (more content not included)... Normal [facility] T3Free SerPl-mCncon 07-14-19 24 Free T3 [Mass/Vol] 3.1 pg/mL Normal 2.3-4.1 [facility] Comment on above: Order Comment: Speci men Type: BLOOD SPECIMENOrdering Facility: [facility] Address: [address] [place] [address] Performed By: #### 3 016-3, 3051-0, 3024-7 ####[facility] [id number] [place] [address] [place] T4 Free SerPl-mCncon 024 Free T4 [Mass/Vol] 1.1 ng/dL Normal 0.9-1.7 [facility] Comment on above: Order Comment: Speci men Type: BLOOD SPECIMENOrdering Facility: [facility] Address: [address] [place] [address] Performed By: #### 3 016-3, 3051-0, 3024-7 ####[facility] [id number] [place] [address] [place] TSH SerPl-aCncon 07-14-2023 TSH Qn 1.210 m[IU]/L Normal 0.270-4.200 [facility] Comment on above: Order Comment: Speci men Type: BLOOD SPECIMENOrdering Facility: [facility] Address: [address] [place] [address] Performed By: #### 3 016-3, 3051-0, 3024-7 ####[facility] [id number] [address] [address] [place] [facility] -------- HENRY OLIVEIRA ([id number]) 1955 F Date Time Provider Department 07/10/23 [facility] During your visit today, we recorded the following information about you: Alivia Fagan RN 07/10/2023 10:36 AM Signed Faxed most recent EKG results to [facility] de[facility], per [facility] request. . Confirmation received. Allergies As of Date: 07/10/2023 Noted Allergy Reaction BACTRIM (SULFAMETHOXAZOLE) 05/23/2014 4 - Hives MORPHINE SULFATE 03/30/2005 9 - Itching TEA TREE OIL 07/22/2009 2 - Rash Date Reviewed: 05/03/2023 Reviewed by: Lupe Stoll LPN - Fully Assessed Prescriptions as of 07/10/2023 - dextroamphetamine-amphet amine (ADDERALL) 10 mg tablet Take 0.5-1 tablets [...] daily as needed (skin infection). - omega 1-onz-jqu-fish oil (FISH OIL) 100-160-1,000 mg cap Take [...] for 1 dose. Facility-Administered Medications as of 07/10/2023 - perflutren lipid microspheres 1.3 mL in NaCl (PF) 0.9% 10 mL injection (DEFINITY) - sodium chloride 0.9 % (flush) 10 mL (BD POSIFLUSH) Meds Comments as of 08/09/2021: .rxe Problem List As Of Date 07/10/2023 Noted Resolved DEPRESSIVE DISORDER NEC [F32.89] 09/27/2006 [...] deficiency [E53.8] 03/24/2021 Hyperglycemia [R73.9] 03/24/2021 Exposure t (more content not included)... Normal [facility] CNPNon 07-06-2023 [facility] Telephone ([facility]) -------- HENRY OLIVEIRA ([id number]) 1955 F Date Time Provider Department 07/06/23 [facility] During your visit today, we recorded the following information about you: Shin Arias DO 07/06/2023 10:54 AM Signed Patient stated that she was needin to be seen earlier due to surgery upcoming Okay to schedule on Monday07/14/23 at 340 through 420 pm if this is still available and works for the patient DO Timoteo Yarbrough Linda M, LPN 07/06/2023 11:17 AM Signed Would you mind opening for pt and placing her in one of these. I can not open. Lupe Stoll LPN 07/07/2023 3:06 PM Signed Pt. informed detailed message left on VM. Allergies As of Date: 07/06/2023 Noted Allergy Reaction BACTRIM (SULFAMETHOXAZOLE) 05/23/2014 4 - Hives MORPHINE SULFATE 03/30/2005 9 - Itching TEA TREE OIL 07/22/2009 2 - Rash Date Reviewed: 05/03/2023 Reviewed by: Lupe Stoll LPN - Fully Assessed Prescriptions as of 07/07/2023 - dextroamphetamine-amphet amine (ADDERALL) 10 mg tablet Take 0.5-1 tablets [...] daily as needed (skin infection). - omega 3-zer-avf-fish oil (FISH OIL) 100-160-1,000 mg cap Take [...] for 1 dose. 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 Normal [facility] Chest PA and Lateralon 06-20 Chest PA and Lateral [facility] Imaging Services [address] [place] [address] Chest PA and Lateral MR#: [id number] Acct: [id number] Name: HENRY OLIVEIRA Rep #: [id number] : 1955 F 67 From: Sathya Everett PCP: Dr. Shin Arias DO Status: REG CLI Study: Chest PA and Lateral Date of Exam: 06/20/23 Exam# [id number] Ordering Dr: Shin Arias DO [id number] INDICATION: Shortness of breath EXAMINATION/TECHNIQUE: X-RAY - [...] EST , CC: Dr. Shin Arias DO Silk Top Hat Body Maker: Signed Normal [facility] Echo Completeon 06-20-2023 Echo Complete [facility] Cardiovascular Services [address] [place] [address] Echo Complete 06/20/23 1324 MR#: [id number] Acct: [id number] Name: HENRY OLIVEIRA Rep #: [id number] : 1955 67 From: Shilo August MD Attending Dr: Dr. Shin Arias DO Status: R EG CLI Ordering Dr: Shin Arias DO Date: 06/20/23 Location: [facility] Sex: F C Admitted: Reason For Study: [...] Date Dictated: 06/20/23 1324 Date Transcribed: 06/20/231623 Silk Top Hat Body Maker: Krystina [facility] 06-09-2023 [facility] Telephone ([facility]) -------- HENRY OLIVEIRA ([id number]) 1955 F Date Time Provider Department 06/09/23 SHIN ARIAS During your visit today, we recorded the following information about you: Sweetie JenniferMary Jo 06/09/2023 4:24 PM Signed Tawana is calling Shin Arias DO today to request a RX to start generic synthroid as the [place] thyroid has become too expensive. Patient has not picked up that RX from [facility] as it was to costly. Please send the levothyroxine to [facility] if provider agrees. Patient is almost out [...] calling: self Call patient at: on cell [phone] (home) [phone] (work) [phone] (cell) Was an appointment scheduled: No Closing statement: Results or non-symptom based questions: Thank you for calling [facility], your call will be returned within the next business day. Mary Jo Pitt [facility] Alivia Fagan RN 06/12/2023 9:27 AM Signed Pt wants to cancel this request. States she wants to stick with the [place] thyroid for now. Allergies As of Date: 06/09/2023 Noted Allergy Reaction BACTRIM (SULFAMETHOXAZOLE) 05/23/2014 4 - Hives MORPHINE SULFATE 03/30/2005 9 - Itching TEA TREE OIL 07/22/2009 2 - Rash Date Reviewed: 05/03/2023 Reviewed by: Lupe Stoll LPN - Fully Assessed Reason for Visit: Medication Request [138] Prescriptions as of 06/12/2023 - dextroamphetamine-amphet amine (ADDERALL) 10 mg tablet Take 0.5-1 tablets [...] daily as needed (skin infection). - omega 0-oun-mjj-fish oil (FISH OIL) 100-160-1,000 mg cap Take [...] right-sided *11/01/2016 (more content not included)... Normal [facility] CNOVon 05-03-2023 CNOV Office Visit ([facility]AMPWS ) -------- HENRY OLIVEIRA ([id number]) 1955 F Date Time Provider Department 05/03/23 9:40 AM [facility] During your visit today, we recorded [...] prolonged standing or walking. 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 Did have some [...] this brings her melyssa. 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 Interested in seeing Shuttler Car at [facility]. PAST MEDICAL HISTORY Diagnosis Date Abnormal glandular Papanicolaou smear of cervix Abn. Pap smear (cervix) Asymptomatic varicose veins Depressive disorder, not elsewhere classified 09/27/2006 Hearing decreased Hyperlipidemia Hypothyroidism 2010 HERNAN on CPAP DME [facility] Peripheral vascular disease, (more content not included)... Normal [facility] CIK91ri 05-03-2023 ECG01 Ventricular Rate : 5 2 BPM Atrial Rate : 52 BPM P-R Interval : 160 ms QRS Duration : 84 ms Q-T Interval : 442 ms QTC Calculation(Bazett) : 411 ms Calculated P [place] : 67 degrees Calculated R [place] : 28 degrees Calculated T [place] : 55 degrees SINUS BRADYCARDIA OTHERWISE NORMAL ECG Confirmed by ISRAEL LIU D.O. ([id number]) on 05/19/2023 3:41:26 PM NAME : HENRY OLIVEIRA PID : [id number] : 1955 Gender : Female Race : ORD : Procedure Date : May 03 2023 10:54:51 Edit Date : May 19 2023 15:41:31 Diagnosis: SINUS BRADYCARDIA OTHERWISE NORMAL ECG Confirmed by ISRAEL LUI D.O. ([id number]) on 05/19/2023 3:41:26 PM Test Reason : Location : 185 : [facility] Overread By : ISRAEL LIU D.O. Edited By : ISRAEL LIU D.O. Referred By : , Acquired by : Ana arcos [facility] Bailey 02-09-2023 CNPN Telephone (FAMCar reviewsWS) -------- HENRY OLIVEIRA ([id number]) 1955 F Date Time Provider Department 02/09/23 [facility] During your visit today, we recorded the following information about you: Sera Dobson Ma 02/09/2023 8:48 AM Signed Received fax from pharmacy PA needed for [place] thyroid. Electronic PA submitted SeraSera Goodman Ma, Ma 02/09/2023 10:00 AM Signed PA [...] Fully Assessed Reason for Visit: Insurance Authorization [[id number]] Cmt: [place] thyroid Prescriptions as of 02/09/2023 - [place] THYROID 60 mg tablet Take 1 tablet by mouth once daily. - FLUoxetine (PROZAC) 10 mg capsule Take 1 capsule by mouth once daily. - dextroamphetamine-amphet amine (ADDERALL) 10 mg tablet Take 0.5-1 tablets [...] daily as needed (skin infection). - omega 1-mgf-ksr-fish oil (FISH OIL) 100-160-1,000 mg cap Take [...] of ri (more content not included)... Normal [facility] 01-26-2023 [facility] Telephone (UCW[facility]) -------- HENRY OLIVEIRA ([id number]) 1955 F Date Time Provider Department 01/26/23 [facility] During your visit today, we recorded the following information about you: Kelsea Vallecillo MA 01/26/2023 8:35 AM Signed ----- Message from Lida Cardenas APRN.SCIENCE WRITER sent at 01/26/2023 7:21 AM EDT ----- [...] care provider or schedule a visit with [facility] Online. A test is not [...] Results [95] Prescriptions as of 01/26/2023 - dextroamphetamine-amphet amine (ADDERALL) 10 mg tablet Take 0.5-1 tablets [...] tablet by mouth once daily. - omega 1-zhe-xkg-fish oil (FISH OIL) 100-160-1,000 mg cap Take [...] region [M99.0 (more content not included)... Normal [facility] Influenza virus A and B RNA and SARS-CoV-2 (COVID-19) N gene panel TAYLER+probe (Resp)on 01-26-2023 FLUAV RNA TAYLER+probe Ql (Unsp spec) Not detected Not Detected [facility] FLUBV RNA TAYLER+probe Ql (Unsp spec) Not detected Not Detected [facility] SARS-CoV-2 (COVID-19) RNA TAYLER+probe Ql (Resp) Detected Abnormal See comment [facility] CNOVon 01-25-2023 CNOV Office Visit (UCWSTR ) -------- HENRY OLIVEIRA ([id number]) 1955 F Date Time Provider Department 01/25/23 3:30 PM CHRIS RENDON [facility] During your visit today, we recorded [...] Tylenol MEDICATIONS: Current Outpatient Medications Medication Sig dextroamphetamine-amphet amine (ADDERALL) 10 mg tablet Take 0.5-1 tablets [...] 1 tablet by mouth once daily. omega 8-lmy-oqo-fish oil (FISH OIL) 100-160-1,000 mg cap Take [...] Primary Visit Diagnosis:Sore throat [J02.9] Other Visit Diagnosis:Influenza-like illness [J11.1] Order(s):STREP A MOLECULAR (POC) [4706555] Order #: [id number]. #:[id number] COVID AND INFLUENZA A/B NAAT, ROUTINE [SQCOVFLU] Order #: [id number]. #:[id number] Prescriptions as of 01/25/2023 - dextroamphetamine-amphet amine (ADDERALL) 10 mg tablet Take 0.5-1 tablets [...] ARMOUR THYROID (more content not included)... Normal [facility] FLUABV + SARS-CoV-2 Pnl Resp TAYLER+prbon 01-25-2023 Influenza virus A and B RNA and SARS-CoV-2 (COVID-19) N gene panel TAYLER+probe (Resp) COVID 19 RESULT: Detected The method used is RT-PCR or an equivalent NAAT method. Reference Range (the expected result in uninfected individuals): Not detected INFLUENZA A PCR: Not detected INFLUENZA B PCR: Not detected Abnormal [facility] Comment on above: Performed By: #### 9 5422-2 ####[facility] [id number] [place] [address] [place] STREP A MOLECULAR (POC)on Procedural Control Valid [facility] Strep A (POCT) Negative Negative [facility] CNOVon 12-26-2022 CNOV Office Visit (FAMPWS ) -------- TEEHENRY Israel ([id number]) 1955 F Date Time Provider Department 12/26/22 [...] decreased Hyperlipidemia Hypothyroidism 2010 HERNAN on CPAP [facility] Peripheral vascular disease, unspecified (HCC) varicose [...] by mouth once daily. 90 capsule 1 dextroamphetamine-amphet amine (ADDERALL) 10 mg tablet Take 0.5-1 tablets by mouth once daily for 30 days. 30 tablet 0 mometasone (ELOCON) 0.1 % ointment Apply to affected area once daily as needed. Once daily as needed on rash 15 (more content not included)... Normal [facility] CNOVon 11-25-2022 CNOV Office Visit (FAMPWS ) -------- HENRY OLIVEIRA ([id number]) 1955 F Date Time Provider Department 11/25/22 2:00 PM [facility] During your visit today, we recorded the following information about you: Pulse Respiration Blood pressure Weight 87/minute 16/minute 116/68 57.6 kg M Thien Leyav PA-C 11/25/2022 5:53 PM Signed 67 year [...] of self injury. Continues to work at [employer], job that she enjoys related to the [...] decreased Hyperlipidemia Hypothyroidism 2010 HERNAN on CPAP [facility] Peripheral vascular disease, unspecified (HCC) varicose [...] (Shortness of (more content not included)... Normal [facility] Hepatic function 2000 panelo n 05-20-2022 Albumin [Mass/Vol] 3.9 g/dL 3.9 - 4.9 g/dL [facility] ALP [Catalytic activity/Vol] 99 U/L 34 - 123 U/L [facility] ALT [Catalytic activity/Vol] 15 U/L 7 - 38 U/L [facility] [facility] AST [Catalytic activity/Vol] 21 U/L 13 - 35 U/L [facility] Bilirubin [Mass/Vol] 0.2 mg/dL 0.2 - 1.3 mg/dL [facility] Bilirubin.conjuga deandre [Mass/Vol] <0.2 mg/dL [facility] Protein [Mass/Vol] 6.6 g/dL 6.3 - 8.0 g/dL [facility] Influenza virus A and B RNA and SARS-CoV-2 (COVID-19) N gene panel TAYLER+probe (Resp)on 05-20-2022 FLUAV RNA TAYLER+probe Ql (Unsp spec) Negative Negative for Influenza A by RT-PCR [facility] FLUBV RNA TAYLER+probe Ql (Unsp spec) Negative Negative for Influenza B by RT-PCR [facility] SARS-CoV-2 (COVID-19) RNA TAYLER+probe Ql (Resp) SARS-CoV-2 (Agent of COVID-19) Not Detected by RT-PCR or equivalent method. Not Detected [facility] CBC W Auto Differential pane l (Bld)on 05-19-2022 Basophils (Bld) [#/Vol] 0.03 10*3/uL <0.11 k/uL [facility] Basophils/100 WBC (Bld) 0.5 % [facility] Differential cell count method Nom (Bld) Auto [facility] Eosinophils (Bld) [#/Vol] 0.08 10*3/uL <0.46 k/uL [facility] Eosinophils/100 WBC (Bld) 1.4 % [facility] Erythrocyte distribution width (RBC) [Ratio] 11.5 % 11.5 - 15.0 % [facility] Hematocrit (Bld) [Volume fraction] 40.3 % 36.0 - 46.0 % [facility] Hemoglobin (Bld) [Mass/Vol] 13.4 g/dL 11.5 - 15.5 g/dL [facility] Immature granulocytes (Bld) [#/Vol] <0.10 k/uL [facility] Immature granulocytes/100 WBC (Bld) 0.3 % [facility] Lymphocytes (Bld) [#/Vol] 1.92 10*3/uL 1.00 - 4.00 k/uL [facility] Lymphocytes/100 WBC (Bld) 33.3 % [facility] MCH (RBC) [Entitic mass] 29.8 pg 26.0 - 34.0 pg [facility] MCHC (RBC) [Mass/Vol] 33.3 g/dL 30.5 - 36.0 g/dL [facility] MCV (RBC) [Entitic vol] 89.6 fL 80.0 - 100.0 fL [facility] Monocytes (Bld) [#/Vol] 0.30 10*3/uL <0.87 k/uL [facility] Monocytes/100 WBC (Bld) 5.2 % [facility] Neutrophils (Bld) [#/Vol] 3.41 10*3/uL 1.45 - 7.50 k/uL [facility] Neutrophils/100 WBC (Bld) 59.3 % [facility] Nucleated RBC (Bld) [#/Vol] <0.01 k/uL [facility] Nucleated RBC/100 WBC (Bld) [Ratio] 0.0 /100 WBC [facility] Platelet mean volume (Bld) [Entitic vol] 10.4 fL 9.0 - 12.7 fL [facility] Platelets (Bld) [#/Vol] 206 10*3/uL 150 - 400 k/uL [facility] RBC (Bld) [#/Vol] 4.50 10*6/uL 3.90 - 5.2 0 m/uL [facility] WBC (Bld) [#/Vol] 5.76 10*3/uL 3.70 - 11. 00 k/uL [facility] XR FOOT LEFT 3 VIEWSon 07-29 [...] surgery at the second PIP joint Normal [facility] XR FOOT RIGHT 3 VIEWSon 07-13 [...] joint osteoarthritis No acute osseous abnormality Normal [facility] XR Foot - left 3 Viewson [...] prior surgery at the second PIP joint [facility] Radiology Study observation (narrative) [facility] XR Foot - right 3 Viewson IMPRESSION: [...] interphalangeal joint osteoarthritis No acute osseous abnormality [facility] Radiology Study observation (narrative) [facility] XR Foot - right 3 ViewsOrder ed By: Andria Bermudez on 07-29-2021 [facility] Work Phone: Vital Signs Date Time Vital Sign Value Performing Clinician Gisell benavides 10-21-2023 10:41-0400 Body mass index (BMI) [Ratio] 21.47 kg/m2 Shin Arias DO Work Phone: [facility] 10-21-2023 10:41-0400 Body temperature 97.3 [degF] Shin Arias DO Work Phone: [facility] 10-21-2023 10:41-0400 Body weight 55.34 kg Shin Arias DO Work Phone: [facility] 10-21-2023 10:41-0400 Diastolic blood pressure 68 mm[Hg] Shin Arias DO Work Phone: [facility] 10-21-2023 10:41-0400 Heart rate 76 /min Shin Arias DO Work Phone: [facility] 10-21-2023 10:41-0400 Respiratory rate 16 /min Shin Arias DO Work Phone: [facility] 10-21-2023 10:41-0400 Systolic blood pressure 120 mm[Hg] Shin Arias DO Work Phone: [facility] 01-25-2023 15:35-0400 Body temperature 98.8 [degF] Chris Rendon MD Work Phone: [facility] 01-25-2023 15:35-0400 Body weight 56.25 kg Chris Rendon MD Work Phone: [facility] 01-25-2023 15:35-0400 Diastolic blood pressure 80 mm[Hg] Chris Rendon MD Work Phone: [facility] 01-25-2023 15:35-0400 Heart rate 58 /min Chris Rendon MD Work Phone: [facility] 01-25-2023 15:35-0400 Respiratory rate 16 /min Chris Rendon MD Work Phone: [facility] 01-25-2023 15:35-0400 SaO2% (BldA) [Mass fraction] 98 % Chris Rendon MD Work Phone: [facility] 01-25-2023 15:35-0400 Systolic blood pressure 120 mm[Hg] Chris Rendon MD Work Phone: [facility] 12-26-2022 07:59-0400 Body weight 55.79 kg NA Gordon PA-C Work Phone: [facility] 12-26-2022 07:59-0400 Diastolic blood pressure 60 mm[Hg] NA Leyva PA-C Work Phone: [facility] 12-26-2022 07:59-0400 Heart rate 67 /min NA Leyva PA-C Work Phone: [facility] 12-26-2022 07:59-0400 Respiratory rate 16 /min NA Levya PA-C Work Phone: [facility] 12-26-2022 07:59-0400 SaO2% (BldA) [Mass fraction] 97 % NA Leyva PA-C Work Phone: [facility] 12-26-2022 07:59-0400 Systolic blood pressure 110 mm[Hg] NA Leyva PA-C Work Phone: [facility] 11-25-2022 13:59-0400 Body weight 57.61 kg NA Leyva PA-C Work Phone: [facility] 11-25-2022 13:59-0400 Diastolic blood pressure 68 mm[Hg] NA Leyva PA-C Work Phone: [facility] 11-25-2022 13:59-0400 Heart rate 87 /min NA Leyva PA-C Work Phone: [facility] 11-25-2022 13:59-0400 Respiratory rate 16 /min NA Leyva PA-C Work Phone: [facility] 11-25-2022 13:59-0400 SaO2% (BldA) [Mass fraction] 100 % NA Leyva PA-C Work Phone: [facility] 11-25-2022 13:59-0400 Systolic blood pressure 116 mm[Hg] NA Leyva PA-C Work Phone: [facility] 10-19-2022 08:29-0400 Body temperature 98.2 [degF] Shin Arias DO Work Phone: [facility] 10-19-2022 08:29-0400 Body weight 58.51 kg Shin Arias DO Work Phone: [facility] 10-19-2022 08:29-0400 Diastolic blood pressure 74 mm[Hg] Shin Arias DO Work Phone: [facility] 10-19-2022 08:29-0400 Heart rate 64 /min Shin Arias DO Work Phone: [facility] 10-19-2022 08:29-0400 Respiratory rate 16 /min Shin Arias DO Work Phone: [facility] 10-19-2022 08:29-0400 Systolic blood pressure 130 mm[Hg] Shin Arias DO Work Phone: [facility] 08-10-2022 11:05-0400 Body temperature 98.4 [degF] Shin Arias DO Work Phone: [facility] 08-10-2022 11:05-0400 Body weight 58.06 kg Shin Arias DO Work Phone: [facility] 08-10-2022 11:05-0400 Diastolic blood pressure 80 mm[Hg] Shin Arias DO Work Phone: [facility] 08-10-2022 11:05-0400 Heart rate 88 /min Shin Arias DO Work Phone: [facility] 08-10-2022 11:05-0400 Respiratory rate 16 /min Shin Arias DO Work Phone: [facility] 08-10-2022 11:05-0400 Systolic blood pressure 120 mm[Hg] Shin Arias DO Work Phone: [facility] 07-20-2022 09:10-0500 Body height 160.5 cm Pulm Wstr Work Phone: [facility] 07-20-2022 09:10-0500 Body weight 58.06 kg Pulm Wstr Work Phone: [facility] 07-20-2022 09:10-0500 Heart rate 70 /min Pulm Wstr Work Phone: [facility] 07-20-2022 09:10-0500 Respiratory rate 14 /min Pulm Wstr Work Phone: [facility] 07-20-2022 09:10-0500 SaO2% (BldA) [Mass fraction] 99 % Pulm Wstr Work Phone: [facility] 07-19-2022 08:54-0500 Body temperature 98.49 [degF] Shin Arias DO Work Phone: [facility] 07-19-2022 08:54-0500 Body weight 59.88 kg Shin Arias DO Work Phone: [facility] 07-19-2022 08:54-0500 Diastolic blood pressure 82 mm[Hg] Shin Arias DO Work Phone: [facility] 07-19-2022 08:54-0500 Heart rate 72 /min Shin Arias DO Work Phone: [facility] 07-19-2022 08:54-0500 Respiratory rate 16 /min Shin Arias DO Work Phone: [facility] 07-19-2022 08:54-0500 Systolic blood pressure 138 mm[Hg] Shin Arias DO Work Phone: [facility] 06-06-2022 10:10-0500 Body weight 59.33 kg Jossy Gustafson MANAGED CARE PROVIDER.SCIENCE WRITER Work Phone: [facility] 06-06-2022 10:10-0500 Diastolic blood pressure 60 mm[Hg] Jossy Gustafson MANAGED CARE PROVIDER.SCIENCE WRITER Work Phone: [facility] 06-06-2022 10:10-0500 Heart rate 62 /min Jossy Gustafson MANAGED CARE PROVIDER.SCIENCE WRITER Work Phone: [facility] 06-06-2022 10:10-0500 Respiratory rate 14 /min Jossy Gustafson MANAGED CARE PROVIDER.SCIENCE WRITER Work Phone: [facility] 06-06-2022 10:10-0500 Systolic blood pressure 120 mm[Hg] Jossy Gustafson MANAGED CARE PROVIDER.SCIENCE WRITER Work Phone: [facility] 05-19-2022 13:35-0500 Body temperature 98.91 [degF] JOSEFINA Leyva PA-C Work Phone: [facility] 05-19-2022 13:35-0500 Body weight 59.42 kg NA Leyva PA-C Work Phone: [facility] 05-19-2022 13:35-0500 Diastolic blood pressure 70 mm[Hg] NA Leyva PA-C Work Phone: [facility] 05-19-2022 13:35-0500 Heart rate 70 /min NA Leyva PA-C Work Phone: [facility] 05-19-2022 13:35-0500 Respiratory rate 14 /min NA Leyva PA-C Work Phone: [facility] 05-19-2022 13:35-0500 SaO2% (BldA) [Mass fraction] 99 % NA Leyva PA-C Work Phone: [facility] 05-19-2022 13:35-0500 Systolic blood pressure 128 mm[Hg] NA Leyva PA-C Work Phone: [facility] 05-10-2022 16:40-0500 Body weight 60.78 kg NA Leyva PA-C Work Phone: [facility] 05-10-2022 16:40-0500 Diastolic blood pressure 58 mm[Hg] NA Leyva PA-C Work Phone: [facility] 05-10-2022 16:40-0500 Heart rate 98 /min NA Leyva PA-C Work Phone: [facility] 05-10-2022 16:40-0500 Respiratory rate 16 /min NA Leyav PA-C Work Phone: [facility] 05-10-2022 16:40-0500 SaO2% (BldA) [Mass fraction] 97 % NA Leyva PA-C Work Phone: [facility] 05-10-2022 16:40-0500 Systolic blood pressure 118 mm[Hg] NA Leyva PA-C Work Phone: [facility] 04-19-2022 09:47-0500 Body temperature 97.81 [degF] Shin Arias DO Work Phone: [facility] 04-19-2022 09:47-0500 Body weight 61.24 kg Shin Arias DO Work Phone: [facility] 04-19-2022 09:47-0500 Diastolic blood pressure 80 mm[Hg] Shin Arias DO Work Phone: [facility] 04-19-2022 09:47-0500 Heart rate 64 /min Shin Arias DO Work Phone: [facility] 04-19-2022 09:47-0500 Respiratory rate 16 /min Shin Arias DO Work Phone: [facility] 04-19-2022 09:47-0500 Systolic blood pressure 138 mm[Hg] Shin Arias DO Work Phone: [facility] 01-21-2022 12:03-0400 Body height 158.8 cm Shin Arias DO Work Phone: [facility] 01-21-2022 12:03-0400 Body temperature 98.2 [degF] Shin Arias DO Work Phone: [facility] 01-21-2022 12:03-0400 Body weight 61.24 kg Shin Arias DO Work Phone: [facility] 01-21-2022 12:03-0400 Diastolic blood pressure 70 mm[Hg] Shin Arias DO Work Phone: [facility] 01-21-2022 12:03-0400 Heart rate 76 /min Shin Arias DO Work Phone: [facility] 01-21-2022 12:03-0400 Respiratory rate 16 /min Shin Arias DO Work Phone: [facility] 01-21-2022 12:03-0400 Systolic blood pressure 120 mm[Hg] Shin Arias DO Work Phone: [facility] 10-22-2021 16:03-0400 Body temperature 98.91 [degF] Shin Arias DO Work Phone: [facility] 10-22-2021 16:03-0400 Body weight 60.78 kg Shin Arias DO Work Phone: [facility] 10-22-2021 16:03-0400 Diastolic blood pressure 60 mm[Hg] Shin Arias DO Work Phone: [facility] 10-22-2021 16:03-0400 Heart rate 64 /min Shin Arias DO Work Phone: [facility] 10-22-2021 16:03-0400 Respiratory rate 16 /min Shin Arias DO Work Phone: [facility] 10-22-2021 16:03-0400 Systolic blood pressure 120 mm[Hg] Shin Reavesrison DO Work Phone: [facility] Encounters Encounter Date Encounter Type Care Provider Facility Start: 01-01-2024 End: 01-02-2024 Refill Shin Arias DO Work Phone: [facility] [place] Comment on above: Refill Request Start: 11-07-2023 End: 11-07-2023 ambulatory LAURYN HARE Facility:[facility] Start: 10-25-2023 Telephone encounter Shin steiner DO Work Phone: [facility] [place] Comment on above: Orders Start: 10-23-2023 Refill Shin ortiz DO Work Phone: [facility] [place] Comment on above: Refill Request Start: 10-21-2023 End: 10-21-2023 Patient encounter procedure Shin Arias DO Work Phone: [facility] [place] Comment on above: HERNAN (obstructive sle ep apnea) (Primary Dx); Hypothyroidism, unspecified type; Gait disorder; Anxiety with depression; Mood disorder (HCC); S/P foot surgery, right; Hallux valgus, bilateral Start: 10-21-2023 End: 10-21-2023 ambulatory SHIN ARIAS Facility:[facility] Start: 10-20-2023 Telephone encounter Shin steiner DO Work Phone: [facility] Comment on above: Fax over OV notes an d Updated Orders Start: 10-18-2023 ambulatory Shin Arias Facilit y:[facility] Start: 07-15-2023 Telephone encounter Shin Huber arrison DO Work Phone: [facility] Start: 07-14-2023 End: 07-14-2023 ambulatory SHIN L ARIAS Facility:[facility] Start: 07-14-2023 End: 07-14-2023 ambulatory SHIN L ARIAS Facility:[facility] Start: 07-06-2023 Telephone encounter Shin Huber arrison DO Work Phone: [facility] Start: 06-23-2023 Refill Shin L Garri son DO Work Phone: [facility] Comment on above: Refill Request Start: 06-20-2023 ambulatory Shin Reavesrison Facilit y:[facility] Start: 06-20-2023 End: 06-20-2023 ambulatory Shin Arias Facility:[facility] Start: 05-17-2023 ambulatory Shin L Garri son DO Work Phone: Internal Medicine [facility] Start: 05-04-2023 ambulatory Pcp (Historical[facility] Start: 05-03-2023 End: 05-03-2023 ambulatory SHIN L ARIAS Facility:[facility] Start: 04-11-2023 Refill Shin L Garri son DO Work Phone: [facility] Comment on above: Refill Request Start: 02-16-2023 Refill Shin L Garri son DO Work Phone: [facility] Comment on above: Refill Request Start: 01-26-2023 Telephone encounter Lida Garcia APRN.CNP Work Phone: [facility] Comment on above: Results Start: 01-25-2023 End: 01-25-2023 ambulatory SHIN L ARIAS Facility:[facility] Start: 01-25-2023 End: 01-25-2023 Patient encounter procedure Chris Rendon MD Work Phone: [facility] Comment on above: Sore throat (Primary Dx); Influenza-like illness Start: 12-26-2022 End: 12-26-2022 Patient encounter procedure Alivia Leyva HUSSAIN Work Phone: [facility] [place] Comment on above: Situational insomnia ; Anxiety with depression Start: 12-26-2022 End: 12-26-2022 ambulatory [facility] Facility:[facility] Start: 12-24-2022 Refill Shin ortiz DO Work Phone: [facility] [place] Comment on above: Refill Request Start: 11-25-2022 End: 11-25-2022 ambulatory [facility] Facility:[facility] Start: 11-25-2022 End: 11-25-2022 Patient encounter procedure Alivia Randhawawhitney NIXON Work Phone: [facility] [place] Comment on above: Adjustment insomnia (Primary Dx); Anxiety with depression; Hx of ischemic vertebrobasilar artery cerebellar stroke Start: 10-19-2022 End: 10-19-2022 Patient encounter procedure Shin Arias DO Work Phone: [facility] [place] Comment on above: Elevated ferritin (P rimary Dx); Rash and nonspecific skin eruption; Elevated alkaline phosphatase level; Dermatitis contact; Hypothyroidism, unspecified type; Dyslipidemia; Mood disorder (HCC); Fatigue, unspecified type; Hyperglycemia Start: 09-30-2022 Refill Shin Preston angel DO Work Phone: [facility] [place] Comment on above: Refill Request Start: 08-10-2022 End: 08-10-2022 Patient encounter procedure Shin Arias DO Work Phone: [facility] [place] Comment on above: Dermatitis contact ( Primary Dx); Hypothyroidism, unspecified type Start: 08-09-2022 Telephone encounter Shin steiner DO Work Phone: [facility] [place] Comment on above: Appointment Start: 08-03-2022 Telephone encounter Shin steiner DO Work Phone: [facility] [place] Comment on above: Results Medication Problem Start: 07-22-2022 Telephone encounter Shin steiner DO Work Phone: [facility] [place] Comment on above: Results Start: 07-20-2022 End: 07-20-2022 ambulatory [facility] Work Phone: [facility] Comment on above: Spirometry Start: 07-20-2022 End: 07-20-2022 Patient encounter procedure [facility] Work Phone: [place] [facility] Start: 07-19-2022 Telephone encounter Shin steiner DO Work Phone: [facility] [place] Comment on above: Medication Question Start: 07-19-2022 End: 07-19-2022 Patient encounter procedure Shin Arias DO Work Phone: [facility] [place] Comment on above: Dyslipidemia (Primar y Dx); Hair thinning; Fatigue, unspecified type; Tendinitis of right ankle; SOB (shortness of breath); Hypothyroidism, unspecified type; Screening for colon cancer; Concentration deficit; Anxiety with depression Start: 06-21-2022 Refill Shin ortiz DO Work Phone: [facility] [place] Comment on above: Refill Request Start: 06-17-2022 Refill Shin ortiz DO Work Phone: [facility] Comment on above: Refill Request Start: 06-07-2022 Telephone encounter Jossy ortiz MANAGED CARE PROVIDER.SCIENCE WRITER Work Phone: [facility] Comment on above: Results Start: 06-06-2022 End: 06-06-2022 Patient encounter procedure Jossy Gustafson MANAGED CARE PROVIDER.SCIENCE WRITER Work Phone: [facility] Comment on above: Right ankle swelling (Primary Dx); Encounter for screening for osteoporosis; Encounter for screening mammogram for malignant neoplasm of breast Start: 05-19-2022 End: 05-19-2022 Patient encounter procedure Alivia Leyva PA-C Work Phone: [facility] Comment on above: Flu-like symptoms (P rimary Dx); Elevated alkaline phosphatase level Start: 05-17-2022 Refill Shin ortiz DO Work Phone: [facility] Comment on above: Refill Request Start: 05-11-2022 Telephone encounter Shin steiner DO Work Phone: [facility] Comment on above: requesting orders fo r stress test Start: 05-10-2022 End: 05-10-2022 Refill Shin Arias DO Work Phone: [facility] Comment on above: Refill Request Vasovagal symptom (P rimary Dx); Elevated alkaline phosphatase level; Hypothyroidism, unspecified type; Hyperglycemia; Mood disorder (HCC); Anxiety with depression; Hx of ischemic vertebrobasilar artery cerebellar stroke; Occlusion and stenosis of right vertebral artery; Stenosis of left vertebral artery Start: 05-03-2022 Telephone encounter Shin steiner DO Work Phone: [facility] Comment on above: Results; Appointment Start: 04-19-2022 End: 04-19-2022 Patient encounter procedure Shin Arias DO Work Phone: [facility] Comment on above: Vitamin B12 deficien cy (Primary Dx); Vitamin D deficiency; Dyslipidemia; Hypothyroidism, unspecified type; Elevated alkaline phosphatase level; Chronic right shoulder pain; Chronic pain of right ankle Start: 03-15-2022 Refill Shin ortiz DO Work Phone: [facility] Comment on above: Refill Request Start: 01-21-2022 End: 01-21-2022 Patient encounter procedure Shin Arias DO Work Phone: [facility] Comment on above: Age-related cataract of both eyes, unspecified age-related cataract type (Primary Dx); Double vision; Vitamin B12 deficiency; Vitamin D deficiency; Hypothyroidism, unspecified type; Dyslipidemia; Hyperglycemia; Anxiety with depression Start: 01-19-2022 Refill Shin ortiz DO [facility] Comment on above: Refill Request Start: 12-31-2021 Refill Jossy monae APRN.SCIENCE WRITER Work Phone: [facility] Comment on above: Refill Request Start: 11-25-2021 Refill Shin ortiz DO Work Phone: [facility] Comment on above: Refill Request Start: 11-10-2021 ambulatory Shin ortiz DO Work Phone: [facility] [place] Start: 10-22-2021 End: 10-22-2021 Patient encounter procedure Shin Arias DO Work Phone: [facility] [place] Comment on above: Anxiety with depress ion (Primary Dx); Mood disorder (HCC); Concentration deficit; Hypothyroidism, unspecified type; Vitamin B12 deficiency; Vitamin D deficiency; Fatigue, unspecified type; Dyslipidemia Start: 10-08-2021 Refill Shin ortiz DO Work Phone: [facility] Comment on above: Refill Request Start: 09-06-2021 Refill Shin ortiz DO Work Phone: [facility] [place] Comment on above: Refill Request Start: 08-09-2021 Refill Jossy monae MANAGED CARE PROVIDER.SCIENCE WRITER Work Phone: [facility] Start: 07-29-2021 ambulatory SAID A ATWAY Facility:[facility] Start: 07-29-2021 End: 07-29-2021 Office outpatient new 30 minutes Said A Atway DPM Work Phone: [facility] Comment on above: Bilateral foot pain (Primary Dx) Start: 07-22-2021 ambulatory SHIN ARIAS Facil ity:[facility] Start: 06-28-2021 Telephone encounter Shin steiner DO Work Phone: [facility] Comment on above: Medication Problem Start: 07-25-2018 Patient encounter status Aleah Chahal MANAGED CARE PROVIDER.SCIENCE WRITER Work Phone: [facility] Work Phone: Start: 08-17-2017 Ambulatory SHIN SCHWARTZ Facil ity:[facility] Procedures Date Procedure Procedure Detail Performing Clinician Start: 01-25-2023 COVID & INFLUENZA A/ B NAAT, ROUTINE Chris J Rendon MD Work Phone: Start: 01-25-2023 STREP A MOLECULAR (POC) Latanya Seaman PA-C Work Phone: Start: 10-14-2022 Lipid 1996 panel - S zen or Plasma Chris Rendon MD Work Phone: Start: 07-20-2022 Brncdilat rspse spmt ry pre&post-brncdilat admn Shin L Arias DO Work Phone: Start: 05-19-2022 COVID WITH FLUA+B, ROUTINE M Thien Leyva PA-C Work Phone: Start: 11-20-2018 Mammography Jossy Zur awick MANAGED CARE PROVIDER.SCIENCE WRITER Work Phone: Start: 10-01-2018 Lipid 1996 panel - S zen or Plasma Said Atway DPM Work Phone: Plan of Treatment Date Care Activity Detail Author Start: 10-22-2029 Urine microalbumin profile DTa P,Tdap,Td Vaccine (3 - Td or Tdap) [facility] Start: 10-15-2027 Lipid 1996 panel - S zen or Plasma Lipid Screening [facility] Start: 10-15-2027 Lipid panel Lipid Screening [facility] Start: 10-15-2027 LIPID SCREEN LIPID SCREEN [facility] Start: 07-21-2027 LIPID SCREEN LIPID SCREEN [facility] Start: 04-19-2027 LIPID SCREEN LIPID SCREEN [facility] Start: 01-28-2027 LIPID SCREEN LIPID SCREEN [facility] Start: 10-26-2026 LIPID SCREEN LIPID SCREEN [facility] Start: 06-30-2026 LIPID SCREEN LIPID SCREEN [facility] Start: 10-14-2025 DIABETES SCREEN DIABETES SCREEN [facility] Start: 10-14-2025 Diabetes Screening Diabetes Screenin g [facility] Start: 07-20-2025 DIABETES SCREEN DIABETES SCREEN [facility] Start: 04-19-2025 DIABETES SCREEN DIABETES SCREEN [facility] Start: 01-28-2025 DIABETES SCREEN DIABETES SCREEN [facility] Start: 10-26-2024 DIABETES SCREEN DIABETES SCREEN [facility] Start: 10-20-2024 Annual PCP Team Hematology Nurse paulie Disease Visit Annual PCP Team Chronic Disease Visit [facility] Start: 07-13-2024 Annual PCP Team Hematology Nurse paulie Disease Visit Annual PCP Team Chronic Disease Visit [facility] Start: 06-30-2024 DIABETES SCREEN DIABETES SCREEN [facility] Start: 05-03-2024 Annual PCP Team Hematology Nurse paulie Disease Visit Annual PCP Team Chronic Disease Visit [facility] Start: 05-03-2024 Covid-19 Vaccine (#1) Covid-19 Vacci ne (#1) [facility] Comment on above: Postponed from 03/12 (Declined at this time) Start: 05-03-2024 Covid-19 Vaccine () Covid-19 Vaccine () [facility] Comment on above: Postponed from 01/13 (Declined at this time) Start: 02-20-2024 End: 02-20-2024 Patient encounter procedure 02/20/2024 10:40 AM EDT Office Visit [facility] [place] [address] [place] [address] Shin Arias, DO [address] [facility], [place] [id number] Follow Up [facility] [place] Comment on above: Follow Up Start: 01-14-2024 Influenza vaccination [facility] [facility] Start: 12-27-2023 ANNUAL PCP TEAM TELECOM ANALYST PAULIE DISEASE VISIT ANNUAL PCP TEAM CHRONIC DISEASE VISIT [facility] Start: 11-29-2023 End: 11-29-2023 Patient encounter procedure 11/29/2023 12:40 PM EDT Office Visit Family Medicine [facility] [address] [place] [address] Shin Arias, DO [address] [facility], [place] [id number] Follow Up Family Medicine [place] Comment on above: Follow Up Start: 11-26-2023 ANNUAL PCP TEAM TELECOM ANALYST PAULIE DISEASE VISIT ANNUAL PCP TEAM CHRONIC DISEASE VISIT [facility] Start: 11-12-2023 Influenza vaccination Influenza Vacc ine (#1) [facility] Comment on above: Postponed from 01/13 (Declined at this time) Start: 10-21-2023 End: 10-21-2023 Patient encounter procedure 10/21/2023 10:40 AM EDT Office Visit Family Medicine [place] [address] [facility] [place] [address] Shin Arias DO [address] [facility] [place] [id number] discuss CPAP supplies, see phone note 10/20/23 Family Medicine [place] Comment on above: discuss CPAP supplie s, see phone note 10/20/23 Start: 10-20-2023 ANNUAL PCP TEAM TELECOM ANALYST PAULIE DISEASE VISIT ANNUAL PCP TEAM CHRONIC DISEASE VISIT [facility] Start: 10-02-2023 [facility]: 08-11-2023 ANNUAL PCP TEAM TELECOM ANALYST PAULIE DISEASE VISIT ANNUAL PCP TEAM CHRONIC DISEASE VISIT [facility] Start: 07-29-2023 COLORECTAL CANCER SCREENING COLORECTAL CANCER SCREENING [facility] Start: 07-29-2023 FECAL OCCULT BLOOD FECAL OCCULT BLOO D [facility] Start: 07-29-2023 Screening for malign ant neoplasm of colon [facility] Start: 07-20-2023 ANNUAL PCP TEAM TELECOM ANALYST PAULIE DISEASE VISIT ANNUAL PCP TEAM CHRONIC DISEASE VISIT [facility] Start: 06-06-2023 ANNUAL PCP TEAM TELECOM ANALYST PAULIE DISEASE VISIT ANNUAL PCP TEAM CHRONIC DISEASE VISIT [facility] Start: 06-06-2023 Pneumococcal Vaccine : 65+ (1 - PCV) Pneumococcal Vaccine: 65+ (1 - PCV) [facility] Comment on above: Postponed from 09/10 (Declined at this time) Start: 06-06-2023 Pneumococcal Vaccine : 65+ (1 of 1 - PCV) Pneumococcal Vaccine: 65+ (1 of 1 - PCV) [facility] Comment on above: Postponed from 09/10 (Declined at this time) Start: 06-06-2023 PNEUMOCOCCAL: 65+ (1 - PCV) PNEUMOCOCCAL: 65+ (1 - PCV) [facility] Comment on above: Postponed from 09/10 (Declined at this time) Start: 06-06-2023 Urine microalbumin profile [facility] Comment on above: Postponed from 08/03 (Declined at this time) Start: 05-19-2023 ANNUAL PCP TEAM TELECOM ANALYST PAULIE DISEASE VISIT ANNUAL PCP TEAM CHRONIC DISEASE VISIT [facility] Start: 05-10-2023 ANNUAL PCP TEAM TELECOM ANALYST PAULIE DISEASE VISIT ANNUAL PCP TEAM CHRONIC DISEASE VISIT [facility] Start: 04-19-2023 ANNUAL PCP TEAM TELECOM ANALYST PAULIE DISEASE VISIT ANNUAL PCP TEAM CHRONIC DISEASE VISIT [facility] Start: 01-21-2023 ANNUAL PCP TEAM TELECOM ANALYST PAULIE DISEASE VISIT ANNUAL PCP TEAM CHRONIC DISEASE VISIT [facility] Start: 01-21-2023 COVID-19 VACCINE (#1) COVID-19 VACCI NE (#1) [facility] Comment on above: Postponed from 03/12 (Declined at this time) Start: 01-13-2023 Influenza vaccination [facility] Start: 11-11-2022 Influenza vaccination INFLUENZA (#1) [facility] Comment on above: Postponed from 01/13 (Declined at this time) Start: 10-22-2022 ANNUAL PCP TEAM TELECOM ANALYST PAULIE DISEASE VISIT ANNUAL PCP TEAM CHRONIC DISEASE VISIT [facility] Start: 07-19-2022 End: 09-18-2022 25-hydroxyvitamin D3 [Mass/volume] in Serum or Plasma VITAMIN D 25 HYDROXY Lab Routine Hair thinning Fatigue, unspecified type Expected: 07/19/2022, Expires: 09/18/2022 [facility] Work Phone: Comment on above: Expected: 07/19/2022 , Expires: 09/18/2022 Start: 07-19-2022 End: 09-18-2022 Ascorbate [Mass/volume] in Serum or Plasma VITAMIN C Lab Routine Hair thinning Fatigue, unspecified type Expected: 07/19/2022, Expires: 09/18/2022 [facility] Work Phone: Comment on above: Expected: 07/19/2022 , Expires: 09/18/2022 Start: 07-19-2022 End: 09-18-2022 CBC W Auto Differential panel - Blood CBC + DIFF Lab Routine SOB (shortness of breath) Expected: 07/19/2022, Expires: 09/18/2022 [facility] Work Phone: Comment on above: Expected: 07/19/2022 , Expires: 09/18/2022 Start: 07-19-2022 End: 09-18-2022 Cobalamin (Vitamin B12) [Mass/volume] in Serum or Plasma VITAMIN B12 BLOOD Lab Routine Hair thinning Fatigue, unspecified type Expected: 07/19/2022, Expires: 09/18/2022 [facility] Work Phone: Comment on above: Expected: 07/19/2022 , Expires: 09/18/2022 Start: 07-19-2022 End: 09-18-2022 Comprehensive metabolic 2000 panel - Serum or Plasma COMP METABOLIC PANEL Lab Routine SOB (shortness of breath) Expected: 07/19/2022, Expires: 09/18/2022 [facility] Work Phone: Comment on above: Expected: 07/19/2022 , Expires: 09/18/2022 Start: 07-19-2022 End: 09-18-2022 Ferritin [Mass/volume] in Serum or Plasma FERRITIN BLD Lab Routine SOB (shortness of breath) Expected: 07/19/2022, Expires: 09/18/2022 [facility] Work Phone: Comment on above: Expected: 07/19/2022 , Expires: 09/18/2022 Start: 07-19-2022 End: 09-18-2022 Iron and Iron binding capacity panel - Serum or Plasma IRON + TIBC Lab Routine SOB (shortness of breath) Expected: 07/19/2022, Expires: 09/18/2022 [facility] Work Phone: Comment on above: Expected: 07/19/2022 , Expires: 09/18/2022 Start: 07-19-2022 End: 09-18-2022 Lipid 1996 panel - Serum or Plasma LIPID PANEL BASIC Lab Routine Dyslipidemia Expected: 07/19/2022, Expires: 09/18/2022 [facility] Work Phone: Comment on above: Expected: 07/19/2022 , Expires: 09/18/2022 Start: 07-19-2022 End: 09-18-2022 Magnesium [Mass/volume] in Serum or Plasma MAGNESIUM BLD Lab Routine Hair thinning Fatigue, unspecified type Expected: 07/19/2022, Expires: 09/18/2022 [facility] Work Phone: Comment on above: Expected: 07/19/2022 , Expires: 09/18/2022 Start: 07-19-2022 End: 09-18-2022 Thyrotropin [Units/volume] in Serum or Plasma TSH BLD Lab Routine Hypothyroidism, unspecified type Expected: 07/19/2022, Expires: 09/18/2022 [facility] Work Phone: Comment on above: Expected: 07/19/2022 , Expires: 09/18/2022 Start: 07-19-2022 End: 09-18-2022 Thyroxine (T4) free [Mass/volume] in Serum or Plasma T4 FREE/FREE THYROX Lab Routine Hypothyroidism, unspecified type Expected: 07/19/2022, Expires: 09/18/2022 [facility] Work Phone: Comment on above: Expected: 07/19/2022 , Expires: 09/18/2022 Start: 07-19-2022 End: 09-18-2022 Triiodothyronine (T3) Free [Mass/volume] in Serum or Plasma T3 FREE BLD Lab Routine Hypothyroidism, unspecified type Expected: 07/19/2022, Expires: 09/18/2022 [facility] Work Phone: Comment on above: Expected: 07/19/2022 , Expires: 09/18/2022 Start: 06-23-2022 ANNUAL PCP TEAM TELECOM ANALYST PAULIE DISEASE VISIT ANNUAL PCP TEAM CHRONIC DISEASE VISIT [facility] Start: 05-15-2022 ADVANCE DIRECTIVE DISCUSSION ADVANCE DIRECTIVE DISCUSSION [facility] Start: 04-19-2022 End: 06-19-2022 ALK PHOS ISOENZYM BL [facility] Work Phone: Comment on above: Expected: 04/19/2022 , Expires: 06/19/2022 Start: 04-19-2022 End: 06-19-2022 Comprehensive metabolic 2000 panel - Serum or Plasma [facility] Work Phone: Comment on above: Expected: 04/19/2022 , Expires: 06/19/2022 Start: 04-19-2022 End: 06-19-2022 Lipid 1996 panel - Serum or Plasma [facility] Work Phone: Comment on above: Expected: 04/19/2022 , Expires: 06/19/2022 Start: 04-19-2022 End: 06-19-2022 Thyrotropin [Units/volume] in Serum or Plasma [facility] Work Phone: Comment on above: Expected: 04/19/2022 , Expires: 06/19/2022 Start: 04-19-2022 End: 06-19-2022 Thyroxine (T4) free [Mass/volume] in Serum or Plasma [facility] Work Phone: Comment on above: Expected: 04/19/2022 , Expires: 06/19/2022 Start: 04-19-2022 End: 06-19-2022 Triiodothyronine (T3) Free [Mass/volume] in Serum or Plasma [facility] Work Phone: Comment on above: Expected: 04/19/2022 , Expires: 06/19/2022 Start: 01-21-2022 End: 03-23-2022 25-hydroxyvitamin D3 [Mass/volume] in Serum or Plasma VITAMIN D 25 HYDROXY Lab Routine Vitamin D deficiency Expected: 01/21/2022, Expires: 03/23/2022 [facility] Work Phone: Comment on above: Expected: 01/21/2022 , Expires: 03/23/2022 Start: 01-21-2022 End: 03-23-2022 CBC W Auto Differential panel - Blood CBC + DIFF Lab Routine Hypothyroidism, unspecified type Expected: 01/21/2022, Expires: 03/23/2022 [facility] Work Phone: Comment on above: Expected: 01/21/2022 , Expires: 03/23/2022 Start: 01-21-2022 End: 03-23-2022 Cobalamin (Vitamin B12) [Mass/volume] in Serum or Plasma VITAMIN B12 BLOOD Lab Routine Vitamin B12 deficiency Expected: 01/21/2022, Expires: 03/23/2022 [facility] Work Phone: Comment on above: Expected: 01/21/2022 , Expires: 03/23/2022 Start: 01-21-2022 End: 03-23-2022 Comprehensive metabolic 2000 panel - Serum or Plasma COMP METABOLIC PANEL Lab Routine Hypothyroidism, unspecified type Expected: 01/21/2022, Expires: 03/23/2022 [facility] Work Phone: Comment on above: Expected: 01/21/2022 , Expires: 03/23/2022 Start: 01-21-2022 End: 03-23-2022 Hemoglobin A1c in Blood HGB A1C Lab Routine Hyperglycemia Expected: 01/21/2022 (Approximate), Expires: 03/23/2022 [facility] Work Phone: Comment on above: Expected: 01/21/2022 (Approximate), Expires: 03/23/2022 Start: 01-21-2022 End: 03-23-2022 Lipid 1996 panel - Serum or Plasma LIPID PANEL BASIC Lab Routine Dyslipidemia Expected: 01/21/2022, Expires: 03/23/2022 [facility] Work Phone: Comment on above: Expected: 01/21/2022 , Expires: 03/23/2022 Start: 01-21-2022 End: 03-23-2022 Magnesium [Mass/volume] in Serum or Plasma MAGNESIUM BLD Lab Routine Hypothyroidism, unspecified type Expected: 01/21/2022, Expires: 03/23/2022 [facility] Work Phone: Comment on above: Expected: 01/21/2022 , Expires: 03/23/2022 Start: 01-21-2022 End: 03-23-2022 THYROID PEROXIDASE ANTIBODY BLOOD THYROID PEROXIDASE ANTIBODY BLOOD Lab Routine Hypothyroidism, unspecified type Expected: 01/21/2022, Expires: 03/23/2022 [facility] Work Phone: Comment on above: Expected: 01/21/2022 , Expires: 03/23/2022 Start: 01-21-2022 End: 03-23-2022 Thyrotropin [Units/volume] in Serum or Plasma TSH BLD Lab Routine Hypothyroidism, unspecified type Expected: 01/21/2022, Expires: 03/23/2022 [facility] Work Phone: Comment on above: Expected: 01/21/2022 , Expires: 03/23/2022 Start: 01-21-2022 End: 03-23-2022 Thyroxine (T4) free [Mass/volume] in Serum or Plasma T4 FREE/FREE THYROX Lab Routine Hypothyroidism, unspecified type Expected: 01/21/2022, Expires: 03/23/2022 [facility] Work Phone: Comment on above: Expected: 01/21/2022 , Expires: 03/23/2022 Start: 01-21-2022 End: 03-23-2022 Triiodothyronine (T3) Free [Mass/volume] in Serum or Plasma T3 FREE BLD Lab Routine Hypothyroidism, unspecified type Expected: 01/21/2022, Expires: 03/23/2022 [facility] Work Phone: Comment on above: Expected: 01/21/2022 , Expires: 03/23/2022 Start: 01-13-2022 Influenza vaccination [facility] Start: 11-11-2021 Influenza vaccination INFLUENZA (#1) [facility] Comment on above: Postponed from 01/13 (Declined at this time) Start: 10-23-2021 End: 12-23-2021 25-hydroxyvitamin D3 [Mass/volume] in Serum or Plasma VITAMIN D 25 HYDROXY Lab Routine Vitamin D deficiency Fatigue, unspecified type Expected: 10/23/2021, Expires: 12/23/2021 [facility] Work Phone: Comment on above: Expected: 10/23/2021 , Expires: 12/23/2021 Start: 10-23-2021 End: 12-23-2021 CBC W Auto Differential panel - Blood CBC + DIFF Lab Routine Fatigue, unspecified type Expected: 10/23/2021, Expires: 12/23/2021 [facility] Work Phone: Comment on above: Expected: 10/23/2021 , Expires: 12/23/2021 Start: 10-23-2021 End: 12-23-2021 Cobalamin (Vitamin B12) [Mass/volume] in Serum or Plasma VITAMIN B12 BLOOD Lab Routine Vitamin B12 deficiency Fatigue, unspecified type Expected: 10/23/2021, Expires: 12/23/2021 [facility] Work Phone: Comment on above: Expected: 10/23/2021 , Expires: 12/23/2021 Start: 10-23-2021 End: 12-23-2021 Comprehensive metabolic 2000 panel - Serum or Plasma COMP METABOLIC PANEL Lab Routine Fatigue, unspecified type Expected: 10/23/2021, Expires: 12/23/2021 [facility] Work Phone: Comment on above: Expected: 10/23/2021 , Expires: 12/23/2021 Start: 10-23-2021 End: 12-23-2021 Lipid 1996 panel - Serum or Plasma LIPID PANEL BASIC Lab Routine Dyslipidemia Expected: 10/23/2021, Expires: 12/23/2021 [facility] Work Phone: Comment on above: Expected: 10/23/2021 , Expires: 12/23/2021 Start: 10-23-2021 End: 12-23-2021 Thyrotropin [Units/volume] in Serum or Plasma TSH BLD Lab Routine Hypothyroidism, unspecified type Fatigue, unspecified type Expected: 10/23/2021, Expires: 12/23/2021 [facility] Work Phone: Comment on above: Expected: 10/23/2021 , Expires: 12/23/2021 Start: 10-23-2021 End: 12-23-2021 Thyroxine (T4) free [Mass/volume] in Serum or Plasma T4 FREE/FREE THYROX Lab Routine Hypothyroidism, unspecified type Fatigue, unspecified type Expected: 10/23/2021, Expires: 12/23/2021 [facility] Work Phone: Comment on above: Expected: 10/23/2021 , Expires: 12/23/2021 Start: 10-23-2021 End: 12-23-2021 Triiodothyronine (T3) Free [Mass/volume] in Serum or Plasma T3 FREE BLD Lab Routine Hypothyroidism, unspecified type Fatigue, unspecified type Expected: 10/23/2021, Expires: 12/23/2021 [facility] Work Phone: Comment on above: Expected: 10/23/2021 , Expires: 12/23/2021 Start: 05-15-2021 ADVANCE DIRECTIVE DISCUSSION ADVANCE DIRECTIVE DISCUSSION [facility] Start: 04-07-2021 COLORECTAL CANCER SCREENING COLORECTAL CANCER SCREENING [facility] Start: 04-07-2021 FECAL OCCULT BLOOD FECAL OCCULT BLOO D [facility] Start: 09-10-2020 BONE DENSITY BONE DENSITY [facility] Start: 09-10-2020 Bone Density Screening Bone Density Screening [facility] Start: 09-10-2020 Pneumococcal vaccination PNEUM OCOCCAL VACCINE SERIES (1 of 1 - PPSV23) [facility] Start: 09-10-2020 Pneumococcal Vaccine : 65+ (1 of 1 - PCV) Pneumococcal Vaccine: 65+ (1 of 1 - PCV) [facility] Start: 09-10-2020 PNEUMOCOCCAL: 65+ (1 - PCV) PNEUMOCOCCAL: 65+ (1 - PCV) [facility] Start: 09-10-2020 PNEUMOVAX AGE 65 AND OVER WITH 5YR LOOKBACK (#1) PNEUMOVAX AGE 65 AND OVER WITH 5YR LOOKBACK (#1) [facility] Start: 09-10-2020 Screening for osteoporosis Bone Dens ity Screening [facility] Start: 08-03-2020 Urine microalbumin profile DTA P,TDAP,TD (2 - Td or Tdap) [facility] Start: 11-21-2019 Mammography [facility] Start: 11-21-2019 Screening for malign ant neoplasm of breast Mammogram Screening [facility] Start: 10-02-2019 Thyroid stimulating hormone measurement TSH [facility] Start: 2015 RSV Vaccine (1 - 1-d ose 60+ series) RSV Vaccine (1 - 1-dose 60+ series) [facility] Start: 09-10-2005 SHINGRIX VACCINE (1 of 2) HAIRSTON GRIX VACCINE (1 of 2) [facility] Start: 09-10-2005 Zoster vaccine hzv l rafy for subcutaneous use ZOSTER (SHINGLES) VACCINE (1 of 2) [facility] Start: 09-10-2000 COLOGUARD (FIT-DNA) COLOGUARD (FIT-D NA) [facility] Start: 09-10-2000 Colonoscopy [facility] Start: 09-10-[address] [facility] Start: 09-10-2000 Screening for malign ant neoplasm of colon [facility] Start: 09-10-2000 SIGMOIDOSCOPY SIGMOIDOSCOPY [facility] Start: 1995 Screening mammography MAMMOGRA M SCREENING DISCUSSION [facility] Start: 09-10-1976 Screening for malign ant neoplasm of cervix CERVICAL CANCER SCREENING DISCUSSION [facility] Start: 09-10-1974 Third diphtheria, te tanus and acellular pertussis (DTaP) vaccination TDAP (ADULT) [facility] Start: 09-10-1973 HIV SCREENING HIV SCREENING [facility] Start: 09-10-1973 Tetanus vaccination TETANUS [facility] Start: 09-10-1960 COVID-19 VACCINE (#1) COVID-19 VACCI NE (#1) [facility] Start: 09-10-1960 COVID-19 VACCINE (1) COVID-19 VACCIN E (1) [facility] Start: 03-12-1956 COVID-19 VACCINE (#1) COVID-19 VACCI NE (#1) [facility] Start: 1955 Hepatitis C antibody , confirmatory test HEPATITIS C VIRUS SCREENING [facility] Start: 1955 Screening for osteoporosis DEXA SCAN DISCUSSION [facility] End: 07-06-2023 DXA-AXIAL SKELETON DXA-AXIAL SKELETON Radiology Routine Encounter for screening for osteoporosis 1 Occurrences starting 06/06/2022 until 07/06/2023 [facility] Work Phone: Comment on above: 1 Occurrences starti ng 06/06/2022 until 07/06/2023 Hemoglobin.gastroint estina l.lower [Presence] in Stool by Immunoassay FECAL OCCULT BLOOD TEST Lab Routine Screening for colon cancer Ordered: 07/19/2022 [facility] Work Phone: Comment on above: Ordered: 07/19/2022 End: 08-18-2023 LUNG VOLUMES LUNG VOLUMES PFT Routine SOB (shortness of breath) 1 Occurrences starting 07/19/2022 until 08/18/2023 [facility] Work Phone: Comment on above: 1 Occurrences starti ng 07/19/2022 until 08/18/2023 LUNG VOLUMES LUNG VOLUMES PFT Routine SOB (shortness of breath) 07/20/2022 8:42 AM EST [facility] Work Phone: End: 07-06-2023 MANDO SCREENING MANDO SCREENING Radiology Routine Encounter for screening mammogram for malignant neoplasm of breast 1 Occurrences starting 06/06/2022 until 07/06/2023 [facility] Work Phone: Comment on above: 1 Occurrences starti ng 06/06/2022 until 07/06/2023 End: 06-15-2024 MANDO SCREENING MANDO SCREENING Radiology Routine Encounter for screening mammogram for breast cancer 1 Occurrences starting 05/17/2023 until 06/15/2024 [facility] Work Phone: Comment on above: 1 Occurrences starti ng 05/17/2023 until 06/15/2024 End: 08-18-2023 Radiologic exam chest 2 views XR CHEST 2V FRONTAL/LAT Radiology Routine SOB (shortness of breath) 1 Occurrences starting 07/19/2022 until 08/18/2023 [facility] Work Phone: Comment on above: 1 Occurrences starti ng 07/19/2022 until 08/18/2023 End: 12-10-2022 Screening mammography bi 2-view breast inc cad MANDO SCREENING Radiology Routine Encounter for screening mammogram for breast cancer 1 Occurrences starting 11/10/2021 until 12/10/2022 [facility] Work Phone: Comment on above: 1 Occurrences starti ng 11/10/2021 until 12/10/2022 End: 08-18-2023 SPIROMETRY - BASELINE AND POST DILATOR SPIROMETRY - BASELINE AND POST DILATOR PFT Routine SOB (shortness of breath) 1 Occurrences starting 07/19/2022 until 08/18/2023 [facility] Work Phone: Comment on above: 1 Occurrences starti ng 07/19/2022 until 08/18/2023 SPIROMETRY - BASELIN E AND POST DILATOR SPIROMETRY - BASELINE AND POST DILATOR PFT Routine SOB (shortness of breath) 07/20/2022 8:42 AM EST [facility] Work Phone: End: 05-19-2023 STRESS ECHO TREADMILL STRESS ECHO TREADMILL Cardiology Routine Near syncope 1 Occurrences starting 05/19/2022 until 05/19/2023 [facility] Work Phone: Comment on above: 1 Occurrences starti ng 05/19/2022 until 05/19/2023 End: 06-02-2023 Us abdominal real time w/image limited US ABD RT UPPER QUADRANT Radiology Routine Elevated alkaline phosphatase level 1 Occurrences starting 05/03/2022 until 06/02/2023 [facility] Work Phone: Comment on above: 1 Occurrences starti ng 05/03/2022 until 06/02/2023 End: 07-06-2023 XR ANKLE GENERAL 3V AP/LAT/OBL RIGHT XR ANKLE GENERAL 3V AP/LAT/OBL RIGHT Radiology Routine Right ankle swelling 1 Occurrences starting 06/06/2022 until 07/06/2023 [facility] Work Phone: Comment on above: 1 Occurrences starti ng 06/06/2022 until 07/06/2023 XR ANKLE GENERAL 3V AP/LAT/OBL RIGHT XR ANKLE GENERAL 3V AP/LAT/OBL RIGHT Radiology Routine Right ankle swelling 06/06/2022 11:36 AM [facility] Work Phone: [facility] Immunizations Immunization Date Immunization Notes Care Provider Kareem sanders 03-24-2020 influenza, seasonal, injectable Jossy Chahal MANAGED CARE PROVIDERJOHN Work Phone: [facility] Work Phone: 03-24-2020 influenza virus vaccine, unspecified formulation Said Atway DPM Work Phone: [facility] 03-18-2020 influenza, seasonal, injectable [facility] Work Phone: 10-23-2019 tetanus toxoid, redu bianka diphtheria toxoid, and acellular pertussis vaccine, adsorbed [facility] Work Phone: 03-27-2019 influenza, seasonal, injectable [facility] Work Phone: 02-19-2019 influenza, seasonal, injectable 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 MANAGED CARE PROVIDER.SCIENCE WRITER Work Phone: [facility] Work Phone: 03-05-2018 influenza, seasonal, injectable [facility] Work Phone: 02-14-2018 influenza, seasonal, injectable 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 MANAGED CARE PROVIDER.SCIENCE WRITER Work Phone: [facility] Work Phone: 08-03-2010 tetanus toxoid, redu bianka diphtheria toxoid, and acellular pertussis vaccine, adsorbed 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 MANAGED CARE PROVIDER.[facility] Work Phone: [facility] Work Phone: Payers Date Payer Category Payer Self-pay [id number] 2023 Unknown [id number] 2022 Medicare [id number] 2021 Medicare [id number] 2021 Medicare HUMANA MEDICARE HUMANA GOLD PLUS [id number] 2021-Present [phone] [address] [address] [place] [address] O [id number] 2021 Medicare [id number] 2017 Unknown [id number] 1955 Unknown [id number] 1955 Unknown [id number] 1955 Unknown [id number] 1955 Unknown [id number] Medicare MEDICARE PART A B [id number] Unknown [id number] Unknown [employer] OTHER [id number] Unknown [employer] CO [id number] Unknown [facility] 9 [id number] Unknown [id number] Unknown [id number] Unknown [id number] Unknown [id number] Social History Date Type Detail Facility Start: 09-30-2018 End: 01-21-2022 Tobacco smoking status NHIS Ex-smoker [facility] Work Phone: Start: 02-13-1972 End: 05-15-1988 History of tobacco use Current smoker [facility] Work Phone: Start: 02-13-1972 End: 05-15-1988 History of tobacco use Cigarette Smoker [facility] Work Phone: Start: 06-23-2021 End: 07-14-2023 Alcohol intake Current non-drinker of alcohol (finding) [facility] Start: 1955 Sex Assigned At Not on file [facility] Start: 09-30-2018 End: 10-05-2022 Cigarettes smoked current (pack per day) - Reported 2 [facility] Start: 09-30-2018 End: 01-21-2022 Tobacco use and exposure Smokeless tobacco non-user [facility] Start: 07-19-2021 End: 01-21-2022 Exposure to SARS-CoV-2 (event) Not sure [facility] Start: 1955 Sex Assigned At Female [facility] Work Phone: Start: 10-05-2022 End: 11-25-2022 Tobacco use panel [facility] Adult Depression Screening Assessment 0 [facility] Medical Equipment Procedure Code Equipment Code Equipment Origin al Text Equipment Identifier Dates [id number] Implant - [id number] Start: 01-31-2012 Comment on above: Description: [id number] CREW Screw Bn 3.5mm 45mm Ti Harris - [id number] Start: 01-31-2012 Wire Fix .054in [address] - [id number] Start: 01-31-2012 Comment on above: Description: ONE .O5 4 KWIRE EXPLANTED Clinical Notes 11-04-2013 to 01-02-2024 Telephone Encounter - Martha Campos PA-C - 01/02/2024 1:27 PM EDTTelephone Encounter - Martha Campos PA-C - 01/02/2024 1:27 PM Shin Jaime DO - 10/23/2023 7:22 AM EDT Note Date & Type Note Facility 01-02-2024 Telephone encounter Note The following approved medication requests have been transmitted electronically. Requested Prescriptions Signed Prescriptions Disp Refills dextroamphetamine-amphetamine (ADDERALL) 10 mg tablet 30 tablet 0 Sig: Take 0.5-1 tablets by mouth once daily for 30 days. Authorizing Provider: MARTHA CAMPOS PA-C [facility] 01-02-2024 Miscellaneous Notes The following approved medication requests have been transmitted electronically. Requested Prescriptions Signed Prescriptions Disp Refills dextroamphetamine-amphetamine (ADDERALL) 10 mg tablet 30 tablet 0 Sig: Take 0.5-1 tablets by mouth once daily for 30 days. Authorizing Provider: MARTHA CAMPOS PA-C Prescription Refill Information The patient has been identified by name and date of : Yes Caregiver verified no other encounters exist for this prescription request: Yes Caregiver confirmed with patient/requestor that no other refills are due, in the near future, with this provider at this time: Yes The last office visit in the department: 11/07/23 Does the patient have a future office visit with this provider/department: Yes Requested Prescriptions Pending Prescriptions Disp Refills dextroamphetamine-amphetamine (ADDERALL) 10 mg tablet 90 tablet 0 Sig: Take 0.5-1 tablets by mouth once daily for 90 days. Corrine Peck January 01, 2024 9:47 AM documented in this encounter [facility] 01-01-2024 Telephone encounter Note Prescription Refill Information The patient has been identified by name and date of : Yes Caregiver verified no other encounters exist for this prescription request: Yes Caregiver confirmed with patient/requestor that no other refills are due, in the near future, with this provider at this time: Yes The last office visit in the department: 11/07/23 Does the patient have a future office visit with this provider/department: Yes Requested Prescriptions Pending Prescriptions Disp Refills dextroamphetamine-amphetamine (ADDERALL) 10 mg tablet 90 tablet 0 Sig: Take 0.5-1 tablets by mouth once daily for 90 days. Corrine Peck January 01, 2024 9:47 AM [facility] 10-26-2023 Telephone encounter Note Order and all information faxed to [facility] as requested. [facility] 10-26-2023 Miscellaneous Notes Order and all information faxed to [facility] as requested. Order printed and signed. In outbox. Please fax with notes. Thank you, Jossy Gustafson APRN.SCIENCE WRITER Patient calling asking if order for CPAP supplies had been faxed to [facility]. Patient said [facility] needs copy of office visit notes from 10/21/2023 visit and order faxed to [phone]. Pending order with diagnosis to file. Please advise documented in this encounter [facility] 10-26-2023 Telephone encounter Note Order printed and signed. In outbox. Please fax with notes. Thank you, Jossy Gustafson APRN.SCIENCE WRITER [facility] 10-25-2023 Telephone encounter Note Patient calling asking if order for CPAP supplies had been faxed to [facility]. Patient said [facility] needs copy of office visit notes from 10/21/2023 visit and order faxed to [phone]. Pending order with diagnosis to file. Please advise [facility] 10-23-2023 Telephone encounter Note Last script for vitamin D was sent to wrong pharmacy. Prescription Refill Information The patient has been identified by name and date of : Yes Caregiver verified no other encounters exist for this prescription request: Yes Caregiver confirmed with patient/requestor that no other refills are due, in the near future, with this provider at this time: Yes The last office visit in the department: 10/21/2023 Does the patient have a future office visit with this provider/department: Yes 11/13/2023 Requested Prescriptions Pending Prescriptions Disp Refills Cholecalciferol, Vitamin D3, 125 mcg (5,000 unit) cap 90 capsule 3 Sig: Take 1 capsule by mouth once daily. Kayla Schwarz LPN October 23, 2023 8:42 AM [facility] 10-23-2023 Miscellaneous Notes Last script for vitamin D was sent to [facility]. Prescription Refill Information The patient has been identified by name and date of : Yes Caregiver verified no other encounters exist for this prescription request: Yes Caregiver confirmed with patient/requestor that no other refills are due, in the near future, with this provider at this time: Yes The last office visit in the department: 10/21/2023 Does the patient have a future office visit with this provider/department: Yes 11/13/2023 Requested Prescriptions Pending Prescriptions Disp Refills Cholecalciferol, Vitamin D3, 125 mcg (5,000 unit) cap 90 capsule 3 Sig: Take 1 capsule by mouth once daily. Kalya Schwarz LPN October 23, 2023 8:42 AM documented in this encounter [facility] 10-23-2023 Note HNO ID: [id number] Author: SHIN ARIAS, DO Service: ? Author Type: Physician Type: Progress Notes Filed: 10/23/2023 07:32 Note Text: CC: Henry Oliveira is a 68 year old female who presents to the office for follow up HPI: She is overall doing well She is post operative from her right foot 1st MTP fusion surgery by [employer] Dr. Urias. She is in a walking boot with weight bearing now that is minimal. She is having follow up after recent CT for her foot to determine if she is getting adequate bone formation at the surgical site. Vitamin B12 and D deficiency, she is taking supplements. Has chronic fatigue but she feels some of her symptoms are still from her surgery and anesthesia. She is still off work post op from her [employer] job [employer], she has been compliant with her CPAP/Bipap. She is going to trial a few masks to see what seems to fit best at this time with weight fluctuations. She is going to be changing to [employer] at this time. She uses the mask/machine and gives her benefit for her sleep and wellness in the morning and daytime PAST MEDICAL HISTORY Diagnosis Date Abnormal glandular Papanicolaou smear of cervix Abn. Pap smear (cervix) Asymptomatic varicose veins Depressive disorder, not elsewhere classified 09/27/2006 Hearing decreased Hyperlipidemia Hypothyroidism 2010 HERNAN on CPAP DME [facility] Peripheral vascular disease, unspecified (HCC) varicose veins [...] cuff repair Current Outpatient Medications Medication Sig ARMOUR THYROID 60 mg tablet Take 1 tablet by mouth once daily. dextroamphetamine-amphetamine (ADDERALL) 10 mg tablet Take 0.5-1 tablets by mouth once daily for 90 days. traZODone (DESYREL) 50 mg tablet TAKE 1 TO 2 TABLETS AT BEDTIME FOR SLEEP FLUoxetine (PROZAC) 10 mg capsule Take 1 capsule by mouth once daily. mometasone (ELOCON) 0.1 % ointment Apply to affected area once daily as needed. Once daily as needed on rash mupirocin (BACTROBAN) 2 % ointment Apply to affected area twice daily as needed (skin infection). omega 2-gor-yxd-fish oil (FISH OIL) 100-160-1,000 mg cap Take [...] mouth one time only for 1 dose. No current facility-administered medications for this visit. [...] use: No ROS: See HPI PE: BP 120/68 Pulse 76 Temp (Src) 97.3 (Left Tympanic) Resp 16 Wt 122 lb (55.3kg) LMP 10/13/2006 Gen: AANDOX3, NAD, non-toxic appearing HEENT: PERRLA, EOMs intact b/l, nares without drainage, pharynx without erythema, exudate, lesions, or drainage. Uvula midline. Neck: No LAD, no thyromegaly, no meningismus. CV: RRR, no murmur Lungs: CTA b/l, no wheezing Skin: No rashes, lesions, or wounds on exposed skin. 1st MTP joint dorsal incision appears to be healed well Gait is slowed but stable No edema legs, normal peripheral pulses ASSESSMENT/PLAN: 1. HERNAN (obstructive sleep apnea) - ICD9: 327.23, ICD10: G47.33 (primary diagnosis) Use of CPAP/Bipap as directed, fax new order to [facility], she is in compliance 1. Hypothyroidism, unspecified type - ICD9: 244.9, ICD1 (more content not included)... [facility] 10-23-2023 History of Present illness Narrative CC: Henry Oliveira is a 68 year old female who presents to the office for follow up HPI: She is overall doing well She is post operative from her right foot 1st MTP fusion surgery by [employer] Dr. Urias. She is in a walking boot with weight bearing now that is minimal. She is having follow up after recent CT for her foot to determine if she is getting adequate bone formation at the surgical site. Vitamin B12 and D deficiency, she is taking supplements. Has chronic fatigue but she feels some of her symptoms are still from her surgery and anesthesia. 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 She is going to trial a few masks to see what seems to fit best at this time with weight fluctuations. She is going to be changing to [employer] at this time. She uses the mask/machine and gives her benefit for her sleep and wellness in the morning and daytime PAST MEDICAL HISTORY Diagnosis Date Abnormal glandular Papanicolaou smear of cervix Abn. Pap smear (cervix) Asymptomatic varicose veins Depressive disorder, not elsewhere classified 09/27/2006 Hearing decreased Hyperlipidemia Hypothyroidism 2010 [facility] on CPAP [facility] Peripheral vascular disease, unspecified (HCC) varicose [...] cuff repair Current Outpatient Medications Medication Sig ARMOUR THYROID 60 mg tablet Take 1 tablet by mouth once daily. dextroamphetamine-amphetamine (ADDERALL) 10 mg tablet Take 0.5-1 tablets by mouth once daily for 90 days. traZODone (DESYREL) 50 mg tablet TAKE 1 TO 2 TABLETS AT BEDTIME FOR SLEEP FLUoxetine (PROZAC) 10 mg capsule Take 1 capsule by mouth once daily. mometasone (ELOCON) 0.1 % ointment Apply to affected area once daily as needed. Once daily as needed on rash mupirocin (BACTROBAN) 2 % ointment Apply to affected area twice daily as needed (skin infection). omega 3-vkt-rjx-fish oil (FISH OIL) 100-160-1,000 mg cap Take [...] mouth one time only for 1 dose. No current facility-administered medications for this visit. [...] use: No ROS: See HPI PE: BP 120/68 Pulse 76 Temp (Src) 97.3 (Left Tympanic) Resp 16 Wt 122 lb (55.3kg) LMP 10/13/2006 Gen: A&OX3, NAD, non-toxic appearing HEENT: PERRLA, EOMs intact b/l, nares without drainage, pharynx without erythema, exudate, lesions, or drainage. Uvula midline. Neck: No LAD, no thyromegaly, no meningismus. CV: RRR, no murmur Lungs: CTA b/l, no wheezing Skin: No rashes, lesions, or wounds on exposed skin. 1st MTP joint dorsal incision appears to be healed well Gait is slowed but stable No edema legs, normal peripheral pulses ASSESSMENT/PLAN: 1. HERNAN (obstructive sleep apnea) - ICD9: 327.23, ICD10: G47.33 (primary diagnosis) Use of CPAP/Bipap as directed, fax new order to [facility], she is in compliance 1. Hypothyroidism, unspecified type - ICD9: 244.9, ICD10: E03.9 (primary diagnosis) - Instructed patient on importance of taking on an empty stomach either first thing in the morning or at bedtime. - continue current dose of thyroid homrone 2. Gait disorder - ICD9: 781.2, ICD10: R26.9 S/p right foot 1st MTP joint fusion surgery 3. Anxiety with depression - ICD9: 300.4, ICD10: F41.8 Stable, continue same medication Prozac with benefit 4. Mood disorder (HCC) - ICD9: 296.90, ICD10: F39 See above, seems to be stable 5. S/P foot surgery, right - ICD9: V45.89, ICD10: Z98.890 F/u with surgeon for care and recommendations. 6. Hallux valgus, bilateral - ICD9: 735.0, ICD10: M20.11, M20.12 F/u with surgeon for care and recommendations. Shin Arias DO Return if no improvement. Follow up with Shin Arias DO. To ER if develops chest pain, shortness of breath. Discussed risks, benefits, alternatives, and potential side effects of medications. Patient/Guardian expressed understanding and agreed with the plan. See patient instructions. Shin Arias DO [address] [place] [address] documented in this encounter [facility] 10-21-2023 Instructions Shin Arias DO - 10/21/2023 11:21 AM EDT Bone stimulator ??? Ask Dr. Urias if this is needed Protein pea powder or whey powder - scoop into milk or water once a day Transparent labs brand or Organic Bone broth daily drink documented in this encounter [facility] 10-20-2023 Telephone encounter Note OV appt made as recommended below. Pt unable to do virtual visit. Jazlyn Marquez RN [facility] 10-20-2023 Miscellaneous Notes OV appt made as recommended below. Pt unable to do virtual visit. Jazlyn Marquez RN Left message to return call for appt. Would recommend virtual visit to address this. Thank you, Jossy Gustafson APRN.SCIENCE WRITER Francia from [facility] called in and reports Pt is going to be getting their CPAP supplies through them now. She was asking to have OV notes and updated orders faxed to # [phone]. I did not see orders, or mention of Pts CPAP in any recent notes with PCP. I tried calling Pt to see if she had talked with provider about switching CPAP supplies from [facility] to [facility]. I didn't see any messages in the computer where the Pt had called in asking for supplies to be switched, so called Pt to verify. Pt may need to come in and be seen by provider as there is nothing in notes about CPAP. documented in this encounter [facility] 10-20-2023 Telephone encounter Note Left message to return call for appt. [facility] 10-20-2023 Telephone encounter Note Would recommend virtual visit to address this. Thank you, Jossy Gustafson APRN.SCIENCE WRITER [facility] 10-20-2023 Telephone encounter Note Francia from [facility] called in and reports Pt is going to be getting their CPAP supplies through them now. She was asking to have OV notes and updated orders faxed to # [phone]. I did not see orders, or mention of Pts CPAP in any recent notes with PCP. I tried calling Pt to see if she had talked with provider about switching CPAP supplies from [facility] to [facility]. I didn't see any messages in the computer where the Pt had called in asking for supplies to be switched, so called Pt to verify. Pt may need to come in and be seen by provider as there is nothing in notes about CPAP. [facility] 07-15-2023 Miscellaneous Notes Pt. informed via My Chart. Please inform patient that her thyroid labs all look great, no changes needed Shin Arias DO documented in this encounter [facility] 07-14-2023 Note HNO ID: [id number] Author: SHIN ARIAS DO Service: ? Author Type: Physician Type: Progress Notes Filed: 07/15/2023 07:19 Note Text: CC: Henry Oliveira is a 67 year old female who presents to the office for follow up HPI: Last seen in office on May 03, 2023 Admits to having some intermittent feeling of [...] this brings her melyssa. 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 Interested in seeing [facility] at [facility]. Currently She is going to be having upcoming surgery by Dr. Gui Urias on her right foot to help her great toe pain- will be having a fusion and will be off work for 3 months and potentially longer. Surgery is scheduled for 10 days from now, she has a shower chair and kneeled scooter and rollator walker already. She will have help from friends for surgery. Mood, overall doing well. Taking prozac and medication as prescribed ADD, chronic fatigue, she is taking adderall, no adverse SE with medication. Has great support from her zoroastrian family PAST MEDICAL HISTORY Diagnosis Date Abnormal glandular Papanicolaou smear of cervix Abn. Pap smear (cervix) Asymptomatic varicose veins Depressive disorder, not elsewhere classified 09/27/2006 Hearing decreased Hyperlipidemia Hypothyroidism 2010 HERNAN on CPAP [facility] Peripheral vascular disease, unspecified (HCC) varicose [...] Current Outpatient Medications Medication Sig FLUoxetine (PROZAC) 10 mg capsule Take 1 capsule by mouth once daily. mometasone (ELOCON) 0.1 % ointment Apply to affected area once daily as needed. Once daily as needed on rash mupirocin (BACTROBAN) 2 % ointment Apply to affected area twice daily as needed (skin infection). omega 4-rwq-gkk-fish oil (FISH OIL) 100-160-1,000 mg cap Take [...] mouth one time only for 1 dose. ARMOUR THYROID 60 mg tablet Take 1 tablet by mouth once daily. dextroamphetamine-amphetamine (ADDERALL) 10 mg tablet Take 0.5-1 tablets by mouth once daily for 90 days. traZODone (DESYREL) 50 mg tablet TAKE 1 TO 2 TABLETS AT BEDTIME FOR SLEEP Current Facility-Administered Medications Medication Dose Route Frequency [...] use: No ROS: See HPI PE: BP 130/84 Pulse 63 Resp 16 Wt 122 lb (55.3kg) SpO2 96% LMP 10/13/2006 Gen: AANDOX3, NAD, non-toxic appearing HEENT: PERRLA, EOMs intact b/l, nares without drainage, pharynx wi (more content not included)... [facility] 07-07-2023 Miscellaneous Notes Pt. informed detailed [...] Shin Arias DO documented in this encounter [facility] 06-23-2023 Miscellaneous Notes The following approved [...] Mary Jo Rodriguez. documented in this encounter [facility] 05-17-2023 Note Patient Outreach (IN TMMN) HENRY OLIVEIRA ([id number]) 1955 F Date Time Provider Department 05/17/23 [...] for screening mammogram for breast cancer [Z12.31] Order(s):[facility] SCREENING [[id number]] Order #: [id number] FUTURE Prescriptions as of 05/22/2023 - dextroamphetamine-amphetamine [...] daily as needed (skin infection). - omega 5-bgg-ude-fish oil (FISH OIL) 100-160-1,000 mg cap Take [...] [Z77.018] 03/24/2021 Chito (more content not included)... [facility] 05-09-2023 Note HNO ID: [id number] Author: Viji Marrero Service: ? Author Type: [...] Viji Marrero May 09, 2023 12:09 PM [facility] 05-09-2023 Note Patient Outreach (AC CC) HENRY OLIVEIRA ([id number]) 1955 F Date Time Provider Department 05/09/23 PCP (HISTORICAL) [facility] During your visit today, we recorded the following information about you: Viji Marrero 05/09/2023 12:09 PM Signed POPULATION HEALTH NAVIGATION OUTREACH Action/ 2nd call, left vm Patient Identified by Name and : NO Outreach Outcome/Action Unable to reach patient: Left message Myrekshart message sent Did you use a PCP flex slot to schedule this appointment? No Reason for Outreach Care Gap or Scheduling/Wellness visits Payer: Payor: [facility] [place] / Plan: MMO MEDADVANTAGE HMO / [...] daily as needed (skin infection). - omega 4-gww-ibu-fish oil (FISH OIL) 100-160-1,000 mg cap Take [...] deficit [R41.840] 02/28/2017 (more content not included)... [facility] 05-04-2023 Note HNO ID: [id number] Author: Viji Marrero Service: ? Author Type: ? Type: Progress Notes Filed: 05/04/2023 12:04 PM Note Text: POPULATION HEALTH NAVIGATION OUTREACH Action/FYI Left vm Patient Identified by Name and : NO Outreach Outcome/Action Unable to reach patient: Left message Flexenclosure message sent Did you use a PCP flex slot to schedule this appointment? No Reason for Outreach Care Gap or Scheduling/Wellness visits Payer: Payor: O MEDICARE / Plan: s0cketO MEDADDailyevent HMO / Product Type: HMO / Care [...] Viji Marrero May 04, 2023 12:04 PM [facility] 05-04-2023 History of Present illness Narrative [...] 2023 12:04 PM documented in this encounter [facility] 05-04-2023 Note Patient Outreach (AC CC) HENRY OLIVEIRA ([id number]) 1955 F Date Time Provider Department 05/04/23 PCP (HISTORICAL) [facility] During your visit today, we recorded the following information about you: Viji Marrero 05/04/2023 12:04 PM Signed POPULATION HEALTH NAVIGATION OUTREACH Action/FYI Left vm Patient Identified by Name and : NO Outreach Outcome/Action Unable to reach patient: Left message SubC Controlt message sent Did you use a PCP flex slot to schedule this appointment? No Reason for Outreach Care Gap or Scheduling/Wellness visits Payer: Payor: [facility] [place] / Plan: s0cketO MEDADDailyevent HMO / Product Type: HMO / Care [...] - Rash Date Reviewed: 05/03/2023 Reviewed by: Marta-Green, Lupe PLACEMENT INTERVIEWER - Fully Assessed Prescriptions as of 05/04/2023 [...] daily as needed (skin infection). - omega 7-wwq-oza-fish oil (FISH OIL) 100-160-1,000 mg cap Take [...] 02/28/2017 Mood diso (more content not included)... [facility] 05-03-2023 Note HNO ID: [id number] Author: Shin Arias, DO Service: ? Author [...] prolonged standing or walking. 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 Did have some [...] this brings her melyssa. 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 Interested in seeing [facility] at [facility]. PAST MEDICAL HISTORY Diagnosis Date Abnormal glandular Papanicolaou smear of cervix Abn. Pap smear (cervix) Asymptomatic varicose veins Depressive disorder, not elsewhere classified 09/27/2006 Hearing decreased Hyperlipidemia Hypothyroidism 2010 HERNAN on CPAP [facility] Peripheral vascular disease, unspecified (HCC) varicose veins Sleep apnea CPAP Supraspinatus tendon tear 04/03/2012 right shoulder Vitamin B12 deficiency Vitamin D deficiency 10/30/2013 PAST SURGICAL HISTORY Procedure Laterality Date COLPOSCOPY CERVIX UPPER/ADJACENT VAGINA Colposcopy CORRECT BUNION,SIMPLE 01-30 (more content not included)... [facility] 04-11-2023 Miscellaneous Notes Patient has been identified by name and date of : Yes Requested Prescriptions Pending Prescriptions Disp Refills dextroamphetamine-amphetamine (ADDERALL) 10 mg tablet 30 tablet 0 Sig: Take 0.5-1 tablets by mouth once daily for 30 days. RX INSTRUCTIONS: Patient aware RX will be sent to pharmacy. No need to notify patient. ZIA Timmons 12/2022 Nov 04/2023 Last refill; 02/20/2023 Patient has been identified by name and date of : Yes Requested Prescriptions Pending Prescriptions Disp Refills dextroamphetamine-amphetamine (ADDERALL) 10 mg tablet 30 tablet 0 Sig: Take 0.5-1 tablets by mouth once daily for 30 days. RX INSTRUCTIONS: Patient aware RX will be sent to pharmacy. No need to notify patient. Jamia Young documented in this encounter [facility] 02-20-2023 Miscellaneous Notes TC to patient [...] is asking it be sent to the [facility] in [place]. Pended order pharmacy has been updated. Please [...] advise. Gayla Peck documented in this encounter [facility] 01-26-2023 Miscellaneous Notes Patient given results and verbalized understanding of instructions given. Marjorie Cui Left message for patient to return call. Xochilt Thomson LPN ----- Message from Lida Cardenas APRN.SCIENCE WRITER sent at 01/26/2023 7:21 AM EDT ----- [...] care provider or schedule a visit with [facility]. A test is not recommended to return to work/school when meeting the above criteria. Lida Cardenas APRN.SCIENCE WRITER documented in this encounter [facility] 01-25-2023 Note HNO ID: [id number] Author: Chris Rendon MD Service: ? Author [...] 1 tablet by mouth once daily. omega 1-vhv-mqt-fish oil (FISH OIL) 100-160-1,000 mg cap Take [...] INFLUENZA A/B NAAT, ROUTINE Chris Rendon MD [facility] 01-25-2023 History of Present illness Narrative [...] 1 tablet by mouth once daily. omega 1-wvv-qiy-fish oil (FISH OIL) 100-160-1,000 mg cap Take [...] Chris Rendon MD documented in this encounter [facility] 12-26-2022 Miscellaneous Notes The following approved [...] advise. Lizzy Peck documented in this encounter [facility] 12-26-2022 History of Present illness Narrative [...] decreased Hyperlipidemia Hypothyroidism 2010 HERNAN on CPAP [facility] Peripheral vascular disease, unspecified (HCC) varicose [...] mouth once daily. 90 tablet 1 omega 3-mzd-bel-fish oil (FISH OIL) 100-160-1,000 mg cap Take [...] Alivia Leyva PA-C documented in this encounter [facility] 12-26-2022 Note HNO ID: [id number] Author: Alivia Leyva PA-C Service: ? Author Type: Physician Flight Crew Time Clerk Type: Progress Notes Filed: 12/26/2022 9:17 AM [...] decreased Hyperlipidemia Hypothyroidism 2010 HERNAN on CPAP [facility] Peripheral vascular disease, unspecified (HCC) varicose [...] mouth once daily. 90 tablet 1 omega 6-onp-mfg-fish oil (FISH OIL) 100-160-1,000 mg cap Take 1 capsul (more content not included)... [facility] 11-25-2022 History of Present illness Narrative [...] of self injury. Continues to work at [employer], job that she enjoys related to the [...] Hyperlipidemia Hypothyroidism 2010 HERNAN on CPAP [facility]ME [facility] Peripheral vascular disease, unspecified (HCC) varicose veins [...] mouth once daily. 90 tablet 1 omega 8-tof-ccs-fish oil (FISH OIL) 100-160-1,000 mg cap Take [...] Z86.73 40-minute appointment almost all spent in [id number] counseling and education. Follow-up 4 weeks to see how fluoxetine and fluid restrictions are affecting sleep Alivia Leyva PA-C documented in this encounter [facility] 11-25-2022 Note HNO ID: [id number] Author: Alivia Leyva PA-C Service: ? Author Type: Physician Flight Crew Time Clerk Type: Progress Notes Filed: 11/25/2022 5:53 PM [...] of self injury. Continues to work at [employer], job that she enjoys related to the [...] decreased Hyperlipidemia Hypothyroidism 2010 HERNAN on CPAP [facility] Peripheral vascular disease, unspecified (HCC) varicose [...] 0 mometasone (ELOCON) (more content not included)... [facility] 10-19-2022 History of Present illness Narrative [...] given. 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 Did have some [...] decreased Hyperlipidemia Hypothyroidism 2010 HERNAN on CPAP [facility] Peripheral vascular disease, unspecified (HCC) varicose [...] 1 tablet by mouth once daily. omega 3-kzr-ovn-fish oil (FISH OIL) 100-160-1,000 mg cap Take [...] plan. See patient instructions. Shin Arias DO [address] [place] [address] documented in this encounter [facility] 10-04-2022 Miscellaneous Notes PDMP website checked and validated. [...] medication - must be call in. Corrine Chambers Pss documented in this encounter [facility] 09-07-2022 Miscellaneous Notes Rec'd fax and [...] provided. This was not correct. Pharmacy is [phone]. PA already completed and denied. Tier exception is being reviewed. Will rec'd response via fax. The reference number for this is [id number]. This call took over 20 minutes. Patient calling said she needs formulary exception done for the Amour thyroid. Henry Oliveira Sawyer: [id number] - CATRACHITO help? Call us at Outcome Deniedtoday Request Reference Number: [id number]. ARMOUR THYRO TAB 90MG is denied for not meeting the prior authorization requirement(s). Details of this decision are in the notice attached below or have been faxed to you Henry Oliveira Sawyer: [id number] - CATRACHITO help? Call us at Status Sent to [facility] [place] Thyroid 90MG tablets Form [employer] Electronic Prior Authorization Form (2016 NCPDP) THE OFFICE CAN COMPLETE A PA. we have no pharmacy benefits on file. Will have to review via covermymeds.We do not have the ability to add meds to a formulary. Pt called in and reports office will need to call insurance phone # [phone] to get their Belfast Thyroid added to insurance formulary. Pt reports she is almost out of medication. Prior Authorization Documentation Prior authorization requested for the following medication: Medication: Belfast Thyroid Provider: Dr Arias Insurance Company Name: [facility] Medicare Insurance Company Phone number: [phone] Patient ID number: [id number] Pharmacy Name: [facility] Telephone number: [phone] documented in this encounter [facility] 08-10-2022 History of Present illness Narrative [...] decreased Hyperlipidemia Hypothyroidism 2010 HERNAN on CPAP [facility] Peripheral vascular disease, unspecified (HCC) varicose veins Sleep apnea CPAP Supraspinatus tendon tear 04/03/2012 right shoulder Vitamin B12 deficiency Vitamin D deficiency 10/30/2013 PAST SURGICAL HISTORY Procedure Laterality Date COLPOSCOPY CERVIX UPPER/ADJACENT VAGINA Colposcopy CORRECT BUNION,SIMPLE -12 Bunion, left DILATION & CURETTAGE DX&/THER NONOBSTETRIC 1980s Dilation & curettage LIG/TRNSXJ FLP TUBE ABDL/VAG APPR UNI/BI COMPLETE Tubal ligation PAST SURGICAL HISTORY OF 11/2003 breast biopsy right, benign PAST SURGICAL HISTORY OF 1997 wrist surgery - after fracture, right PAST SURGICAL HISTORY OF 06/28/13 arthroscopy with open rotator cuff repair Current Outpatient Medications Medication Sig omega 3-qkb-tcj-fish oil (FISH OIL) 100-160-1,000 mg cap Take [...] plan. See patient instructions. Shin Arias DO [address] [place] [address] documented in this encounter [facility] 08-09-2022 Miscellaneous Notes Appointment made message left on VM. Please schedule her an appt. I have 3 openings tomorrow or can see [facility] as well Shin Arias DO Patient calling asking for appt today with PCP she has poison ismael rash and hands and feet and is spreading. Patient refuses to go to express care, aware [facility] are out of office today. Please advise documented in this encounter [facility] 08-05-2022 Miscellaneous Notes Pt informed, verbalized understanding Jaz Solis Hold armour thyroid 2x per week. Jossy Gustafson APRN.SCIENCE WRITER Patient returned call and went over results, [...] Shin Arias DO documented in this encounter [facility] 07-22-2022 Miscellaneous Notes Pt. informed via My Chart. Please inform patient that her PFTs and lung volumes were normal as below IMPRESSION: Spirometry is normal. There was not a significant bronchodilator response. The TLC, RV and RV/TLC are normal. Shin Arias DO documented in this encounter [facility] 07-21-2022 Miscellaneous Notes Sent UB Access message [employer]eebler The following approved medication requests have been transmitted electronically. Requested Prescriptions Signed Prescriptions Disp Refills ARMOUR THYROID 90 mg tablet 30 tablet 0 Sig: Take 1 tablet by mouth once daily. Authorizing Provider: JOSSY GUSTAFSON APRN.SCIENCE WRITER Pt calling office to request a 1 month supply of Belfast thyroid to be sent to [facility] in [place]. Rx pending. Please review and advise. Neri Robles LPN documented in this encounter [facility] 07-20-2022 History of Present illness Narrative PULM FUNCTION SMARTBLOCK: Provider: Shin Arias DO Assisting Tech: [email or web address] Naranjo Spirometry w/BD: 1 LV - Box: 1 documented in this encounter [facility] 07-19-2022 History of Present illness Narrative CC: Henry Oliveira is a 66 year old female who presents to the office for follow up HPI: Right ankle and foot pain, was told needs to wear a Boot then x-rays then likely brace for right ankle tendinitis, seen by [facility], no surgery needed at this time. Going to have metal fillings removed from her mouth. Feels that this is affecting her health Mood, feels she is managing well with being off the Prozac medication, doesn't feel she needs anything at this time. Has good foundation with zoroastrian and zoroastrian friends as well. Hypothyroidism, taking her armour thyroid medication, cost is expensive, doesn't want to be on synthetic medication. Hair is thinning, + chronic fatigue + shortness of breath, mostly at zoroastrian when she is trying to sing or [...] decreased Hyperlipidemia Hypothyroidism 2010 HERNAN on CPAP [facility] Peripheral vascular disease, unspecified (HCC) varicose [...] repair Current Outpatient Medications Medication Sig omega 1-brg-peo-fish oil (FISH OIL) 100-160-1,000 mg cap Take [...] ICD9: 727.06, ICD10: M77.51 - f/u with [facility] 5. SOB (shortness of breath) - ICD9: [...] off of medications at this time Shin Arias, DO Return if no improvement. Follow up with Shin Arias DO. To ER if develops chest pain, shortness of breath Discussed risks, benefits, alternatives, and potential side effects of medications. Patient/Guardian expressed understanding and agreed with the plan. See patient instructions. Shin Arias DO [address] [place] [address] documented in this encounter [facility] 06-21-2022 Miscellaneous Notes Pt informed, verbalized understanding Jaz Solis Yes, please inform patient that [facility] Shin [facility] DO Patient reports Baljinder is out of adderall 10 mg. Reports she has 4 pills left. Asking if provider would send Rx to [facility]? Pended. documented in this encounter [facility] 06-20-2022 Miscellaneous Notes PDMP website checked [...] Angela Buchanan Pss documented in this encounter [facility] 06-09-2022 Miscellaneous Notes Status on below [...] Rosamaria Montaño LPN documented in this encounter [facility] 06-08-2022 Miscellaneous Notes Patient called and [...] within 2 weeks -- get opinion of health services information specialist. Thank you, Jossy Gustafson APRN.SCIENCE WRITER Patient calls to request results of right ankle x-ray. Reviewed x-ray results and OV note from 06/06/2022. Patient asking if any further instructions from provider. Patient aware provider out of office today and will return tomorrow. Please review and advise, Genie Calles RN documented in this encounter [facility] 06-06-2022 Instructions Cydney Mahmood LPN - [...] usual activities immediately. documented in this encounter [facility] 06-06-2022 History of Present illness Narrative [...] hesitant and worried about going back to health services information specialist for repeat surgery on other foot. Past medical history, appointments, medications, allergies reviewed. Previous Medical History PAST MEDICAL HISTORY Diagnosis Date Abnormal glandular Papanicolaou smear of cervix Abn. Pap smear (cervix) Asymptomatic varicose veins Depressive disorder, not elsewhere classified 09/27/2006 Hearing decreased Hyperlipidemia Hypothyroidism 2010 HERNAN on CPAP [facility] Peripheral vascular disease, unspecified (HCC) varicose [...] within 1-2 weeks, may need to see health services information specialist about bunion correction. Pt agrees. Has recommendation of which health services information specialist she would like to go to if [...] Patient agreeable to treatment plan. Jossy Chahal APRN.SCIENCE WRITER [address] [place] [address] documented in this encounter [facility] 05-19-2022 History of Present illness Narrative [...] decreased Hyperlipidemia Hypothyroidism 2010 HERNAN on CPAP [facility] Peripheral vascular disease, unspecified (HCC) varicose [...] Alivia Leyva PA-C documented in this encounter [facility] 05-17-2022 Miscellaneous Notes Patient has been [...] Jazlyn Marquez RN documented in this encounter [facility] 05-11-2022 Miscellaneous Notes PDMP website checked and validated. All prescriptions have been APPROPRIATELY filled. No suspicious activity was identified. 05/11/2022 by Jossy Chahal APRN.ARA The following approved medication requests have been transmitted electronically. Requested Prescriptions Signed Prescriptions Disp Refills dextroamphetamine-amphetamine (ADDERALL) 10 mg tablet 30 tablet 0 Sig: Take 0.5-1 tablets by mouth once daily for 30 days. Authorizing Provider: JOSSY CHAHAL APRN.ARA Patient has been identified by name and [...] Lupe Garcia Pss documented in this encounter [facility] 05-11-2022 Miscellaneous Notes Spoke with pt [...] Shin Arias DO documented in this encounter [facility] 05-10-2022 History of Present illness Narrative 66 year old female with hx anxiety, depression, ADD, hypothyroidism, HERNAN, stroke r/t right cerebellar artery, VA stenosis with c/o episode hot, weak, sick to stomach . [place] like when she had her stroke. 9:30a Giving an infirm friend a bath: she was standing, Tawana was bent over washing under belly and suddenly felt sick to stomach, weak, drove home. Episode came up from toes, hot all over, nausea, weak, not syncopal but somewhat lightheaded. No focal symptoms. [place] somewhat like sx when she had her [...] normal carotid flow. 09/29/2018 [facility] Right inferior cerebellar infarct (09/29/18): [...] decreased Hyperlipidemia Hypothyroidism 2010 HERNAN on CPAP [facility] Peripheral vascular disease, unspecified (HCC) varicose [...] Lymph 1.00 - 4.00 k/uL 1.76 1.68 Peñuelas% % 7.2 7.6 Abs Peñuelas <0.87 k/uL 0.40 0.39 Eosin% % 2.3 [...] Alivia Leyva PA-C documented in this encounter [facility] 04-19-2022 History of Present illness Narrative [...] cataracts. Had recent surgery for cataracts at [facility] Is recently fully retired, taking care of 2 granddaughters 2 days a week. Is looking forward hopefully to be able to travel a little eventually but unsure if will be able due to financials. Has tapered off her Prozac and feels overall her mood is stable. Relies on her Protestant audrey and friends for support. 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 Need for follow up with [facility] if exercises don't help symptoms Shin Arias, DO Return if no improvement. Follow up with Shin Arias DO. To ER if develops chest pain, shortness of breath Discussed risks, benefits, alternatives, and potential side effects of medications. Patient/Guardian expressed understanding and agreed with the plan. See patient instructions. Shin Arias DO [address] [place] [address] documented in this encounter [facility] 03-16-2022 Miscellaneous Notes PDMP website checked [...] Lupe Garcia Pss documented in this encounter [facility] 01-21-2022 Instructions Shin Arias DO - 01/21/2022 12:31 PM EDT Vitamin B complex in the AM- liquid or chewable (with at least 2000 mcg or more of vitamin B12 within it) documented in this encounter [facility] 01-21-2022 History of Present illness Narrative [...] her mood is stable. Relies on her Protestant audrey and friends for support. Hypothyroidism, + fatigue, she is unsure if this is related to her thyroid dx or her HERNAN and not tolerating masks well. PAST MEDICAL HISTORY Diagnosis Date Abnormal glandular Papanicolaou smear of cervix Abn. Pap smear (cervix) Asymptomatic varicose veins Depressive disorder, not elsewhere classified 09/27/2006 Hearing decreased Hyperlipidemia Hypothyroidism 2010 HERNAN on CPAP [facility]ME [facility] Peripheral vascular disease, unspecified (HCC) varicose veins [...] agreed with the plan. Shin Arias DO [address] [place] [address] documented in this encounter [facility] 01-19-2022 Miscellaneous Notes The following approved medication requests have been transmitted electronically. Requested Prescriptions Signed Prescriptions Disp Refills dextroamphetamine-amphetamine (ADDERALL) 10 mg tablet 30 tablet 0 Sig: Take 0.5-1 tablets by mouth once daily for 30 days. Authorizing Provider: IVANA MITCHELL APRN.[facility] PDMP website checked and validated. All [...] Angela Buchanan Pss documented in this encounter [facility] 12-31-2021 Miscellaneous Notes Patient has been [...] Last refill: 05/2021 documented in this encounter [facility] 11-25-2021 Miscellaneous Notes The following approved [...] Gayla Hernandez Pss documented in this encounter [facility] 10-23-2021 History of Present illness Narrative CC: Henry Oliveira is a 66 year old female who presents to the office for follow up HPI: Mood, overall feels the Prozac and prn trazodone for insomnia is helping symptoms stay stable. She is still enjoying watching her granddaughters and zoroastrian activities. Hypothyroidism, taking armour thyroid hormone supplement [...] decreased Hyperlipidemia Hypothyroidism 2010 HERNAN on CPAP [facility] Peripheral vascular disease, unspecified (HCC) varicose [...] cholesterol diet. - LIPID PANEL BASIC Shin L Arias, DO PDMP website checked and validated. All [...] plan. See patient instructions. Shin Arias DO [address] [place] [address] documented in this encounter [facility] 10-22-2021 Instructions Shin Arias DO - 10/22/2021 4:46 PM EDT Change your Marley to Zyrtec 10 mg or to Xyzal 5-10 mg a day for allergy symptoms Eye lubricating drops or allergy eye drops 1-2 times a day to help eye symptoms. documented in this encounter [facility] 10-08-2021 Miscellaneous Notes PDMP website checked [...] days left of this medication Mary Jo Pitt [facility] documented in this encounter [facility] 09-09-2021 Miscellaneous Notes PDMP website checked [...] advise. Sera PECK documented in this encounter [facility] 08-09-2021 Miscellaneous Notes The following approved medication requests have been transmitted electronically. Signed Prescriptions Disp Refills ARMOUR THYROID 90 mg 90 tablet 3 Sig: Take 1 tablet by mouth daily before breakfast. RADHA: Yes Authorizing Provider: JOSSY CHAHAL APRN.ARA documented in this encounter [facility] 07-29-2021 History of Present illness Narrative Chief Complaint Patient presents with Right Foot - Pain C/o bunion on rt foot, hx of lft foot bunion sx in 2011 and had a bad time with it, has issues with it still, correction problem, has numbness in the toes and [...] pain as well as short term and lobsterman results of neglecting the mechanics of this. [...] address this. documented in this encounter [facility] 06-30-2021 Miscellaneous Notes Pt notified via [employer] message Jaz Addison Ma The following approved medication requests have been transmitted electronically. Signed Prescriptions Disp Refills FLUoxetine (PROZAC) 20 mg capsule 90 capsule 1 Sig: Take 1 capsule by mouth once daily. RADHA: No Authorizing Provider: SHIN ARIAS DO Please load rx's needed Shin Arias DO PT called and wanted her medication to be sent to [facility] in [place] instead of [facility]. documented in this encounter [facility] 11-04-2013 History of Past i llness [...] of this encounter (statuses as of 08/09/2021) [facility] Narrative* Problem [...] of this encounter (statuses as of 09/09/2021) [facility] N[facility]ative* Problem [...] of this encounter (statuses as of 10/08/2021) [facility] N[facility]* Problem [...] of this encounter (statuses as of 10/16/2021) [facility]* Problem [...] of this encounter (statuses as of 10/23/2021) [facility]* Problem [...] of this encounter (statuses as of 11/15/2021) [facility]* Problem [...] of this encounter (statuses as of 11/25/2021) [facility]* Problem [...] of this encounter (statuses as of 12/31/2021) [facility]* Problem [...] of this encounter (statuses as of 01/19/2022) [facility] Problem [...] of this encounter (statuses as of 01/21/2022) [facility] Problem [...] of this encounter (statuses as of 03/16/2022) [facility] Problem [...] of this encounter (statuses as of 04/19/2022) [facility] Problem [...] of this encounter (statuses as of 05/17/2022) [facility]* Problem [...] of this encounter (statuses as of 05/18/2022) [facility] Problem [...] of this encounter (statuses as of 05/20/2022) [facility] Problem [...] of this encounter (statuses as of 05/21/2022) [facility] Problem [...] of this encounter (statuses as of 06/06/2022) [facility] Problem [...] of this encounter (statuses as of 06/08/2022) [facility] Problem [...] of this encounter (statuses as of 06/09/2022) [facility] Problem [...] of this encounter (statuses as of 06/21/2022) [facility] Problem [...] of this encounter (statuses as of 06/22/2022) [facility] Problem [...] of this encounter (statuses as of 07/20/2022) [facility] Problem [...] of this encounter (statuses as of 07/20/2022) [facility] Problem [...] of this encounter (statuses as of 07/21/2022) [facility] Problem [...] of this encounter (statuses as of 07/22/2022) [facility] Problem [...] of this encounter (statuses as of 08/05/2022) [facility] Problem [...] of this encounter (statuses as of 08/10/2022) [facility] Problem [...] of this encounter (statuses as of 08/10/2022) [facility] Problem [...] of this encounter (statuses as of 09/07/2022) [facility] Problem [...] of this encounter (statuses as of 10/19/2022) [facility] Problem [...] of this encounter (statuses as of 11/26/2022) [facility] Problem [...] of this encounter (statuses as of 12/26/2022) [facility] Problem [...] of this encounter (statuses as of 12/26/2022) [facility] Problem [...] of this encounter (statuses as of 01/26/2023) [facility] Problem [...] of this encounter (statuses as of 01/27/2023) [facility] Problem [...] of this encounter (statuses as of 02/21/2023) [facility] Problem [...] of this encounter (statuses as of 04/13/2023) [facility] Problem [...] of this encounter (statuses as of 05/05/2023) [facility] Problem [...] of this encounter (statuses as of 05/22/2023) [facility] Problem [...] of this encounter (statuses as of 06/23/2023) [facility] Problem [...] of this encounter (statuses as of 07/07/2023) [facility] Problem [...] of this encounter (statuses as of 07/15/2023) [facility] Problem [...] of this encounter (statuses as of 08/05/2023) [facility]* Diagnosis Hypothyroidism, unspecified type documented in this encounter [facility] note* Diagnosis Bilateral foot pain- Primary Pain in limb Bilateral foot pain Pain in limb Bilateral foot pain Pain in limb [facility] Diagnosis Concentration deficit Attention or concentration deficit documented in this encounter [facility] note* Diagnosis Anxiety with depression Mood disorder (HCC) Unspecified episodic mood disorder documented in this encounter [facility]* Diagnosis Anxiety with depression- Primary Mood disorder (HCC) Unspecified episodic mood disorder Concentration deficit Attention or concentration deficit Hypothyroidism, unspecified type Vitamin B12 deficiency Other B-complex deficiencies Vitamin D deficiency Unspecified vitamin D deficiency Fatigue, unspecified type Dyslipidemia Other and unspecified hyperlipidemia documented in this encounter [facility] note* Diagnosis Encounter for screening mammogram for breast cancer [facility] Diagnosis Concentration deficit Attention or concentration deficit documented in this [facility]* Diagnosis Situational insomnia Transient disorder of initiating or maintaining sleep Anxiety with depression documented in this encounter [facility] note* Diagnosis Concentration deficit Attention or concentration deficit documented in this encounter [facility] note* Diagnosis Age-related cataract of both eyes, unspecified age-related cataract type- Primary Double vision Diplopia Vitamin B12 deficiency Other B-complex deficiencies Vitamin D deficiency Unspecified vitamin D deficiency Hypothyroidism, unspecified type Dyslipidemia Other and unspecified hyperlipidemia Hyperglycemia Other abnormal glucose Anxiety with depression documented in this encounter [facility] note* Diagnosis Concentration deficit Attention or concentration deficit documented in this encounter [facility] note* Diagnosis Vitamin B12 deficiency- Primary Other B-complex deficiencies Vitamin D deficiency Unspecified vitamin D deficiency Dyslipidemia Other and unspecified hyperlipidemia Hypothyroidism, unspecified type Elevated alkaline phosphatase level Other nonspecific abnormal serum enzyme levels Chronic right shoulder pain Pain in joint, shoulder region Chronic pain of right ankle documented in this encounter [facility] noteNo assessment information [facility] Work Phone: Evaluation note* Diagnosis Elevated alkaline phosphatase level- Primary Other nonspecific abnormal serum enzyme levels documented in this encounter [facility] note* Diagnosis Vasovagal symptom- Primary Elevated alkaline [...] left vertebral artery [facility] Hypothyroidism, unspecified type [facility] Diagnosis Flu-like symptoms- Primary Other general symptoms Elevated alkaline phosphatase level Other nonspecific abnormal serum enzyme levels [facility] Diagnosis Right ankle swelling- Primary Effusion of ankle and foot joint Encounter for screening for osteoporosis Special screening for osteoporosis Encounter for screening mammogram for malignant neoplasm of breast Other screening mammogram [facility] Diagnosis Near syncope- Primary Syncope and collapse [facility] Diagnosis Concentration deficit Attention or concentration deficit [facility] Diagnosis Dyslipidemia- Primary Other and unspecified hyperlipidemia Hair thinning Alopecia, unspecified Fatigue, unspecified type Tendinitis of right ankle Tenosynovitis of foot and ankle SOB (shortness of breath) Shortness of breath Hypothyroidism, unspecified type Screening for colon cancer Special screening for malignant neoplasms, colon Concentration deficit Attention or concentration deficit Anxiety with depression [facility] Diagnosis SOB (shortness of breath) Shortness of breath [facility] SOB (shortness of breath) Shortness of breath [facility] Diagnosis Dermatitis contact- Primary Hypothyroidism, unspecified type [facility] Diagnosis Elevated ferritin- Primary Other abnormal blood chemistry Rash and nonspecific skin eruption Rash and other nonspecific skin eruption Elevated alkaline phosphatase level Other nonspecific abnormal serum enzyme levels Dermatitis contact Hypothyroidism, unspecified type Dyslipidemia Other and unspecified hyperlipidemia Mood disorder (HCC) Unspecified episodic mood disorder Fatigue, unspecified type Hyperglycemia Other abnormal glucose [facility] Diagnosis Adjustment insomnia- Primary Transient disorder of initiating or maintaining sleep Anxiety with depression 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), and cerebral infarction without residual deficits [facility] Diagnosis Concentration deficit Attention or concentration deficit [facility] Diagnosis Situational insomnia Transient disorder of initiating or maintaining sleep Anxiety with depression documented in this encounter [facility]* Diagnosis Sore throat- Primary Acute pharyngitis Influenza-like illness Influenza with other respiratory manifestations documented in this encounter [facility] note* Diagnosis Concentration deficit Attention or concentration deficit documented in this encounter [facility] note* Diagnosis Encounter for screening mammogram for breast cancer documented in this encounter [facility] note* Diagnosis Concentration deficit Attention or concentration deficit documented in this encounter [facility] note* Diagnosis HERNAN (obstructive sleep apnea)- Primary Obstructive sleep apnea (adult) (pediatric) Hypothyroidism, unspecified type Gait disorder Abnormality of gait Anxiety with depression Mood disorder (HCC) Unspecified episodic mood disorder S/P foot surgery, right Hallux valgus, bilateral documented in this encounter [facility] note* Diagnosis HERNAN (obstructive sleep apnea)- Primary Obstructive sleep apnea (adult) (pediatric) documented in this encounter [facility] note* Diagnosis Concentration deficit Attention or concentration deficit documented in this encounter [facility] for referral (narrative)* Diagnostic Procedure Only (Routine) - Pending Review Specialty Diagnoses / Procedures Referred By Cassie payne Referred To Contact [facility] Diagnoses Encounter for screening mammogram for breast cancer Procedures MANDO SCREENING SCREENING MAMMOGRAPHY BI 2-VIEW BREAST INC CAD Shin Arias DO [address] [place] [address] [facility] [address] [facility] [place] [address] Referral ID Status Reason Start Date Expiration Date Visits Requested Visits Authorized [id number] Pending Review Auto-Generat ed Referral 11/10/2021 12/10/2022 1 1 [facility] for referral (narrative)* Diagnostic Procedure Only (Routine) - Pending Review Specialty Diagnoses / Procedures Referred By Cassie payne Referred To Contact [facility] IMAG[facility] Diagnoses Elevated alkaline phosphatase level Procedures US ABD RT UPPER QUADRANT US ABDOMINAL REAL TIME W/IMAGE LIMITED Shin Arias DO [address] [place] [address] [facility] Referral ID Status Reason Start Date Expiration Date Visits Requested Visits Authorized [id number] Pending Review Auto-Generat ed Referral 2 06/02/2023 1 1 [facility] for referral (narrative)* Diagnostic Procedure Only (Routine) - Closed Specialty Diagnoses / Procedures Referred By Kiaraac t Referred To Contact XR IMAGING Diagnoses Right ankle swelling Procedures XR ANKLE GENERAL 3V AP/LAT/OBL RIGHT RADEX ANKLE COMPLETE MINIMUM 3 VIEWS Jossy Gustafson APRN.SCIENCE WRITER [address] [place] [address] Xr Imaging Referral ID Status Reason Start Date Expiration Date V isits Requested Visits Authorized [id number] Closed Auto-Generate d Referral 06/06/2022 07/06/2023 1 1 * Diagnostic Procedure Only (Routine) - Pending Review Specialty Diagnoses / Procedures Referred By Cassie t Referred To Contact [facility] Diagnoses Encounter for screening mammogram for malignant neoplasm of breast Procedures MANDO SCREENING SCREENING MAMMOGRAPHY BI 2-VIEW BREAST INC CAD Jossy Gustafson, EDWIN.SCIENCE WRITER [address] [place] [address] [facility] [address] [place] [address] Referral ID Status Reason Start Date Expiration Date Visits Requested Visits Authorized [id number] Pending Review Auto-Generat ed Referral 06/06/2022 07/06/2023 1 1 [facility] for referral (narrative)* Outpatient Procedure (Routine) - Pending Review Specialty Diagnoses / Procedures Referred By Contac t Referred To Contact [facility] Diagnoses Near syncope Procedures STRESS ECHO TREADMILL ECHO TTHRC R-T 2D W/WO M-MODE COMPLETE REST&ST Alivia Leyva PA-C [address] [place] [address] [facility] [place] [address] [place] [address] Referral ID Status Reason Start Date Expiration Date Visits Requested Visits Authorized [id number] Pending Review Auto-Generat ed Referral 05/19/2022 05/19/2023 1 1 [facility] for referral (narrative)* Outpatient Procedure (Routine) - Authorized Specialty Diagnoses / Procedures Referred By Contac t Referred To Contact [facility] Diagnoses SOB (shortness of breath) Procedures LUNG VOLUMES Shin Arias, DO [address] [place] [address] [address] Referral ID Status Reason Start Date Expiration Date Visits Requested Visits Authorized [id number] Authorized Auto-Generat ed Referral 07/19/2022 08/18/2023 1 1 * Outpatient Procedure (Routine) - Authorized Specialty Diagnoses / Procedures Referred By Contac t Referred To Contact [facility] Diagnoses SOB (shortness of breath) Procedures SPIROMETRY - BASELINE AND POST DILATOR BRNCDILAT RSPSE SPMTRY PRE&POST-BRNCDILAT ADMN Shin Arias DO [address] [place] [address] [address] Referral ID Status Reason Start Date Expiration Date Visits Requested Visits Authorized [id number] Authorized Auto-Generat ed Referral 07/19/2022 08/18/2023 1 1 [facility] for referral (narrative)* Diagnostic Procedure Only (Routine) - Pending Review Specialty Diagnoses / Procedures Referred By Contac t Referred To Contact [facility] Diagnoses Encounter for screening mammogram for breast cancer Procedures MANDO SCREENING SCREENING MAMMOGRAPHY BI 2-VIEW BREAST INC CAD Shin Arias, DO [address] [place] [address] [facility] [address] [place] [phone] Referral ID Status Reason Start Date Expiration Date Visits Requested Visits Authorized [id number] Pending Review Auto-Generat ed Referral 05/17/2023 06/15/2024 [address] 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 Advance Directive(s) Latest Code Status on File Code Status Date Activated Date Inactivated Comments Full Code 09/30/2018 9:26 PM Would like her daughter, Leah to be her HCPOA and make decisions on her behalf if she is unable to make them by herself Documents on File Type Date Recorded 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 Advance Directive(s) Reason for Referral Specialty Diagnoses / Procedures Referred By Contac t Referred To Contact Diagnoses Bilateral foot pain Procedures XR FOOT RIGHT 3 VIEWS Atway, Said A, DPM [address] [facility] [address] [place] [address] Referral ID Status Reason Start Date Expiration Date V isits Requested Visits Authorized [id number] New Request 07/29/2021 08/23/2022 1 1 Specialty Diagnoses / Procedures Referred By Contac t Referred To Contact Diagnoses Bilateral foot pain Procedures XR FOOT LEFT 3 VIEWS Atway, Said A, DPM [address] [facility] [address] [place] [address] Referral ID Status Reason Start Date Expiration Date V isits Requested Visits Authorized [id number] New Request 07/29/2021 08/23/2022 1 1 Specialty Diagnoses / Procedures Referred By Contac t Referred To Contact Ophthalmology Diagnoses Age-related cataract of both eyes, unspecified age-related cataract type Double vision Procedures CONSULT TO OPHTHALMOLOGY OFFICE/OUTPATIENT NEW HIGH MDM 60-74 MINUTES Shin Arias DO [address] [place] [address] Referral ID Status Reason Start Date Expiration Date Visits Requested Visits Authorized [id number] Pending Review PCP Requested Referral 01/21/2022 01/21/2023 1 1 Health Concerns Infection Onset Date Last Indicated Resolved Time COVID-19 Confirmed 01/25/2023 01/25/2023 Infection Onset Date Last Indicated Resolved Time COVID-19 Confirmed 01/25/2023 01/25/2023 3 8:51 PM EDT Additional Source Comments INFORMATION SOURCE (unrecogn ized section and content) DATE CREATED AUTHOR 11/02/2017 [facility] DATE CREATED AUTHOR AUTHOR'S ORGANIZ ATION 08/21/2021 [facility] DATE CREATED AUTHOR AUTHOR'S ORGANIZ ATION 10/28/2023 [facility] DATE CREATED AUTHOR AUTHOR'S ORGANIZ ATION 11/30/2023 [facility] Source Comments (unrecognize d section and content) In the event this informatio n is protected by the Federal Confidentiality of Alcohol and Drug Abuse Patient Records regulations: The Federal rules restrict any use of the information to criminally investigate or prosecute any alcohol or drug abuse patient.[facility] the event this information is protected by the Federal Confidentiality of Alcohol and Drug Abuse Patient Records regulations: The Federal rules restrict any use of the information to criminally investigate or prosecute any alcohol or drug abuse patient.[facility] the event this information is protected by the Federal Confidentiality of Alcohol and Drug Abuse Patient Records regulations: The Federal rules restrict any use of the information to criminally investigate or prosecute any alcohol or drug abuse patient.[facility] the event this information is protected by the Federal Confidentiality of Alcohol and Drug Abuse Patient Records regulations: The Federal rules restrict any use of the information to criminally investigate or prosecute any alcohol or drug abuse patient.[facility]In the event this information is protected by the Federal Confidentiality of Alcohol and Drug Abuse Patient Records regulations: The Federal rules restrict any use of the information to criminally investigate or prosecute any alcohol or drug abuse patient.[facility] the event this information is protected by the Federal Confidentiality of Alcohol and Drug Abuse Patient Records regulations: The Federal rules restrict any use of the information to criminally investigate or prosecute any alcohol or drug abuse patient.[facility] the event this information is protected by the Federal Confidentiality of Alcohol and Drug Abuse Patient Records regulations: The Federal rules restrict any use of the information to criminally investigate or prosecute any alcohol or drug abuse patient.[facility] the event this information is protected by the Federal Confidentiality of Alcohol and Drug Abuse Patient Records regulations: The Federal rules restrict any use of the information to criminally investigate or prosecute any alcohol or drug abuse patient.[facility] the event this information is protected by the Federal Confidentiality of Alcohol and Drug Abuse Patient Records regulations: The Federal rules restrict any use of the information to criminally investigate or prosecute any alcohol or drug abuse patient.[facility] the event this information is protected by the Federal Confidentiality of Alcohol and Drug Abuse Patient Records regulations: The Federal rules restrict any use of the information to criminally investigate or prosecute any alcohol or drug abuse patient.[facility] HospitalIn the event this information is protected by the Federal Confidentiality of Alcohol and Drug Abuse Patient Records regulations: The Federal rules restrict any use of the information to criminally investigate or prosecute any alcohol or drug abuse patient.[facility] HospitalIn the event this information is protected by the Federal Confidentiality of Alcohol and Drug Abuse Patient Records regulations: The Federal rules restrict any use of the information to criminally investigate or prosecute any alcohol or drug abuse patient.[facility] HospitalIn the event this information is protected by the Federal Confidentiality of Alcohol and Drug Abuse Patient Records regulations: The Federal rules restrict any use of the information to criminally investigate or prosecute any alcohol or drug abuse patient.[facility] HospitalIn the event this information is protected by the Federal Confidentiality of Alcohol and Drug Abuse Patient Records regulations: The Federal rules restrict any use of the information to criminally investigate or prosecute any alcohol or drug abuse patient.[facility] HospitalIn the event this information is protected by the Federal Confidentiality of Alcohol and Drug Abuse Patient Records regulations: The Federal rules restrict any use of the information to criminally investigate or prosecute any alcohol or drug abuse patient.[facility] HospitalIn the event this information is protected by the Federal Confidentiality of Alcohol and Drug Abuse Patient Records regulations: The Federal rules restrict any use of the information to criminally investigate or prosecute any alcohol or drug abuse patient.[facility] HospitalIn the event this information is protected by the Federal Confidentiality of Alcohol and Drug Abuse Patient Records regulations: The Federal rules restrict any use of the information to criminally investigate or prosecute any alcohol or drug abuse patient.[facility] HospitalIn the event this information is protected by the Federal Confidentiality of Alcohol and Drug Abuse Patient Records regulations: The Federal rules restrict any use of the information to criminally investigate or prosecute any alcohol or drug abuse patient.[facility] HospitalIn the event this information is protected by the Federal Confidentiality of Alcohol and Drug Abuse Patient Records regulations: The Federal rules restrict any use of the information to criminally investigate or prosecute any alcohol or drug abuse patient.[facility] HospitalIn the event this information is protected by the Federal Confidentiality of Alcohol and Drug Abuse Patient Records regulations: The Federal rules restrict any use of the information to criminally investigate or prosecute any alcohol or drug abuse patient.[facility] HospitalIn the event this information is protected by the Federal Confidentiality of Alcohol and Drug Abuse Patient Records regulations: The Federal rules restrict any use of the information to criminally investigate or prosecute any alcohol or drug abuse patient.[facility] HospitalIn the event this information is protected by the Federal Confidentiality of Alcohol and Drug Abuse Patient Records regulations: The Federal rules restrict any use of the information to criminally investigate or prosecute any alcohol or drug abuse patient.[facility] HospitalIn the event this information is protected by the Federal Confidentiality of Alcohol and Drug Abuse Patient Records regulations: The Federal rules restrict any use of the information to criminally investigate or prosecute any alcohol or drug abuse patient.[facility] HospitalIn the event this information is protected by the Federal Confidentiality of Alcohol and Drug Abuse Patient Records regulations: The Federal rules restrict any use of the information to criminally investigate or prosecute any alcohol or drug abuse patient.[facility] HospitalIn the event this information is protected by the Federal Confidentiality of Alcohol and Drug Abuse Patient Records regulations: The Federal rules restrict any use of the information to criminally investigate or prosecute any alcohol or drug abuse patient.[facility] HospitalIn the event this information is protected by the Federal Confidentiality of Alcohol and Drug Abuse Patient Records regulations: The Federal rules restrict any use of the information to criminally investigate or prosecute any alcohol or drug abuse patient.[facility] HospitalIn the event this information is protected by the Federal Confidentiality of Alcohol and Drug Abuse Patient Records regulations: The Federal rules restrict any use of the information to criminally investigate or prosecute any alcohol or drug abuse patient.[facility] HospitalIn the event this information is protected by the Federal Confidentiality of Alcohol and Drug Abuse Patient Records regulations: The Federal rules restrict any use of the information to criminally investigate or prosecute any alcohol or drug abuse patient.[facility] HospitalIn the event this information is protected by the Federal Confidentiality of Alcohol and Drug Abuse Patient Records regulations: The Federal rules restrict any use of the information to criminally investigate or prosecute any alcohol or drug abuse patient.[facility] HospitalIn the event this information is protected by the Federal Confidentiality of Alcohol and Drug Abuse Patient Records regulations: The Federal rules restrict any use of the information to criminally investigate or prosecute any alcohol or drug abuse patient.[facility] HospitalIn the event this information is protected by the Federal Confidentiality of Alcohol and Drug Abuse Patient Records regulations: The Federal rules restrict any use of the information to criminally investigate or prosecute any alcohol or drug abuse patient.[facility] HospitalIn the event this information is protected by the Federal Confidentiality of Alcohol and Drug Abuse Patient Records regulations: The Federal rules restrict any use of the information to criminally investigate or prosecute any alcohol or drug abuse patient.[facility] HospitalIn the event this information is protected by the Federal Confidentiality of Alcohol and Drug Abuse Patient Records regulations: The Federal rules restrict any use of the information to criminally investigate or prosecute any alcohol or drug abuse patient.[facility] HospitalIn the event this information is protected by the Federal Confidentiality of Alcohol and Drug Abuse Patient Records regulations: The Federal rules restrict any use of the information to criminally investigate or prosecute any alcohol or drug abuse patient.[facility] the event this information is protected by the Federal Confidentiality of Alcohol and Drug Abuse Patient Records regulations: The Federal rules restrict any use of the information to criminally investigate or prosecute any alcohol or drug abuse patient.[facility] HospitalIn the event this information is protected by the Federal Confidentiality of Alcohol and Drug Abuse Patient Records regulations: The Federal rules restrict any use of the information to criminally investigate or prosecute any alcohol or drug abuse patient.[facility] HospitalIn the event this information is protected by the Federal Confidentiality of Alcohol and Drug Abuse Patient Records regulations: The Federal rules restrict any use of the information to criminally investigate or prosecute any alcohol or drug abuse patient.[facility] HospitalIn the event this information is protected by the Federal Confidentiality of Alcohol and Drug Abuse Patient Records regulations: The Federal rules restrict any use of the information to criminally investigate or prosecute any alcohol or drug abuse patient.[facility] HospitalIn the event this information is protected by the Federal Confidentiality of Alcohol and Drug Abuse Patient Records regulations: The Federal rules restrict any use of the information to criminally investigate or prosecute any alcohol or drug abuse patient.[facility] HospitalIn the event this information is protected by the Federal Confidentiality of Alcohol and Drug Abuse Patient Records regulations: The Federal rules restrict any use of the information to criminally investigate or prosecute any alcohol or drug abuse patient.[facility] HospitalIn the event this information is protected by the Federal Confidentiality of Alcohol and Drug Abuse Patient Records regulations: The Federal rules restrict any use of the information to criminally investigate or prosecute any alcohol or drug abuse patient.[facility] HospitalIn the event this information is protected by the Federal Confidentiality of Alcohol and Drug Abuse Patient Records regulations: The Federal rules restrict any use of the information to criminally investigate or prosecute any alcohol or drug abuse patient.[facility] HospitalIn the event this information is protected by the Federal Confidentiality of Alcohol and Drug Abuse Patient Records regulations: The Federal rules restrict any use of the information to criminally investigate or prosecute any alcohol or drug abuse patient.[facility] HospitalIn the event this information is protected by the Federal Confidentiality of Alcohol and Drug Abuse Patient Records regulations: The Federal rules restrict any use of the information to criminally investigate or prosecute any alcohol or drug abuse patient.[facility] HospitalIn the event this information is protected by the Federal Confidentiality of Alcohol and Drug Abuse Patient Records regulations: The Federal rules restrict any use of the information to criminally investigate or prosecute any alcohol or drug abuse patient.[facility] HospitalIn the event this information is protected by the Federal Confidentiality of Alcohol and Drug Abuse Patient Records regulations: The Federal rules restrict any use of the information to criminally investigate or prosecute any alcohol or drug abuse patient.[facility] HospitalIn the event this information is protected by the Federal Confidentiality of Alcohol and Drug Abuse Patient Records regulations: The Federal rules restrict any use of the information to criminally investigate or prosecute any alcohol or drug abuse patient.[facility] HospitalIn the event this information is protected by the Federal Confidentiality of Alcohol and Drug Abuse Patient Records regulations: The Federal rules restrict any use of the information to criminally investigate or prosecute any alcohol or drug abuse patient.[facility] HospitalIn the event this information is protected by the Federal Confidentiality of Alcohol and Drug Abuse Patient Records regulations: The Federal rules restrict any use of the information to criminally investigate or prosecute any alcohol or drug abuse patient.[facility] HospitalIn the event this information is protected by the Federal Confidentiality of Alcohol and Drug Abuse Patient Records regulations: The Federal rules restrict any use of the information to criminally investigate or prosecute any alcohol or drug abuse patient.[facility] Care Teams (unrecognized sec tion and content) Moulder Operator Relationship Specialty Start Date End Date Shin Arias, DO [address] [place] [address] PCP - General Family Practice 10/28/14 Moulder Operator Relationship Specialty Start Date End Date Shin Arias DO PCP - General Family Medicine 10/03/18 Moulder Operator Relationship Specialty Start Date End Date Shin Arias, DO [address] [facility] [place] [address] PCP - General Family Practice 10/28/14 Moulder Operator Relationship Specialty Start Date End Date Shin Arias, DO [address] [place] [address] PCP - General Family Practice 10/28/14 Moulder Operator Relationship Specialty Start Date End Date Shin Arias, DO [address] [place] [address] PCP - General Family Practice 10/28/14 Moulder Operator Relationship Specialty Start Date End Date Shin Arias, DO [address] [place] [address] PCP - General Family Practice 10/28/14 Moulder Operator Relationship Specialty Start Date End Date Shin Arias, DO [address] [place] [address] PCP - General Family Practice 10/28/14 Moulder Operator Relationship Specialty Start Date End Date Shin Arias, DO [address] [place] [address] PCP - General Family Practice 10/28/14 Moulder Operator Relationship Specialty Start Date End Date Shin Arias, DO [address] [place] [address] PCP - General Family Practice 10/28/14 Moulder Operator Relationship Specialty Start Date End Date Shin Arias, DO [address] [place] [address] PCP - General Family Medicine 10/28/14 Moulder Operator Relationship Specialty Start Date End Date Shin Arias, DO [address] [place] [address] PCP - General Family Medicine 10/28/14 Moulder Operator Relationship Specialty Start Date End Date Shin Arias, DO [address] [place] [address] PCP - General Family Medicine 10/28/14 Moulder Operator Relationship Specialty Start Date End Date Shin Arias, DO [address] [place] [address] PCP - General Family Medicine 10/28/14 Moulder Operator Relationship Specialty Start Date End Date Shin Arias, DO [address] [place] [address] PCP - General Family Medicine 10/28/14 Moulder Operator Relationship Specialty Start Date End Date Shin Arias, DO [address] [place] [address] PCP - General Family Medicine 10/28/14 Moulder Operator Relationship Specialty Start Date End Date Shin Arias, DO [address] [place] [address] PCP - General Family Medicine 10/28/14 Moulder Operator Relationship Specialty Start Date End Date Shin Arias, DO [address] [place] [address] PCP - General Family Medicine 10/28/14 Moulder Operator Relationship Specialty Start Date End Date Shin Arias, DO [address] [place] [address] PCP - General Family Medicine 10/28/14 Moulder Operator Relationship Specialty Start Date End Date Shin Arias, DO [address] [place] [address] PCP - General Family Medicine 10/28/14 Moulder Operator Relationship Specialty Start Date End Date Shin Arias, DO [address] [place] [address] PCP - General Family Medicine 10/28/14 Moulder Operator Relationship Specialty Start Date End Date Shin Arias, DO [address] [place] [address] PCP - General Family Medicine 10/28/14 Moulder Operator Relationship Specialty Start Date End Date Shin Arias, DO [address] [place] [address] PCP - General Family Medicine 10/28/14 Moulder Operator Relationship Specialty Start Date End Date Shin Arias, DO [address] [place] [address] PCP - General Family Medicine 10/28/14 Moulder Operator Relationship Specialty Start Date End Date Shin Arisa, DO [address] [place] [address] PCP - General Family Medicine 10/28/14 Moulder Operator Relationship Specialty Start Date End Date Shin Arias DO [address] [facility] [place] [address] PCP - General Family Medicine 10/28/14 Moulder Operator Relationship Specialty Start Date End Date Shin Arias DO [address] [place] [address] PCP - General Family Medicine 10/28/14 Moulder Operator Relationship Specialty Start Date End Date Shin Arias DO [address] [place] [address] PCP - General Family Medicine 10/28/14 Moulder Operator Relationship Specialty Start Date End Date Shin Arias DO [address] [place] [address] PCP - General Family Medicine 10/28/14 Moulder Operator Relationship Specialty Start Date End Date Shin Arias DO [address] [place] [address] PCP - General Family Medicine 10/28/14 Moulder Operator Relationship Specialty Start Date End Date Shin Arias DO [address] [place] [address] PCP - General Family Medicine 10/28/14 Moulder Operator Relationship Specialty Start Date End Date Shin Arias DO [address] [place] [address] PCP - General Family Medicine 10/28/14 Moulder Operator Relationship Specialty Start Date End Date Shin Arias DO [address] [place], [place] [address] PCP - General Family Medicine 10/28/14 Moulder Operator Relationship Specialty Start Date End Date Shin Arias DO [address] [place], [place] [address] PCP - General Family Medicine 10/28/14 Moulder Operator Relationship Specialty Start Date End Date Shin Arias DO [address] [place], [place] [address] PCP - General Family Medicine 10/28/14 Moulder Operator Relationship Specialty Start Date End Date Shin Arias DO [address] [place], [place] [address] PCP - General Family Medicine 10/28/14 Reason for Visit (unrecogniz ed section and content) Reason Comments Pain C/o bunion on rt chito t, hx of lft foot bunion sx in 2011 and had a bad time with it, has issues with it still, correction problem, has numbness in the toes and [...] deformity of right foot Shin Arias DO [address] [place] [address] Bairon Lofton DPM [address] [facility] [address] [place] [address] Referral ID Status Reason Start Date Expiration Date V isits Requested Visits Authorized [id number] New Request 07/22/2021 08/16/2022 1 1 Reason [...] By Contac t Referred To Contact [facility] Diagnoses SOB (shortness of breath) Procedures SPIROMETRY - BASELINE AND POST DILATOR BRNCDILAT RSPSE SPMTRY PRE&POST-BRNCDILAT ADMN Shin Arias L, DO [address] [place] [address] [facility] [address] [place] [address] Referral ID Status Reason Start Date Expiration Date V isits Requested Visits Authorized [id number] Closed Auto-Generate d Referral 07/19/2022 08/18/2023 1 1 Specialty Diagnoses / Procedures Referred By Contac t Referred To Contact [facility] [place] Diagnoses SOB (shortness of breath) Procedures LUNG VOLUMES Shin Arias L, DO [address] [place] [address] [facility] [address] [place] [address] Referral ID Status Reason Start Date Expiration Date V isits Requested Visits Authorized [id number] Closed Auto-Generate d Referral 07/19/2022 08/18/2023 1 [...] Reason Onset Date Comments Refill Request 09/30/2022 Reason Comments Fax over OV notes and Updated Orders Reason Comments Follow Up C pap supplies Reason Onset Date Comments Refill Request 10/23/2023 Reason Comments Orders Reason Onset Date Comments Refill Request 01/01/2024 Goals (unrecognized section and content) Goals may [...] BE BASED ON THE PRIMARY CLINICAL RECORDS. [employer] provides no warranty or guarantee of the accuracy or completeness of information in this document.
== END 2024-01-23 11:22 | disposition home or self-care (01) ==
LOC: EC 11:22
PROVIDERS: Visit Provider Podiatrist Foot & Ankle Surgery
DX: M79.671 Pain in right foot (principal); M24.674 Ankylosis, right foot
CPT/HCPCS: 73630

== ENCOUNTER 2024-07-17 10:52 | Outpatient (OUT) | payer MEDICARE, SELFPAY ==
--- NOTE | 2024-07-17 10:57 | XR_ITS ---
[facility] [place] [id number] Patient Name: HENRY BROCK MRN: [id number] date: 1955 Sex: F Assigned Patient Location: [facility] Current Patient Location: [facility] Accession/Order Number: [id number] Exam Date: 07/17/2024 23:14 Report Date: 07/17/2024 23:16 At the request of: SIERRA AUGUSTINE DPAlivia Procedure: XR foot RT min 3V RIGHT FOOT - 3 views CLINICAL HISTORY: Right Foot Pain COMPARISON: Right foot 01/23/2024 FINDINGS: No focal soft tissue abnormality. First MTP joint fusion hardware without radiographic complication. Hardware is also seen involving the second metatarsal head without evidence of hardware complication. No acute bony process. No bony erosions. XR/XR foot RT min 3V IMPRESSION: NO HARDWARE COMPLICATION OR ACUTE BONY PROCESS. Impression dictated by: Sigifredo Horton Jr., DMontezOMontez07/17/2024 11:16 PM Dictation Location: [employer] Electronically authenticated by: [id number] Date: 07/17/2024 23:16
--- OUTSIDE RECORDS SUMMARY | 2024-07-17 11:10 | XMS_ITS | CCD ---
Author Organization [facility] Care Team Providers Care Operating Cost Clerk Name Role Phone SHIN SCHWARTZ Unavailable Unavailable IMCA Unavailable Unavailable SHIN ARIAS Unavailable Unavailable AriasShin olson DO Primary Care Provider Shin Arias DO Primary Care Provider ATWAY, SAID A Referring Unavailable SHIN ARIAS Primary Care Unavailable ATWAY, SAID A Attending Unavailable ATWAY, SAID A Attending Unavailable SELF, SELF Referring Unavailable SIHN ARIAS Primary Care Unavailable SHIN ARIAS Primary Care Unavailable ATWAY, SAID A Referring Unavailable SHIN ARIAS Primary Care Unavailable ATWAY, SAID A Attending Unavailable Shin Arias DO Primary Care Provider Shin Arias DO Primary Care Provider Shin Arias DO Primary Care Provider Shin Arias DO Primary Care Provider Sj TRADE SPECIALIST.Jossy BULLOCK Unavailable Javi TRADE SPECIALIST.Ivana BULLOCK Unavailable SHIN ARIAS Attending Unavailable SHIN ARIAS Primary Care Unavailable SHIN ARIAS Referring Unavailable SHIN ARIAS Primary Care Unavailable SHIN ARIAS Attending Unavailable SHIN ARIAS Primary Care Unavailable SHIN ARIAS Attending Unavailable SHIN ARIAS Primary Care Unavailable SHIN ARIAS Attending Unavailable SHIN ARIAS Primary Care Unavailable SHIN ARIAS Referring Unavailable SHIN ARIAS Primary Care Unavailable Shin Arias Referring Unavailable Shin Arias Primary Care Unavailable Arias Shin Attending Unavailable CHRISTOPHER JOHNSTONNDREA Attending Unavailable PRESTON, NAVEED Referring Unavailable AriasShin Primary Care Unavailable CHRISTOPHER JOHNSTONNDREA Attending Unavailable PRESTON, NAVEED Referring Unavailable Arias Shin Primary Care Unavailable Arias Shin Primary Care Unavailable Aishwarya Andino Attending [facility] Shin Referring Unavailable Sukhjinder Herrmann Attending Unavailable [facility] Unavailable Allergies Allergy Classification Reported Allergen(s) Allergy Type Date of Onset Reaction(s) Facility (20 sources) morphine; Translations: [MORPHINE SULFATE] Drug Allergy 5 Itching [facility] Repository (20 sources) sulfamethoxazole; Translations: [SULFAMETHOXAZOLE ] Drug Allergy 5 Hives [facility] Repository (20 sources) tea tree oil; Translations: [TEA TREE OIL] Drug Allergy 0 Rash [facility] Repository (2 sources) Morphine Drug Allergy 5 Itching [facility] (1 source) Trimethoprim Drug Allergy 0 unknown [facility] Work Phone: (1 source) tea tree Allergy to substance 0 unknown [facility] Work Phone: (1 source) Morphine Drug Allergy 4 [facility] Repository (1 source) Trimethoprim Drug Allergy 4 [facility] Repository (1 source) tea tree Drug allergy (disorder) 4 [facility] Repository Medications Current Medications Medication Drug Class(es) Dates Sig (Normalized) Sig (Original) amphetamine aspartate 2.5 mg / amphetamine sulfate 2.5 mg / dextroamphetamine saccharate 2.5 mg / dextroamphetamine sulfate 2.5 mg oral tablet (20 sources) Central Nervous System Stimulant Start: 03-12-2024 End: 05-15-2024 take 1 tablet by mouth once daily dextroamphetamine- amphetamine (ADDERALL) 10 mg tablet Indications: Concentration deficit Take 0.5-1 tablets by mouth once daily for 30 days. 30 tablet 04/15/2024 Active Start: 05-18-2023 End: 02-25-2024 take 1 tablet by mouth once daily dextroamphetamine-amphetamine (ADDERALL) 10 mg tablet Indications: Concentration deficit Take 0.5-1 tablets by mouth once daily for 30 days. 30 tablet 0 06/23/2023 07/14/2023 Discontinued Start: 02-20-2023 End: 05-12-2023 take 1 tablet [...] 0 06/21/2022 09/30/2022 Discontinued Start: 10-22-2021 End: 02-03-2023 take 1 tablet by mouth once daily [...] tablet (20 sources) Vitamin C Start: 08-16-19 18 take 1 tablet by mouth three times daily ascorbic acid, vitamin C, (VITAMIN C) 500 mg tablet Take 1 tablet by mouth three times daily. 270 tablet 3 08/15/2017 Active Comment on above: Take [address] [facility] three times daily. Ca-D3-Mag Bc-Saza-Bdr-Ravi-Bor (Calcium 600-D3 Plus (Mag-Zinc)) 600 mg calcium- 800 unit-50 mg tablet (1 source) Start: 04-01-20 Ca-D3-Mag Lq-Lkdc-Mid-Ravi-Bor (Calcium 600-D3 Plus (Mag-Zinc)) 600 mg calcium- [...] Comment on above: Take 1 capsule by [facility] once daily. CPAP (20 sources) Start: 05-14-2020 [...] (20 sources) Serotonin Reuptake Inhibitor Start: 023 End: 024 take 1 capsule by mouth once daily FLUoxetine (PROZAC) 10 mg capsule Indications: Adjustment insomnia , Anxiety with depression Take 1 capsule by mouth once daily. 90 capsule 1 03/15/2024 Active Start: 11-25-2022 take 1 capsule by mo [facility] once daily FLUoxetine (PROZAC) 10 mg capsule Indications: Adjustment insomnia , Anxiety with depression Take 1 capsule by mouth once daily. 90 capsule 1 11/25/2022 Active Start: 02-04-2021 End: 01-21-2022 take 1 capsule by mouth once daily FLUoxetine (PROZAC) 20 mg capsule Indications: Anxiety with depression , Mood disorder (HCC) Take 1 capsule by mouth once daily. 90 capsule 1 10/22/2021 01/21/2022 Discontinued Start: 10-11-2018 take 30 mg by mouth once daily Fluoxetine Active 30 MG PO DAILY October 10, 2018 11:00pm Start: 10-04-2018 take 3 capsules by m out once daily fluoxetine 10 MG Cap capsule Take 3 capsules by mouth daily. 0 10/04/2018 Active Start: 08-02-2018 End: 10-11-2018 Fluoxetine (Prozac) 40 mg ca psule Discontinued 30 MG PO DAILY August 01, 2018 11:00pm October 11, 2018 8:58am Comment on above: Take 1 capsule by [facility] once daily. 1 ml heparin sodium, porcine [...] Comment on above: Take 1 capsule by [facility] once daily. lisinopril 5 mg oral tablet (1 source) Angiotensin Converting Enzyme Inhibitor Start: 10-05-19 19 take 1 tablet by mouth once daily lisinopril 5 MG Tab tablet Take 1 tablet by mouth daily. 0 10/04/2018 Active magnesium oxide 400 mg oral tablet (9 sources) take 1 tablet by mouth once daily magnesium oxide 400 mg magnesium tab Take 1 tablet by mouth once daily. Active meloxicam 15 mg oral tablet (1 source) Nonsteroidal Anti-inflammatory Drug Start: 04-01-20 take 1 tablet by mouth once daily Meloxicam (Mobic) 15 mg tablet Active 15 MG PO DAILY April 01, 2020 12:00am Do not take in conjunction with other NSAIDs. mometasone furoate 0.001 mg/mg topical ointment (20 sources) Corticosteroid Start: 10-06-19 23 mometasone (ELOCON) [...] And Nails) tablet (1 source) Start: 04-01-20 20 take 1 tablet by mouth once daily Multivitamin With Minerals (Hair,Skin And Nails) tablet Active 1 TABLET PO DAILY April 01, 2020 12:00am mupirocin 0.02 mg/mg topical ointment (20 sources) RNA Synthetase Inhibitor Antibacterial Start: 10-06-19 mupirocin (BACTROBAN) 2 % ointment Indications: Rash and nonspecific skin eruption Apply to affected area twice daily as needed (skin infection). 30 g 10/05/2022 Active Comment on above: Apply to affected ar ea twice daily as needed (skin infection). omega 7-owf-cqc-fish oil (FISH OIL) 100-160-1,000 mg cap (20 sources) omega 3-dha-epa- fish oil (FISH OIL) 100-160-1,000 mg cap Take 1 capsule by mouth. Active omega 3-dha-epa- fish oil (FISH OIL) 100-160-1,000 mg cap Take 1 capsule by mouth. 0 Active Comment on above: Take 1 capsule by mo [facility]. perflutren lipid microspheres 1.3 mL in NaCl [...] Comment on above: Take by mouth. sennosides, mcc 8.6 mg oral tablet (1 source) Start: 10-04-2018 take 1 tablet by mouth once daily in the morning senna 8.6 MG Tab Take 1 tablet by mouth daily every morning. 0 10/04/2018 Active 125 ml sodium chloride 9 mg/ml prefilled syringe (20 sources) Start: 05-19-2022 End: 08-18-2023 sodium chloride 0.9 % (flush) 10 mL (BD POSIFLUSH) thyroid (mcc) 90 mg oral tablet (20 sources) Start: 05-21-2024 take 1 tablet by mouth once daily ARMOUR THYROID 90 mg tablet Indications: Hypothyroidism, unspecified type Take 1 tablet by mouth once daily. 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 90 tablet 1 02/23/2024 Active Start: 05-03-2023 End: 07-14-2023 take 1 tablet by mouth once daily ARMOUR THYROID 60 mg tablet Indications: Hypothyroidism, unspecified type Take 1 tablet by mouth once daily. 90 tablet 1 07/14/2023 Active Start: 08-10-2022 End: 02-07-2023 take 1 [...] take 1 tablet by mouth once daily before breakfast ARMOUR THYROID 90 mg Indications: Hypothyroidism, unspecified type Take 1 tablet by mouth daily before breakfast. 90 tablet 3 12/23/2020 08/07/2021 Discontinued Start: 03-19-2018 End: 08-10-2022 take 1 [...] tablet (20 sources) Serotonin Reuptake Inhibitor Start: 04-15-2024 traZODone (DESYREL) 50 mg tablet Indications: Situational insomnia , Anxiety with depression TAKE 1 TO 2 TABLETS AT BEDTIME FOR SLEEP 90 tablet 1 04/15/2024 Active Start: 12-23-2020 End: 04-13-2024 traZODone (DESYREL) 50 mg ta blet Indications: Situational insomnia , Anxiety with depression TAKE 1 TO 2 TABLETS AT BEDTIME FOR SLEEP 90 tablet 1 07/14/2023 04/13/2024 Discontinued Comment on above: Take 1-2 tablets by mouth daily at bedtime. For sleep TAKE 1 TO 2 TABLETS AT BEDTIME FOR SLEEP Turmeric extract (10 sources) Start: 04-01-2020 Turmeric Active MG PO April 01, 2020 12:00am take 2500 mg by mouth once daily TURMERIC ORAL Take 2,500 mg by mouth once daily. Active Vitamin B Complex (20 sources) take 1 tablet by portia th once daily vitamin B complex (B COMPLEX [...] Take 1 tablet by mouth once daily. 10/15/2018 11/25/2022 Discontinued (Discontinued by Patient) Start: [...] Atorvastatin Discontinued 80 MG PO AT BEDTIME 30 May 29th, 2019 11:00pm November 22, 2018 3:24pm Start: 10-03-2018 [...] 9:49am dexmethylphenidate hydrochloride 5 mg oral tablet (19 sources) Central Nervous System Stimulant Start: 01-23-2021 End: 10-22-2021 take 1 tablet by mouth twice daily dexmethylphenidate HCl (FOCALIN) 5 mg tablet Indications: Concentration deficit Take 1 tablet by mouth twice daily for 30 days. 60 tablet 04/21/2021 05/21/2021 Discontinued Comment on above: Take 1 tablet [...] four times daily as needed for itching/rash. methylPREDNISolone (1 source) Corticosteroid Start: 04-22-2021 End: 04-28-2021 methylPREDNISolone (MEDROL, SELWYN,) 4 mg Dose-Pack Follow dosing instructions, take with food. 21 tablet 04/22/2021 04/28/2021 ondansetron 4 mg disintegrating oral tablet (3 [...] Onset: 09-21-2020 09-21-2020 Chronic Heart valve disorders (20 sources) Tricuspid valve regurgitation; Translations: [Rheumatic tricuspid insufficiency] Onset: 07-15-2023 07-15-2023 Chronic Influenza (1 source) Influenza-like illness; Translations: [Influenza due to unidentified influenza virus with other respiratory manifestations] 01-25-2023 Episodic Miscellaneous mental health disorders (20 sources) Insomnia; Translations: [Other insomnia not due to a substance or known physiological condition] Onset: 12-21-2019 12-21-2019 Chronic Miscellaneous mental health disorders (2 sources) Acute insomnia; Translations: [Adjustment insomnia] 11-25-2022 Episodic [...] unspecified site] Onset: 11-08-2010 08-08-2011 Chronic Other circulatory disease (20 sources) History of cerebellar stroke; Translations: [Personal history of transient ischemic attack (TIA), and cerebral infarction without residual deficits] Onset: 05-11-2022 05-11-2022 Episodic Other congenital anomalies (20 sources) Metatarsus primus varus; 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, unspecified foot] Onset: 09-02-2011 09-02-2011 Chronic Other connective tissue disease (1 source) Pain in both feet; Translations: [Pain in right foot] Episodic Other eye disorders (20 sources) Bilateral vitreous floaters; Translations: [Other vitreous opacities, bilateral] Onset: 02-23-2016 02-23-2016 Chronic Other eye disorders (20 sources) Tear film insufficiency; Translations: [Dry eye syndrome of unspecified lacrimal gland] Onset: 02-23-2016 02-23-2016 Episodic Other liver diseases (5 sources) Alkaline phosphatase raised; Translations: [Abnormal levels of other serum enzymes] Episodic Other lower respiratory disease (3 sources) Dyspnea on exertion; Translations: [Other forms of dyspnea] Onset: 07-19-2022 02-20-2024 Episodic Other lower respiratory disease (2 sources) Other forms of dyspnea; Translations: [CARPENTER (dyspnea on exertion)] Onset: 05-31-2024 Episodic Other nervous system disorders (20 sources) Disturbance of attention; Translations: [Attention and concentration deficit] Onset: 02-28-2017 02-28-2017 Chronic Other nervous system disorders (1 source) Attention and concentration deficit; Translations: [Concentration deficit] Onset: 02-28-2017 Chronic Other nervous system disorders (2 sources) Abnormal gait; Translations: [Unspecified abnormalities of gait and mobility] 10-23-2023 Episodic Other non-traumatic joint disorders (1 source) Chronic pain of right upper limb; Translations: [Pain in right shoulder] Episodic Other non-traumatic joint disorders (1 source) Chronic ankle pain; Translations: [Pain in right ankle and joints of right foot] Episodic Other non-traumatic joint disorders (2 sources) Swollen ankle region; Translations: [Effusion, right ankle] Episodic Other non-traumatic joint disorders (1 source) Pain in right shoulder; Translations: [Pain in joint, shoulder region] 04-22-2021 Episodic Other skin disorders (1 source) Eruption; [...] sources) Diplopia; Translations: [Diplopia] Onset: 01-21-2022 Episodic Cardiac dysrhythmias (2 sources) Palpitations; Translations: [Palpitations] Onset: 02-20-2024 02-20-2024 Episodic Complications of surgical procedures or medical care (1 source) Pseudarthrosis after fusion or arthrodesis; Translations: [Pseudarthrosis after fusion or arthrodesis] Onset: 02-06-2024 Episodic Diabetes mellitus without complication (20 sources) [...] benign neoplasm (20 sources) Dysplastic nevus of skin; Translations: [Melanocytic [...] lumbar region] Onset: 11-01-2016 11-01-2016 Episodic Other bone disease and musculoskeletal deformities (1 source) Other specified disorders of bone density and structure, multiple sites; Translations: [Other specified disorders of bone density and structure, multiple sites] Onset: 11-26-2023 Episodic Other circulatory disease (1 source) Personal [...] ankle] Onset: 07-19-2022 Episodic Other eye disorders (1 source) Dry eye syndrome of bilateral lacrimal glands; Translations: [Dry eye syndrome of both eyes] Onset: 02-23-2016 Episodic Other lower respiratory disease (20 sources) Dyspnea; Translations: [Shortness of breath] Onset: 07-19-2022 Episodic Other nervous system disorders (1 source) Unspecified abnormalities of gait and mobility; Translations: [Gait disorder] Onset: 10-21-2023 Episodic Other non-traumatic joint disorders (20 sources) Pain of left wrist; Translations: [Pain in left wrist] Onset: 09-21-2020 09-21-2020 Episodic Other non-traumatic joint disorders (19 sources) Shoulder joint pain; Translations: [Pain in [...] other hazardous metals] Onset: 03-24-2021 03-24-2021 Episodic Residual codes; unclassified (17 sources) History of operative procedure on foot; Translations: [Other specified postprocedural states] Onset: 10-23-2023 10-23-2023 Episodic Residual codes; unclassified (1 source) Other specified postprocedural states; Translations: [S/P foot surgery, right] Onset: 10-23-2023 Episodic Spondylosis; intervertebral disc disorders; other back problems (20 sources) Chronic low back pain; Translations: [Chronic low back pain] Onset: 11-13-2006 Resolved: 06-28-2007 08-08-2011 Episodic Sprains and strains (20 sources) Neck sprain; Translations: [Sprain of joints and ligaments of unspecified parts of neck, initial encounter] Onset: 10-11-2006 Resolved: 11-11-2013 06-28-2007 Episodic Results Test Name Value Interpretation Reference Range Facility Echo Complete 07-11-2024 Echo [facility] [address] [place] [address] Echo Complete 07/11/24 0904 MR#: [id number] Acct: [id number] Name: HENRY BROCK Rep #: [id number] : 1955 68 From: Aishwarya Andino MD Attending Dr: Dr. Shin Arias DO Status: R EG CLI Ordering Dr: Shin Arias DO Date: 07/11/24 Location: [facility] Sex: F C Admitted: Reason For Study Reason For Study: SOB Procedure This was a 2D Doppler, Color Flow transthoracic echocardiogram. Exam performed in department. Left Ventricle Normal LV size. The estimated ejection fraction is 65 %. No evidence for diastolic dysfunction. No regional wall motion abnormalities noted. Right Ventricle Normal RV size. Normal systolic function. Atria The left and right atria are normal. No doppler evidence for ASD. Mitral Valve There is no mitral valve stenosis. No mitral valve insufficiency. Tricuspid Valve There is no tricuspid stenosis. Mild to moderate (1-2+) tricuspid valve insufficiency. Pulmonary artery systolic pressure is 30 mmHg. Aortic Valve Trisinus/trileaflet aortic valve. There is no aortic stenosis. No aortic valve insufficiency. Pulmonic Valve There is no pulmonic valvular stenosis. No pulmonic valve insufficiency. Great Vessels Normal sized aortic root. Pericardium/Pleural No pericardial effusion. MMode/2D Measurements Calculations LVIDd: 3.9 cm IVSd: 1.1 cm Ao root diam: 3.2 cm LVIDs: 2.0 cm LVPWd: 1.0 cm RVDd: 3.4 cm FS: 48.5 % _ LAV(MOD-bp): 46.2 ml LVAd ap4: 25.6 cm2 LVAd ap2: 24.3 cm2 LAV(MOD-bp) Indexed: 29.3 ml/m2 LVLd ap4: 7.7 cm LVLd ap2: 7.6 cm LAV(MOD-sp2): 43.5 ml EDV(MOD-sp4): 72.0 ml EDV(MOD-sp2): 65.8 ml LAV(MOD-sp4): 50.9 ml EDV(sp4-el): 72.2 ml EDV(sp2-el): 66.3 ml LVAs ap4: 12.7 cm2 LVAs ap2: 13.8 cm2 LVLs ap4: 6.3 cm LVLs ap2: 6.7 cm ESV(MOD-sp4): 23.0 ml ESV(MOD-sp2): 24.4 ml ESV(sp4-el): 21.6 ml ESV(sp2-el): 24.4 ml EF(MOD-sp4): 68.0 % EF(MOD-sp2): 63.0 % EF(sp4-el): 70.1 % _ SV(MOD-sp4): 49.0 ml SV(MOD-sp2): 41.4 ml SV(sp4-el): 50.6 ml SI(MOD-sp4): 31.1 ml/m2 SI(MOD-sp2): 26.3 ml/m2 _ LA A4 area: 18.4 cm2 LA dimension(2D): 3.2 cm RA A4 area: 17.1 cm2 _ TAPSE: 2.9 cm Time Measurements MV dec time: 0.21 sec Doppler Measurements Calculations MV E max yuni: 81.5 cm/sec Lat Peak E' Yuni: 10.2 cm/sec Med Peak E' Yuni: 9.0 cm/sec MV A max yuni: 103.8 cm/sec E/E' lat: 8.0 E/E' med: 9.1 MV E/A: 0.79 _ Ao V2 max: 165.3 cm/sec LV V1 max: 113.9 cm/sec MV dec slope: 379.7 cm/sec2 Ao max P.9 mmHg LV V1 max P.2 mmHg Ao V2 mean: 102.6 cm/sec LV V1 mean P.5 mmHg Ao mean P.9 mmHg LV V1 mean: 73.4 cm/sec Ao V2 VTI: 35.7 cm LV V1 VTI: 26.0 cm AV (velocity ratio): 0.73 _ PA V2 max: 86.7 cm/sec TR max yuni: 268.9 cm/sec TR max P.9 mmHg ECHO/Echo Complete Interpretation Summary The estimated ejection fraction is 65 %. No evidence for diastolic dysfunction. Mild to moderate (1-2+) tricuspid valve insufficiency. Ordering Physician: Shin Arias Referring Physician: Shin Arias Performed By: Grace Davison RDCS 07/12/241404 Date Aishwarya Andino MD CC: Dr. Shin Arias DO Date Dictated: 02/27/25 0904 Date Transcribed: 07/12/24 [id number] R D Manager: Signed Normal [facility] CNOVon 05-31-2024 CNOV Office Visit (FAMPWS ) -------- HENRY BROCK ([id number]) 1955 F Date Time Provider Department 05/31/24 9:40 AM SHIN ARIAS FAMPWS During your visit today, we recorded the following information about you: Temperature Pulse Respiration Blood pressure 98.3 degrees 76/minute 16/minute 120/80 Weight 55.4 kg Shin Arias, 05/31/2024 11:17 AM Signed CC: Henry Brock is a 68 year old female who presents to the office for followu p HPI: Previously Recently had cataract surgery by Dr. Patterson at [facility]. Has had struggles with her vision since these procedures. Has gotten 2nd opinion by Dr. Alma Downing and diagnosed with rosacea in her eyes. She was started on Restasis eye drops- but not able to afford these drops intermediate frame tender. Has had extremely dried and irriated feeling eyes since this started. Has a follow up with Dr. Downing for her eyes at end of the month. Hypothyroidism, was on 60 mg of armour thyroid medication. Was struggling with a lot of symptoms regarding to her thyroid so her dose was increased to 90 mg a day. Thinks this is helping her symptoms. Has had some hair thinning symptoms as well. Taking liquid iodine support 3 drops a day Brain fog and fatigue symptoms. Cardiac murmur, tricuspid regurgitation, moderate/severe on previous ECHO- does get occasional palpitations and dyspnea, otherwise feels well Currently Diagnosed with rosacea of her eyes, struggling with the symptoms. Process Coordinator started her on oral doxycycline and other eye drops due to extreme cost of the Restasis drops Hypothyroidism, was on 60 mg of armour thyroid medication. Was struggling with a lot of symptoms regarding to her thyroid so her dose was increased to 90 mg a day. Thinks this is helping her symptoms. Has had some hair thinning symptoms as well. Taking liquid iodine support 3 drops a day Brain fog and fatigue symptoms. Stable, knows she has a very busy schedule with taking care of her granddaughters Cardiac murmur, tricuspid regurgitation, moderate/severe on previous ECHO- does get occasional palpitations and has noticed increasing symptoms of dyspnea, otherwise feels well. No chest pain or pressure PAST MEDICAL HISTORY Diagnosis Date Abnormal glandular Papanicolaou smear of cervix Abn. Pap smear (cervix) Asymptomatic varicose veins Depressive disorder, not elsewhere classified 09/27/2006 Hearing decreased Hyperlipidemia Hypothyroidism 2010 HERNAN on CPAP DME [facility] Peripheral [...] Current Outpatient Medications Medication Sig ARMOUR THYROID 90 mg tablet Take 1 tablet by mouth once daily. traZODone (DESYREL) 50 mg tablet TAKE 1 TO 2 TABLETS AT BEDTIME FOR SLEEP dextroamphetamine-amphet amine (ADDERALL) 10 mg tablet Take 0.5-1 tablets by mouth once daily for 30 days. FLUoxetine (PROZAC) 10 mg capsule Take 1 capsule by mouth once daily. SPANNER OPERATOR THYROID 90 mg tablet Take 1 tablet by mouth once daily. magnesium oxide 400 mg magnesium tab Take 1 tablet by mouth once daily. TURMERIC ORAL Take 2,500 mg by mouth once daily. Cholecalciferol, Vitamin D3, 125 mcg (5,000 unit) cap Take 1 capsule by mouth once daily. ARMOUR THYROID 60 mg tablet Take 1 tablet by mouth once daily. (Patient not taking: Reported on 02/20/2024) mometasone (ELOCON) 0.1 % ointment Apply to affected area once daily as needed. Once daily as needed on rash mupirocin (BACTROBAN) 2 % ointment Apply to affected area twice daily as needed (skin infection). omega 1-gfm-qkd-fish oil (FISH OIL) 100-160-1,000 mg cap Take [...] 1 tablet by mouth three times daily. (Patient (more content not included)... Normal [facility] ECG COMPLETEon 05-31-2024 ECG COMPLETE Ventricular Rate : 5 4 BPM Atrial Rate : 54 BPM P-R Interval : 180 ms QRS Duration : 84 ms Q-T Interval : 418 ms QTC Calculation(Bazett) : 396 ms Calculated P Dalton : 72 degrees Calculated R Dalton : 31 degrees Calculated T Dalton : 47 degrees SINUS BRADYCARDIA OTHERWISE NORMAL ECG Confirmed by MD EDWARDS GREGORY () on 06/03/2024 8:38:40 AM NAME : HENRY BROCK PID : [id number] : 1955 Gender : Female Race : ORD : [id number] Procedure Date : May 31 2024 10:48:42 Edit Date : Jun 03 2024 08:38:43 Diagnosis: SINUS BRADYCARDIA OTHERWISE NORMAL ECG Confirmed by MD EDWARDS GREGORY () on 06/03/2024 8:38:40 AM Test Reason : R06.09 CARPENTER (dyspnea on exertion) Location : 185 : [facility] Overread By : MD EDWARDS GREGORY Edited By : MD EDWARDS GREGORY Referred By : , Acquired by : [id number], Ana [facility] Urgent Care Visit Reporton 1 06-17-2023 Urgent Care Visit Report [facility] [address], [address] [place], [place] [id number] OFFICE VISIT Date of Service: 04/16/24 MR#: [id number] Acct: [id number] Name: HENRY BROCK Rep #: [id number] : 1955 Provider: CATRACHITO Guzman Age/Sex: 68/F Location[place] [facility] Status: Signed Intake Vital Signs 04/16/24 16:41 BP 118/66 Blood Pressure Location Lt brachial Position Sitting Respiration 15 Pulse 69 Pulse Source NIBP Temp 98.4 F Temp Source Oral Pulse Oximetry (%) 98 Oxygen Delivery Method room air Intake Visit Reasons: BILAT HAND RASH Chief Complaint: bilateral hand rash Computer Science 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 rash is between fingers only. [facility] Medical History (Updated 04/16/24 @ 17:46 by Sukhjinder WINSTON, CATRACHITO) Allergic dermatitis HERNAN on CPAP CVA (cerebral vascular accident) Hypothyroidism Depression Vertigo Benign paroxysmal positional vertigo Chronic neck and back pain Thyroid disease Hay fever Shoulder pain Hemorrhoids Arthritis Surgical History (Updated 10/23/19 @ 14:[address] Andres Martin MD) History of bunionectomy History of surgery on wrist History of tubal ligation History of repair of rotator cuff Family History Father Cancer Lung Mother Hypertension Grandfather Heart disease Sister Cancer Lung Social History (Updated 04/01/20 @ 11:[address] Sigifredo Jessica DO) Smoking Status: Never smoker alcohol intake: never substance use type: does not use HPI HPI Chief Complaint: bilateral hand rash Details: HENRY BROCK, is a 68 F who presents to the office today for bilateral hand intertriginous clustered vesicular lesions x 3 days after having applied local frankincense lotion to the same. No complaints of constricted/pruritic airway or chest pressure/shortness of breath/wheeze. No lryi-phc-kywpani products taken to assist, though patient stated she used an old triamcinolone cream prescription with minimal to no relief. No other associated symptoms and no other alleviating/aggravating factors. ROS Const Constitutional: No other (As above) Exam Const General: cooperative, healthy appearing and no acute distress Chest Chest palpation inspection: normal inspection of the chest Resp Effort Inspection: normal respiratory effort and able to speak in complete sentences Cardio Rate: regular rate Pulses: radial pulses present Skin General: no rashes or lesions noted Other: Except clustered vesicular lesions between left middle finger and left ring finger as well as between right index, right middle, and right ring fingers. Neuro General: patient alert, patient awake and patient oriented x3 Cognition: normal cognition Speech: speech normal Psych Appearance: grossly normal Mental Status: mental status grossly normal Mood: congruent mood Affect: normal affect Speech and Movement: speech and movement normal Attitude: cooperative Coding Level of Care Code Off vis,new,level 3 Diagnoses Allergic dermatitis L23.9 Assessment and Plan Assessment and Plan (1) Allergic dermatitis: Status: Acute Plan: Discontinue use of frankincense lotion. Continue triamcinolone cream as needed. Medrol Dosepak as prescribed today. Yzvi-hwz-kdpuoac antihistamines as needed for symptomatic relief. Follow-up with PCP in 5 to 7 days should symptoms not improved, sooner should symptoms only worsen or any other concerns develop. Patient states acknowledging understanding all the above. This note was generated with MVERSE dictation software. It may contain incorrect words, spelling, and punctuation that were not noted in checking the note before signing. Medications: New methylprednisolone (Medrol ([place])) PO PER PKG DIR 21 tabs 0RF Clinical Quality Measures Falls Risk Screening/Assistive Devices Have you fallen in the past year?: No 04/16/24 7243 Date Sukhjinder Palacios Signature: Date (if applicable) CC: Normal [facility] 02-23-2024 [facility] Telephone (FAMPWS) -------- TEEHENRY ([id number]) 1955 F Date Time Provider Department 02/23/24 [facility]IN [facility] During your visit today, we recorded the following information about you: Breana Saha LPN 02/23/2024 3:39 PM Signed Patient calling asking if PCP could send 90 day rx to [facility] 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 She said that pharmacy has it in stock. She only has a few tablets left of the Amour Thyroid left. Pending rx not sure if correct dose wanted. Needs refills completed. Please advise Shin Arias DO 02/23/2024 4:52 PM Signed The following approved medication requests have been transmitted electronically. Requested Prescriptions Signed Prescriptions Disp Refills SPANNER OPERATOR THYROID 90 mg tablet 90 tablet 1 Sig: Take 1 tablet by mouth once daily. Authorizing Provider: SHIN ARIAS DO Quattrocchi, Beth, LPN 02/23/2024 4:57 PM Signed Phoned patient aware rx sent to pharmacy per PCP with understanding. Allergies As of Date: 02/23/2024 Noted Allergy Reaction BACTRIM (SULFAMETHOXAZOLE) 05/23/2014 4 - Hives MORPHINE SULFATE 03/30/2005 9 - Itching TEA TREE OIL 07/22/2009 2 - Rash Date Reviewed: 02/20/2024 Reviewed by: Kristina Gutierres LPN - Fully Assessed Reason for Visit: Medication Request [138] Order(s):SPANNER OPERATOR THYROID 90 mg tabletTake 1 tablet by mouth once daily.Disp: 90 tabletRfl: 1 Prescriptions as of 02/23/2024 - SPANNER OPERATOR THYROID 90 mg tablet Take 1 tablet by mouth once daily. - magnesium oxide 400 mg magnesium tab Take 1 tablet by mouth once daily. - TURMERIC ORAL Take 2,500 mg by mouth once daily. - ARMOUR THYROID 90 mg tablet Take 1 tablet by mouth once daily. - dextroamphetamine-amphet amine (ADDERALL) 10 mg tablet Take 0.5-1 tablets by mouth once daily for 30 days. - Cholecalciferol, Vitamin D3, 125 mcg (5,000 unit) cap Take 1 capsule by mouth once daily. - ARMOUR THYROID 60 mg tablet Take 1 tablet by mouth once daily. - traZODone (DESYREL) [...] daily as needed (skin infection). - omega 0-zua-bhh-fish oil (FISH OIL) 100-160-1,000 mg cap Take [...] 08/09/2021: .rxe Problem List As Of Date 02/23/2024 Noted Resolved DEPRESSIVE DISORDER NEC [F32.89] 09/27/2006 [...] [M99.03] 11/01/2016 Acute back pain with sciatica [M54.4 (more content not included)... Normal [facility] CNOVon 02-20-2024 CNOV Office Visit (FAMPWS ) -------- HENRY BROCK ([id number]) 1955 F Date Time Provider Department 02/20/24 10:40 AM SHIN ARIAS FAMPWS During your visit today, we recorded the following information about you: Pulse Respiration Blood pressure Weight 60/minute 16/minute 122/74 54.7 kg Shin Arias DO 02/20/2024 1:56 PM Signed CC: Henry Brock is a 68 year old female who presents to the office for follow up HPI: Recently had cataract surgery by Dr. Patterson at [facility]. Has had struggles with her vision since these procedures. Has gotten 2nd opinion by Dr. Alma Downing and diagnosed with rosacea in her eyes. She was started on Restasis eye drops- but not able to afford these drops intermediate frame tender. Has had extremely dried and irriated feeling eyes since this started. Has a follow up with Dr. Downing for her eyes at end of the month. Hypothyroidism, was on 60 mg of armour thyroid medication. Was struggling with a lot of symptoms regarding to her thyroid so her dose was increased to 90 mg a day. Thinks this is helping her symptoms. Has had some hair thinning symptoms as well. Taking liquid iodine support 3 drops a day Brain fog and fatigue symptoms. Cardiac murmur, tricuspid regurgitation, moderate/severe on previous ECHO- does get occasional palpitations and dyspnea, otherwise feels well PAST MEDICAL HISTORY Diagnosis Date Abnormal glandular Papanicolaou smear of cervix Abn. Pap smear (cervix) Asymptomatic varicose veins Depressive disorder, not elsewhere classified 09/27/2006 Hearing decreased Hyperlipidemia Hypothyroidism 2010 HERNAN on CPAP [facility] Peripheral vascular disease, unspecified (HCC) varicose [...] cuff repair Current Outpatient Medications Medication Sig magnesium oxide 400 mg magnesium tab Take 1 tablet by mouth once daily. TURMERIC ORAL Take 2,500 mg by mouth once daily. ARMOUR THYROID 90 mg tablet Take 1 tablet by mouth once daily. dextroamphetamine-amphet amine (ADDERALL) 10 mg tablet Take 0.5-1 tablets by mouth once daily for 30 days. traZODone (DESYREL) 50 mg tablet TAKE 1 TO 2 TABLETS AT BEDTIME FOR SLEEP FLUoxetine (PROZAC) 10 mg capsule Take 1 capsule by mouth once daily. omega 7-ert-smv-fish oil (FISH OIL) 100-160-1,000 mg cap Take 1 capsule by mouth. selenium 200 mcg cap Take by mouth. zinc sulfate (ZINC-15 ORAL) Take by mouth. vitamin B complex (B COMPLEX ORAL) Take 1 tablet by mouth once daily. ascorbic acid, vitamin C, (VITAMIN C) 500 mg tablet Take 1 tablet by mouth three times daily. (Patient taking differently: Take 500 mg by mouth once daily.) Cholecalciferol, Vitamin D3, 125 mcg (5,000 unit) cap Take 1 capsule by mouth once daily. ARMOUR THYROID 60 mg tablet Take 1 tablet by mouth once daily. (Patient not taking: Reported on 02/20/2024) mometasone (ELOCON) 0.1 % ointment Apply to affected area once daily as needed. Once daily as needed on rash mupirocin (BACTROBAN) 2 % ointment Apply to affected area twice daily as needed (skin infection). CPAP Initiate CPAP @ 6 cm of water with humidification. Mask (per patient preference) optional chin strap (if indicated) , filters, tubing, humidifier and lifetime supplies. L-LYSINE ORAL Take 1 capsule by mouth once daily. cyclobenzaprine (FLEXERIL) 10 mg tablet Take 1 tablet by mouth three times daily as needed for Muscle Spasm. PROPYLENE GLYCOL/PEG 400 (BLINK TEARS LUBRICATING) Eye Drops Use 1 Drop in both eyes four times daily. Aspirin 81 mg Tab Take 4 tablets by mouth one time only for 1 dose. (Patient taking differently: Take 81 mg by mouth one time only.) No current facility-administered medications for this visit. ALLERGIES Allergen Reactions Bactrim [Sulfametho* Hives Morphine Sulfate Itching Tea Tree Oil Rash Social History Tobacco Use Smoking status: Former Current packs/day: 0.00 Average packs/day: 1 pack/day for 15.0 years (15.0 ttl pk-yrs) Types: Cigarettes Start date: 02/13/1972 Quit date: 02/12/1987 Years since quittin.0 Smokeless tobacco: Never Vaping Use Vaping status: Never Used Substance Use Topics Alcohol use: No Drug use: No ROS: Gen: Negative fevers or chills. See HPI PE: BP 122/74 Pulse 60 Res (more content not included)... Normal [facility] 02-20-2024 [facility] Telephone (FAMWS) -------- HENRY BROCK ([id number]) 1955 F Date Time Provider Department 02/20/24 SHIN ARIAS [facility] During your visit today, we recorded the following information about you: Kristina Gutierres LPN 02/20/2024 11:52 AM Signed Patient was in for 02/20/24 appointment and forgot to ask about her results for her bone density scan. Copy of result given to patient patient does request provider advise what it says in general terminology. VITA Duque Jordan L, DO 02/20/2024 1:37 PM Signed Please let her know that her bones show that she has thinning which is osteopenia of the bones, but no osteoporosis. Needs to continue her calcium and vitamin D supplements and weight bearing exercise Shin DO Luis Daniel Sanford Kathryn, MA 02/20/2024 2:33 PM Signed Pt notified and voiced understanding. Shanti Cary MA Allergies As of Date: 02/20/2024 Noted Allergy Reaction BACTRIM (SULFAMETHOXAZOLE) 05/23/2014 4 - Hives MORPHINE SULFATE 03/30/2005 9 - Itching TEA TREE OIL 07/22/2009 2 - Rash Date Reviewed: 02/20/2024 Reviewed by: Kristina Gutierres LPN - Fully Assessed Reason for Visit: F/U on Bone Density Results [1260] Prescriptions as of 02/20/2024 - magnesium oxide 400 mg magnesium tab Take 1 tablet by mouth once daily. - TURMERIC ORAL Take 2,500 mg by mouth once daily. - ARMOUR THYROID 90 mg tablet Take 1 tablet by mouth once daily. - dextroamphetamine-amphet amine (ADDERALL) 10 mg tablet Take 0.5-1 tablets by mouth once daily for 30 days. - Cholecalciferol, Vitamin D3, 125 mcg (5,000 unit) cap Take 1 capsule by mouth once daily. - ARMOUR THYROID 60 mg tablet Take 1 tablet by mouth once daily. - traZODone (DESYREL) [...] daily as needed (skin infection). - omega 1-zin-pmu-fish oil (FISH OIL) 100-160-1,000 mg cap Take [...] 08/09/2021: .rxe Problem List As Of Date 02/20/2024 Noted Resolved DEPRESSIVE DISORDER NEC [F32.89] 09/27/2006 [...] lumbar spine [M48.*07/17/2017 Intervertebral disc disorder with radiculopath (more content not included)... Normal [facility] CBC panel Auto (Bld)on 01-29 Erythrocyte distribution width (RBC) [Ratio] 11.9 % Normal 11.5-15.0 [facility] Comment on above: Order Comment: Speci men Type: BLOOD SPECIMENOrdering Facility: [facility] Address: [address] [place] [address] Performed By: #### 5 8410-2 ####[facility] [id number] [place] [address] [place] Hematocrit (Bld) [Volume fraction] 41.2 % Normal 36.0-46.0 [facility] Comment on above: Order Comment: Speci men Type: BLOOD SPECIMENOrdering Facility: [facility] Address: [address] [place] [address] Performed By: #### 5 8410-2 ####[facility] LABIA [id number] [place] [address] [place] Hemoglobin (Bld) [Mass/Vol] 13.9 g/dL Normal 11.5-15.5 [facility] Comment on above: Order Comment: Speci men Type: BLOOD SPECIMENOrdering Facility: [facility] Address: [address] [place] [address] Performed By: #### 5 8410-2 ####[facility] [id number] [place] [address] [place] MCH (RBC) [Entitic mass] 30.3 pg Normal 26.0-34.0 [facility] Comment on above: Order Comment: Speci men Type: BLOOD SPECIMENOrdering Facility: [facility] Address: [address] [place] [address] Performed By: #### 5 8410-2 ####[facility] [id number] [place] [address] [place] MCHC (RBC) [Mass/Vol] 33.7 g/dL Normal 30.5-36.0 [facility] Comment on above: Order Comment: Speci men Type: BLOOD SPECIMENOrdering Facility: [facility] Address: [address] [place] [address] Performed By: #### 5 8410-2 ####[facility] [id number] [place] [address] [place] MCV (RBC) [Entitic vol] 90.0 fL Normal 80.0-100.0 [facility] Comment on above: Order Comment: Speci men Type: BLOOD SPECIMENOrdering Facility: [facility] Address: [address] [place] [address] Performed By: #### 5 8410-2 ####[facility] [id number] [place] [address] [place] Nucleated RBC (Bld) [#/Vol] 10*3/uL Normal <0.01 [facility] Comment on above: Order Comment: Speci men Type: BLOOD SPECIMENOrdering Facility: [facility] Address: [address] [place] [address] Performed By: #### 5 8410-2 ####[facility] LABCLIA [id number] [place] [address] [place] Platelet mean volume (Bld) [Entitic vol] 10.2 fL Normal 9.0-12.7 [facility] Comment on above: Order Comment: Speci men Type: BLOOD SPECIMENOrdering Facility: [facility] Address: [address] [place] [address] Performed By: #### 5 8410-2 ####[facility] [id number] [place] [address] [place] Platelets (Bld) [#/Vol] 183 10*3/uL Normal 150-400 [facility] Comment on above: Order Comment: Speci men Type: BLOOD SPECIMENOrdering Facility: [facility] Address: [address] [place] [address] Performed By: #### 5 8410-2 ####[facility] [id number] [place] [address] [place] RBC (Bld) [#/Vol] 4.58 10*6/uL Normal 3.90-5.20 [facility] Comment on above: Order Comment: Speci men Type: BLOOD SPECIMENOrdering Facility: [facility] Address: [address] [place] [address] Performed By: #### 5 8410-2 ####[facility] [id number] [place] [address] [place] WBC (Bld) [#/Vol] 5.06 10*3/uL Normal 3.70-11.00 [facility] Comment on above: Order Comment: Speci men Type: BLOOD SPECIMENOrdering Facility: [facility] Address: [address] [place] [address] Performed By: #### 5 8410-2 ####[facility] LABCLIA [id number] [place] [address] [place] CNPZainab 01-30-2024 CNPN Telephone (FAMKelliWS) -------- HENRY BROCK ([id number]) 1955 F Date Time Provider Department 01/30/24 SHIN ARIASWS During your visit today, we recorded the following information about you: Lupe Stoll LPN 01/30/2024 8:05 AM Signed Pt. would like CBC added to labs today for fatigue. Ivana Mitchell APRN.ARA 01/30/2024 8:34 AM Signed Additional lab orders placed. Ivana Mitchell APRN.Jaz Daniels MA 01/30/2024 8:51 AM Signed All labs in process Jaz Solis [place] Allergies As of Date: 01/30/2024 Noted Allergy Reaction BACTRIM (SULFAMETHOXAZOLE) 05/23/2014 4 - Hives MORPHINE SULFATE 03/30/2005 9 - Itching TEA TREE OIL 07/22/2009 2 - Rash Date Reviewed: 07/14/2023 Reviewed by: Neri Robles LPN - Fully Assessed Primary Visit Diagnosis:Hypothyroidism , unspecified type [E03.9] Other Visit Diagnoses:Screening for diabetes mellitus [Z13.1] Fatigue, unspecified type [R53.83] Order(s):COMPLETE BLOOD COUNT [SQCBC] Order #: [id number] FUTURE COMPREHENSIVE METABOLIC PANEL [SQCMP] Order #: [id number] FUTURE HEMOGLOBIN A1C [BOHLZ9W] Order #: [id number] FUTURE IRON AND TIBC [SQIRON] Order #: [id number] FUTURE FERRITIN [SQFERR] Order #: [id number] FUTURE Prescriptions as of 01/30/2024 - ARMOUR THYROID 90 mg tablet Take 1 tablet by mouth once daily. - dextroamphetamine-amphet amine (ADDERALL) 10 mg tablet Take 0.5-1 tablets by mouth once daily for 30 days. - Cholecalciferol, Vitamin D3, 125 mcg (5,000 unit) cap Take 1 capsule by mouth once daily. - ARMOUR THYROID 60 mg tablet Take 1 tablet by mouth once daily. - traZODone (DESYREL) [...] daily as needed (skin infection). - omega 3-qmg-kqd-fish oil (FISH OIL) 100-160-1,000 mg cap Take [...] 08/09/2021: .rxe Problem List As Of Date 01/30/2024 Noted Resolved DEPRESSIVE DISORDER NEC [F32.89] 09/27/2006 [...] DDD (degenerative disc disease), lumbar [M51.36]07/17/2017 Hypothyroidism, ac (more content not included)... Normal [facility] Comprehensive metabolic 2000 panelon 01-30-2024 Albumin [Mass/Vol] 4.3 g/dL Normal 3.9-4.9 [facility] Comment on above: Order Comment: Speci men Type: BLOOD SPECIMENOrdering Facility: [facility] Address: [address] [place] [address] Performed By: #### 2 276-4, 51036-7, 15782-0 ####[facility] LABCLIA [id number] [place] [address] [place] ALP [Catalytic activity/Vol] 92 U/L Normal 34-123 [facility] Comment on above: Order Comment: Speci men Type: BLOOD SPECIMENOrdering Facility: [facility] Address: [address] [place] [address] Performed By: #### 2 276-4, 38549-6, 09514-4 ####[facility] LABCLIA [id number] [place] [address] [place] ALT [Catalytic activity/Vol] 20 U/L Normal 7-38 [facility] Comment on above: Order Comment: Speci men Type: BLOOD SPECIMENOrdering Facility: [facility] Address: [address] [place] [address] Performed By: #### 2 276-4, 61438-3, 88580-3 ####[facility] [id number] [place] [id number] [place] Anion gap [Moles/Vol] 10 mmol/L Normal 8-15 [facility] Comment on above: Order Comment: Speci men Type: BLOOD SPECIMENOrdering Facility: [facility] Address: [address] [place] [address] Performed By: #### 2 276-4, 88962-8, 83566-8 ####[facility]CL[facility] [id number] [place] [id number] [place] AST [Catalytic activity/Vol] 24 U/L Normal 13-35 [facility] Comment on above: Order Comment: Speci men Type: BLOOD SPECIMENOrdering Facility: [facility] Address: [address] [place] [address] Performed By: #### 2 276-4, 25185-2, 20062-0 ####[facility] LABCLIA [id number] [place] [address] [place] Bilirubin [Mass/Vol] 0.4 mg/dL Normal 0.2-1.3 [facility] Comment on above: Order Comment: Speci men Type: BLOOD SPECIMENOrdering Facility: [facility] Address: [address] [place] [address] Performed By: #### 2 276-4, 78080-3, 66002-1 ####[facility]CL[facility] [id number] [place] [address] [place] Calcium [Mass/Vol] 9.6 mg/dL Normal 8.5-10.2 [facility] Comment on above: Order Comment: Speci men Type: BLOOD SPECIMENOrdering Facility: [facility] Address: [address] [place] [address] Performed By: #### 2 276-4, 75659-3, 54519-3 ####[facility]CL[facility] [id number] [place] [address] [place] Chloride [Moles/Vol] 104 mmol/L Normal 98-107 [facility] Comment on above: Order Comment: Speci men Type: BLOOD SPECIMENOrdering Facility: [facility] Address: [address] [place] [address] Performed By: #### 2 276-4, 71580-5, 71089-2 ####[facility]CL[facility] [id number] [place] [id number] [place] CO2 [Moles/Vol] 26 mmol/L Normal 22-30 [facility] Comment on above: Order Comment: Speci men Type: BLOOD SPECIMENOrdering Facility: [facility] Address: [address] [place] [id number] Performed By: #### 2 276-4, 81935-3, 86359-9 ####[facility]CL[facility] [id number] [place] [id number] [place] Creatinine [Mass/Vol] 0.57 mg/dL Low 0.58-0.96 [facility] Comment on above: Order Comment: Ciara men Type: BLOOD SPECIMENOrdering Facility: [facility] Address: [address] [place] [address] Performed By: #### 2 276-4, 43081-2, 18871-0 ####[facility] [id number] [place] [address] [place] Creatinine and Glomerular filtration rate.predicted panel (S/P/Bld) 99 mL/min/1.73m??? Normal >=60 [facility] Comment on above: Order Comment: Ciara levine Type: BLOOD SPECIMENOrdering Facility: [facility] Address: [address] [place] [address] Result Comment: Letty mated Glomerular Filtration Rate [...] reflect actual GFR. Performed By: #### 2 276-4, 33708-3, 89681-1 ####[facility] [id number] [place] [id number] [place] Glucose [Mass/Vol] 96 mg/dL Normal 74-99 [facility] Comment on above: Order Comment: Ciara julianna Type: BLOOD SPECIMENOrdering Facility: [facility] Address: [address] [place] [address] Result Comment: The [place] [employer] (ADA) provides guidance for cutoff [...] Standards of Medical Care in Diabetes 2016, [place] [employer]. Diabetes Care. 2016.39(Suppl 1). Performed By: #### 2 276-4, 04818-5, 37742-7 ####[facility] [id number] [place] [address] [place] Potassium [Moles/Vol] 4.2 mmol/L Normal 3.7-5.1 [facility] Comment on above: Order Comment: Speci men Type: BLOOD SPECIMENOrdering Facility: [facility] Address: [address] [place] [address] Performed By: #### 2 276-4, 03001-8, 58370-8 ####[facility] [id number] [place] [address] [place] Protein [Mass/Vol] 6.8 g/dL Normal 6.3-8.0 [facility] Comment on above: Order Comment: Speci men Type: BLOOD SPECIMENOrdering Facility: [facility] Address: [address] [place] [address] Performed By: #### 2 276-4, 00087-3, 15566-9 ####[facility] LABIA [id number] [place] [address] [place] Sodium [Moles/Vol] 140 mmol/L Normal 136-144 [facility] Comment on above: Order Comment: Speci men Type: BLOOD SPECIMENOrdering Facility: [facility] Address: [address] [place] [address] Performed By: #### 2 276-4, 35775-5, 63448-0 ####[facility] LABCLIA [id number] [place] [id number] [place] Urea nitrogen [Mass/Vol] 13 mg/dL Normal 7-21 [facility] Comment on above: Order Comment: Speci men Type: BLOOD SPECIMENOrdering Facility: [facility] Address: [address] [place] [address] Performed By: #### 2 276-4, 07229-0, 79930-8 ####[facility] LABCLIA [id number] [place] [address] [place] Ferritin SerPl-mCncon 2023 Ferritin [Mass/Vol] 183.0 ng/mL Normal 14.7-205.1 [facility] Comment on above: Order Comment: Speci men Type: BLOOD SPECIMENOrdering Facility: [facility] Address: [address] [place] [address] Performed By: #### 2 276-4, 67291-3, 94016-9 ####[facility] LABCLIA [id number] [place] [address] [place] HbA1c (Bld)on 01-30-2024 Average glucose Estimated from glycated hemoglobin (Bld) [Mass/Vol] 105 mg/dL Normal [facility] Comment on above: Order Comment: Speci men Type: BLOOD SPECIMENOrdering Facility: [facility] Address: [address] [place] [address] Result Comment: eAG: (Estimated average glucose) is a calculated value from HgbA1c and is order entry representative of the average blood glucose level in the last 2-3 month period. Performed By: #### 5 5454-3 ####[facility] LABCLIA [id number] [place] [address] [place] HbA1c (Bld) [Mass fraction] 5.3 % Normal 4.3-5.6 [facility] Comment on above: Order Comment: Speci men Type: BLOOD SPECIMENOrdering Facility: [facility] Address: [address] [place] [address] Result Comment: Amer [place] Diabetes Association guidelines indicate that patients with HgbA1c in the range 5.7-6.4% are at increased risk for development of diabetes, and intervention by lifestyle modification may be beneficial. HgbA1c greater or equal to 6.5% is considered diagnostic of diabetes. Performed By: #### 5 5454-3 ####[facility] LABCLIA [id number] [place] [id number] [place] Iron and Iron binding capaci ty panelon 01-30-2024 Iron [Mass/Vol] 103 ug/dL Normal 41-186 [facility] Comment on above: Order Comment: Alexanderi men Type: BLOOD SPECIMENOrdering Facility: [facility] Address: [address] [place] [address] Performed By: #### 2 276-4, 98213-3, 98589-7 ####[facility] LABIA [id number] [place] [address] [place] Iron binding capacity [Mass/Vol] 272 ug/dL Normal 232-386 [facility] Comment on above: Order Comment: Alexanderi men Type: BLOOD SPECIMENOrdering Facility: [facility] Address: [address] [place] [address] Performed By: #### 2 276-4, 42969-4, 96537-9 ####[facility] LABCLIA [id number] [place] [id number] [place] Iron/TIBC [Molar ratio] 37.9 % Normal 15.0-57.0 [facility] Comment on above: Order Comment: Speci men Type: BLOOD SPECIMENOrdering Facility: [facility] Address: [address] [place] [address] Performed By: #### 2 276-4, 65341-3, 45576-1 ####[facility] LABCLIA [id number] [place] [id number] [place] T3Free SerPl-mCncon 01-30-20 24 Free T3 [Mass/Vol] 4.8 pg/mL High 2.3-4.1 [facility] Comment on above: Order Comment: Speci men Type: BLOOD SPECIMENOrdering Facility: [facility] Address: [address] [place] [address] Performed By: #### 3 024-7, 3051-0, 3016-3 ####[facility] LABIA [id number] [place] [address] [place] T4 Free SerPl-mCncon 024 Free T4 [Mass/Vol] 1.2 ng/dL Normal 0.9-1.7 [facility] Comment on above: Order Comment: Speci men Type: BLOOD SPECIMENOrdering Facility: [facility] Address: [address] [place] [address] Performed By: #### 3 024-7, 3051-0, 3016-3 ####[facility] LABIA [id number] [place] [address] [place] TSH SerPl-aCncon 01-30-2024 TSH Qn 1.020 m[IU]/L Normal 0.270-4.200 [facility] Comment on above: Order Comment: Speci men Type: BLOOD SPECIMENOrdering Facility: [facility] Address: [address] [place] [address] Performed By: #### 3 024-7, 3051-0, 3016-3 ####[facility] LABIA [id number] [place] [address] [place] Bailey 01-26-2024 CNPN Telephone (FAMPWS) -------- HENRY BROCK ([id number]) 1955 F Date Time Provider Department 01/26/24 SHIN ARIAS During your visit today, we recorded the following information about you: Alivia Fagan RN 01/26/2024 10:04 AM Signed Patient phoned asking pcp to order the 90 mg armour thyroid (pended), just until she see's you at next appt on 02-20-24. Reports she only has 2 pills left. Reports she is having a lot of issues: hair falling out, and other things, and is pretty sure it's related to her thyroid. Asking provider to also order Thyroid labs. Pended. Also requesting refill on adderall. Pended. JESUS MANUEL Caballero. Last ov: 10-21-23 Next ov: 02-20-24 Ivana Mitchell APRN.CNP 01/26/2024 10:39 AM Signed Orders placed for thyroid labs as well. The following approved medication requests have been transmitted electronically. Requested Prescriptions Signed Prescriptions Disp Refills ARMOUR THYROID 90 mg tablet 30 tablet 0 Sig: Take 1 tablet by mouth once daily. Authorizing Provider: IVANA MITCHELL dextroamphetamine-amphet amine (ADDERALL) 10 mg tablet 30 tablet 0 Sig: Take 0.5-1 tablets by mouth once daily for 30 days. Authorizing Provider: IVANA MITCHELL APRN.TRADE SPECIALIST PDMP website checked and validated. All prescriptions have been APPROPRIATELY filled. No suspicious activity was identified. 01/26/2024 by Ivana Mitchell CNP. Shanti Cray MA 01/26/2024 11:59 AM Signed Message left notifying prescriptions were refilled and lab orders placed . Shanti Cary MA Allergies As of Date: 01/26/2024 Noted Allergy Reaction BACTRIM (SULFAMETHOXAZOLE) 05/23/2014 4 - Hives MORPHINE SULFATE 03/30/2005 9 - Itching TEA TREE OIL 07/22/2009 2 - Rash Date Reviewed: 07/14/2023 Reviewed by: Neri Robles LPN - Fully Assessed Reason for Visit: Patient Question [5927] Primary Visit Diagnosis:Hypothyroidism , unspecified type [E03.9] Other Visit Diagnosis:Concentration deficit [R41.840] Order(s):ARMOUR THYROID 90 mg tabletTake 1 tablet by mouth once daily.Disp: 30 tabletRfl: 0 dextroamphetamine-amphet amine (ADDERALL) 10 mg tabletTake 0.5-1 tablets by mouth once daily for 30 days.Disp: 30 tabletRfl: 0 THYROID STIMULATING HORMONE [SQTSH] Order #: [id number] FUTURE T3, FREE [SQFREET3] Order #: [id number] FUTURE T4 FREE/FREE THYROXINE [SQFT4] Order #: [id number] FUTURE Prescriptions as of 01/26/2024 - ARMOUR THYROID 90 mg tablet Take 1 tablet by mouth once daily. - dextroamphetamine-amphet amine (ADDERALL) 10 mg tablet Take 0.5-1 tablets by mouth once daily for 30 days. - Cholecalciferol, Vitamin D3, 125 mcg (5,000 unit) cap Take 1 capsule by mouth once daily. - ARMOUR THYROID 60 mg tablet Take 1 tablet by mouth once daily. - traZODone (DESYREL) [...] daily as needed (skin infection). - omega 7-iat-lun-fish oil (FISH OIL) 100-160-1,000 mg cap Take [...] 08/09/2021: .rxe Problem List As Of Date 01/26/2024 Noted Resolved DEPRESSIVE DISORDER NEC [F32.89] 09/27/2006 [...] Rotator cuff (capsule) sprain [S43.429A] 05/23/2012 11/11/2013 Insomn (more content not included)... Normal [facility] Dexa Bone Density Studyon Dexa Bone Density Study [facility] Imaging Services [address] [place], [place] [id number] Dexa Bone Density Study MR#: [id number] Acct: [id number] Name: HENRY BROCK [place] Rep #: [id number] : 1955 F 68 From: Espinoza thompson MD PCP: Dr. Shin Arias, DO Status: REG CLI Study: Dexa Bone Density Study Date of Exam: 11/07/23 Exam# [id number] Ordering Dr: EVARISTO CROFT [id number] STUDY: DUAL ENERGY X-RAY ABSORPTIOMETRY / DXA [...] at 8:51 EDT , CC: Dr. Shin Arias, ; EVARISTO CROFT R D Manager: Signed [facility] Bailey 10-25-2023 [facility] Telephone [facility] -------- HENRY BROCK ([id number]) 1955 F Date Time Provider Department 10/25/23 SHIN ARIAS [facility] During your visit today, we recorded the following information about you: Breana Saha LPN 10/25/2023 2:40 PM Signed Patient calling asking if order for CPAP supplies had been faxed to [facility]. Patient said [facility] needs copy of office visit notes from 10/21/2023 visit and order faxed to [phone]. Pending order with diagnosis to file. Please advise Jossy Gustafson APRN.ARA 10/26/2023 1:23 PM Signed Order printed and [...] sleep apnea) [G47.33] Order(s):CPAP DEVICE, WITH HUMIDIFIER [C4058EDI] Order #: [id number] Prescriptions as of 10/27/2023 - Cholecalciferol, Vitamin [...] daily as needed (skin infection). - omega 5-ncr-bul-fish oil (FISH OIL) 100-160-1,000 mg cap Take [...] bilateral [I65.03] (more content not included)... Normal [facility] CNOVon 10-21-2023 [facility] -------- HENRY BROCK ([id number]) 1955 F Date Time Provider Department 10/21/23 10:40 AM SHIN ARIAS [facility] During your visit today, we recorded the following information about you: Temperature Pulse Respiration Blood pressure 97.3 degrees 76/minute 16/minute 120/68 Weight 55.3 kg Shin Arias, DO 10/21/2023 11:21 AM Signed Bone stimulator ??? Ask Dr. Urias if this is needed Protein pea powder or whey powder - scoop into milk or water once a day Transparent labs brand or Organic Bone broth daily drink Shin Arias DO 10/23/2023 7:32 AM Signed CC: Henry J Tee is a 68 year old female who presents to the office for follow up HPI: She is overall doing well She is post operative from her right foot 1st MTP fusion surgery by Cardiology Rn Dr. Urias. She is in a walking [...] still off work post op from her [employer] job [place], she has been compliant with her CPAP/Bipap. She is going to trial a few masks to see what seems to fit best at this time with weight fluctuations. She is going to be changing to [employer] at this time. She uses the mask/machine and gives her benefit for her sleep and wellness in the morning and daytime PAST MEDICAL HISTORY Diagnosis Date Abnormal glandular Papanicolaou smear of cervix Abn. Pap smear (cervix) Asymptomatic varicose veins Depressive disorder, not elsewhere classified 09/27/2006 Hearing decreased Hyperlipidemia Hypothyroidism 2010 HERNAN on CPAP [facility] Peripheral vascular disease, unspecified (HCC) varicose [...] twice daily as needed (skin infection). omega 4-viu-bbz-fish oil (FISH OIL) 100-160-1,000 mg cap Take [...] or drainag (more content not included)... Normal [facility] Bailey 10-20-2023 CNPN Telephone (FAMPWS) -------- TEEHENRY J ([id number]) 1955 F Date Time Provider Department 10/20/23 SHIN ARIAS During your visit today, we recorded the following information about you: Laury Pierre, SHAHAB 10/20/2023 1:39 PM Signed Francia from [facility] called in and reports Pt is going to be getting their CPAP supplies through them now. She was asking to have OV notes and updated orders faxed to # [phone]. I did not see orders, or mention of Pts CPAP in any recent notes with PCP. I tried calling Pt to see if she had talked with provider about switching CPAP supplies from [facility] to [facility]. I didn't see any messages in the computer where the Pt had called in asking for supplies to be switched, so called Pt to verify. Pt may need to come in and be seen by provider as there is nothing in notes about CPAP. Jossy Gustafson APRN.TRADE SPECIALIST 10/20/2023 3:10 PM Signed Would recommend virtual [...] - Rash Date Reviewed: 07/14/2023 Reviewed by: Nrei Robles LPN - Fully Assessed Reason for [...] daily as needed (skin infection). - omega 4-sut-sff-fish oil (FISH OIL) 100-160-1,000 mg cap Take [...] Mood disor (more content not included)... Normal [facility] Extremity Lower without Cont raon 10-18-2023 Extremity Lower without Contra [facility] Imaging Services [address] [address] [place], [place] [id number] Extremity Lower without Contra MR#: [id number] Acct: [id number] Name: HENRY BROCK Rep #: [id number] : 1955 F 68 From: Jared Yost MD PCP: Dr. Shin Arias DO Status: REG CLI Study: Extremity Lower without Contra Date of Exam: 0 10/18/23 Exam# [id number] Ordering Dr: EVARISTO CROFT [id number] EXAM: CT RIGHT LOWER EXTREMITY WITHOUT INTRAVENOUS [...] CC: EVARISTO CROFT; Dr. Shin Arias DO R D Manager: Signed [facility] 10-03-2023 [facility] Telephone (FAMPWS) -------- HENRY BROCK ([id number]) 1955 F Date Time Provider Department 10/03/23 SHIN ARIAS During your visit today, we recorded the following information about you: Leeann Argueta LPN 10/03/2023 4:28 PM Signed Pt calls to report she had foot surgery in July. Dr. Gui Urias (prison classification counselor) has pt off work another month and advised pt not to walk too much. Pt is asking if pcp would write a rx for a handicap placard. Pt reports Dr. Urias also wants pt to get a dexa scan and a CT of foot and is going to sent report to pcp office. Please review and advise. VITA Bess Jordan L, DO 10/03/2023 4:[address] Urias ordering this testing? Handicap placard is now printed for her DO Timoteo Yarbrough Linda M, LPN 10/04/2023 9:35 AM Addendum Spoke with pt gave information provided . Pt voices understanding. Pt states he said he was going to send yourself a note . She does not know if he meant to schedule those or not. But she has not heard he ordered it. Pt will slate picker handicap letter today . Will take script down to [facility] for slate picker. Leeann Argueta LPN 02/06/2024 12:06 PM Signed Pt's chart shows testing was completed. Leeann Argueta LPN Allergies As of Date: 10/03/2023 Noted Allergy Reaction BACTRIM (SULFAMETHOXAZOLE) 05/23/2014 4 - Hives MORPHINE SULFATE 03/30/2005 9 - Itching TEA TREE OIL 07/22/2009 2 - Rash Date Reviewed: 07/14/2023 Reviewed by: Neri Robles LPN - Fully Assessed Reason for Visit: handicap placard [Other] Primary Visit Diagnosis:Gait disorder [R26.9] Order(s):PARKING FOR HANDICAPPED [0942428] Order #: [id number] Prescriptions as of 02/06/2024 - ARMOUR THYROID 90 mg tablet Take 1 tablet by mouth once daily. - dextroamphetamine-amphet amine (ADDERALL) 10 mg tablet Take 0.5-1 tablets by mouth once daily for 30 days. - Cholecalciferol, Vitamin D3, 125 mcg (5,000 unit) cap Take 1 capsule by mouth once daily. - ARMOUR THYROID 60 mg tablet Take 1 tablet by mouth once daily. - traZODone (DESYREL) [...] daily as needed (skin infection). - omega 4-bcc-can-fish oil (FISH OIL) 100-160-1,000 mg cap Take [...] 08/09/2021: .rxe Problem List As Of Date 10/03/2023 Noted Resolved DEPRESSIVE DISORDER NEC [F32.89] 09/27/2006 [...] *11/01/2016 Somatic dysfunction of pelvic region [M99.05] more content not included)... Normal [facility] CNPZainab 07-15-2023 CNPN Telephone (FAMPWS) -------- HENRY BROCK ([id number]) 1955 F Date Time Provider Department 07/15/23 SHIN ARIASWS During your visit today, we recorded the [...] daily as needed (skin infection). - omega 9-vbb-uiv-fish oil (FISH OIL) 100-160-1,000 mg cap Take [...] 03/24/2021 Hy (more content not included)... Normal [facility] T3 FREE BLDon 07-15-2023 Free T3 [Mass/Vol] 3.1 pg/mL 2.3 - 4.1 pg/mL [facility] T4 FREE/FREE THYROXon 2023 Free T4 [Mass/Vol] 1.1 ng/dL 0.9 - 1.7 ng/dL [facility] TSH BLDon 07-15-2023 TSH Qn 1.210 m[IU]/L 0.270 - 4.200 mIU/L [facility] CNOVon 07-14-2023 CNOV Office Visit (FAMPWS ) -------- HENRY BROCK ([id number]) 1955 F Date Time Provider Department 07/14/23 3:40 PM SHIN ARI[facility] During your visit today, we recorded the following information about you: Pulse Respiration Blood pressure Weight 63/minute 16/minute 130/84 55.3 kg Shin Arias DO 07/15/2023 7:19 AM Signed CC: Henry Brock is a 67 year old female who [...] this brings her melyssa. 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 Interested in seeing Cardiology Rn at [facility]. Currently She is going to be having [...] with medication. Has great support from her advent family PAST MEDICAL HISTORY Diagnosis Date Abnormal glandular Papanicolaou smear of cervix Abn. Pap smear (cervix) Asymptomatic varicose veins Depressive disorder, not elsewhere classified 09/27/2006 Hearing decreased Hyperlipidemia Hypothyroidism 2010 HERNAN on CPAP DME [facility] Peripheral [...] twice daily as needed (skin infection). omega 4-esf-spo-fish oil (FISH OIL) 100-160-1,000 mg cap Take [...] Use: Nev (more content not included)... Normal [facility] T3Free SerPl-mCncon 07-14-19 24 Free T3 [Mass/Vol] 3.1 pg/mL Normal 2.3-4.1 [facility] Comment on above: Order Comment: Speci men Type: BLOOD SPECIMENOrdering Facility: [facility] Address: [address] [place] [address] Performed By: #### 3 051-0, 3024-7, 3016-3 ####[facility] LABCLIA [id number] [facility] [place] [address] [place] T4 Free SerPl-mCncon 024 Free T4 [Mass/Vol] 1.1 ng/dL Normal 0.9-1.7 [facility] Comment on above: Order Comment: Speci men Type: BLOOD SPECIMENOrdering Facility: [facility] Address: [address] [place] [address] Performed By: #### 3 051-0, 3024-7, 3016-3 ####[facility] LABCLIA [id number] [address] [place] TSH SerPl-aCncon 07-14-2023 TSH Qn 1.210 m[IU]/L Normal 0.270-4.200 [facility] Comment on above: Order Comment: Speci men Type: BLOOD SPECIMENOrdering Facility: [facility] Address: [address] [place] [address] Performed By: #### 3 051-0, 3024-7, 3016-3 ####[facility] LABCLIA [id number] [address] [place] [facility] Telephone (FAMPWS) -------- HENRY BROCK ([id number]) 1955 F Date Time Provider Department 07/10/23 SHIN ARIAS [facility] During your visit today, we recorded the following information about you: Alivia Fagan RN 07/10/2023 10:36 AM Signed Faxed most recent EKG results to [facility] Pre Surgical dept, per [facility] request. . [...] daily as needed (skin infection). - omega 4-wnm-aqe-fish oil (FISH OIL) 100-160-1,000 mg cap Take [...] Exposure t (more content not included)... Normal [facility] CNPNon 07-06-2023 [facility] Telephone (FAMPWS) -------- HENRY BROCK ([id number]) 1955 F Date Time Provider Department 07/06/23 SHIN ARIAS [facility] During your visit today, we recorded the following information about you: Shin Arias DO 07/06/2023 10:54 AM Signed Patient stated that she was needin to be seen earlier due to surgery upcoming Okay to schedule on Monday07/14/23 at 340 through 420 pm if this is still available and works for the patient DO Timoteo Yarbrough Linda M, VITA 07/06/2023 11:17 AM Signed Would you mind [...] daily as needed (skin infection). - omega 3-sra-mun-fish oil (FISH OIL) 100-160-1,000 mg cap Take [...] occlusion of (more content not included)... Normal [facility] 06-09-2023 [facility] Telephone (FAMPST) -------- HENRY BROCK ([id number]) 1955 F Date Time Provider Department 06/09/23 SHIN ARIAS During your visit today, we recorded the following information about you: Mary Jo Alcantara 06/09/2023 4:24 PM Signed Tawana is calling Shin Arias DO today to request a RX to start generic synthroid as the Rosamond thyroid has become too expensive. Patient has not picked up that RX from [facility] as it was to costly. Please send the levothyroxine to [facility] if provider agrees. Patient is almost out [...] calling: self Call patient at: on cell [phone] (home) [phone] (work) [phone] (cell) Was an appointment scheduled: No Closing statement: Results or non-symptom based questions: Thank you for calling [facility], your call will be returned within the next business day. Mary Jo Pitt [facility] Alivia Fagan RN 06/12/2023 9:27 AM Signed Pt wants to cancel this request. States she wants to stick with the Rosamond thyroid for now. Allergies As of Date: [...] daily as needed (skin infection). - omega 7-csw-wxq-fish oil (FISH OIL) 100-160-1,000 mg cap Take [...] right-sided *11/01/2016 (more content not included)... Normal [facility] Influenza virus A and B RNA and SARS-CoV-2 (COVID-19) N gene panel TAYLER+probe (Resp)on 01-26-2023 FLUAV RNA TAYLER+probe Ql (Unsp spec) Not detected Not Detected [facility] FLUBV RNA TAYLER+probe Ql (Unsp spec) Not detected Not Detected [facility] SARS-CoV-2 (COVID-19) RNA TAYLER+probe Ql (Resp) Detected Abnormal See comment [facility] STREP A MOLECULAR (POC)on Procedural Control Valid [facility] Strep A (POCT) Negative Negative [facility] XR Ankle - right AP and Late ral and obliqueon 06-07-2022 IMPRESSION: 1. Mild medial soft tissue swelling. 2. No radiographic evidence of acute osseous abnormality. R D Manager: JENNIFER Transcribe Date/Time: Jun 07 2022 1:58P Dictated by : KAY CR MD This examination was interpreted and the report reviewed and electronically signed by: KAY CR MD on Jun 07 2022 1:59PM [facility] DIVISION OF RADIOLOGY * * *Final Report* * * DATE OF EXAM: Jun 06 2022 11:36AM WOX [id number] - XR ANKLE 3V AP/LAT/OBL RT / PROCEDURE REASON: Right ankle swelling * * * * Physician Interpretation * * * * TITLE: XR ANKLE 3V AP/LAT/OBL RT CLINICAL INDICATION: Ankle swelling TECHNIQUE: 3 view radiographic study of the right ankle COMPARISON: Correlation made to right foot radiograph dated July 23, 2019 FINDINGS: Mild medial soft tissue swelling. No acute fracture or dislocation identified. Joint spaces preserved. DIVISION OF RADIOLOGY Provider, [facility] - 06/07/2022 * * *Final Report* * * DATE OF EXAM: Jun 06 2022 11:36AM WOX [id number] - XR ANKLE 3V AP/LAT/OBL RT / PROCEDURE REASON: Right ankle swelling * * * * Physician Interpretation * * * * TITLE: XR ANKLE 3V AP/LAT/OBL RT CLINICAL INDICATION: Ankle swelling TECHNIQUE: 3 view radiographic study of the right ankle COMPARISON: Correlation made to right foot radiograph dated July 23, 2019 FINDINGS: Mild medial soft tissue swelling. No acute fracture or dislocation identified. Joint spaces preserved. IMPRESSION IMPRESSION: 1. Mild medial soft tissue swelling. 2. No radiographic evidence of acute osseous abnormality. R D Manager: [facility] Transcribe Date/Time: Jun 07 2022 1:58P Dictated by : KAY CR MD This examination was interpreted and the report reviewed and electronically signed by: KAY CR MD on Jun 07 2022 1:59PM EST [facility] XR Ankle - right AP and Late ral and obliqueOrdered By: Ccf Provider on 06-07-2022 [facility] XR Ankle - right AP and Late ral and obliqueon 06-06-2022 Radiology Study observation (narrative) [facility] Hepatic function 2000 panelo n 05-20-2022 Albumin [Mass/Vol] 3.9 g/dL 3.9 - 4.9 g/dL [facility] ALP [Catalytic activity/Vol] 99 U/L 34 - 123 U/L [facility] ALT [Catalytic activity/Vol] 15 U/L 7 - 38 U/L [facility] AST [Catalytic activity/Vol] 21 U/L 13 - 35 U/L [facility] Bilirubin [Mass/Vol] 0.2 mg/dL 0.2 - 1.3 mg/dL [facility] Bilirubin.conjugate d [Mass/Vol] <0.2 mg/dL [facility] Protein [Mass/Vol] 6.6 g/dL 6.3 - 8.0 g/dL [facility] Influenza virus A and B RNA and SARS-CoV-2 (COVID-19) N gene panel TAYLER+probe (Resp)on 05-20-2022 FLUAV RNA TAYLER+probe Ql (Unsp spec) Negative Negative for Influenza A by RT-PCR [facility] FLUBV RNA TAYLER+probe Ql (Unsp spec) Negative Negative for Influenza B by RT-PCR [facility] SARS-CoV-2 (COVID-19) RNA TAYLER+probe Ql (Resp) SARS-CoV-2 (Agent of COVID-19) Not Detected by RT-PCR or equivalent method. Not Detected [facility] CBC W Auto Differential pane l (Bld)on 05-19-2022 Basophils (Bld) [#/Vol] 0.03 10*3/uL <0.11 k/uL [facility] Basophils/100 WBC (Bld) 0.5 % [facility] Differential cell count method Nom (Bld) Auto [facility] Eosinophils (Bld) [#/Vol] 0.08 10*3/uL <0.46 k/uL [facility] Eosinophils/100 WBC (Bld) 1.4 % [facility] Erythrocyte distribution width (RBC) [Ratio] 11.5 % 11.5 - 15.0 % [facility] Hematocrit (Bld) [Volume fraction] 40.3 % 36.0 - 46.0 % [facility] Hemoglobin (Bld) [Mass/Vol] 13.4 g/dL 11.5 - 15.5 g/dL [facility] Immature granulocytes (Bld) [#/Vol] <0.10 k/uL [facility] Immature granulocytes/100 WBC (Bld) 0.3 % [facility] Lymphocytes (Bld) [#/Vol] 1.92 10*3/uL 1.00 - 4.00 k/uL [facility] Lymphocytes/100 WBC (Bld) 33.3 % [facility] MCH (RBC) [Entitic mass] 29.8 pg 26.0 - 34.0 pg [facility] MCHC (RBC) [Mass/Vol] 33.3 g/dL 30.5 - 36.0 g/dL [facility] MCV (RBC) [Entitic vol] 89.6 fL 80.0 - 100.0 fL [facility] Monocytes (Bld) [#/Vol] 0.30 10*3/uL <0.87 k/uL [facility] Monocytes/100 WBC (Bld) 5.2 % [facility] Neutrophils (Bld) [#/Vol] 3.41 10*3/uL 1.45 - 7.50 k/uL [facility] Neutrophils/100 WBC (Bld) 59.3 % [facility] Nucleated RBC (Bld) [#/Vol] <0.01 k/uL [facility] Nucleated RBC/100 WBC (Bld) [Ratio] 0.0 /100 WBC [facility] Platelet mean volume (Bld) [Entitic vol] 10.4 fL 9.0 - 12.7 fL [facility] Platelets (Bld) [#/Vol] 206 10*3/uL 150 - 400 k/uL [facility] RBC (Bld) [#/Vol] 4.50 10*6/uL 3.90 - 5.2 0 m/uL [facility] WBC (Bld) [#/Vol] 5.76 10*3/uL 3.70 - 11. 00 k/uL [facility] XR FOOT LEFT 3 VIEWSon 07-29 [...] surgery at the second PIP joint Normal [facility] XR FOOT RIGHT 3 VIEWSon 07-13 [...] joint osteoarthritis No acute osseous abnormality Normal [facility] XR Foot - left 3 Viewson [...] prior surgery at the second PIP joint [facility] Radiology Study observation (narrative) [facility] XR Foot - right 3 Viewson [...] interphalangeal joint osteoarthritis No acute osseous abnormality [facility] Radiology Study observation (narrative) [facility] XR Foot - right 3 ViewsOrder ed By: Andria Bermudez on 07-29-2021 [facility] Work Phone: XR Shoulder - right 3 Viewso n 04-22-2021 IMPRESSION: Mild glenohumeral osteoarthrosis. R D Manager: JENNIFER Transcribe Date/Time: Apr 22 2021 2:06P Dictated by : JOYCE HAGEN MD This examination was interpreted and the report reviewed and electronically signed by: JOYCE HAGEN MD on Apr 22 2021 2:07PM [facility] DIVISION OF RADIOLOGY * * *Final Report* * * DATE OF EXAM: Apr 22 2021 11:10AM WOX 5253 - XR SHLDR >/=3V AP/MURPHY AP/OTHR RT / PROCEDURE REASON: Acute pain of right shoulder * * * * Physician Interpretation * * * * Right shoulder radiographs HISTORY: 65 years old Clinical information: Acute pain of right shoulder pain all across the the posterior side of right shoulder from neck to shoulder joint, limited rom, going on for 3 days no inj TECHNIQUE: Images: XR SHLDR >/=3V AP/MURPHY AP/OTHR RT Comparison: None. RESULT: Findings: Glenohumeral joint space is maintained. Osteophyte formation involving medial inferior humeral head. Acromioclavicular joint space is maintained. Possible os acromion. DIVISION OF RADIOLOGY Provider, [facility] Shameka [facility] - 04/22/2021 * * *Final Report* * * DATE OF EXAM: Apr 22 2021 11:10AM WOX 5253 - XR SHLDR >/=3V AP/MURPHY AP/OTHR RT / PROCEDURE REASON: Acute pain of right shoulder * * * * Physician Interpretation * * * * Right shoulder radiographs HISTORY: 65 years old Clinical information: Acute pain of right shoulder pain all across the the posterior side of right shoulder from neck to shoulder joint, limited rom, going on for 3 days no inj TECHNIQUE: Images: XR SHLDR >/=3V AP/MURPHY AP/OTHR RT Comparison: None. RESULT: Findings: Glenohumeral joint space is maintained. Osteophyte formation involving medial inferior humeral head. Acromioclavicular joint space is maintained. Possible os acromion. IMPRESSION IMPRESSION: Mild glenohumeral osteoarthrosis. R D Manager: JENNIFER Transcribe Date/Time: Apr 22 2021 2:06P Dictated by : JOYCE HAGEN MD This examination was interpreted and the report reviewed and electronically signed by: JOYCE HAGEN MD on Apr 22 2021 2:07PM EST [facility] Radiology Study observation (narrative) [facility] XR Shoulder - right 3 ViewsO rdered By: Ccf Provider on 04-22-2021 [facility] Vital Signs Date Time Vital Sign Value Performing Clinician Gisell benavides 05-31-2024 12:19-0500 Diastolic blood pressure 80 mm[Hg] Shin Arias DO Work Phone: [facility] 05-31-2024 12:19-0500 Systolic blood pressure 120 mm[Hg] Shin Arias DO Work Phone: [facility] 05-31-2024 09:40-0500 Body mass index (BMI) [Ratio] 21.5 kg/m2 Shin Arias DO Work Phone: [facility] 05-31-2024 09:40-0500 Body temperature 98.29 [degF] Shin Arias DO Work Phone: [facility] 05-31-2024 09:40-0500 Body weight 55.4 kg Shin Arias DO Work Phone: [facility] 05-31-2024 09:40-0500 Heart rate 76 /min Shin Arias DO Work Phone: [facility] 05-31-2024 09:40-0500 Respiratory rate 16 /min Shin Arias DO Work Phone: [facility] 02-20-2024 10:42-0400 Body mass index (BMI) [Ratio] 21.23 kg/m2 Shin Arias DO Work Phone: [facility] 02-20-2024 10:42-0400 Body weight 54.7 kg Shin Arias DO Work Phone: [facility] 02-20-2024 10:42-0400 Diastolic blood pressure 74 mm[Hg] Shin Arias DO Work Phone: [facility] 02-20-2024 10:42-0400 Heart rate 60 /min Shin Arias DO Work Phone: [facility] 02-20-2024 10:42-0400 Respiratory rate 16 /min Shin Arias DO Work Phone: [facility] 02-20-2024 10:42-0400 SaO2% (BldA) [Mass fraction] 99 % Shin Arias DO Work Phone: [facility] 02-20-2024 10:42-0400 Systolic blood pressure 122 mm[Hg] Shin Arias DO Work Phone: [facility] 10-21-2023 10:41-0400 Body mass index (BMI) [Ratio] 21.47 kg/m2 Shin Arias DO Work Phone: [facility] 10-21-2023 10:41-0400 Body temperature 97.3 [degF] Shin Arias DO Work Phone: [facility] 10-21-2023 10:41-0400 Body weight 55.34 kg Shin Arias DO Work Phone: [facility] 10-21-2023 10:41-0400 Diastolic blood pressure 68 mm[Hg] Shin Arias DO Work Phone: [facility] 10-21-2023 10:41-0400 Heart rate 76 /min Shin Arias DO Work Phone: [facility] 10-21-2023 10:41-0400 Respiratory rate 16 /min Shin Arias DO Work Phone: [facility] 10-21-2023 10:41-0400 Systolic blood pressure 120 mm[Hg] Shin Arias DO Work Phone: [facility] 07-14-2023 15:50-0500 Body weight 55.34 kg Shin Arias DO Work Phone: [facility] 07-14-2023 15:50-0500 Diastolic blood pressure 84 mm[Hg] Shin Arias DO Work Phone: [facility] 07-14-2023 15:50-0500 Heart rate 63 /min Shin Arias DO Work Phone: [facility] 07-14-2023 15:50-0500 Respiratory rate 16 /min Shin Arias DO Work Phone: [facility] 07-14-2023 15:50-0500 SaO2% (BldA) [Mass fraction] 96 % Shin Arias DO Work Phone: [facility] 07-14-2023 15:50-0500 Systolic blood pressure 130 mm[Hg] Shin Arias DO Work Phone: [facility] 01-25-2023 15:35-0400 Body temperature 98.8 [degF] Chris Crawford MD Work Phone: [facility] 01-25-2023 15:35-0400 Body weight 56.25 kg Chris Crawford MD Work Phone: [facility] 01-25-2023 15:35-0400 Diastolic blood pressure 80 mm[Hg] Chris Crawford MD Work Phone: [facility] 01-25-2023 15:35-0400 Heart rate 58 /min Chris Crawford MD Work Phone: [facility] 01-25-2023 15:35-0400 Respiratory rate 16 /min Chris Crawford MD Work Phone: [facility] 01-25-2023 15:35-0400 SaO2% (BldA) [Mass fraction] 98 % Chris Crawford MD Work Phone: [facility] 01-25-2023 15:35-0400 Systolic blood pressure 120 mm[Hg] Chris Crawford MD Work Phone: [facility] 12-26-2022 07:59-0400 Body weight 55.79 kg NA Leyva PA-C Work Phone: [facility] 12-26-2022 07:59-0400 Diastolic blood pressure 60 mm[Hg] NA Leyva PA-C Work Phone: [facility] 12-26-2022 07:59-0400 Heart rate 67 /min NA Leyva PA-C Work Phone: [facility] 12-26-2022 07:59-0400 Respiratory rate 16 /min NA Leyva PA-C Work Phone: [facility] 12-26-2022 07:59-0400 SaO2% (BldA) [Mass fraction] 97 % NA Leyva PA-C Work Phone: [facility] 12-26-2022 07:59-0400 Systolic blood pressure 110 mm[Hg] NA Leyva PA-C Work Phone: [facility] 11-25-2022 13:59-0400 Body weight 57.61 kg NA Leyva PA-C Work Phone: [facility] 11-25-2022 13:59-0400 Diastolic blood pressure 68 mm[Hg] NA Leyva PA-C Work Phone: [facility] 11-25-2022 13:59-0400 Heart rate 87 /min NA Leyva PA-C Work Phone: [facility] 11-25-2022 13:59-0400 Respiratory rate 16 /min NA Leyva PA-C Work Phone: [facility] 11-25-2022 13:59-0400 SaO2% (BldA) [Mass fraction] 100 % NA Leyva PA-C Work Phone: [facility] 11-25-2022 13:59-0400 Systolic blood pressure 116 mm[Hg] NA Leyva PA-C Work Phone: [facility] 10-19-2022 08:29-0400 Body temperature 98.2 [degF] Shin Arias DO Work Phone: [facility] 10-19-2022 08:29-0400 Body weight 58.51 kg Shin Arias DO Work Phone: [facility] 10-19-2022 08:29-0400 Diastolic blood pressure 74 mm[Hg] Shin Arias DO Work Phone: [facility] 10-19-2022 08:29-0400 Heart rate 64 /min Shin Arias DO Work Phone: [facility] 10-19-2022 08:29-0400 Respiratory rate 16 /min Shin Arias DO Work Phone: [facility] 10-19-2022 08:29-0400 Systolic blood pressure 130 mm[Hg] Shin Arias DO Work Phone: [facility] 08-10-2022 11:05-0400 Body temperature 98.4 [degF] Shin Arias DO Work Phone: [facility] 08-10-2022 11:05-0400 Body weight 58.06 kg Shin Arias DO Work Phone: [facility] 08-10-2022 11:05-0400 Diastolic blood pressure 80 mm[Hg] Shin Arias DO Work Phone: [facility] 08-10-2022 11:05-0400 Heart rate 88 /min Shin Arias DO Work Phone: [facility] 08-10-2022 11:05-0400 Respiratory rate 16 /min Shin Arias DO Work Phone: [facility] 08-10-2022 11:05-0400 Systolic blood pressure 120 mm[Hg] Shin Arias DO Work Phone: [facility] 07-20-2022 09:10-0500 Body height 160.5 cm Pulm Wstr Work Phone: [facility] 07-20-2022 09:10-0500 Body weight 58.06 kg Pulm Wstr Work Phone: [facility] 07-20-2022 09:10-0500 Heart rate 70 /min Pulm Wstr Work Phone: [facility] 07-20-2022 09:10-0500 Respiratory rate 14 /min Pulm Wstr Work Phone: [facility] 07-20-2022 09:10-0500 SaO2% (BldA) [Mass fraction] 99 % Pulm Wstr Work Phone: [facility] 07-19-2022 08:54-0500 Body temperature 98.49 [degF] Shin Arias DO Work Phone: [facility] 07-19-2022 08:54-0500 Body weight 59.88 kg Shin Arias DO Work Phone: [facility] 07-19-2022 08:54-0500 Diastolic blood pressure 82 mm[Hg] Shin Arias DO Work Phone: [facility] 07-19-2022 08:54-0500 Heart rate 72 /min Shin Arias DO Work Phone: [facility] 07-19-2022 08:54-0500 Respiratory rate 16 /min Shin Arias DO Work Phone: [facility] 07-19-2022 08:54-0500 Systolic blood pressure 138 mm[Hg] Shin Arias DO Work Phone: [facility] 06-06-2022 10:10-0500 Body weight 59.33 kg Jossy Gustafson APRN.CNP Work Phone: [facility] 06-06-2022 10:10-0500 Diastolic blood pressure 60 mm[Hg] Jossy Gustafson 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 SPECIALIST Work Phone: [facility] 06-06-2022 10:10-0500 Heart rate 62 /min Jossy Gustafson 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 SPECIALIST Work Phone: [facility] 06-06-2022 10:10-0500 Respiratory rate 14 /min Jossy Gustafson 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 SPECIALIST Work Phone: [facility] 06-06-2022 10:10-0500 Systolic blood pressure 120 mm[Hg] Jossy Gustafson 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 SPECIALIST Work Phone: [facility] 05-19-2022 13:35-0500 Body temperature 98.91 [degF] NA Leyva PA-C Work Phone: [facility] 05-19-2022 13:35-0500 Body weight 59.42 kg NA Leyva PA-C Work Phone: [facility] 05-19-2022 13:35-0500 Diastolic blood pressure 70 mm[Hg] NA Leyva PA-C Work Phone: [facility] 05-19-2022 13:35-0500 Heart rate 70 /min NA Leyva PA-C Work Phone: [facility] 05-19-2022 13:35-0500 Respiratory rate 14 /min NA Leyva PA-C Work Phone: [facility] 05-19-2022 13:35-0500 SaO2% (BldA) [Mass fraction] 99 % NA Leyva PA-C Work Phone: [facility] 05-19-2022 13:35-0500 Systolic blood pressure 128 mm[Hg] NA Leyva PA-C Work Phone: [facility] 05-10-2022 16:40-0500 Body weight 60.78 kg NA Leyva PA-C Work Phone: [facility] 05-10-2022 16:40-0500 Diastolic blood pressure 58 mm[Hg] NA Leyva PA-C Work Phone: [facility] 05-10-2022 16:40-0500 Heart rate 98 /min NA Leyva PA-C Work Phone: [facility] 05-10-2022 16:40-0500 Respiratory rate 16 /min NA Leyva PA-C Work Phone: [facility] 05-10-2022 16:40-0500 SaO2% (BldA) [Mass fraction] 97 % NA Leyva PA-C Work Phone: [facility] 05-10-2022 16:40-0500 Systolic blood pressure 118 mm[Hg] NA Leyva PA-C Work Phone: [facility] 04-19-2022 09:47-0500 Body temperature 97.81 [degF] Shin Arias DO Work Phone: [facility] 04-19-2022 09:47-0500 Body weight 61.24 kg Shin Arias DO Work Phone: [facility] 04-19-2022 09:47-0500 Diastolic blood pressure 80 mm[Hg] Shin Arias DO Work Phone: [facility] 04-19-2022 09:47-0500 Heart rate 64 /min Shin Arias DO Work Phone: [facility] 04-19-2022 09:47-0500 Respiratory rate 16 /min Shin Arias DO Work Phone: [facility] 04-19-2022 09:47-0500 Systolic blood pressure 138 mm[Hg] Shin Arias DO Work Phone: [facility] 01-21-2022 12:03-0400 Body height 158.8 cm Shin Arias DO Work Phone: [facility] 01-21-2022 12:03-0400 Body temperature 98.2 [degF] Shin Arias DO Work Phone: [facility] 01-21-2022 12:03-0400 Body weight 61.24 kg Shin Arias DO Work Phone: [facility] 01-21-2022 12:03-0400 Diastolic blood pressure 70 mm[Hg] Shin Arias DO Work Phone: [facility] 01-21-2022 12:03-0400 Heart rate 76 /min Shin Arias DO Work Phone: [facility] 01-21-2022 12:03-0400 Respiratory rate 16 /min Shin Arias DO Work Phone: [facility] 01-21-2022 12:03-0400 Systolic blood pressure 120 mm[Hg] Shin Arias DO Work Phone: [facility] 10-22-2021 16:03-0400 Body temperature 98.91 [degF] Shin Arias DO Work Phone: [facility] 10-22-2021 16:03-0400 Body weight 60.78 kg Shin Arias DO Work Phone: [facility] 10-22-2021 16:03-0400 Diastolic blood pressure 60 mm[Hg] Shin Arias DO Work Phone: [facility] 10-22-2021 16:03-0400 Heart rate 64 /min Shin Arias DO Work Phone: [facility] 10-22-2021 16:03-0400 Respiratory rate 16 /min Shin Arias DO Work Phone: [facility] 10-22-2021 16:03-0400 Systolic blood pressure 120 mm[Hg] Shin Arias DO Work Phone: [facility] Encounters Encounter Date Encounter Type Care Provider Facility Start: 07-11-2024 ambulatory Shin Dillon y:[facility] Start: 05-31-2024 End: 05-31-2024 Patient encounter procedure Shin Linda Arias DO Work Phone: [facility] [place] Comment on above: CARPENTER (dyspnea on exer tion) (Primary Dx); Moderate tricuspid regurgitation by prior echocardiography; Anxiety with depression; Fatigue, unspecified type; Hypothyroidism, unspecified type; HERNAN (obstructive sleep apnea); Hx of ischemic vertebrobasilar artery cerebellar stroke; Vitamin B12 deficiency; Dry eye syndrome of both eyes; Hyperglycemia; Dyslipidemia; Vitamin D deficiency Start: 05-31-2024 End: 05-31-2024 ambulatory SHIN ARIAS Facility:[facility] Start: 05-21-2024 End: 05-21-2024 Refill Shin Galvanon DO Work Phone: [facility] [place] Comment on above: Refill Request Start: 04-17-2024 End: 04-22-2024 ambulatory Shin Galvanon DO Work Phone: [facility] [place] Start: 04-16-2024 End: 04-16-2024 ambulatory Shin Arias [place] Start: 04-15-2024 End: 04-15-2024 Refill Shin Galvanon DO Work Phone: [facility] [place] Comment on above: Refill Request Start: 04-13-2024 End: 04-15-2024 Refill Shin Galvanon DO Work Phone: [facility] [place] Comment on above: Refill Request (ENRIQUETA ) Start: 03-15-2024 End: 03-15-2024 Refill Shin Galvanon DO Work Phone: [facility] [place] Comment on above: Refill Request Start: 02-23-2024 End: 02-23-2024 Telephone encounter Shin Arias DO Work Phone: [facility] Comment on above: Medication Request Start: 02-20-2024 End: 02-20-2024 Telephone encounter Shin Galvanon DO Work Phone: [facility] [place] Comment on above: F/U on Bone Density Results Start: 02-20-2024 End: 02-20-2024 Patient encounter procedure Shin Martinezrison DO Work Phone: [facility] [place] Comment on above: CARPENTER (dyspnea on exer tion) (Primary Dx); Hypothyroidism, unspecified type; Palpitations; Moderate tricuspid regurgitation by prior echocardiography; Fatigue, unspecified type Start: 02-20-2024 End: 02-20-2024 ambulatory SHIN MARTINEZRISON Facility:[facility] Start: 01-30-2024 End: 01-30-2024 Telephone encounter Shin Martinezrison DO Work Phone: [facility] [place] Start: 01-30-2024 End: 01-30-2024 ambulatory SHIN L ARIAS Facility:[facility] Start: 01-26-2024 End: 01-26-2024 Telephone encounter Shin Martinezrison DO Work Phone: [facility] [place] Comment on above: Patient Question Start: 01-01-2024 End: 01-02-2024 Refill Shin Martinezrison DO Work Phone: [facility] Comment on above: Refill Request Start: 11-07-2023 End: 11-07-2023 ambulatory [facility] Facility:[facility] Start: 10-25-2023 Telephone encounter Shin Mckeon Cecile norbertominesh DO Work Phone: [facility] [place] Comment on above: Orders Start: 10-23-2023 Refill Shin Preston son DO Work Phone: [facility] Comment on above: Refill Request Start: 10-21-2023 End: 10-21-2023 Patient encounter procedure Shin Martinezrison DO Work Phone: [facility] Comment on above: HERNAN (obstructive sle ep apnea) (Primary Dx); Hypothyroidism, unspecified type; Gait disorder; Anxiety with depression; Mood disorder (HCC); S/P foot surgery, right; Hallux valgus, bilateral Start: 10-21-2023 End: 10-21-2023 ambulatory SHIN MARTINEZRISON Facility:[facility] Start: 10-20-2023 Telephone encounter Shin Mckeon Cecile arrison DO Work Phone: [facility] Comment on above: Fax over OV notes an d Updated Orders Start: 10-18-2023 End: 10-18-2023 ambulatory [facility] Facility:[facility] Start: 10-03-2023 End: 02-06-2024 Telephone encounter Shin Martinezrison DO Work Phone: [facility] [place] Comment on above: handicap placard Start: 07-15-2023 Telephone encounter Shin steiner DO Work Phone: [facility] Start: 07-14-2023 End: 07-14-2023 ambulatory SHIN ARIAS Facility:[facility] Start: 07-14-2023 End: 07-14-2023 Patient encounter procedure Shin Arias DO Work Phone: [facility] [place] Comment on above: Hypothyroidism, unsp ecified type (Primary Dx); Concentration deficit; Situational insomnia; Anxiety with depression; Mood disorder (HCC); Valgus deformity of both great toes; Moderate tricuspid regurgitation by prior echocardiogram Start: 07-14-2023 End: 07-14-2023 ambulatory SHIN ARIAS Facility:[facility] Start: 07-06-2023 Telephone encounter Shin steiner DO Work Phone: [facility] [place] Start: 06-23-2023 Refill Shin Preston son DO Work Phone: [facility] Comment on above: Refill Request Start: 05-17-2023 ambulatory Shin ortiz DO Work Phone: [facility] [place] Start: 05-04-2023 ambulatory Pcp (Historical) [facility] Start: 04-11-2023 Refill Shin ortiz DO Work Phone: [facility] [place] Comment on above: Refill Request Start: 02-16-2023 Refill Shin ortiz DO Work Phone: [facility] [place] Comment on above: Refill Request Start: 01-26-2023 Telephone encounter Lida Garcia APRN.CNP Work Phone: [facility] Comment on above: Results Start: 01-25-2023 End: 01-25-2023 Patient encounter procedure Chris Crawford MD Work Phone: [facility] Comment on above: Sore throat (Primary Dx); Influenza-like illness Start: 12-26-2022 End: 12-26-2022 Patient encounter procedure Alivia Leyva HUSSAIN Work Phone: [facility] [place] Comment on above: Situational insomnia ; Anxiety with depression Start: 12-24-2022 Refill Shin ortiz DO Work Phone: [facility] Comment on above: Refill Request Start: 11-25-2022 End: 11-25-2022 Patient encounter procedure Alivia Leyva HUSSAIN Work Phone: [facility] [place] Comment on above: Adjustment insomnia (Primary Dx); Anxiety with depression; Hx of ischemic vertebrobasilar artery cerebellar stroke Start: 10-19-2022 End: 10-19-2022 Patient encounter procedure Shin Arias DO Work Phone: [facility] [place] Comment on above: Elevated ferritin (P rimary Dx); Rash and nonspecific skin eruption; Elevated alkaline phosphatase level; Dermatitis contact; Hypothyroidism, unspecified type; Dyslipidemia; Mood disorder (HCC); Fatigue, unspecified type; Hyperglycemia Start: 09-30-2022 Refill Shin ortiz DO Work Phone: [facility] Comment on above: Refill Request Start: 08-10-2022 End: 08-10-2022 Patient encounter procedure Shin Arias DO Work Phone: [facility] [place] Comment on above: Dermatitis contact ( Primary Dx); Hypothyroidism, unspecified type Start: 08-09-2022 Telephone encounter Shin Mckeon Cecile jatin DO Work Phone: [facility] Comment on above: Appointment Start: 08-03-2022 Telephone encounter Shin Mckeon Cecile jatin DO Work Phone: [facility] [place] Comment on above: Results Medication Problem Start: 07-22-2022 Telephone encounter Shin Linda Huber jatin DO Work Phone: [facility] [place] Comment on above: Results Start: 07-20-2022 End: 07-20-2022 ambulatory [facility] Work Phone: [facility] Comment on above: Spirometry Start: 07-20-2022 End: 07-20-2022 Patient encounter procedure [facility] Work Phone: [place] [facility] Start: 07-19-2022 Telephone encounter Shin Linda steiner DO Work [...] 06-21-2022 Refill Shin ortiz DO Work Phone: [facility] Comment on above: Refill Request Start: 06-17-2022 Refill Shin ortiz DO Work Phone: [facility] [place] Comment on above: Refill Request Start: 06-07-2022 Telephone encounter Jossy Gaston angel 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 SPECIALIST Work Phone: [facility] Comment on above: Results Start: 06-06-2022 End: 06-06-2022 Subsequent hospital visit by physician Ely [facility] Work Phone: Radiology Comment on above: Right ankle swelling [M25.471] Start: 06-06-2022 End: 06-06-2022 Patient encounter procedure Jossy Gustafson APRN.TRADE SPECIALIST Work Phone: [facility] Comment on above: Right ankle swelling (Primary Dx); Encounter for screening for osteoporosis; Encounter for screening mammogram for malignant neoplasm of breast Start: 05-19-2022 End: 05-19-2022 Patient encounter procedure Alivia Leyva PA-C Work Phone: [facility] Comment on above: Flu-like symptoms (P rimary Dx); Elevated alkaline phosphatase level Start: 05-17-2022 Refill [facility]iz DO [facility] Comment on above: Refill Request Start: 05-11-2022 Telephone encounter Shin steiner DO Work Phone: [facility] Comment on above: requesting orders fo r stress test Start: 05-10-2022 End: 05-10-2022 Refill Shin Arias DO Work Phone: [facility] Comment on above: Refill Request Vasovagal symptom [...] [facility] Comment on above: Vitamin B12 deficien [...] [facility] Comment on above: Age-related cataract of both eyes, unspecified age-related cataract type (Primary Dx); Double vision; Vitamin B12 deficiency; Vitamin D deficiency; Hypothyroidism, unspecified type; Dyslipidemia; Hyperglycemia; Anxiety with depression Start: 01-19-2022 Refill Shin ortiz DO Work Phone: [facility] Comment on above: Refill Request Start: 12-31-2021 Refill Jossy monae APRN.TRADE SPECIALIST Work Phone: [facility] Comment on above: Refill Request Start: 11-25-2021 Refill Shin ortiz DO Work Phone: [facility] Comment on above: Refill Request Start: 11-10-2021 ambulatory Shin ortiz DO Work Phone: [facility] Start: 10-22-2021 End: 10-22-2021 Patient encounter procedure Shin Arias DO Work Phone: [facility] Comment on above: Anxiety with depress ion (Primary Dx); Mood disorder (HCC); Concentration deficit; Hypothyroidism, unspecified type; Vitamin B12 deficiency; Vitamin D deficiency; Fatigue, unspecified type; Dyslipidemia Start: 10-08-2021 Refill Shin ortiz DO Work Phone: [facility] Comment on above: Refill Request Start: 09-06-2021 Refill Shin ortiz DO Work Phone: [facility] Comment on above: Refill Request Start: 08-09-2021 Refill Jossy monae APRN.TRADE SPECIALIST Work Phone: [facility] Start: 07-29-2021 ambulatory SAID A ATWAY Facility:[facility] Start: 07-29-2021 End: 07-29-2021 Office outpatient new 30 minutes Said A Atway DPM Work Phone: [facility] Comment on above: Bilateral foot pain (Primary Dx) Start: 07-22-2021 ambulatory SHIN Linda ARIAS Facil ity:[facility] Start: 06-28-2021 Telephone encounter Shin Linda Cecile thorntonminesh DO Work Phone: [facility] Comment on above: Medication Problem Start: 04-22-2021 End: 04-22-2021 Subsequent hospital visit by physician Ely [facility] [place] Work Phone: Radiology Comment on above: Acute pain of right shoulder [M25.511] Start: 07-25-2018 Patient encounter status Aleah Chahal APRN.TRADE SPECIALIST Work Phone: [facility] Work Phone: Start: 08-17-2017 Ambulatory SHIN SCHWARTZ Facil ity:[facility] Procedures Date Procedure Procedure Detail Performing Clinician Start: 05-31-2024 Ecg routine ecg w/le ast 12 lds i&r only Shin Arias DO Work Phone: Start: 01-25-2023 COVID & INFLUENZA A/ B NAAT, ROUTINE Chris Crawford MD Work Phone: Start: 01-25-2023 STREP A MOLECULAR (POC) Latanya Seaman PAKristenC Work Phone: Start: 10-14-2022 Lipid 1996 panel - S zen or Plasma Chris Crawford MD Work Phone: Start: 07-20-2022 Brncdilat rspse spmt ry pre&post-brncdilat admn Shin Arias DO Work Phone: Start: 06-06-2022 Radex ankle complete minimum 3 views Jossy Sj 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 SPECIALIST Work Phone: Start: 05-19-2022 COVID WITH FLUA+B, ROUTINE M Thien Leyva PA-C Work Phone: Start: 04-22-2021 Radex shoulder compl ete minimum 2 views Lázaro Saunders MD Work Phone: Start: 11-20-2018 Mammography Jossysilvia murray 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 SPECIALIST Work Phone: Start: 10-01-2018 Lipid 1996 panel - S zen or Plasma Said Atway DPM Work Phone: Plan of Treatment Date Care Activity Detail Author Start: 09-10-2030 RSV Vaccine (1 - 1-dose 75+ series) RSV Vaccine (1 - 1-dose 75+ series) [facility] Start: 10-22-2029 Urine microalbumin profile DTaP,Tdap,Td Vaccine (3 - Td or Tdap) [facility] Start: 10-15-2027 Lipid 1996 panel - Serum or Plasma Lipid Screening [facility] Start: 10-15-2027 Lipid panel Lipid Screening [facility] Start: 10-15-2027 LIPID SCREEN LIPID SCREEN [facility] Start: 07-21-2027 LIPID SCREEN LIPID SCREEN [facility] Start: 04-19-2027 LIPID SCREEN LIPID SCREEN [facility] Start: 01-29-2027 Diabetes Screening Diabetes Screening [facility] Start: 01-28-2027 LIPID SCREEN LIPID SCREEN [facility] Start: 10-26-2026 LIPID SCREEN LIPID SCREEN [facility] Start: 06-30-2026 LIPID SCREEN LIPID SCREEN [facility] Start: 10-14-2025 DIABETES SCREEN DIABETES SCREEN [facility] Start: 10-14-2025 Diabetes Screening Diabetes Screening [facility] Start: 07-20-2025 DIABETES SCREEN DIABETES SCREEN [facility] Start: 05-31-2025 Annual PCP Team Chronic Disease Visit Annual PCP Team Chronic Disease Visit [facility] Start: 05-31-2025 Covid-19 Vaccine () Covid-19 Vaccine () [facility] Comment on above: Postponed from 01/14/2024 (Declined at t his time) Start: 04-19-2025 DIABETES SCREEN DIABETES SCREEN [facility] Start: 02-19-2025 Annual PCP Team Chronic Disease Visit Annual PCP Team Chronic Disease Visit [facility] Start: 01-28-2025 DIABETES SCREEN DIABETES SCREEN [facility] Start: 11-11-2024 Influenza vaccination Influenza Vaccine (#1) [facility] Comment on above: Postponed from 01/14/2024 (Declined at t his time) Start: 10-26-2024 DIABETES SCREEN DIABETES SCREEN [facility] Start: 10-20-2024 Annual PCP Team Chronic Disease Visit Annual PCP Team Chronic Disease Visit [facility] Start: 09-04-2024 End: 09-04-2024 Patient encounter procedure 09/04/2024 3:20 PM EDT Office Visit Family [facility] [address] [place] [address] Shin Arias DO [address] [facility] [place] [address] 3 month follow up Family [facility] [place] Comment on above: 3 month follow up Start: 08-29-2024 End: 11-28-2024 25-hydroxyvitamin D3 [Mass/volume] in Serum or Plasma VITAMIN D 25 HYDROXY Lab Routine Vitamin D deficiency Expected: 08/29/2024, Expires: 11/28/2024 [facility] Comment on above: Expected: 08/29/2024, Expires: Start: 08-29-2024 End: 11-28-2024 CBC panel - Blood by Automated count COMPLETE BLOOD COUNT Lab Routine Vitamin B12 deficiency Expected: 08/29/2024, Expires: 11/28/2024 [facility] Comment on above: Expected: 08/29/2024, Expires: Start: 08-29-2024 End: 11-28-2024 Cobalamin (Vitamin B12) [Mass/volume] in Serum or Plasma VITAMIN B12 Lab Routine Vitamin B12 deficiency Expected: 08/29/2024, Expires: 11/28/2024 [facility] Comment on above: Expected: 08/29/2024, Expires: Start: 08-29-2024 End: 11-28-2024 Comprehensive metabolic 2000 panel - Serum or Plasma COMPREHENSIVE METABOLIC PANEL Lab Routine Vitamin B12 deficiency Expected: 08/29/2024, Expires: 11/28/2024 [facility] Comment on above: Expected: 08/29/2024, Expires: Start: 08-29-2024 End: 11-28-2024 Hemoglobin A1c in Blood HEMOGLOBIN A1C Lab Routine Hyperglycemia Expected: 08/29/2024, Expires: 11/28/2024 [facility] Comment on above: Expected: 08/29/2024, Expires: Start: 08-29-2024 End: 11-28-2024 Lipid 1996 panel - Serum or Plasma LIPID PANEL BASIC Lab Routine Dyslipidemia Expected: 08/29/2024, Expires: 11/28/2024 [facility] Comment on above: Expected: 08/29/2024, Expires: Start: 08-29-2024 End: 11-28-2024 Thyrotropin [Units/volume] in Serum or Plasma THYROID STIMULATING HORMONE Lab Routine Hypothyroidism, unspecified type Expected: 08/29/2024, Expires: 11/28/2024 [facility] Comment on above: Expected: 08/29/2024, Expires: Start: 08-29-2024 End: 11-28-2024 Thyroxine (T4) free [Mass/volume] in Serum or Plasma T4 FREE/FREE THYROXINE Lab Routine Hypothyroidism, unspecified type Expected: 08/29/2024, Expires: 11/28/2024 [facility] Comment on above: Expected: 08/29/2024, Expires: Start: 07-20-2024 End: 02-19-2025 Echocardiography ECHO Cardiology Routine CARPENTER (dyspnea on exertion) Palpitations Moderate tricuspid regurgitation by prior echocardiography Expected: 07/20/2024, Expires: 02/19/2025 [facility] Work Phone: Comment on above: Expected: 07/20/2024, Expires: Start: 07-13-2024 Annual PCP Team Chronic Disease Visit Annual PCP Team Chronic Disease Visit [facility] Start: 07-02-2024 End: 07-02-2024 Patient encounter procedure 07/02/2024 1:50 PM EST Office Visit Cardiology [address] [place] [address] CARPENTER (dyspnea on exertion) [R06.09]; Moderate tricuspid regurgitation by prior echocardiography [I07.1] Cardiology Comment on above: CARPENTER (dyspnea on exertion) [R06.09]; Mode rate tricuspid regurgitation by prior echocardiography [I07.1] Start: 07-01-2024 End: 05-31-2025 Echocardiography ECHO Cardiology Routine CARPENTER (dyspnea on exertion) Moderate tricuspid regurgitation by prior echocardiography Expected: 07/01/2024, Expires: 05/31/2025 [facility] Work Phone: Comment on above: Expected: 07/01/2024, Expires: Start: 06-30-2024 DIABETES SCREEN DIABETES SCREEN [facility] Start: 05-31-2024 End: 05-31-2024 Patient encounter procedure 05/31/2024 9:40 AM EST Office Visit [facility] [place] [address] [facility], [place] [id number] Shin Arias DO [address] [place] [address] 3- 4 month follow up Family [facility] M [place] Comment on above: 3- 4 month follow up Start: 05-03-2024 Annual PCP Team Chronic Disease Visit Annual PCP Team Chronic Disease Visit [facility] Start: 05-03-2024 Covid-19 Vaccine (#1) Covid-19 Vaccine (#1) [facility] Comment on above: Postponed from 03/12/1956 (Declined at t his time) Start: 05-03-2024 Covid-19 Vaccine () Covid-19 Vaccine () [facility] Comment on above: Postponed from 01/13/2023 (Declined at t his time) Start: 02-20-2024 End: 02-20-2024 Patient encounter procedure 02/20/2024 10:40 AM EDT Office Visit [facility] [place] [address] [place], [place] [id number] Shin Arias DO [address] [place], [place] [id number] Follow Up [facility] [place] Comment on above: Follow Up Start: 01-30-2024 End: 04-30-2024 CBC panel - Blood by Automated count [facility] Work Phone: Comment on above: Expected: 01/30/2024, Expires: Start: 01-30-2024 End: 04-30-2024 Comprehensive metabolic 2000 panel - Serum or Plasma [facility] Comment on above: Expected: 01/30/2024, Expires: Start: 01-30-2024 End: 04-30-2024 Ferritin [Mass/volume] in Serum or Plasma [facility] Comment on above: Expected: 01/30/2024, Expires: 4 Start: 01-30-2024 End: 04-30-2024 Hemoglobin A1c in Blood [facility] Comment on above: Expected: 01/30/2024, Expires: Start: 01-30-2024 End: 04-30-2024 Iron and Iron binding capacity panel - Serum or Plasma [facility] Comment on above: Expected: 01/30/2024, Expires: Start: 01-26-2024 End: 04-26-2024 Thyrotropin [Units/volume] in Serum or Plasma THYROID STIMULATING HORMONE Lab Routine Hypothyroidism, unspecified type Expected: 01/26/2024, Expires: 04/26/2024 [facility] Work Phone: Comment on above: Expected: 01/26/2024, Expires: Start: 01-26-2024 End: 04-26-2024 Thyroxine (T4) free [Mass/volume] in Serum or Plasma T4 FREE/FREE THYROXINE Lab Routine Hypothyroidism, unspecified type Expected: 01/26/2024, Expires: 04/26/2024 [facility] Comment on above: Expected: 01/26/2024, Expires: Start: 01-26-2024 End: 04-26-2024 Triiodothyronine (T3) Free [Mass/volume] in Serum or Plasma T3, FREE Lab Routine Hypothyroidism, unspecified type Expected: 01/26/2024, Expires: 04/26/2024 [facility] Comment on above: Expected: 01/26/2024, Expires: Start: 01-14-2024 Covid-19 Vaccine ( season) Covid-19 Vaccine ( season) [facility] Start: 01-14-2024 Covid-19 Vaccine ( season) Covid-19 Vaccine ( season) [facility] Start: 01-14-2024 Influenza vaccination [facility] Start: 12-27-2023 ANNUAL PCP TEAM CHRONIC DISEASE VISIT ANNUAL PCP TEAM CHRONIC DISEASE VISIT [facility] Start: 11-29-2023 End: 11-29-2023 Patient encounter procedure 11/29/2023 12:40 PM EDT Office Visit [facility] [place] [address] [place] [id number] Shin Arias DO [address] [place] [address] Follow Up [facility] [place] Comment on above: Follow Up Start: 11-26-2023 ANNUAL PCP TEAM CHRONIC DISEASE VISIT ANNUAL PCP TEAM CHRONIC DISEASE VISIT [facility] Start: 11-12-2023 Influenza vaccination Influenza Vaccine (#1) [place] [facility] Comment on above: Postponed from 01/13/2023 (Declined at t his time) Start: 10-21-2023 End: 10-21-2023 Patient encounter procedure 10/21/2023 10:40 AM EDT Office Visit [facility] [place] [address] [place] [address] Shin Arias DO [address] [place], [place] [id number] discuss CPAP supplies, see phone note 10/20/23 [facility] [place] Comment on above: discuss CPAP supplies, see phone note 10/20/23 Start: 10-20-2023 ANNUAL PCP TEAM CHRONIC DISEASE VISIT ANNUAL PCP TEAM CHRONIC DISEASE VISIT [facility] Start: 10-02-2023 Fasting lipid profile LIPID SCREENING [facility] Start: 08-11-2023 ANNUAL PCP TEAM CHRONIC DISEASE VISIT ANNUAL PCP TEAM CHRONIC DISEASE VISIT [facility] Start: 07-29-2023 COLORECTAL CANCER SCREENING COLORECTAL CANCER SCREENING [facility] Start: 07-29-2023 FECAL OCCULT BLOOD FECAL OCCULT BLOOD [facility] Start: 07-29-2023 Screening for malignant neoplasm of colon [facility] Start: 07-20-2023 ANNUAL PCP TEAM CHRONIC DISEASE VISIT ANNUAL PCP TEAM CHRONIC DISEASE VISIT [facility] Start: 06-06-2023 ANNUAL PCP TEAM CHRONIC DISEASE VISIT ANNUAL PCP TEAM CHRONIC DISEASE VISIT [facility] Start: 06-06-2023 Pneumococcal Vaccine: 65+ (1 - PCV) Pneumococcal Vaccine: 65+ (1 - PCV) [facility] Comment on above: Postponed from 09/10/2020 (Declined at t his time) Start: 06-06-2023 Pneumococcal Vaccine: 65+ (1 of 1 - PCV) Pneumococcal Vaccine: 65+ (1 of 1 - PCV) [facility] Comment on above: Postponed from 09/10/2020 (Declined at t his time) Start: 06-06-2023 PNEUMOCOCCAL: 65+ (1 - PCV) PNEUMOCOCCAL: 65+ (1 - PCV) [facility] Comment on above: Postponed from 09/10/2020 (Declined at t his time) Start: 06-06-2023 Urine microalbumin profile [facility] Comment on above: Postponed from 08/03/2020 (Declined at t his time) Start: 05-19-2023 ANNUAL PCP TEAM CHRONIC DISEASE VISIT ANNUAL PCP TEAM CHRONIC DISEASE VISIT [facility] Start: 05-10-2023 ANNUAL PCP TEAM CHRONIC DISEASE VISIT ANNUAL PCP TEAM CHRONIC DISEASE VISIT [facility] Start: 04-19-2023 ANNUAL PCP TEAM CHRONIC DISEASE VISIT ANNUAL PCP TEAM CHRONIC DISEASE VISIT [facility] Start: 01-21-2023 ANNUAL PCP TEAM CHRONIC DISEASE VISIT ANNUAL PCP TEAM CHRONIC DISEASE VISIT [facility] Start: 01-21-2023 COVID-19 VACCINE (#1) COVID-19 VACCINE (#1) [facility] Comment on above: Postponed from 03/12/1956 (Declined at t his time) Start: 01-13-2023 Influenza vaccination [facility] Start: 11-11-2022 Influenza vaccination INFLUENZA (#1) [facility] Comment on above: Postponed from 01/13/2022 (Declined at t his time) Start: 10-22-2022 ANNUAL PCP TEAM CHRONIC DISEASE VISIT ANNUAL PCP TEAM CHRONIC DISEASE VISIT [facility] Start: 07-19-2022 End: 09-18-2022 25-hydroxyvitamin D3 [Mass/volume] in Serum or Plasma VITAMIN D 25 HYDROXY Lab Routine Hair thinning Fatigue, unspecified type Expected: 07/19/2022, Expires: 09/18/2022 [facility] Work Phone: Comment on above: Expected: 07/19/2022, Expires: 3 Start: 07-19-2022 End: 09-18-2022 Ascorbate [Mass/volume] in Serum or Plasma VITAMIN C Lab Routine Hair thinning Fatigue, unspecified type Expected: 07/19/2022, Expires: 09/18/2022 [facility] Work Phone: Comment on above: Expected: 07/19/2022, Expires: 3 Start: 07-19-2022 End: 09-18-2022 CBC W Auto Differential panel - Blood CBC + DIFF Lab Routine SOB (shortness of breath) Expected: 07/19/2022, Expires: 09/18/2022 [facility] Work Phone: Comment on above: Expected: 07/19/2022, Expires: 3 Start: 07-19-2022 End: 09-18-2022 Cobalamin (Vitamin B12) [Mass/volume] in Serum or Plasma VITAMIN B12 BLOOD Lab Routine Hair thinning Fatigue, unspecified type Expected: 07/19/2022, Expires: 09/18/2022 [facility] Work Phone: Comment on above: Expected: 07/19/2022, Expires: Start: 07-19-2022 End: 09-18-2022 Comprehensive metabolic 2000 panel - Serum or Plasma COMP METABOLIC PANEL Lab Routine SOB (shortness of breath) Expected: 07/19/2022, Expires: 09/18/2022 [facility] Work Phone: Comment on above: Expected: 07/19/2022, Expires: Start: 07-19-2022 End: 09-18-2022 Ferritin [Mass/volume] in Serum or Plasma FERRITIN BLD Lab Routine SOB (shortness of breath) Expected: 07/19/2022, Expires: 09/18/2022 [facility] Work Phone: Comment on above: Expected: 07/19/2022, Expires: 3 Start: 07-19-2022 End: 09-18-2022 Iron and Iron binding capacity panel - Serum or Plasma IRON + TIBC Lab Routine SOB (shortness of breath) Expected: 07/19/2022, Expires: 09/18/2022 [facility] Work Phone: Comment on above: Expected: 07/19/2022, Expires: 3 Start: 07-19-2022 End: 09-18-2022 Lipid 1996 panel - Serum or Plasma LIPID PANEL BASIC Lab Routine Dyslipidemia Expected: 07/19/2022, Expires: 09/18/2022 [facility] Work Phone: Comment on above: Expected: 07/19/2022, Expires: 3 Start: 07-19-2022 End: 09-18-2022 Magnesium [Mass/volume] in Serum or Plasma MAGNESIUM BLD Lab Routine Hair thinning Fatigue, unspecified type Expected: 07/19/2022, Expires: 09/18/2022 [facility] Work Phone: Comment on above: Expected: 07/19/2022, Expires: 3 Start: 07-19-2022 End: 09-18-2022 Thyrotropin [Units/volume] in Serum or Plasma TSH BLD Lab Routine Hypothyroidism, unspecified type Expected: 07/19/2022, Expires: 09/18/2022 [facility] Work Phone: Comment on above: Expected: 07/19/2022, Expires: Start: 07-19-2022 End: 09-18-2022 Thyroxine (T4) free [Mass/volume] in Serum or Plasma T4 FREE/FREE THYROX Lab Routine Hypothyroidism, unspecified type Expected: 07/19/2022, Expires: 09/18/2022 [facility] Work Phone: Comment on above: Expected: 07/19/2022, Expires: 3 Start: 07-19-2022 End: 09-18-2022 Triiodothyronine (T3) Free [Mass/volume] in Serum or Plasma T3 FREE BLD Lab Routine Hypothyroidism, unspecified type Expected: 07/19/2022, Expires: 09/18/2022 [facility] Work Phone: Comment on above: Expected: 07/19/2022, Expires: 3 Start: 06-23-2022 ANNUAL PCP TEAM CHRONIC DISEASE VISIT ANNUAL PCP TEAM CHRONIC DISEASE VISIT [facility] Start: 05-15-2022 ADVANCE DIRECTIVE DISCUSSION ADVANCE DIRECTIVE DISCUSSION [facility] Start: 04-19-2022 End: 06-19-2022 ALK PHOS ISOENZYM BL [facility] Work Phone: Comment on above: Expected: 04/19/2022, Expires: 3 Start: 04-19-2022 End: 06-19-2022 Comprehensive metabolic 2000 panel - Serum or Plasma [facility] Work Phone: Comment on above: Expected: 04/19/2022, Expires: 3 Start: 04-19-2022 End: 06-19-2022 Lipid 1996 panel - Serum or Plasma [facility] Work Phone: Comment on above: Expected: 04/19/2022, Expires: 3 Start: 04-19-2022 End: 06-19-2022 Thyrotropin [Units/volume] in Serum or Plasma [facility] Work Phone: Comment on above: Expected: 04/19/2022, Expires: 3 Start: 04-19-2022 End: 06-19-2022 Thyroxine (T4) free [Mass/volume] in Serum or Plasma [facility] Work Phone: Comment on above: Expected: 04/19/2022, Expires: 3 Start: 04-19-2022 End: 06-19-2022 Triiodothyronine (T3) Free [Mass/volume] in Serum or Plasma [facility] Work Phone: Comment on above: Expected: 04/19/2022, Expires: 3 Start: 01-21-2022 End: 03-23-2022 25-hydroxyvitamin D3 [Mass/volume] in Serum or Plasma VITAMIN D 25 HYDROXY Lab Routine Vitamin D deficiency Expected: 01/21/2022, Expires: 03/23/2022 [facility] Work Phone: Comment on above: Expected: 01/21/2022, Expires: 2 Start: 01-21-2022 End: 03-23-2022 CBC W Auto Differential panel - Blood CBC + DIFF Lab Routine Hypothyroidism, unspecified type Expected: 01/21/2022, Expires: 03/23/2022 [facility] Work Phone: Comment on above: Expected: 01/21/2022, Expires: 2 Start: 01-21-2022 End: 03-23-2022 Cobalamin (Vitamin B12) [Mass/volume] in Serum or Plasma VITAMIN B12 BLOOD Lab Routine Vitamin B12 deficiency Expected: 01/21/2022, Expires: 03/23/2022 [facility] Work Phone: Comment on above: Expected: 01/21/2022, Expires: 2 Start: 01-21-2022 End: 03-23-2022 Comprehensive metabolic 2000 panel - Serum or Plasma COMP METABOLIC PANEL Lab Routine Hypothyroidism, unspecified type Expected: 01/21/2022, Expires: 03/23/2022 [facility] Work Phone: Comment on above: Expected: 01/21/2022, Expires: 2 Start: 01-21-2022 End: 03-23-2022 Hemoglobin A1c in Blood HGB A1C Lab Routine Hyperglycemia Expected: 01/21/2022 (Approximate), Expires: 03/23/2022 [facility] Work Phone: Comment on above: Expected: 01/21/2022 (Approximate), Expi res: 03/23/2022 Start: 01-21-2022 End: 03-23-2022 Lipid 1996 panel - Serum or Plasma LIPID PANEL BASIC Lab Routine Dyslipidemia Expected: 01/21/2022, Expires: 03/23/2022 [facility] Work Phone: Comment on above: Expected: 01/21/2022, Expires: 2 Start: 01-21-2022 End: 03-23-2022 Magnesium [Mass/volume] in Serum or Plasma MAGNESIUM BLD Lab Routine Hypothyroidism, unspecified type Expected: 01/21/2022, Expires: 03/23/2022 [facility] Work Phone: Comment on above: Expected: 01/21/2022, Expires: 2 Start: 01-21-2022 End: 03-23-2022 THYROID PEROXIDASE ANTIBODY BLOOD THYROID PEROXIDASE ANTIBODY BLOOD Lab Routine Hypothyroidism, unspecified type Expected: 01/21/2022, Expires: 03/23/2022 [facility] Work Phone: Comment on above: Expected: 01/21/2022, Expires: 2 Start: 01-21-2022 End: 03-23-2022 Thyrotropin [Units/volume] in Serum or Plasma TSH BLD Lab Routine Hypothyroidism, unspecified type Expected: 01/21/2022, Expires: 03/23/2022 [facility] Work Phone: Comment on above: Expected: 01/21/2022, Expires: 2 Start: 01-21-2022 End: 03-23-2022 Thyroxine (T4) free [Mass/volume] in Serum or Plasma T4 FREE/FREE THYROX Lab Routine Hypothyroidism, unspecified type Expected: 01/21/2022, Expires: 03/23/2022 [facility] Work Phone: Comment on above: Expected: 01/21/2022, Expires: 2 Start: 01-21-2022 End: 03-23-2022 Triiodothyronine (T3) Free [Mass/volume] in Serum or Plasma T3 FREE BLD Lab Routine Hypothyroidism, unspecified type Expected: 01/21/2022, Expires: 03/23/2022 [facility] Work Phone: Comment on above: Expected: 01/21/2022, Expires: 2 Start: 01-13-2022 Influenza vaccination [facility] Start: 11-11-2021 Influenza vaccination INFLUENZA (#1) [facility] Comment on above: Postponed from 01/13/2021 (Declined at t his time) Start: 10-23-2021 End: 12-23-2021 25-hydroxyvitamin D3 [Mass/volume] in Serum or Plasma VITAMIN D 25 HYDROXY Lab Routine Vitamin D deficiency Fatigue, unspecified type Expected: 10/23/2021, Expires: 12/23/2021 [facility] Work Phone: Comment on above: Expected: 10/23/2021, Expires: 2 Start: 10-23-2021 End: 12-23-2021 CBC W Auto Differential panel - Blood CBC + DIFF Lab Routine Fatigue, unspecified type Expected: 10/23/2021, Expires: 12/23/2021 [facility] Work Phone: Comment on above: Expected: 10/23/2021, Expires: 2 Start: 10-23-2021 End: 12-23-2021 Cobalamin (Vitamin B12) [Mass/volume] in Serum or Plasma VITAMIN B12 BLOOD Lab Routine Vitamin B12 deficiency Fatigue, unspecified type Expected: 10/23/2021, Expires: 12/23/2021 [facility] Work Phone: Comment on above: Expected: 10/23/2021, Expires: 2 Start: 10-23-2021 End: 12-23-2021 Comprehensive metabolic 2000 panel - Serum or Plasma COMP METABOLIC PANEL Lab Routine Fatigue, unspecified type Expected: 10/23/2021, Expires: 12/23/2021 [facility] Work Phone: Comment on above: Expected: 10/23/2021, Expires: 2 Start: 10-23-2021 End: 12-23-2021 Lipid 1996 panel - Serum or Plasma LIPID PANEL BASIC Lab Routine Dyslipidemia Expected: 10/23/2021, Expires: 12/23/2021 [facility] Work Phone: Comment on above: Expected: 10/23/2021, Expires: 2 Start: 10-23-2021 End: 12-23-2021 Thyrotropin [Units/volume] in Serum or Plasma TSH BLD Lab Routine Hypothyroidism, unspecified type Fatigue, unspecified type Expected: 10/23/2021, Expires: 12/23/2021 [facility] Work Phone: Comment on above: Expected: 10/23/2021, Expires: 2 Start: 10-23-2021 End: 12-23-2021 Thyroxine (T4) free [Mass/volume] in Serum or Plasma T4 FREE/FREE THYROX Lab Routine Hypothyroidism, unspecified type Fatigue, unspecified type Expected: 10/23/2021, Expires: 12/23/2021 [facility] Work Phone: Comment on above: Expected: 10/23/2021, Expires: 2 Start: 10-23-2021 End: 12-23-2021 Triiodothyronine (T3) Free [Mass/volume] in Serum or Plasma T3 FREE BLD Lab Routine Hypothyroidism, unspecified type Fatigue, unspecified type Expected: 10/23/2021, Expires: 12/23/2021 [facility] Work Phone: Comment on above: Expected: 10/23/2021, Expires: Start: 05-15-2021 ADVANCE DIRECTIVE DISCUSSION ADVANCE DIRECTIVE DISCUSSION [facility] Start: 04-07-2021 COLORECTAL CANCER SCREENING COLORECTAL CANCER SCREENING [facility] Start: 04-07-2021 FECAL OCCULT BLOOD FECAL OCCULT BLOOD [facility] Start: 09-10-2020 BONE DENSITY BONE DENSITY [facility] Start: 09-10-2020 Bone Density Screening Bone Density Screening [facility] Start: 09-10-2020 Pneumococcal vaccination PNEUMOCOCCAL VACCINE SERIES (1 of 1 - PPSV23) [facility] Start: 09-10-2020 Pneumococcal Vaccine: 65+ (1 of 1 - PCV) Pneumococcal Vaccine: 65+ (1 of 1 - PCV) [facility] Start: 09-10-2020 PNEUMOCOCCAL: 65+ (1 - PCV) PNEUMOCOCCAL: 65+ (1 - PCV) [facility] Start: 09-10-2020 PNEUMOVAX AGE 65 AND OVER WITH 5YR LOOKBACK (#1) PNEUMOVAX AGE 65 AND OVER WITH 5YR LOOKBACK (#1) [facility] Start: 09-10-2020 Screening for osteoporosis Bone Density Screening [facility] Start: 08-03-2020 Urine microalbumin profile DTAP,TDAP,TD (2 - Td or Tdap) [facility] Start: 11-21-2019 Mammography [facility] Start: 11-21-2019 Screening for malignant neoplasm of breast Mammogram Screening [facility] Start: 10-02-2019 Thyroid stimulating hormone measurement TSH [facility] Start: 2015 RSV Vaccine (1 - 1-dose 60+ series) RSV Vaccine (1 - 1-dose 60+ series) [facility] Start: 09-10-2005 Pneumococcal Vaccine: 50+ (1 of 1 - PCV) Pneumococcal Vaccine: 50+ (1 of 1 - PCV) [facility] Start: 09-10-2005 SHINGRIX VACCINE (1 of 2) SHINGRIX VACCINE (1 of 2) [facility] Start: 09-10-2005 Zoster vaccine hzv live for subcutaneous use ZOSTER (SHINGLES) VACCINE (1 of 2) [facility] Start: 09-10-2000 COLOGUARD (FIT-DNA) COLOGUARD (FIT-DNA) [facility] Start: 09-10-2000 Colonoscopy [facility] Start: 09-10-[address] COLONOGRAPHY [facility] Start: 09-10-2000 Screening for malignant neoplasm of colon [facility] Start: 09-10-2000 SIGMOIDOSCOPY SIGMOIDOSCOPY [facility] Start: 1995 Screening mammography MAMMOGRAM SCREENING DISCUSSION [facility] Start: 09-10-1976 Screening for malignant neoplasm of cervix CERVICAL CANCER SCREENING DISCUSSION [facility] Start: 09-10-1974 Third diphtheria, tetanus and acellular pertussis (DTaP) vaccination TDAP (ADULT) [facility] Start: 09-10-1973 HIV SCREENING HIV SCREENING [facility] Start: 09-10-1973 Tetanus vaccination TETANUS [facility] Start: 09-10-1960 COVID-19 VACCINE (#1) COVID-19 VACCINE (#1) [facility] Start: 09-10-1960 COVID-19 VACCINE (1) COVID-19 VACCINE (1) [facility] Start: 03-12-1956 COVID-19 VACCINE (#1) COVID-19 VACCINE (#1) [facility] Start: 1955 Hepatitis C antibody, confirmatory test HEPATITIS C VIRUS SCREENING [facility] Start: 1955 Screening for osteoporosis DEXA SCAN DISCUSSION [facility] End: 05-17-2025 DBT Breast - bilateral screening MANDO SCREENING W [facility] Radiology Routine Encounter for screening mammogram for breast cancer 1 Occurrences starting 04/17/2024 until 05/17/2025 [facility] Work Phone: Comment on above: 1 Occurrences starting 04/17/2024 until 05/17/2025 End: 07-06-2023 DXA-AXIAL SKELETON DXA-AXIAL SKELETON Radiology Routine Encounter for screening for osteoporosis 1 Occurrences starting 06/06/2022 until 07/06/2023 [facility] Work Phone: Comment on above: 1 Occurrences starting 06/06/2022 until 07/06/2023 ECG COMPLETE ECG COMPLETE ECG Routine CARPENTER (dyspnea on exertion) Moderate tricuspid regurgitation by prior echocardiography 05/31/2024 10:48 AM EST [facility].gastroint estin al.lower [Presence] in Stool by Immunoassay FECAL OCCULT BLOOD TEST Lab Routine Screening for colon cancer Ordered: 07/19/2022 [facility] Work Phone: Comment on above: Ordered: 07/19/2022 End: 08-18-2023 LUNG VOLUMES LUNG VOLUMES PFT Routine SOB (shortness of breath) 1 Occurrences starting 07/19/2022 until 08/18/2023 [facility] Work Phone: Comment on above: 1 Occurrences starting 07/19/2022 until 08/18/2023 LUNG VOLUMES LUNG VOLUMES PFT Routine SOB (shortness of breath) 07/20/2022 8:42 AM EST [facility] Work Phone: End: 07-06-2023 MANDO SCREENING MANDO SCREENING Radiology Routine Encounter for screening mammogram for malignant neoplasm of breast 1 Occurrences starting 06/06/2022 until 07/06/2023 [facility] Work Phone: Comment on above: 1 Occurrences starting 06/06/2022 until 07/06/2023 End: 06-15-2024 MANDO SCREENING MANDO SCREENING Radiology Routine Encounter for screening mammogram for breast cancer 1 Occurrences starting 05/17/2023 until 06/15/2024 [facility] Work Phone: Comment on above: 1 Occurrences starting 05/17/2023 until 06/15/2024 End: 08-18-2023 Radiologic exam chest 2 views XR CHEST 2V FRONTAL/LAT Radiology Routine SOB (shortness of breath) 1 Occurrences starting 07/19/2022 until 08/18/2023 [facility] Work Phone: Comment on above: 1 Occurrences starting 07/19/2022 until 08/18/2023 End: 12-10-2022 Screening mammography bi 2-view breast inc cad MANDO SCREENING Radiology Routine Encounter for screening mammogram for breast cancer 1 Occurrences starting 11/10/2021 until 12/10/2022 [facility] Work Phone: Comment on above: 1 Occurrences starting 11/10/2021 until 12/10/2022 End: 08-18-2023 SPIROMETRY - BASELINE AND POST DILATOR SPIROMETRY - BASELINE AND POST DILATOR PFT Routine SOB (shortness of breath) 1 Occurrences starting 07/19/2022 until 08/18/2023 [facility] Work Phone: Comment on above: 1 Occurrences starting 07/19/2022 until 08/18/2023 SPIROMETRY - BASELIN E AND POST DILATOR SPIROMETRY - BASELINE AND POST DILATOR PFT Routine SOB (shortness of breath) 07/20/2022 8:42 AM EST [facility] Work Phone: End: 05-19-2023 STRESS ECHO TREADMILL STRESS ECHO TREADMILL Cardiology Routine Near syncope 1 Occurrences starting 05/19/2022 until 05/19/2023 [facility] Work Phone: Comment on above: 1 Occurrences starting 05/19/2022 until 05/19/2023 End: 06-02-2023 Us abdominal real time w/image limited US ABD RT UPPER QUADRANT Radiology Routine Elevated alkaline phosphatase level 1 Occurrences starting 05/03/2022 until 06/02/2023 [facility] Work Phone: Comment on above: 1 Occurrences starting 05/03/2022 until 06/02/2023 End: 07-06-2023 XR ANKLE GENERAL 3V AP/LAT/OBL RIGHT XR ANKLE GENERAL 3V AP/LAT/OBL RIGHT Radiology Routine Right ankle swelling 1 Occurrences starting 06/06/2022 until 07/06/2023 [facility] Work Phone: Comment on above: 1 Occurrences starting 06/06/2022 until 07/06/2023 XR ANKLE GENERAL 3V AP/LAT/OBL RIGHT XR ANKLE GENERAL 3V AP/LAT/OBL RIGHT Radiology Routine Right ankle swelling 06/06/2022 11:36 AM EST [facility] Work Phone: [facility] c [facility] Immunizations Immunization Date Immunization Notes Care Provider Kareem sanders 03-24-2020 influenza, seasonal, injectable 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 Phone: [facility] Work Phone: 03-24-2020 influenza virus vaccine, unspecified formulation Said Atway DPM Work Phone: [facility] 03-18-2020 influenza, seasonal, injectable [facility] Work Phone: 10-23-2019 tetanus toxoid, redu bianka diphtheria toxoid, and acellular pertussis vaccine, adsorbed [facility] Work Phone: 03-27-2019 influenza, seasonal, injectable [facility] Work Phone: 02-19-2019 influenza, seasonal, injectable 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 Phone: [facility] Work Phone: 03-05-2018 influenza, seasonal, injectable [facility] Work Phone: 02-14-2018 influenza, seasonal, injectable 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 Phone: [facility] Work Phone: 08-03-2010 tetanus toxoid, redu bianka diphtheria toxoid, and acellular pertussis vaccine, adsorbed 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 2017 Unknown [id number] 1955 Unknown [id number] 1955 Unknown [id number] 1955 Unknown [id number] 1955 Unknown [id number] Medicare MEDICARE PART A B [id number] Unknown [id number] Unknown [employer] OTHER [id number] Unknown [employer] CO [id number] Unknown [facility] [id number] Unknown [id number] Unknown [id number] Unknown [id number] Unknown [id number] Unknown [id number] Social History Date Type Detail Facility Start: 09-30-2018 End: 02-20-2024 Tobacco smoking status NHIS Ex-smoker [facility] Work Phone: Start: 02-13-1972 End: 05-15-1988 History of tobacco use Current smoker [facility] Work Phone: Start: 02-13-1972 End: 05-15-1988 History of tobacco use Cigarette Smoker [facility] Work Phone: Start: 06-23-2021 End: 05-31-2024 Alcohol intake Current non-drinker of alcohol (finding) [facility] Start: 1955 Sex Assigned At Not on file [facility] Start: 09-30-2018 End: 10-05-2022 Cigarettes smoked current (pack per day) - Reported 2 [facility] Start: 09-30-2018 End: 02-20-2024 Tobacco use and exposure Smokeless tobacco non-user [facility] Start: 03-23-2021 End: 01-21-2022 Exposure to SARS-CoV-2 (event) Not sure [facility] Start: 1955 Sex Assigned At Female W [facility] Work Phone: Start: 10-05-2022 End: 11-25-2022 Tobacco use panel [facility] Adult Depression Screening Assessment 0 [facility] Medical Equipment Procedure Code Equipment Code Equipment Origin al Text Equipment Identifier Dates Xzy-Ld-S-Kind Implant - [id number] Start: 01-31-2012 Comment on above: Description: C1713,S CREW Screw Bn 3.5mm 45mm Ti Harris - [id number] Start: 01-31-2012 Wire Fix .054in 6in Krsh Ss Ns - [id number] Start: 01-31-2012 Comment on above: Description: ONE .O5 4 KWIRE EXPLANTED Clinical Notes 11-04-2013 to 05-31-2024 Shin Arias DO - 05/31/2024 11:10 AM ESTTelephone Alexander - Jamia Young - 05/21/2024 8:53 AM ESTTelephone Encounter - Jamia Young - 05/21/2024 8:53 AM ESTPatient Instructions Note Date & Type Note Facility 05-31-2024 Note HNO ID: [id number] Author: SHIN ARIAS, DO Service: ? Author Type: Physician Type: Progress Notes Filed: 05/31/2024 11:17 Note Text: CC: Henry Brock is a 68 year old female who presents to the office for followu p HPI: Previously Recently had cataract surgery by Dr. Patterson at [facility]. Has had struggles with her vision since these procedures. Has gotten 2nd opinion by Dr. Alma Downing and diagnosed with rosacea in her eyes. She was started on Restasis eye drops- but not able to afford these drops half-way. Has had extremely dried and irriated feeling eyes since this started. Has a follow up with Dr. Downing for her eyes at end of the month. Hypothyroidism, was on 60 mg of armour thyroid medication. Was struggling with a lot of symptoms regarding to her thyroid so her dose was increased to 90 mg a day. Thinks this is helping her symptoms. Has had some hair thinning symptoms as well. Taking liquid iodine support 3 drops a day Brain fog and fatigue symptoms. Cardiac murmur, tricuspid regurgitation, moderate/severe on previous ECHO- does get occasional palpitations and dyspnea, otherwise feels well Currently Diagnosed with rosacea of her eyes, struggling with the symptoms. Process Coordinator started her on oral doxycycline and other eye drops due to extreme cost of the Restasis drops Hypothyroidism, was on 60 mg of armour thyroid medication. Was struggling with a lot of symptoms regarding to her thyroid so her dose was increased to 90 mg a day. Thinks this is helping her symptoms. Has had some hair thinning symptoms as well. Taking liquid iodine support 3 drops a day Brain fog and fatigue symptoms. Stable, knows she has a very busy schedule with taking care of her granddaughters Cardiac murmur, tricuspid regurgitation, moderate/severe on previous ECHO- does get occasional palpitations and has noticed increasing symptoms of dyspnea, otherwise feels well. No chest pain or pressure PAST MEDICAL HISTORY Diagnosis Date Abnormal glandular Papanicolaou smear of cervix Abn. Pap smear (cervix) Asymptomatic varicose veins Depressive disorder, not elsewhere classified 09/27/2006 Hearing decreased Hyperlipidemia Hypothyroidism 2010 HERNAN on CPAP [facility] Peripheral vascular disease, unspecified (HCC) varicose [...] Current Outpatient Medications Medication Sig ARMOUR THYROID 90 mg tablet Take 1 tablet by mouth once daily. traZODone (DESYREL) 50 mg tablet TAKE 1 TO 2 TABLETS AT BEDTIME FOR SLEEP dextroamphetamine-amphetamine (ADDERALL) 10 mg tablet Take 0.5-1 tablets by mouth once daily for 30 days. FLUoxetine (PROZAC) 10 mg capsule Take 1 capsule by mouth once daily. SPANNER OPERATOR THYROID 90 mg tablet Take 1 tablet by mouth once daily. magnesium oxide 400 mg magnesium tab Take 1 tablet by mouth once daily. TURMERIC ORAL Take 2,500 mg by mouth once daily. Cholecalciferol, Vitamin D3, 125 mcg (5,000 unit) cap Take 1 capsule by mouth once daily. ARMOUR THYROID 60 mg tablet Take 1 tablet by mouth once daily. (Patient not taking: Reported on 02/20/2024) mometasone (ELOCON) 0.1 % ointment Apply to affected area once daily as needed. Once daily as needed on rash mupirocin (BACTROBAN) 2 % ointment Apply to affected area twice daily as needed (skin infection). omega 2-qwq-dqt-fish oil (FISH OIL) 100-160-1,000 mg cap Take [...] 1 tablet by mouth three times daily. (Patient taking differently: Take 500 mg by mouth once daily.) PROPYLENE GLYCOL/PEG 400 (BLINK TEARS LUBRICATING) Eye Drops Use 1 Drop in both eyes four times daily. Aspirin 81 mg Tab Take 4 tablets by mouth one time only for 1 dose. (Patient taking differently: Take 81 mg by mouth one time only.) No cur (more content not included)... [facility] 05-31-2024 History of Present illness Narrative CC: Henry Brock is a 68 year old female who presents to the office for followu p HPI: Previously Recently had cataract surgery by Dr. Patterson at [facility]. Has had struggles with her vision since these procedures. Has gotten 2nd opinion by Dr. Alma Downing and diagnosed with rosacea in her eyes. She was started on Restasis eye drops- but not able to afford these drops half-way. Has had extremely dried and irriated feeling eyes since this started. Has a follow up with Dr. Downing for her eyes at end of the month. Hypothyroidism, was on 60 mg of armour thyroid medication. Was struggling with a lot of symptoms regarding to her thyroid so her dose was increased to 90 mg a day. Thinks this is helping her symptoms. Has had some hair thinning symptoms as well. Taking liquid iodine support 3 drops a day Brain fog and fatigue symptoms. Cardiac murmur, tricuspid regurgitation, moderate/severe on previous ECHO- does get occasional palpitations and dyspnea, otherwise feels well Currently Diagnosed with rosacea of her eyes, struggling with the symptoms. Process Coordinator started her on oral doxycycline and other eye drops due to extreme cost of the Restasis drops Hypothyroidism, was on 60 mg of armour thyroid medication. Was struggling with a lot of symptoms regarding to her thyroid so her dose was increased to 90 mg a day. Thinks this is helping her symptoms. Has had some hair thinning symptoms as well. Taking liquid iodine support 3 drops a day Brain fog and fatigue symptoms. Stable, knows she has a very busy schedule with taking care of her granddaughters Cardiac murmur, tricuspid regurgitation, moderate/severe on previous ECHO- does get occasional palpitations and has noticed increasing symptoms of dyspnea, otherwise feels well. No chest pain or pressure PAST MEDICAL HISTORY Diagnosis Date Abnormal glandular Papanicolaou smear of cervix Abn. Pap smear (cervix) Asymptomatic varicose veins Depressive disorder, not elsewhere classified 09/27/2006 Hearing decreased Hyperlipidemia Hypothyroidism 2010 HERNAN on CPAP [facility] Peripheral vascular disease, unspecified (HCC) varicose [...] Current Outpatient Medications Medication Sig ARMOUR THYROID 90 mg tablet Take 1 tablet by mouth once daily. traZODone (DESYREL) 50 mg tablet TAKE 1 TO 2 TABLETS AT BEDTIME FOR SLEEP dextroamphetamine-amphetamine (ADDERALL) 10 mg tablet Take 0.5-1 tablets by mouth once daily for 30 days. FLUoxetine (PROZAC) 10 mg capsule Take 1 capsule by mouth once daily. SPANNER OPERATOR THYROID 90 mg tablet Take 1 tablet by mouth once daily. magnesium oxide 400 mg magnesium tab Take 1 tablet by mouth once daily. TURMERIC ORAL Take 2,500 mg by mouth once daily. Cholecalciferol, Vitamin D3, 125 mcg (5,000 unit) cap Take 1 capsule by mouth once daily. ARMOUR THYROID 60 mg tablet Take 1 tablet by mouth once daily. (Patient not taking: Reported on 02/20/2024) mometasone (ELOCON) 0.1 % ointment Apply to affected area once daily as needed. Once daily as needed on rash mupirocin (BACTROBAN) 2 % ointment Apply to affected area twice daily as needed (skin infection). omega 6-hdh-pus-fish oil (FISH OIL) 100-160-1,000 mg cap Take [...] 1 tablet by mouth three times daily. (Patient taking differently: Take 500 mg by mouth once daily.) PROPYLENE GLYCOL/PEG 400 (BLINK TEARS LUBRICATING) Eye Drops Use 1 Drop in both eyes four times daily. Aspirin 81 mg Tab Take 4 tablets by mouth one time only for 1 dose. (Patient taking differently: Take 81 mg by mouth one time only.) No current facility-administered medications for this visit. ALLERGIES Allergen Reactions Bactrim [Sulfametho* Hives Morphine Sulfate Itching Tea Tree Oil Rash Social History Tobacco Use Smoking status: Former Current packs/day: 0.00 Average packs/day: 1 pack/day for 15.0 years (15.0 ttl pk-yrs) Types: Cigarettes Start date: 02/13/1972 Quit date: 02/12/1987 Years since quittin.3 Smokeless tobacco: Never Vaping Use Vaping status: Never Used Substance Use Topics Alcohol use: No Drug use: No ROS: See HPI PE: BP 146/82 Pulse 76 Temp (Src) 98.3 (Temporal) Resp 16 Wt 122 lb 2.2 oz (55.4kg) LMP 10/13/2006 Gen: A&OX3, NAD, non-toxic appearing HEENT: PERRLA, EOMs intact b/l, nares without drainage, pharynx without erythema, exudate, lesions, or drainage. Uvula midline. MMM Neck: No LAD, no thyromegaly, no meningismus. CV: RRR, LLSB 2/6 blowing murmur Lungs: CTA b/l, no wheezing Skin: No rashes, lesions, or wounds on exposed skin. No edema, normal pulses Abd: soft, NT, ND, normal BS, no masses ASSESSMENT/PLAN: 1. CARPENTER (dyspnea on exertion) - ICD9: 786.09, ICD10: R06.09 (primary diagnosis) ECG today with sinus bradycardia Check ECHO Consider ZIO media monitor and stress testing as d/w her today as well - ECG COMPLETE - ECHO - PERFLUTREN LIPID MICROSPHERES 1.1 MG/ML INJECTION IN NS 10 ML - SODIUM CHLORIDE 0.9 % (FLUSH) INJECTION SYRINGE 2. Moderate tricuspid regurgitation by prior echocardiography - ICD9: 397.0, ICD10: I07.1 ECG today with sinus bradycardia Check ECHO Consider ZIO media monitor and stress testing as d/w her today as well - ECG COMPLETE - ECHO - PERFLUTREN LIPID MICROSPHERES 1.1 MG/ML INJECTION IN NS 10 ML - SODIUM CHLORIDE 0.9 % (FLUSH) INJECTION SYRINGE 3. Anxiety with depression - ICD9: 300.4, ICD10: F41.8 stable 4. Fatigue, unspecified type - ICD9: 780.79, ICD10: R53.83 Chronic, stable 5. Hypothyroidism, unspecified type - ICD9: 244.9, ICD10: E03.9 - Instructed patient on importance of taking on an empty stomach either first thing in the morning or at bedtime. - THYROID STIMULATING HORMONE - T4 FREE/FREE THYROXINE 6. HERNAN (obstructive sleep apnea) - ICD9: 327.23, ICD10: G47.33 stable 7. Hx of ischemic vertebrobasilar artery cerebellar stroke - ICD9: V12.54, ICD10: Z86.73 Stable, no new symptoms 8. Vitamin B12 deficiency - ICD9: 266.2, ICD10: E53.8 Recheck labs - COMPREHENSIVE METABOLIC PANEL - COMPLETE BLOOD COUNT - VITAMIN B12 9. 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 Hyperglycemia - ICD9: 790.29, ICD10: R73.9 Recheck labs. - HEMOGLOBIN A1C 11. Dyslipidemia - ICD9: 272.4, ICD10: E78.5 - Control undetermined, due for labs - Continue current medications - Counseled on healthy diet and regular exercise - Discussed need for and benefit of weight loss. BMI 21.50 kg/(m^2) - LIPID PANEL BASIC 12. Vitamin D deficiency - ICD9: 268.9, ICD10: E55.9 Continue supplement - VITAMIN D 25 HYDROXY Shin Arias DO Return if no improvement. Follow up with Shin Arias DO. To ER if develops chest pain, shortness of breath. Discussed risks, benefits, alternatives, and potential side effects of medications. Patient/Guardian expressed understanding and agreed with the plan. See patient instructions. Shin Arias DO [address] [place] [address] documented in this encounter [facility] 05-21-2024 Telephone encounter Note Prescription Refill Information The patient has been identified by name and date of : Yes Caregiver verified no other encounters exist for this prescription request: Yes Caregiver confirmed with patient/requestor that no other refills are due, in the near future, with this provider at this time: Yes The last office visit in the department: 02-20-24 Does the patient have a future office visit with this provider/department: Yes Requested Prescriptions Pending Prescriptions Disp Refills ARMOUR THYROID 90 mg tablet 90 tablet 0 Sig: Take 1 tablet by mouth once daily. Jamia Young May 21, 2024 8:54 AM [facility] 05-21-2024 Miscellaneous Notes Prescription Refill Information The patient has been identified by name and date of : Yes Caregiver verified no other encounters exist for this prescription request: Yes Caregiver confirmed with patient/requestor that no other refills are due, in the near future, with this provider at this time: Yes The last office visit in the department: 02-20-24 Does the patient have a future office visit with this provider/department: Yes Requested Prescriptions Pending Prescriptions Disp Refills ARMOUR THYROID 90 mg tablet 90 tablet 0 Sig: Take 1 tablet by mouth once daily. Jamia Young May 21, 2024 8:54 AM documented in this encounter [facility] 04-17-2024 Note Patient Outreach (IN [facility]) TEEHENRY J ([id number]) 1955 F Date Time Provider Department 04/17/24 SHIN ARIAS During your visit today, we recorded the following information about you: Allergies As of Date: 04/17/2024 Noted Allergy Reaction BACTRIM (SULFAMETHOXAZOLE) 05/23/2014 4 - Hives MORPHINE SULFATE 03/30/2005 9 - Itching TEA TREE OIL 07/22/2009 2 - Rash Date Reviewed: 02/20/2024 Reviewed by: Kristina Gutierres LPN - Fully Assessed Visit Diagnosis:Encounter for screening mammogram for breast cancer [Z12.31] Order(s):[facility] [[id number]] Order #: [id number] FUTURE Prescriptions as of 04/22/2024 - traZODone (DESYREL) 50 mg tablet TAKE 1 TO 2 TABLETS AT BEDTIME FOR SLEEP - dextroamphetamine-amphetamine (ADDERALL) 10 mg tablet Take 0.5-1 tablets by mouth once daily for 30 days. - FLUoxetine (PROZAC) 10 mg capsule Take 1 capsule by mouth once daily. - SPANNER OPERATOR THYROID 90 mg tablet Take 1 tablet by mouth once daily. - magnesium oxide 400 mg magnesium tab Take 1 tablet by mouth once daily. - TURMERIC ORAL Take 2,500 mg by mouth once daily. - ARMOUR THYROID 90 mg tablet Take 1 tablet by mouth once daily. - Cholecalciferol, Vitamin D3, 125 mcg (5,000 unit) cap Take 1 capsule by mouth once daily. - ARMOUR THYROID 60 mg tablet Take 1 tablet by mouth once daily. - mometasone (ELOCON) 0.1 % ointment Apply to affected area once daily as needed. Once daily as needed on rash - mupirocin (BACTROBAN) 2 % ointment Apply to affected area twice daily as needed (skin infection). - omega 8-aoh-pco-fish oil (FISH OIL) 100-160-1,000 mg cap Take [...] 08/09/2021: .rxe Problem List As Of Date 04/17/2024 Noted Resolved DEPRESSIVE DISORDER NEC [F32.89] 09/27/2006 [...] with radiculopathy*07/17/2017 DDD (degenerative disc disease), lumbar [M51.36*07/17/2017 Hypothyroidism, acquired [E03.9] 07/25/2018 Well adult exam [Z00.00] 07/25/2018 Vertebral artery stenosis, bilateral [I65.03] 10/30/2018 Stroke due to occlusion of right cerebellar art*10/30/2018 Situational insomnia [F51.09] 12/21/2019 Anxiety with depression [F41.8] 12/21/2019 Attention deficit disorder (ADD) without hypera*09/21/2020 Left wrist pain [M25.532] 09/21/2020 Vitamin B12 deficiency [E53.8] 03/24/2021 (more content not included)... [facility] 04-15-2024 Telephone encounter Note PDMP website checked and validated. All prescriptions have been APPROPRIATELY filled. No suspicious activity was identified. 04/15/2024 by Jossy Gustafson APRN.CNP The following approved medication requests have been transmitted electronically. Requested Prescriptions Signed Prescriptions Disp Refills dextroamphetamine-amphetamine (ADDERALL) 10 mg tablet 30 tablet 0 Sig: Take 0.5-1 tablets by mouth once daily for 30 days. Authorizing Provider: JOSSY GUSTAFSON APRN.CNP [facility] 04-15-2024 Miscellaneous Notes PDMP website checked and validated. All prescriptions have been APPROPRIATELY filled. No suspicious activity was identified. 04/15/2024 by Jossy Gustafson APRN.CNP The following approved medication requests have been transmitted electronically. Requested Prescriptions Signed Prescriptions Disp Refills dextroamphetamine-amphetamine (ADDERALL) 10 mg tablet 30 tablet 0 Sig: Take 0.5-1 tablets by mouth once daily for 30 days. Authorizing Provider: JOSSY GUSTAFSON APRN.CNP Prescription Refill Information The patient has been identified by name and date of : Yes Caregiver verified no other encounters exist for this prescription request: Yes Caregiver confirmed with patient/requestor that no other refills are due, in the near future, with this provider at this time: Yes The last office visit in the department: 02-20-24 Does the patient have a future office visit with this provider/department: Yes Requested Prescriptions Pending Prescriptions Disp Refills dextroamphetamine-amphetamine (ADDERALL) 10 mg tablet 30 tablet 0 Sig: Take 0.5-1 tablets by mouth once daily for 30 days. Marilou Peck April 15, 2024 8:58 AM documented in this encounter [facility] 04-15-2024 Telephone encounter Note Patient is OUT of this medication if this can please be done ENRIQUETA. Thank you. Marilou Peck [facility] 04-15-2024 Miscellaneous Notes Patient is OUT of this medication if this can please be done ENRIQUETA. Thank you. Marilou Peck PATIENT WILL BE OUT MEDICATION BY THE MORNING OF Monday04/14/24. PATIENT NOTIFIED PHARMACY TO REQUEST REFILL ONE WEEK AGO, NO DOCUMENTED REQUEST AVAILABLE IN PATIENT'S CHART. Prescription Refill Information The patient has been identified by name and date of : Yes Caregiver verified no other encounters exist for this prescription request: Yes Caregiver confirmed with patient/requestor that no other refills are due, in the near future, with this provider at this time: Yes The last office visit in the department: 02/20/24 Does the patient have a future office visit with this provider/department: Yes 05/31/24 Requested Prescriptions Pending Prescriptions Disp Refills traZODone (DESYREL) 50 mg tablet 90 tablet 1 Sig: TAKE 1 TO 2 TABLETS AT BEDTIME FOR SLEEP Hannah Umaña April 13, 2024 8:36 AM documented in this encounter [facility] 04-15-2024 Telephone encounter Note Prescription Refill Information The patient has been identified by name and date of : Yes Caregiver verified no other encounters exist for this prescription request: Yes Caregiver confirmed with patient/requestor that no other refills are due, in the near future, with this provider at this time: Yes The last office visit in the department: 02-20-24 Does the patient have a future office visit with this provider/department: Yes Requested Prescriptions Pending Prescriptions Disp Refills dextroamphetamine-amphetamine (ADDERALL) 10 mg tablet 30 tablet 0 Sig: Take 0.5-1 tablets by mouth once daily for 30 days. Marilou Louisehl Pss April 15, 2024 8:[address] [facility] 04-13-2024 Telephone encounter Note PATIENT WILL BE OUT MEDICATION BY THE MORNING OF Monday04/14/24. PATIENT NOTIFIED PHARMACY TO REQUEST REFILL ONE WEEK AGO, NO DOCUMENTED REQUEST AVAILABLE IN PATIENT'S CHART. Prescription Refill Information The patient has been identified by name and date of : Yes Caregiver verified no other encounters exist for this prescription request: Yes Caregiver confirmed with patient/requestor that no other refills are due, in the near future, with this provider at this time: Yes The last office visit in the department: 02/20/24 Does the patient have a future office visit with this provider/department: Yes 05/31/24 Requested Prescriptions Pending Prescriptions Disp Refills traZODone (DESYREL) 50 mg tablet 90 tablet 1 Sig: TAKE 1 TO 2 TABLETS AT BEDTIME FOR SLEEP Hannah Umaña April 13, 2024 8:[address] [facility] 03-15-2024 Telephone encounter Note The patient has been identified by name and date of : Yes Caregiver verified no other encounters exist for this prescription request: Yes Caregiver confirmed with patient/requestor that no other refills are due, in the near future, with this provider at this time: Yes The last office visit in the department: 02/20/2024 Does the patient have a future office visit with this provider/department: 05/31/2024 Requested Prescriptions Pending Prescriptions Disp Refills FLUoxetine (PROZAC) 10 mg capsule 90 capsule 1 Sig: Take 1 capsule by mouth once daily. Patient reports she is completely out of medication. Genie Calles RN March 15, 2024 8:39 AM T [facility] 03-15-2024 Miscellaneous Notes The patient has been identified by name and date of : Yes Caregiver verified no other encounters exist for this prescription request: Yes Caregiver confirmed with patient/requestor that no other refills are due, in the near future, with this provider at this time: Yes The last office visit in the department: 02/20/2024 Does the patient have a future office visit with this provider/department: 05/31/2024 Requested Prescriptions Pending Prescriptions Disp Refills FLUoxetine (PROZAC) 10 mg capsule 90 capsule 1 Sig: Take 1 capsule by mouth once daily. Patient reports she is completely out of medication. Genie Calles RN March 15, 2024 8:39 AM documented in this encounter [facility] 02-23-2024 Telephone encounter Note Phoned patient aware rx sent to pharmacy per PCP with understanding. [facility] 02-23-2024 Miscellaneous Notes Phoned patient aware rx sent to pharmacy per PCP with understanding. The following approved medication requests have been transmitted electronically. Requested Prescriptions Signed Prescriptions Disp Refills SPANNER OPERATOR THYROID 90 mg tablet 90 tablet 1 Sig: Take 1 tablet by mouth once daily. Authorizing Provider: SHIN ARIAS DO Patient calling asking if PCP could send 90 day rx to [facility] 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 She said that pharmacy has it in stock. She only has a few tablets left of the Amour Thyroid left. Pending rx not sure if correct dose wanted. Needs refills completed. Please advise documented in this encounter [facility] 02-23-2024 Telephone encounter Note The following approved medication requests have been transmitted electronically. Requested Prescriptions Signed Prescriptions Disp Refills SPANNER OPERATOR THYROID 90 mg tablet 90 tablet 1 Sig: Take 1 tablet by mouth once daily. 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 She said that pharmacy has it in stock. She only has a few tablets left of the Amour Thyroid left. Pending rx not sure if correct dose wanted. Needs refills completed. Please advise [facility] 02-20-2024 Telephone encounter Note Pt notified and voiced understanding. Shanti Cary MA [facility] 02-20-2024 Miscellaneous Notes Pt notified and voiced understanding. Shanti Cary MA Please let her know that her bones show that she has thinning which is osteopenia of the bones, but no osteoporosis. Needs to continue her calcium and vitamin D supplements and weight bearing exercise Shin Arias DO Patient was in for 02/20/24 appointment and forgot to ask about her results for her bone density scan. Copy of result given to patient patient does request provider advise what it says in general terminology. Kristina Gutierres LPN documented in this encounter [facility] 02-20-2024 Telephone encounter Note Please let her know that her bones show that she has thinning which is osteopenia of the bones, but no osteoporosis. Needs to continue her calcium and vitamin D supplements and weight bearing exercise Shin Arias DO [facility] 02-20-2024 Telephone encounter Note Patient was in for 02/20/24 appointment and forgot to ask about her results for her bone density scan. Copy of result given to patient patient does request provider advise what it says in general terminology. Kristina Gutierres LPN [facility] 02-20-2024 Note HNO ID: [id number] Author: SHIN ARIAS DO Service: ? Author Type: Physician Type: Progress Notes Filed: 02/20/2024 13:56 Note Text: CC: Henry Brock is a 68 year old female who presents to the office for follow up HPI: Recently had cataract surgery by Dr. Patterson at [facility]. Has had struggles with her vision since these procedures. Has gotten 2nd opinion by Dr. Alma Downing and diagnosed with rosacea in her eyes. She was started on Restasis eye drops- but not able to afford these drops intermediate frame tender. Has had extremely dried and irriated feeling eyes since this started. Has a follow up with Dr. Downing for her eyes at end of the month. Hypothyroidism, was on 60 mg of armour thyroid medication. Was struggling with a lot of symptoms regarding to her thyroid so her dose was increased to 90 mg a day. Thinks this is helping her symptoms. Has had some hair thinning symptoms as well. Taking liquid iodine support 3 drops a day Brain fog and fatigue symptoms. Cardiac murmur, tricuspid regurgitation, moderate/severe on previous ECHO- does get occasional palpitations and dyspnea, otherwise feels well PAST MEDICAL HISTORY Diagnosis Date Abnormal glandular Papanicolaou smear of cervix Abn. Pap smear (cervix) Asymptomatic varicose veins Depressive disorder, not elsewhere classified 09/27/2006 Hearing decreased Hyperlipidemia Hypothyroidism 2010 HERNAN on CPAP [facility] Peripheral vascular disease, unspecified (HCC) varicose [...] cuff repair Current Outpatient Medications Medication Sig magnesium oxide 400 mg magnesium tab Take 1 tablet by mouth once daily. TURMERIC ORAL Take 2,500 mg by mouth once daily. ARMOUR THYROID 90 mg tablet Take 1 tablet by mouth once daily. dextroamphetamine-amphetamine (ADDERALL) 10 mg tablet Take 0.5-1 tablets by mouth once daily for 30 days. traZODone (DESYREL) 50 mg tablet TAKE 1 TO 2 TABLETS AT BEDTIME FOR SLEEP FLUoxetine (PROZAC) 10 mg capsule Take 1 capsule by mouth once daily. omega 5-pjw-aey-fish oil (FISH OIL) 100-160-1,000 mg cap Take 1 capsule by mouth. selenium 200 mcg cap Take by mouth. zinc sulfate (ZINC-15 ORAL) Take by mouth. vitamin B complex (B COMPLEX ORAL) Take 1 tablet by mouth once daily. ascorbic acid, vitamin C, (VITAMIN C) 500 mg tablet Take 1 tablet by mouth three times daily. (Patient taking differently: Take 500 mg by mouth once daily.) Cholecalciferol, Vitamin D3, 125 mcg (5,000 unit) cap Take 1 capsule by mouth once daily. ARMOUR THYROID 60 mg tablet Take 1 tablet by mouth once daily. (Patient not taking: Reported on 02/20/2024) mometasone (ELOCON) 0.1 % ointment Apply to affected area once daily as needed. Once daily as needed on rash mupirocin (BACTROBAN) 2 % ointment Apply to affected area twice daily as needed (skin infection). CPAP Initiate CPAP @ 6 cm of water with humidification. Mask (per patient preference) optional chin strap (if indicated) , filters, tubing, humidifier and lifetime supplies. L-LYSINE ORAL Take 1 capsule by mouth once daily. cyclobenzaprine (FLEXERIL) 10 mg tablet Take 1 tablet by mouth three times daily as needed for Muscle Spasm. PROPYLENE GLYCOL/PEG 400 (BLINK TEARS LUBRICATING) Eye Drops Use 1 Drop in both eyes four times daily. Aspirin 81 mg Tab Take 4 tablets by mouth one time only for 1 dose. (Patient taking differently: Take 81 mg by mouth one time only.) No current facility-administered medications for this visit. ALLERGIES Allergen Reactions Bactrim [Sulfametho* Hives Morphine Sulfate Itching Tea Tree Oil Rash Social History Tobacco Use Smoking status: Former Current packs/day: 0.00 Average packs/day: 1 pack/day for 15.0 years (15.0 ttl pk-yrs) Types: Cigarettes Start date: 02/13/1972 Quit date: 02/12/1987 Years since quittin.0 Smokeless tobacco: Never Vaping Use Vaping status: Never Used Substance Use Topics Alcohol use: No Drug use: No ROS: Gen: Negative fevers or chills. See HPI PE: BP 122/74 Pulse 60 Resp 16 Wt 120 lb 9.6 oz (54.7kg) SpO2 99% LMP 10/13/2006 Gen: AANDOX3, NAD, non-toxic appearing HEENT: PERRLA, EOMs intact b/l, nares without drainage, pharynx without erythema, exudate, lesions, or drainage. Uvula midline. Neck: No LAD, no thyromegaly, no meningis (more content not included)... [facility] 02-20-2024 History of Present illness Narrative CC: Henry Brock is a 68 year old female who presents to the office for follow up HPI: Recently had cataract surgery by Dr. Patterson at [facility]. Has had struggles with her vision since these procedures. Has gotten 2nd opinion by Dr. Alma Downing and diagnosed with rosacea in her eyes. She was started on Restasis eye drops- but not able to afford these drops intermediate frame tender. Has had extremely dried and irriated feeling eyes since this started. Has a follow up with Dr. Downing for her eyes at end of the month. Hypothyroidism, was on 60 mg of armour thyroid medication. Was struggling with a lot of symptoms regarding to her thyroid so her dose was increased to 90 mg a day. Thinks this is helping her symptoms. Has had some hair thinning symptoms as well. Taking liquid iodine support 3 drops a day Brain fog and fatigue symptoms. Cardiac murmur, tricuspid regurgitation, moderate/severe on previous ECHO- does get occasional palpitations and dyspnea, otherwise feels well PAST MEDICAL HISTORY Diagnosis Date Abnormal glandular Papanicolaou smear of cervix Abn. Pap smear (cervix) Asymptomatic varicose veins Depressive disorder, not elsewhere classified 09/27/2006 Hearing decreased Hyperlipidemia Hypothyroidism 2010 HERNAN on CPAP [facility] Peripheral [...] cuff repair Current Outpatient Medications Medication Sig magnesium oxide 400 mg magnesium tab Take 1 tablet by mouth once daily. TURMERIC ORAL Take 2,500 mg by mouth once daily. ARMOUR THYROID 90 mg tablet Take 1 tablet by mouth once daily. dextroamphetamine-amphetamine (ADDERALL) 10 mg tablet Take 0.5-1 tablets by mouth once daily for 30 days. traZODone (DESYREL) 50 mg tablet TAKE 1 TO 2 TABLETS AT BEDTIME FOR SLEEP FLUoxetine (PROZAC) 10 mg capsule Take 1 capsule by mouth once daily. omega 8-fah-ynb-fish oil (FISH OIL) 100-160-1,000 mg cap Take 1 capsule by mouth. selenium 200 mcg cap Take by mouth. zinc sulfate (ZINC-15 ORAL) Take by mouth. vitamin B complex (B COMPLEX ORAL) Take 1 tablet by mouth once daily. ascorbic acid, vitamin C, (VITAMIN C) 500 mg tablet Take 1 tablet by mouth three times daily. (Patient taking differently: Take 500 mg by mouth once daily.) Cholecalciferol, Vitamin D3, 125 mcg (5,000 unit) cap Take 1 capsule by mouth once daily. ARMOUR THYROID 60 mg tablet Take 1 tablet by mouth once daily. (Patient not taking: Reported on 02/20/2024) mometasone (ELOCON) 0.1 % ointment Apply to affected area once daily as needed. Once daily as needed on rash mupirocin (BACTROBAN) 2 % ointment Apply to affected area twice daily as needed (skin infection). CPAP Initiate CPAP @ 6 cm of water with humidification. Mask (per patient preference) optional chin strap (if indicated) , filters, tubing, humidifier and lifetime supplies. L-LYSINE ORAL Take 1 capsule by mouth once daily. cyclobenzaprine (FLEXERIL) 10 mg tablet Take 1 tablet by mouth three times daily as needed for Muscle Spasm. PROPYLENE GLYCOL/PEG 400 (BLINK TEARS LUBRICATING) Eye Drops Use 1 Drop in both eyes four times daily. Aspirin 81 mg Tab Take 4 tablets by mouth one time only for 1 dose. (Patient taking differently: Take 81 mg by mouth one time only.) No current facility-administered medications for this visit. ALLERGIES Allergen Reactions Bactrim [Sulfametho* Hives Morphine Sulfate Itching Tea Tree Oil Rash Social History Tobacco Use Smoking status: Former Current packs/day: 0.00 Average packs/day: 1 pack/day for 15.0 years (15.0 ttl pk-yrs) Types: Cigarettes Start date: 02/13/1972 Quit date: 02/12/1987 Years since quittin.0 Smokeless tobacco: Never Vaping Use Vaping status: Never Used Substance Use Topics Alcohol use: No Drug use: No ROS: Gen: Negative fevers or chills. See HPI PE: BP 122/74 Pulse 60 Resp 16 Wt 120 lb 9.6 oz (54.7kg) SpO2 99% LMP 10/13/2006 Gen: A&OX3, NAD, non-toxic appearing HEENT: PERRLA, EOMs intact b/l, nares without drainage, pharynx without erythema, exudate, lesions, or drainage. Uvula midline. Neck: No LAD, no thyromegaly, no meningismus. CV: RRR, 2/6 HSM LLSB murmur Lungs: CTA b/l, no wheezing Skin: No rashes, lesions, or wounds on exposed skin. Cooperative Thinning hair Fatigued appearing ASSESSMENT/PLAN: 1. CARPENTER (dyspnea on exertion) - ICD9: 786.09, ICD10: R06.09 (primary diagnosis) Stable symptoms Secondary to tricuspid regurgitation moderate/severe, normal systolic EF - ECHO - PERFLUTREN LIPID MICROSPHERES 1.1 MG/ML INJECTION IN NS 10 ML - SODIUM CHLORIDE 0.9 % (FLUSH) INJECTION SYRINGE 2. Hypothyroidism, unspecified type - ICD9: 244.9, ICD10: E03.9 - Instructed patient on importance of taking on an empty stomach either first thing in the morning or at bedtime. - ARMOUR THYROID 90 MG TABLET 3. Palpitations - ICD9: 785.1, ICD10: R00.2 See above - ECHO - PERFLUTREN LIPID MICROSPHERES 1.1 MG/ML INJECTION IN NS 10 ML - SODIUM CHLORIDE 0.9 % (FLUSH) INJECTION SYRINGE 4. Moderate tricuspid regurgitation by prior echocardiography - ICD9: 397.0, ICD10: I07.1 See above - ECHO - PERFLUTREN LIPID MICROSPHERES 1.1 MG/ML INJECTION IN NS 10 ML - SODIUM CHLORIDE 0.9 % (FLUSH) INJECTION SYRINGE 5. Fatigue, unspecified type - ICD9: 780.79, ICD10: R53.83 See above, multifactorial Shin Arias DO Return if no improvement. Follow up with Shin Arias DO. To ER if develops chest pain, shortness of breath. Discussed risks, benefits, alternatives, and potential side effects of medications. Patient/Guardian expressed understanding and agreed with the plan. See patient instructions. Shin Arias DO [address] [place] [address] documented in this encounter [facility] 02-06-2024 Telephone encounter Note Pt's chart shows testing was completed. Leeann Argueta LPN [facility] 02-06-2024 Miscellaneous Notes Pt's chart shows testing was completed. Leeann Argueta LPN Spoke with pt gave information provided . Pt voices understanding. Pt states he said he was going to send yourself a note . She does not know if he meant to schedule those or not. But she has not heard he ordered it. Pt will slate picker handicap letter today . Will take script down to [facility] for slate picker. Is Dr. Urias ordering this testing? Handicap placard is now printed for her Shin Arias DO Pt calls to report she had foot surgery in July. Dr. Gui Urias (prison classification counselor) has pt off work another month and advised pt not to walk too much. Pt is asking if pcp would write a rx for a handicap placard. Pt reports Dr. Urias also wants pt to get a dexa scan and a CT of foot and is going to sent report to pcp office. Please review and advise. Leeann Argueta LPN documented in this encounter [facility] 01-30-2024 Telephone encounter Note All labs in process Jaz Solis MA [facility] 01-30-2024 Miscellaneous Notes All labs in process Jaz Solis MA Additional lab orders placed. Ivana Mitchell APRN.CNP Pt. would like CBC added to labs today for fatigue. documented in this encounter [facility] 01-30-2024 Telephone encounter Note Additional lab orders placed. Ivana Mitchell APRN.CNP [facility] 01-30-2024 Telephone encounter Note Pt. would like CBC added to labs today for fatigue. [facility] 01-26-2024 Telephone encounter Note Message left notifying prescriptions were refilled and lab orders placed . Shanti Cary MA [facility] 01-26-2024 Miscellaneous Notes Message left notifying prescriptions were refilled and lab orders placed . Shanti Cary MA Orders placed for thyroid labs as well. The following approved medication requests have been transmitted electronically. Requested Prescriptions Signed Prescriptions Disp Refills ARMOUR THYROID 90 mg tablet 30 tablet 0 Sig: Take 1 tablet by mouth once daily. Authorizing Provider: IVANA MITCHELL dextroamphetamine-amphetamine (ADDERALL) 10 mg tablet 30 tablet 0 Sig: Take 0.5-1 tablets by mouth once daily for 30 days. Authorizing Provider: IVANA MITCHELL APRN.CNP PDMP website checked and validated. All prescriptions have been APPROPRIATELY filled. No suspicious activity was identified. 01/26/2024 by Ivana Mitchell CNP. Patient phoned asking pcp to order the 90 mg armour thyroid (pended), just until she see's you at next appt on 02-20-24. Reports she only has 2 pills left. Reports she is having a lot of issues: hair falling out, and other things, and is pretty sure it's related to her thyroid. Asking provider to also order Thyroid labs. Pended. Also requesting refill on adderall. Pended. JESUS MANUEL Caballero. Last ov: 10-21-23 Next ov: 02-20-24 documented in this encounter [facility] 01-26-2024 Telephone encounter Note Orders placed for thyroid labs as well. The following approved medication requests have been transmitted electronically. Requested Prescriptions Signed Prescriptions Disp Refills ARMOUR THYROID 90 mg tablet 30 tablet 0 Sig: Take 1 tablet by mouth once daily. Authorizing Provider: IVANA MITCHELL dextroamphetamine-amphetamine (ADDERALL) 10 mg tablet 30 tablet 0 Sig: Take 0.5-1 tablets by mouth once daily for 30 days. Authorizing Provider: IVANA MITCHELL APRN.CNP PDM website checked and validated. All prescriptions have been APPROPRIATELY filled. No suspicious activity was identified. 01/26/2024 by Ivana Mitchell CNP. [facility] 01-26-2024 Telephone encounter Note Patient phoned asking pcp to order the 90 mg armour thyroid (pended), just until she see's you at next appt on 02-20-24. Reports she only has 2 pills left. Reports she is having a lot of issues: hair falling out, and other things, and is pretty sure it's related to her thyroid. Asking provider to also order Thyroid labs. Pended. Also requesting refill on adderall. Pended. QUYNHAlivia Caballero. Last ov: 10-21-23 Next ov: 02-20-24 [facility] 01-02-2024 Telephone encounter Note The following approved medication requests have been transmitted electronically. Requested Prescriptions Signed Prescriptions Disp Refills dextroamphetamine-amphetamine (ADDERALL) 10 mg tablet 30 tablet 0 Sig: Take 0.5-1 tablets by mouth once daily for 30 days. Authorizing Provider: MARTHA CAMPOS PA-C [facility] 01-02-2024 Miscellaneous Notes The following approved [...] 2024 9:47 AM documented in this encounter [facility] 01-01-2024 Telephone encounter Note Prescription Refill [...] Corrine Peck January 01, 2024 9:47 AM [facility] 10-26-2023 Telephone encounter Note Order and all information faxed to [facility] as requested. [facility] 10-26-2023 Miscellaneous Notes Order and all information faxed to [facility] as requested. Order printed and signed. In outbox. Please fax with notes. Thank you, Jossy Gustafson APRN.TRADE SPECIALIST Patient calling asking if order for CPAP supplies had been faxed to [facility]. Patient said [facility] needs copy of office visit notes from 10/21/2023 visit and order faxed to [phone]. Pending order with diagnosis to file. Please advise documented in this encounter [facility] 10-26-2023 Telephone encounter Note Order printed and signed. In outbox. Please fax with notes. Thank you, Jossy Gustafson APRN.TRADE SPECIALIST [facility] 10-25-2023 Telephone encounter Note Patient calling asking if order for CPAP supplies had been faxed to [facility]. Patient said [facility] needs copy of office visit notes from 10/21/2023 visit and order faxed to [phone]. Pending order with diagnosis to file. Please advise [facility] 10-23-2023 Telephone encounter Note Last script for vitamin D was sent to [facility]. Prescription Refill Information The patient has [...] Schwarz LPN October 23, 2023 8:42 AM [facility] 10-23-2023 Miscellaneous Notes Last script for [...] 2023 8:42 AM documented in this encounter [facility] 10-23-2023 Note HNO ID: [id number] Author: SHIN ARIAS, DO Service: ? Author Type: Physician Type: Progress Notes Filed: 10/23/2023 07:32 Note Text: CC: Henry Brock is a 68 year old female who presents to the office for follow up HPI: She is overall doing well She is post operative from her right foot 1st MTP fusion surgery by Cardiology Rn Dr. Urias. She is in a walking [...] still off work post op from her [employer] job [employer], she has been compliant with her CPAP/Bipap. She is going to trial a few masks to see what seems to fit best at this time with weight fluctuations. She is going to be changing to [facility] at this time. She uses the mask/machine and gives her benefit for her sleep and wellness in the morning and daytime PAST MEDICAL HISTORY Diagnosis Date Abnormal glandular Papanicolaou smear of cervix Abn. Pap smear (cervix) Asymptomatic varicose veins Depressive disorder, not elsewhere classified 09/27/2006 Hearing decreased Hyperlipidemia Hypothyroidism 2010 [place] on CPAP [facility] Peripheral vascular disease, unspecified (HCC) varicose [...] twice daily as needed (skin infection). omega 3-hps-kgz-fish oil (FISH OIL) 100-160-1,000 mg cap Take [...] CPAP/Bipap as directed, fax new order to [employer], she is in compliance 1. Hypothyroidism, unspecified type - ICD9: 244.9, ICD1 (more content not included)... [facility] 10-23-2023 History of Present illness Narrative CC: Henry Brock is a 68 year old female who presents to the office for follow up HPI: She is overall doing well She is post operative from her right foot 1st MTP fusion surgery by Cardiology Rn Dr. Urias. She is in a walking [...] still off work post op from her [employer] job [employer], she has been compliant with her CPAP/Bipap. She is going to trial a few masks to see what seems to fit best at this time with weight fluctuations. She is going to be changing to [employer] at this time. She uses the mask/machine and gives her benefit for her sleep and wellness in the morning and daytime PAST MEDICAL HISTORY Diagnosis Date Abnormal glandular Papanicolaou smear of cervix Abn. Pap smear (cervix) Asymptomatic varicose veins Depressive disorder, not elsewhere classified 09/27/2006 Hearing decreased Hyperlipidemia Hypothyroidism 2010 [place] on CPAP [facility] Peripheral vascular disease, unspecified (HCC) varicose [...] twice daily as needed (skin infection). omega 6-sse-goc-fish oil (FISH OIL) 100-160-1,000 mg cap Take [...] CPAP/Bipap as directed, fax new order to [facility], she is in compliance 1. Hypothyroidism, unspecified [...] See patient instructions. Shin Arias DO [address] [place] [address] documented in this encounter [facility] 10-21-2023 Instructions Shin Arias DO - 10/21/2023 11:21 AM EDT Bone stimulator ??? Ask Dr. Urias if this is needed Protein pea powder or whey powder - scoop into milk or water once a day Transparent labs brand or Organic Bone broth daily drink documented in this encounter [facility] 10-20-2023 Telephone encounter Note OV appt made as recommended below. Pt unable to do virtual visit. Jazlyn Marquez RN [facility] 10-20-2023 Miscellaneous Notes OV appt made as recommended below. Pt unable to do virtual visit. Jazlyn Marquez RN Left message to return call for appt. Would recommend virtual visit to address this. Thank you, Jossy Gustafson APRN.CNP Francia from [facility] called in and reports Pt is going to be getting their CPAP supplies through them now. She was asking to have OV notes and updated orders faxed to # [phone]. I did not see orders, or mention of Pts CPAP in any recent notes with PCP. I tried calling Pt to see if she had talked with provider about switching CPAP supplies from [facility] to [facility]. I didn't see any messages in the computer where the Pt had called in asking for supplies to be switched, so called Pt to verify. Pt may need to come in and be seen by provider as there is nothing in notes about CPAP. documented in this encounter [facility] 10-20-2023 Telephone encounter Note Left message to return call for appt. [facility] 10-20-2023 Telephone encounter Note Would recommend virtual visit to address this. Thank you, Jossy Gustafson APRN.CNP [facility] 10-20-2023 Telephone encounter Note Francia from [facility] called in and reports Pt is going to be getting their CPAP supplies through them now. She was asking to have OV notes and updated orders faxed to # [phone]. I did not see orders, or mention of Pts CPAP in any recent notes with PCP. I tried calling Pt to see if she had talked with provider about switching CPAP supplies from [facility] to [facility]. I didn't see any messages in the computer where the Pt had called in asking for supplies to be switched, so called Pt to verify. Pt may need to come in and be seen by provider as there is nothing in notes about CPAP. T [facility] 10-04-2023 Telephone encounter Note Spoke with pt gave information provided . Pt voices understanding. Pt states he said he was going to send yourself a note . She does not know if he meant to schedule those or not. But she has not heard he ordered it. Pt will slate picker handicap letter today . [facility] take script [facility] for slate picker. [facility] 10-03-2023 Telephone encounter Note Is Dr. Urias ordering this testing? Handicap placard is now printed for her Shin Arias DO [facility] 10-03-2023 Telephone encounter Note Pt calls to report she had foot surgery in July. Dr. Gui Urias (prison classification counselor) has pt off work another month and advised pt not to walk too much. Pt is asking if pcp would write a rx for a handicap placard. Pt reports Dr. Urias also wants pt to get a dexa scan and a CT of foot and is going to sent report to pcp office. Please review and advise. Leeann Argueta LPN [facility] 07-15-2023 Miscellaneous Notes Pt. informed via My Chart. Please inform patient that her thyroid labs all look great, no changes needed Shin Arias DO documented in this encounter [facility] 07-14-2023 Note HNO ID: [id number] Author: SHIN ARIAS DO Service: ? Author Type: Physician Type: Progress Notes Filed: 07/15/2023 07:19 Note Text: CC: Henry Brock is a 67 year old female who [...] this brings her melyssa. 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 Interested in seeing Cardiology Rn at [facility]. Currently She is going to be having [...] with medication. Has great support from her advent family PAST MEDICAL HISTORY Diagnosis Date Abnormal glandular Papanicolaou smear of cervix Abn. Pap smear (cervix) Asymptomatic varicose veins Depressive disorder, not elsewhere classified 09/27/2006 Hearing decreased Hyperlipidemia Hypothyroidism 2010 [place] on CPAP [facility] Peripheral vascular disease, unspecified (HCC) varicose [...] twice daily as needed (skin infection). omega 2-pjc-wbl-fish oil (FISH OIL) 100-160-1,000 mg cap Take [...] drainage, pharynx wi (more content not included)... [facility] 07-14-2023 History of Present illness Narrative CC: Henry Brock is a 67 year old female who [...] this brings her melyssa. 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 Interested in seeing Cardiology Rn at [facility]. Currently She is going to be having [...] with medication. Has great support from her advent family PAST MEDICAL HISTORY Diagnosis Date Abnormal glandular Papanicolaou smear of cervix Abn. Pap smear (cervix) Asymptomatic varicose veins Depressive disorder, not elsewhere classified 09/27/2006 Hearing decreased Hyperlipidemia Hypothyroidism 2010 [place] on CPAP DME [facility] Peripheral [...] twice daily as needed (skin infection). omega 4-evp-zmh-fish oil (FISH OIL) 100-160-1,000 mg cap Take [...] lb (55.3kg) SpO2 96% LMP 10/13/2006 Gen: A&OX3, NAD, non-toxic appearing HEENT: PERRLA, EOMs intact b/l, nares without drainage, pharynx without erythema, exudate, lesions, or drainage. Uvula midline. Neck: No LAD, no thyromegaly, no meningismus. CV: RRR, no murmur Lungs: CTA b/l, no wheezing Skin: No rashes, lesions, or wounds on exposed skin. Gait is slowed and antalgic No edema, normal pulses ASSESSMENT/PLAN: 1. Hypothyroidism, unspecified type - ICD9: 244.9, ICD10: E03.9 (primary diagnosis) - Instructed patient on importance of taking on an empty stomach either first thing in the morning or at bedtime. - continue current dose of Rosamond thyroid medication - T4 FREE/FREE THYROX - T3 FREE BLD - TSH BLD - ARMOUR THYROID 60 MG TABLET 2. Concentration deficit - ICD9: 799.51, ICD10: R41.840 rx refilled, consider stopping medication in the near future. She is aware of risk of SE with medication - DEXTROAMPHETAMINE-AMPHETAMINE 10 MG TABLET 3. Situational insomnia - ICD9: 307.41, ICD10: F51.09 rx refilled. stable - TRAZODONE 50 MG TABLET 4. Anxiety with depression - ICD9: 300.4, ICD10: F41.8 rx refilled, stable, continue prozac - TRAZODONE 50 MG TABLET 5. Mood disorder (HCC) - ICD9: 296.90, ICD10: F39 rx refilled, stable, continue prozac 6. Valgus deformity of both great toes - ICD9: 735.0, ICD10: M20.11, M20.12 F/u with surgeon for upcoming procedure. 7. Moderate tricuspid regurgitation by prior echocardiogram - ICD9: 397.0, ICD10: I07.1 F/u with Electric Motor Repairer and repeat echo in 1 year. Overall she is asymptomatic Shin Arias DO Return if no improvement. Follow up with Shin Arias DO. To ER if develops chest pain, shortness of breath. Discussed risks, benefits, alternatives, and potential side effects of medications. Patient/Guardian expressed understanding and agreed with the plan. See patient instructions. Shin Arias DO [address] [place] [address] documented in this encounter [facility] 07-07-2023 Miscellaneous Notes Pt. informed detailed [...] Shin Arias DO documented in this encounter [facility] 06-23-2023 Miscellaneous Notes The following approved medication requests have been transmitted electronically. Requested Prescriptions Signed Prescriptions Disp Refills dextroamphetamine-amphetamine (ADDERALL) 10 mg tablet 30 tablet 0 Sig: Take 0.5-1 tablets by mouth once daily for 30 days. Authorizing Provider: IVANA MITCHELL APRN.[facility] PDMP website checked and validated. All prescriptions [...] Mary Jo Rodriguez. documented in this encounter [facility] 05-04-2023 History of Present illness Narrative POPULATION HEALTH NAVIGATION OUTREACH Action/FYI Left vm Patient Identified by Name and : NO Outreach Outcome/Action Unable to reach patient: Left message MyChart message sent Did you use a PCP flex slot to schedule this appointment? No Reason for Outreach Care Gap or Scheduling/Wellness visits Payer: Payor: [employer] MEDICARE / Plan: [employer] HMO / Product Type: HMO / Care [...] 2023 12:04 PM documented in this encounter [facility] 04-11-2023 Miscellaneous Notes Patient has been [...] patient. Jamia Young documented in this encounter [facility] 02-20-2023 Miscellaneous Notes TC to patient [...] is asking it be sent to the [facility] in [place]. Pended order pharmacy has been updated. Please resend. Pharmacy verified in [facility] Patient has been identified by name and [...] (123 lb) Not applicable Please advise. Gayla Hernandez Pss documented in this encounter [facility] 01-26-2023 Miscellaneous Notes Patient given results and verbalized understanding of instructions given. Marjorie Cui Left message for patient to return call. Xochilt Thomson LPN ----- Message from Lida Cardenas APRN.TRADE SPECIALIST sent at 01/26/2023 7:21 AM EDT ----- [...] care provider or schedule a visit with [facility]. A test is not recommended to return to work/school when meeting the above criteria. Lida Cardenas APRN.TRADE SPECIALIST documented in this encounter [facility] 01-25-2023 History of Present illness Narrative [...] 1 tablet by mouth once daily. omega 4-dal-npg-fish oil (FISH OIL) 100-160-1,000 mg cap Take [...] COVID & INFLUENZA A/B NAAT, ROUTINE Chris Crawford MD documented in this encounter [facility] 12-26-2022 Miscellaneous Notes The following approved [...] advise. Lizzy Peck documented in this encounter [facility] 12-26-2022 History of Present illness Narrative [...] decreased Hyperlipidemia Hypothyroidism 2010 [place] on CPAP [facility] Peripheral vascular disease, unspecified (HCC) varicose [...] mouth once daily. 90 tablet 1 omega 1-hfh-zhb-fish oil (FISH OIL) 100-160-1,000 mg cap Take [...] Alivia Leyva PA-C documented in this encounter [facility] 11-25-2022 History of Present illness Narrative [...] of self injury. Continues to work at [employer], job that she enjoys related to the [...] decreased Hyperlipidemia Hypothyroidism 2010 [place] on CPAP [facility] Peripheral vascular disease, unspecified (HCC) varicose veins Sleep apnea CPAP Supraspinatus tendon tear 04/03/2012 right shoulder Vitamin B12 deficiency Vitamin D deficiency 10/30/2013 PAST SURGICAL HISTORY Procedure Laterality Date COLPOSCOPY CERVIX UPPER/ADJACENT VAGINA Colposcopy CORRECT BUNION,SIMPLE -18-12 Bunion, left DILATION & CURETTAGE DX&/THER NONOBSTETRIC [...] mouth once daily. 90 tablet 1 omega 9-wwr-jwz-fish oil (FISH OIL) 100-160-1,000 mg cap Take [...] Z86.73 40-minute appointment almost all spent in tmxp-mp-dieh counseling and education. Follow-up 4 weeks to see how fluoxetine and fluid restrictions are affecting sleep Alivia Leyva PA-C documented in this encounter [facility] 10-19-2022 History of Present illness Narrative CC: Henry Brock is a 67 year old female who presents to the office for follow up HPI: Seen in office 2 weeks ago as below Rash on right hand and skin changes around left great toe, using Mometasone ointment with benefit. Had this ointment at home. Wasn't getting better with triamcinolone cream given. 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 Did have some b/l [...] decreased Hyperlipidemia Hypothyroidism 2010 [place] on CPAP [facility] Peripheral vascular disease, unspecified (HCC) varicose [...] 1 tablet by mouth once daily. omega 7-tpz-peq-fish oil (FISH OIL) 100-160-1,000 mg cap Take [...] plan. See patient instructions. Shin Arias DO [address] [place] [address] documented in this encounter [facility] 10-04-2022 Miscellaneous Notes PDMP website checked [...] medication - must be call in. Corrine Chmabers Pss documented in this encounter [facility] 09-07-2022 Miscellaneous Notes Rec'd fax and [...] provided. This was not correct. Pharmacy is [phone]. PA already completed and denied. Tier exception is being reviewed. Will rec'd response via fax. The reference number for this is [id number]. This call took over 20 minutes. Patient calling said she needs formulary exception done for the Amour thyroid. Henry Brock Sawyer: [id number] - CATRACHITO help? Call us at Outcome Deniedtoday Request Reference Number: [id number]. ARMOUR THYRO TAB 90MG is denied for not meeting the prior authorization requirement(s). Details of this decision are in the notice attached below or have been faxed to you Henry Brock Sawyer: [id number] - CATRACHITO help? Call us at Status Sent to [facility] Rosamond Thyroid 90MG tablets Form [employer] Electronic Prior Authorization Form (2016 NCPDP) THE OFFICE CAN COMPLETE A PA. we have no pharmacy benefits on file. Will have to review via covermymeds.We do not have the ability to add meds to a formulary. Pt called in and reports office will need to call insurance phone # [phone] to get their Rosamond Thyroid added to insurance formulary. Pt reports she is almost out of medication. Prior Authorization Documentation Prior authorization requested for the following medication: Medication: Rosamond Thyroid Provider: Dr Arias Insurance Company Name: [facility] Medicare Insurance Company Phone number: [phone] Patient ID number: [id number] Pharmacy Name: [facility] Telephone number: [phone] documented in this encounter [facility] 08-10-2022 History of Present illness Narrative CC: Hnery Brock is a 66 year old female who [...] decreased Hyperlipidemia Hypothyroidism 2010 [place] on CPAP [facility] Peripheral vascular disease, unspecified (HCC) varicose [...] repair Current Outpatient Medications Medication Sig omega 7-xdk-wds-fish oil (FISH OIL) 100-160-1,000 mg cap Take [...] plan. See patient instructions. Shin Arias DO [address] [place] [address] documented in this encounter [facility] 08-09-2022 Miscellaneous Notes Appointment made message left on VM. Please schedule her an appt. I have 3 openings tomorrow or can see SPANNER OPERATOR as well Shin Arias DO Patient calling asking for appt today with PCP she has poison ismael rash and hands and feet and is spreading. Patient refuses to go to express care, aware SPANNER OPERATOR are out of office today. Please advise documented in this encounter [facility] 08-05-2022 Miscellaneous Notes Pt informed, verbalized [...] Shin Arias DO documented in this encounter [facility] 07-22-2022 Miscellaneous Notes Pt. informed via My Chart. Please inform patient that her PFTs and lung volumes were normal as below IMPRESSION: Spirometry is normal. There was not a significant bronchodilator response. The TLC, RV and RV/TLC are normal. Shin Arias DO documented in this encounter [facility] 07-21-2022 Miscellaneous Notes Sent [employer] message JazCloudianlori The following approved medication requests have been transmitted electronically. Requested Prescriptions Signed Prescriptions Disp Refills ARMOUR THYROID 90 mg tablet 30 tablet 0 Sig: Take 1 tablet by mouth once daily. Authorizing Provider: JOSSY GUSTAFSON APRN.TRADE SPECIALIST Pt calling office to request a 1 month supply of Rosamond thyroid to be sent to [facility] in [place]. Rx pending. Please review and advise. Neri Robles LPN documented in this encounter [facility] 07-20-2022 History of Present illness Narrative PULM FUNCTION SMARTBLOCK: Provider: Shin Arias DO Assisting Tech: ONEYDA Naranjo Spirometry w/BD: 1 LV - Box: 1 documented in this encounter [facility] 07-19-2022 History of Present illness Narrative CC: Henry Brokc is a 66 year old female who presents to the office for follow up HPI: Right ankle and foot pain, was told needs to wear a Boot then x-rays then likely brace for right ankle tendinitis, seen by Cardiology Rn, no surgery needed at this time. Going to have metal fillings removed from her mouth. Feels that this is affecting her health Mood, feels she is managing well with being off the Prozac medication, doesn't feel she needs anything at this time. Has good foundation with advent and advent friends as well. Hypothyroidism, taking her armour thyroid medication, cost is expensive, doesn't want to be on synthetic medication. Hair is thinning, + chronic fatigue + shortness of breath, mostly at advent when she is trying to sing or [...] decreased Hyperlipidemia Hypothyroidism 2010 [place] on CPAP [facility] Peripheral vascular disease, unspecified (HCC) varicose [...] repair Current Outpatient Medications Medication Sig omega 6-omr-iuk-fish oil (FISH OIL) 100-160-1,000 mg cap Take [...] ICD9: 727.06, ICD10: M77.51 - f/u with Cardiology Rn 5. SOB (shortness of breath) - ICD9: [...] See patient instructions. Shin Arias DO [address] [place] [address] documented in this encounter [facility] 06-21-2022 Miscellaneous Notes Pt informed, verbalized understanding Jaz Solis Yes, please inform patient that [facility] Shin Arias DO Patient reports Baljinder is out of adderall 10 mg. Reports she has 4 pills left. Asking if provider would send Rx to [facility]? Pended. documented in this encounter [facility] 06-20-2022 Miscellaneous Notes PDMP website checked [...] Angela Buchanan Pss documented in this encounter [facility] 06-09-2022 Miscellaneous Notes Status on below [...] Rosamaria Montaño LPN documented in this encounter [facility] 06-08-2022 Miscellaneous Notes Patient called and [...] within 2 weeks -- get opinion of prison classification counselor. Thank you, Jossy Gustafson APRN.TRADE SPECIALIST Patient calls to request results of right ankle x-ray. Reviewed x-ray results and OV note from 06/06/2022. Patient asking if any further instructions from provider. Patient aware provider out of office today and will return tomorrow. Please review and advise, Genie Calles RN documented in this encounter [facility] 06-06-2022 Instructions Cydney Mahmood LPN - [...] usual activities immediately. documented in this encounter [facility] 06-06-2022 History of Present illness Narrative Chief Complaint Patient presents with: rt ankle swelling: Been bothersome for a while now worse swelling and bothersome HPI Henry Brock is a 66 year old female who [...] hesitant and worried about going back to prison classification counselor for repeat surgery on other foot. Past medical history, appointments, medications, allergies reviewed. Previous Medical History PAST MEDICAL HISTORY Diagnosis Date Abnormal glandular Papanicolaou smear of cervix Abn. Pap smear (cervix) Asymptomatic varicose veins Depressive disorder, not elsewhere classified 09/27/2006 Hearing decreased Hyperlipidemia Hypothyroidism 2010 HERNAN on CPAP [facility] Peripheral vascular disease, unspecified (HCC) varicose [...] within 1-2 weeks, may need to see prison classification counselor about bunion correction. Pt agrees. Has recommendation of which prison classification counselor she would like to go to if [...] Patient agreeable to treatment plan. Jossy Chahal APRN.TRADE SPECIALIST [address] [place] [address] documented in this encounter [facility] 05-19-2022 History of Present illness Narrative [...] Hypothyroidism 2010 HERNAN on CPAP [facility] Peripheral vascular disease, unspecified (HCC) varicose veins [...] Alivia Leyva PA-C documented in this encounter [facility] 05-17-2022 Miscellaneous Notes Patient has been [...] Jazlyn Marquez RN documented in this encounter [facility] 05-11-2022 Miscellaneous Notes PDMP website checked and validated. All prescriptions have been APPROPRIATELY filled. No suspicious activity was identified. 05/11/2022 by Jossy Chahal APRN.TRADE SPECIALIST The following approved medication requests have been [...] Lupe Garcia Pss documented in this encounter [facility] 05-11-2022 Miscellaneous Notes Spoke with pt [...] Shin Arias DO documented in this encounter [facility] 05-10-2022 History of Present illness Narrative 66 year old female with hx anxiety, depression, ADD, hypothyroidism, HERNAN, stroke r/t right cerebellar artery, VA stenosis with c/o episode hot, weak, sick to stomach . Noel like when she had her stroke. 9:30a Giving an infirm friend a bath: she was standing, Tawana was bent over washing under belly and suddenly felt sick to stomach, weak, drove home. Episode came up from toes, hot all over, nausea, weak, not syncopal but somewhat lightheaded. No focal symptoms. Noel somewhat like sx when she had her [...] normal carotid flow. 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 Had recent surgery for cataracts at [facility] Is recently fully retired, taking care of 2 granddaughters 2 days a week. Is looking forward hopefully to be able to travel a little eventually but unsure if will be able due to financials. Has tapered off her Prozac and feels overall her mood is stable. Relies on her [employer] and friends for support. 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 Need for follow up with Cardiology Rn if exercises don't help symptoms Shin Arias DO Return if no improvement. Follow up with Shin Arias DO. To ER if develops chest pain, shortness of breath Discussed risks, benefits, alternatives, and potential side effects of medications. Patient/Guardian expressed understanding and agreed with the plan. See patient instructions. Shin Arias DO [address] [place] [address] documented in this encounter [facility] 03-16-2022 Miscellaneous Notes PDMP website checked [...] Lupe Garcia Pss documented in this encounter [facility] 01-21-2022 Instructions Shin Arias DO - 01/21/2022 12:31 PM EDT Vitamin B complex in the AM- liquid or chewable (with at least 2000 mcg or more of vitamin B12 within it) documented in this encounter [facility] 01-21-2022 History of Present illness Narrative CC: Henry Brock is a 66 year old female who [...] her mood is stable. Relies on her [employer] and friends for support. Hypothyroidism, + fatigue, she is unsure if this is related to her thyroid dx or her HERNAN and not tolerating masks well. PAST MEDICAL HISTORY Diagnosis Date Abnormal glandular Papanicolaou smear of cervix Abn. Pap smear (cervix) Asymptomatic varicose veins Depressive disorder, not elsewhere classified 09/27/2006 Hearing decreased Hyperlipidemia Hypothyroidism 2010 HERNAN on CPAP [facility] Peripheral vascular disease, unspecified (HCC) varicose [...] agreed with the plan. Shin Arias DO [address] [place] [address] documented in this encounter [facility] 01-19-2022 Miscellaneous Notes The following approved medication requests have been transmitted electronically. Requested Prescriptions Signed Prescriptions Disp Refills dextroamphetamine-amphetamine (ADDERALL) 10 mg tablet 30 tablet 0 Sig: Take 0.5-1 tablets by mouth once daily for 30 days. Authorizing Provider: IVANA MITCHELL APRN.ARA PDMP website checked and validated. All prescriptions [...] Angela Buchanan Pss documented in this encounter [facility] 12-31-2021 Miscellaneous Notes Patient has been [...] Last refill: 05/2021 documented in this encounter [facility] 11-25-2021 Miscellaneous Notes The following approved [...] Gayla Hernandez Pss documented in this encounter [facility] 10-23-2021 History of Present illness Narrative CC: Henry Brock is a 66 year old female who presents to the office for follow up HPI: Mood, overall feels the Prozac and prn trazodone for insomnia is helping symptoms stay stable. She is still enjoying watching her granddaughters and advent activities. Hypothyroidism, taking armour thyroid hormone supplement [...] decreased Hyperlipidemia Hypothyroidism 2010 HERNAN on CPAP [facility] Peripheral vascular disease, unspecified (HCC) varicose [...] after fracture, right PAST SURGICAL HISTORY OF 2/14/14 arthroscopy with open rotator cuff repair Current [...] See patient instructions. Shin Arias DO [address] [place] [address] documented in this encounter [facility] 10-22-2021 Instructions Shin Arias DO - 10/22/2021 4:46 PM EDT Change your Marley to Zyrtec 10 mg or to Xyzal 5-10 mg a day for allergy symptoms Eye lubricating drops or allergy eye drops 1-2 times a day to help eye symptoms. documented in this encounter [facility] 10-08-2021 Miscellaneous Notes PDMP website checked [...] Jo Pitt [employer] documented in this encounter [facility] 09-09-2021 Miscellaneous Notes PDMP website checked [...] advise. Sera PECK documented in this encounter [facility] 08-09-2021 Miscellaneous Notes The following approved medication requests have been transmitted electronically. Signed Prescriptions Disp Refills ARMOUR THYROID 90 mg 90 tablet 3 Sig: Take 1 tablet by mouth daily before breakfast. RADHA: Yes Authorizing Provider: JOSSY CHAHAL APRN.TRADE SPECIALIST documented in this encounter [facility] 07-29-2021 History of Present illness Narrative Chief Complaint Patient presents with Right Foot - Pain C/o bunion on rt foot, hx of lft foot bunion sx in 2011 and had a bad time with it, has issues with it still, intermediate frame tender problem, has numbness in the toes and has pn in the foot and up into the ankle, also has a hammertoe next to it, tried one remedies w/ some pn relief, has orthotics and wears good shoes w/ arch support Left Foot - Pain Henry Brock is a 65 y.o. female presenting with [...] for dizziness and seizures. Physical Exam General:Henry Brock is seated comfortably in the examination room. [...] this diagnosis. I did discuss with Henry Brock the biomechanics of her foot and how this can contribute to abnormal pressure uptake and eventual pain. The potential for further pain as well as short term and half-way results of neglecting the mechanics of this. [...] to address this. documented in this encounter [facility] 06-30-2021 Miscellaneous Notes Pt notified via [employer] message Jaz Addison Ma The following approved medication requests have been transmitted electronically. Signed Prescriptions Disp Refills FLUoxetine (PROZAC) 20 mg capsule 90 capsule 1 Sig: Take 1 capsule by mouth once daily. RADHA: No Authorizing Provider: SHIN ARIAS DO Please load rx's needed Shin Arias DO PT called and wanted her medication to be sent to [facility] in [place] instead of [employer]. documented in this encounter [facility] 04-22-2021 History of Present illness Narrative Radiology Service Progress Note PATIENT NAME: Henry Brock DATE OF SERVICE: April 22, 2021 TIME: 10:57 AM PATIENT IDENTITY VERIFICATION COMPLETED USING TWO (2) IDENTIFIERS: Name and Date of confirmed by patient verbally. FALL SCREENING: Has the patient had 2 falls in the last year or 1 fall with injury or currently using an Ambulatory Assistive Device (Walker, Cane, Wheelchair, Crutches, etc.)? No PATIENT GENDER DATA: Female. status: : No status: NO. PATIENT RELEVANT IMPLANT DATA REVIEWED: Not Applicable RADIOLOGY DEPARTMENT: General X-ray: Exam(s) Completed: Upper Extremity X-Ray(s): Shoulder, AP / TRUE AP / AXILLARY right PERIPHERAL IV DATA: Not applicable SIGNED BY: RT Bill(R) April 22, 2021 10:57 AM documented in this encounter [facility] 11-04-2013 History of Past i llness [...] of this encounter (statuses as of 08/09/2021) [facility] of [facility] Narrative* Problem [...] of this encounter (statuses as of 09/09/2021) [facility] N[facility]ative* Problem [...] of this encounter (statuses as of 10/08/2021) [facility]* Problem [...] of this encounter (statuses as of 10/16/2021) [facility]* Problem [...] of this encounter (statuses as of 10/23/2021) [facility]* Problem [...] of this encounter (statuses as of 11/15/2021) [facility]* Problem [...] of this encounter (statuses as of 11/25/2021) [facility]* Problem [...] of this encounter (statuses as of 12/31/2021) [facility]* Problem [...] of this encounter (statuses as of 01/19/2022) [facility]* Problem [...] of this encounter (statuses as of 01/21/2022) [facility]* Problem [...] of this encounter (statuses as of 03/16/2022) [facility]* Problem [...] of this encounter (statuses as of 04/19/2022) [facility]* Problem [...] of this encounter (statuses as of 05/17/2022) [facility]* Problem [...] of this encounter (statuses as of 05/18/2022) [facility]* Problem [...] of this encounter (statuses as of 05/20/2022) [facility]* Problem [...] of this encounter (statuses as of 05/21/2022) [facility] Problem [...] of this encounter (statuses as of 06/06/2022) [facility]* Problem [...] of this encounter (statuses as of 06/08/2022) [facility]* Problem [...] of this encounter (statuses as of 06/09/2022) [facility] Problem [...] of this encounter (statuses as of 06/21/2022) [facility] Problem [...] of this encounter (statuses as of 06/22/2022) [facility] Problem [...] of this encounter (statuses as of 07/20/2022) [facility] Problem [...] of this encounter (statuses as of 07/20/2022) [facility] Problem [...] of this encounter (statuses as of 07/21/2022) [facility] Problem [...] of this encounter (statuses as of 07/22/2022) [facility] Problem [...] of this encounter (statuses as of 08/05/2022) [facility] Problem [...] of this encounter (statuses as of 08/10/2022) [facility] Problem [...] of this encounter (statuses as of 08/10/2022) [facility] Problem [...] of this encounter (statuses as of 09/07/2022) [facility] Problem [...] of this encounter (statuses as of 10/19/2022) [facility] Problem [...] of this encounter (statuses as of 11/26/2022) [facility] Problem [...] of this encounter (statuses as of 12/26/2022) [facility] Problem [...] of this encounter (statuses as of 12/26/2022) [facility] Problem [...] of this encounter (statuses as of 01/26/2023) [facility] Problem [...] of this encounter (statuses as of 01/27/2023) [facility] Problem [...] of this encounter (statuses as of 02/21/2023) [facility] Problem [...] of this encounter (statuses as of 04/13/2023) [facility] Problem [...] of this encounter (statuses as of 05/05/2023) [facility] Problem [...] of this encounter (statuses as of 05/22/2023) [facility] Problem [...] of this encounter (statuses as of 06/23/2023) [facility] Problem [...] of this encounter (statuses as of 07/07/2023) [facility] Problem [...] of this encounter (statuses as of 07/15/2023) [facility] Problem [...] of this encounter (statuses as of 08/05/2023) [facility]* Problem [...] of this encounter (statuses as of 07/15[facility]2023) [facility], unspecified type [facility] Diagnosis Bilateral foot pain- Primary Pain in limb Bilateral foot pain Pain in limb Bilateral foot pain Pain in limb [facility] Concentration deficit Attention or concentration deficit [facility] Diagnosis Anxiety with depression Mood disorder (HCC) Unspecified episodic mood disorder [facility] Diagnosis Anxiety with depression- Primary Mood disorder (HCC) Unspecified episodic mood disorder Concentration deficit Attention or concentration deficit Hypothyroidism, unspecified type Vitamin B12 deficiency Other B-complex deficiencies Vitamin D deficiency Unspecified vitamin D deficiency Fatigue, unspecified type Dyslipidemia Other and unspecified hyperlipidemia [facility] Diagnosis Encounter for screening mammogram for breast cancer [facility] Diagnosis Concentration deficit Attention or concentration deficit [facility] Diagnosis Situational insomnia Transient disorder of initiating or maintaining sleep Anxiety with depression [facility] Diagnosis Concentration deficit Attention or concentration deficit [facility] Diagnosis Age-related cataract of both eyes, unspecified age-related cataract type- Primary Double vision Diplopia Vitamin B12 deficiency Other B-complex deficiencies Vitamin D deficiency Unspecified vitamin D deficiency Hypothyroidism, unspecified type Dyslipidemia Other and unspecified hyperlipidemia Hyperglycemia Other abnormal glucose Anxiety with depression [facility] Diagnosis Concentration deficit Attention or concentration deficit [facility] Diagnosis Vitamin B12 deficiency- Primary Other B-complex deficiencies Vitamin D deficiency Unspecified vitamin D deficiency Dyslipidemia Other and unspecified hyperlipidemia Hypothyroidism, unspecified type Elevated alkaline phosphatase level Other nonspecific abnormal serum enzyme levels Chronic right shoulder pain Pain in joint, shoulder region Chronic pain of right ankle documented [facility] noteNo assessment information availableW[facility] Work Phone: Evaluation note* Diagnosis Elevated alkaline phosphatase level- Primary Other nonspecific abnormal serum enzyme levels [facility] Diagnosis Vasovagal symptom- Primary Elevated alkaline [...] left vertebral artery [facility] Diagnosis Hypothyroidism, unspecified type [facility] Diagnosis Flu-like symptoms- Primary Other general symptoms Elevated alkaline phosphatase level Other nonspecific abnormal serum enzyme levels [facility] Diagnosis Right ankle swelling- Primary Effusion of ankle and foot joint Encounter for screening for osteoporosis Special screening for osteoporosis Encounter for screening mammogram for malignant neoplasm of breast Other screening mammogram [facility] Diagnosis Near syncope- Primary Syncope and collapse [facility] Diagnosis Concentration deficit Attention or concentration deficit [facility] Diagnosis Dyslipidemia- Primary Other and unspecified hyperlipidemia Hair thinning Alopecia, unspecified Fatigue, unspecified type Tendinitis of right ankle Tenosynovitis of foot and ankle SOB (shortness of breath) Shortness of breath Hypothyroidism, unspecified type Screening for colon cancer Special screening for malignant neoplasms, colon Concentration deficit Attention or concentration deficit Anxiety with depression [facility] Diagnosis SOB (shortness of breath) Shortness of breath [facility] Diagnosis SOB (shortness of breath) Shortness of breath [facility] Dermatitis contact- Primary Hypothyroidism, unspecified type [facility] Diagnosis Elevated ferritin- Primary Other abnormal blood chemistry Rash and nonspecific skin eruption Rash and other nonspecific skin eruption Elevated alkaline phosphatase level Other nonspecific abnormal serum enzyme levels Dermatitis contact Hypothyroidism, unspecified type Dyslipidemia Other and unspecified hyperlipidemia Mood disorder (HCC) Unspecified episodic mood disorder Fatigue, unspecified type Hyperglycemia Other abnormal glucose [facility] Diagnosis Adjustment insomnia- Primary Transient disorder of initiating or maintaining sleep Anxiety with depression 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), and cerebral infarction without residual deficits [facility] Diagnosis Concentration deficit Attention or concentration deficit [facility] Diagnosis Situational insomnia Transient disorder of initiating or maintaining sleep Anxiety with depression [facility] Diagnosis Sore throat- Primary Acute pharyngitis Influenza-like illness Influenza with other respiratory manifestations [facility] Diagnosis Concentration deficit Attention or concentration deficit [facility] Diagnosis Encounter for screening mammogram for breast cancer documented in this encounter [facility] note* Diagnosis Concentration deficit Attention or concentration deficit documented in this encounter [facility] note* Diagnosis HERNAN (obstructive sleep apnea)- Primary Obstructive sleep apnea (adult) (pediatric) Hypothyroidism, unspecified type Gait disorder Abnormality of gait Anxiety with depression Mood disorder (HCC) Unspecified episodic mood disorder S/P foot surgery, right Hallux valgus, bilateral documented in this encounter [facility] note* Diagnosis HERNAN (obstructive sleep apnea)- Primary Obstructive sleep apnea (adult) (pediatric) [facility] Diagnosis Concentration deficit Attention or concentration deficit [facility] Diagnosis Hypothyroidism, unspecified type- Primary Concentration deficit Attention or concentration deficit documented in this encounter [facility]* Diagnosis Hypothyroidism, unspecified type- Primary Screening for diabetes mellitus Fatigue, unspecified type [facility] Diagnosis Gait disorder- Primary Abnormality of gait documented in this encounter [facility] note* Diagnosis Right ankle swelling Effusion of ankle and foot joint Encounter for screening for osteoporosis Special screening for osteoporosis documented in this encounter [facility] note* Diagnosis Acute pain of right shoulder documented in this encounter [facility] note* Diagnosis CARPENTER (dyspnea on exertion)- Primary Other dyspnea and respiratory abnormality Hypothyroidism, unspecified type Palpitations Moderate tricuspid regurgitation by prior echocardiography Fatigue, unspecified type documented in this encounter [facility]* Diagnosis Hypothyroidism, unspecified type- Primary Concentration deficit Attention or concentration deficit Situational insomnia Transient disorder of initiating or maintaining sleep Anxiety with depression Mood disorder (HCC) Unspecified episodic mood disorder Valgus deformity of both great toes Moderate tricuspid regurgitation by prior echocardiogram Diseases of tricuspid valve [facility] this [facility]* Diagnosis Adjustment insomnia Transient disorder of initiating or maintaining sleep Anxiety with depression documented in this encounter [facility]* Diagnosis Situational insomnia Transient disorder of initiating or maintaining sleep Anxiety with depression documented in this encounter [facility]* Diagnosis Concentration deficit Attention or concentration deficit documented in this encounter [facility]* Diagnosis Encounter for screening mammogram for breast cancer [facility] this [facility]* Diagnosis Hypothyroidism, unspecified type [facility] Diagnosis CARPENTER (dyspnea on exertion)- Primary Other dyspnea and respiratory abnormality Moderate tricuspid regurgitation by prior echocardiography Anxiety with depression Fatigue, unspecified type Hypothyroidism, unspecified type HERNAN (obstructive sleep apnea) Obstructive sleep apnea (adult) (pediatric) 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), and cerebral infarction without residual deficits Vitamin B12 deficiency Other B-complex deficiencies Dry eye syndrome of both eyes Hyperglycemia Other abnormal glucose Dyslipidemia Other and unspecified hyperlipidemia Vitamin D deficiency Unspecified vitamin D deficiency documented in this encounter [facility] for referral (narrative)* Diagnostic Procedure Only (Routine) - Pending Review Specialty Diagnoses / Procedures Referred By Contac t Referred To Contact BR IMAGING Diagnoses Encounter for screening mammogram for breast cancer Procedures MANDO SCREENING SCREENING MAMMOGRAPHY BI 2-VIEW BREAST INC CAD Shin Arias DO [address] [place] [address] Br Imaging [address] [facility] [place] [address] Referral ID Status Reason Start Date Expiration Date Visits Requested Visits Authorized [id number] Pending Review Auto-Generat ed Referral 11/10/2021 12/10/2022 1 1 [facility] for referral (narrative)* Diagnostic Procedure Only (Routine) - Pending Review Specialty Diagnoses / Procedures [facility] To [facility] IMAG[facility] Diagnoses Elevated alkaline phosphatase level Procedures US ABD RT UPPER QUADRANT US ABDOMINAL REAL TIME W/IMAGE LIMITED Shin Arias DO [address] [place] [address] Us Imaging Referral ID Status Reason Start Date Expiration Date Visits Requested Visits Authorized [id number] Pending Review Auto-Generat ed Referral 2 06/02/2023 1 1 [facility] for referral (narrative)* Diagnostic Procedure Only (Routine) - Closed Specialty Diagnoses / Procedures Referred By Contac t Referred To Contact XR IMAGING Diagnoses Right ankle swelling Procedures XR ANKLE GENERAL 3V AP/LAT/OBL RIGHT RADEX ANKLE COMPLETE MINIMUM 3 VIEWS Jossy Gustafson, 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 SPECIALIST [address] [place] [address] Xr Imaging Referral ID Status Reason Start Date Expiration Date V isits Requested Visits Authorized [id number] Closed Auto-Generate d Referral 06/06/2022 07/06/2023 1 1 * Diagnostic Procedure Only (Routine) - Pending Review Specialty Diagnoses / Procedures Referred By Cassie t Referred To Contact BR IMAGING Diagnoses Encounter for screening mammogram for malignant neoplasm of breast Procedures MANDO SCREENING SCREENING MAMMOGRAPHY BI 2-VIEW BREAST INC CAD Jossy Gustafson APRN.TRADE SPECIALIST [address] [place] [address] Br Imaging [address] [place] [address] Referral ID Status Reason Start Date Expiration Date Visits Requested Visits Authorized [id number] Pending Review Auto-Generat ed Referral 06/06/2022 07/06/2023 1 1 [facility] for referral (narrative)* Outpatient Procedure (Routine) - Pending Review Specialty Diagnoses / Procedures Referred By Cassie t Referred To Contact [facility] Diagnoses Near syncope Procedures STRESS ECHO TREADMILL ECHO TTHRC R-T 2D W/WO M-MODE COMPLETE REST&ST Alivia Leyva PA-C [address] [place] [address] [facility] [place] [address] [place] [address] Referral ID Status Reason Start Date Expiration Date Visits Requested Visits Authorized [id number] Pending Review Auto-Generat ed Referral 05/19/2022 05/19/2023 1 1 [facility] Outpatient Procedure (Routine) - Authorized Specialty Diagnoses / Procedures Referred By Kiaraac t Referred To Contact [facility] Diagnoses SOB (shortness of breath) Procedures LUNG VOLUMES Shin Arias DO [address] [place] [address] [facility] [place] [address] [place] [id number] Referral ID Status Reason Start Date Expiration Date Visits Requested Visits Authorized [id number] Authorized Auto-Generat ed Referral 07/19/2022 08/18/2023 1 1 * Outpatient Procedure (Routine) - Authorized Specialty Diagnoses / Procedures Referred By Contac t Referred To Contact [facility] Diagnoses SOB (shortness of breath) Procedures SPIROMETRY - BASELINE AND POST DILATOR BRNCDILAT RSPSE SPMTRY PRE&POST-BRNCDILAT ADMN Shin Arias DO [address] [place] [address] [facility] [place] [address] [place] [id number] Referral ID Status Reason Start Date Expiration Date Visits Requested Visits Authorized [id number] Authorized Auto-Generat ed Referral 07/19/2022 08/18/2023 1 1 [facility] for referral (narrative)* Diagnostic Procedure Only (Routine) - Pending Review Specialty Diagnoses / Procedures Referred By Cassie t Referred To Contact BR IMAGING Diagnoses Encounter for screening mammogram for breast cancer Procedures MANDO SCREENING SCREENING MAMMOGRAPHY BI 2-VIEW BREAST INC CAD Shin Arias DO [address] [place] [address] Br Imaging [address] [place] [phone] Referral ID Status Reason Start Date Expiration Date Visits Requested Visits Authorized [id number] Pending Review Auto-Generat ed Referral 05/17/2023 06/15/2024 1 1 [facility] for referral (narrative)* Diagnostic Procedure Only (Routine) - Closed Specialty Diagnoses / Procedures Referred By Contac t Referred To Contact XR IMAGING Diagnoses Right ankle swelling Procedures XR ANKLE GENERAL 3V AP/LAT/OBL RIGHT RADEX ANKLE COMPLETE MINIMUM 3 VIEWS Jossy Gustafson APRN.CNP [address] [place] [address] [place] [address] Referral ID Status Reason Start Date Expiration Date V isits Requested Visits Authorized [id number] Closed Auto-Generate d Referral 06/06/2022 07/06/2023 1 1 [facility] for referral (narrative)* Diagnostic Procedure Only (Routine) - Closed Specialty Diagnoses / Procedures Referred By Kiaraac t Referred To Contact XR IMAGING Diagnoses Acute pain of right shoulder Procedures XR SHOULDER GENERAL 3V OR MORE AP/TRUE AP/OTHER RIGHT X-RAY SHOULDER COMPLET MIN 2 VIEWS Lázaro Saunders MD [address] [place] [address] [place] [address] Referral ID Status Reason Start Date Expiration Date V isits Requested Visits Authorized [id number] Closed Auto-Generate d Referral 04/22/2021 05/22/2022 1 1 [facility] for referral (narrative)* Outpatient Procedure (Routine) - New Request Specialty Diagnoses / Procedures Referred By Cassie t Referred To Contact [facility] Diagnoses CARPENTER (dyspnea on exertion) Palpitations Moderate tricuspid regurgitation by prior echocardiography Procedures ECHO ECHO TTHRC R-T 2D W/WOM-MODE COMPL SPEC&COLR D Shin Arias DO [address] [place] [address] [facility] [place] [address] [place] [address] Referral ID Status Reason Start Date Expiration Date Visits Requested Visits Authorized [id number] New Request Auto-Generat ed Referral 07/20/2024 02/19/2025 1 1 [facility] for referral (narrative)* Diagnostic Procedure Only (Routine) - New Request Specialty Diagnoses / Procedures Referred By Cassie t Referred To Contact BR IMAGING Diagnoses Encounter for screening mammogram for breast cancer Procedures MANDO SCREENING W LONNIE SCREENING DIGITAL BREAST TOMOSYNTHESIS BI SCREENING MAMMOGRAPHY BI 2-VIEW BREAST INC CAD Shin Arias DO [address] [place] [address] [facility] Imaging [address] [place] [address] Referral ID Status Reason Start Date Expiration Date Visits Requested Visits Authorized [id number] New Request Auto-Generat ed Referral 04/17/2024 05/17/2025 1 1 [facility] for referral (narrative)* Outpatient Procedure (Routine) - Authorized Specialty Diagnoses / Procedures Referred By Contlilliam t Referred To Contact [facility] [place] Diagnoses CARPENTER (dyspnea on exertion) Moderate tricuspid regurgitation by prior echocardiography Procedures ECHO ECHO TTHRC R-T 2D W/WOM-MODE COMPL SPEC&COLR D Shin Arias DO [address] [place] [address] [employer] [facility] [employer] [facility] [place] [address] [place] [address] Referral ID Status Reason Start Date Expiration Date Visits Requested Visits Authorized [id number] Authorized Auto-Generat ed Referral 07/01/2024 05/31/2025 1 1 * Outpatient Procedure (Routine) - New Request Specialty Diagnoses / Procedures Referred By Contlilliam payne Referred To Contact [facility] [place] Diagnoses CARPENTER (dyspnea on exertion) Moderate tricuspid regurgitation by prior echocardiography Procedures ECG COMPLETE ECG ROUTINE ECG W/LEAST 12 LDS W/I&R Shin Arias DO [address] [place] [address] [facility] [address] [address] Referral ID Status Reason Start Date Expiration Date Visits Requested Visits Authorized [id number] New Request Auto-Generat ed Referral 05/31/2024 05/31/2025 1 1 [facility] for visit Narrative* Diagnostic Procedure Only (Routine) - Closed Specialty Diagnoses / Procedures Referred By Contac t Referred To Contact XR IMAGING Diagnoses Right ankle swelling Procedures XR ANKLE GENERAL 3V AP/LAT/OBL RIGHT RADEX ANKLE COMPLETE MINIMUM 3 VIEWS Jossy Gustafson APRN.TRADE SPECIALIST [address] [place] [address] [place] [address] Referral ID Status Reason Start Date Expiration Date V isits Requested Visits Authorized [id number] Closed Auto-Generate d Referral 06/06/2022 07/06/2023 1 1 [facility] for visit Narrative* Diagnostic Procedure Only (Routine) - Closed Specialty Diagnoses / Procedures Referred By Contac t Referred To Contact XR IMAGING Diagnoses Acute pain of right shoulder Procedures XR SHOULDER GENERAL 3V OR MORE AP/TRUE AP/OTHER RIGHT X-RAY SHOULDER COMPLET MIN 2 VIEWS Lázaro Saunders MD [address] [place] [address] [place] [address] Referral ID Status Reason Start Date Expiration Date V isits Requested Visits Authorized [id number] Closed Auto-Generate d Referral 04/22/2021 05/22/2022 1 1 [facility] Summary Purpose Family History No Family History Records Found Relationship Condition Age at Onset Recorded Date/T claus father Malignant neoplasm Unknown mother Hypertension Unknown grandfather Cardiac disease Unknown sister Malignant neoplasm Unknown Advance Directives No Advanced Directives Records FoundDocuments on File Type Date 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 [address] [place] [address] Referral ID Status Reason Start Date Expiration Date V isits Requested Visits Authorized [id number] New Request 07/29/2021 08/23/2022 1 1 Specialty Diagnoses / Procedures Referred By Contac t Referred To Contact Diagnoses Bilateral foot pain Procedures XR FOOT LEFT 3 VIEWS Athao, Bairon Lewis, KULDEEP [address] [place] [address] Referral ID Status Reason Start Date Expiration Date V isits Requested Visits Authorized [id number] New Request 07/29/2021 08/23/2022 1 1 Specialty Diagnoses / Procedures Referred By Contac t Referred To Contact Ophthalmology Diagnoses Age-related cataract of both eyes, unspecified age-related cataract type Double vision Procedures CONSULT TO OPHTHALMOLOGY OFFICE/OUTPATIENT NEW HIGH MDM 60-74 MINUTES Shin Arias, [address] [place] [address] Referral ID Status Reason Start Date Expiration Date Visits Requested Visits Authorized [id number] Pending Review PCP Requested Referral 01/21/2022 01/21/2023 1 1 Health Concerns Infection Onset Date Last Indicated Resolved Time COVID-19 Confirmed 01/25/2023 01/25/2023 Infection Onset Date Last Indicated Resolved Time COVID-19 Confirmed 01/25/2023 01/25/2023 3 8:51 PM EDT Additional Source Comments INFORMATION SOURCE (unrecogn ized section and content) DATE CREATED AUTHOR 11/02/2017 [facility] DATE CREATED AUTHOR AUTHOR'S ORGANIZ ATION 08/21/2021 [facility] DATE CREATED AUTHOR AUTHOR'S ORGANIZ ATION 06/04/2024 [facility] DATE CREATED AUTHOR AUTHOR'S ORGANIZ ATION 07/13/2024 [facility] Source Comments (unrecognize d section and content) In the event this informatio n is protected by the Federal Confidentiality of Alcohol and Drug Abuse Patient Records regulations: The Federal rules restrict any use of the information to criminally investigate or prosecute any alcohol or drug abuse patient.[facility] event this information is protected by the Federal Confidentiality of Alcohol and Drug Abuse Patient Records regulations: The Federal rules restrict any use of the information to criminally investigate or prosecute any alcohol or drug abuse patient.[facility] the event this information is protected by the Federal Confidentiality of Alcohol and Drug Abuse Patient Records regulations: The Federal rules restrict any use of the information to criminally investigate or prosecute any alcohol or drug abuse patient.[facility] the event this information is protected by the Federal Confidentiality of Alcohol and Drug Abuse Patient Records regulations: The Federal rules restrict any use of the information to criminally investigate or prosecute any alcohol or drug abuse patient.[facility] the event this information is protected by the Federal Confidentiality of Alcohol and Drug Abuse Patient Records regulations: The Federal rules restrict any use of the information to criminally investigate or prosecute any alcohol or drug abuse patient.[facility] the event this information is protected by the Federal Confidentiality of Alcohol and Drug Abuse Patient Records regulations: The Federal rules restrict any use of the information to criminally investigate or prosecute any alcohol or drug abuse patient.[facility] the event this information is protected by the Federal Confidentiality of Alcohol and Drug Abuse Patient Records regulations: The Federal rules restrict any use of the information to criminally investigate or prosecute any alcohol or drug abuse patient.[facility] the event this information is protected by the Federal Confidentiality of Alcohol and Drug Abuse Patient Records regulations: The Federal rules restrict any use of the information to criminally investigate or prosecute any alcohol or drug abuse patient.[facility] the event this information is protected by the Federal Confidentiality of Alcohol and Drug Abuse Patient Records regulations: The Federal rules restrict any use of the information to criminally investigate or prosecute any alcohol or drug abuse patient.[facility] the event this information is protected by the Federal Confidentiality of Alcohol and Drug Abuse Patient Records regulations: The Federal rules restrict any use of the information to criminally investigate or prosecute any alcohol or drug abuse patient.[facility] the event this information is protected by the Federal Confidentiality of Alcohol and Drug Abuse Patient Records regulations: The Federal rules restrict any use of the information to criminally investigate or prosecute any alcohol or drug abuse patient.[facility] the event this information is protected by the Federal Confidentiality of Alcohol and Drug Abuse Patient Records regulations: The Federal rules restrict any use of the information to criminally investigate or prosecute any alcohol or drug abuse patient.[facility] the event this information is protected by the Federal Confidentiality of Alcohol and Drug Abuse Patient Records regulations: The Federal rules restrict any use of the information to criminally investigate or prosecute any alcohol or drug abuse patient.[facility] the event this information is protected by the Federal Confidentiality of Alcohol and Drug Abuse Patient Records regulations: The Federal rules restrict any use of the information to criminally investigate or prosecute any alcohol or drug abuse patient.[facility] the event this information is protected by the Federal Confidentiality of Alcohol and Drug Abuse Patient Records regulations: The Federal rules restrict any use of the information to criminally investigate or prosecute any alcohol or drug abuse patient.[facility] the event this information is protected by the Federal Confidentiality of Alcohol and Drug Abuse Patient Records regulations: The Federal rules restrict any use of the information to criminally investigate or prosecute any alcohol or drug abuse patient.[facility] the event this information is protected by the Federal Confidentiality of Alcohol and Drug Abuse Patient Records regulations: The Federal rules restrict any use of the information to criminally investigate or prosecute any alcohol or drug abuse patient.[facility] the event this information is protected by the Federal Confidentiality of Alcohol and Drug Abuse Patient Records regulations: The Federal rules restrict any use of the information to criminally investigate or prosecute any alcohol or drug abuse patient.[facility] the event this information is protected by the Federal Confidentiality of Alcohol and Drug Abuse Patient Records regulations: The Federal rules restrict any use of the information to criminally investigate or prosecute any alcohol or drug abuse patient.[facility] the event this information is protected by the Federal Confidentiality of Alcohol and Drug Abuse Patient Records regulations: The Federal rules restrict any use of the information to criminally investigate or prosecute any alcohol or drug abuse patient.[facility] the event this information is protected by the Federal Confidentiality of Alcohol and Drug Abuse Patient Records regulations: The Federal rules restrict any use of the information to criminally investigate or prosecute any alcohol or drug abuse patient.[facility] the event this information is protected by the Federal Confidentiality of Alcohol and Drug Abuse Patient Records regulations: The Federal rules restrict any use of the information to criminally investigate or prosecute any alcohol or drug abuse patient.[facility] Hospital[facility] the event this information is protected by the Federal Confidentiality of Alcohol and Drug Abuse Patient Records regulations: The Federal rules restrict any use of the information to criminally investigate or prosecute any alcohol or drug abuse patient.[facility] HospitalIn the event this information is protected by the Federal Confidentiality of Alcohol and Drug Abuse Patient Records regulations: The Federal rules restrict any use of the information to criminally investigate or prosecute any alcohol or drug abuse patient.[facility] the event this information is protected by the Federal Confidentiality of Alcohol and Drug Abuse Patient Records regulations: The Federal rules restrict any use of the information to criminally investigate or prosecute any alcohol or drug abuse patient.[facility] Hospital[facility] the event this information is protected by the Federal Confidentiality of Alcohol and Drug Abuse Patient Records regulations: The Federal rules restrict any use of the information to criminally investigate or prosecute any alcohol or drug abuse patient.[facility] the event this information is protected by the Federal Confidentiality of Alcohol and Drug Abuse Patient Records regulations: The Federal rules restrict any use of the information to criminally investigate or prosecute any alcohol or drug abuse patient.[facility] the event this information is protected by the Federal Confidentiality of Alcohol and Drug Abuse Patient Records regulations: The Federal rules restrict any use of the information to criminally investigate or prosecute any alcohol or drug abuse patient.[facility] the event this information is protected by the Federal Confidentiality of Alcohol and Drug Abuse Patient Records regulations: The Federal rules restrict any use of the information to criminally investigate or prosecute any alcohol or drug abuse patient.[facility] HospitalIn the event this information is protected by the Federal Confidentiality of Alcohol and Drug Abuse Patient Records regulations: The Federal rules restrict any use of the information to criminally investigate or prosecute any alcohol or drug abuse patient.[facility] HospitalIn the event this information is protected by the Federal Confidentiality of Alcohol and Drug Abuse Patient Records regulations: The Federal rules restrict any use of the information to criminally investigate or prosecute any alcohol or drug abuse patient.[facility] HospitalIn the event this information is protected by the Federal Confidentiality of Alcohol and Drug Abuse Patient Records regulations: The Federal rules restrict any use of the information to criminally investigate or prosecute any alcohol or drug abuse patient.[facility] the event this information is protected by the Federal Confidentiality of Alcohol and Drug Abuse Patient Records regulations: The Federal rules restrict any use of the information to criminally investigate or prosecute any alcohol or drug abuse patient.[facility] the event this information is protected by the Federal Confidentiality of Alcohol and Drug Abuse Patient Records regulations: The Federal rules restrict any use of the information to criminally investigate or prosecute any alcohol or drug abuse patient.[facility] Hospital[facility] the event this information is protected by the Federal Confidentiality of Alcohol and Drug Abuse Patient Records regulations: The Federal rules restrict any use of the information to criminally investigate or prosecute any alcohol or drug abuse patient.[facility] HospitalIn the event this information is protected by the Federal Confidentiality of Alcohol and Drug Abuse Patient Records regulations: The Federal rules restrict any use of the information to criminally investigate or prosecute any alcohol or drug abuse patient.[facility] HospitalIn the event this information is protected by the Federal Confidentiality of Alcohol and Drug Abuse Patient Records regulations: The Federal rules restrict any use of the information to criminally investigate or prosecute any alcohol or drug abuse patient.[facility] HospitalIn the event this information is protected by the Federal Confidentiality of Alcohol and Drug Abuse Patient Records regulations: The Federal rules restrict any use of the information to criminally investigate or prosecute any alcohol or drug abuse patient.[facility] HospitalIn the event this information is protected by the Federal Confidentiality of Alcohol and Drug Abuse Patient Records regulations: The Federal rules restrict any use of the information to criminally investigate or prosecute any alcohol or drug abuse patient.[facility] HospitalIn the event this information is protected by the Federal Confidentiality of Alcohol and Drug Abuse Patient Records regulations: The Federal rules restrict any use of the information to criminally investigate or prosecute any alcohol or drug abuse patient.[facility] HospitalIn the event this information is protected by the Federal Confidentiality of Alcohol and Drug Abuse Patient Records regulations: The Federal rules restrict any use of the information to criminally investigate or prosecute any alcohol or drug abuse patient.[facility] HospitalIn the event this information is protected by the Federal Confidentiality of Alcohol and Drug Abuse Patient Records regulations: The Federal rules restrict any use of the information to criminally investigate or prosecute any alcohol or drug abuse patient.[facility] HospitalIn the event this information is protected by the Federal Confidentiality of Alcohol and Drug Abuse Patient Records regulations: The Federal rules restrict any use of the information to criminally investigate or prosecute any alcohol or drug abuse patient.[facility] HospitalIn the event this information is protected by the Federal Confidentiality of Alcohol and Drug Abuse Patient Records regulations: The Federal rules restrict any use of the information to criminally investigate or prosecute any alcohol or drug abuse patient.[facility] HospitalIn the event this information is protected by the Federal Confidentiality of Alcohol and Drug Abuse Patient Records regulations: The Federal rules restrict any use of the information to criminally investigate or prosecute any alcohol or drug abuse patient.[facility] HospitalIn the event this information is protected by the Federal Confidentiality of Alcohol and Drug Abuse Patient Records regulations: The Federal rules restrict any use of the information to criminally investigate or prosecute any alcohol or drug abuse patient.[facility] HospitalIn the event this information is protected by the Federal Confidentiality of Alcohol and Drug Abuse Patient Records regulations: The Federal rules restrict any use of the information to criminally investigate or prosecute any alcohol or drug abuse patient.[facility] HospitalIn the event this information is protected by the Federal Confidentiality of Alcohol and Drug Abuse Patient Records regulations: The Federal rules restrict any use of the information to criminally investigate or prosecute any alcohol or drug abuse patient.[facility] HospitalIn the event this information is protected by the Federal Confidentiality of Alcohol and Drug Abuse Patient Records regulations: The Federal rules restrict any use of the information to criminally investigate or prosecute any alcohol or drug abuse patient.[facility] HospitalIn the event this information is protected by the Federal Confidentiality of Alcohol and Drug Abuse Patient Records regulations: The Federal rules restrict any use of the information to criminally investigate or prosecute any alcohol or drug abuse patient.[facility] HospitalIn the event this information is protected by the Federal Confidentiality of Alcohol and Drug Abuse Patient Records regulations: The Federal rules restrict any use of the information to criminally investigate or prosecute any alcohol or drug abuse patient.[facility] HospitalIn the event this information is protected by the Federal Confidentiality of Alcohol and Drug Abuse Patient Records regulations: The Federal rules restrict any use of the information to criminally investigate or prosecute any alcohol or drug abuse patient.[facility] HospitalIn the event this information is protected by the Federal Confidentiality of Alcohol and Drug Abuse Patient Records regulations: The Federal rules restrict any use of the information to criminally investigate or prosecute any alcohol or drug abuse patient.[facility] HospitalIn the event this information is protected by the Federal Confidentiality of Alcohol and Drug Abuse Patient Records regulations: The Federal rules restrict any use of the information to criminally investigate or prosecute any alcohol or drug abuse patient.[facility] HospitalIn the event this information is protected by the Federal Confidentiality of Alcohol and Drug Abuse Patient Records regulations: The Federal rules restrict any use of the information to criminally investigate or prosecute any alcohol or drug abuse patient.[facility] HospitalIn the event this information is protected by the Federal Confidentiality of Alcohol and Drug Abuse Patient Records regulations: The Federal rules restrict any use of the information to criminally investigate or prosecute any alcohol or drug abuse patient.[facility] HospitalIn the event this information is protected by the Federal Confidentiality of Alcohol and Drug Abuse Patient Records regulations: The Federal rules restrict any use of the information to criminally investigate or prosecute any alcohol or drug abuse patient.[facility] HospitalIn the event this information is protected by the Federal Confidentiality of Alcohol and Drug Abuse Patient Records regulations: The Federal rules restrict any use of the information to criminally investigate or prosecute any alcohol or drug abuse patient.[facility] HospitalIn the event this information is protected by the Federal Confidentiality of Alcohol and Drug Abuse Patient Records regulations: The Federal rules restrict any use of the information to criminally investigate or prosecute any alcohol or drug abuse patient.[facility] HospitalIn the event this information is protected by the Federal Confidentiality of Alcohol and Drug Abuse Patient Records regulations: The Federal rules restrict any use of the information to criminally investigate or prosecute any alcohol or drug abuse patient.[facility] HospitalIn the event this information is protected by the Federal Confidentiality of Alcohol and Drug Abuse Patient Records regulations: The Federal rules restrict any use of the information to criminally investigate or prosecute any alcohol or drug abuse patient.[facility] HospitalIn the event this information is protected by the Federal Confidentiality of Alcohol and Drug Abuse Patient Records regulations: The Federal rules restrict any use of the information to criminally investigate or prosecute any alcohol or drug abuse patient.[facility] HospitalIn the event this information is protected by the Federal Confidentiality of Alcohol and Drug Abuse Patient Records regulations: The Federal rules restrict any use of the information to criminally investigate or prosecute any alcohol or drug abuse patient.[facility] HospitalIn the event this information is protected by the Federal Confidentiality of Alcohol and Drug Abuse Patient Records regulations: The Federal rules restrict any use of the information to criminally investigate or prosecute any alcohol or drug abuse patient.[facility] HospitalIn the event this information is protected by the Federal Confidentiality of Alcohol and Drug Abuse Patient Records regulations: The Federal rules restrict any use of the information to criminally investigate or prosecute any alcohol or drug abuse patient.[facility] Care Teams (unrecognized sec tion and content) Operating Cost Clerk Relationship Specialty Start Date End Date Shin Arias DO [address] [place], [place] [id number] PCP - General Family Practice 10/28/14 Operating Cost Clerk Relationship Specialty Start Date End Date Shin Arias DO PCP - General Family Medicine 10/03/18 Operating Cost Clerk Relationship Specialty Start Date End Date Shin Arias DO [address] [place] [address] PCP - General Family Practice 10/28/14 Operating Cost Clerk Relationship Specialty Start Date End Date Shin Arias, DO [address] [place] [address] PCP - General Family Practice 10/28/14 Operating Cost Clerk Relationship Specialty Start Date End Date Shin Arias, DO [address] [place] [address] PCP - General Family Practice 10/28/14 Operating Cost Clerk Relationship Specialty Start Date End Date Shin Arias, DO [address] [place] [address] PCP - General Family Practice 10/28/14 Operating Cost Clerk Relationship Specialty Start Date End Date Shin Arias, DO [address] [place] [address] PCP - General Family Practice 10/28/14 Operating Cost Clerk Relationship Specialty Start Date End Date Shin Arias, DO [address] [place] [address] PCP - General Family Practice 10/28/14 Operating Cost Clerk Relationship Specialty Start Date End Date Shin Arias, DO [address] [place] [address] PCP - General Family Practice 10/28/14 Operating Cost Clerk Relationship Specialty Start Date End Date Shin Arias, DO [address] [place] [address] PCP - General Family Medicine 10/28/14 Operating Cost Clerk Relationship Specialty Start Date End Date Shin Arias, DO [address] [place] [address] PCP - General Family Medicine 10/28/14 Operating Cost Clerk Relationship Specialty Start Date End Date Shin Arias, DO [address] [place] [address] PCP - General Family Medicine 10/28/14 Operating Cost Clerk Relationship Specialty Start Date End Date Shin Arias, DO [address] [place] [address] PCP - General Family Medicine 10/28/14 Operating Cost Clerk Relationship Specialty Start Date End Date Shin Arias, DO [address] [facility] [place] [address] PCP - General Family Medicine 10/28/14 Operating Cost Clerk Relationship Specialty Start Date End Date Shin Arias, DO [address] [facility] [place] [address] PCP - General Family Medicine 10/28/14 Operating Cost Clerk Relationship Specialty Start Date End Date Shin Arias, DO [address] [facility] [place] [address] PCP - General Family Medicine 10/28/14 Operating Cost Clerk Relationship Specialty Start Date End Date Shin Arias, DO [address] [facility] [place] [address] PCP - General Family Medicine 10/28/14 Operating Cost Clerk Relationship Specialty Start Date End Date Shin Arias, DO [address] [facility] [place] [place] [address] PCP - General Family Medicine 10/28/14 Operating Cost Clerk Relationship Specialty Start Date End Date Shin Arias, DO [address] [facility] [place] [address] PCP - General Family Medicine 10/28/14 Operating Cost Clerk Relationship Specialty Start Date End Date Shin Arias, DO [address] [place] [address] PCP - General Family Medicine 10/28/14 Operating Cost Clerk Relationship Specialty Start Date End Date Shin Arias, DO [address] [facility] [place] [address] PCP - General Family Medicine 10/28/14 Operating Cost Clerk Relationship Specialty Start Date End Date Shin Arias, DO [address] [place] [address] PCP - General Family Medicine 10/28/14 Operating Cost Clerk Relationship Specialty Start Date End Date Shin Arias, DO [address] [place] [address] PCP - General Family Medicine 10/28/14 Operating Cost Clerk Relationship Specialty Start Date End Date Shin Arias DO [address] [place] [address] PCP - General Family Medicine 10/28/14 Operating Cost Clerk Relationship Specialty Start Date End Date Shin rAias DO [address] [place] [address] PCP - General Family Medicine 10/28/14 Operating Cost Clerk Relationship Specialty Start Date End Date Shin Arias DO [address] [place] [address] PCP - General Family Medicine 10/28/14 Operating Cost Clerk Relationship Specialty Start Date End Date Shin Arias DO [address] [place] [address] PCP - General Family Medicine 10/28/14 Operating Cost Clerk Relationship Specialty Start Date End Date Shin Arias DO [address] [place] [address] PCP - General Family Medicine 10/28/14 Operating Cost Clerk Relationship Specialty Start Date End Date Shin Arias DO [address] [place] [address] PCP - General Family Medicine 10/28/14 Operating Cost Clerk Relationship Specialty Start Date End Date Shin Arias DO [address] [place] [address] PCP - General Family Medicine 10/28/14 Operating Cost Clerk Relationship Specialty Start Date End Date Shin Arias DO [address] [place] [address] PCP - General Family Medicine 10/28/14 Operating Cost Clerk Relationship Specialty Start Date End Date Shin Arias DO [address] [place] [address] PCP - General Family Medicine 10/28/14 Operating Cost Clerk Relationship Specialty Start Date End Date Shin Arias DO [address] [place] [address] PCP - General Family Medicine 10/28/14 Operating Cost Clerk Relationship Specialty Start Date End Date Shin Arias DO [address] [place] [address] PCP - General Family Medicine 10/28/14 Operating Cost Clerk Relationship Specialty Start Date End Date Shin Arias DO [address] [place] [address] PCP - General Family Medicine 10/28/14 Operating Cost Clerk Relationship Specialty Start Date End Date Shin Arias DO [address] [place] [address] PCP - General Family Medicine 10/28/14 Operating Cost Clerk Relationship Specialty Start Date End Date Shin Arias DO [address] [place] [address] PCP - General Family Medicine 10/28/14 Operating Cost Clerk Relationship Specialty Start Date End Date Shin Arias, DO [address] [place] [address] PCP - General Family Medicine 10/28/14 Operating Cost Clerk Relationship Specialty Start Date End Date Shin Arias, DO [address] [place] [address] PCP - General Family Medicine 10/28/14 Operating Cost Clerk Relationship Specialty Start Date End Date Shin Arias, [address] [place] [address] PCP - General Family Medicine 10/28/14 Operating Cost Clerk Relationship Specialty Start Date End Date Shin Arias, [address] [place] [address] PCP - General Family Medicine 10/28/14 Operating Cost Clerk Relationship Specialty Start Date End Date Shin Arias, DO [address] [place] [address] PCP - General Family Medicine 10/28/14 Operating Cost Clerk Relationship Specialty Start Date End Date Shin Arias, [address] [place] [address] PCP - General Family Medicine 10/28/14 Operating Cost Clerk Relationship Specialty Start Date End Date Shin Arias, DO [address] [place] [address] PCP - General Family Medicine 10/28/14 Jossy Gustafson, 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 SPECIALIST [address] [facility], [place] [address] [phone] [facility] 04/21/24 Ivana Mitchell, 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 SPECIALIST [address] [facility], [place] [address] [phone] [facility] 04/21/24 Operating Cost Clerk Relationship Specialty Start Date End Date Shin Arias DO [address] [place], [place] [address]43- PCP - General [facility] Medicine 10/28/14 Jossy Gustafson, 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 SPECIALIST [address] [place] [address] [facility] 04/21/24 Ivana Mitchell, 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 SPECIALIST [address] [place] [address] [facility] 04/21/24 Operating Cost Clerk Relationship Specialty Start Date End Date Shin Arias DO [address] [place] [address] PCP - General [facility] Medicine 10/28/14 Jossy Gustafson, 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 SPECIALIST [address] [place] [address] [facility] 04/21/24 Ivana Mitchell, 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 SPECIALIST [address] [place] [address] [facility] 04/21/24 Reason for Visit (unrecogniz ed section and content) Reason Comments Pain C/o bunion on rt chito t, hx of lft foot bunion sx in 2011 and had a bad time with it, has issues with it still, half-way problem, has numbness in the toes and [...] deformity of right foot Shin Arias, DO [address] [place] [address] Bairon Lofton DPM [address] [facility] [address] [place] [address] Referral ID Status Reason Start Date Expiration Date V isits Requested Visits Authorized [id number] New Request 07/22/2021 08/16/2022 1 1 Reason [...] Specialty Diagnoses / Procedures Referred By Cassie payen Referred [facility] Diagnoses SOB (shortness of breath) Procedures SPIROMETRY - BASELINE AND POST DILATOR BRNCDILAT RSPSE SPMTRY PRE&POST-BRNCDILAT ADMN Arias, Shin L, DO [address] [place] [address] [address] Referral ID Status Reason Start Date Expiration Date V isits Requested Visits Authorized [id number] Closed Auto-Generate d Referral 07/19/2022 08/18/2023 1 1 Specialty Diagnoses / Procedures Referred By Contac t Referred To [facility] Diagnoses SOB (shortness of breath) Procedures LUNG VOLUMES Shin Arias, DO [address] [place] [address] [facility] [place] [address] [place] [address] Referral ID Status Reason Start Date Expiration Date V isits Requested Visits Authorized [id number] Closed Auto-Generate d Referral 07/19/2022 08/18/2023 1 [...] Reason Onset Date Comments Refill Request 01/01/2024 Reason Comments Patient Question Reason Comments handicap placard Reason Comments F/U on Bone Density Results Reason Comments Follow Up Reason Comments Medication Request Reason Comments Discussion Bunionectomy R foot; Dr. Urias 07/23 Reason Onset Date Comments Refill Request 03/15/2024 Reason Onset Date Comments Refill Request 04/13/2024 ENRIQUETA Reason Onset Date Comments Refill Request 04/15/2024 Reason Onset Date Comments Refill Request 05/21/2024 Goals (unrecognized section and content) Goals may [...] BE BASED ON THE PRIMARY CLINICAL RECORDS. [facility] [employer] [facility]. provides no warranty or guarantee of the accuracy or completeness of information in this document.
== END 2024-07-17 10:53 | disposition home or self-care (01) ==
LOC: RAD 10:52
PROVIDERS: Visit Provider Podiatrist Foot & Ankle Surgery
DX: M25.571 Pain in right ankle and joints of right foot (principal); M24.674 Ankylosis, right foot
CPT/HCPCS: 73630